=== PATIENT | female | born 1975 ===

== ENCOUNTER 2020-08-12 10:29 | Emergency (ER) | payer OTHER, SELFPAY ==
[2020-08-12 10:46] VITALS: BP 152/88; PULSE 94; RESP 16; TEMP 36.7; O2SAT 98; BMI 27.4
--- NOTE | 2020-08-12 10:55 | ED_ITS ---
HPI - Back Pain/Injury General Chief Complaint: Back Pain/Injury Stated Complaint: fell back pain,also med refill Time Seen by Provider: 08/12/20 10:55 Source: patient Mode of arrival: ambulatory History of Present Illness HPI Narrative: 44-year-old female with a past medical history of asthma, hyperlipidemia, diabetes, presenting to ED complaining of headache, neck pain, & low back pain s/p mechanical fall on the snow 2 days ago. Reports slipped and fell, denies preceding including CP/SOB/lightheadedness/dizziness. Admits having tailbone and head, denies LOC. Denies taking anticoagulation. Patient requesting multiple medication prescription refills as recently moved from [place] 1 month ago had has not establish care with a primary care doctor. Reports has been out of medications for about 1 week, was taking less doses to stretch them. Denies vision changes nausea/vomiting, abdominal pain, urinary continence retention, SI/HI MD elicited complaint: back pain Related Data Previous Rx's Medication Instructions Recorded amitriptyline 75 mg PO DAILY #30 tab 08/12/20 bupropion HCl 300 mg PO QAM #30 tab 08/12/20 gabapentin 800 mg PO TID #30 tab 08/12/20 insulin lispro protamin-lispro 20 unit SUBCUT TID #10 ml 08/12/20 [Humalog Mix 50-50 Insuln U-100] lidocaine [Lidoderm] 1 patch TOPICAL DAILY PRN #30 ea 08/12/20 MDD remove after 12 hours quetiapine 200 mg PO DAILY #30 tab 08/12/20 temazepam 30 mg PO BEDTIME PRN #10 cap 08/12/20 trazodone 150 mg PO BEDTIME #30 tab 08/12/20 Allergies Allergy/AdvReac Type Severity Reaction Status Date / Time Sulfa (Sulfonamide Allergy Unknown Verified 08/12/20 10:46 Antibiotics) Review of Systems Review of Systems: Constitutional: No Weight loss, No Fever, No Chills Cardiovascular: No Chest Pain, No SOB Respiratory: No Cough, No Sputum, No Wheezing Gastrointestinal: No Nausea, No Vomiting, No Abdominal pain Genitourinary: No Urinary Frequency, No Hematuria, No Urinary Incontinence/retention, No Urgency, No Flank Pain Musculoskeletal: +back and neck pain, No Myalgias, No Joint Swelling Skin: No Skin Lesions, No rash Neuro: No Weakness, No Numbness, No Paresthesias, +headache, No LOC Psych: No SI/HI Yes all other systems are reviewed and are negative FORMERLY [facility], [facility] Past Medical History Attestation statement: The following information was validated with the patient. Medical History (Updated 08/12/20 @ 12:33 by CYNTHIA Obando) Asthma High cholesterol IDDM (insulin dependent diabetes mellitus) Surgical History (Updated 08/12/20 @ 10:50 by Perla Hassan) H/O tubal ligation H/O: hysterectomy Social History Social History Advance Directives: No Advance Directives Information Provided: Yes Physical Exam Vital Signs: Vital Signs: Last Vital Signs Temp 97.4 F 08/12/20 13:18 Pulse 91 08/12/20 13:18 Resp 16 08/12/20 13:18 BP 114/77 08/12/20 13:18 Pulse Ox 96 08/12/20 13:18 Body Mass Index 27.4 Const: General: cooperative and healthy appearing Orientation/consciousness: patient oriented x3 Limitations: no limitations HENMT: Other: +ttp to right posterior scalp Head: Yes normal to inspection, Yes No palpable skull fracture present, No Beltran's sign, No contusion, No hematoma, No laceration and No raccoon eyes Ears: hearing grossly normal bilaterally General nose exam: Normal external nose present Face and sinus: Yes normal facial exam Mouth: Normal oral and palatal mucosa present Throat: Yes uvula midline Eyes: General: appearance normal, both eyes and all related structures Pupils: Equal, round and reactive pupils present EOM: EOMs intact bilaterally Neck: Other: No midline cervical spinous tenderness or step-offs. + bilateral paraspinal tenderness Neck: Yes normal visual inspection Resp: Effort & Inspection: normal respiratory effort Cardio: Rate: regular rate GI: Inspection: Yes normal to inspection Palpation (GI): Soft to palpation, nontender, no guarding and not rigid Back/Spine/Pelvis: Other: No midline thoracic or lumbar spinous tenderness. No deformity. + upper thoracic and lower lumbar paraspinal/MSK tenderness to palpation Skin: Rashes: no rashes Wounds: no wounds Neuro: Other: No saddle anesthesia, ambulating with steady gait General: patient oriented x3, gait normal, tone normal and moves all extremities Cranial nerves: Yes Equal, round and reactive pupils present Gait exam (Neuro): Normal gait present Motor exam (neuro): 5/5 motor strength present throughout Extrem: General: Yes normal to inspection Course Course Course Narrative: * POC 268 * Head CT w/o acute findings, C-spine CT with mild degenerative changes, no fracture or dislocation * Imaging results discussed with patient including worrisome signs and symptoms and strict return precautions. Discussed that she is to establish care with PCP, she verbalized understanding. * 1357- patient requesting back XR's > will obtain lumbar spine x-rays prior to DC * 1536--lumbar x-ray unremarkable MDM - Back Pain/Injury MDM Narrative Medical decision making narrative: 44-year-old female with a past medical history of asthma, hyperlipidemia, diabetes, presenting to ED complaining of headache, neck pain, & low back pain s/p mechanical fall on the snow 2 days ago & requesting multiple medication prescription refills as recently moved from [place] 1 month ago had has not establish care with a primary care doctor. On exam VSS, NAD/well-appearing, no midline spine tenderness throughout, no red flag symptoms. Low concern for cauda equina/cord compression. Lower concern for ICH/fracture. Likely MSK pain. Patient brought empty bottles of prescriptions to ED, last refilled on 06/30/2020 Discussed with patient importance of establishing care with a PCP due to high doses/controlled substances which she is prescribed Plan: Head/C-spine CT, POC glucose, refill Rx's Lab Data Labs: Lab Results 08/12/20 Range/Units 11:53 POC Glucose 268 H (60-115) mg/dL Discharge Plan Discharge Clinical Impression: Neck pain, Medication refill Back pain Qualifiers: Back pain location: back pain in unspecified location Chronicity: acute Back pain laterality: bilateral Qualified Code(s): M54.9 - Dorsalgia, unspecified Fall Qualifiers: Encounter type: initial encounter Qualified Code(s): W19.XXXA - Unspecified fall, initial encounter Patient Disposition: Home, Self-Care Instructions: Back Pain (ED), Medicine Refill (ED) Additional Instructions: Your imaging studies did not show any acute findings Your pain is likely musculoskeletal Lidoderm patches are numbing patches, apply to painful area In addition take Tylenol and ibuprofen at home If symptoms persist or worsen, pain becomes unbearable, you developed urinary retention or incontinence, or weakness return to the ED If he develop constant worsening headache, persistent nausea/vomiting, visual change or loss return to the ED Continue taking prescribed medications, however you need to establish care with a primary care doctor for continued refills of her prescriptions If you have thoughts of hurting herself or hurting others return to the ED im mediately Prescriptions: New trazodone 150 mg tablet 150 mg PO BEDTIME Qty: 30 RF: 0 temazepam 30 mg capsule 30 mg PO BEDTIME PRN (Reason: sleep) Qty: 10 RF: 0 bupropion HCl 300 mg tablet extended release 24 hr 300 mg PO QAM Qty: 30 RF: 0 quetiapine 200 mg tablet 200 mg PO DAILY Qty: 30 RF: 0 amitriptyline 75 mg tablet 75 mg PO DAILY Qty: 30 RF: 0 gabapentin 800 mg tablet 800 mg PO TID Qty: 30 RF: 0 Humalog Mix 50-50 Insuln U-100 100 unit/mL (50-50) suspension 20 unit subcut TID Qty: 10 RF: 1 lidocaine [Lidoderm] 5 % adhesive patch,medicated 1 patch topical DAILY MDD remove after 12 hours PRN (Reason: pain) Qty: 30 RF: 0 Referrals: Yoni Altamirano MD [Physician] - 2 days De Loyd MD [Physician] - 2 days Anika Boykin MD [Physician] - 2 days Print Language: Chinese
--- NOTE | 2020-08-12 11:13 | CT_ITS ---
EXAMINATION: HEAD CT AND CERVICAL SPINE CT CLINICAL INFORMATION: Trauma/fall. Hit head. COMPARISON: None TECHNIQUE: Axial images through the head and cervical spine without contrast. Sagittal and coronal reconstructions on the technologist workstation were performed. Patient dose 1297+6 1 5 mg/cm This CT examination was performed using dose optimization techniques as appropriate, variously including the following: *Automated exposure control *Adjustment of mA and/or kV according to patient size (this includes techniques or standardized protocols for targeted exams where dose is matched to indication/reason for exam; i.e. extremities or head) *Use of iterative reconstruction technique FINDINGS: Head CT: There is no evidence of an extra-axial collection. There is no evidence of intra-axial or extra-axial hemorrhage. The ventricles and extra-axial CSF spaces are appropriate. Bridges-white matter differentiation is normal. No mass, mass effect or infarct is seen. Review at bone windows is normal. No skull fracture is seen. There are inflammatory changes seen in the right maxillary sinus. Cervical spine: Bone alignment is normal. No fracture or dislocation is seen. There is evidence of mild degenerative spondylosis from C4-C5 to C6-C7. Disc spaces are normal. Prevertebral soft tissues are normal. There is shotty cervical lymphadenopathy. Visualized lung apices are clear. CT/CT cervical spine wo con IMPRESSION: Head CT: Unremarkable exam. Cervical spine: Mild degenerative changes. No fracture or dislocation.
[2020-08-12 11:58] LABS: Glucose, Whole Blood 268 mg/dL (60-115)
--- NOTE | 2020-08-12 13:17 | PC.NURSE ---
pt requesting pain medication prior to dc, steffany morataya aware, awaiting strategic communications specialist
[2020-08-12 13:18] VITALS: BP 114/77; PULSE 91; RESP 16; TEMP 36.3; O2SAT 96
[2020-08-12] MEDS: Cyclobenzaprine HCl 5 MG TABLET PO (13:49)
[2020-08-12] MEDS: Lidocaine 4 % Patch ADH..PATCH 1 PATCH TRANSDERMA (13:50)
[2020-08-12] MEDS: Acetaminophen 325 MG TABLET 650 MG PO (13:50)
--- NOTE | 2020-08-12 13:55 | XR_ITS ---
EXAMINATION: XR LUMBOSACRAL SPINE CLINICAL INFORMATION: Fall COMPARISON: None TECHNIQUE: Three views of the lumbosacral spine. FINDINGS: Bone alignment is normal. No fracture or dislocation is seen. Disc spaces are normal. XR/XR lumbar spine 2-3V IMPRESSION: Unremarkable examination.
--- NOTE | 2020-08-12 13:56 | PC.NURSE ---
PT NOW REQUESTING LOWER BACK XRAYS PRIOR TO DC, PA TRACY AWARE AND FILMS TO BE ORDERED
== END 2020-08-12 15:52 | disposition home or self-care (01) ==
PROVIDERS: Emergency Provider Emergency Medicine
DX: S39.92XA Unspecified injury of lower back, initial encounter (principal); M54.2 Cervicalgia; M54.9 Dorsalgia, unspecified; G44.309 Post-traumatic headache, unspecified, not intractable; W01.0XXA Fall on same level from slipping, tripping and stumbling without subsequent striking against object, initial encounter; Y93.9 Activity, unspecified; Y92.9 Unspecified place or not applicable; Y99.9 Unspecified external cause status; Z79.899 Other long term (current) drug therapy
CPT/HCPCS: 70450; 72100; 72125; 82947; 99283; 99284

== ENCOUNTER 2022-11-18 08:03 | Outpatient (REF) | payer MEDICAID, SELFPAY ==
--- NOTE | ~2022-11-18 | FL_ITS ---
EXAMINATION: FL BARIUM SWALLOW CLINICAL INFORMATION: Dysphagia/vomiting. COMPARISON: None available. TECHNIQUE: Barium swallow examination is performed using fluoroscopic evaluation in addition to multiple fluoroscopic spot views. The patient is imaged both upright and prone and using both thick and thin sulfate along with effervescent granules. Fluoroscopy time: 2.7 minutes DAP: 5.826 Gycm2 Images: 35 FINDINGS: There is normal elevation of the soft palate while saying 'candy'. There is normal apposition of the focal cords while saying 'E'. There was 1 episode of minimal aspiration which elicited a cough reflex. No nasopharyngeal reflux identified. No cricopharyngeal hypertrophy or Zenker's diverticulum. Patient swallowed thin and thick barium as well as half-inch diameter barium tablet and barium-coated turkey. There is noted to be esophageal hypomotility without dysmotility. No mucosal abnormality was appreciated. No hiatal hernia. No gastroesophageal reflux elicited including with water siphon test. FL/FL barium swallow IMPRESSION: 1 episode of aspiration with thick liquid which elicited a cough reflex. Mild esophageal hypomotility.
[2022-11-21 15:28] LABS: Anti Nuclear Antibody Screen NEGATIVE (NEGATIVE)
== END 2022-11-18 08:04 | disposition home or self-care (01) ==
LOC: HO.XRAY 08:03
PROVIDERS: PCP Internal Medicine; Visit Provider Internal Medicine
DX: R13.12 Dysphagia, oropharyngeal phase (principal)
CPT/HCPCS: 36415; 74220; 86038; 86039

== ENCOUNTER 2022-11-26 13:09 | Outpatient (REF) | payer MEDICAID, SELFPAY ==
--- NOTE | ~2022-11-26 | MR_ITS ---
EXAMINATION: MRI OF THE BRAIN WITHOUT CONTRAST CLINICAL INFORMATION: Classic migraine and white matter signal on prior MRI scan. COMPARISON: There are no prior images available for comparison at time of dictation. Report of MRI scan of the brain 09/11/2013 was reviewed. TECHNIQUE: MRI of the brain was obtained using routine sequences without contrast. FINDINGS: No diffusion abnormalities are identified to suggest an acute or subacute infarct. No mass effect or midline shift is seen. The ventricles and sulci are normal in size. There is a cavum septum interpositum. There are multiple scattered areas of hyperintense T2 and FLAIR signal in the periventricular and subcortical white matter, which are nonspecific but may be in a distribution suggestive of demyelination in the correct clinical setting. The patient is relatively young for microvascular ischemic changes. No extra-axial fluid collections are seen. The brainstem and cerebellum are normal. No pathologic magnetic susceptibility artifact is identified on the gradient refocused acquisition. The craniovertebral junction, marrow signal, and midline structures are normal. The major intracranial flow-voids at the level of the [place] are preserved. The dural venous sinus flow-voids are maintained. There is trace fluid at the right mastoid tip. There is mucoperiosteal thickening in the right maxillary and bilateral ethmoid sinuses. The nasal septum is significantly deviated to the left. MR/MR head/brain wo con IMPRESSION: 1. There are no acute bleeds or infarcts. No masses are demonstrated. 2. There are scattered areas of hyperintense T2 and FLAIR signal in the white matter, which by report were present on prior imaging. There are in a nonspecific distribution, but may be consistent with demyelination in the correct clinical setting. The patient is relatively young for chronic microvascular ischemic changes.
== END 2022-11-26 13:10 | disposition home or self-care (01) ==
LOC: HO.MRI 13:09
PROVIDERS: Visit Provider Internal Medicine
DX: G43.109 Migraine with aura, not intractable, without status migrainosus (principal)
CPT/HCPCS: 70551

== ENCOUNTER 2022-12-25 12:33 | Emergency (ER) | payer MEDICAID, SELFPAY ==
--- NOTE | ~2022-12-25 | XR_ITS ---
EXAMINATION: XR CHEST CLINICAL INFORMATION: Chest pain. COMPARISON: None available. TECHNIQUE: Frontal view of the chest was obtained. FINDINGS: No significant abnormality is noted involving the heart, lungs, mediastinum, bony thorax or soft tissues. XR/XR chest 1V IMPRESSION: Unremarkable chest examination.
--- NOTE | ~2022-12-25 | CT_ITS ---
EXAMINATION: CT ABDOMEN AND PELVIS WITH CONTRAST CLINICAL INFORMATION: Abdominal pain. COMPARISON: None available. TECHNIQUE: Multidetector volumetric images were obtained from the superior aspect of the liver through the pubic symphysis following administration 85 mL of Omnipaque 350 intravenous contrast. Sagittal and coronal reformatted images were obtained on the technologist's workstation. Oral contrast: No This CT examination was performed using dose optimization techniques as appropriate, variously including the following: *Automated exposure control *Adjustment of mA and/or kV according to patient size (this includes techniques or standardized protocols for targeted exams where dose is matched to indication/reason for exam; i.e. extremities or head) *Use of iterative reconstruction technique DLP: 564 mGy-cm FINDINGS: LUNG BASES: The lung bases appear clear, with no evidence of inflammation or nodules. LIVER, GALLBLADDER, AND BILIARY TREE: The liver appears unremarkable in size, shape, and attenuation. No focal hepatic lesion or biliary ductal dilatation is appreciated. Unremarkable appearance of the gallbladder. PANCREAS: Unremarkable SPLEEN: Unremarkable ADRENAL GLANDS: Unremarkable KIDNEYS AND URETERS: The kidneys appear unremarkable in size, shape, and attenuation. No hydronephrosis, hydroureter, or calculi seen. BLADDER: Unremarkable GASTROINTESTINAL TRACT: The small and large bowel appear unremarkable. ABDOMINAL WALL: No significant hernia is appreciated. LYMPH NODES: No evidence of adenopathy by size criteria. VASCULAR: Unremarkable PELVIC VISCERA: Status post hysterectomy. Approximately 5.4 x 4.5 x 3.8 cm, smooth, ovoid left adnexal structure containing an approximately 1 cm peripheral calcification (image 77, axial series 3; image 48, coronal series 5). OSSEOUS STRUCTURES: Unremarkable CT/CT abdomen pelvis w IV con IMPRESSION: No acute finding. Approximately 5.4 x 4.5 x 3.8 cm, smooth, ovoid left adnexal structure containing an approximately 1 cm peripheral calcification. Recommend pelvic ultrasound performed on a nonemergent basis for further characterization.
--- NOTE | 2022-12-25 12:35 | ECG_ITS ---
Test Reason : cp Blood Pressure : / mmHG Vent. Rate : 109 BPM Atrial Rate : 109 BPM P-R Int : 164 ms QRS Dur : 158 ms QT Int : 378 ms P-R-T Axes : 059 -36 096 degrees QTc Int : 509 ms Sinus tachycardia Possible Left atrial enlargement Left axis deviation Left bundle branch block Abnormal ECG No previous ECGs available Referred By: Sindhu Shen Electronically Signed By:GISEL ALONSO MD
--- NOTE | 2022-12-25 12:36 | ED.CHESTPAIN ---
HPI - Chest Pain General Chief Complaint: Abdominal Pain <CYNTHIA Sullivan - Last Filed: 12/25/22 12:59> Stated Complaint: high bp, chest pain,back pain <CYNTHIA Sullivan - Last Filed: 12/25/22 12:59> Time Seen by Provider: 12/25/22 13:14 <CYNTHIA Sullivan - Last Filed: 12/25/22 12:59> Source: patient <Javi Madera MD - Last Filed: 12/25/22 16:09> Mode of arrival: ambulatory <Javi Madera MD - Last Filed: 12/25/22 16:09> Limitations: no limitations <Javi Madera MD - Last Filed: 12/25/22 16:09> History of Present Illness HPI narrative: This is 47-year-old patient presented to the emergency department complaining of nausea vomiting upper abdominal pain. Patient has history of diabetes high blood pressure. She has chest pain vomiting. <Javi Madera MD - Last Filed: 12/25/22 16:09> MD complaint: chest pain <Javi Madera MD - Last Filed: 12/25/22 16:09> Onset (ago): day(s) (1) <Javi Madera MD - Last Filed: 12/25/22 16:09> Timing of current episode: episodic <Javi Madera MD - Last Filed: 12/25/22 16:09> Onset: during rest <Javi Madera MD - Last Filed: 12/25/22 16:09> Pain location: substernal <Javi Madera MD - Last Filed: 12/25/22 16:09> Pain radiation: none <Javi Madera MD - Last Filed: 12/25/22 16:09> Severity: mild <Javi Madera MD - Last Filed: 12/25/22 16:09> Quality: aching <Javi Madera MD - Last Filed: 12/25/22 16:09> Exacerbating factors: nothing <Javi Madera MD - Last Filed: 12/25/22 16:09> Risk Factors Coronary artery disease risk factors: diabetes <Javi Madera MD - Last Filed: 12/25/22 16:09> Thoracic aortic dissection risk factors: none <Javi Madera MD - Last Filed: 12/25/22 16:09> Related Data Home Medications: Previous Rx's Medication Instructions Recorded amitriptyline 75 mg tablet 75 mg PO DAILY #30 tabs 08/12/20 bupropion HCl 300 mg 24 hr tablet, 300 mg PO QAM #30 tabs 08/12/20 extended release gabapentin 800 mg tablet 800 mg PO TID #30 tabs 08/12/20 insulin lispro protamine-lispro 20 unit (0.2 mL) subcut TID #10 mL 08/12/20 100 unit/mL (50-50) subcutaneous susp (Humalog Mix 50-50 Insuln U-100) lidocaine 5 % topical patch 1 patch topical DAILY PRN pain #30 08/12/20 (Lidoderm) ea quetiapine 200 mg tablet 200 mg PO DAILY #30 tabs 08/12/20 temazepam 30 mg capsule 30 mg PO BEDTIME PRN sleep #10 caps 08/12/20 trazodone 150 mg tablet 150 mg PO BEDTIME #30 tabs 08/12/20 <CYNTHIA Sullivan - Last Filed: 12/25/22 12:59> Allergies/Adverse Reactions: Allergies Allergy/AdvReac Type Severity Reaction Status Date / Time Sulfa (Sulfonamide Allergy Unknown Verified 12/25/22 12:57 Antibiotics) <CYNTHIA Sullivan - Last Filed: 12/25/22 12:59> Review of Systems Constitutional: Constitutional: Reports no additional constitutional complaints <Javi Madera MD - Last Filed: 12/25/22 16:09> ENT: Reports system reviewed and no additional complaints, except as documented <Javi Madera MD - Last Filed: 12/25/22 16:09> Respiratory: Respiratory: Reports no additional respiratory complaints <Javi Madera MD - Last Filed: 12/25/22 16:09> Neurologic: Reports system reviewed and no additional complaints, except as documented <Javi Madera MD - Last Filed: 12/25/22 16:09> [facility] [place] Past Medical History [facility] [place] Narrative: Diabetes/htn <Javi Madera MD - Last Filed: 12/25/22 16:09> Medical History: Medical History Asthma High cholesterol IDDM (insulin dependent diabetes mellitus) <CYNTHIA Sullivan - Last Filed: 12/25/22 12:59> Surgical History: Surgical History H/O tubal ligation H/O: hysterectomy <CYNTHIA Sullivan - Last Filed: 12/25/22 12:59> Social History Social History: Social History Alcohol intake: never Smoked in Last 30 Days: No Use of substances other than those prescribed or required for medical reasons: No Advance Directives: No Advance Directives Information Provided: Yes Patient : No <CYNTHIA Sullivan - Last Filed: 12/25/22 12:59> Physical Exam Vital Signs: Vital Signs: Last Vital Signs Temp 98 F 12/25/22 15:13 Pulse 107 H 12/25/22 13:23 Resp 15 12/25/22 15:13 BP 140/69 H 12/25/22 15:13 Pulse Ox 98 12/25/22 15:13 O2 Del Method Room Air 12/25/22 15:13 BMI result Body Mass Index 28.6 <CYNTHIA Sullivan - Last Filed: 12/25/22 12:59> Vital Signs: Last Vital Signs Temp 98 F 12/25/22 15:13 Pulse 107 H 12/25/22 13:23 Resp 15 12/25/22 15:13 BP 140/69 H 12/25/22 15:13 Pulse Ox 98 12/25/22 15:13 O2 Del Method Room Air 12/25/22 15:13 BMI result Body Mass Index 28.6 <Javi Madera MD - Last Filed: 12/25/22 16:09> Vital Signs: Last Vital Signs Temp 98 F 12/25/22 15:13 Pulse 107 H 12/25/22 13:23 Resp 15 12/25/22 15:13 BP 140/69 H 12/25/22 15:13 Pulse Ox 98 12/25/22 15:13 O2 Del Method Room Air 12/25/22 15:13 BMI result Body Mass Index 28.6 <Claudia Abel MD - Last Filed: 12/25/22 18:03> Const: General: cooperative and comfortable <MD Carl Andrews Last Filed: 12/25/22 16:09> Nutritional Appearance: average body habitus <Javi Madera MD - Last Filed: 12/25/22 16:09> HEENT: Head: Yes normal to inspection <MD Carl Andrews Last Filed: 12/25/22 16:09> General nose exam: Normal external nose present <MD Carl Andrews Last Filed: 12/25/22 16:09> Face and sinus: Yes normal facial exam <MD Carl Andrews Last Filed: 12/25/22 16:09> Mouth: Normal oral and palatal mucosa present <MD Carl Andrews Last Filed: 12/25/22 16:09> Neck: Neck: Yes normal visual inspection and Yes full ROM <MD Carl Andrews Last Filed: 12/25/22 16:09> Chest: Chest palpation & inspection: normal inspection of the chest <MD Carl Andrews Last Filed: 12/25/22 16:09> Resp: Effort & Inspection: normal respiratory effort <MD Carl Andrews Last Filed: 12/25/22 16:09> Auscultation: clear to auscultation bilaterally <MD Carl Andrews Last Filed: 12/25/22 16:09> Cardio: Jugular venous distension: no JVD <MD Carl Andrews Last Filed: 12/25/22 16:09> Rate: regular rate <MD Carl Andrews Last Filed: 12/25/22 16:09> Rhythm: regular rhythm <MD Carl Andrews Last Filed: 12/25/22 16:09> GI: Inspection: Yes normal to inspection <MD Carl Andrews Last Filed: 12/25/22 16:09> Palpation (GI): Soft to palpation, not firm, nontender and no guarding <MD Carl Andrews Last Filed: 12/25/22 16:09> Skin: General skin exam: no rashes or lesions noted, elasticity normal and turgor normal <Javi Madera MD - Last Filed: 12/25/22 16:09> Course Course Course Narrative: RMNathaniel: 47-year-old female with a past medical history of asthma, HLD, diabetes, HTN, presenting to the ED complaining of HTN at home last night, epigasrtic abdominal pain, nausea & vomiting. states pain radiates up chest to back described as burning w/ SOB. Reports hx anxiety with similar sx. Tachycardic, anxious, BP 137/73 in triage. EKG showing LBBB (no priors to compare, pt reports no known hx block) EKG, Labs, CXR ordered Full HPI, ROS and PE to be performed by primary ED provider. <CYNTHIA Sullivan - Last Filed: 12/25/22 12:59> Reevaluation(s) Reevaluation #1: REPEAT ELECTROCARDIOGRAM A NOW SHOW THAT SHE IS STILL IN SINUS RHYTHM A RATE 97 BUT A NARROW COMPLEX HER PRIOR LEFT BUNDLE-BRANCH BLOCK RESOLVED <Javi Madera MD - Last Filed: 12/25/22 16:09> Time: 14:17 <Javi Madera MD - Last Filed: 12/25/22 16:09> Reevaluation #2: doing better will need repeat tropi pt signed out to Dr Abel pending repeat tropi and ct <Javi Madera MD - Last Filed: 12/25/22 16:09> Medications Administered Discontinued Medications Generic Name Dose Route Start Last Admin Trade Name Goran PRN Reason Stop Dose Admin Famotidine 20 mg 12/25/22 14:00 12/25/22 14:03 Famotidine/Pf 20 Mg/2 Ml Vial IVPUSH 12/25/22 14:01 20 mg ONCE ONE Administration Sodium Chloride 1,000 mls @ 999 mls/hr 12/25/22 13:30 12/25/22 16:34 Ns IVCONT 12/25/22 14:30 Infused .Q1H1M RUKHSANA Infusion Iohexol 100 ml 12/25/22 16:25 12/25/22 16:26 Iohexol 350 Mg/Ml 100 Ml Infus..Btl IV 12/25/22 16:26 85 ml ONCE ONE Administration Ondansetron HCl 4 mg 12/25/22 13:18 12/25/22 14:03 Ondansetron Hcl 4 Mg/2 Ml Vial IVPUSH 12/25/22 13:19 4 mg ONCE ONE Administration Ondansetron HCl 4 mg 12/25/22 13:19 12/25/22 14:37 Ondansetron Hcl 4 Mg/2 Ml Vial IVPUSH 12/25/22 13:20 Not Given ONCE ONE <CYNTHIA Sullivan - Last Filed: 12/25/22 12:59> Medications Administered Discontinued Medications Generic Name Dose Route Start Last Admin Trade Name Freq PRN Reason Stop Dose Admin Famotidine 20 mg 12/25/22 14:00 12/25/22 14:03 Famotidine/Pf 20 Mg/2 Ml Vial IVPUSH 12/25/22 14:01 20 mg ONCE ONE Administration Sodium Chloride 1,000 mls @ 999 mls/hr 12/25/22 13:30 12/25/22 16:34 Ns IVCONT 12/25/22 14:30 Infused .Q1H1M RUKHSANA Infusion Iohexol 100 ml 12/25/22 16:25 12/25/22 16:26 Iohexol 350 Mg/Ml 100 Ml Infus..Btl IV 12/25/22 16:26 85 ml ONCE ONE Administration Ondansetron HCl 4 mg 12/25/22 13:18 12/25/22 14:03 Ondansetron Hcl 4 Mg/2 Ml Vial IVPUSH 12/25/22 13:19 4 mg ONCE ONE Administration Ondansetron HCl 4 mg 12/25/22 13:19 12/25/22 14:37 Ondansetron Hcl 4 Mg/2 Ml Vial IVPUSH 12/25/22 13:20 Not Given ONCE ONE <Javi Madera MD - Last Filed: 12/25/22 16:09> Medications Administered Discontinued Medications Generic Name Dose Route Start Last Admin Trade Name Freq PRN Reason Stop Dose Admin Famotidine 20 mg 12/25/22 14:00 12/25/22 14:03 Famotidine/Pf 20 Mg/2 Ml Vial IVPUSH 12/25/22 14:01 20 mg ONCE ONE Administration Sodium Chloride 1,000 mls @ 999 mls/hr 12/25/22 13:30 12/25/22 16:34 Ns IVCONT 12/25/22 14:30 Infused .Q1H1M RUKHSANA Infusion Iohexol 100 ml 12/25/22 16:25 12/25/22 16:26 Iohexol 350 Mg/Ml 100 Ml Infus..Btl IV 12/25/22 16:26 85 ml ONCE ONE Administration Ondansetron HCl 4 mg 12/25/22 13:18 12/25/22 14:03 Ondansetron Hcl 4 Mg/2 Ml Vial IVPUSH 12/25/22 13:19 4 mg ONCE ONE Administration Ondansetron HCl 4 mg 12/25/22 13:19 12/25/22 14:37 Ondansetron Hcl 4 Mg/2 Ml Vial IVPUSH 12/25/22 13:20 Not Given ONCE ONE <Claudia Abel MD - Last Filed: 12/25/22 18:03> Medical Decision Making Medical Decision Making MDM Narrative: PATIENT PRESENTED WITH UPPER ABDOMINAL PAIN AND VOMITING WILL GET LABS EKG REASSESSED <Javi Madera MD - Last Filed: 12/25/22 16:09> PATIENT PRESENTED WITH UPPER ABDOMINAL PAIN AND VOMITING WILL GET LABS EKG REASSESSED 1754: This patient was signed out to me by Dr. Madera with follow-up for CT abdomen/pelvis, patient is no longer nauseous or vomiting, and follow-up on a troponin. I reviewed troponin which is undetectable, patient is without chest pain, CT abdomen pelvis is without acute findings other than noted adnexal well-circumscribed mass which they recommend workup for as an outpatient. I did discuss the case with Dr. Case who feels that this may have been a rate-related left bundle branch block appearance especially given flat troponins and patient asymptomatic at present. He does recommend outpatient workup and patient will be provided with a referral to follow-up with cardiology <Claudia Abel MD - Last Filed: 12/25/22 18:03> Differential Diagnosis Differential Diagnoses: The differential diagnosis associated with the presentation includes <Javi Madera MD - Last Filed: 12/25/22 16:09> VIRAL ILLNESS/GASTRITIS/PEPTIC ULCER DISEASE <Javi Madera MD - Last Filed: 12/25/22 16:09> Consult Healthcare Provider Management of the patient was discussed with: Venue Attendant <Claudia Abel MD - Last Filed: 12/25/22 18:03> Please see the discussion above <Claudia Abel MD - Last Filed: 12/25/22 18:03> Lab Data MDM Lab Attestation statement: I reviewed the patient's lab results. <Javi Madera MD - Last Filed: 12/25/22 16:09> Result Diagrams: 12/25/22 13:54 12/25/22 13:54 <CYNTHIA Sullivan - Last Filed: 12/25/22 12:59> Labs: Lab Results 12/25/22 12/25/22 12/25/22 Range/Units 13:54 13:54 13:54 WBC 10.9 H (4.8-10.8) X10*3/uL RBC 5.20 (4.20-5.50) X10*6/uL Hgb 15.7 (12.0-16.0) g/dl Hct 45.9 (37.0-47.0) % MCV 88.3 (80.0-98.0) fL MCH 30.2 (27.0-33.0) pg MCHC 34.2 (31.0-35.0) g/dl RDW 12.4 (11.0-16.0) % Plt Count 280 (160-400) X10*3/uL MPV 10.2 (9.4-12.3) fL Immature Gran % (Auto) 0.3 (0.0-0.4) % Neut % (Auto) 80.9 H (45-73) % Lymph % (Auto) 14.1 L (20-40) % [place] % (Auto) 3.9 (2-11) % Eos % (Auto) 0.7 (0-4) % Baso % (Auto) 0.1 (0-2) % Lymph # (Auto) 1.5 (1.2-4.9) X10*3/uL [place] # (Auto) 0.4 (0.1-1.2) X10*3/uL Eos # (Auto) 0.1 (0.0-0.4) X10*3/uL Baso # (Auto) 0.0 (0.0-0.2) X10*3/uL Abs Immat Gran (auto) 0.03 (0.00-0.03) X10*3/uL Absolute Neuts (auto) 8.9 H (2.0-8.3) x10*3/uL Absolute Nucleated RBC 0.000 (0.0-0.012) X10*3/uL Nucleated RBC % (auto) 0.0 (0.0-0.2) /100WBC PT 10.4 (10.0-13.1) SEC INR 0.9 (0.9-1.1) Sodium 134 L (135-145) mmol/L Potassium 3.9 (3.3-5.1) mmol/L Chloride 100 (96-108) mmol/L Carbon Dioxide 21 L (22-29) mmol/L Anion Gap 17 (12-20) BUN 14 (9-16) mg/dL Creatinine 0.69 (0.5-1.4) mg/dL Estim Creat Clear Calc 107.8 Estimated GFR > 60 Random Glucose 244 H (60-115) mg/dL Calcium 9.3 (8.4-10.2) mg/dL Magnesium 1.8 (1.6-2.6) mg/dL Total Bilirubin 0.4 (0.0-1.0) mg/dL Direct Bilirubin 0.1 (0.0-0.5) mg/dL AST 14 (5-31) U/L ALT 19 (0-31) U/L Alkaline Phosphatase 93 (39-117) U/L Troponin I High Sens (<3.5-17.0) ng/L Total Protein 6.9 (6.5-8.0) g/dL Albumin 4.3 (3.5-5.0) g/dL Lipase 6 L (8-78) U/L Urine Color Urine Appearance Urine pH (5.0-9.0) Ur Specific Street (1.005-1.025) Urine Protein (Neg-Trace) mg/dL Urine Glucose (UA) (Negative) mg/dL Urine Ketones (Negative) mg/dL Urine Blood (Negative) Urine Nitrite (Negative) Ur Leukocyte Esterase (Negative) Urine RBC (0-2) /HPF Urine WBC (0-5) /HPF Ur Squamous Epith Cells (0-2) /HPF Urine Bacteria (None Seen) Hyaline Casts (0-2) /LPF 12/25/22 12/25/22 12/25/22 Range/Units 13:54 14:05 16:59 WBC (4.8-10.8) X10*3/uL RBC (4.20-5.50) X10*6/uL Hgb (12.0-16.0) g/dl Hct (37.0-47.0) % MCV (80.0-98.0) fL MCH (27.0-33.0) pg MCHC (31.0-35.0) g/dl RDW (11.0-16.0) % Plt Count (160-400) X10*3/uL MPV (9.4-12.3) fL Immature Gran % (Auto) (0.0-0.4) % Neut % (Auto) (45-73) % Lymph % (Auto) (20-40) % [place] % (Auto) (2-11) % Eos % (Auto) (0-4) % Baso % (Auto) (0-2) % Lymph # (Auto) (1.2-4.9) X10*3/uL [place] # (Auto) (0.1-1.2) X10*3/uL Eos # (Auto) (0.0-0.4) X10*3/uL Baso # (Auto) (0.0-0.2) X10*3/uL Abs Immat Gran (auto) (0.00-0.03) X10*3/uL Absolute Neuts (auto) (2.0-8.3) x10*3/uL Absolute Nucleated RBC (0.0-0.012) X10*3/uL Nucleated RBC % (auto) (0.0-0.2) /100WBC PT (10.0-13.1) SEC INR (0.9-1.1) Sodium (135-145) mmol/L Potassium (3.3-5.1) mmol/L Chloride (96-108) mmol/L Carbon Dioxide (22-29) mmol/L Anion Gap (12-20) BUN (9-16) mg/dL Creatinine (0.5-1.4) mg/dL Estim Creat Clear Calc Estimated GFR Random Glucose (60-115) mg/dL Calcium (8.4-10.2) mg/dL Magnesium (1.6-2.6) mg/dL Total Bilirubin (0.0-1.0) mg/dL Direct Bilirubin (0.0-0.5) mg/dL AST (5-31) U/L ALT (0-31) U/L Alkaline Phosphatase (39-117) U/L Troponin I High Sens 3.2 < 2.7 (<3.5-17.0) ng/L Total Protein (6.5-8.0) g/dL Albumin (3.5-5.0) g/dL Lipase (8-78) U/L Urine Color Yellow Urine Appearance Clear Urine pH 5.5 (5.0-9.0) Ur Specific Street >= 1.030 H (1.005-1.025) Urine Protein Negative (Neg-Trace) mg/dL Urine Glucose (UA) >=1000 H (Negative) mg/dL Urine Ketones Trace (Negative) mg/dL Urine Blood Negative (Negative) Urine Nitrite Negative (Negative) Ur Leukocyte Esterase Negative (Negative) Urine RBC 0-2 (0-2) /HPF Urine WBC 0-5 (0-5) /HPF Ur Squamous Epith Cells 0-2 (0-2) /HPF Urine Bacteria None Seen (None Seen) Hyaline Casts 0-2 (0-2) /LPF <CYNTHIA Sullivan - Last Filed: 12/25/22 12:59> Lab Results 12/25/22 12/25/22 12/25/22 Range/Units 13:54 13:54 13:54 WBC 10.9 H (4.8-10.8) X10*3/uL RBC 5.20 (4.20-5.50) X10*6/uL Hgb 15.7 (12.0-16.0) g/dl Hct 45.9 (37.0-47.0) % MCV 88.3 (80.0-98.0) fL MCH 30.2 (27.0-33.0) pg MCHC 34.2 (31.0-35.0) g/dl RDW 12.4 (11.0-16.0) % Plt Count 280 (160-400) X10*3/uL MPV 10.2 (9.4-12.3) fL Immature Gran % (Auto) 0.3 (0.0-0.4) % Neut % (Auto) 80.9 H (45-73) % Lymph % (Auto) 14.1 L (20-40) % [place] % (Auto) 3.9 (2-11) % Eos % (Auto) 0.7 (0-4) % Baso % (Auto) 0.1 (0-2) % Lymph # (Auto) 1.5 (1.2-4.9) X10*3/uL [place] # (Auto) 0.4 (0.1-1.2) X10*3/uL Eos # (Auto) 0.1 (0.0-0.4) X10*3/uL Baso # (Auto) 0.0 (0.0-0.2) X10*3/uL Abs Immat Gran (auto) 0.03 (0.00-0.03) X10*3/uL Absolute Neuts (auto) 8.9 H (2.0-8.3) x10*3/uL Absolute Nucleated RBC 0.000 (0.0-0.012) X10*3/uL Nucleated RBC % (auto) 0.0 (0.0-0.2) /100WBC PT 10.4 (10.0-13.1) SEC INR 0.9 (0.9-1.1) Sodium 134 L (135-145) mmol/L Potassium 3.9 (3.3-5.1) mmol/L Chloride 100 (96-108) mmol/L Carbon Dioxide 21 L (22-29) mmol/L Anion Gap 17 (12-20) BUN 14 (9-16) mg/dL Creatinine 0.69 (0.5-1.4) mg/dL Estim Creat Clear Calc 107.8 Estimated GFR > 60 Random Glucose 244 H (60-115) mg/dL Calcium 9.3 (8.4-10.2) mg/dL Magnesium 1.8 (1.6-2.6) mg/dL Total Bilirubin 0.4 (0.0-1.0) mg/dL Direct Bilirubin 0.1 (0.0-0.5) mg/dL AST 14 (5-31) U/L ALT 19 (0-31) U/L Alkaline Phosphatase 93 (39-117) U/L Troponin I High Sens (<3.5-17.0) ng/L Total Protein 6.9 (6.5-8.0) g/dL Albumin 4.3 (3.5-5.0) g/dL Lipase 6 L (8-78) U/L Urine Color Urine Appearance Urine pH (5.0-9.0) Ur Specific Street (1.005-1.025) Urine Protein (Neg-Trace) mg/dL Urine Glucose (UA) (Negative) mg/dL Urine Ketones (Negative) mg/dL Urine Blood (Negative) Urine Nitrite (Negative) Ur Leukocyte Esterase (Negative) Urine RBC (0-2) /HPF Urine WBC (0-5) /HPF Ur Squamous Epith Cells (0-2) /HPF Urine Bacteria (None Seen) Hyaline Casts (0-2) /LPF 12/25/22 12/25/22 12/25/22 Range/Units 13:54 14:05 16:59 WBC (4.8-10.8) X10*3/uL RBC (4.20-5.50) X10*6/uL Hgb (12.0-16.0) g/dl Hct (37.0-47.0) % MCV (80.0-98.0) fL MCH (27.0-33.0) pg MCHC (31.0-35.0) g/dl RDW (11.0-16.0) % Plt Count (160-400) X10*3/uL MPV (9.4-12.3) fL Immature Gran % (Auto) (0.0-0.4) % Neut % (Auto) (45-73) % Lymph % (Auto) (20-40) % [place] % (Auto) (2-11) % Eos % (Auto) (0-4) % Baso % (Auto) (0-2) % Lymph # (Auto) (1.2-4.9) X10*3/uL [place] # (Auto) (0.1-1.2) X10*3/uL Eos # (Auto) (0.0-0.4) X10*3/uL Baso # (Auto) (0.0-0.2) X10*3/uL Abs Immat Gran (auto) (0.00-0.03) X10*3/uL Absolute Neuts (auto) (2.0-8.3) x10*3/uL Absolute Nucleated RBC (0.0-0.012) X10*3/uL Nucleated RBC % (auto) (0.0-0.2) /100WBC PT (10.0-13.1) SEC INR (0.9-1.1) Sodium (135-145) mmol/L Potassium (3.3-5.1) mmol/L Chloride (96-108) mmol/L Carbon Dioxide (22-29) mmol/L Anion Gap (12-20) BUN (9-16) mg/dL Creatinine (0.5-1.4) mg/dL Estim Creat Clear Calc Estimated GFR Random Glucose (60-115) mg/dL Calcium (8.4-10.2) mg/dL Magnesium (1.6-2.6) mg/dL Total Bilirubin (0.0-1.0) mg/dL Direct Bilirubin (0.0-0.5) mg/dL AST (5-31) U/L ALT (0-31) U/L Alkaline Phosphatase (39-117) U/L Troponin I High Sens 3.2 < 2.7 (<3.5-17.0) ng/L Total Protein (6.5-8.0) g/dL Albumin (3.5-5.0) g/dL Lipase (8-78) U/L Urine Color Yellow Urine Appearance Clear Urine pH 5.5 (5.0-9.0) Ur Specific Street >= 1.030 H (1.005-1.025) Urine Protein Negative (Neg-Trace) mg/dL Urine Glucose (UA) >=1000 H (Negative) mg/dL Urine Ketones Trace (Negative) mg/dL Urine Blood Negative (Negative) Urine Nitrite Negative (Negative) Ur Leukocyte Esterase Negative (Negative) Urine RBC 0-2 (0-2) /HPF Urine WBC 0-5 (0-5) /HPF Ur Squamous Epith Cells 0-2 (0-2) /HPF Urine Bacteria None Seen (None Seen) Hyaline Casts 0-2 (0-2) /LPF <Javi Madera MD - Last Filed: 12/25/22 16:09> Lab Results 12/25/22 12/25/22 12/25/22 Range/Units 13:54 13:54 13:54 WBC 10.9 H (4.8-10.8) X10*3/uL RBC 5.20 (4.20-5.50) X10*6/uL Hgb 15.7 (12.0-16.0) g/dl Hct 45.9 (37.0-47.0) % MCV 88.3 (80.0-98.0) fL MCH 30.2 (27.0-33.0) pg MCHC 34.2 (31.0-35.0) g/dl RDW 12.4 (11.0-16.0) % Plt Count 280 (160-400) X10*3/uL MPV 10.2 (9.4-12.3) fL Immature Gran % (Auto) 0.3 (0.0-0.4) % Neut % (Auto) 80.9 H (45-73) % Lymph % (Auto) 14.1 L (20-40) % [place] % (Auto) 3.9 (2-11) % Eos % (Auto) 0.7 (0-4) % Baso % (Auto) 0.1 (0-2) % Lymph # (Auto) 1.5 (1.2-4.9) X10*3/uL [place] # (Auto) 0.4 (0.1-1.2) X10*3/uL Eos # (Auto) 0.1 (0.0-0.4) X10*3/uL Baso # (Auto) 0.0 (0.0-0.2) X10*3/uL Abs Immat Gran (auto) 0.03 (0.00-0.03) X10*3/uL Absolute Neuts (auto) 8.9 H (2.0-8.3) x10*3/uL Absolute Nucleated RBC 0.000 (0.0-0.012) X10*3/uL Nucleated RBC % (auto) 0.0 (0.0-0.2) /100WBC PT 10.4 (10.0-13.1) SEC INR 0.9 (0.9-1.1) Sodium 134 L (135-145) mmol/L Potassium 3.9 (3.3-5.1) mmol/L Chloride 100 (96-108) mmol/L Carbon Dioxide 21 L (22-29) mmol/L Anion Gap 17 (12-20) BUN 14 (9-16) mg/dL Creatinine 0.69 (0.5-1.4) mg/dL Estim Creat Clear Calc 107.8 Estimated GFR > 60 Random Glucose 244 H (60-115) mg/dL Calcium 9.3 (8.4-10.2) mg/dL Magnesium 1.8 (1.6-2.6) mg/dL Total Bilirubin 0.4 (0.0-1.0) mg/dL Direct Bilirubin 0.1 (0.0-0.5) mg/dL AST 14 (5-31) U/L ALT 19 (0-31) U/L Alkaline Phosphatase 93 (39-117) U/L Troponin I High Sens (<3.5-17.0) ng/L Total Protein 6.9 (6.5-8.0) g/dL Albumin 4.3 (3.5-5.0) g/dL Lipase 6 L (8-78) U/L Urine Color Urine Appearance Urine pH (5.0-9.0) Ur Specific Street (1.005-1.025) Urine Protein (Neg-Trace) mg/dL Urine Glucose (UA) (Negative) mg/dL Urine Ketones (Negative) mg/dL Urine Blood (Negative) Urine Nitrite (Negative) Ur Leukocyte Esterase (Negative) Urine RBC (0-2) /HPF Urine WBC (0-5) /HPF Ur Squamous Epith Cells (0-2) /HPF Urine Bacteria (None Seen) Hyaline Casts (0-2) /LPF 12/25/22 12/25/22 12/25/22 Range/Units 13:54 14:05 16:59 WBC (4.8-10.8) X10*3/uL RBC (4.20-5.50) X10*6/uL Hgb (12.0-16.0) g/dl Hct (37.0-47.0) % MCV (80.0-98.0) fL MCH (27.0-33.0) pg MCHC (31.0-35.0) g/dl RDW (11.0-16.0) % Plt Count (160-400) X10*3/uL MPV (9.4-12.3) fL Immature Gran % (Auto) (0.0-0.4) % Neut % (Auto) (45-73) % Lymph % (Auto) (20-40) % [place] % (Auto) (2-11) % Eos % (Auto) (0-4) % Baso % (Auto) (0-2) % Lymph # (Auto) (1.2-4.9) X10*3/uL [place] # (Auto) (0.1-1.2) X10*3/uL Eos # (Auto) (0.0-0.4) X10*3/uL Baso # (Auto) (0.0-0.2) X10*3/uL Abs Immat Gran (auto) (0.00-0.03) X10*3/uL Absolute Neuts (auto) (2.0-8.3) x10*3/uL Absolute Nucleated RBC (0.0-0.012) X10*3/uL Nucleated RBC % (auto) (0.0-0.2) /100WBC PT (10.0-13.1) SEC INR (0.9-1.1) Sodium (135-145) mmol/L Potassium (3.3-5.1) mmol/L Chloride (96-108) mmol/L Carbon Dioxide (22-29) mmol/L Anion Gap (12-20) BUN (9-16) mg/dL Creatinine (0.5-1.4) mg/dL Estim Creat Clear Calc Estimated GFR Random Glucose (60-115) mg/dL Calcium (8.4-10.2) mg/dL Magnesium (1.6-2.6) mg/dL Total Bilirubin (0.0-1.0) mg/dL Direct Bilirubin (0.0-0.5) mg/dL AST (5-31) U/L ALT (0-31) U/L Alkaline Phosphatase (39-117) U/L Troponin I High Sens 3.2 < 2.7 (<3.5-17.0) ng/L Total Protein (6.5-8.0) g/dL Albumin (3.5-5.0) g/dL Lipase (8-78) U/L Urine Color Yellow Urine Appearance Clear Urine pH 5.5 (5.0-9.0) Ur Specific Street >= 1.030 H (1.005-1.025) Urine Protein Negative (Neg-Trace) mg/dL Urine Glucose (UA) >=1000 H (Negative) mg/dL Urine Ketones Trace (Negative) mg/dL Urine Blood Negative (Negative) Urine Nitrite Negative (Negative) Ur Leukocyte Esterase Negative (Negative) Urine RBC 0-2 (0-2) /HPF Urine WBC 0-5 (0-5) /HPF Ur Squamous Epith Cells 0-2 (0-2) /HPF Urine Bacteria None Seen (None Seen) Hyaline Casts 0-2 (0-2) /LPF <Claudia Abel MD - Last Filed: 12/25/22 18:03> Independent Interpretation I performed an independent interpretation of an: EKG <Javi Madera MD - Last Filed: 12/25/22 16:09> Interpretation: AN EKG SHOWS SINUS RHYTHM A WITH LEFT BUNDLE-BRANCH BLOCK RATE IS ABOUT 109 NO OLD EKGS AVAILABLE ekg #2 13.58 nsr 97 IVCD <Javi Madera MD - Last Filed: 12/25/22 16:09> Discharge Plan Discharge Clinical Impression: Abdominal pain, Complete left bundle branch block <CYNTHIA Sullivan - Last Filed: 12/25/22 12:59> Patient Disposition: Home, Self-Care <CYNTHIA Sullivan - Last Filed: 12/25/22 12:59> Instructions: Abdominal Pain (ED) <CYNTHIA Sullivan - Last Filed: 12/25/22 12:59> Additional Instructions: 1. Reanudar los medicamentos en el hogar seg?n lo prescrito. 2. Contin?e haciendo un seguimiento con johnson proveedor de atenci?n primaria y cualquier otro consultor. Regrese a la mayank de emergencias si los s?ntomas empeoran. 1. Resume home medications as prescribed. 2. Please continue to follow-up with your primary care provider and any other consultants. Return to the ER for any worsening symptoms. <CYNTHIA Sullivan - Last Filed: 12/25/22 12:59> Prescriptions: No Action trazodone 150 mg tablet 150 mg PO BEDTIME Qty: 30 0RF temazepam 30 mg capsule 30 mg PO BEDTIME PRN (Reason: sleep) Qty: 10 0RF bupropion HCl 300 mg tablet extended release 24 hr 300 mg PO QAM Qty: 30 0RF quetiapine 200 mg tablet 200 mg PO DAILY Qty: 30 0RF amitriptyline 75 mg tablet 75 mg PO DAILY Qty: 30 0RF gabapentin 800 mg tablet 800 mg PO TID Qty: 30 0RF Humalog Mix 50-50 Insuln U-100 100 unit/mL (50-50) suspension 20 unit subcut TID Qty: 10 1RF lidocaine [Lidoderm] 5 % adhesive patch,medicated 1 patch topical DAILY MDD remove after 12 hours PRN (Reason: pain) Qty: 30 0RF Rx Instructions: leave on most painful area for up to 12 hrs <CYNTHIA Sullivan - Last Filed: 12/25/22 12:59> Print Language: Thai <CYNTHIA Sullivan - Last Filed: 12/25/22 12:59>
[2022-12-25 12:48] VITALS: BP 137/73; PULSE 112; RESP 18; TEMP 36.8; O2SAT 96; BMI 27.8
[2022-12-25 13:23] VITALS: BP 150/79; PULSE 107; RESP 18; TEMP 36.7; BMI 28.6
[2022-12-25 13:59] LABS: MANUAL DIFF FLAG NO
[2022-12-25 14:01] LABS: Basophils Percent Auto 0.1 % (0-2); Eosinophils Absolute Auto 0.1 X10*3/uL (0.0-0.4); Eosinophils Percent Auto 0.7 % (0-4); Hematocrit 45.9 % (37.0-47.0); Hemoglobin 15.7 g/dl (12.0-16.0); Imm Gran Abs Auto 0.03 X10*3/uL (0.00-0.03); Imm Gran Pct Auto 0.3 % (0.0-0.4); Lymphocytes Absolute Auto 1.5 X10*3/uL (1.2-4.9); Lymphocytes Percent Auto 14.1 % (20-40); Mean Corpuscular HGB Conc 34.2 g/dl (31.0-35.0); Mean Corpuscular Hemoglobin 30.2 pg (27.0-33.0); Mean Corpuscular Volume 88.3 fL (80.0-98.0); Mean Platelet Volume 10.2 fL (9.4-12.3); Monocytes Absolute Auto 0.4 X10*3/uL (0.1-1.2); Monocytes Percent Auto 3.9 % (2-11); Neutrophils Absolute Auto 8.9 x10*3/uL (2.0-8.3); Neutrophils Percent Auto 80.9 % (45-73); Platelet Count 280 X10*3/uL (160-400); Red Cell Distribution Width 12.4 % (11.0-16.0); White Blood Count 10.9 X10*3/uL (4.8-10.8)
[2022-12-25] MEDS: ondansetron HCL 4 MG/2 ML VIAL IVPUSH (14:03)
[2022-12-25] MEDS: Famotidine/PF 20 MG/2 ML VIAL IVPUSH (14:03)
[2022-12-25] MEDS: 0.9 % Sodium Chloride 1,000 ML 999 ML IVCONT (14:04)
[2022-12-25 14:06] LABS: INTERNATIONAL NORM RATIO 0.9 (0.9-1.1); Prothrombin Time 10.4 SEC (10.0-13.1)
[2022-12-25 14:11] LABS: Appearance Urine Clear; Color Urine Yellow; Glucose Urine UA >=1000 mg/dL (Negative); Leukocyte Esterase Urine Negative (Negative); Nitrite Urine Negative (Negative); PH 5.5 (5.0-9.0); Specific Gravity - Urine >= 1.030 (1.005-1.025); UMIC TRIGGER UACC YES; Urine Blood Negative (Negative); Urine Ketones Trace mg/dL (Negative); Urine Protein Negative (Neg-Trace)
[2022-12-25 14:14] LABS: Bacteria Urine None Seen (None Seen); Hyaline Casts Urine 0-2 /LPF (0-2); RBC Urine 0-2 /HPF (0-2); Squamous Epithelial Cell Urine 0-2 /HPF (0-2); WBC Urine 0-5 /HPF (0-5)
[2022-12-25 14:17] LABS: Alanine Aminotransferase 19 U/L (0-31); Albumin Level 4.3 g/dL (3.5-5.0); Alkaline Phosphatase 93 U/L (39-117); Anion Gap 17 (12-20); Aspartate Amino Transferase 14 U/L (5-31); Bilirubin Direct 0.1 mg/dL (0.0-0.5); Bilirubin Total 0.4 mg/dL (0.0-1.0); Blood Urea Nitrogen 14 mg/dL (9-16); Calcium 9.3 mg/dL (8.4-10.2); Carbon Dioxide 21 mmol/L (22-29); Chloride 100 mmol/L (96-108); Creatinine Clr Calc Pharmacy 107.8; Estimated Glomerular Filt Rate > 60; Glucose Random 244 mg/dL (60-115); Lipase 6 U/L (8-78); Magnesium 1.8 mg/dL (1.6-2.6); Potassium 3.9 mmol/L (3.3-5.1); Sodium 134 mmol/L (135-145); Total Protein 6.9 g/dL (6.5-8.0)
[2022-12-25 14:26] LABS: Troponin-I High Sensitivity 3.2 ng/L (<3.5-17.0)
[2022-12-25 15:13] VITALS: BP 140/69; RESP 15; TEMP 36.6; O2SAT 98
[2022-12-25] MEDS: iohexoL 350 MG/ML 100 ML INFUS..BTL IV (16:26)
--- NOTE | 2022-12-25 17:04 | PC.NURSE ---
Alert and oriented. Reports improvement in stomach pain and nausea.
[2022-12-25 17:25] LABS: Troponin-I High Sensitivity < 2.7 ng/L (<3.5-17.0)
--- NOTE | 2022-12-27 09:43 | ECG_ITS ---
Test Reason : CHEST PAIN Blood Pressure : / mmHG Vent. Rate : 097 BPM Atrial Rate : 097 BPM P-R Int : 182 ms QRS Dur : 108 ms QT Int : 366 ms P-R-T Axes : 059 -72 046 degrees QTc Int : 464 ms Normal sinus rhythm Possible Left atrial enlargement Left axis deviation Minimal voltage criteria for LVH, may be normal variant ( Hansel product ) Abnormal ECG When compared with ECG of 25-DEC-2022 12:40, Left bundle branch block is no longer Present Referred By: Claudia Abel Electronically Signed By:JASON MEEKS
== END 2022-12-25 18:17 | disposition home or self-care (01) ==
PROVIDERS: Emergency Medicine; Physician Assistant; Emergency Provider Student in an Organized Health Care Education/Training Program
DX: R10.13 Epigastric pain (principal); I44.7 Left bundle-branch block, unspecified; R11.2 Nausea with vomiting, unspecified; E11.9 Type 2 diabetes mellitus without complications; I10 Essential (primary) hypertension; E78.5 Hyperlipidemia, unspecified; Z79.4 Long term (current) use of insulin; Z79.899 Other long term (current) drug therapy
CPT/HCPCS: 36415; 71045; 74177; 80048; 80076; 81001; 83690; 83735; 84484; 85025; 85610; 93005; 96361; 96374; 96375; 99284; 99285; J2405; Q9967

== ENCOUNTER 2022-12-31 10:48 | Emergency (ER) | payer MEDICAID, SELFPAY ==
[2022-12-31 11:00] VITALS: BP 107/55; BP 132/90; PULSE 98; PULSE 99; RESP 16; TEMP 37; O2SAT 96; BMI 27.8
--- NOTE | 2022-12-31 11:08 | ED.ABDPAIN ---
HPI - Abdominal Pain General Chief Complaint: Abdominal Pain Stated Complaint: Abd pain per EMS Time Seen by Provider: 12/31/22 10:52 Source: patient and EMS Mode of arrival: EMS Limitations: no limitations History of Present Illness HPI narrative: 47 yo [place] speaking female with history of asthma, HTN, HLD, DM who presents to the ER via EMS from walk in clinic for evaluation of upper abdominal pain for the last several days along with decreased PO intake, nausea, vomiting and diarrhea. She states her doctor just started on Trulicity a week and a half ago and she thinks it is causing these side effects. Per EMS patient reportedly had orthostatic hypotension there. BP was 130/80s for EMS. Patient was seen here in the ER 6 days ago for abdominal pain - had CT scan showing ovarian cyst and labs were unremarkable. She states after discharge she was doing better until she gave herself her second dose of Trulicty this Tuesday. She then started having recurrent pain, nausea, vomiting. She states the last time she ate was yesterday. She does not know what her last glucose was. MD elicited complaint: abdominal pain Onset (ago): day(s) (4) Pain Consistency: constant Location: epigastric Severity: severe Quality: aching Radiation: none Migration to: no migration Exacerbating factors: eating and medication Relieving factors: nothing Context: history of similar episodes Associated symptoms: nausea, vomiting and diarrhea Related Data Previous Rx's Medication Instructions Recorded amitriptyline 75 mg tablet 75 mg PO DAILY #30 tabs 08/12/20 bupropion HCl 300 mg 24 hr tablet, 300 mg PO QAM #30 tabs 08/12/20 extended release gabapentin 800 mg tablet 800 mg PO TID #30 tabs 08/12/20 insulin lispro protamine-lispro 20 unit (0.2 mL) subcut TID #10 mL 08/12/20 100 unit/mL (50-50) subcutaneous susp (Humalog Mix 50-50 Insuln U-100) lidocaine 5 % topical patch 1 patch topical DAILY PRN pain #30 08/12/20 (Lidoderm) ea quetiapine 200 mg tablet 200 mg PO DAILY #30 tabs 08/12/20 temazepam 30 mg capsule 30 mg PO BEDTIME PRN sleep #10 caps 08/12/20 trazodone 150 mg tablet 150 mg PO BEDTIME #30 tabs 08/12/20 ondansetron 4 mg disintegrating 4 mg PO Q8H PRN nausea and 12/31/22 tablet vomiting #10 tabs Allergies Allergy/AdvReac Type Severity Reaction Status Date / Time Sulfa (Sulfonamide Allergy Unknown Verified 12/25/22 12:57 Antibiotics) Review of Systems Review of Systems Yes all other systems are reviewed and are negative REPLACED BY [facility] Past Medical History Medical History (Updated 12/31/22 @ 14:02 by CYNTHIA Fallon) Asthma Diabetes High cholesterol IDDM (insulin dependent diabetes mellitus) Surgical History H/O tubal ligation H/O: hysterectomy Social History Social History Alcohol intake: never Use of substances other than those prescribed or required for medical reasons: No Advance Directives: No Advance Directives Information Provided: No Physical Exam ED Vital Signs: Vital Signs - 24 hr 12/31/22 11:00 12/31/22 14:00 Temperature 98.6 F 99 F Pulse Rate 99 91 Respiratory Rate 16 16 Blood Pressure 107/55 L 122/71 Pulse Oximetry 96 97 Oxygen Delivery Method Room Air Room Air BMI result Body Mass Index 27.8 Appearance: Alert. Oriented X3. No acute distress. Head: normocephalic, atraumatic. Eyes: Pupils equal, round and reactive to light. ENT: Pharynx normal. No tonsillar swelling or exudate. Neck: Normal inspection. Neck supple. CVS: Normal heart rate and rhythm. Pulses normal. Respiratory: No respiratory distress. Breath sounds normal. Abdomen: Soft with mild epigastric abdominal tenderness, no rebound or guarding, negative Vivar's sign, normal active +BS x4 Skin: Skin warm and dry. Normal skin color. Normal skin turgor. No rashes. Extremities: No lower extremity edema. No joint swelling. Neuro/psych: Oriented X 3. No motor deficit. No sensory deficit. CN II-XII intact. Normal speech and cognition. Course Reevaluation(s) Reevaluation #1: Pain improved. Nausea improved. No vomiting while in the ER. She was given Zofran and GI cocktail with improvement in her symptoms. Her symptoms may be a adverse side effect from her Trulicity. She was advised to follow-up with her PCP before taking it again. She has adequate glucose control on Lantus and Humalog. At this time she is tolerating p.o. and is stable for discharge home. Time: 15:41 Medical Decision Making Medical Decision Making [facility] Narrative: 47 yo female with history of asthma, HTN, HLD, DM who presents to the ER via EMS from walk in clinic for evaluation of upper abdominal pain for the last several days along with decreased PO intake, nausea, vomiting and diarrhea. Abd with only epigastric tenderness, no RUQ tenderness. Symptoms started after recently starting Trulicity. Common reactions of this medication include nausea, vomiting, diarrhea, abdominal pain, pancreatitis. Repeat labs ordered. She recently had a CT scan of the abdomen, will hold off on repeat imaging for now. Patient had unremarkable labs, lipase was normal. She is tolerating p.o.. Pain and symptoms improved after GI cocktail and Zofran. Comfortable discharge home with outpatient follow-up. Differential Diagnosis Differential Diagnoses: The differential diagnosis associated with the presentation includes Adverse medication reaction, gastroenteritis, gastroparesis, gastritis, GERD Admission/Observation Consideration of admission/observation: Escalation of care including admission/observation considered Second presentation to the ER for abdominal pain, nausea, vomiting Lab Data [facility] Lab Attestation statement: I reviewed the patient's lab results. 12/31/22 12:37 12/31/22 12:37 Labs: Lab Results 12/31/22 12/31/22 12/31/22 Range/Units 12:37 13:51 14:11 WBC 6.0 (4.8-10.8) X10*3/uL RBC 5.45 (4.20-5.50) X10*6/uL Hgb 16.5 H (12.0-16.0) g/dl Hct 48.7 H (37.0-47.0) % MCV 89.4 (80.0-98.0) fL MCH 30.3 (27.0-33.0) pg MCHC 33.9 (31.0-35.0) g/dl RDW 12.6 (11.0-16.0) % Plt Count 280 (160-400) X10*3/uL MPV 10.2 (9.4-12.3) fL Immature Gran % (Auto) 0.2 (0.0-0.4) % Neut % (Auto) 53.5 (45-73) % Lymph % (Auto) 35.9 (20-40) % Dolores % (Auto) 7.7 (2-11) % Eos % (Auto) 2.7 (0-4) % Baso % (Auto) 0.0 (0-2) % Lymph # (Auto) 2.2 (1.2-4.9) X10*3/uL Dolores # (Auto) 0.5 (0.1-1.2) X10*3/uL Eos # (Auto) 0.2 (0.0-0.4) X10*3/uL Baso # (Auto) 0.0 (0.0-0.2) X10*3/uL Abs Immat Gran (auto) 0.01 (0.00-0.03) X10*3/uL Absolute Neuts (auto) 3.2 (2.0-8.3) x10*3/uL Absolute Nucleated RBC 0.000 (0.0-0.012) X10*3/uL Nucleated RBC % (auto) 0.0 (0.0-0.2) /100WBC Sodium 137 (135-145) mmol/L Potassium 3.5 (3.3-5.1) mmol/L Chloride 106 (96-108) mmol/L Carbon Dioxide 27 (22-29) mmol/L Anion Gap 8 L (12-20) BUN 12 (9-16) mg/dL Creatinine 0.58 (0.5-1.4) mg/dL Estim Creat Clear Calc 126.4 Estimated GFR > 60 Random Glucose 182 H (60-115) mg/dL Calcium 8.3 L D (8.4-10.2) mg/dL Magnesium 1.8 (1.6-2.6) mg/dL Total Bilirubin 0.3 (0.0-1.0) mg/dL Direct Bilirubin 0.1 (0.0-0.5) mg/dL AST 8 (5-31) U/L ALT 17 (0-31) U/L Alkaline Phosphatase 97 (39-117) U/L Total Protein 5.6 L (6.5-8.0) g/dL Albumin 3.5 (3.5-5.0) g/dL Lipase 5 L (8-78) U/L Urine Color Yellow Urine Appearance Clear Urine pH 5.5 (5.0-9.0) Ur Specific [place] 1.015 (1.005-1.025) Urine Protein Negative (Neg-Trace) mg/dL Urine Glucose (UA) 100 H (Negative) mg/dL Urine Ketones Negative (Negative) mg/dL Urine Blood Negative (Negative) Urine Nitrite Negative (Negative) Ur Leukocyte Esterase Negative (Negative) Radiology Impression Discussion of test interpretation with radiology: I have reviewed the radiologist's reading. Radiologist Impression: CT/CT abdomen pelvis w IV con IMPRESSION: ? No acute finding. ? Approximately 5.4 x 4.5 x 3.8 cm, smooth, ovoid left adnexal structure containing an approximately 1 cm peripheral calcification. Recommend pelvic ultrasound performed on a nonemergent basis for further characterization. External Record Review External record reviewed: Office record, Outpatient record, Prior outpatient labs and Prior outpatient radiology Prescription Management I considered prescription management with: Other (Antiemetic) Chronic Conditions Patient?s care impacted by: Diabetes Medications Administered Discontinued Medications Generic Name Dose Route Start Last Admin Trade Name Freq PRN Reason Stop Dose Admin Al Hydroxide/Mg Hydroxide 30 ml 12/31/22 11:30 12/31/22 12:05 Magnesium Hydrox/Alum Hydrox 30 Ml Oral.Susp PO 12/31/22 11:31 30 ml ONCE ONE Administration Belladonna Alkaloids/Phenobarbital 10 ml 12/31/22 11:30 12/31/22 12:06 Phenobarb/Hyoscy/Atropine/Scop 10 Ml Elixir PO 12/31/22 11:31 10 ml ONCE ONE Administration Famotidine 20 mg 12/31/22 11:30 12/31/22 12:04 Famotidine 20 Mg Tablet PO 12/31/22 11:31 20 mg ONCE ONE Administration Sodium Chloride 1,000 mls @ 999 mls/hr 12/31/22 11:00 12/31/22 12:50 Ns IVCONT 12/31/22 12:00 Infused .Q1H1M RUKHSANA Infusion Lidocaine HCl 15 ml 12/31/22 11:30 12/31/22 12:05 Lidocaine Hcl Viscous 2 % 15 Ml Solution MUCOUS MEM 12/31/22 11:31 15 ml ONCE ONE Administration Morphine Sulfate 4 mg 12/31/22 11:30 12/31/22 12:49 Morphine Sulfate 4 Mg/Ml Cartridge IVPUSH 12/31/22 11:31 4 mg ONCE ONE Administration Protocol Ondansetron HCl 4 mg 12/31/22 11:30 12/31/22 12:48 Ondansetron Hcl 4 Mg/2 Ml Vial IVPUSH 12/31/22 11:31 4 mg ONCE ONE Administration Critical Care Time Critical Care Time Critical Care Time: No Discharge Plan Discharge Clinical Impression: Abdominal pain Patient Disposition: Home, Self-Care Instructions: Abdominal Pain (ED) Additional Instructions: Your lab workup today was unremarkable. Your symptoms are most likely due to a Stephen reaction from your Trulicity, these are common side effects of this medication. Recommend following up with her primary care doctor discuss other options for treatment of your diabetes. Take the prescribed medication as needed for nausea. Prescriptions: New ondansetron 4 mg tablet,disintegrating 4 mg PO Q8H PRN (Reason: nausea and vomiting) Qty: 10 0RF No Action trazodone 150 mg tablet 150 mg PO BEDTIME Qty: 30 0RF temazepam 30 mg capsule 30 mg PO BEDTIME PRN (Reason: sleep) Qty: 10 0RF bupropion HCl 300 mg tablet extended release 24 hr 300 mg PO QAM Qty: 30 0RF quetiapine 200 mg tablet 200 mg PO DAILY Qty: 30 0RF amitriptyline 75 mg tablet 75 mg PO DAILY Qty: 30 0RF gabapentin 800 mg tablet 800 mg PO TID Qty: 30 0RF Humalog Mix 50-50 Insuln U-100 100 unit/mL (50-50) suspension 20 unit subcut TID Qty: 10 1RF lidocaine [Lidoderm] 5 % adhesive patch,medicated 1 patch topical DAILY MDD remove after 12 hours PRN (Reason: pain) Qty: 30 0RF Rx Instructions: leave on most painful area for up to 12 hrs Referrals: [place],[facility] [Other] Print Language: [place]se
[2022-12-31] MEDS: 0.9 % Sodium Chloride 1,000 ML 999 ML IVCONT (11:26)
[2022-12-31] MEDS: Famotidine 20 MG TABLET PO (12:04)
[2022-12-31] MEDS: Lidocaine HCl Viscous 2 % 15 ML SOLUTION MUCOUS MEM (12:05)
[2022-12-31] MEDS: Magnesium Hydrox/Alum Hydrox 30 ML ORAL.SUSP PO (12:05)
[2022-12-31] MEDS: PHENobarb/Hyoscy/Atropine/Scop 10 ML ELIXIR PO (12:06)
[2022-12-31 12:44] LABS: MANUAL DIFF FLAG NO
[2022-12-31 12:48] LABS: Eosinophils Absolute Auto 0.2 X10*3/uL (0.0-0.4); Eosinophils Percent Auto 2.7 % (0-4); Hematocrit 48.7 % (37.0-47.0); Hemoglobin 16.5 g/dl (12.0-16.0); Imm Gran Abs Auto 0.01 X10*3/uL (0.00-0.03); Imm Gran Pct Auto 0.2 % (0.0-0.4); Lymphocytes Absolute Auto 2.2 X10*3/uL (1.2-4.9); Lymphocytes Percent Auto 35.9 % (20-40); Mean Corpuscular HGB Conc 33.9 g/dl (31.0-35.0); Mean Corpuscular Hemoglobin 30.3 pg (27.0-33.0); Mean Corpuscular Volume 89.4 fL (80.0-98.0); Mean Platelet Volume 10.2 fL (9.4-12.3); Monocytes Absolute Auto 0.5 X10*3/uL (0.1-1.2); Monocytes Percent Auto 7.7 % (2-11); Neutrophils Absolute Auto 3.2 x10*3/uL (2.0-8.3); Neutrophils Percent Auto 53.5 % (45-73); Platelet Count 280 X10*3/uL (160-400); Red Blood Count 5.45 X10*6/uL (4.20-5.50); Red Cell Distribution Width 12.6 % (11.0-16.0)
[2022-12-31] MEDS: ondansetron HCL 4 MG/2 ML VIAL IVPUSH (12:48)
[2022-12-31] MEDS: Morphine Sulfate 4 MG/ML CARTRIDGE IVPUSH (12:49)
[2022-12-31 14:00] VITALS: BP 122/71; PULSE 91; RESP 16; TEMP 37.2; O2SAT 97
[2022-12-31 14:20] LABS: Alanine Aminotransferase 17 U/L (0-31); Albumin Level 3.5 g/dL (3.5-5.0); Alkaline Phosphatase 97 U/L (39-117); Anion Gap 8 (12-20); Aspartate Amino Transferase 8 U/L (5-31); Bilirubin Direct 0.1 mg/dL (0.0-0.5); Bilirubin Total 0.3 mg/dL (0.0-1.0); Blood Urea Nitrogen 12 mg/dL (9-16); Calcium 8.3 mg/dL (8.4-10.2); Carbon Dioxide 27 mmol/L (22-29); Chloride 106 mmol/L (96-108); Creatinine Clr Calc Pharmacy 126.4; Estimated Glomerular Filt Rate > 60; Glucose Random 182 mg/dL (60-115); Lipase 5 U/L (8-78); Magnesium 1.8 mg/dL (1.6-2.6); Potassium 3.5 mmol/L (3.3-5.1); Sodium 137 mmol/L (135-145); Total Protein 5.6 g/dL (6.5-8.0)
[2022-12-31 14:30] LABS: Appearance Urine Clear; Color Urine Yellow; Glucose Urine UA 100 mg/dL (Negative); Leukocyte Esterase Urine Negative (Negative); Nitrite Urine Negative (Negative); PH 5.5 (5.0-9.0); Specific Gravity - Urine 1.015 (1.005-1.025); Urine Blood Negative (Negative); Urine Ketones Negative (Negative); Urine Protein Negative (Neg-Trace)
--- NOTE | 2022-12-31 15:04 | PC.NURSE ---
PO trialing per Sridevi MARIE
== END 2022-12-31 16:10 | disposition home or self-care (01) ==
PROVIDERS: Physician Assistant; Emergency Provider Emergency Medicine
DX: R10.10 Upper abdominal pain, unspecified (principal); E11.9 Type 2 diabetes mellitus without complications; E78.5 Hyperlipidemia, unspecified; Z79.899 Other long term (current) drug therapy; Z79.4 Long term (current) use of insulin
CPT/HCPCS: 36415; 80048; 80076; 81003; 83690; 83735; 85025; 96361; 96374; 96375; 99284; J2270; J2405

== ENCOUNTER 2023-01-04 14:03 | Emergency (ER) | payer MEDICAID, SELFPAY ==
--- NOTE | ~2023-01-04 | CT_ITS ---
EXAMINATION: CT ABDOMEN AND PELVIS WITH CONTRAST CLINICAL INFORMATION: Abdominal pain COMPARISON: Previous CT most recent 12/25/2022 TECHNIQUE: Multidetector volumetric images were obtained from the superior aspect of the liver through the pubic symphysis following administration 85 mL of Omnipaque 350 intravenous contrast. Sagittal and coronal reformatted images were obtained on the technologist's workstation. Oral contrast: Yes This CT examination was performed using dose optimization techniques as appropriate, variously including the following: *Automated exposure control *Adjustment of mA and/or kV according to patient size (this includes techniques or standardized protocols for targeted exams where dose is matched to indication/reason for exam; i.e. extremities or head) *Use of iterative reconstruction technique DLP: 537 mGy-cm FINDINGS: LUNG BASES: Cysts in the right lower lobe largest measuring 1.8 cm. LIVER, GALLBLADDER, AND BILIARY TREE: The liver is normal in size, shape, and attenuation. No focal hepatic lesion or biliary ductal dilatation is present. The gallbladder is unremarkable with no evidence of radiopaque gallstones, gallbladder wall thickening, or obvious pericholecystic inflammatory changes. PANCREAS: Unremarkable. SPLEEN: Unremarkable. ADRENAL GLANDS: Unremarkable. KIDNEYS AND URETERS: The kidneys are normal in size, shape, and attenuation. No hydronephrosis, hydroureter, or calculi seen. No perinephric stranding. BLADDER: Unremarkable. GASTROINTESTINAL TRACT: There is stool in the distal colon suggestive of constipation. The more proximal colon appears slightly distended and fluid-filled questionable mild obstipation. Small and large bowel is otherwise unremarkable. The appendix is unremarkable. ABDOMINAL WALL: No significant hernia is appreciated. LYMPH NODES: Normal. VASCULAR: Unremarkable. PELVIC VISCERA: There is interval decrease in size in the left adnexal cyst now measuring 1.8 cm. 1 cm peripheral calcification appears unchanged. The uterus has been removed. Right adnexa is unremarkable.. OSSEOUS STRUCTURES: Unremarkable. CT/CT abdomen pelvis w IV con IMPRESSION: Constipation and question mild secondary obstipation. Interval decrease in size in the left adnexal cyst now measuring approximately 1.8 cm. Left adnexal calcification unchanged. Fleischner guidelines were followed.
[2023-01-04 14:08] VITALS: BP 128/72; PULSE 91; RESP 16; TEMP 37.4; O2SAT 95; BMI 27.4
[2023-01-04 14:14] LABS: Glucose, Whole Blood 262 mg/dL (60-115)
[2023-01-04] MEDS: Lidocaine HCl Viscous 2 % 15 ML SOLUTION PO (14:49)
[2023-01-04] MEDS: Famotidine 20 MG TABLET PO (14:49)
[2023-01-04] MEDS: Magnesium Hydrox/Alum Hydrox 30 ML ORAL.SUSP PO (14:49)
[2023-01-04] MEDS: PHENobarb/Hyoscy/Atropine/Scop 10 ML ELIXIR PO (14:49)
[2023-01-04] MEDS: 0.9 % Sodium Chloride 1,000 ML 999 ML IV (14:51)
[2023-01-04 14:55] LABS: MANUAL DIFF FLAG NO
[2023-01-04 15:01] LABS: Basophils Percent Auto 0.3 % (0-2); Eosinophils Absolute Auto 0.6 X10*3/uL (0.0-0.4); Eosinophils Percent Auto 5.7 % (0-4); Hematocrit 44.1 % (37.0-47.0); Hemoglobin 15.1 g/dl (12.0-16.0); Imm Gran Abs Auto 0.08 X10*3/uL (0.00-0.03); Imm Gran Pct Auto 0.8 % (0.0-0.4); Lymphocytes Absolute Auto 2.7 X10*3/uL (1.2-4.9); Lymphocytes Percent Auto 27.2 % (20-40); Mean Corpuscular HGB Conc 34.2 g/dl (31.0-35.0); Mean Corpuscular Hemoglobin 30.6 pg (27.0-33.0); Mean Corpuscular Volume 89.3 fL (80.0-98.0); Mean Platelet Volume 10.1 fL (9.4-12.3); Monocytes Absolute Auto 0.5 X10*3/uL (0.1-1.2); Monocytes Percent Auto 5.1 % (2-11); Neutrophils Absolute Auto 6.1 x10*3/uL (2.0-8.3); Neutrophils Percent Auto 60.9 % (45-73); Platelet Count 293 X10*3/uL (160-400); Red Blood Count 4.94 X10*6/uL (4.20-5.50); Red Cell Distribution Width 12.3 % (11.0-16.0)
[2023-01-04] MEDS: ondansetron HCL 4 MG/2 ML VIAL IVPUSH (15:01)
[2023-01-04] MEDS: Morphine Sulfate 4 MG/ML CARTRIDGE IVPUSH (15:01)
[2023-01-04 15:09] LABS: Lactic Acid 0.9 mmol/L (0.5-2.0)
[2023-01-04 15:12] LABS: Alanine Aminotransferase 18 U/L (0-31); Albumin Level 4.1 g/dL (3.5-5.0); Alkaline Phosphatase 131 U/L (39-117); Anion Gap 13 (12-20); Aspartate Amino Transferase 11 U/L (5-31); Bilirubin Total 0.2 mg/dL (0.0-1.0); Blood Urea Nitrogen 10 mg/dL (9-16); Calcium 8.9 mg/dL (8.4-10.2); Carbon Dioxide 25 mmol/L (22-29); Chloride 99 mmol/L (96-108); Creatinine Clr Calc Pharmacy 105.7; Estimated Glomerular Filt Rate > 60; Glucose Random 260 mg/dL (60-115); Potassium 3.8 mmol/L (3.3-5.1); Sodium 133 mmol/L (135-145); Total Protein 6.5 g/dL (6.5-8.0)
--- NOTE | 2023-01-04 15:14 | ED.GENADULT ---
HPI - General Adult General Chief complaint: General Medical Stated complaint: ABD PAIN Time Seen by Provider: 01/04/23 14:12 Source: patient History of Present Illness HPI narrative: Patient is complaining of abdominal pain intermittently for the past 3 weeks. She initially attributed it to Trulicity which she just started the day prior to the onset of symptoms. She was seen in the emergency department and had a CT scan and other workup which were nondiagnostic. She was treated symptomatically and felt better. Symptoms came back after 2nd dose of Trulicity and she was again seen in the emergency department, treated symptomatically and improved. Symptoms started up again 2 days ago but she has not had a 3rd dose of Trulicity. She complains of diffuse abdominal pain with occasional bloating. Multiple episodes of watery diarrhea. Multiple episodes of vomiting with inability to adequately take p.o. fluids or eat. She has been taking insulin to control her blood sugars. She states they have been moderately elevated but typically under 300. No urinary symptoms. No fevers or chills. No other known alleviating or exacerbating factors. She does not have a spring former. Related Data Previous Rx's Medication Instructions Recorded amitriptyline 75 mg tablet 75 mg PO DAILY #30 tabs 08/12/20 bupropion HCl 300 mg 24 hr tablet, 300 mg PO QAM #30 tabs 08/12/20 extended release gabapentin 800 mg tablet 800 mg PO TID #30 tabs 08/12/20 insulin lispro protamine-lispro 20 unit (0.2 mL) subcut TID #10 mL 08/12/20 100 unit/mL (50-50) subcutaneous susp (Humalog Mix 50-50 Insuln U-100) lidocaine 5 % topical patch 1 patch topical DAILY PRN pain #30 08/12/20 (Lidoderm) ea quetiapine 200 mg tablet 200 mg PO DAILY #30 tabs 08/12/20 temazepam 30 mg capsule 30 mg PO BEDTIME PRN sleep #10 caps 08/12/20 trazodone 150 mg tablet 150 mg PO BEDTIME #30 tabs 08/12/20 ondansetron 4 mg disintegrating 4 mg PO Q8H PRN nausea and 12/31/22 tablet vomiting #10 tabs magnesium citrate 300 ml PO DAILY PRN constipation 01/04/23 #296 mL ondansetron 4 mg disintegrating 4 mg PO Q8H PRN nausea and 01/04/23 tablet vomiting 24 hours #14 tabs Allergies Allergy/AdvReac Type Severity Reaction Status Date / Time Sulfa (Sulfonamide Allergy Unknown Verified 12/25/22 12:57 Antibiotics) Review of Systems Constitutional: Comments: No fevers or chills. Positive malaise Cardiovascular: Comments: No chest pain Respiratory: Comments: No dyspnea. No cough Gastrointestinal: Gastrointestinal: Reports as per HPI Genitourinary: Comments: No urinary symptoms Musculoskeletal: Comments: No musculoskeletal complaint Integumentary/Breasts: Comments: No rash Neurologic: Comments: No focal weakness Endocrine: Comments: Diabetes [facility] Past Medical History Medical History (Updated 01/04/23 @ 17:55 by Tru Kennedy MD) Asthma Diabetes High cholesterol IDDM (insulin dependent diabetes mellitus) Surgical History H/O tubal ligation H/O: hysterectomy Social History Social History Alcohol intake: never Advance Directives: No Advance Directives Information Provided: Yes Physical Exam ED Vital Signs: Vital Signs - 24 hr 01/04/23 14:08 01/04/23 16:57 Temperature 99.3 F 98.8 F Pulse Rate 91 83 Respiratory Rate 16 16 Blood Pressure 128/72 136/65 Pulse Oximetry 95 96 Oxygen Delivery Method Room Air Room Air BMI result Body Mass Index 27.4 Const Other: Awake and alert. No acute distress. Resp Other: Clear and equal bilaterally without wheezes rales or rhonchi Cardio Other: Regular rate and rhythm without murmurs rubs or gallops GI Other: Soft. Mild lower abdominal tenderness this without guarding or rebound. No significant distention. Skin Other: Warm pink and dry without rash Extrem Other: No calf tenderness or pedal edema Medications Administered Discontinued Medications Generic Name Dose Route Start Last Admin Trade Name Freq PRN Reason Stop Dose Admin Al Hydroxide/Mg Hydroxide 30 ml 01/04/23 14:26 01/04/23 14:49 Magnesium Hydrox/Alum Hydrox 30 Ml Oral.Susp PO 01/04/23 14:27 30 ml ONCE ONE Administration Belladonna Alkaloids/Phenobarbital 10 ml 01/04/23 14:26 01/04/23 14:49 Phenobarb/Hyoscy/Atropine/Scop 10 Ml Elixir PO 01/04/23 14:27 10 ml ONCE ONE Administration Famotidine 20 mg 01/04/23 14:26 01/04/23 14:49 Famotidine 20 Mg Tablet PO 01/04/23 14:27 20 mg ONCE ONE Administration Sodium Chloride 1,000 mls @ 999 mls/hr 01/04/23 14:30 01/04/23 16:01 Ns IV 01/04/23 15:30 Infused .Q1H1M RUKHSANA Infusion Iohexol 100 ml 01/04/23 15:44 01/04/23 15:45 Iohexol 350 Mg/Ml 100 Ml Infus..Btl IV 01/04/23 15:45 85 ml ONCE ONE Administration Lidocaine HCl 15 ml 01/04/23 14:26 01/04/23 14:49 Lidocaine Hcl Viscous 2 % 15 Ml Solution PO 01/04/23 14:27 15 ml ONCE ONE Administration Morphine Sulfate 4 mg 01/04/23 14:26 01/04/23 15:01 Morphine Sulfate 4 Mg/Ml Cartridge IVPUSH 01/04/23 14:27 4 mg ONCE ONE Administration Protocol Ondansetron HCl 4 mg 01/04/23 14:26 01/04/23 15:01 Ondansetron Hcl 4 Mg/2 Ml Vial IVPUSH 01/04/23 14:27 4 mg ONCE ONE Administration Medical Decision Making Medical Decision Making MDM Narrative: Patient clinically dehydrated with recent GI syndrome. Unclear if related to medications as she is not taking the Trulicity in over weak at this point. He can certainly be a superimposed gastroenteritis or inflammatory bowel disease. Given severity of symptoms, will order CT scan to rule out potential infectious cause. In the meantime will treat with IV fluids and anti emetics. Will also order GI cocktail and antacid medication. 17:02. CBC is normal with a normal white count. Chemistries show glucose of 260 without acidosis. Normal creatinine. Electrolytes overall normal with mild pseudo hyponatremia. CT scan shows some constipation but no other significant abnormalities. 17:53. Urinalysis is normal. Patient is feeling better. Given the findings of constipation and possible obstipation, will treat with magnesium citrate. Antiemetics. Follow-up with PCP and Gastroenterology. Lab Data 01/04/23 14:49 01/04/23 14:49 Labs: Lab Results 01/04/23 01/04/23 01/04/23 Range/Units 14:10 14:49 14:49 WBC 10.0 (4.8-10.8) X10*3/uL RBC 4.94 (4.20-5.50) X10*6/uL Hgb 15.1 (12.0-16.0) g/dl Hct 44.1 (37.0-47.0) % MCV 89.3 (80.0-98.0) fL MCH 30.6 (27.0-33.0) pg MCHC 34.2 (31.0-35.0) g/dl RDW 12.3 (11.0-16.0) % Plt Count 293 (160-400) X10*3/uL MPV 10.1 (9.4-12.3) fL Immature Gran % (Auto) 0.8 H (0.0-0.4) % Neut % (Auto) 60.9 (45-73) % Lymph % (Auto) 27.2 (20-40) % [place] % (Auto) 5.1 (2-11) % Eos % (Auto) 5.7 H (0-4) % Baso % (Auto) 0.3 (0-2) % Lymph # (Auto) 2.7 (1.2-4.9) X10*3/uL [place] # (Auto) 0.5 (0.1-1.2) X10*3/uL Eos # (Auto) 0.6 H (0.0-0.4) X10*3/uL Baso # (Auto) 0.0 (0.0-0.2) X10*3/uL Abs Immat Gran (auto) 0.08 H (0.00-0.03) X10*3/uL Absolute Neuts (auto) 6.1 (2.0-8.3) x10*3/uL Absolute Nucleated RBC 0.000 (0.0-0.012) X10*3/uL Nucleated RBC % (auto) 0.0 (0.0-0.2) /100WBC Sodium 133 L (135-145) mmol/L Potassium 3.8 (3.3-5.1) mmol/L Chloride 99 (96-108) mmol/L Carbon Dioxide 25 (22-29) mmol/L Anion Gap 13 (12-20) BUN 10 (9-16) mg/dL Creatinine 0.69 (0.5-1.4) mg/dL Estim Creat Clear Calc 105.7 Estimated GFR > 60 POC Glucose 262 H (60-115) mg/dL Random Glucose 260 H (60-115) mg/dL Lactic Acid (0.5-2.0) mmol/L Calcium 8.9 D (8.4-10.2) mg/dL Total Bilirubin 0.2 (0.0-1.0) mg/dL AST 11 (5-31) U/L ALT 18 (0-31) U/L Alkaline Phosphatase 131 H (39-117) U/L Total Protein 6.5 (6.5-8.0) g/dL Albumin 4.1 (3.5-5.0) g/dL Urine Color Urine Appearance Urine pH (5.0-9.0) Ur Specific [place] (1.005-1.025) Urine Protein (Neg-Trace) mg/dL Urine Glucose (UA) (Negative) mg/dL Urine Ketones (Negative) mg/dL Urine Blood (Negative) Urine Nitrite (Negative) Ur Leukocyte Esterase (Negative) 01/04/23 01/04/23 Range/Units 14:49 17:18 WBC (4.8-10.8) X10*3/uL RBC (4.20-5.50) X10*6/uL Hgb (12.0-16.0) g/dl Hct (37.0-47.0) % MCV (80.0-98.0) fL MCH (27.0-33.0) pg MCHC (31.0-35.0) g/dl RDW (11.0-16.0) % Plt Count (160-400) X10*3/uL MPV (9.4-12.3) fL Immature Gran % (Auto) (0.0-0.4) % Neut % (Auto) (45-73) % Lymph % (Auto) (20-40) % [place] % (Auto) (2-11) % Eos % (Auto) (0-4) % Baso % (Auto) (0-2) % Lymph # (Auto) (1.2-4.9) X10*3/uL [place] # (Auto) (0.1-1.2) X10*3/uL Eos # (Auto) (0.0-0.4) X10*3/uL Baso # (Auto) (0.0-0.2) X10*3/uL Abs Immat Gran (auto) (0.00-0.03) X10*3/uL Absolute Neuts (auto) (2.0-8.3) x10*3/uL Absolute Nucleated RBC (0.0-0.012) X10*3/uL Nucleated RBC % (auto) (0.0-0.2) /100WBC Sodium (135-145) mmol/L Potassium (3.3-5.1) mmol/L Chloride (96-108) mmol/L Carbon Dioxide (22-29) mmol/L Anion Gap (12-20) BUN (9-16) mg/dL Creatinine (0.5-1.4) mg/dL Estim Creat Clear Calc Estimated GFR POC Glucose (60-115) mg/dL Random Glucose (60-115) mg/dL Lactic Acid 0.9 (0.5-2.0) mmol/L Calcium (8.4-10.2) mg/dL Total Bilirubin (0.0-1.0) mg/dL AST (5-31) U/L ALT (0-31) U/L Alkaline Phosphatase (39-117) U/L Total Protein (6.5-8.0) g/dL Albumin (3.5-5.0) g/dL Urine Color Yellow Urine Appearance Clear Urine pH 5.0 (5.0-9.0) Ur Specific [place] >= 1.030 H (1.005-1.025) Urine Protein Negative (Neg-Trace) mg/dL Urine Glucose (UA) 100 H (Negative) mg/dL Urine Ketones Negative (Negative) mg/dL Urine Blood Negative (Negative) Urine Nitrite Negative (Negative) Ur Leukocyte Esterase Negative (Negative) Discharge Plan Discharge Clinical Impression: Abdominal pain, Constipation Instructions: Constipation (ED), Abdominal Pain (ED) Additional Instructions: Take medication as directed. Follow-up with Gastroenterology Prescriptions: New magnesium citrate Solution 300 ml PO DAILY PRN (Reason: constipation) Qty: 296 0RF ondansetron 4 mg tablet,disintegrating 4 mg PO Q8H PRN (Reason: nausea and vomiting) 1 Days Qty: 14 0RF No Action trazodone 150 mg tablet 150 mg PO BEDTIME Qty: 30 0RF temazepam 30 mg capsule 30 mg PO BEDTIME PRN (Reason: sleep) Qty: 10 0RF bupropion HCl 300 mg tablet extended release 24 hr 300 mg PO QAM Qty: 30 0RF quetiapine 200 mg tablet 200 mg PO DAILY Qty: 30 0RF amitriptyline 75 mg tablet 75 mg PO DAILY Qty: 30 0RF gabapentin 800 mg tablet 800 mg PO TID Qty: 30 0RF Humalog Mix 50-50 Insuln U-100 100 unit/mL (50-50) suspension 20 unit subcut TID Qty: 10 1RF lidocaine [Lidoderm] 5 % adhesive patch,medicated 1 patch topical DAILY MDD remove after 12 hours PRN (Reason: pain) Qty: 30 0RF Rx Instructions: leave on most painful area for up to 12 hrs ondansetron 4 mg tablet,disintegrating 4 mg PO Q8H PRN (Reason: nausea and vomiting) Qty: 10 0RF Referrals: Mary Schneider MD [Physician] -
[2023-01-04] MEDS: iohexoL 350 MG/ML 100 ML INFUS..BTL IV (15:45)
[2023-01-04 16:57] VITALS: BP 136/65; PULSE 83; RESP 16; TEMP 37.1; O2SAT 96
[2023-01-04 17:32] LABS: Appearance Urine Clear; Color Urine Yellow; Glucose Urine UA 100 mg/dL (Negative); Leukocyte Esterase Urine Negative (Negative); Nitrite Urine Negative (Negative); Specific Gravity - Urine >= 1.030 (1.005-1.025); Urine Blood Negative (Negative); Urine Ketones Negative (Negative); Urine Protein Negative (Neg-Trace)
== END 2023-01-04 18:10 | disposition home or self-care (01) ==
LOC: HO.ED 14:45
PROVIDERS: Emergency Provider Emergency Medicine; PCP Internal Medicine
DX: R10.9 Unspecified abdominal pain (principal); K59.00 Constipation, unspecified; E11.9 Type 2 diabetes mellitus without complications; E78.5 Hyperlipidemia, unspecified; Z79.4 Long term (current) use of insulin; Z79.899 Other long term (current) drug therapy
CPT/HCPCS: 36415; 74177; 80053; 81003; 82947; 83605; 85025; 96361; 96374; 96375; 99284; J2270; J2405; Q9967

== ENCOUNTER → 2023-02-16 08:28 | Outpatient (BNVA) | payer MEDICAID, SELFPAY | PROVIDERS: PCP Internal Medicine; Visit Provider Physician Assistant | DX: Z12.11 Encounter for screening for malignant neoplasm of colon (principal); R13.10 Dysphagia, unspecified; R14.0 Abdominal distension (gaseous) | CPT/HCPCS: 99202 ==

== ENCOUNTER 2023-04-27 12:40 | Day surgery (SDC) | payer MEDICAID, SELFPAY ==
--- NOTE | 2023-04-26 10:24 | HO.ANESPROP2 ---
Documented by User: Livia Duron NP 04/26/23 10:27 HPI - Anesthesia Eval Consult details Narrative: 47yo F for Upper Endoscopy and Colonoscopy PMFSH Active Problems Active Problems: All Active Problems (Updated 04/26/23 @ 08:24 by Saranya Koenig RN) Dysphagia (Acute) Encounter for screening colonoscopy (Acute) Bloating (Acute) Fibromyalgia (Acute) Chronic pain (Acute) Diabetes (Acute) Past Medical History Medical History (Updated 04/26/23 @ 08:24 by Saranya Koenig RN) Asthma Chest pain Diabetes High cholesterol IDDM (insulin dependent diabetes mellitus) Surgical History Surgical History H/O tubal ligation H/O: hysterectomy Social History Social History (Updated 02/16/23 @ 09:09 by Leti Mccauley PA-C) Household Members: Family Alcohol intake: never Patient Tobacco Use Status: Former Tobacco user Tobacco use type: Smokeless Tobacco Advance Directives: No Advance Directives Information Provided: Yes Meds Allergies Allergy/AdvReac Type Severity Reaction Status Date / Time Sulfa (Sulfonamide Allergy Unknown Verified 02/16/23 08:40 Antibiotics) Home Medications Medication Instructions Recorded Confirmed Last Taken Type clonazepam 2 mg tablet 2 mg PO TID 02/16/23 Unknown History losartan 50 mg-hydrochlorothiazide 1 tab PO DAILY 02/16/23 Unknown History 12.5 mg tablet Exam Exam Date and Time: April 26, 2023 1024 Pertinent Lab Results Pertinent Lab Results: Laboratory Tests 01/04/23 01/04/23 14:49 14:49 WBC 10.0 Hgb 15.1 Hct 44.1 Plt Count 293 Sodium 133 L Potassium 3.8 Chloride 99 Carbon Dioxide 25 BUN 10 Creatinine 0.69 Narrative Narrative: EKG 12/2022 Vent. Rate : 097 BPM ? ? Atrial Rate : 097 BPM ?? P-R Int : 182 ms? QRS Dur : 108 ms ? ? QT Int : 366 ms ? ? ? P-R-T Axes : 059 -72 046 degrees ?? QTc Int : 464 ms ? Normal sinus rhythm Possible Left atrial enlargement Left axis deviation Minimal voltage criteria for LVH, may be normal variant ( Hansel product ) Abnormal ECG When compared with ECG of 25-DEC-2022 12:40, Left bundle branch block is no longer Present Assessment and Plan Assessment Anesthesia Assessment: Chart Reviewed Documented by User: Tanna Jesus MD 04/27/23 13:51 PMFSH Past Medical History Medical History (Updated 04/26/23 @ 08:24 by Saranya Koenig, BILLIE) Asthma Chest pain Diabetes High cholesterol IDDM (insulin dependent diabetes mellitus) Family History Family history of problems with anesthesia: No Surgical History Surgical History H/O tubal ligation H/O: hysterectomy History of Problems with Anesthesia: No Social History Social History (Updated 02/16/23 @ 09:09 by Leti Mccauley PA-C) Household Members: Family Alcohol intake: never Patient Tobacco Use Status: Former Tobacco user Tobacco use type: Smokeless Tobacco Advance Directives: No Advance Directives Information Provided: Yes Meds Allergies Allergy/AdvReac Type Severity Reaction Status Date / Time Sulfa (Sulfonamide Allergy Unknown Verified 02/16/23 08:40 Antibiotics) Home Medications Medication Instructions Recorded Confirmed Last Taken Type clonazepam 2 mg tablet 2 mg PO TID 02/16/23 Unknown History losartan 50 mg-hydrochlorothiazide 1 tab PO DAILY 02/16/23 Unknown History 12.5 mg tablet Exam Airway Mallampati Class: III TM Dist: >3cm Neck ROM: Full Assessment and Plan Assessment Anesthesia Assessment: Anesthesia Plan Discussed Final Anesthetic Review Family History of Problems with Anesthesia: No History of Problems with Anesthesia: No NPO: Yes ASA Class: III Final Preanesthetic Review: No Changes in Pt Med Stat, Meds/Allgs Chart Reviewed, Consent Obtained/Reviewed and Anes Risks/Benef Reviewed Patient Risk: Intermediate Procedure Risk: Low Anesthetic Plan Anesthetic Plan: MAC: Disposition: Standard PACU
[2023-04-27 13:52] VITALS: BP 137/65; PULSE 80; RESP 16; TEMP 36.4; O2SAT 96; BMI 25.8
[2023-04-27 13:54] LABS: Glucose, Whole Blood 143 mg/dL (60-115)
--- NOTE | 2023-04-27 14:39 | MHC.SHP ---
Pre-Procedural Eval Section A Date of Service: 04/27/23 Section B Chief Complaint: Abdominal distension (gaseous), Dysphagia Relevant Family History (Specify if Yes): No Relevant Social History: None Present Medications: see Short Stay Collaborative assessment Medical History: Significant History (Asthma Diabetes High cholesterol IDDM (insulin dependent diabetes mellitus)) History of Previous Operations: Relevant previous surgery/procedure and date(s) (H/O tubal ligation H/O: hysterectomy) Allergies: Allergies Allergy/AdvReac Type Severity Reaction Status Date / Time Sulfa (Sulfonamide Allergy Unknown Verified 02/16/23 08:40 Antibiotics) Review of Systems Sugical H&P ROS: Negative: Constitution, Cardiovascular, Respiratory, Neurological, Psychiatric, Hem-Onc, Allergic/Immunologic, Gastrointestinal, Genitourinary, Musculoskeletal, Integumentary, Endocrine and Eyes/Ears/Nose/Throat Exam Surgical H&P Exam: Normal: HEENT, Normal: Heart, Normal: Lungs, Normal: Extremities, Normal: Abdomen, Normal: Skin and Normal: Neurological Plan Diagnosis/Plan: Unchanged I have reviewed the history and physical and performed a pertinent physical examination on my patient. No changes have occurred unless specified. Time Spent With Patient Time: Total time managing care of this patient today ____ minutes.
--- NOTE | 2023-04-27 14:41 | P.OP_ITS ---
Operative Note Operative Note Date of Service: 04/27/23 Narrative: Operative Information Procedure Description: EGD, Colonoscopy Indication: dysphagia, screening Anesthesia: MAC FLEXIBLE TRANSORAL UPPER GASTROINTESTINAL ENDOSCOPY AND COLONOSCOPY PROCEDURE NOTE UPPER ENDOSCOPY Consent: Indications for the procedure and potential complications of bleeding, perforation, reaction to medications and missed diagnosis were discussed with the patient and informed consent was obtained. Instrument: Olympus GIF H 190 J mid size upper endoscope Monitoring: Vital signs and clinical assessment, continuous EKG monitoring, Pulse oximetry, Carbon Dioxide monitoring and blood pressure monitoring were done throughout the procedure. Procedure: The patient was placed in the left lateral decubitis position and pre-procedure medications were administered and a bite block was placed. The endoscope was inserted into the mouth and advanced under direct vision to the third part of duodenum. A careful inspection was made as the upper endoscope was withdrawn including a retroflexed examination of the proximal stomach; Findings and interventions are described below. Findings: Larynx:normal Esophagus: GE junction at 44 cm, diaphragm hiatus at 44 cm, mild esophagitis, bx taken from GEJ and distal/proximal esophagus--balloon dilation done at LES and UEs to 20 mm, no tears seen, tertiary contractions noted Stomach: Patchy erythema. Biopsies were obtained. Grade 2 flap valve on retroflexed examination of the cardia. Duodenum: Normal bulb and descending duodenum, Intervention: Biopsies as noted above COLONOSCOPY Instrument: Olympus variable stiffness pediatric scope 190L Colonoscopy Monitoring: Vital signs and clinical assessment, continuous EKG monitoring, Pulse oximetry, Carbon Dioxide monitoring and blood pressure monitoring were done throughout the procedure. Colon withdrawal time was 14 minutes. Procedure: The patient was placed in the left lateral decubitis position and pre-procedure medications were administered. After a digital rectal examination of the ano-rectum, the video colonoscope was inserted into the rectum and advanced through the colon to the cecum/TI. The colonoscope was slowly withdrawn in a retrograde panoramic fashion and the colon mucosa was carefully examined including a retroflexed view of the rectum. Findings and interventions are described below. Procedure Difficulty:moderate due to looping and tortuous colon Findings: Terminal Ileum-normal Cecum:normal Ascending Colon: 10 mm sessile polyp removed with cold snare, not retrieved Transverse Colon -normal Descending Colon:normal Sigmoid Colon: moderate diverticulosis Rectum: Retroflexion with small internal hemorrhoids, grade I Anorectum - normal Colon preparation: [place] Bowel Preparation Scale Right colon; 1-2 Transverse colon: 2 Left colon; 2 (0 = Unprepared colon segment with mucosa not seen due to solid stool that cannot be cleared. 1 = Portion of mucosa of the colon segment seen, but other areas of the colon segment not well seen due to staining, residual stool and/or opaque liquid. 2 = Minor amount of residual staining, small fragments of stool and/or opaque liquid, but mucosa of colon segment seen well. 3 = Entire mucosa of colon segment seen well with no residual staining, small fragments of stool or opaque liquid) Impression and Post Procedure Diagnosis: Endoscopy Findings: gastritis esophageal dysmotility, gastritis Colonoscopy Findings: polyp internal hemorrhoids diverticular disease Plan: Await Pathology results Repeat Colonoscopy in 5 years due to polyp and fair right sided prep or earlier if clinically indicated High fiber diet leaflet avoid straining at stool, epsom salts and sitz bath, anusol supps or cream reflux precautions Above findings were reviewed with the patient and relevant handouts were provided if indicated.
[2023-04-27 15:44] VITALS: BP 140/70; PULSE 89; RESP 16; TEMP 36.1; O2SAT 97
[2023-04-27 15:59] VITALS: BP 149/70; PULSE 74; RESP 14; O2SAT 98
[2023-04-27] MEDS: Acetaminophen 325 MG TABLET 975 MG PO (16:07)
[2023-04-27 16:14] VITALS: BP 145/67; PULSE 76; RESP 14; TEMP 36.3; O2SAT 99
== END 2023-04-27 16:33 | disposition home or self-care (01) ==
PROVIDERS: PCP Internal Medicine; Visit Provider Internal Medicine Gastroenterology
PROC: (CPT 45385; principal; 2023-04-27 14:50)
DX: Z12.11 Encounter for screening for malignant neoplasm of colon (principal); K63.5 Polyp of colon; K57.30 Diverticulosis of large intestine without perforation or abscess without bleeding; K64.0 First degree hemorrhoids; R13.10 Dysphagia, unspecified; R14.0 Abdominal distension (gaseous); K29.50 Unspecified chronic gastritis without bleeding; K20.80 Other esophagitis without bleeding; K22.4 Dyskinesia of esophagus; K44.9 Diaphragmatic hernia without obstruction or gangrene; J45.909 Unspecified asthma, uncomplicated; E78.00 Pure hypercholesterolemia, unspecified; E11.9 Type 2 diabetes mellitus without complications; Z79.4 Long term (current) use of insulin; Z79.899 Other long term (current) drug therapy; Z88.2 Allergy status to sulfonamides; Z87.891 Personal history of nicotine dependence
CPT/HCPCS: 45385; 43249; 43239; 82947; 88305; 88342; C1726

== ENCOUNTER → 2023-04-27 12:40 | Outpatient (BNV) | payer MEDICAID, SELFPAY | PROVIDERS: PCP Internal Medicine; Visit Provider Internal Medicine Gastroenterology | DX: Z12.11 Encounter for screening for malignant neoplasm of colon (principal); R13.10 Dysphagia, unspecified; K29.70 Gastritis, unspecified, without bleeding; K64.0 First degree hemorrhoids; K57.30 Diverticulosis of large intestine without perforation or abscess without bleeding; D12.2 Benign neoplasm of ascending colon | CPT/HCPCS: 43249; 45385 ==

== ENCOUNTER 2023-05-09 12:10 | Outpatient (AMB) | payer MEDICAID, SELFPAY ==
[2023-05-09 12:32] VITALS: BMI 28.4
--- NOTE | 2023-05-09 12:32 | A.OFFVIS_ITS ---
Intake VS Expanded 05/09/23 12:32 Height 5 ft 6 in Weight 176 lb 2.389 oz BMI 28.4 Comment Reported Ht Intake Visit Reasons: DM2 Allergies Sulfa (Sulfonamide Antibiotics) Allergy (Verified 05/11/23 11:15) Unknown HPI Nutrition Presentation Details Pt presents for MNT for T2DM. Pt was referred by PCP: Dr. Fitzpatrick Pt reports taking Lantus 60 units/d, lispro 10 units with meals. Pt did not bring glucometer ot this appt. Typical meal intake B: 2 slices of bread with egg, cheese, coff ee 2 cups , diet sugar and whole milk 3pm: sandwich or waffles syrup sugar natalia e 5-6 pm : chicken , empanada , water or d iet soda exercise: sedentary ETOH/SMoking: denies Most Recent Diabetes Results: Creatinine 0.69 mg/dL (0.5-1.4) 01/04/23 Blood Urea Nitrogen 10 mg/dL (9-16) 01/04/23 Sodium 133 mmol/L (135-145) L 01/04/23 Potassium 3.8 mmol/L (3.3-5.1) 01/04/23 Chloride 99 mmol/L (96-108) 01/04/23 Carbon Dioxide 25 mmol/L (22-29) 01/04/23 Calcium 8.9 mg/dL (8.4-10.2) 01/04/23 AST 11 U/L (5-31) 01/04/23 ALT 18 U/L (0-31) 01/04/23 Total Protein 6.5 g/dL (6.5-8.0) 01/04/23 Albumin 4.1 g/dL (3.5-5.0) 01/04/23 [facility] Medical History Chest pain Diabetes Asthma High cholesterol IDDM (insulin dependent diabetes mellitus) Surgical History History of esophagogastroduodenoscopy (EGD) Hx of colonoscopy H/O: hysterectomy H/O tubal ligation Social History Household Members: Family Alcohol intake: never Patient Tobacco Use Status: Former Tobacco user Tobacco use type: Smokeless Tobacco Assessment & Plan Assessment & Plan (1) Diabetes: Code(s): E11.9 - Type 2 diabetes mellitus without complications Plan: wt: 80 kg Est kcal needs as per MSJ: 1700 (40% carb, 30% protein/fat) Est fluid needs as per 30 ml/d: 2400 Est prot per day as per 1 g/kg bw: 80 Recommend fiber intake : 8-10 g per day and gradually increase to 25-28 g per day for women and 35-38 g for men or as tolerated Recommend sodium intake per day : less than 2000 mg Educated patient on: ( R = reviewed V = verbalizes understanding N/R = needs review N/A = not applicable * Food sources of carbohydrate, adequate serving sizes and its role in various health conditions: R * Differences between complex carbohydrates a simple carbohydrates, role of fiber in diet: R * Differences between types of fats and role in diet (mono on saturated fat fatty acids, saturated fatty acids, trans fats): R basic * Food sources of sodium in salt and healthy modifications for heart health in kidney health: R * Healthy plate method concept: R V * Physical activity: Benefits a precaution: R * Hypoglycemia protocol (rule of 15): R * Dietary prevention of Hyperglycemia: R V Patient Instructions: Follow healthy plate method, see 1800 mitch meal plan as reference Take all your medications as prescribed by your doctor Coding Level of Care Code Nutr Indiv Intake (07176) Diagnoses Diabetes E11.9 Time Spent (min) 30
== END 2023-05-09 13:08 | disposition home or self-care (01) ==
PROVIDERS: PCP Internal Medicine; Visit Provider Dietitian, Registered
DX: E11.9 Type 2 diabetes mellitus without complications (principal)

== ENCOUNTER → 2023-05-09 12:10 | Outpatient (BNVA) | payer MEDICAID, SELFPAY | PROVIDERS: PCP Internal Medicine; Visit Provider Dietitian, Registered | DX: E11.9 Type 2 diabetes mellitus without complications (principal) | CPT/HCPCS: 97802 ==

== ENCOUNTER 2023-05-11 11:09 | Outpatient (AMB) | payer MEDICAID, SELFPAY ==
--- NOTE | 2023-05-11 11:15 | A.OFFVIS_ITS ---
Intake Vital Signs 05/11/23 11:18 Height 5 ft 6 in Weight 170 lb BMI 27.4 BP 143/75 H Blood Pressure Location Lt brachial Position Sitting Pulse 94 Intake Visit Reasons: s/p egd/colon- Schneider Intake Note: Patient follow up for EGD/Colonoscopy screening Patient cc: abdominal bloating, constipation and acid reflex. Business Initiatives Manager Required: Yes Business Initiatives Manager Name: C interpeter Accompanied by: Self / Same As Patient Allergies Sulfa (Sulfonamide Antibiotics) Allergy (Verified 05/11/23 11:15) Unknown HPI HPI Comments History of Present Illness Details A 47-year-old female follows up after recent EGD colonoscopy for dysphagia in screening She presents today she says she has abdominal bloating her swallowing is much improved since she had her procedure. She is unable to identify any specific gives her symptoms. She then does admit that she began with smoking cigarettes again because she is some stress in her life. She is currently living with a friend. Reviewed procedure report, pathology recommendation She has normal bowel pattern No dysphagia, nausea, vomiting, hematemesis, hematochezia fever or chills PFSH Medical History Chest pain Diabetes Asthma High cholesterol IDDM (insulin dependent diabetes mellitus) Surgical History History of esophagogastroduodenoscopy (EGD) Hx of colonoscopy H/O: hysterectomy H/O tubal ligation Social History Household Members: Family Alcohol intake: never Patient Tobacco Use Status: Former Tobacco user Tobacco use type: Smokeless Tobacco Review of Systems Const All systems reviewed & are unremarkable except as noted in HPI and below Card Denies chest pain and Denies dyspnea Resp Denies dyspnea GI Denies abdominal pain, Reports heartburn, Denies nausea and Denies vomiting Physical Exam Vital Signs: Last Vital Signs Pulse 94 05/11/23 11:18 BP 143/75 H 05/11/23 11:18 BMI result Body Mass Index 27.4 Const General: cooperative, healthy appearing, comfortable and no acute distress Orientation/consciousness: patient oriented x3 Limitations: language barrier Eyes Sclerae: sclerae normal Resp Effort & Inspection: normal respiratory effort and able to speak in complete sentences Skin General skin exam: no rashes or lesions noted Neuro General: patient oriented x3 Extrem General: Yes full ROM Psych Appearance: grossly normal and well kempt Mental Status: mental status grossly normal Speech and movement: Normal speech and movement present Affect: Sad affect present Attitude: cooperative Thought process: Normal thought process present Thought content: Normal thought content present Results Reviewed Results Reviewed: Endoscopy Findings: gastritis esophageal dysmotility, gastritis Colonoscopy Findings: polyp internal hemorrhoids diverticular disease Plan: Await Pathology results Repeat Colonoscopy in 5 years due to polyp and fair right sided prep or earlier if clinically indicated High fiber diet leaflet avoid straining at stool, epsom salts and sitz bath, anusol supps or cream reflux precautions sahvon: Lizet Cash Age/Sex: 47/F Attending: Mary Schneider MD : 1975 Submitted by: Mary Schneider MD Copies to: Cheryl Fitzpatrick MD MR #: [id number] Status: [facility] Collected: 04/27/23 Location: [facility] Received: 04/28/23 Diagnosis A. Stomach, biopsy: Gastric antral and body mucosa with congestion and focal minimal chronic inactive inflammation; negative for H pylori, intestinal metaplasia and dysplasia. B. Gastroesophageal junction, biopsy: Squamous mucosa with hyperplasia and columnar mucosa with minimal chronic inactive inflammation; negative for intestinal metaplasia and dysplasia. C. Esophagus, distal, biopsy: Squamous mucosa with mild hyperplasia and spongiosis compatible with esophagitis; no columnar mucosa present. D. Esophagus, proximal, biopsy: Squamous mucosa with mild hyperplasia and spongiosis, and few focal intraepithelial eosinophils (up to 2 per high-power field), compatible with esophagitis; no evidence of eosinophilic esophagitis; no columnar mucosa present. Clinical History Pre-Op Dx: Screening, dysphagia Post-Op Dx: Mild esophagitis, gastritis, esophageal dysmotility Microscopic Description Microscopic sections reviewed. Immunohistochemical stain for H. pylori on A is negative with appropriate control. Material Received A. Bx stomach B. GE junction C. Distal esophagus bx D. Proximal esophagus bx Gross Description Received in 4 parts. Part A: Received in formalin labeled ?bx stomach? are 3 glistening, semitranslucent, soft, nuñez-peace irregular tissue fragments ranging from 0.2-0.3 cm in greatest dimension which are submitted in toto in a single cassette labeled A. Part B: Received in formalin labeled ?GE junction? are 2 glistening, semitranslucent, nuñez-white irregular tissue fragments measuring 0.2 and 0.3 cm greatest dimension which are submitted toto in a single cassette labeled B. Patient: Lizet Cash Age/Sex: 47/F MR#: [id number] Page 1 of 2 Assessment & Plan Assessment & Plan (1) Dysphagia: Code(s): R13.10 - Dysphagia, unspecified Plan: Reviewed now resolved (2) Bloating: Code(s): R14.0 - Abdominal distension (gaseous) Plan: Food diary Try to ID , low FODMAP Medications: New pantoprazole 40 mg PO DAILY 30 days 30 tabs 3RF Patient Instructions: Colonoscopy 5 years Reflux precautions, low FODMAP, Pantoprazole food diary call with concerns Coding Level of Care Code Est Pt Level 3 (29163) Diagnoses Dysphagia R13.10 Bloating R14.0 Time Spent (min) 30 Comment Business Initiatives Manager
[2023-05-11 11:18] VITALS: BP 143/75; PULSE 94; BMI 27.4
== END 2023-05-11 11:50 | disposition home or self-care (01) ==
PROVIDERS: PCP Internal Medicine; Visit Provider Physician Assistant
DX: R13.10 Dysphagia, unspecified (principal); R14.0 Abdominal distension (gaseous)
CPT/HCPCS: 99213

== ENCOUNTER → 2023-05-11 11:09 | Outpatient (BNVA) | payer MEDICAID, SELFPAY | PROVIDERS: PCP Internal Medicine; Visit Provider Physician Assistant | DX: R13.10 Dysphagia, unspecified (principal); R14.0 Abdominal distension (gaseous) | CPT/HCPCS: 99212 ==

== ENCOUNTER 2023-05-18 15:38 | Outpatient (REF) | payer MEDICAID, SELFPAY ==
--- NOTE | ~2023-05-18 | MR_ITS ---
EXAMINATION: MR BRAIN WITH AND WITHOUT CONTRAST CLINICAL INFORMATION: Demyelinating disease COMPARISON: MRI brain 11/26/2022 TECHNIQUE: MRI of the brain was obtained using routine sequences before and following administration of intravenous contrast. A total of 7 mL of Gadavist was administered intravenously. FINDINGS: Stable mild burden of scattered T2 FLAIR hyperintensities throughout the subcortical and periventricular white matter, some of which are ovoid/linear and oriented orthogonally to the lateral ventricles. There is involvement of the left temporal lobe periventricular white matter. Some demonstrate corresponding T2 shine through. No new or enhancing lesions are seen. No infratentorial lesions are identified. No acute infarct. The GRE sequence is without susceptibility artifact to suggest acute or chronic blood products. No extra-axial fluid collection. The ventricles and sulci are normal in size and configuration without significant volume loss or hydrocephalus. No significant mass effect or herniation pattern. The intracranial dural venous sinus and arterial flow voids are preserved. Apparent 7 mm differential hypoenhancement within the posterior left paramedian pituitary gland (image 20, series 11) can be correlated with pituitary function tests and further evaluated with contrast-enhanced MRI sella protocol. The orbits are grossly unremarkable. Symmetric prominence of the bilateral superior ophthalmic veins. Mild scattered paranasal sinus mucosal disease and retention cyst along the floor of the right maxillary sinus. Single opacified left mastoid air cell. Retention cysts within the right nasopharynx. Normal marrow signal. MR/MR head/brain wo/w con IMPRESSION: 1. Stable mild burden of supratentorial white matter disease with imaging features suggestive of demyelinating disease. No new or enhancing lesions are seen. 2. Apparent 7 mm differential hypoenhancement within the posterior left paramedian pituitary gland (image 20, series 11) can be correlated with pituitary function tests and further evaluated with contrast-enhanced MRI sella protocol.
[2023-05-18] MEDS: gadobutroL 7.5 ML VIAL IVPUSH (16:32)
== END 2023-05-18 15:39 | disposition home or self-care (01) ==
LOC: HO.MRI 15:38
PROVIDERS: PCP Internal Medicine; Visit Provider Psychiatry & Neurology Neurology
DX: G37.9 Demyelinating disease of central nervous system, unspecified (principal)
CPT/HCPCS: 70553; A9585

== ENCOUNTER 2023-06-21 09:15 | Outpatient (REF) | payer MEDICAID, SELFPAY ==
[2023-06-21 11:53] LABS: Cholesterol 317 mg/dL (<200); HDL Cholesterol 45 mg/dL (>40); LDL Cholesterol Calculated 219 mg/dL (<100); Thyroid Stimulating Hormone 1.11 uIU/mL (0.32-4.0); Triglycerides 266 mg/dL (<150)
[2023-06-21 12:35] LABS: Creatinine Urine 152.59 mg/dL; Microalbum/Creatinine Ratio Ur 19.6 ug/mg cr (<30)
[2023-06-23 04:59] LABS: C Peptide 0.25 ng/mL (0.80-3.85)
[2023-07-05 23:29] LABS: Islet Cell Antibody Screen NEGATIVE (NEGATIVE)
== END 2023-06-21 09:16 | disposition home or self-care (01) ==
LOC: HO.HHCL 09:15
PROVIDERS: Visit Provider Physician Assistant Medical
DX: E11.9 Type 2 diabetes mellitus without complications (principal)
CPT/HCPCS: 36415; 80061; 82043; 82570; 84443; 84681; 86341

== ENCOUNTER 2023-06-22 11:11 | Outpatient (AMB) | payer MEDICAID, SELFPAY ==
--- NOTE | 2023-06-22 11:26 | A.OFFVIS_ITS ---
Intake Vital Signs 06/22/23 11:29 Height 5 ft 6 in Weight 176 lb BMI 28.4 BP 121/72 Blood Pressure Location Lt brachial Position Sitting Respiration 17 Pulse 102 H Intake Visit Reasons: 6 week follow up Intake Note: Patient follow up for Patient cc: acid reflex on and off, and denies any other GI issues. Electronic Equipment Repairer Required: Yes Electronic Equipment Repairer Name: [facility] [place] Accompanied by: Self / Same As Patient Allergies Sulfa (Sulfonamide Antibiotics) Allergy (Verified 06/22/23 11:25) Unknown Medication List - Last Reconciled 06/22/23 by Leti Mccauley PA-C amitriptyline 75 mg PO DAILY bupropion HCl 300 mg PO QAM clonazepam 2 mg PO TID gabapentin 800 mg PO TID insulin lispro protamin-lispro 100 unit/mL (50-50) (Humalog Mix 50-50 Insuln U- 100) 20 units (0.2 mL) subcut TID losartan-hydrochlorothiazide 50-12.5 mg 1 tab PO DAILY ondansetron 4 mg PO Q8H PRN 24 hours pantoprazole 40 mg PO DAILY 30 days peg 3350-electrolytes 240-22.72-6.72 -5.84 gram 240 mL PO Q10M quetiapine 200 mg PO DAILY trazodone 150 mg PO BEDTIME HPI HPI Comments History of Present Illness Details A 47 y/o female f/u with bloating- continues to have bloating on and off- she cannot ID anything specific She takes insulin, does not like the injections- they cause her discomfort He begin pantoprazole for acid reflux with excellent response Appetite is good bowels are normal She was seen after EGD/ colonoscopy in April- Reviewed again-procedure reports- She has an appt-@ [facility] - Endocrinology-next month. She has no other complaints- [facility] Medical History Chest pain Diabetes Asthma High cholesterol IDDM (insulin dependent diabetes mellitus) Surgical History History of esophagogastroduodenoscopy (EGD) Hx of colonoscopy H/O: hysterectomy H/O tubal ligation Social History Household Members: Family Alcohol intake: never Patient Tobacco Use Status: Former Tobacco user Tobacco use type: Smokeless Tobacco Review of Systems Const All systems reviewed & are unremarkable except as noted in HPI and below Card Denies chest pain and Denies dyspnea Resp Denies dyspnea GI Denies abdominal pain, Reports bloating and Denies heartburn Psych Reports anxiety, Reports depression, Denies homicidal ideation and Denies suicidal ideation Physical Exam Vital Signs: Last Vital Signs Pulse 102 H 06/22/23 11:29 Resp 17 06/22/23 11:29 BP 121/72 06/22/23 11:29 BMI result Body Mass Index 28.4 Const General: cooperative, healthy appearing, comfortable and no acute distress Orientation/consciousness: patient oriented x3 Limitations: language barrier Resp Effort & Inspection: normal respiratory effort and able to speak in complete sentences Auscultation: clear to auscultation bilaterally Cardio Rate: regular rate ([id number]) Rhythm: regular rhythm GI Inspection: Yes obesity Palpation (GI): Soft to palpation and nontender Auscultation: normal bowel sounds Neuro General: patient oriented x3 Extrem General: Yes full ROM Psych Mental Status: mental status grossly normal Speech and movement: Normal speech and movement present and Clear speech present Affect: normal affect Attitude: cooperative Thought process: Normal thought process present Thought content: Normal thought content present Assessment & Plan Assessment & Plan (1) Bloating: Code(s): R14.0 - Abdominal distension (gaseous) Plan: FOD map (2) Chronic GERD: Code(s): K21.9 - Gastro-esophageal reflux disease without esophagitis Plan: Continue ppi avoid culprits Plan Colonoscopy 5 years Reflux precautions, low FODMAP, continue Pantoprazole food diary- call with concerns Patient Instructions: Colonoscopy 5 years- Reflux precautions, low FODMAP, continue Pantoprazole food diary-try to identify culprits call with concerns Coding Level of Care Code Est Pt Level 3 (20291) Diagnoses Bloating R14.0 Chronic GERD K21.9 Time Spent (min) 30 Comment 1st interp- not audible [id number] interp-
[2023-06-22 11:29] VITALS: BP 121/72; PULSE 102; RESP 17; BMI 28.4
== END 2023-06-22 12:23 | disposition home or self-care (01) ==
PROVIDERS: PCP Internal Medicine; Visit Provider Physician Assistant
DX: R14.0 Abdominal distension (gaseous) (principal); K21.9 Gastro-esophageal reflux disease without esophagitis
CPT/HCPCS: 99213

== ENCOUNTER → 2023-06-22 11:11 | Outpatient (BNVA) | payer MEDICAID, SELFPAY | PROVIDERS: PCP Internal Medicine; Visit Provider Physician Assistant | DX: R14.0 Abdominal distension (gaseous) (principal); K21.9 Gastro-esophageal reflux disease without esophagitis; Z79.899 Other long term (current) drug therapy | CPT/HCPCS: 99212 ==

== ENCOUNTER 2023-06-29 11:37 | Outpatient (REF) | payer MEDICAID, SELFPAY ==
--- NOTE | ~2023-06-29 | XR_ITS ---
EXAMINATION: XR CERVICAL SPINE CLINICAL INFORMATION: Chronic neck pain and bilateral shoulder pain COMPARISON: Previous cervical spine CT July 2020 TECHNIQUE: 3 views of the cervical spine were obtained. FINDINGS: Bone alignment is normal. No fracture or dislocation. Degenerative spondylosis at C4-C5 , C5-C6 and C6-C7. Disc spaces are normal. Soft tissues are normal. XR/XR cervical spine 3V IMPRESSION: Degenerative changes
--- NOTE | ~2023-06-29 | XR_ITS ---
EXAMINATION: Bilateral shoulder x-ray CLINICAL INFORMATION: Pain COMPARISON: None. TECHNIQUE: 2 views of each shoulder FINDINGS: Left: Bone alignment is normal. No fracture or dislocation. Mild joint space narrowing at the left acromioclavicular joint. The glenohumeral joint is normal. Soft tissues are normal. Right: Bone alignment is normal. No fracture or dislocation. Joint spaces are normal. Soft tissues are normal. XR/XR shoulder LT min 2V IMPRESSION: Mild joint space narrowing at the left acromioclavicular joint.
--- NOTE | ~2023-06-29 | XR_ITS ---
EXAMINATION: Bilateral shoulder x-ray CLINICAL INFORMATION: Pain COMPARISON: None. TECHNIQUE: 2 views of each shoulder FINDINGS: Left: Bone alignment is normal. No fracture or dislocation. Mild joint space narrowing at the left acromioclavicular joint. The glenohumeral joint is normal. Soft tissues are normal. Right: Bone alignment is normal. No fracture or dislocation. Joint spaces are normal. Soft tissues are normal. XR/XR shoulder RT min 2V IMPRESSION: Mild joint space narrowing at the left acromioclavicular joint.
== END 2023-06-29 11:38 | disposition home or self-care (01) ==
LOC: HO.HHCX 11:37
PROVIDERS: Visit Provider Student in an Organized Health Care Education/Training Program
DX: M54.2 Cervicalgia (principal); M25.511 Pain in right shoulder; M25.512 Pain in left shoulder; G89.29 Other chronic pain
CPT/HCPCS: 36415; 72040; 73030; 80053; 82550; 83735; 84100; 84443; 85025; 85652; 86038; 86140; 86200; 86431; 86592; 86803; 87389

== ENCOUNTER 2023-06-29 12:15 | Outpatient (REF) | payer MEDICAID, SELFPAY ==
[2023-06-29 13:24] LABS: MANUAL DIFF FLAG NO
[2023-06-29 13:45] LABS: Basophils Percent Auto 0.4 % (0-2); Eosinophils Absolute Auto 0.1 X10*3/uL (0.0-0.4); Eosinophils Percent Auto 1.7 % (0-4); Hematocrit 45.2 % (37.0-47.0); Hemoglobin 15.1 g/dl (12.0-16.0); Imm Gran Abs Auto 0.03 X10*3/uL (0.00-0.03); Imm Gran Pct Auto 0.4 % (0.0-0.4); Lymphocytes Absolute Auto 3.2 X10*3/uL (1.2-4.9); Lymphocytes Percent Auto 39.2 % (20-40); Mean Corpuscular HGB Conc 33.4 g/dl (31.0-35.0); Mean Corpuscular Hemoglobin 29.7 pg (27.0-33.0); Mean Corpuscular Volume 88.8 fL (80.0-98.0); Mean Platelet Volume 10.5 fL (9.4-12.3); Monocytes Absolute Auto 0.4 X10*3/uL (0.1-1.2); Monocytes Percent Auto 5.2 % (2-11); Neutrophils Absolute Auto 4.3 x10*3/uL (2.0-8.3); Neutrophils Percent Auto 53.1 % (45-73); Platelet Count 342 X10*3/uL (160-400); Red Blood Count 5.09 X10*6/uL (4.20-5.50); Red Cell Distribution Width 13.2 % (11.0-16.0); White Blood Count 8.1 X10*3/uL (4.8-10.8)
[2023-06-29 14:09] LABS: Alanine Aminotransferase 20 U/L (0-31); Albumin Level 4.4 g/dL (3.5-5.0); Alkaline Phosphatase 83 U/L (39-117); Anion Gap 11 (12-20); Aspartate Amino Transferase 17 U/L (5-31); Bilirubin Total 0.2 mg/dL (0.0-1.0); Blood Urea Nitrogen 16 mg/dL (9-16); C Reactive Protein 0.77 mg/dL (< or = 0.50); Calcium 9.7 mg/dL (8.4-10.2); Carbon Dioxide 27 mmol/L (22-29); Chloride 105 mmol/L (96-108); Estimated Glomerular Filt Rate > 60; Glucose Random 92 mg/dL (60-115); Potassium 3.3 mmol/L (3.3-5.1); Sodium 140 mmol/L (135-145); Total Protein 7.7 g/dL (6.5-8.0)
[2023-06-29 14:20] LABS: Erythrocyte Sedimentation Rate 9 MM/HR (0-20)
[2023-06-29 14:26] LABS: Rheumatoid Factor < 13.0 IU/mL (<15.0)
[2023-06-29 14:30] LABS: TSH reflex Free T4 1.33 uIU/mL (0.32-4.0)
[2023-06-30 05:09] LABS: HIV AB/AG Nonreactive (Nonreactive); HIV Num 1 0.05 S/CO (0.00-0.99); ~HepC Num1 0.39 S/CO (0.00-0.79); ~Hepatitis C Antibody Nonreactive (Nonreactive)
[2023-06-30 12:08] LABS: RPR Rapid Plasma Reagin NON-REACTIVE (NON-REACTIVE)
[2023-06-30 13:22] LABS: Cyclic Citrullinated Peptide <16 UNITS
[2023-06-30 15:28] LABS: Magnesium 2.2 mg/dL (1.6-2.6); Phosphorus 3.8 mg/dL (2.7-4.5)
[2023-07-03 10:38] LABS: Anti Nuclear Antibody Screen NEGATIVE (NEGATIVE)
== END 2023-06-29 12:16 | disposition home or self-care (01) ==
LOC: HO.HHCL 12:15
PROVIDERS: Visit Provider Student in an Organized Health Care Education/Training Program
DX: G72.9 Myopathy, unspecified (principal); E11.65 Type 2 diabetes mellitus with hyperglycemia; Z79.4 Long term (current) use of insulin
CPT/HCPCS: 36415; 80053; 82550; 83735; 84100; 84443; 85025; 85652; 86038; 86140; 86200; 86431; 86592; 86803; 87389

== ENCOUNTER 2023-07-22 12:40 | Outpatient (REF) | payer MEDICAID, SELFPAY ==
[2023-07-22 16:08] LABS: MANUAL DIFF FLAG NO
[2023-07-22 16:13] LABS: Basophils Percent Auto 0.5 % (0-2); Eosinophils Absolute Auto 0.2 X10*3/uL (0.0-0.4); Hematocrit 44.3 % (37.0-47.0); Hemoglobin 14.5 g/dl (12.0-16.0); Imm Gran Abs Auto 0.04 X10*3/uL (0.00-0.03); Imm Gran Pct Auto 0.5 % (0.0-0.4); Lymphocytes Absolute Auto 2.6 X10*3/uL (1.2-4.9); Lymphocytes Percent Auto 34.7 % (20-40); Mean Corpuscular HGB Conc 32.7 g/dl (31.0-35.0); Mean Corpuscular Hemoglobin 29.7 pg (27.0-33.0); Mean Corpuscular Volume 90.8 fL (80.0-98.0); Mean Platelet Volume 10.9 fL (9.4-12.3); Monocytes Absolute Auto 0.5 X10*3/uL (0.1-1.2); Monocytes Percent Auto 6.9 % (2-11); Neutrophils Absolute Auto 4.2 x10*3/uL (2.0-8.3); Neutrophils Percent Auto 55.4 % (45-73); Platelet Count 321 X10*3/uL (160-400); Red Blood Count 4.88 X10*6/uL (4.20-5.50); Red Cell Distribution Width 13.8 % (11.0-16.0); White Blood Count 7.5 X10*3/uL (4.8-10.8)
[2023-07-22 16:28] LABS: C Reactive Protein 1.69 mg/dL (< or = 0.50); Magnesium 2.3 mg/dL (1.6-2.6); Phosphorus 3.5 mg/dL (2.7-4.5)
[2023-07-22 17:17] LABS: Erythrocyte Sedimentation Rate 14 MM/HR (0-20)
[2023-07-28 14:23] LABS: Aldolase 7.7 U/L (<=8.1)
== END 2023-07-22 12:41 | disposition home or self-care (01) ==
LOC: HO.HHCL 12:40
PROVIDERS: Visit Provider Internal Medicine
DX: M60.9 Myositis, unspecified (principal); E11.65 Type 2 diabetes mellitus with hyperglycemia; Z79.4 Long term (current) use of insulin
CPT/HCPCS: 36415; 82085; 82550; 83735; 84100; 85025; 85652; 86140

== ENCOUNTER 2023-07-27 09:06 | Outpatient (AMB) | payer MEDICAID, SELFPAY ==
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
[2023-07-27 09:15] VITALS: BP 126/78; PULSE 92; RESP 16; TEMP 36.4; O2SAT 95; BMI 29.6
== END 2023-07-27 10:29 | disposition home or self-care (01) ==
PROVIDERS: PCP Internal Medicine; Visit Provider Nurse Practitioner Family
DX: M60.9 Myositis, unspecified (principal); R29.898 Other symptoms and signs involving the musculoskeletal system; M25.50 Pain in unspecified joint
CPT/HCPCS: 99204

== ENCOUNTER → 2023-07-27 09:06 | Outpatient (BNVA) | payer MEDICAID, SELFPAY | PROVIDERS: PCP Internal Medicine; Visit Provider Nurse Practitioner Family | DX: M60.9 Myositis, unspecified (principal); M25.50 Pain in unspecified joint; R29.898 Other symptoms and signs involving the musculoskeletal system | CPT/HCPCS: 99212 ==

== ENCOUNTER 2023-07-27 10:57 | Outpatient (REF) | payer MEDICAID, SELFPAY ==
[2023-07-27 14:06] LABS: Alanine Aminotransferase 19 U/L (0-31); Albumin Level 4.4 g/dL (3.5-5.0); Alkaline Phosphatase 90 U/L (39-117); Anion Gap 12 (12-20); Aspartate Amino Transferase 15 U/L (5-31); Bilirubin Total 0.2 mg/dL (0.0-1.0); Blood Urea Nitrogen 16 mg/dL (9-16); Calcium 9.7 mg/dL (8.4-10.2); Carbon Dioxide 27 mmol/L (22-29); Chloride 103 mmol/L (96-108); Estimated Glomerular Filt Rate > 60; Glucose Random 84 mg/dL (60-115); Lactate Dehydrogenase 180 U/L (122-220); Potassium 3.6 mmol/L (3.3-5.1); Sodium 138 mmol/L (135-145); Total Protein 7.7 g/dL (6.5-8.0); Vitamin D 25-OH Total 43.3 ng/mL (>30)
[2023-07-28 20:34] LABS: Antibody to SS-A Antigen <1.0 NEG AI (<1.0 NEG); Antibody to SS-B Antigen <1.0 NEG AI (<1.0 NEG); SM/Ribonucleoprotein Ab <1.0 NEG AI (<1.0 NEG); Scleroderma 70 Antibody <1.0 NEG AI (<1.0 NEG); Smith Protein <1.0 NEG AI (<1.0 NEG)
[2023-08-01 11:53] LABS: Angiotensin Converting Enzyme 33.4 U/L (9-67)
[2023-08-04 14:42] LABS: Cytosolic 5'nuc 1A Ab IgG <5 Units; Ej Ab <11 SI (<11); HMGCR Ab IgG <2 CU (<20); Jo-1 Ab <11 SI (<11); MDA5 Ab <11 SI (<11); Mi-2 alpha Ab <11 SI (<11); Mi-2 beta Ab <11 SI (<11); NXP-2 (MJ) Ab <11 SI (<11); Oj Ab <11 SI (<11); Pl-12 Ab <11 SI (<11); Pl-7 Ab <11 SI (<11); SRP Ab <11 SI (<11); TIF1 gamma Ab <11 SI (<11)
== END 2023-07-27 10:58 | disposition home or self-care (01) ==
LOC: HO.10HDL 10:57
PROVIDERS: Visit Provider Nurse Practitioner Family
DX: M60.9 Myositis, unspecified (principal)
CPT/HCPCS: 36415; 80053; 82164; 82306; 83516; 83520; 83615; 84182; 86235; 99212

== ENCOUNTER 2023-08-01 08:27 | Outpatient (AMB) | payer MEDICAID, SELFPAY ==
--- NOTE | 2023-08-01 08:32 | A.OFFVIS_ITS ---
Intake Vital Signs 08/01/23 08:38 Height 5 ft 6 in Weight 182 lb 6 oz BMI 29.4 BP 132/66 Blood Pressure Location Lt brachial Position Sitting Pulse 100 Intake Visit Reasons: left biceps bx, chronic muscle weakness lt arm Intake Note: Patient is seen in office for possible muscle biopsy, following chronic muscle weakness of the left arm. Pt c/o: onset for yrs, muscle pain, weakness, stiffness in the arms, left arm is worse, swelling, has other medical conditions such as fibromyalgia Assistant Professor Of Spanish Required: Yes Assistant Professor Of Spanish Language: Web Support Engineer Name: Cindy BENJAMIN Information Interpreted: non-clinical & clinical Photographic Equipment Inspector: Photographic Equipment Inspector offered & declined Accompanied by: Self / Same As Patient Allergies Sulfa (Sulfonamide Antibiotics) Allergy (Verified 08/01/23 08:37) Unknown Medication List - Last Reconciled 08/01/23 by Dami Wooten MD amitriptyline 75 mg PO DAILY bupropion HCl 300 mg PO QAM clonazepam 2 mg PO TID gabapentin 800 mg PO TID insulin lispro protamin-lispro 100 unit/mL (50-50) (Humalog Mix 50-50 Insuln U- 100) 20 units (0.2 mL) subcut TID losartan-hydrochlorothiazide 50-12.5 mg 1 tab PO DAILY pantoprazole 40 mg PO DAILY 30 days quetiapine 200 mg PO DAILY topiramate 50 mg PO BID trazodone 150 mg PO BEDTIME HPI left biceps bx, chronic muscle weakness lt arm HPI Details 47-year-old female referred for biopsy o f the left biceps muscle. She describes having pain and weakness of her upper extremities. She has difficulty lifting her arms even just to comb her hair. She says that these symptoms have been worsening for the past 3-4 months. She had been diagnosed with fibromyalgia in the past she has had some muscle weakness for many years. She was seen by the wood tile installation helper and referred for muscle biopsy for possible myositis. [facility] Medical History Upper extremity weakness Myositis Chest pain Diabetes Asthma High cholesterol IDDM (insulin dependent diabetes mellitus) Surgical History History of esophagogastroduodenoscopy (EGD) Hx of colonoscopy H/O: hysterectomy H/O tubal ligation Social History Household Members: Family Alcohol intake: never Patient Tobacco Use Status: Former Tobacco user Tobacco use type: Smokeless Tobacco Review of Systems Const Denies chills and Denies fever(s) Card Denies chest pain, Denies dyspnea and Denies dyspnea on exertion Resp Denies cough, Denies dyspnea and Denies dyspnea on exertion GI Denies hematochezia and Denies change in bowel habits Denies hematuria Musc Denies back pain, Reports myalgias, Denies limited range of motion and Reports muscle weakness Neuro Denies focal weakness and Denies convulsions Psych Denies depression and Denies mood swings Physical Exam Vital Signs: Last Vital Signs Pulse 100 08/01/23 08:38 BP 132/66 08/01/23 08:38 BMI result Body Mass Index 29.4 Const General: comfortable and no acute distress Orientation/consciousness: patient oriented x3 Neck Neck: Yes no lymphadenopathy Resp Auscultation: clear to auscultation bilaterally Cardio Rhythm: regular rhythm GI Palpation (GI): Soft to palpation, nontender and no guarding Neuro General: patient oriented x3 Assessment & Plan Assessment & Plan (1) Myositis: Code(s): M60.9 - Myositis, unspecified Qualifiers: Myositis location: upper extremity Myositis type: other type Plan: She has had upper extremity weakness and was referred to me for muscle biopsy of the left biceps for diagnosis. I explained the technique of this procedure with monitored anesthesia care nurse as seizure. I reviewed the risks including but not limited to bleeding, infections, poor healing, postop pain, as well as benefits and alternatives. I explained to her what to expect postoperatively. Coding Level of Care Code New Pt Level 3 (97190) Diagnoses Myositis M60.9 Myositis location: upper extremity Myositis type: other type
[2023-08-01 08:38] VITALS: BP 132/66; PULSE 100; BMI 29.4
== END 2023-08-01 08:53 | disposition home or self-care (01) ==
PROVIDERS: PCP Internal Medicine; Referring Provider Nurse Practitioner Family; Visit Provider Surgery
DX: M60.9 Myositis, unspecified (principal)
CPT/HCPCS: 99203

== ENCOUNTER → 2023-08-01 08:27 | Outpatient (BNVA) | payer MEDICAID, SELFPAY | PROVIDERS: PCP Internal Medicine; Referring Provider Nurse Practitioner Family; Visit Provider Surgery | DX: M60.9 Myositis, unspecified (principal) | CPT/HCPCS: 99202 ==

== ENCOUNTER 2023-08-08 16:06 | Outpatient (REF) | payer MEDICAID, SELFPAY ==
--- NOTE | ~2023-08-08 | MR_ITS ---
EXAMINATION: MR BRAIN WITHOUT AND WITH CONTRAST CLINICAL INFORMATION: Chronic migraines. Rule out adenoma. COMPARISON: Brain MRI dated 05/18/2023. TECHNIQUE: Multiplanar, multisequential imaging was obtained without and with intravenous administration of contrast. Intravenous contrast: Gadavist 4 mL. FINDINGS: No abnormal focus of decreased differential enhancement is seen within the pituitary gland. The infundibulum is midline. The cavernous sinuses opacify symmetrically. The internal carotid artery flow voids are maintained. No suprasellar soft tissue abnormality is seen. No diffusion abnormalities are identified to suggest an acute or subacute infarct. The ventricles are normal in size. No mass effect or midline shift is seen. Mild white matter signal changes remain stable. No extra-axial fluid collections are noted. The brainstem and cerebellum are normal. On postcontrast imaging, there is no abnormal parenchymal or leptomeningeal enhancement. The craniovertebral junction, marrow signal, and midline structures are normal. The mastoid air cells are well aerated. There is mild mucosal thickening in the paranasal sinuses. MR/MR head/brain wo/w con IMPRESSION: No pituitary abnormality identified. Stable scattered white matter signal changes. No abnormal parenchymal enhancement. No acute process.
[2023-08-08] MEDS: gadobutroL 7.5 ML VIAL IVPUSH (16:53)
== END 2023-08-08 16:07 | disposition home or self-care (01) ==
LOC: HO.MRI 16:06
PROVIDERS: PCP Internal Medicine; Visit Provider Psychiatry & Neurology Neurology
DX: G43.709 Chronic migraine without aura, not intractable, without status migrainosus (principal)
CPT/HCPCS: 70553; A9585

== ENCOUNTER 2023-08-12 08:55 | Day surgery (SDC) | payer MEDICAID, SELFPAY ==
[2023-08-09 16:55] VITALS: BMI 29.4
[2023-08-12 09:47] VITALS: BP 153/91; PULSE 85; RESP 16; TEMP 36.7; O2SAT 98
[2023-08-12 09:58] VITALS: BMI 29.0
--- NOTE | 2023-08-12 10:17 | MHC.SHP ---
Pre-Procedural Eval Section A Date of Service: 08/12/23 The patient is an INPATIENT: No The History & Physical has been completed within 30 days and I have reviewed it.: Yes Section B Chief Complaint: Myositis, unspecified Allergies: Allergies Allergy/AdvReac Type Severity Reaction Status Date / Time Sulfa (Sulfonamide Allergy Unknown Verified 08/12/23 09:53 Antibiotics) Plan I have reviewed the history and physical and performed a pertinent physical examination on my patient. No changes have occurred unless specified. Time Spent With Patient Time: Total time managing care of this patient today ____ minutes.
--- NOTE | 2023-08-12 10:30 | P.CONAN_ITS ---
Documented by User: Livia Duron NP 08/10/23 14:53 HPI - Anesthesia Eval Consult details Narrative: 47yo F for Left Bicep Muscle Biopsy (chronic weakness LUE) s/p EGD and [place] 04/2023 with [facility] Active Problems Active Problems: All Active Problems (Updated 07/29/23 @ 08:37 by Mckenzie Jimenez, [facility]) IDDM (insulin dependent diabetes mellitus) (Acute) Upper extremity weakness (Acute) Myositis (Acute) Chronic GERD (Acute) Chronic pain (Acute) Fibromyalgia (Acute) Bloating (Acute) Encounter for screening colonoscopy (Acute) Dysphagia (Acute) Diabetes (Acute) Past Medical History Medical History Upper extremity weakness Myositis Chest pain Diabetes Asthma High cholesterol IDDM (insulin dependent diabetes mellitus) Family History Family history of problems with anesthesia: No Surgical History Surgical History History of esophagogastroduodenoscopy (EGD) Hx of colonoscopy H/O: hysterectomy H/O tubal ligation History of Problems with Anesthesia: No Social History Social History Household Members: Family Alcohol intake: never Patient Tobacco Use Status: Current everyday Tobacco user Tobacco use type: Cigarette Cigarettes Per Day: 1 Smoked in Last 30 Days: Yes Use of substances other than those prescribed or required for medical reasons: No Are you DNR?: No Advance Directives: No Advance Directives Information Provided: Yes Meds Allergies Allergy/AdvReac Type Severity Reaction Status Date / Time Sulfa (Sulfonamide Allergy Unknown Verified 08/12/23 09:53 Antibiotics) Home Medications Medication Instructions Recorded Confirmed Last Taken Type clonazepam 2 mg tablet 2 mg PO TID 02/16/23 08/12/23 08/12/23 History losartan 50 mg-hydrochlorothiazide 1 tab PO DAILY 02/16/23 08/12/23 08/11/23 History 12.5 mg tablet topiramate 50 mg tablet 50 mg PO BID 07/27/23 08/12/23 Unknown History insulin lispro protamine-lispro 12 unit subcut TID 08/12/23 08/12/23 08/12/23 07:00 History 100 unit/mL (50-50) subcutaneous 6 units susp (Humalog Mix 50-50 Insuln U-100) Exam Height,Weight and Vital Signs: Height 5 ft 6 in Weight 82.724 kg Pertinent Lab Results Pertinent Lab Results: Laboratory Tests 07/22/23 07/27/23 12:47 11:05 WBC 7.5 Hgb 14.5 Hct 44.3 Plt Count 321 Sodium 138 Potassium 3.6 Chloride 103 Carbon Dioxide 27 BUN 16 Creatinine 0.69 Narrative Narrative: EKG 12/2022 Vent. Rate : 097 BPM Atrial Rate : 097 BPM P-R Int : 182 ms QRS Dur : 108 ms QT Int : 366 ms P-R-T Axes : 059 -72 046 degrees QTc Int : 464 ms Normal sinus rhythm Possible Left atrial enlargement Left axis deviation Minimal voltage criteria for LVH, may be normal variant ( Hansel product ) Abnormal ECG When compared with ECG of 25-DEC-2022 12:40, Left bundle branch block is no longer Present Assessment and Plan Assessment Anesthesia Assessment: Chart Reviewed Final Anesthetic Review Family History of Problems with Anesthesia: No History of Problems with Anesthesia: No Documented by User: Ya Hernandez DO 08/12/23 10:37 [facility] Past Medical History Medical History Upper extremity weakness Myositis Chest pain Diabetes Asthma High cholesterol IDDM (insulin dependent diabetes mellitus) Family History Family history of problems with anesthesia: No Surgical History Surgical History History of esophagogastroduodenoscopy (EGD) Hx of colonoscopy H/O: hysterectomy H/O tubal ligation History of Problems with Anesthesia: No Social History Social History Household Members: Family Alcohol intake: never Patient Tobacco Use Status: Current everyday Tobacco user Tobacco use type: Cigarette Cigarettes Per Day: 1 Smoked in Last 30 Days: Yes Use of substances other than those prescribed or required for medical reasons: No Are you DNR?: No Advance Directives: No Advance Directives Information Provided: Yes Meds Allergies Allergy/AdvReac Type Severity Reaction Status Date / Time Sulfa (Sulfonamide Allergy Unknown Verified 08/12/23 09:53 Antibiotics) Home Medications Medication Instructions Recorded Confirmed Last Taken Type clonazepam 2 mg tablet 2 mg PO TID 02/16/23 08/12/23 08/12/23 History losartan 50 mg-hydrochlorothiazide 1 tab PO DAILY 02/16/23 08/12/23 08/11/23 History 12.5 mg tablet topiramate 50 mg tablet 50 mg PO BID 07/27/23 08/12/23 Unknown History insulin lispro protamine-lispro 12 unit subcut TID 08/12/23 08/12/23 08/12/23 07:00 History 100 unit/mL (50-50) subcutaneous 6 units susp (Humalog Mix 50-50 Insuln U-100) Exam Exam Date and Time: August 12, 2023 1030 Height,Weight and Vital Signs: Height 5 ft 6 in Weight 82.724 kg Height 5 ft 6 in Weight 81.556 kg Vital Signs Temperature 98.0 F 08/12/23 09:47 Pulse Rate 85 08/12/23 09:47 Respiratory Rate 16 08/12/23 09:47 Blood Pressure 153/91 H 08/12/23 09:47 Pulse Oximetry 98 08/12/23 09:47 Oxygen Delivery Method Room Air 08/12/23 09:47 Temperature 98.0 F 08/12/23 09:47 Pulse Rate 85 08/12/23 09:47 Respiratory Rate 16 08/12/23 09:47 Blood Pressure 153/91 H 08/12/23 09:47 Pulse Oximetry 98 08/12/23 09:47 Oxygen Delivery Method Room Air 08/12/23 09:47 Airway Mallampati Class: I TM Dist: <=3cm Neck ROM: Full Loose/Missing/Broken Teeth: Yes (multiple broken teeth) Heart: S1S2 Lungs: CTAB Assessment and Plan Assessment Anesthesia Assessment: Anesthesia Plan Discussed and Chart Reviewed Final Anesthetic Review Family History of Problems with Anesthesia: No History of Problems with Anesthesia: No NPO: Yes ASA Class: III Final Preanesthetic Review: No Changes in Pt Med Stat, Meds/Allgs Chart Reviewed, Consent Obtained/Reviewed and Anes Risks/Benef Reviewed Patient Risk: Low Procedure Risk: Low Anesthetic Plan Anesthetic Plan: MAC: and Agree w/ Assess. and Plan Disposition: Standard PACU
[2023-08-12 10:42] LABS: Glucose, Whole Blood 160 mg/dL (60-115)
[2023-08-12 11:15] VITALS: BP 160/71; PULSE 90; RESP 16; TEMP 36.7; O2SAT 97
--- NOTE | 2023-08-12 11:18 | P.OP_ITS ---
Operative Note Operative Note Date of Service: 08/12/23 Narrative: Preop diagnosis: myositis Postop diagnosis: myositis Procedure: Muscle biopsy, left biceps Surgeon: Dami Raza MD The patient is a 47F referred for muscle biopsy of the biopsy due to persistent weakness, suggestive of myositis. She understood the technique of the planned procedure as well as the risks, benefits and alternatives. She was brought to the OR and placed on the table under MAC. The left arm was ab ducted for exposure. The area of the left biceps was prepped and draped. A surgical timeout was done. I infiltrated the planned line of incision with Lidocaine 1%. I made the incision on the skin using a blade 15 longitudinally. This was carried with electrocautery through the full thickness of the skin and subcutaneous fat. The biceps fascia was exposed. This was inflitrated again with Lidocaine 1%. I made an incision on the fascia longitudinally with a blade 15. I did blunt dissection to expose biceps muscle fibers. I isolated a 1.5 cm long band of biceps and this was clamped with hemostats proximal and distal. This segment of muscle was divided and positioned into the muscle clamp. I cuaterized the divided edges of muscle. I irrigated and observed for hemostasis. Once hemostasis was cconfirmed, I reapposed the fascia with Polysorb 2-0 interrputed sutures. Skin close was achieved with Nylon 3-0 full thickness simple interrputed sutures. I infiltrated the area with Marcaine .5% for postop analgesia. Dressings were applied and the procedure was completed. She tolerated the procedure well. Estimated blood loss was about 5 cm. Initial and final counts of sponges and instruments were correct. The patient was then transferred to the PACU with stable VS.
[2023-08-12 11:30] VITALS: BP 166/87; PULSE 89; RESP 18; O2SAT 98
[2023-08-12 11:45] VITALS: BP 169/85; PULSE 83; RESP 18; O2SAT 100
[2023-08-12] MEDS: ondansetron HCL 4 MG/2 ML VIAL IVPUSH (11:49)
[2023-08-12] MEDS: Ketorolac Tromethamine 30 MG/ML VIAL 15 MG IVPUSH (11:51)
[2023-08-12] MEDS: Acetaminophen 325 MG TABLET 650 MG PO (11:52)
[2023-08-12] MEDS: oxyCODONE HCl Immed Release 5 MG TABLET PO (11:52)
[2023-08-12 12:00] VITALS: BP 168/76; PULSE 84; RESP 18; TEMP 36.8; O2SAT 98
== END 2023-08-12 12:21 | disposition home or self-care (01) ==
PROVIDERS: PCP Internal Medicine; Visit Provider Surgery
PROC: (CPT 20205; principal; 2023-08-12 09:40)
DX: M60.9 Myositis, unspecified (principal); M62.81 Muscle weakness (generalized); G89.29 Other chronic pain; M79.7 Fibromyalgia; J45.909 Unspecified asthma, uncomplicated; E78.00 Pure hypercholesterolemia, unspecified; E11.9 Type 2 diabetes mellitus without complications; Z79.4 Long term (current) use of insulin; Z79.899 Other long term (current) drug therapy; Z88.2 Allergy status to sulfonamides; F17.210 Nicotine dependence, cigarettes, uncomplicated
CPT/HCPCS: 20205; 82947; 88300; 88305; 88313; 88319; 88348; J0665; J1885; J2250; J2405; J2704; J3010

== ENCOUNTER → 2023-08-12 08:55 | Outpatient (BNV) | payer MEDICAID, SELFPAY | PROVIDERS: PCP Internal Medicine; Visit Provider Surgery | DX: M60.9 Myositis, unspecified (principal) | CPT/HCPCS: 20205 ==

== ENCOUNTER 2023-08-24 13:10 | Outpatient (REF) | payer MEDICAID, SELFPAY | END 2023-08-24 13:11 | disposition home or self-care (01) | LOC: HO.NEURO 13:10 | PROVIDERS: Absent Provider Nurse Practitioner Family; PCP Internal Medicine; Visit Provider Student in an Organized Health Care Education/Training Program | DX: R29.898 Other symptoms and signs involving the musculoskeletal system (principal); M60.9 Myositis, unspecified | CPT/HCPCS: 95886; 95912 ==

== ENCOUNTER 2023-08-25 11:12 | Outpatient (AMB) | payer MEDICAID, SELFPAY ==
--- NOTE | 2023-08-25 11:48 | MHC.OFFVIS ---
Intake Vital Signs 08/25/23 11:49 Height 5 ft 6 in Weight 177 lb 6 oz BMI 28.6 BP 160/78 H Blood Pressure Location Lt brachial Position Sitting Intake Visit Reasons: S/P Lt bicep muscle bx Intake Note: Patient is seen in office for post op assessment post left bicep muscle biopsy. Pt c/o: denies any concerns at the time of visit, sutures removed at visit Carbider Required: Yes Carbider Language: Front Desk Agent Name: Cindy BENJAMIN Information Interpreted: non-clinical & clinical Child Guidance Counselor: Child Guidance Counselor Present Accompanied by: Self / Same As Patient Allergies Sulfa (Sulfonamide Antibiotics) Allergy (Verified 08/25/23 11:51) Unknown HPI S/P Lt bicep muscle bx HPI Details She underwent muscle biopsy of the left biceps last 08/12/2023. She tolerated procedure well. She currently denies complaints at this time. [facility] Medical History Upper extremity weakness Myositis Chest pain Diabetes Asthma High cholesterol IDDM (insulin dependent diabetes mellitus) Surgical History History of esophagogastroduodenoscopy (EGD) Hx of colonoscopy H/O: hysterectomy H/O tubal ligation Social History Household Members: Family Alcohol intake: never Patient Tobacco Use Status: Current everyday Tobacco user Tobacco use type: Cigarette Cigarettes Per Day: 1 Review of Systems Const Denies chills and Denies fever(s) Card Denies chest pain, Denies dyspnea and Denies dyspnea on exertion Resp Denies cough, Denies dyspnea and Denies dyspnea on exertion GI Denies hematochezia and Denies change in bowel habits Denies hematuria Musc Denies back pain, Reports myalgias, Denies limited range of motion and Reports muscle weakness Neuro Denies focal weakness and Denies convulsions Psych Denies depression and Denies mood swings Physical Exam Vital Signs: Last Vital Signs BP 160/78 H 08/25/23 11:49 BMI result Body Mass Index 28.6 Const General: comfortable and no acute distress Resp Effort & Inspection: normal respiratory effort Extrem Other: Biopsy site on the left biceps well healed, sutures intact, no infection Assessment & Plan Assessment & Plan (1) Myositis: Code(s): M60.9 - Myositis, unspecified Qualifiers: Myositis type: other type Myositis location: upper extremity Plan: Status post biceps muscle biopsy. The biopsy site is well healed. I removed all her sutures I told her that her official report is not back yet. I will forward this to her emergency veterinary technician wants this is back. Coding Level of Care Code Global (85326) Diagnoses Myositis M60.9 Myositis type: other type Myositis location: upper extremity
[2023-08-25 11:49] VITALS: BP 160/78; BMI 28.6
== END 2023-08-25 11:50 | disposition home or self-care (01) ==
PROVIDERS: PCP Internal Medicine; Visit Provider Surgery
DX: M60.9 Myositis, unspecified (principal); Z48.02 Encounter for removal of sutures
CPT/HCPCS: 99212

== ENCOUNTER → 2023-08-25 11:12 | Outpatient (BNVA) | payer MEDICAID, SELFPAY | PROVIDERS: PCP Internal Medicine; Visit Provider Surgery | DX: M60.9 Myositis, unspecified (principal) | CPT/HCPCS: 99212 ==

== ENCOUNTER 2023-10-26 09:10 | Outpatient (AMB) | payer MEDICAID, SELFPAY ==
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
[2023-10-26 09:15] VITALS: BP 102/60; PULSE 97; TEMP 36.1; O2SAT 100; BMI 28.5
== END 2023-10-26 09:50 | disposition home or self-care (01) ==
LOC: HO.RHE 09:11
PROVIDERS: PCP Internal Medicine; Visit Provider Nurse Practitioner Family
DX: M60.9 Myositis, unspecified (principal); R29.898 Other symptoms and signs involving the musculoskeletal system
CPT/HCPCS: 99214

== ENCOUNTER → 2023-10-26 09:10 | Outpatient (BNVA) | payer MEDICAID, SELFPAY | PROVIDERS: PCP Internal Medicine; Visit Provider Nurse Practitioner Family | DX: M60.9 Myositis, unspecified (principal); R29.898 Other symptoms and signs involving the musculoskeletal system; E11.9 Type 2 diabetes mellitus without complications | CPT/HCPCS: 99212 ==

== ENCOUNTER 2023-11-24 11:24 | Outpatient (REF) | payer MEDICAID, SELFPAY ==
--- NOTE | ~2023-11-24 | US_ITS ---
EXAMINATION: US PELVIS CLINICAL INFORMATION: Follow-up left ovarian cyst. Status post hysterectomy. COMPARISON: CT abdomen and pelvis of January 04, 2023. TECHNIQUE: Ultrasound of the pelvis is performed using both transabdominal and transvaginal transducers along with Doppler. Transvaginal imaging is performed due to inadequate visualization transabdominally. FINDINGS: The uterus is surgically absent. Limited visualization due to bowel gas. Left ovary not visualized. Right ovary measures 3.3 x 1.3 x 1.3 cm, volume 2.9 mL. Echogenic focus within the right ovary is characteristic of a tiny calcification. A 0.7 x 0.8 x 0.8 cm cyst adjacent to the right ovary was not appreciated on prior exam. No significant free fluid. US/US pelvic and transvaginal IMPRESSION: 1. Uterus is surgically absent. 2. Left ovary not visualized. 3. Right ovary measures 3.3 cm. A 0.8 cm cyst adjacent to the right ovary was not appreciated on prior exam. 4. No significant free fluid.
[2023-11-24 13:22] LABS: Alanine Aminotransferase 20 U/L (0-31); Albumin Level 4.4 g/dL (3.5-5.0); Alkaline Phosphatase 87 U/L (39-117); Anion Gap 12 (12-20); Aspartate Amino Transferase 12 U/L (5-31); Bilirubin Total 0.2 mg/dL (0.0-1.0); Blood Urea Nitrogen 12 mg/dL (9-16); C Reactive Protein 1.12 mg/dL (< or = 0.50); Calcium 9.7 mg/dL (8.4-10.2); Carbon Dioxide 27 mmol/L (22-29); Chloride 101 mmol/L (96-108); Estimated Glomerular Filt Rate > 60; Glucose Random 162 mg/dL (60-115); Sodium 137 mmol/L (135-145); Total Protein 7.8 g/dL (6.5-8.0)
[2023-11-24 13:30] LABS: Erythrocyte Sedimentation Rate 7 MM/HR (0-20)
== END 2023-11-24 11:25 | disposition home or self-care (01) ==
LOC: HO.US 11:24
PROVIDERS: Absent Provider Nurse Practitioner Family; PCP Internal Medicine; Visit Provider Internal Medicine
DX: N83.202 Unspecified ovarian cyst, left side (principal); M60.9 Myositis, unspecified; R29.898 Other symptoms and signs involving the musculoskeletal system
CPT/HCPCS: 36415; 76830; 76856; 80053; 82550; 85652; 86140

== ENCOUNTER 2023-11-29 13:32 | Outpatient (AMB) | payer MEDICAID, SELFPAY ==
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
[2023-11-29 13:59] VITALS: BP 130/70; PULSE 99; O2SAT 97; BMI 29.1
== END 2023-11-29 14:23 | disposition home or self-care (01) ==
PROVIDERS: PCP Internal Medicine; Visit Provider Nurse Practitioner Family
DX: M60.9 Myositis, unspecified (principal); R29.898 Other symptoms and signs involving the musculoskeletal system
CPT/HCPCS: 99213

== ENCOUNTER → 2023-11-29 13:32 | Outpatient (BNVA) | payer MEDICAID, SELFPAY | PROVIDERS: PCP Internal Medicine; Visit Provider Nurse Practitioner Family | DX: M60.9 Myositis, unspecified (principal); R29.898 Other symptoms and signs involving the musculoskeletal system; E11.9 Type 2 diabetes mellitus without complications | CPT/HCPCS: 99212 ==

== ENCOUNTER 2023-12-14 13:25 | Outpatient (REF) | payer MEDICAID, SELFPAY ==
[2023-12-15 19:49] LABS: C. trachomatis RNA TMA NOT DETECTED (NOT DETECTED); N. gonorrhoeae RNA TMA NOT DETECTED (NOT DETECTED)
== END 2023-12-14 13:26 | disposition home or self-care (01) ==
LOC: HO.LNP 13:25
PROVIDERS: Visit Provider Internal Medicine
DX: Z01.419 Encounter for gynecological examination (general) (routine) without abnormal findings (principal)
CPT/HCPCS: 81513; 87491; 87591; 88142

== ENCOUNTER 2023-12-23 13:18 | Outpatient (REF) | payer MEDICAID, SELFPAY ==
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
--- NOTE | ~2023-12-23 | XR_ITS ---
EXAMINATION: XR cervical spine 2V CLINICAL INFORMATION: Pain COMPARISON: Cervical spine radiographs 06/29/2023 TECHNIQUE: 3 views of the cervical spine were obtained. FINDINGS: The cervical spine is visualized to the level of C6-C7 on the lateral view. Vertebral body alignment is maintained. Vertebral body heights are maintained. Mild multilevel degenerative disc disease similar to prior. Lateral masses of C1 are well aligned on C2. Visualized portion of the dens is intact. No prevertebral soft tissue swelling. XR/XR cervical spine 2V IMPRESSION: Mild multilevel degenerative disc disease similar to prior.
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
== END 2023-12-23 13:19 | disposition home or self-care (01) ==
LOC: HO.HHCX 13:18
PROVIDERS: Visit Provider Family Medicine
DX: M16.12 Unilateral primary osteoarthritis, left hip (principal); M51.16 Intervertebral disc disorders with radiculopathy, lumbar region; M50.10 Cervical disc disorder with radiculopathy, unspecified cervical region
CPT/HCPCS: 72040; 72110; 73502

== ENCOUNTER 2023-12-30 13:00 | Outpatient (REF) | payer MEDICAID, SELFPAY ==
--- NOTE | ~2023-12-30 | MM_ITS ---
EXAMINATION: MM SCREENING DIGITAL BREAST TOMOSYNTHESIS, BILATERAL CLINICAL INFORMATION: Screening. Asymptomatic. COMPARISON: Mammography: There are no prior mammograms for comparison. TECHNIQUE: Digital breast tomosynthesis is performed in both the craniocaudal and mediolateral oblique views along with computer-aided detection (CAD). Synthesized 2D images are generated from the tomosynthesis. FINDINGS: There are scattered areas of fibroglandular density (ACR BI-RADS breast composition Category b). There are multiple groups of faint calcification in the upper inner quadrant of the right breast at its deep third. Additional mammographic imaging with magnification of this region is advised. In the left breast, there are no significant masses, abnormal calcifications, or other abnormalities. MM/MM tomosynthesis screening BI IMPRESSION: Calcifications in the right breast warrant additional mammographic imaging with magnification. No mammographic signs of malignancy left breast. ASSESSMENT: BI-RADS BI-RADS 0 - Incomplete: Needs additional Imaging. RECOMMENDATION: Additional views of the right breast. Radiology department staff will contact the patient for additional imaging. Additional Imaging required This examination should not preclude the clinical evaluation of a suspicious palpable abnormality. This patient's information was entered into a reminder system with a target due date for their next mammogram.
== END 2023-12-30 13:01 | disposition home or self-care (01) ==
LOC: HO.MAMMO 13:00
PROVIDERS: PCP Internal Medicine; Visit Provider Internal Medicine
DX: Z12.31 Encounter for screening mammogram for malignant neoplasm of breast (principal)
CPT/HCPCS: 77063; 77067

== ENCOUNTER → 2023-12-30 13:15 | Outpatient (BNV) | payer MEDICAID, SELFPAY | PROVIDERS: PCP Internal Medicine; Visit Provider Radiology Diagnostic Radiology | DX: Z12.31 Encounter for screening mammogram for malignant neoplasm of breast (principal) | CPT/HCPCS: 77063; 77067 ==

== ENCOUNTER 2024-01-31 13:56 | Outpatient (REF) | payer MEDICAID, SELFPAY ==
[2024-01-31 15:33] LABS: MANUAL DIFF FLAG NO
[2024-01-31 16:14] LABS: Basophils Percent Auto 0.3 % (0-2); Eosinophils Absolute Auto 0.3 X10*3/uL (0.0-0.4); Hematocrit 42.2 % (37.0-47.0); Hemoglobin 14.3 g/dl (12.0-16.0); Imm Gran Abs Auto 0.05 X10*3/uL (0.00-0.03); Imm Gran Pct Auto 0.6 % (0.0-0.4); Lymphocytes Absolute Auto 3.6 X10*3/uL (1.2-4.9); Lymphocytes Percent Auto 40.2 % (20-40); Mean Corpuscular HGB Conc 33.9 g/dl (31.0-35.0); Mean Corpuscular Volume 91.3 fL (80.0-98.0); Mean Platelet Volume 10.4 fL (9.4-12.3); Monocytes Absolute Auto 0.5 X10*3/uL (0.1-1.2); Neutrophils Absolute Auto 4.5 x10*3/uL (2.0-8.3); Neutrophils Percent Auto 49.9 % (45-73); Platelet Count 349 X10*3/uL (160-400); Red Blood Count 4.62 X10*6/uL (4.20-5.50); Red Cell Distribution Width 13.3 % (11.0-16.0)
[2024-01-31 16:50] LABS: Alanine Aminotransferase 34 U/L (0-31); Albumin Level 4.1 g/dL (3.5-5.0); Alkaline Phosphatase 84 U/L (39-117); Anion Gap 14 (12-20); Aspartate Amino Transferase 25 U/L (5-31); Bilirubin Total 0.1 mg/dL (0.0-1.0); Blood Urea Nitrogen 13 mg/dL (9-16); C Reactive Protein 1.73 mg/dL (< or = 0.50); Calcium 9.3 mg/dL (8.4-10.2); Carbon Dioxide 27 mmol/L (22-29); Chloride 104 mmol/L (96-108); Estimated Glomerular Filt Rate > 60; Glucose Random 114 mg/dL (60-115); Potassium 3.3 mmol/L (3.3-5.1); Sodium 142 mmol/L (135-145); Total Protein 7.3 g/dL (6.5-8.0)
[2024-01-31 16:53] LABS: Erythrocyte Sedimentation Rate 8 MM/HR (0-20)
== END 2024-01-31 13:57 | disposition home or self-care (01) ==
LOC: HO.LAB 13:56
PROVIDERS: PCP Internal Medicine; Visit Provider Nurse Practitioner Family
DX: M60.822 Other myositis, left upper arm (principal); M79.7 Fibromyalgia; R29.898 Other symptoms and signs involving the musculoskeletal system; Z79.52 Long term (current) use of systemic steroids
CPT/HCPCS: 36415; 80053; 82550; 85025; 85652; 86140; 99212

== ENCOUNTER 2024-01-31 13:56 | Outpatient (AMB) | payer MEDICAID, SELFPAY ==
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
[2024-01-31 14:10] VITALS: BP 116/68; PULSE 94; O2SAT 96; BMI 30.2
== END 2024-01-31 14:55 | disposition home or self-care (01) ==
PROVIDERS: PCP Internal Medicine; Visit Provider Nurse Practitioner Family
DX: M60.9 Myositis, unspecified (principal); R29.898 Other symptoms and signs involving the musculoskeletal system; M60.822 Other myositis, left upper arm
CPT/HCPCS: 99214; G2211

== ENCOUNTER 2024-02-01 10:11 | Outpatient (AMB) | payer MEDICAID, SELFPAY ==
--- NOTE | 2024-02-01 10:39 | MHC.OFFVIS ---
Intake Visit Reasons: grade 2 cystocele with prolapse, urinary inc Intake Note: New patient is present for Grade 2 Cystocele with prolaspe Patient has urinary incontinence since of her son which is now 27 Senior Oracle Soa Developer Required: Yes Senior Oracle Soa Developer Language: German Allergies Sulfa (Sulfonamide Antibiotics) Allergy (Verified 03/22/24 10:42) Unknown HPI Comments Details: Lizet One Hysterectomy 2014 Previous evaluation in [place] with diagnosis of cystocele and stress incontinence Referred Dr. Henderson for pelvic exam and decision of prolapse repair versus isolated stress incontinence procedure [facility] Medical History (Updated 03/22/24 @ 11:30 by Duane Elliott MD) Upper extremity weakness Myositis Chest pain Diabetes Asthma High cholesterol IDDM (insulin dependent diabetes mellitus) Surgical History (Updated 03/22/24 @ 11:30 by Duane Elliott MD) History of esophagogastroduodenoscopy (EGD) Hx of colonoscopy H/O: hysterectomy H/O tubal ligation Social History Household Members: Family Alcohol intake: never Patient Tobacco Use Status: Current everyday Tobacco user Tobacco use type: Smokeless Tobacco Cigarettes Per Day: 1 Review of Systems Const Denies chills and Denies fever(s) Card Reports no additional complaints and Denies syncope Resp Denies cough GI Denies abdominal pain and Denies heartburn Reports as per HPI and Denies change in libido Neuro Denies syncope Psych Denies change in libido Endo Denies change in libido Physical Exam Const General: cooperative, healthy appearing, comfortable and no acute distress Orientation/consciousness: patient oriented x3 HEENT Face and sinus: Yes normal facial exam Mouth: moist mucous membranes Neck Neck: Yes normal visual inspection, Yes full ROM and Yes trachea midline Chest Chest palpation & inspection: normal inspection of the chest Resp Effort & Inspection: normal respiratory effort, able to speak in complete sentences and no respiratory distress GI Inspection: Yes normal to inspection Back/Spine/Pelvis Cervical Spine: normal cervical lordosis Thoracic/Lumbar Spine: thoracic and lumbar spine normal to inspection Skin General skin exam: no rashes or lesions noted Neuro General: patient oriented x3, gait normal, tone normal and moves all extremities Extrem General: Yes normal to inspection and Yes capillary refill normal Assessment & Plan Assessment & Plan (1) Female cystocele: Code(s): N81.10 - Cystocele, unspecified Category: Medical Plan Asses Dr Henderson Patient Instructions: Imaging studies, laboratory and physical exam results were discussed and reviewed in detail. No major barriers to patient understanding were identified. An opportunity to ask questions regarding the treatment plan was provided. All questions were answered. The patient expressed understanding and agreement with the above treatment plan. The patient is aware they should contact our office by phone for worsening of their current condition or the appearance of new urologic symptoms. Compliance is encouraged with any medications and followup testing that is ordered. It is a privilege to participate in the urologic care of your patient. If you have any questions or concerns regarding treatment for the above conditions, or other urologic issues, please do not hesitate to contact me. The office telephone contact is [phone]. This note is constructed using voice recognition software. While every effort has been made to ensure accuracy routeman errors may have been included. Yours sincerely, Dr Mukul Roland MD, DON[facility] - Urology Providers of Expert, Compassionate Care for the Genitourinary System Coding Level of Care Code New Pt Level 3 (61231) Diagnoses Female cystocele N81.10
== END 2024-02-01 11:20 | disposition home or self-care (01) ==
PROVIDERS: PCP Internal Medicine; Visit Provider Urology
DX: N81.10 Cystocele, unspecified (principal)
CPT/HCPCS: 99203

== ENCOUNTER → 2024-02-01 10:11 | Outpatient (BNVA) | payer MEDICAID, SELFPAY | PROVIDERS: PCP Internal Medicine; Visit Provider Urology | DX: N81.4 Uterovaginal prolapse, unspecified (principal) | CPT/HCPCS: 99202 ==

== ENCOUNTER 2024-02-09 13:18 | Outpatient (REF) | payer MEDICAID, SELFPAY ==
--- NOTE | ~2024-02-09 | MM_ITS ---
EXAMINATION: MM DIAGNOSTIC DIGITAL MAMMOGRAPHY, RIGHT CLINICAL INFORMATION: Follow-up is regional calcifications upper slightly inner right breast spanning middle and posterior depth. COMPARISON: Mammography: 12/30/2023 new baseline exam. Priors in [place] are not available. TECHNIQUE: Digital mammography is performed in the following views: 2-D spot magnification views right CC x2 and right ML x2. FINDINGS: There are scattered areas of fibroglandular density (ACR BI-RADS breast composition Category b). There are regional calcifications in the right breast spanning the mid and posterior upper slightly inner right breast, which have a somewhat indistinct/smudgy appearance on the CC projection, and many appear to layer on the 90 degree lateral projection, suggestive of milk of calcium. Findings are probably benign. Six-month interval follow-up recommended. Results are provided to the patient at time of visit by the technologist. MM/MM added views RT IMPRESSION: Probably benign calcifications in the upper inner right breast segmentally, many of which layer and are suggestive of milk of calcium. Six-month interval follow-up right breast mammography recommended to include standard magnification views. ASSESSMENT: BI-RADS BI-RADS 3 - Probably benign finding(s) - 6 month follow-up suggested RECOMMENDATION: 6 Month F/U This patient's information was entered into a reminder system with a target due date for their next mammogram.
== END 2024-02-09 13:19 | disposition home or self-care (01) ==
LOC: HO.MAMMO 13:18
PROVIDERS: PCP Internal Medicine; Visit Provider Internal Medicine
DX: R92.1 Mammographic calcification found on diagnostic imaging of breast (principal)
CPT/HCPCS: 77065

== ENCOUNTER → 2024-02-09 13:30 | Outpatient (BNV) | payer MEDICAID, SELFPAY | PROVIDERS: PCP Internal Medicine; Visit Provider Radiology Diagnostic Radiology | DX: R92.1 Mammographic calcification found on diagnostic imaging of breast (principal) | CPT/HCPCS: 77065 ==

== ENCOUNTER 2024-03-22 10:35 | Outpatient (AMB) | payer MEDICAID, SELFPAY ==
--- NOTE | 2024-03-22 10:41 | MHC.OFFVIS ---
Intake Visit Reasons: Pelvic exam/cystocele w/stress incontinence(SET) Intake Note: Patient is present for PELVIC EXAM/CYSTOCELE W/STRESS INCONTINENCE Urology Medication:NONE Antibiotic Allergy:SULFA Blood Thinner:NONE Call Center Operations Manager Required: Yes Call Center Operations Manager Language: Setswana Allergies Sulfa (Sulfonamide Antibiotics) Allergy (Verified 03/22/24 10:42) Unknown HPI Comments Details: 03/22/24--48 year old female with complaints of urinary incontinence associated with coughing and urinary urgency. Discussed further evaluation with urodynamics, and renal/bladder US. 02/01/24--One Hysterectomy 2014, Previous evaluation in [place] with diagnosis of cystocele and stress incontinence Referred Dr. Hernandez for pelvic exam and decision of prolapse repair versus isolated stress incontinence procedure [facility] Medical History (Updated 03/22/24 @ 11:30 by Duane Elliott MD) Upper extremity weakness Myositis Chest pain Diabetes Asthma High cholesterol IDDM (insulin dependent diabetes mellitus) Surgical History (Updated 03/22/24 @ 11:30 by Duane Elliott MD) History of esophagogastroduodenoscopy (EGD) Hx of colonoscopy H/O: hysterectomy H/O tubal ligation Social History Household Members: Family Alcohol intake: never Patient Tobacco Use Status: Current everyday Tobacco user Tobacco use type: Smokeless Tobacco Cigarettes Per Day: 1 Review of Systems Const All systems reviewed & are unremarkable except as noted in HPI and below Reports no additional complaints Eyes Reports no additional complaints ENT Reports no additional complaints Card Reports no additional complaints Resp Reports no additional complaints GI Reports no additional complaints Reports as per HPI Musc Reports no additional complaints Skin/Breast Reports system reviewed and no additional complaints, except as documented Neuro Reports no additional complaints Psych Reports no additional complaints Endo Reports no additional complaints Alonso/Lymph Reports no additional complaints Aller/Immun Reports no additional complaints Results AMB Urinalysis, Automated UA Leukoctes 0 Jamal/uL Last Edit by CARITO Carter on 03/22/24 10:53 UA Nitrite Negative Last Edit by CARITO Carter on 03/22/24 10:53 UA Urobilinogen 0.2 mg/dL Last Edit by CARITO Carter on 03/22/24 10:53 UA Protein 0 mg/dL Last Edit by CARITO Carter on 03/22/24 10:53 UA pH 5.5 Last Edit by CARITO Carter on 03/22/24 10:53 UA Blood 0 Reji/uL Last Edit by CARITO Carter on 03/22/24 10:53 UA Specific Ray 1.015 Last Edit by CARITO Carter on 03/22/24 10:53 UA Ketone Negative Last Edit by CARITO Carter on 03/22/24 10:53 UA Bilirubin 0 mg/dL Last Edit by CARITO Carter on 03/22/24 10:53 UA Glucose 1000 mg/dL Last Edit by CARITO Carter on 03/22/24 10:53 Results Reviewed Results Reviewed: Laboratory Last Values Urine pH (Auto) 5.5 03/22/24 10:53 Specific Ray (Auto) 1.015 03/22/24 10:53 Urine Protein (Auto) 0 mg/dL 03/22/24 10:53 Glucose (UA)(Auto) 1000 mg/dL 03/22/24 10:53 Urine Ketones (Auto) Negative 03/22/24 10:53 Urine Blood (Auto) 0 Reji/uL 03/22/24 10:53 Urine Nitrite (Auto) Negative 03/22/24 10:53 Urine Bilirubin (Auto) 0 mg/dL 03/22/24 10:53 Urine Urobilinogen (Auto) 0.2 mg/dL 03/22/24 10:53 Leukocyte Esterase (Auto) 0 Jamal/uL 03/22/24 10:53 Assessment & Plan Assessment & Plan (1) Urinary frequency: Code(s): R35.0 - Frequency of micturition Category: Medical (2) Female cystocele: Code(s): N81.10 - Cystocele, unspecified Category: Medical Plan urodynamics, renal/bladder US Orders: Orders AMB Urinalysis Automated 03/22/24 Z13.9 - Encounter for screening, unspecified US retroperitoneal comp 03/22/24 N81.10 - Cystocele, unspecified, R35.0 - Frequency of micturition, Z90.710 - Acquired absence of both cervix and uterus Patient Instructions: The patient had an opportunity to ask questions regarding treatment plan. The patient expressed understanding and agreement with the above treatment plan. The patient is aware they should contact our office by phone for worsening of their current condition or the appearance of new symptoms. Compliance is encouraged with any medications and followup testing that is ordered. It is a privilege to be allowed the opportunity to participate in the urologic care of your patient. If you have any questions or concerns regarding treatment for the above conditions please do not hesitate to contact me. The office telephone contact is [phone]. This note is constructed in part using voice recognition software. While every effort has been made to ensure accuracy environmental services technician errors may have been included. Yours sincerely, Duane Elliott MD Coding Level of Care Code Est Pt Level 3 (89602) Diagnoses Urinary frequency R35.0 Female cystocele N81.10
== END 2024-03-22 11:27 | disposition home or self-care (01) ==
PROVIDERS: PCP Internal Medicine; Visit Provider Urology
DX: R35.0 Frequency of micturition (principal); N81.10 Cystocele, unspecified
CPT/HCPCS: 99213

== ENCOUNTER → 2024-03-22 10:35 | Outpatient (BNVA) | payer MEDICAID, SELFPAY | PROVIDERS: PCP Internal Medicine; Visit Provider Urology | DX: R35.0 Frequency of micturition (principal); N81.10 Cystocele, unspecified | CPT/HCPCS: 81003; 99212 ==

== ENCOUNTER 2024-04-06 12:41 | Outpatient (REF) | payer MEDICAID, SELFPAY ==
--- NOTE | ~2024-04-06 | US_ITS ---
EXAMINATION: US RETROPERITONEAL COMPLETE (RENAL) CLINICAL INFORMATION: Cystocele. COMPARISON: None available. TECHNIQUE: Real-time imaging of the kidneys and bladder. FINDINGS: RIGHT KIDNEY: 13.5 x 5.3 x 5.5 cm (SAG x AP x TRV). The kidney is normal in size, contour, and echogenicity. Renal cortical thickness is normal. No calculi or focal parenchymal lesions. There is an extrarenal pelvis, without trudy hydronephrosis. LEFT KIDNEY: 13.5 x 5.9 x 4.6 cm (SAG x AP x TRV). The kidney is normal in size, contour, and echogenicity. Renal cortical thickness is normal. No calculi or focal parenchymal lesions. No hydronephrosis. At the interpolar aspect, a 4 mm benign, simple cyst is seen, for which no imaging follow-up is recommended. US/US renal BI IMPRESSION: Unremarkable ultrasound appearance of the bilateral kidneys. Imaging of the urinary bladder is not presently performed (patient not prepped at the time of the examination). Electronically signed by: Timothy Vides MD 04/23/2024 10:37 PM EDT
== END 2024-04-06 12:42 | disposition home or self-care (01) ==
LOC: HO.US 12:41
PROVIDERS: PCP Internal Medicine; Visit Provider Urology
DX: N81.10 Cystocele, unspecified (principal); R35.0 Frequency of micturition; Z90.710 Acquired absence of both cervix and uterus
CPT/HCPCS: 76775

== ENCOUNTER 2024-04-27 14:37 | Outpatient (REF) | payer MEDICAID, SELFPAY ==
--- NOTE | ~2024-04-27 | US_ITS ---
EXAMINATION: US PELVIS LIMITED (BLADDER) CLINICAL INFORMATION: Urinary frequency. COMPARISON: Ultrasound kidneys and bladder 04/06/2024. CT abdomen and pelvis 01/04/2023. TECHNIQUE: Real-time imaging of the bladder. FINDINGS: BLADDER: Well distended and normal. Bilateral ureteral jets are demonstrated. Prevoid bladder volume is 557 mL. Bladder was completely empty after voiding. US/US bladder IMPRESSION: Normal-appearing bladder. No postvoid residual detected. Electronically signed by: Luis A Alvarez MD 05/05/2024 12:36 PM EDT
== END 2024-04-27 14:38 | disposition home or self-care (01) ==
LOC: HO.US 14:37
PROVIDERS: PCP Internal Medicine; Visit Provider Urology
DX: N81.10 Cystocele, unspecified (principal); R35.0 Frequency of micturition; Z90.710 Acquired absence of both cervix and uterus
CPT/HCPCS: 76857

== ENCOUNTER 2024-05-01 09:54 | Outpatient (REF) | payer MEDICAID, SELFPAY | END 2024-05-01 09:55 | disposition home or self-care (01) | LOC: HO.LAB 09:54 | PROVIDERS: PCP Internal Medicine; Visit Provider Urology | DX: R35.0 Frequency of micturition (principal); N81.10 Cystocele, unspecified; R82.79 Other abnormal findings on microbiological examination of urine | CPT/HCPCS: 87086; 87147 ==

== ENCOUNTER 2024-05-01 12:16 | Emergency (ER) | payer MEDICAID, SELFPAY ==
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
[2024-05-01 12:24] VITALS: BP 130/78; PULSE 90; O2SAT 95
[2024-05-01 12:46] VITALS: BP 126/68; PULSE 88; RESP 16; TEMP 36.1; O2SAT 94; BMI 30.3
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
[2024-05-01] MEDS: oxyCODONE HCl Immed Release 5 MG TABLET PO (15:39)
[2024-05-01] MEDS: Butalb/Acetamin/Caff 50/325/40 TABLET 1 TAB PO (15:39)
[2024-05-01 16:16] VITALS: BP 126/68; PULSE 88; RESP 16; TEMP 36.1; O2SAT 94
== END 2024-05-01 16:16 | disposition home or self-care (01) ==
PROVIDERS: Emergency Provider Emergency Medicine Emergency Medical Services; PCP Internal Medicine
DX: Z04.1 Encounter for examination and observation following transport accident (principal); R51.9 Headache, unspecified; E11.9 Type 2 diabetes mellitus without complications; E78.5 Hyperlipidemia, unspecified; J45.909 Unspecified asthma, uncomplicated; F17.200 Nicotine dependence, unspecified, uncomplicated
CPT/HCPCS: 70450; 72100; 72125; 99283; 99284

== ENCOUNTER 2024-05-11 08:13 | Outpatient (AMB) | payer MEDICAID, SELFPAY ==
--- NOTE | 2024-05-11 08:28 | MHC.OFFVIS ---
Intake Visit Reasons: Urodynamics/US Intake Note: Patient is present for urodynamics/US Urology Medication:MACROBID Antibiotic Allergy:SULFA Blood Thinner:NONE Evp And Chief Operating Officer Required: Yes Evp And Chief Operating Officer Services: Evp And Chief Operating Officer Present Evp And Chief Operating Officer Name: Flor [id number] Allergies Sulfa (Sulfonamide Antibiotics) Allergy (Verified 05/11/24 08:36) Unknown Medication List - Last Reconciled 05/11/24 by Duane Elliott MD amitriptyline 75 mg PO DAILY bupropion HCl XL 300 mg PO QAM clonazepam 2 mg PO TID cyclobenzaprine 10 mg PO TID PRN empagliflozin (Jardiance) 25 mg PO QAM gabapentin 800 mg PO TID insulin degludec (Tresiba FlexTouch U-100 insulin) 72 units subcut QPM insulin lispro protamin-lispro 100 unit/mL (50-50) (Humalog Mix 50-50 Insuln U-100) 12 units subcut TID lidocaine 5% 1 patch topical DAILY losartan-hydrochlorothiazide 50-12.5 mg 1 tab PO DAILY oxycodone-acetaminophen 5-325 mg 1 tab PO Q6H PRN pantoprazole 40 mg PO QAM quetiapine 200 mg PO DAILY topiramate 50 mg PO BID tramadol 50 mg PO Q6H PRN trazodone 150 mg PO BEDTIME HPI Comments Details: 05/11/24--Lizet is here for urodynamics. CMG parameters detailed below. The patient has complaints of urinary incontinence. Interpretation: During the filling phase there was normal sensation, sensory urgency was observed. The patient felt that she was at capacity at 310 mL, she was unable to void with the catheters in place and voided 605 mL once catheters were removed. (the patient states she took her diuretic med this morning. Leakage was observed during valsalva. Findings consistent with ISD. EMG- Appropriate changes in the waveforms were noted through out the study. There was a decrease in the EMG activity during the voiding c/w normal function of the pelvic floor. I have discussed the risks of bulking injection to the proximal urethra to include but not limited to urine retention requiring a melo catheter, need to repeat the procedure, hematuria, and urgency. Review of chart: 03/22/24--48 year old female with complaints of urinary incontinence associated with coughing and urinary urgency. Discussed further evaluation with urodynamics, and renal/bladder US. 02/01/24--One Hysterectomy 2014, Previous evaluation in [place] with diagnosis of cystocele and stress incontinence Referred Dr. Hernandez for pelvic exam and decision of prolapse repair versus isolated stress incontinence procedure [facility] Medical History Upper extremity weakness Myositis Chest pain Diabetes Asthma High cholesterol IDDM (insulin dependent diabetes mellitus) Surgical History History of esophagogastroduodenoscopy (EGD) Hx of colonoscopy H/O: hysterectomy H/O tubal ligation Social History Household Members: Family Alcohol intake: never Patient Tobacco Use Status: Current everyday Tobacco user Tobacco use type: Smokeless Tobacco Cigarettes Per Day: 1 Review of Systems Const All systems reviewed & are unremarkable except as noted in HPI and below Reports no additional complaints Eyes Reports no additional complaints ENT Reports no additional complaints Card Reports no additional complaints Resp Reports no additional complaints GI Reports no additional complaints Reports as per HPI Musc Reports no additional complaints Skin/Breast Reports system reviewed and no additional complaints, except as documented Neuro Reports no additional complaints Psych Reports no additional complaints Endo Reports no additional complaints Alonso/Lymph Reports no additional complaints Aller/Immun Reports no additional complaints Office Procedures Urodynamic Studies Consent Discussed risk and benefit or proposed procedure with the patient. Information consent for procedure given to the patient. Discussed technical aspects, risks, benefits and alternatives in full. Addressed all of the patient's questions and concerns regarding the procedure. The patient demonstrated knowledge and understanding. They wish to proceed with this procedure. Preparation The patient was prepped in the usual manner. A booth supervisor was present and in the room. Genitalia was prepped with betadine solution in a sterile manner. Procedure Complex Uroflow Complex uroflow performed by: Duane Elliott Maximum urinary flow rate (mL/second): 17 Voiding time (seconds): 41 Voided volume (mL): 364 Residual urine (mL): 0 Cystometrogram Vaginal/rectal catheter type: vaginal First sensation at (mL): 57 mL First desire at (mL): 204 mL Strong desire to void occured at (mL): 310 mL Strong desire detrussor pressure (cm H2O): 4.3 Maximum fill (mL): 383 mL Prep: 98284-Pzmiojgggpvoml w/ DIRECTOR SOCIAL SERVICE 03846-Dygazjw-Yvoigiiqslme First 07040-Cjpo/Urinary Muscle Study 09746-Fjwzx-Ziobwcitt Pressure Test Procedure code (CPT) selection complete Office Meds nitrofurantoin monohydrate/macrocrystals 100 mg capsule Performing Provider: Duane Elliott MD [facility] Administered by: Tanmay Dailey LPN on 05/11/24 08:42 Dose Route Admin Location Dispensed Lot Number Expiration Date NDC Drawing Kiln Supervisor 100 mg PO 1 cap Assessment & Plan Assessment & Plan (1) Intrinsic sphincter deficiency (ISD): Code(s): N36.42 - Intrinsic sphincter deficiency (ISD) Category: Medical (2) Urinary incontinence: Code(s): R32 - Unspecified urinary incontinence Category: Medical Plan Bulkamid urethral bulking procedure Orders: Orders AMB Urodynamics Studies Today N81.10 - Cystocele, unspecified, R35.0 - Frequency of micturition Patient Instructions: The patient had an opportunity to ask questions regarding treatment plan. The patient expressed understanding and agreement with the above treatment plan. The patient is aware they should contact our office by phone for worsening of their current condition or the appearance of new symptoms. Compliance is encouraged with any medications and followup testing that is ordered. It is a privilege to be allowed the opportunity to participate in the urologic care of your patient. If you have any questions or concerns regarding treatment for the above conditions please do not hesitate to contact me. The office telephone contact is [phone]. This note is constructed in part using voice recognition software. While every effort has been made to ensure accuracy disaster recovery specialist errors may have been included. Yours sincerely, Duane Elliott MD Coding Level of Care Code Est Pt Level 3 (11792) Diagnoses Intrinsic sphincter deficiency (ISD) N36.42 Urinary incontinence R32 CPT Codes Urodynamic Studies - CPT: 60946-Avfbjexwyzfgyn w/ DIRECTOR SOCIAL SERVICE ([id number]) Urodynamic Studies - CPT: 89742-Gordlzr-Mfeexddyyios First ([id number]) Urodynamic Studies - CPT: 80196-Vzja/Urinary Muscle Study ([id number]) Urodynamic Studies - CPT: 11408-Eqmut-Oynmeskap Pressure Test ([id number])
== END 2024-05-11 10:20 | disposition home or self-care (01) ==
PROVIDERS: PCP Internal Medicine; Referring Provider Internal Medicine; Visit Provider Urology
DX: R35.0 Frequency of micturition (principal); N81.10 Cystocele, unspecified; N36.42 Intrinsic sphincter deficiency (ISD); R32 Unspecified urinary incontinence
CPT/HCPCS: 51728; 51741; 51784; 51797; 99213

== ENCOUNTER → 2024-05-11 08:13 | Outpatient (BNVA) | payer MEDICAID, SELFPAY | PROVIDERS: PCP Internal Medicine; Visit Provider Urology | DX: N36.42 Intrinsic sphincter deficiency (ISD) (principal); R32 Unspecified urinary incontinence; N81.10 Cystocele, unspecified; R35.0 Frequency of micturition | CPT/HCPCS: 51728; 51741; 51784; 51797; 99212 ==

== ENCOUNTER 2024-05-22 06:59 | Day surgery (SDC) | payer MEDICAID, SELFPAY ==
[2024-05-18 13:44] VITALS: BMI 29.5
--- NOTE | 2024-05-21 10:32 | HO.ANESPROP2 ---
Documented by User: Livia Duron NP 05/21/24 10:33 HPI - Anesthesia Eval Consult details Narrative: 48yo F for Cystoscopy with Bulkamid s/p muscle bx 07/2023 with MAC (negative for significant histopathologic changes) Anesthesia Pre-Procedure Meds Is the patient on any of the following meds?: SGLT2 Inhib PMFSH Active Problems Active Problems: All Active Problems Urinary incontinence (Acute) Intrinsic sphincter deficiency (ISD) (Acute) H/O: hysterectomy (Acute) Urinary frequency (Acute) Female cystocele (Acute) IDDM (insulin dependent diabetes mellitus) (Acute) Upper extremity weakness (Acute) Myositis (Acute) Chronic GERD (Acute) Chronic pain (Acute) Fibromyalgia (Acute) Bloating (Acute) Encounter for screening colonoscopy (Acute) Dysphagia (Acute) Diabetes (Acute) Past Medical History Medical History Upper extremity weakness Myositis Chest pain Diabetes Asthma High cholesterol IDDM (insulin dependent diabetes mellitus) Family History Family history of problems with anesthesia: No Surgical History Surgical History History of esophagogastroduodenoscopy (EGD) Hx of colonoscopy H/O: hysterectomy H/O tubal ligation History of Problems with Anesthesia: No Social History Social History Household Members: Family Are you a primary physician assistant primary care to a significant other at home: No Do you presently have visiting nurse or other home services: No Alcohol intake: never Patient Tobacco Use Status: Current someday Tobacco user Tobacco use type: Smokeless Tobacco Cigarettes Per Day: 1 Second Hand Smoke Exposure: No Use of substances other than those prescribed or required for medical reasons: No Have you been hit, kicked, punched, or otherwise hurt by someone within the past year? If so, by whom?: No Are you DNR?: No Advance Directives: No Advance Directives Information Provided: Yes Advance Directives on File: No Recently lost weight without trying: No Eating poorly because of decreased appetite: No Nutrition Risks: No Nutritional Risk Patient : No : No Poor oral hygiene: No Meds Allergies Allergy/AdvReac Type Severity Reaction Status Date / Time Sulfa (Sulfonamide Allergy Unknown Verified 05/11/24 08:36 Antibiotics) Home Medications ?Medication ?Instructions ?Recorded ?Confirmed ?Last Taken ?Type clonazepam 2 mg tablet 2 mg PO TID 02/16/23 05/22/24 05/22/24 History losartan 50 mg-hydrochlorothiazide 1 tab PO DAILY 02/16/23 05/22/24 08/11/23 History 12.5 mg tablet topiramate 50 mg tablet 50 mg PO BID 07/27/23 05/22/24 05/22/24 History insulin lispro protamine-lispro 12 unit subcut TID 08/12/23 05/22/24 08/12/23 07:00 History 100 unit/mL (50-50) subcutaneous 6 units susp (Humalog Mix 50-50 Insuln U-100) empagliflozin 25 mg tablet 25 mg PO QAM 11/29/23 05/22/24 Unknown History (Jardiance) insulin degludec 100 unit/mL (3 72 unit subcut QPM 11/29/23 05/22/24 Unknown History mL) subcutaneous pen (Tresiba FlexTouch U-100 insulin) oxycodone-acetaminophen 5 mg-325 1 tab PO Q6H PRN severe pain 11/29/23 05/22/24 Unknown History mg tablet Exam Height,Weight and Vital Signs: Height 5 ft 6 in Weight 82.781 kg Assessment and Plan Assessment Anesthesia Assessment: Chart Reviewed Final Anesthetic Review Family History of Problems with Anesthesia: No History of Problems with Anesthesia: No Documented by User: Alexis Tatum MD 05/22/24 08:34 [facility] Past Medical History Medical History Upper extremity weakness Myositis Chest pain Diabetes Asthma High cholesterol IDDM (insulin dependent diabetes mellitus) Surgical History Surgical History History of esophagogastroduodenoscopy (EGD) Hx of colonoscopy H/O: hysterectomy H/O tubal ligation Social History Social History Household Members: Family Are you a primary physician assistant primary care to a significant other at home: No Do you presently have visiting nurse or other home services: No Alcohol intake: never Patient Tobacco Use Status: Current someday Tobacco user Tobacco use type: Smokeless Tobacco Cigarettes Per Day: 1 Second Hand Smoke Exposure: No Use of substances other than those prescribed or required for medical reasons: No Have you been hit, kicked, punched, or otherwise hurt by someone within the past year? If so, by whom?: No Are you DNR?: No Advance Directives: No Advance Directives Information Provided: Yes Advance Directives on File: No Recently lost weight without trying: No Eating poorly because of decreased appetite: No Nutrition Risks: No Nutritional Risk Patient : No : No Poor oral hygiene: No Meds Allergies Allergy/AdvReac Type Severity Reaction Status Date / Time Sulfa (Sulfonamide Allergy Unknown Verified 05/11/24 08:36 Antibiotics) Home Medications ?Medication ?Instructions ?Recorded ?Confirmed ?Last Taken ?Type clonazepam 2 mg tablet 2 mg PO TID 02/16/23 05/22/24 05/22/24 History losartan 50 mg-hydrochlorothiazide 1 tab PO DAILY 02/16/23 05/22/24 08/11/23 History 12.5 mg tablet topiramate 50 mg tablet 50 mg PO BID 07/27/23 05/22/24 05/22/24 History insulin lispro protamine-lispro 12 unit subcut TID 08/12/23 05/22/24 08/12/23 07:00 History 100 unit/mL (50-50) subcutaneous 6 units susp (Humalog Mix 50-50 Insuln U-100) empagliflozin 25 mg tablet 25 mg PO QAM 11/29/23 05/22/24 Unknown History (Jardiance) insulin degludec 100 unit/mL (3 72 unit subcut QPM 11/29/23 05/22/24 Unknown History mL) subcutaneous pen (Tresiba FlexTouch U-100 insulin) oxycodone-acetaminophen 5 mg-325 1 tab PO Q6H PRN severe pain 11/29/23 05/22/24 Unknown History mg tablet Exam Airway Mallampati Class: II TM Dist: <=3cm Neck ROM: Full Denture: Lower Partial: Upper Loose/Missing/Broken Teeth: Yes, Upper and Lower Heart: ok Lungs: ok Assessment and Plan Assessment Anesthesia Assessment: Anesthesia Plan Discussed Final Anesthetic Review NPO: Yes ASA Class: III Final Preanesthetic Review: No Changes in Pt Med Stat, Meds/Allgs Chart Reviewed, Consent Obtained/Reviewed and Anes Risks/Benef Reviewed Patient Risk: Intermediate Procedure Risk: Low Anesthetic Plan Anesthetic Plan: GA and Agree w/ Assess. and Plan Disposition: Standard PACU
[2024-05-22] VITALS (7 sets, daily range): BP systolic 117–151; BP diastolic 61–112; PULSE 80–99; RESP 16; TEMP 36.8–36.9; O2SAT 94–99
[2024-05-22 07:57] LABS: Glucose, Whole Blood 317 mg/dL (60-115)
[2024-05-22] MEDS: Lactated Ringers 1,000 ML 100 ML IVCONT (08:03)
--- NOTE | 2024-05-22 08:07 | PC.NURSE ---
Addendum entered by Chinedu Butler, RN 05/22/24 08:32: Dr. Tatum at bedside, orders received for 12 units Insulin Lispro Subcutaneous and administered. Report given to PACU nurse to recheck POC post procedure. Original Note: patient POC 317. Jardiance stopped 5 days ago, patient did not take insulin yesterday. Dr. Tatum and Dr. Elliott notified.
--- NOTE | 2024-05-22 08:24 | MHC.SHP ---
Pre-Procedural Eval Section A - 24 Hr Update-Section A only Date of Service: 05/22/24 The patient is an INPATIENT: No The patient has been examined within 24 hours of the surgical procedure. The History & Physical has been completed within 30 days and I have reviewed it.: Yes Section B - Complete if H&P > 30 days Chief Complaint: Intrinsic sphincter deficiency (ISD) Allergies: Allergies Allergy/AdvReac Type Severity Reaction Status Date / Time Sulfa (Sulfonamide Allergy Unknown Verified 05/11/24 08:36 Antibiotics) Plan Diagnosis/Plan: Unchanged I have reviewed the history and physical and performed a pertinent physical examination on my patient. No changes have occurred unless specified. Cystoscopy Bulkamid urethral bulking procedure. I have discussed the risks of bulking injection to the proximal urethra to include but not limited to urine retention requiring a melo catheter, need to repeat the procedure, hematuria, and urgency. Time Spent With Patient Time: Total time managing care of this patient today ____ minutes.
[2024-05-22] MEDS: Insulin Lispro 100 UNIT/ML 3 ML VIAL 12 UNIT SUBCUT (08:30)
--- NOTE | 2024-05-22 09:37 | W.PM.OPN ---
Operative Note Operative Note Date of Service: 05/22/24 Narrative: Preop diagnosis: Intrinsic sphincter deficiency Postop diagnosis: Intrinsic sphincter deficiency Procedure: Cystoscopy urethral bulking with bulkamid system at the proximal urethra Surgeon: Dr. Duane Elliott Details of procedure: The patient was brought into the operating room placed on the OR table in supine position IV sedation was administered. Antibiotics confirmed. The patient was placed in lithotomy position prepped and draped in the usual sterile fashion. Safety time-out was done. Pelvic examination under anesthesia noted a grade 1-2 cystocele. A 14 [place] straight catheter was used to send urine for culture. 2% lidocaine jelly was inserted transurethrally 10 mL. Using the 0 degree 11 cm cystoscope with the light cord in the 6 o'clock position, the bladder was visualized, the trigone was in a dependent position due to the cystocele, gauze was placed vaginally. The bladder was filled with sterile water to 150 mL. With the sheath at the 5 o'clock position the needle was inserted to the 1 cm kilo and 0.5 mL of gel was injected there was good bulking noted. This was repeated on the 7 o'clock position. The 2nd needle was inserted into the sheath and an injection was done at the 2 o'clock position and again at the 11 o'clock position. There was bulking of the mucosa noted with good coaptation. The gauzed was removed. The patient tolerated the procedure and was taken to recovery in stable condition. Complication: none Drains: none
[2024-05-22] MEDS: Phenazopyridine HCL 200 MG TABLET PO (09:45)
[2024-05-22] MEDS: Acetaminophen 325 MG TABLET 650 MG PO (09:46)
[2024-05-22 10:03] LABS: Glucose, Whole Blood 249 mg/dL (60-115)
== END 2024-05-22 11:06 | disposition home or self-care (01) ==
PROVIDERS: PCP Internal Medicine; Visit Provider Urology
PROC: (CPT 51715; principal; 2024-05-22 08:30)
DX: N36.42 Intrinsic sphincter deficiency (ISD) (principal); R32 Unspecified urinary incontinence; R39.15 Urgency of urination; R35.0 Frequency of micturition; E11.9 Type 2 diabetes mellitus without complications; J45.909 Unspecified asthma, uncomplicated; E78.00 Pure hypercholesterolemia, unspecified; Z79.4 Long term (current) use of insulin; Z79.84 Long term (current) use of oral hypoglycemic drugs; Z79.899 Other long term (current) drug therapy; Z90.710 Acquired absence of both cervix and uterus; F17.210 Nicotine dependence, cigarettes, uncomplicated
CPT/HCPCS: 51715; 82947; 87086; J0690; J2704; J3010; L8606

== ENCOUNTER → 2024-05-22 06:59 | Outpatient (BNV) | payer MEDICAID, SELFPAY | PROVIDERS: PCP Internal Medicine; Visit Provider Urology | DX: N36.42 Intrinsic sphincter deficiency (ISD) (principal) | CPT/HCPCS: 51715 ==

== ENCOUNTER 2024-05-24 12:50 | Outpatient (AMB) | payer MEDICAID, SELFPAY ==
--- NOTE | 2024-05-24 13:38 | AM.OFFVISNUR ---
Intake Visit Reasons: PVR (Bulkamid) Allergies Sulfa (Sulfonamide Antibiotics) Allergy (Verified 05/11/24 08:36) Unknown Office Procedures Post Void Residual Post Residual Void Details: patient presents to office for PVR s/p bulkamid procedure. Patient reporting not feeling she is emptying her bladder fully and it hurts to use bathroom. Patient provided urine sample, bladder scanned for 126mls. UA showed elevated glucose and dehydration. Educated patient that she is dehydrated which could be the cause of her discomfort when urinating, and the elevated glucose in her urine is also irritating. Patient stated she understood. Patient to keep follow up with Dr. Hernandez as scheduled, patient agreeable. Post Void Residual (PVR): 126 [id number]-[id number] Void Residual by ultrasound Results AMB Urinalysis, Automated UA Leukoctes 0 Jamal/uL Last Edit by Tanmay Dailey LPN on 05/24/24 13:54 UA Nitrite Negative Last Edit by Tanmay Dailey LPN on 05/24/24 13:54 UA Urobilinogen 0.2 mg/dL Last Edit by Tanmay Dailey LPN on 05/24/24 13:54 UA Protein 0 mg/dL Last Edit by Tanmay Dailey LPN on 05/24/24 13:54 UA pH 5.5 Last Edit by Tanmay Dailey LPN on 05/24/24 13:54 UA Blood 0 Reji/uL Last Edit by Tanmay Dailey LPN on 05/24/24 13:54 UA Specific [place] 1.015 Last Edit by Tanmay Dailey LPN on 05/24/24 13:54 UA Ketone Negative Last Edit by Tanmay Dailey LPN on 05/24/24 13:54 UA Bilirubin 0 mg/dL Last Edit by Tanmay Dailey LPN on 05/24/24 13:54 UA Glucose 1000 mg/dL Last Edit by Tanmay Dailey LPN on 05/24/24 13:54 Assessment & Plan Assessment & Plan Orders: Orders AMB Post Void Residual by ultrasound Today N36.42 - Intrinsic sphincter deficiency (ISD), N81.10 - Cystocele, unspecified, R32 - Unspecified urinary incontinence, R35.0 - Frequency of micturition AMB Urinalysis Automated Today N36.42 - Intrinsic sphincter deficiency (ISD), N81.10 - Cystocele, unspecified, R32 - Unspecified urinary incontinence, R35.0 - Frequency of micturition
== END 2024-05-24 14:05 | disposition home or self-care (01) ==
PROVIDERS: PCP Internal Medicine; Referring Provider Internal Medicine; Visit Provider Urology
DX: R32 Unspecified urinary incontinence (principal); N36.42 Intrinsic sphincter deficiency (ISD); R35.0 Frequency of micturition; N81.10 Cystocele, unspecified

== ENCOUNTER → 2024-05-24 12:50 | Outpatient (BNVA) | payer MEDICAID, SELFPAY | PROVIDERS: PCP Internal Medicine; Visit Provider Urology | DX: N36.42 Intrinsic sphincter deficiency (ISD) (principal); N81.10 Cystocele, unspecified; R35.0 Frequency of micturition; R32 Unspecified urinary incontinence | CPT/HCPCS: 51798; 81003 ==

== ENCOUNTER 2024-08-31 14:07 | Outpatient (REF) | payer MEDICAID, SELFPAY ==
[2024-08-31 16:31] LABS: Alanine Aminotransferase 63 U/L (0-31); Albumin Level 4.4 g/dL (3.5-5.0); Alkaline Phosphatase 94 U/L (39-117); Anion Gap 11 (12-20); Aspartate Amino Transferase 38 U/L (5-31); Bilirubin Total 0.2 mg/dL (0.0-1.0); Blood Urea Nitrogen 13 mg/dL (9-16); Calcium 9.4 mg/dL (8.4-10.2); Carbon Dioxide 24 mmol/L (22-29); Chloride 107 mmol/L (96-108); Cholesterol 228 mg/dL (<200); Estimated Glomerular Filt Rate > 60; Glucose Random 153 mg/dL (60-115); HDL Cholesterol 41 mg/dL (>40); Potassium 3.8 mmol/L (3.3-5.1); Sodium 138 mmol/L (135-145); Triglycerides 606 mg/dL (<150)
[2024-08-31 16:32] LABS: Creatinine Urine 31.14 mg/dL; Microalbumin Urine < 5.0 mg/L
[2024-08-31 17:41] LABS: Reflex LDLD? No
[2024-09-03 09:19] LABS: TS Negative Control Passed; TS Panel A 1; TS Panel B 0; TS Positive Control Passed; TSpotTB Negative (Negative)
== END 2024-08-31 14:08 | disposition home or self-care (01) ==
LOC: HO.HHCL 14:07
PROVIDERS: Visit Provider Internal Medicine
DX: Z00.00 Encounter for general adult medical examination without abnormal findings (principal); E11.65 Type 2 diabetes mellitus with hyperglycemia; Z79.4 Long term (current) use of insulin; Z11.1 Encounter for screening for respiratory tuberculosis
CPT/HCPCS: 36415; 80053; 80061; 82306; 82570; 86481

== ENCOUNTER 2024-09-04 11:01 | Outpatient (REF) | payer MEDICAID, SELFPAY ==
--- NOTE | ~2024-09-04 | MM_ITS ---
EXAMINATION: MM DIAGNOSTIC DIGITAL MAMMOGRAPHY, RIGHT CLINICAL INFORMATION: 6 month follow-up for right calcifications. COMPARISON: Mammography: Comparison is made with available prior examinations. TECHNIQUE: Digital mammography is performed in craniocaudal and mediolateral oblique views along with computer-aided detection (CAD). FINDINGS: The breasts are heterogeneously dense, which may obscure small masses (ACR BI-RADS breast composition Category c). There are faint scattered punctate calcifications in the upper inner breast posterior depth. These are not significantly changed from prior 6 months ago magnification views. No suspicious masses or other abnormal findings. Results are provided to the patient at time of visit by the technologist. MM/MM diagnostic mammo unilat RT IMPRESSION: Grouped calcifications in the right breast are not significantly changed from prior magnification view 6 months ago. Recommend six-month follow-up with magnification views on the patient is due for bilateral mammography. ASSESSMENT: BI-RADS BI-RADS 3 - Probably benign finding(s) - 6 month follow-up suggested RECOMMENDATION: 6 Month F/U This patient's information was entered into a reminder system with a target due date for their next mammogram. Electronically signed by: Winifred Perez DO 09/04/2024 11:55 AM EST
== END 2024-09-04 11:02 | disposition home or self-care (01) ==
LOC: HO.MAMMO 11:01
PROVIDERS: PCP Internal Medicine; Visit Provider Internal Medicine
DX: R92.1 Mammographic calcification found on diagnostic imaging of breast (principal); R92.331 Mammographic heterogeneous density, right breast
CPT/HCPCS: 77062; 77065

== ENCOUNTER → 2024-09-04 11:15 | Outpatient (BNV) | payer MEDICAID, SELFPAY | PROVIDERS: PCP Internal Medicine; Visit Provider Internal Medicine | DX: R92.1 Mammographic calcification found on diagnostic imaging of breast (principal) | CPT/HCPCS: 77065 ==

== ENCOUNTER 2024-09-05 14:48 | Outpatient (AMB) | payer MEDICAID, SELFPAY ==
--- NOTE | 2024-09-05 14:52 | A.OFFVIS_ITS ---
Vital Signs 09/05/24 14:59 Height 5 ft 6 in Weight 194 lb 14.218 oz BMI 31.5 BP 115/64 Blood Pressure Location Lt brachial Position Sitting Respiration 16 Pulse 93 Pulse Source Pulse Oximeter Pulse Oximetry (%) 94 Oxygen Delivery Method Room Air Intake Visit Reasons: Myositis Intake Note: Patient presents for Myositis. Manufacturing Operator Required: Yes Manufacturing Operator Language: Renal Medicine Specialist Services: Manufacturing Operator Present Manufacturing Operator Name: Bebeto [id number] Information Interpreted: non-clinical & clinical Allergies Sulfa (Sulfonamide Antibiotics) Allergy (Verified 09/05/24 14:58) Unknown Medication List - Last Reconciled 09/05/24 by Erin Regan MD amitriptyline 75 mg PO DAILY bupropion HCl XL 300 mg PO QAM clonazepam 2 mg PO TID cyclobenzaprine 10 mg PO TID PRN doxycycline hyclate 100 mg PO BID 5 days empagliflozin (Jardiance) 25 mg PO QAM gabapentin 800 mg PO TID insulin degludec (Tresiba FlexTouch U-100 insulin) 72 units subcut QPM insulin lispro protamin-lispro 100 unit/mL (50-50) (Humalog Mix 50-50 Insuln U- 100) 12 units subcut TID lidocaine 5% 1 patch topical DAILY losartan-hydrochlorothiazide 50-12.5 mg 1 tab PO DAILY oxycodone-acetaminophen 5-325 mg 1 tab PO Q6H PRN pantoprazole 40 mg PO QAM phenazopyridine (Pyridium) 200 mg PO BID 3 days quetiapine 200 mg PO DAILY topiramate 50 mg PO BID tramadol 50 mg PO Q6H PRN trazodone 150 mg PO BEDTIME HPI Comments Details: Patient is a 48-year-old female with history of cervical cancer, migraines, asthma, depression, diabetes, fibromyalgia and hypertension who presents today for follow up Interval History: Patient last seen 01/31/2024 with Mckenzie Jimenez. At that time the plan was to slowly taper the prednisolone to off. Patient reports that she did not notice any change while being on prednisone Today patient is complaining of similar upper extremity pain and weakness. Rheumatologic History: Patient initially presented 07/27/2023 for the evaluation of upper extremity pain, elevated CRP and elevated CPK. Evaluation including left biceps muscle biopsy and EMG did not show any evidence of for a myopathic process. There was evidence of lymphoplasmacytic infiltrate in the epimysium which could be consistent with polymyositis. She was started on a prednisone taper. She was lost to follow up due to changes in providers Current Rheumatology Medication(s): Gabapentin 800 mg p.o. t.i.d. (given by primary) Cyclobenzaprine 10 mg p.o. t.i.d. (given by primary) Amitriptyline 75 mg p.o. daily (given by primary) [facility] Medical History Upper extremity weakness Myositis Chest pain Diabetes Asthma High cholesterol IDDM (insulin dependent diabetes mellitus) Surgical History History of esophagogastroduodenoscopy (EGD) Hx of colonoscopy H/O: hysterectomy H/O tubal ligation Social History Household Members: Family Are you a primary home health care respiratory therapist to a significant other at home: No Do you presently have visiting nurse or other home services: No Alcohol intake: never Patient Tobacco Use Status: Current someday Tobacco user Tobacco use type: Smokeless Tobacco Cigarettes Per Day: 1 Second Hand Smoke Exposure: No Review of Systems Const Details: Review of Systems Constitutional: Denies fever, chills, weight loss ENT: Denies vision changes, eye pain or eye redness, dental caries, dry mouth GI: Denies nausea, vomiting, diarrhea, abdominal pain, change in BM Pulm: Denies SOB, HERNANDEZ, hemoptysis, wheezing Cards: Denies chest pain, palpitations Skin: Denies Raynaud's, rash, nail changes, photosensitivity, NEGATIVE RETOUCHER: Denies headaches, weakness, paresthesias, recurrent falls MSK: as per HPI All other systems reviewed and are unremarkable except noted above Physical Exam Vital signs reviewed Physical Examination CONSTITUITIONAL Patient alert and cooperative. Well appearing and in no apparent painful distress HEENT Conjunctiva and sclera clear. ?Pupils equal round and reactive to light. ?No lymphadenopathy. ? CHEST/RESPIRATORY SYSTEM Normal respiratory effort and able to speak in complete sentences. ?Clear to auscultation bilaterally. ?No crackles, rales, rhonchi, wheezes heard. CARDIAC SYSTEM Regular rate and rhythm. ?S1 and S2 heard no murmurs. ?Radial pulses intact bilaterally MSK Poor laborer pipeline strength to bilateral hands. Upper body muscle strength 4+ out of 5 Patient able to rise from a seated position without assistance but this was associated with discomfort. No evidence of synovitis Positive fibromyalgia tender points throughout. SKIN Skin intact without rashes. Results Reviewed Results Reviewed: Laboratory Tests 06/29/23 07/27/23 01/31/24 12:21 11:05 15:31 WBC 9.0 RBC 4.62 Hgb 14.3 Hct 42.2 Plt Count 349 ESR 8 Sodium Potassium Chloride Carbon Dioxide BUN Creatinine Calcium Total Bilirubin AST ALT Alkaline Phosphatase Total Creatine Kinase 590 H C-Reactive Protein 1.73 H 25-OH Vitamin D Total Rheumatoid Factor < 13.0 Cycl Citrul Peptide IgG <16 INGRID Screen NEGATIVE KALI-1 Antibody <11 EJ Antibody <11 OJ Antibody <11 Mi-2-Alpha Ab <11 Mi-2-Beta Ab <11 NXP-2 Ab <11 PL-7 Antibody <11 PL-12 Antibody <11 SRP Ab <11 MDA5 Ab <11 Myos P155/140 TIF1-g Ab <11 SS-A/Ro Antibody <1.0 NEG SS-B/La Antibody <1.0 NEG Sm (Armstrong) Antibody <1.0 NEG SM/ANESTHESIOLOGIST ASSISTANT CERTIFIED IgG Antibody <1.0 NEG Scl-70 Scleroderma Ab <1.0 NEG HMGCR IgG Antibody <2 NT5C1A IgG Antibody <5 08/31/24 14:09 WBC RBC Hgb Hct Plt Count ESR Sodium 138 Potassium 3.8 Chloride 107 Carbon Dioxide 24 BUN 13 Creatinine 0.71 Calcium 9.4 Total Bilirubin 0.2 AST 38 H ALT 63 H Alkaline Phosphatase 94 Total Creatine Kinase C-Reactive Protein 25-OH Vitamin D Total 99.0 Rheumatoid Factor Cycl Citrul Peptide IgG INGRID Screen KALI-1 Antibody EJ Antibody OJ Antibody Mi-2-Alpha Ab Mi-2-Beta Ab NXP-[address]-12 Antibody SRP Ab MDA5 Ab Myos P155/140 TIF1-g Ab SS-A/Ro Antibody SS-B/La Antibody Sm (Armstrong) Antibody SM/ANESTHESIOLOGIST ASSISTANT CERTIFIED IgG Antibody Scl-70 Scleroderma Ab HMGCR IgG Antibody NT5C1A IgG Antibody Assessment & Plan Assessment & Plan (1) Fibromyalgia: Code(s): M79.7 - Fibromyalgia Category: Medical Plan: #Fibromyalgia I reviewed the patient's chart thoroughly including her EMGs, the muscle biopsy, and the labs. At this time I really have a very low suspicion for polymyositis in this patient. She had an EMG that did not show any myopathic process. I will say I did see the pathology mention some lymphoplasmacytic infiltrate in the epimysium but overall it was not definitive. Furthermore her exam is more consistent with fibromyalgia than polymyositis. Her antibodies have been normal. I think moving forward this patient should be managed as fibromyalgia. If things continue to develop or there is a change in her overall presentation we can revisit the diagnosis. No further steroids. Ideally if this patient were to have polymyositis she would need to be on immunosuppression such as methotrexate or mycophenolate. For now we will do physical therapy. Patient currently gets her fibromyalgia medications from her primary. I think it is reasonable to see this patient again in 6 months and re-evaluate. We will get labs prior to the next visit. Plan - Physical therapy - No further prednisone - RTC 6 months Plan I spent 30 minutes reviewing the record and labs, taking a history, examining the patient, discussing the treatment plan and documenting in the medical record Orders: Orders PT Evaluation and Treatment Today M79.7 - Fibromyalgia Complete Blood Count Auto Diff 6 Months M60.822 - Other myositis, left upper arm, M79.7 - Fibromyalgia Comprehensive Met. Panel 6 Months M60.822 - Other myositis, left upper arm, M79.7 - Fibromyalgia C Reactive Protein 6 Months M60.822 - Other myositis, left upper arm, M79.7 - Fibromyalgia Creatine Kinase Total 6 Months M60.822 - Other myositis, left upper arm, M79.7 - Fibromyalgia Erythrocyte Sedimentation Rate 6 Months M60.822 - Other myositis, left upper arm, M79.7 - Fibromyalgia Aldolase 6 Months M60.822 - Other myositis, left upper arm, M79.7 - Fibromyalgia Medications: Discontinued tramadol Discontinued Reason: Doctor's Order 50 mg PO Q6H PRN 10 tabs 1RF pain Coding Level of Care Code Est Pt Level 3 (94514) Diagnoses Fibromyalgia M79.7
[2024-09-05 14:59] VITALS: BP 115/64; PULSE 93; RESP 16; O2SAT 94; BMI 31.5
== END 2024-09-05 15:36 | disposition home or self-care (01) ==
PROVIDERS: PCP Internal Medicine; Visit Provider Student in an Organized Health Care Education/Training Program
DX: M79.7 Fibromyalgia (principal)
CPT/HCPCS: 99213

== ENCOUNTER → 2024-09-05 14:48 | Outpatient (BNVA) | payer MEDICAID, SELFPAY | PROVIDERS: PCP Internal Medicine; Visit Provider Student in an Organized Health Care Education/Training Program | DX: M79.7 Fibromyalgia (principal); M60.822 Other myositis, left upper arm | CPT/HCPCS: 99212 ==

== ENCOUNTER 2024-10-04 08:05 | Outpatient (REF) | payer MEDICAID, SELFPAY ==
--- OUTSIDE RECORDS SUMMARY | 2024-10-04 08:08 | XMS_ITS | Encounter Summary ---
Author Organization [employer] Address [address] [facility] 7t [place] [address] Care Team Providers Care Nursing Faculty Name Role Phone Cheryl Fitzpatrick MD Primary Care Provider + Nick Castellanos Unavailable Unavailable Reason for Visit * Reason Onset Date Comments PT1 03/15/2024 Encounter Details Date Type Department Care Team ([facility] st Contact Info) Description 03/15/2024 Telephone [facility] [address] [place], [place] [phone] Cheryl Fitzpatrick MD [address] [place], [place] [phone] PT1 Social History Tobacco Use Types Packs/Day Years Used Date Smoking Tobacco: Former Cigarettes Q uit: 12/20/2022 Passive Smoke Exposure: Current Smokeless Tobacco: Never Comments:Pt is vaping Alcohol Use Standard Drinks/Week Comments Never 0 (1 standard drink = 0.6 oz pur e alcohol) Depression Answer Date Recorded Patient Health Questionnaire-9 Score 10 01/31/2024 Patient Health Questionnaire-9 Score 10 01/31/2024 Last PHQ-9: Questionnaire Data Not on file 0 01/31/2024 Housing Stability Answer Date Recorded What is your housing situation today? I do not have housing (Staying with others, in a hotel, in a retirement, living outside on the street, on a beach, in a car, or in a park 05/31/[address] you li ve. Do you have problems with any of the following? None of the above 05/31/2023 Food Insecurity Answer Date Recorded Within the past 12 months, y ou worried that your food would run out before you got money to buy more: Never True 06/07/2023 Within the past 12 months,th e food you bought just didn't last and you didn't have enough money to get more: Never True Transportation Answer Date Recorded In the past 12 months, has l ack of transportation kept you from medical appts, meetings, work or from getting things needed for daily living? Yes, it has kept me from medical appointments or getting medications. 11/01/2023 Utilities Answer Date Recorded In the past 12 months, has t he electric, gas, oil or water company threatened to shut off services in your home? No 06/07/2023 Depression Answer Date Recorded Patient Health Questionnaire-2 Score 2 01/31/2024 Comments No Sex and Gender Information Value Date Recorded Sex Assigned at Female 06/21/2022 10:37 AM EDT Legal Sex Female 10:37 AM EDT Gender Identity Female 06/21/2022 10:37 AM EDT Sexual Orientation Straight 06/21/2022 10 :37 AM EDT documented as of this encounter Miscellaneous Notes * Telephone Encounter - Jackelyn Berman - 03/15/2024 10:45 AM EDT Patient calling requesting PT1 Home Address verified: Y/N: Yes pt states is homeless and is currently at [address] [place] [id number] Provider name or facility name: [facility] physical therapy Facility Address: [address] [place] [id number] Escort needed: Y/N: No Do you have a wheelchair: Y/N: No If yes- Manual or electric: no Visits: 5-6 visit a month documented in this encounter Plan of Treatment Upcoming Encounters Date Type Department Care Team (Late st Contact Info) Description 10/09/2024 1:00 PM EST Office Visit [facility] [address] [place] [address] Cheryl Fitzpatrick MD [address] [place] [address] 10/17/2024 2:30 PM EST Office Visit [facility] ADULT DENTAL [address] [place] [address] Hema Hill DDS [address] [place] [address] 01/17/2025 1:00 PM EDT Office Visit [facility] OPTOMET[facility] [address] [place] [address] Salena Garcia OD [address] [place] [address] documented as of this encounter Goals Goal Patient Goal Type Associated Problems Recent Progress Patient-Stated? Author Blood Pressure < 140/90 Blood Pressure 128/80(2024 3:30 PM EST) No Piers-Gambl eFaysa, PharmD Hemoglobin A1c < 7 Result Component 8.3( 10:54 AM EST) No Yongs-Gambl Kenzie diaz, PharmD documented as of this encounter Visit Diagnoses Not on filedocumented in this encounter Additional Health Concerns Assessment Noted Time PHQ-9 Depression Total Score: 10 024 10:01 AM EDT documented as of this encounter Care Teams Nursing Faculty Relationship Specialty Start Date End Date Cheryl Fitzpatrick MD [address] [place] [address] PCP - General Internal Medicine 09/10/22 Nick Castellanos FNP [address] [place] [address] Nurse Practitioner Family Medicine 07/04/23 Apolonia Mars urgent care Traffic Court RefereeMetal Bonding Assembler 11/16/23 documented as of this encounter
--- OUTSIDE RECORDS SUMMARY | 2024-10-04 08:09 | XMS_ITS | Encounter Summary ---
Author Organization [employer] Address [address] [facility] 7t [place] [address] Care Team Providers Care Health Promoter Name Role Phone Cheryl Fitzpatrick MD Primary Care Provider + Nick Castellanos Unavailable Unavailable Reason for Visit * Reason Comments Med Refill Encounter Details Date Type Department Care Team (Late st Contact Info) Description 09/19/2024 Refill [facility] [address] [place], [place] [phone] Cheryl Fitzpatrick MD [address] [place], [place] [phone] Migraine with aura and without status migrainosus, not intractable; Anxiety Social History Tobacco Use Types Packs/Day Years [...] Answer Date Recorded What is your housing situati on today? I do not have housing (Staying with others, in a hotel, in a fdc, living outside on the street, on a beach, in a car, or in a park 07/18/[address] you li ve. Do you have problems with any of the following? Inadequate heat 07/18/2024 Food Insecurity Answer Date Recorded Within the past 12 months, y ou worried that your food would run out before you got money to buy more: Sometimes True 2023 Within the past 12 months,th e food you bought just didn't last and you didn't have enough money to get more: Sometimes True 07/18/2024 Transportation Answer Date Recorded In the past 12 months, has l ack of transportation kept you from medical appts, meetings, work or from getting things needed for daily living? No 07/18/2024 Utilities Answer Date Recorded In the past 12 months, has t he electric, gas, oil or water company threatened to shut off services in your home? No 06/07/2023 Depression Answer Date Recorded Patient Health Questionnaire-2 Score 2 01/31/2024 Internet Access Answer Date Recorded Internet Access Q1 Yes 07/18/2024 Internet Access Q2 Not on file 07/18/2024 Comments No Sex and Gender Information Value Date Recorded Sex Assigned at Female 06/21/2022 10:37 AM EDT Legal Sex Female 10:37 AM EDT Gender Identity Female 06/21/2022 10:37 AM EDT Sexual Orientation Straight 06/21/2022 10 :37 AM EDT documented as of this encounter Plan of Treatment Upcoming Encounters Date Type Department Care Team (Late st Contact Info) Description 10/09/2024 1:00 PM EST Office Visit [facility] [address] [place] [address] Cheryl Fitzpatrick MD [address] [place] [address] 10/17/2024 2:30 PM EST Office Visit [facility] ADULT DENTAL [address] [place] [address] Hema Hill DDS [address] [place] [address] 01/17/2025 1:00 PM EDT Office Visit [facility] OPTOMETRY [address] [place] [address] Salena Garcia, OD [address] [place] [address] documented as of this encounter Goals Goal Patient Goal Type Associated Problems Recent Progress Patient-Stated? Author Blood Pressure < 140/90 Blood Pressure 128/80(2024 3:30 PM EST) No Piers-GambKenzie rudolph, PharmD Hemoglobin A1c < 7 Result Component 8.3( 10:54 AM EST) No Piers-Gambl Kenzie diaz, PharmD documented as of this encounter Visit Diagnoses Diagnosis Migraine with aura and without status migrainosus, not intractable Anxiety Anxiety state, unspecified documented in this encounter Additional Health Concerns Assessment Noted Time PHQ-9 Depression Total Score: 10 024 10:01 AM EDT documented as of this encounter Care Teams Health Promoter Relationship Specialty Start Date End Date Cheryl Fitzpatrick MD [address] [place] [address] PCP - General Internal Medicine 09/10/22 Nick Castellanos FNP [address] [place] [address] Nurse Practitioner Family Medicine 07/04/23 Apolonia Mars certified social workers in health care Cottrell OperatorStave Mill Hand 11/16/23 documented as of this encounter
--- OUTSIDE RECORDS SUMMARY | 2024-10-04 08:09 | XMS_ITS | Encounter Summary ---
Author Organization [employer] Address [address] [facility] 7t [place] [address] Care Team Providers Care Head Of English Name Role Phone Cheryl Fitzpatrick MD Primary Care Provider + Edu Leung PharmD Unavailable Nick Castellanos MAILING MANAGER Unavailable Unavailable Reason for Visit * Reason Comments Med Refill Encounter Details Date Type Department Care Team (Late st Contact Info) Description 12/18/2022 Refill [facility] [place] [address] [place] [address] Marybel Webster MD [address] [place], [place] [phone] Social History Tobacco Use Types Packs/Day Years Used Date Smoking Tobacco: Every Day Cigarettes Smokeless Tobacco: Never Comments:Patient is ready t quit smoking with counciling Alcohol Use Standard Drinks/Week Comments Never 0 (1 standard drink = 0.6 oz pur e alcohol) PHQ-2 Answer Date Recorded Patient Health Questionnaire-2 Score 4 11/15/2022 Comments No Sex and Gender Information Value Date Recorded Sex Assigned at Female 06/21/2022 10:37 AM EDT Legal Sex Female 10:37 AM EDT Gender Identity Female 06/21/2022 10:37 AM EDT Sexual Orientation Straight 06/21/2022 10 :37 AM EDT COVID-19 Exposure Response Date Recorded In the last 10 days, have yo u been in contact with someone who was confirmed or suspected to have Coronavirus/COVID-19? No / Unsure 12/21/2022 8:53 AM EDT documented as of this encounter Plan of Treatment Upcoming Encounters Date Type Department Care Team (Late st Contact Info) Description 10/09/2024 1:00 PM EST Office Visit [facility] MEDICINE [address] [place] [address] Cheryl Fitzpatrick MD [address] [place] [address] 10/17/2024 2:30 PM EST Office Visit [facility] ADULT DENTAL [address] [place] [address] Hema Hill DDS [address] [place] [address] 01/17/2025 1:00 PM EDT Office Visit [facility] OPTOMETRY [address] [place] [address] Salena Garcia OD [address] [place] [address] documented as of this encounter Visit Diagnoses Not on filedocumented in this encounter Additional Health Concerns Assessment Noted Time PHQ-9 Depression Total Score: 9 11/16/19 23 10:11 AM EDT documented as of this encounter Care Teams Head Of English Relationship Specialty Start Date End Date Cheryl Fitzpatrick MD [address] [place] [phone] PCP - General Internal Medicine 09/10/22 Edu Leung, HudsonD [address] [place] [address] Pharmacist Internal Medicine 06/14/23 06/28/23 Nick Castellanos FNP [address] [facility] [place] [address] Nurse Practitioner Family Medicine 07/04/23 [address] Shay Nurse Practitioner Manager 11/11/23 02/10/24 Apolonia Mars wound care specialist Nurse Practitioner ManagerMachine Sprayer 11/16/23 documented as of this encounter
--- OUTSIDE RECORDS SUMMARY | 2024-10-04 08:09 | XMS_ITS | Encounter Summary ---
Author Organization [employer] Address [address] [facility] [address] [place] [address] Care Team Providers Care Refrigerating Machine Operator Name Role Phone Cheryl Fitzpatrick MD Primary Care Provider + Nick Castellanos Unavailable Unavailable Reason for Visit * Reason Comments Med Refill Encounter Details Date Type Department Care Team (Late st Contact Info) Description 09/08/2024 Refill [facility] [address] [place] [phone] Cheryl Fitzpatrick MD [address] [place], [place] [phone] Type 2 diabetes mellitus with hyperglycemia, with long-term current use of insulin ([facility]); Anxiety Social History Tobacco Use Types Packs/Day [...] Description 10/09/2024 1:00 PM EST Office Visit [facility] [address] [place] [address] Cheryl Fitzpatrick MD [address] [place] [address] 10/17/2024 2:30 PM EST Office Visit [facility] [address] [place] [address] Hema Hill DDS [address] [place] [address] 01/17/2025 1:00 PM EDT Office Visit [facility] [address] [place] [address] Salena Garcia, OD [address] [place] [address] documented as of this encounter Goals Goal Patient Goal Type Associated Problems Recent Progress Patient-Stated? Author Blood Pressure < 140/90 Blood Pressure 128/80(2024 3:30 PM EST) No Kenzie Tran PharmD Hemoglobin A1c < 7 Result Component 8.3( 10:54 AM EST) No Kenzie Tran PharmD documented as of this encounter Visit Diagnoses Diagnosis Type 2 diabetes mellitus with hyperglycemia, with long-term current use of insulin ([facility]) Anxiety Anxiety state, unspecified documented in this encounter Additional Health Concerns Assessment Noted Time PHQ-9 Depression Total Score: 10 024 10:01 AM EDT documented as of this encounter Care Teams Refrigerating Machine Operator Relationship Specialty Start Date End Date Cheryl Fitzpatrick MD [address] [place] [address] PCP - General Internal Medicine 09/10/22 Nick Castellanos FNP [address] [place] [address] Nurse Practitioner Family Medicine 07/04/23 Apolonia Mars child care centre manager Recruitment InternshipCredit Card Control Clerk 11/16/23 documented as of this encounter
--- OUTSIDE RECORDS SUMMARY | 2024-10-04 08:09 | XMS_ITS | Encounter Summary ---
Author Organization [employer] Address [address] [facility] [address] [place] [address] Care Team Providers Care B And B Gang Worker Name Role Phone Cheryl Fitzpatrick MD Primary Care Provider + Nick Castellanos Unavailable Unavailable Reason for Visit * Reason Comments Med Refill Encounter Details Date Type Department Care Team (Late st Contact Info) Description 09/24/2024 Refill [facility] [address] [place], [place] [phone] Cheryl Fitzpatrick MD [address] [place], [place] [phone] Anxiety; Migraine with aura and without status migrainosus, not intractable Social History Tobacco Use Types Packs/Day Years [...] with others, in a hotel, in a nursing home, living outside on the street, on a [...] Description 10/09/2024 1:00 PM EST Office Visit [facility] [address] [place] [address] Cheryl Fitzpatrick MD [address] [place] [address] 10/17/2024 2:30 PM EST Office Visit [facility] ADULT DENTAL [address] [place] [address] Hema Hill DDS [address] [place] [address] 01/17/2025 1:00 PM EDT Office Visit [facility] OPTOMETRY [address] [place] [address] Salena Garcia, OD [address] [place] [address] documented as of this encounter Goals Goal Patient Goal Type Associated Problems Recent Progress Patient-Stated? Author Blood Pressure < 140/90 Blood Pressure 128/80(2024 3:30 PM EST) No Piers-Gambl eKenzie, PharmD Hemoglobin A1c < 7 Result Component 8.3( 10:54 AM EST) No Piers-Gambl eKenzie, PharmD documented as of this encounter Visit Diagnoses Diagnosis Anxiety Anxiety state, unspecified Migraine with aura and without status migrainosus, not intractable documented in this encounter Additional Health Concerns Assessment Noted Time PHQ-9 Depression Total Score: 10 024 10:01 AM EDT documented as of this encounter Care Teams B And B Gang Worker Relationship Specialty Start Date End Date Cheryl Fitzpatrick MD [address] [place] [address] PCP - General Internal Medicine 09/10/22 Nick Castellanos FNP [address] [place] [address] Nurse Practitioner Family Medicine 07/04/23 Apolonia Mars medicare sales representative Information Systems AuditorPluck Separator 11/16/23 documented as of this encounter
--- OUTSIDE RECORDS SUMMARY | 2024-10-04 08:09 | XMS_ITS | Encounter Summary ---
Author Organization [employer] Address [address] [facility] 7t [place] [address] Care Team Providers Care Acoustic Sensor Operator Name Role Phone Cheryl Fitzpatrick MD Primary Care Provider + Nick Castellanos Unavailable Unavailable Encounter Details Date Type Department Care Team (Late st Contact Info) Description 09/11/[address] [facility] MEDICINE [address] [place], [place] [phone] Cheryl Fitzpatrick MD [address] [place], [place] [phone] Social History Tobacco Use Types Packs/Day Years [...] with others, in a hotel, in a detention, living outside on the street, on a [...] Description 10/09/2024 1:00 PM EST Office Visit [facility] MEDICINE [address] [place] [address] Cheryl Fitzpatrick MD [address] [place] [address] 10/17/2024 2:30 PM EST Office Visit [facility] ADULT DENTAL [address] [place] [address] Hema Hill DDS [address] [place] [address] 01/17/2025 1:00 PM EDT Office Visit [facility] OPTOMETRY [address] [place] [address] Salena Garcia, OD [address] [place] [address] documented as of this encounter Goals Goal Patient Goal Type Associated Problems Recent Progress Patient-Stated? Author Blood Pressure < 140/90 Blood Pressure 128/80(2024 3:30 PM EST) No Piers-Gambl e, Kenzie, PharmD Hemoglobin A1c < 7 Result Component 8.3( 10:54 AM EST) No Piers-Gambl e, Kenzie, PharmD documented as of this encounter Visit Diagnoses Not on filedocumented in this encounter Additional Health Concerns Assessment Noted Time PHQ-9 Depression Total Score: 10 024 10:01 AM EDT documented as of this encounter Care Teams Acoustic Sensor Operator Relationship Specialty Start Date End Date Cheryl Fitzpatrick MD [address] [place] [address] PCP - General Internal Medicine 09/10/22 Nick Castellanos FNP [address] [place] [address] Nurse Practitioner Family Medicine 07/04/23 Apolonia Mars healthcare or medical Redevelopment SpecialistAutomotive Diagnostic Technician 11/16/23 documented as of this encounter
--- OUTSIDE RECORDS SUMMARY | 2024-10-04 08:09 | XMS_ITS | Encounter Summary ---
Author Organization [employer] Address [address] [facility] 7t [place] [address] Care Team Providers Care Application Spec Name Role Phone Cheryl Fitzpatrick MD Primary Care Provider + Nick Castellanos Unavailable Unavailable Reason for Visit * Reason Onset Date Comments PT-1 04/16/2024 Encounter Details Date Type Department Care Team (Late st Contact Info) Description 04/16/2024 Telephone [facility] MEDICINE [address] [place], [place] [phone] Cheryl Fitzpatrick MD 230 [place], [place] [phone] PT-1 Social History Tobacco Use Types Packs/Day Years [...] with others, in a hotel, in a assisted, living outside on the street, on a [...] encounter Miscellaneous Notes * Telephone Encounter - Chas Sun - 04/16/2024 10:08 AM EDT Patient calling requesting PT1 Home Address verified: Y/N: Yes Provider name or facility name: [facility] [place] [address] Facility Address: [address] [place] [address] [facility] Y/N: No Do you have a wheelchair: Y/N: No If yes- Manual or electric: no Visits 6 documented in this encounter Plan of Treatment Upcoming Encounters Date Type Department Care Team (Late st Contact Info) Description 10/09/2024 1:00 PM EST Office Visit [facility] MEDICINE [address] [place] [address] Cheryl Fitzpatrick MD [address] [place] [address] 10/17/2024 2:30 PM EST Office Visit [facility] ADULT DENTAL [address] [place] [address] Hema Hill DDS [address] [place] [address] 01/17/2025 1:00 PM EDT Office Visit [facility] OPTOMETRY [address] [place] [address] Salena Garcia OD [address] [place] [address] documented as of this encounter Goals Goal Patient Goal Type Associated Problems Recent Progress Patient-Stated? Author Blood Pressure < 140/90 Blood Pressure 128/80(2024 3:30 PM EST) No Kenzie Tran, PharmD Hemoglobin A1c < 7 Result Component 8.3( 10:54 AM EST) No Kenzie Tran, PharmD documented as of this encounter Visit Diagnoses Not on filedocumented in this encounter Additional Health Concerns Assessment Noted Time PHQ-9 Depression Total Score: 10 024 10:01 AM EDT documented as of this encounter Care Teams Application Spec Relationship Specialty Start Date End Date Cheryl Fitzpatrick MD [address] [place] [address] PCP - General Internal Medicine 09/10/22 Nick Castellanos FNP [address] [place] [address] Nurse Practitioner Family Medicine 07/04/23 Apolonia Mars career development consultant Feltmaker And WeigherEggs Inspector 11/16/23 documented as of this encounter
--- OUTSIDE RECORDS SUMMARY | 2024-10-04 08:09 | XMS_ITS | Encounter Summary ---
Author Organization [facility] Address [address] [place] [address] Care Team Providers Care Perinatal Breastfeeding Assistant Name Role Phone Unavailable Primary Care Provider Unavailabl e Reason for Visit * Reason Comments Follow Up Encounter Details Date Type Department Care Team (Latest Contact Info) Description 09/27/2024 11:00 AM EST Behavioral Health Visit [facility] [address] [place] [phone] Alannah Shaw APRN [address] [facility] [place] [address] Major depressive disorder, recurrent episode, severe with mood-congruent psychotic features (HCC-CMS) (Primary Dx); Generalized anxiety disorder Social History Tobacco Use Types Packs/Day Years Used Date Smoking Tobacco: Former Cigarettes Alcohol Use Standard Drinks/Week Comments Not Currently 0 (1 standard drink = 0.6 oz pur e alcohol) Social Connections Answer Date Recorded Connectedness 0 05/03/2024 Financial Resource Strain Answer Date R ecorded Financial Resource Strain 0 2023 Stress Answer Date Recorded Stress 0 03/27/2024 Physical Activity Answer Date Recorded Physical Activity 0 03/27/2024 Food Insecurity Answer Date Recorded Food 0 05/17/2024 Transportation Needs Answer Date Record ed Transportation 0 03/27/2024 Housing Stability Answer Date Recorded Housing 0 03/27/2024 Safety and Environment Answer Date Andrae rded Safety 0 03/27/2024 Utilities Answer Date Recorded Utilities 0 03/27/2024 Employment Answer Date Recorded Stress 0 05/03/2024 Comments Unknown Sex and Gender Information Value Date Recorded Sex Assigned at Not on file Legal Sex Female 10:59 AM PDT Gender Identity Not on file Sexual Orientation Not on file documented as of this encounter Progress Notes * Alannah Shaw APRN - 09/27/2024 11:43 AM ESTAssociated Problem(s): Generalized anxiety disorder Anxiety - Assessment: Taking Clonazepam 2 mg TID has been helpful, history of difficulties with weaning off - Plan: - Educate on long-term risks: memory issues, falls, dementia. - Continue for now, - Refer to Psychotherapy - discussed plan to start tapering off by next visit. * Alannah Shaw APRN - 09/27/2024 11:43 AM ESTAssociated Problem(s): Major depressive disorder, recurrent episode, severe with mood-congruent psychotic features ([facility]-CMS) MDD with psychosis Vs schizoaffective d/o - Assessment: reoccurring AH, worsening mood, tearful - Plan: - Increase to Abilify 15 mg in the morning - Change Seroquel to 400 mg nightly - continue Amitriptyline to 150 mg start Buspar 5 mg TID Patient also taking Topamax 50 mg Gabapentin 800 TID - Reevaluate efficacy at follow-up. * Alannah Shaw APRN - 09/27/2024 11:[address] [facility] OFFICE VISIT Name: Lizet Sagastume : 1975 PCP: No primary care provider on file. ASSESSMENT AND PLAN Problem List Items Addressed This Visit BH/MH Problems Generalized anxiety disorder Anxiety - Assessment: Taking Clonazepam 2 mg TID has been helpful, history of difficulties with weaning off - Plan: - Educate on long-term risks: memory issues, falls, dementia. - Continue for now, - Refer to Psychotherapy - discussed plan to start tapering off by next visit. Relevant Medications clonazePAM (KLONOPIN) 2 mg tablet Major depressive disorder, recurrent episode, severe with mood-congruent psychotic features (HCC-CMS) - Primary MDD with psychosis Vs schizoaffective d/o - Assessment: reoccurring AH, worsening mood, tearful - Plan: - Increase to Abilify 15 mg in the morning - Change Seroquel to 400 mg nightly - continue Amitriptyline to 150 mg start Buspar 5 mg TID Patient also taking Topamax 50 mg Gabapentin 800 TID - Reevaluate efficacy at follow-up. Relevant Medications QUEtiapine (SEROQUEL) 400 mg tablet amitriptyline (ELAVIL) 150 mg tablet Follow-up: Return in about 4 weeks (around 10/25/2024). Alannah Bennetti, TITLE INSURANCE EXAMINER 09/27/2024 11:23 AM EST REASON FOR VISIT Chief Complaint Patient presents with Follow Up HPI/ROS Patient seen for follow-up, reports worsening mood swings since she started taking 0.5 tab ( 200 mg) of Seroquel in the morning, she described her mood as down, sad and anxious. Anxious due to pending decision on her SSI, Patient reports that she is not wanted at her current resident with her daughter, she is worried about being homeless if it's not approved. Patient is crying about her mother who 6 years ago, patient reports hearing her mother calling her name, she endorsed VH, thought she saw a snake in banana she bought from the store. We discussed her labs and reason of cutting back on the Seroquel understanding voiced, she states she is working on her diet and trying to exercise more. Sleep is good, appetite is good, denies SI/HI/plan. PHQ No data to display Review of Systems Constitutional: Negative. HENT: Negative. Eyes: Negative. Respiratory: Negative. Cardiovascular: Negative. Breasts: Negative. Gastrointestinal: Negative. Endocrine: Negative. Genitourinary: Negative. Musculoskeletal: Negative. Skin: Negative. Allergic/Immunologic: Negative. Neurological: Negative. Hematological: Negative. Psychiatric/Behavioral: Positive for dysphoric mood and hallucinations. The patient is nervous/anxious. VITALS: There were no vitals filed for this visit. Physical Exam Neurological: Mental Status: She is oriented to person, place, and time. Psychiatric: Attention and Perception: Attention normal. She perceives auditory and visual hallucinations. Mood and Affect: Mood normal. Affect is flat and tearful. Speech: Speech normal. Behavior: Behavior normal. Behavior is cooperative. Thought Content: Thought content is paranoid. Cognition and Memory: Cognition normal. Judgment: Judgment normal. Visit conducted via Telehealth with audio only.. Telehealth Provided Other than in Patient's Home. TELEMEDICINE ATTESTATION I verified the patient by the patients name, date of and insurance ID. I disclosed my identity and credentials. I reviewed, as appropriate, relevant history and medical records with the patient. I determined that I could provide the same standard of care and if I determined I could not do that during the telemedicine visit, I directed the patient to seek in person care. I discussed confidentiality rights with the patient. I disclosed my location and discussed the patient location. I discussed how the patient can see a clinician in-person in the event of an emergency or as otherwise needed. . Alannah Shaw APRN 09/27/2024 documented in this encounter Plan of Treatment Upcoming Encounters Date Type Department Care Team (Late st Contact Info) Description 10/25/2024 12:30 PM EST Behavioral Health Visit [facility] [address] [place] [phone] Alannah Shaw APRN [address] [facility] [place] [address] documented as of this encounter Visit Diagnoses Diagnosis Major depressive disorder, recurrent episode, severe with mood-congruent psychotic features (HCC-CMS)- Primary Generalized anxiety disorder documented in this encounter
--- OUTSIDE RECORDS SUMMARY | 2024-10-04 08:09 | XMS_ITS | Encounter Summary ---
Author Organization [employer] Address [address] [facility] 7t [place] [address] Care Team Providers Care Clay Artist Name Role Phone Cheryl Fitzpatrick MD Primary Care Provider + Nick Castellanos Unavailable Unavailable Reason for Visit * Reason Comments Care Coordination C3/W MAYO Aguiar#2- Follow up call-LVM Encounter Details Date Type Department Care Team (Latest Contact Info) Description 09/07/2024 Patient Outreach [facility] MEDICINE [address] [place] [phone] Cheryl Fitzpatrick MD [address] [place], [place] [phone] Care Coordination (C3CM/MAYO Brar#2- Follow up call-LVM) Social History Tobacco Use Types Packs/Day Years [...] AM EDT documented as of this encounter Progress Notes * Waqas Morales - 09/07/2024 4:18 PM EST CHW Waqas Morales placed outbound call to patient for follow up call. No answer at this time. LVMintroducing self from [facility] CM Department. Requested call back. CHW reinforced direct contact information for any additional questions or concerns and extended clinic hours on Mondays and Wednesdays, and Walk-In Urgent Care Located in [facility]. Guardian was provided with after-hours line for [facility], , which offer night time triage service and option to transfer to sheet metal contractor provider if needed. CHW will attempt another follow up call within 10 days. documented in this encounter Plan of Treatment Upcoming Encounters Date Type Department Care Team (Late st Contact Info) Description 10/09/2024 1:00 PM EST Office Visit [facility] [address] [place] [address] Cheryl Fitzpatrick MD [address] [place] [address] 10/17/2024 2:30 PM EST Office Visit [facility] ADULT DENTAL [address] [place] [address] Hema Hill DDS [address] [place] [address] 01/17/2025 1:00 PM EDT Office Visit [facility] OPT[facility]ETRY [address] [place] [address] Salena Garcia OD [address] [place] [address] documented as of this encounter Goals Goal [...] documented as of this encounter Care Teams Clay Artist Relationship Specialty Start Date End Date Cheryl Fitzpatrick MD [address] [place] [address] PCP - General Internal Medicine 09/10/22 Nick Castellanos FNP [address] [place] [address] Nurse Practitioner Family Medicine 07/04/23 Apolonia Mars pet care assistant Relief PharmacistTop Icer 11/16/23 documented as of this encounter
--- OUTSIDE RECORDS SUMMARY | 2024-10-04 08:09 | XMS_ITS | Encounter Summary ---
Author Organization [employer] Address [address] [facility] 7t [place] [address] Care Team Providers Care Marketing Business Analyst Name Role Phone Cheryl Fitzpatrick MD Primary Care Provider + Edu Leung PharmD Unavailable [phone] Nick Castellanos BRIM RAISER Unavailable Unavailable Reason for Visit * Reason Onset Date Comments cancelling appt with OS 04/19/2023 Encounter Details Date Type Department Care Team (Late st Contact Info) Description 04/19/2023 Telephone [facility] ADULT DENTAL [address] [place], [place] [phone] Hema Hill DDS [address] [place], [place] [phone] cancelling appt with OS Social History Tobacco Use Types Packs/Day Years Used Date Smoking Tobacco: Former Cigarettes Q uit: 12/20/2022 Passive Smoke Exposure: Current Smokeless Tobacco: Never Comments:Patient is ready t quit smoking with counciling Alcohol Use Standard Drinks/Week Comments Never 0 (1 standard drink = 0.6 oz pur e alcohol) PHQ-2 Answer Date Recorded Patient Health Questionnaire-2 Score 3 04/07/2023 Comments No Sex and Gender Information Value Date Recorded Sex Assigned at Female 06/21/2022 10:37 AM EDT Legal Sex Female 10:37 AM EDT Gender Identity Female 06/21/2022 10:37 AM EDT Sexual Orientation Straight 06/21/2022 10 :37 AM EDT documented as of this encounter Miscellaneous Notes * Telephone Encounter - Anupama Garcia - 04/19/2023 10:55 AM EDT Patient called in to cancel appt with Oral Surgery on 04/27 because has a colonoscopy and endoscopyon the same day. The original appt was with Dr. Hill and she would like to know if she can be scheduled with him. She is in a lot of pain and doesn't think she is going to be able to wait until a new visit with Armand. Can appt with Liz be rescheduled? Appt for Oral Surgery still on the schedule but needs to be cancelled. Reached out to oral jewel sorter but could not reach her DR documented in this encounter Plan of Treatment Upcoming Encounters Date Type Department Care Team (Late st Contact Info) Description 10/09/2024 1:00 PM EST Office Visit [facility] MED[facility] [address] [place] [address] Cheryl Fitzpatrick MD [address] [place] [address] 10/17/2024 2:30 PM EST Office Visit [facility] ADULT DENTAL [address] [place] [address] Hema Hill DDS [address] [place] [address] 01/17/2025 1:00 PM EDT Office Visit [facility] OPT[facility]ETRY [address] [place] [address] Salena Garcia OD [address] [place] [address] documented as of this encounter Goals Goal [...] Assessment Noted Time PHQ-9 Depression Total Score: 12 023 10:04 AM EDT documented as of this encounter Care Teams Marketing Business Analyst Relationship Specialty Start Date End Date Cheryl Fitzpatrick MD [address] [place] [address] PCP - General Internal Medicine 09/10/22 Edu Leung PharmD [address] [place] [address] Pharmacist Internal Medicine 06/14/23 06/28/23 Nick Castellanos FNP [address] [place] [address] Nurse Practitioner Family Medicine 07/04/23 Court Shay Fence Post Cutter 11/11/23 02/10/24 Apolonia Mars family day carer Fence Post CutterPhotolithographic Stripper 11/16/23 documented as of this encounter
--- OUTSIDE RECORDS SUMMARY | 2024-10-04 08:09 | XMS_ITS | Encounter Summary ---
Author Organization [employer] Address [address] [facility] 7t [place] [address] Care Team Providers Care Billing Specialist Name Role Phone Cheryl Fitzpatrick MD Primary Care Provider + Nick Castellanos Unavailable Unavailable Reason for Visit * Reason Comments Dentures Encounter Details Date Type Department Care Team (Late st Contact Info) Description 09/12/2024 3:30 PM EST Office Visit [facility] ADULT DENTAL [address] [place], [place] [phone] Hema Hill DDS [address] [place], [place] [phone] Complete edentulism, unspecified edentulism class (Primary Dx) Social History Tobacco Use Types Packs/Day Years [...] with others, in a hotel, in a senior living, living outside on the street, on a [...] AM EDT documented as of this encounter Last Filed Vital Signs Vital Sign Reading Time Taken Comments Blood Pressure 128/80 09/12/2024 3:30 PM EST Pulse - - Temperature - - Respiratory Rate - - Oxygen Saturation - - Inhaled Oxygen Concentration - - Weight - - Height - - Body Mass Index - - documented in this encounter Progress Notes * Hema Hill DDS - 09/12/2024 3:30 PM EST Patient ID: Lizet Sagastume is a 48 y.o. female. Time Out: Timeout Date: 09/12/24 (wax try-in on full upper and full lower denture), Timeout Time: 1529 Location: [facility] Tooth: Maxilla and Mandible Procedure: Dentures Verified the above with patient, catalog library assistant, and provider. Confirmed via patient's chart, intraorally and by radiographs. Sales Technician Home Theater: not applicable Chief Complaint Patient presents with Dentures Medical Hx: Vitals: Blood pressure 128/80. Medications, Med Hx reviewed with patient and updated in chart. Consent Obtained: The risks, benefits, indications, potential complications, and alternatives were explained to the patient and informed consent was obtained with good understanding. Treatment Provided: Dental procedures in this visit D5110.9 - WAX TRY IN Tried in denture(s) with teeth set in wax. -Evaluated for comfort, fit, phonetics, and stability (f, v, s, th sounds; swallow, yawn, etc) Pt wants anterior teeth smaller , need to correct bite / slightly cross now . New bite registation taken / sent to Lab. -Evaluated for satisfactory esthetics. -Occlusion verified; adjustments to tooth set up made as needed Patient accepts all aspects of prosthesis and consents to proceed with final processing. Sent to Lab for final processing. Lab used: [facility] Due Date: 09-19-24 Patient discharged alert, oriented, and in stable condition. NV: 2nd Try in Brake Repair Supervisor: Jes Kerr Dentist: Hema Hill DDS documented in this encounter Plan of Treatment Upcoming Encounters Date Type Department Care Team (Late st Contact Info) Description 10/09/2024 1:00 PM EST Office Visit [facility] MEDICINE [address] [place] [address] Cheryl Fitzpatrick MD [address] [place] [address] 10/17/2024 2:30 PM EST Office Visit [facility] ADULT DENTAL [address] [place] [address] Hema Hill DDS [address] [place] [address] 01/17/2025 1:00 PM EDT Office Visit [facility] OPTOMETRY [address] [place] [address] Salena Garcia, OD [address] [place] [address] documented as of this encounter Goals Goal Patient Goal Type Associated Problems Recent Progress Patient-Stated? Author Blood Pressure < 140/90 Blood Pressure 128/80(2024 3:30 PM EST) No Piers-Gambl e, Kenzie, PharmD Hemoglobin A1c < 7 Result Component 8.3( 10:54 AM EST) No Piers-Gambl e, Kenzie, PharmD documented as of this encounter Procedures Procedure Name Priority Date/Time Associated Diagnosis Comments WAX TRY IN Routine 09/12/2024 3:30 PM EST documented in this encounter Visit Diagnoses Diagnosis Complete edentulism, unspecified edentulism class- Primary documented in this encounter Additional Health Concerns Assessment Noted Time PHQ-9 Depression Total Score: 10 024 10:01 AM EDT documented as of this encounter Care Teams Billing Specialist Relationship Specialty Start Date End Date Cheryl Fitzpatrick MD [address] [place] [address] PCP - General Internal Medicine 09/10/22 Nick Castellanos FNP [address] [place] [address] Nurse Practitioner Family Medicine 07/04/23 Apolonia Mars residential caregiver Harness MenderMonument Mason 11/16/23 documented as of this encounter
--- OUTSIDE RECORDS SUMMARY | 2024-10-04 08:09 | XMS_ITS | Encounter Summary ---
Author Organization [employer] Address [address] [facility] 7t [place] [address] Care Team Providers Care Rack Production Worker Name Role Phone Cheryl Fitzpatrick MD Primary Care Provider + Edu Leung PharmD Unavailable [phone] Nick Castellanos DIETITIAN RESEARCH Unavailable Unavailable Reason for Visit * Reason Onset Date Comments call back 10/05/2022 Encounter Details Date Type Department Care Team (Late st Contact Info) Description 10/05/2022 Telephone [facility] MEDICINE [address] [place], [place] [phone] Cheryl Fitzpatrick MD [address] [place], [place] [phone] call back Social History Tobacco Use Types Packs/Day Years Used Date Smoking Tobacco: Every Day Cigarettes Smokeless Tobacco: Never Comments:Patient is ready t quit smoking with counciling Alcohol Use Standard Drinks/Week Comments Never 0 (1 standard drink = 0.6 oz pur e alcohol) PHQ-2 Answer Date Recorded Patient Health Questionnaire-2 Score 6 10/01/2022 Comments No Sex and Gender Information Value [...] suspected to have Coronavirus/COVID-19? No / Unsure 10/01/2022 9:07 AM EST documented as of this encounter Miscellaneous Notes * Telephone Encounter - Edin Gutierrez - 10/05/2022 9:56 AM EST Tc from pt returning call. Pt requesting a call back documented in this encounter Plan of Treatment Upcoming Encounters Date Type Department Care Team (Late st Contact Info) Description 10/09/2024 1:00 PM EST Office Visit [facility] MEDICINE [address] [place] [address] hCeryl Fitzpatrick MD [address] [place] [address] 10/17/2024 2:30 PM EST Office Visit [facility] ADULT DENTAL [address] [place] [address] Hema Hill DDS [address] [place] [address] 01/17/2025 1:00 PM EDT Office Visit [facility] OPTOMETRY [address] [place] [address] Salena Garcia OD [address] [place] [address] documented as of this encounter Visit Diagnoses Not on filedocumented in this encounter Additional Health Concerns Assessment Noted Time PHQ-9 Depression Total Score: 19 023 9:39 AM EST documented as of this encounter Care Teams Rack Production Worker Relationship Specialty Start Date End Date Cheryl Fitzpatrick MD [address] [place] [address] PCP - General Internal Medicine 09/10/22 Edu Leugn, Merari [address] [place] [address] Pharmacist Internal Medicine 06/14/23 06/28/23 Nick Castellanos FNP [address] [place] [address] Nurse Practitioner Family Medicine 07/04/23 Court Shay Oil Well Gun Perforator Operator 11/11/23 02/10/24 Apolonia Mars customer care coordinator Oil Well Gun Perforator OperatorNursery Worker 11/16/23 documented as of this encounter
--- OUTSIDE RECORDS SUMMARY | 2024-10-04 08:09 | XMS_ITS | Encounter Summary ---
Author Organization [employer] Address [address] [facility] [address] 7[address] [place] [address] Care Team Providers Care Superintendent Drivers Name Role Phone Cheryl Fitzpatrick MD Primary Care Provider + Nick Castellanos Unavailable Unavailable Reason for Visit * Reason Comments Med Refill Encounter Details Date Type Department Care Team (Late st Contact Info) Description 09/13/2024 Refill [facility] MEDICINE [address] [place], [place] [phone] Cheryl Fitzpatrick MD [address] [place], [place] [phone] Anxiety; Migraine with aura and without status [...] with others, in a hotel, in a fpc, living outside on the street, on a [...] Description 10/09/2024 1:00 PM EST Office Visit [facility] MEDICINE [address] [place] [address] Cheryl Fitzpatrick MD [address] [place] [address] 10/17/2024 2:30 PM EST Office Visit [facility] ADULT DENTAL [address] [place] [address] Hema Hill DDS [address] [place] [address] 01/17/2025 1:00 PM EDT Office Visit [facility] OPTOMETRY [address] [place] [address] Salena Garcia, OD [address] [place] [address] documented as of this encounter Goals Goal [...] documented as of this encounter Care Teams Superintendent Drivers Relationship Specialty Start Date End Date Cheryl Fitzpatrick MD [address] [place] [address] PCP - General Internal Medicine 09/10/22 Nick Castellanos FNP [address] [place] [address] Nurse Practitioner Family Medicine 07/04/23 Apolonia Mars clinical care leader Biological InspectorTechnical Services Manager 11/16/23 documented as of this encounter
--- OUTSIDE RECORDS SUMMARY | 2024-10-04 08:09 | XMS_ITS | Encounter Summary ---
Author Organization [employer] Address [address] [facility] 7t [place] [address] Care Team Providers Care Display Decorator Name Role Phone Cheryl Fitzpatrick MD Primary Care Provider + Edu Leung PharmD Unavailable [phone] Nick Castellanos INCREMENT MANAGER Unavailable Unavailable Encounter Details Date Type Department Care Team (Late st Contact Info) Description 11/12/2022 Abstract [facility] MEDICINE [address] [place], [place] [phone] Cheryl Fitzpatrick MD [address] [place], [place] [phone] Social History Tobacco Use Types Packs/Day Years [...] suspected to have Coronavirus/COVID-19? No / Unsure 11/15/2022 9:48 AM EDT documented as of this encounter Plan of Treatment Upcoming Encounters Date Type Department Care Team (Late st Contact Info) Description 10/09/2024 1:00 PM EST Office Visit [facility] MEDICINE [address] [place] [address] Cheryl Fitzpatrick MD [address] [place] [address] 10/17/2024 2:30 PM EST Office Visit [facility] ADULT DENTAL [address] [place] [address] Hema Hill DDS [address] [place] [address] 01/17/2025 1:00 PM EDT Office Visit [facility] OPTOMETRY [address] [place] [address] Salena Garcia, OD [address] [place] [address] documented as of this encounter Visit Diagnoses Not on filedocumented in this encounter Additional Health Concerns Assessment Noted Time PHQ-9 Depression Total Score: 19 023 9:39 AM EST documented as of this encounter Care Teams Display Decorator Relationship Specialty Start Date End Date Cheryl Fitzpatrick MD [address] [place] [address] PCP - General Internal Medicine 09/10/22 Edu Leung, HudsonD [address] [place] [address] Pharmacist Internal Medicine 06/14/23 06/28/23 Nick Castellanos FNP [address] [place] [address] [place] [address] Nurse Practitioner Family Medicine 07/04/23 Court Shay Clinical Project Manager 11/11/23 02/10/24 Apolonia Mars health care coordinator Clinical Project ManagerBelt Worker 11/16/23 documented as of this encounter
--- OUTSIDE RECORDS SUMMARY | 2024-10-04 08:09 | XMS_ITS | Encounter Summary ---
Author Organization [employer] Address [address] [facility] 7t [place] [address] Care Team Providers Care District Claims Manager Name Role Phone Cheryl Fitzpatrick MD Primary Care Provider + Nick Castellanos Unavailable Unavailable Reason for Visit * Reason Onset Date Comments Lab Orders 09/14/2024 Encounter Details Date Type Department Care Team (Late st Contact Info) Description 09/14/2024 Telephone [facility] MEDICINE [address] [place], [place] [phone] Cheryl Fitzpatrick MD [address] [place], [place] [phone] Lab Orders Social History Tobacco Use Types Packs/Day Years [...] with others, in a hotel, in a mcc, living outside on the street, on a [...] encounter Miscellaneous Notes * Telephone Encounter - Jaimee Naik RN - 09/18/2024 1:12 PM EST TC placed to pt via [employer] [facility] counselor (Chay ID#[id number]) regarding drug testing orders. Advised pt to call psychiatrist as they should be they ones to place orders for drug testing. Pt states she has called twice and has not been able to get through and she won't call a third time. Pt states she has been trying to call psychiatrist office since last Tuesday and asked them to send a fax for the orders. Pt states she speaks with psychiatrist every month. Advised pt to ask psychiatrist to send lab orders for drug testing next time she speaks to psychiatrist, or pt can continue to try and call psychiatrist office as they are the ones who should place the order for drug testing. Pt verbalized underst anding and denies any questions or concerns at this time. * Telephone Encounter - Margo Causey - 09/18/2024 1:00 PM EST Tc from pt stating contacted psychiatry offices and they confirmed labs were for drug testing. [phone] ([place]) * Telephone Encounter - Ernestina Love RN - 09/14/2024 12:25 PM EST Telephone call to the pt regarding the previous message . Pt was advised per the Psychiatrist note there are labs ordered . Pt was advised that these were blood work orders ,and not a drug test . Pt was advised to call the Psychiatrist to make sure the orders are in place at the lab she goes to and to be sure she does not have to be fasting for any of the ordered labs as pt expressed concern co ordinating her transportation and then the orders not being at the lab . Pt states she will call her Psychiatrist office to clarify . * Telephone Encounter - Argelia Mckeon - 09/14/2024 11:44 AM EST Tc from pt stating she was advise by psychiatrist to request lab orders from PCP. Piece Work Inspector advise pt she has active lab orders. Pt stated it is regarding a drug test. Contact pt for clarification at [phone] ([place]) documented in this encounter Plan of Treatment Upcoming Encounters Date Type Department Care Team (Late st Contact Info) Description 10/09/2024 1:00 PM EST Office Visit [facility] MEDICINE [address] [place] [address] Cheryl Fitzpatrick MD [address] [place] [address] 10/17/2024 2:30 PM EST Office Visit [facility] ADULT DENTAL [address] [place] [address] Hema Hill DDS [address] [place] [address] 01/17/2025 1:00 PM EDT Office Visit [facility] OPTOMETRY [address] [place] [address] Salena Garcia, OD [address] [place] [address] documented as of this encounter Goals Goal [...] documented as of this encounter Care Teams District Claims Manager Relationship Specialty Start Date End Date Cheryl Fitzpatrick MD [address] [place] [address] PCP - General Internal Medicine 09/10/22 Nick Castellanos FNP [address] [place] [address] Nurse Practitioner Family Medicine 07/04/23 Apolonia Mars ocular care aide Furniture Sales AssociateElectrochemist 11/16/23 documented as of this encounter
--- OUTSIDE RECORDS SUMMARY | 2024-10-04 08:09 | XMS_ITS | Encounter Summary ---
Author Organization [employer] Address [address] [facility] 7 [place] [address] Care Team Providers Care Drilling Manager Name Role Phone Cheryl Fitzpatrick MD Primary Care Provider + Nick Castellanos Unavailable Unavailable Reason for Visit * Reason Onset Date Comments Results 09/05/2024 Encounter Details Date Type Department Care Team ([facility] st Contact Info) Description 09/05/2024 Telephone [facility] MEDICINE [address] [place], [place] [phone] Luz Castillo, BILLIE [address] [place], [place] [phone] Results Social History Tobacco Use Types Packs/Day Years [...] with others, in a hotel, in a skilled nursing, living outside on the street, on a [...] encounter Miscellaneous Notes * Telephone Encounter - Luz Castillo RN - 09/06/2024 9:07 AM EST Noted regarding below manager of patient message. RN has called patient and cancelled appointment for 09/28/24 and scheduled with PCP for 10/09/24. Patient agreed to appointment date and time. * Telephone Encounter - Luz Castillo RN - 09/05/2024 9:26 AM EST TC placed to patient [phone] via [employer] (Jordy #[id number]) to inform of below message.Patient verbalized understanding and reports she last saw endo 07/2024 and is compliant with endo appointments. Patient aware to complete additional BW while fasting prior to appointment on 09/28/24. Patient verbalized understanding and is aware BW has been placed electronically. Patient to f/u PRN. Of note, patient is NOT transferring PCP's, the appointment on 09/28/24 was booked by call center-appears to have been scheduled with wrong provider by error Sending to PCP as FYI. ----- Message from Cheryl Fitzpatrick MD sent at 09/04/2024 8:23 PM EST ----- Labs on 08/31/24 showed significant hypertriglyceridemia , much worse than 2y ago, most likely to previously uncontrolled DM + recent increase on Seroquel dose. Her LFTs are also a bit higher, most likely due to fatty liver due to same reasons (DM + meds). Please call her and tell her to make sure she's seen by endocrinology ([facility] endo) re lipids and DM, I will send a message to her psychiatrists to see if there is a chance to change meds or otherwise we can adjust her DM meds and start meds for high TG at next visit w me. For now please ask her to get other labs (FASTING please) done prior to fu w me (NOTE: she has an appt with Dr cardenas on 09/28/24 for fu ? Unclear if she requested a TP appt? If so, please let me know so I can do a soft sign out to her). documented in this encounter Plan of Treatment Upcoming Encounters Date Type Department Care Team (Late st Contact Info) Description 10/09/2024 1:00 PM EST Office Visit [facility] MEDICINE [address] [place] [address] Cheryl Fiztpatrick MD [address] [place] [address] 10/17/2024 2:30 PM EST Office Visit [facility] ADULT DENTAL [address] [place] [address] Hema Hill DDS [address] [place] [address] 01/17/2025 1:00 PM EDT Office Visit [facility] OPTOMETRY [address] [place], [place] [phone] Salena Garcia, OD [address] [place] [address] documented as of this encounter Goals Goal [...] documented as of this encounter Care Teams Drilling Manager Relationship Specialty Start Date End Date Cheryl Fitzpatrick MD [address] [place] [address] PCP - General Internal Medicine 09/10/22 Nick Castellanos FNP [address] [place] [address] Nurse Practitioner Family Medicine 07/04/23 Apolonia Mars post acute care nurse Miter CutterHematologist 11/16/23 documented as of this encounter
--- OUTSIDE RECORDS SUMMARY | 2024-10-04 08:09 | XMS_ITS | Encounter Summary ---
Author Organization [employer] Address [address] [facility] 7t [place] [address] Care Team Providers Care Roofer Gypsum Name Role Phone Cheryl Fitzpatrick MD Primary Care Provider + Edu Leung PharmD Unavailable [phone] Nick Castellanos BED LABORER Unavailable Unavailable Encounter Details Date Type Department Care Team (Late st Contact Info) Description 10/05/2022 Orders Only [facility] MEDICINE [address] [place], [place] [phone] Cheryl Fitzpatrick MD [address] [place], [place] [phone] Fibromyalgia (Primary Dx); Migraine with aura and without status migrainosus, [...] AM EST documented as of this encounter Plan of Treatment Upcoming Encounters Date Type Department Care Team (Late st Contact Info) Description 10/09/2024 1:00 PM EST Office Visit [facility] MEDICINE [address] [place] [address] Cheryl Fitzpatrick MD [address] [place] [address] 10/17/2024 2:30 PM EST Office Visit [facility] ADULT DENTAL [address] [place] [address] Hema Hill DDS [address] [place] [address] 01/17/2025 1:00 PM EDT Office Visit [facility] OPTOMETRY [address] [place] [address] Salena Garcia OD [address] [place] [address] documented as of this encounter Visit Diagnoses Diagnosis Fibromyalgia- Primary Unspecified myalgia and myositis Migraine with aura and without status migrainosus, not intractable documented in this encounter Additional Health Concerns Assessment Noted Time PHQ-9 Depression Total Score: 19 023 9:39 AM EST documented as of this encounter Care Teams Roofer Gypsum Relationship Specialty Start Date End Date Cheryl Fitzpatrick MD [address] [place] [address] PCP - General Internal Medicine 09/10/22 Edu Leung, HudsonD [address] [place] [address] Pharmacist Internal Medicine 06/14/23 06/28/23 Nick Castellanos FNP [address] [facility] [place] [address] Nurse Practitioner Family Medicine 07/04/23 [address] Blow Mold Machine Operator 11/11/23 02/10/24 Apolonia Mars care trainer Blow Mold Machine OperatorTelesales Agent 11/16/23 documented as of this encounter
--- OUTSIDE RECORDS SUMMARY | 2024-10-04 08:09 | XMS_ITS | Encounter Summary ---
Author Organization [email or web address] Address [address] [facility] 7t [place] [address] Care Team Providers Care Observer Electrical Prospecting Name Role Phone Cheryl Fitzpatrick MD Primary Care Provider + Edu Leung PharmD Unavailable [phone] Nick Castellanos FINANCE ADMIN Unavailable Unavailable Reason for Visit * Reason Comments Med Refill Encounter Details Date Type Department Care Team (Late st Contact Info) Description 12/09/2022 Refill [facility] MEDICINE [address] [place], [place] [phone] Cheryl Fitzpatrick MD [address] [place], [place] [phone] Type 2 diabetes mellitus with hyperglycemia, with long-term current use of insulin ([facility]); Anxiety Social History Tobacco Use Types Packs/Day [...] suspected to have Coronavirus/COVID-19? No / Unsure 11/29/2022 10:21 AM EDT documented as of this encounter Plan of Treatment Upcoming Encounters Date Type Department Care Team (Late st Contact Info) Description 10/09/2024 1:00 PM EST Office Visit [facility] MEDICINE [address] [place] [address] Cheryl Fitzpatrick MD [address] [place] [address] 10/17/2024 2:30 PM EST Office Visit [facility] ADULT DENTAL [address] [place] [address] Hema Hill DDS [address] [place] [address] 01/17/2025 1:00 PM EDT Office Visit [facility] OPTOMETRY [address] [place] [address] Salena Garcia OD [address] [place] [address] documented as of this encounter Visit Diagnoses Diagnosis Type 2 diabetes mellitus with hyperglycemia, with long-term current use of insulin ([facility]) Anxiety Anxiety state, unspecified documented in this encounter Additional Health Concerns Assessment Noted Time PHQ-9 Depression Total Score: 9 11/16/19 23 10:11 AM EDT documented as of this encounter Care Teams Observer Electrical Prospecting Relationship Specialty Start Date End Date Cheryl Fitzpatrick MD [address] [place] [address] PCP - General Internal Medicine 09/10/22 Edu eLung, HudsonD [address] [place] [address] Pharmacist Internal Medicine 06/14/23 06/28/23 Nick Castellanos FNP [address] [place] [address] Nurse Practitioner Family Medicine 07/04/23 [address] Sh[address] Remarketing Rep 11/11/23 02/10/24 Apolonia Mars director day care center Remarketing RepLap Winding Machine Operator 11/16/23 documented as of this encounter
--- OUTSIDE RECORDS SUMMARY | 2024-10-04 08:09 | XMS_ITS | Encounter Summary ---
Author Organization [employer] Address [address] [facility] 7t [place] [address] Care Team Providers Care Shrub Planter Name Role Phone Cheryl Fitzpatrick MD Primary Care Provider + Nick Castellanos Unavailable Unavailable Reason for Visit * Reason Onset Date Comments Created in error 03/20/2024 Encounter Details Date Type Department Care Team ([facility] st Contact Info) Description 03/20/2024 Telephone [facility] MEDICINE [address] [place], [place] [phone] Cheryl Fitzpatrick MD [address] [place], [place] [phone] Created in error Social History Tobacco Use Types Packs/Day Years [...] Description 10/09/2024 1:00 PM EST Office Visit [facility] MEDICINE [address] [place] [address] Cheryl Fitzpatrick MD [address] [place] [address] 10/17/2024 2:30 PM EST Office Visit [facility] ADULT DENTAL [address] [place] [address] Hema Hill DDS [address] [place] [address] 01/17/2025 1:00 PM EDT Office Visit [facility] OPTOMETRY [address] [place] [address] Salena Garcia, OD [address] [place] [address] documented as of this encounter Goals Goal [...] documented as of this encounter Care Teams Shrub Planter Relationship Specialty Start Date End Date Cheryl Fitzpatrick MD [address] [place] [address] PCP - General Internal Medicine 09/10/22 Nick Castellanos FNP [address] [place] [address] Nurse Practitioner Family Medicine 07/04/23 Apolonia Mars rn progressive care unit Button ReclaimerOffice Services Assistant 11/16/23 documented as of this encounter
--- OUTSIDE RECORDS SUMMARY | 2024-10-04 08:09 | XMS_ITS | Encounter Summary ---
Author Organization [employer] Address [address] [facility] 7t [place] [address] Care Team Providers Care Internal Controls Specialist Name Role Phone Cheryl Fitzpatrick MD Primary Care Provider + Nick Castellanos Unavailable Unavailable Reason for Visit * Reason Onset Date Comments Medication Question 09/05/2024 Encounter Details Date Type Department Care Team (Late st Contact Info) Description 09/05/2024 Telephone [facility] MEDICINE [address] [place], [place] [phone] Luz Castillo, BILLIE [address] [place], [place] [phone] Medication Question Social History Tobacco Use Types Packs/Day Years [...] encounter Miscellaneous Notes * Telephone Encounter - Cheryl Fitzpatrick MD - 09/11/2024 3:47 PM EST Agree with psychopharmacology rx re Abilify and Seroquel. I will fu with patient at next appt w nj. * Telephone Encounter - Luz Castillo RN - 09/11/2024 11:58 AM EST Incoming call from psychiatrist (Alannah Shaw) in regards to below message. Alannah reports she is working on tapering patient off of seroquel medication. Alannah reports she has already started to taper patient off to Abilify. Alannha reports the patient started experiencing auditory hallucinationsand Alannah had to increase the abilify dose. Alannah confirms the plan is to slowly continue to increase dose of Abilify and discontinue seroquel. Sending to PCP as FYMk. Per Dr. Fitzpatrick: Labs on 08/31/24 showed significant increase on lipids (specially triglycerides) which are most likely related to Dm but also to higher dose of Seroquel? Please contact MH provider (Lily Redmond APRN) and see if she considers that Seroquel dose can be lowered a bit or start other meds that do notinterfere as much with her metabolic conditions (DM /TG), if she thinks this rx has allowed to optimize her MH condition, then she doesn't have to change it , I can start other meds and adjust the current ones. * Telephone Encounter - Luz Castillo RN - 09/11/2024 11:16 AM EST No CB received from psychiatrist office. RN called x4 to speak to psychiatrist in regards to below message. RN was transferred to glaze handler who took down the below information and will send a high priority message to psychiatry group for psychiatrist to review and office will return call to [facility]. RN advised this was the same thing RN was informed of on 09/07/24 abs has not received CB.RN was advised office will return call when psychiatrist responds. RN will await CB from office. Per Dr. Fitzpatrick: Labs on 08/31/24 showed significant increase on lipids (specially triglycerides) which are most likely related to Dm but also to higher dose of Seroquel? Please contact MH provider (Lily Redmond APRN) and see if she considers that Seroquel dose can be lowered a bit or start other meds that do notinterfere as much with her metabolic conditions (DM /TG), if she thinks this rx has allowed to optimize her MH condition, then she doesn't have to change it , I can start other meds and adjust the current ones. * Telephone Encounter - Luz Castillo RN - 09/07/2024 11:00 AM EST No CB received from psychiatrist office. RN called x3 to speak to psychiatrist in regards to below message. RN spoke to [place] and was transferred to glaze handler who took down the below information and will send a high priority message to psychiatry group for psychiatrist to review and office will return call to [facility]. RN will await CB from office. Per Dr. Fitzpatrick: Labs on 08/31/24 showed significant increase on lipids (specially triglycerides) which are most likely related to Dm but also to higher dose of Seroquel? Please contact MH provider (Lily Redmond APRN) and see if she considers that Seroquel dose can be lowered a bit or start other meds that do notinterfere as much with her metabolic conditions (DM /TG), if she thinks this rx has allowed to optimize her MH condition, then she doesn't have to change it , I can start other meds and adjust the current ones. * Telephone Encounter - Luz Castillo RN - 09/06/2024 11:40 AM EST No CB received from psychiatrist office. RN called x2 to speak to psychiatrist in regards to below message. RN was informed the nurse Niecy will return call to [facility] this PM. RN will await CB from Niecy. Per Dr. Fitzpatrick: Labs on 08/31/24 showed significant increase on lipids (specially triglycerides) which are most likely related to Dm but also to higher dose of Seroquel? Please contact MH provider (Lily Redmond APRN) and see if she considers that Seroquel dose can be lowered a bit or start other meds that do notinterfere as much with her metabolic conditions (DM /TG), if she thinks this rx has allowed to optimize her MH condition, then she doesn't have to change it , I can start other meds and adjust the current ones. * Telephone Encounter - Luz Castillo RN - 09/05/2024 9:39 AM EST TC placed to [facility] pharmacy who reports her Seroquel is Rx'd by Alannah Shaw (affiliated with [facility] in [facility]) per [facility] pharmacy. RN was advised phone number to psychiatrist is [phone]. RN attempted to call this number [phone] however received automated recording can't take your call right now . RN attempted to research alternative number on internet and found a phone number of [phone]. RN called number and provider was not available to speak to RN. RN left message with offset pressman in regards to below request and was informed psychiatrist will return call to [facility] within 24 hours. RN will await CB. Per Dr. Fitzpatrick: Labs on 08/31/24 showed significant increase on lipids (specially triglycerides) which are most likely related to Dm but also to higher dose of Seroquel? Please contact MH provider (Lily Redmond APRN) and see if she considers that Seroquel dose can be lowered a bit or start other meds that do notinterfere as much with her metabolic conditions (DM /TG), if she thinks this rx has allowed to optimize her MH condition, then she doesn't have to change it , I can start other meds and adjust the current ones. documented in this encounter Plan of Treatment Upcoming Encounters Date Type Department Care Team (Late st Contact Info) Description 10/09/2024 1:00 PM EST Office Visit [facility]INE [address] [place] [phone] Cheryl Fitzpatrick MD [address] [place], [place] [phone] 10/17/2024 2:30 PM EST Office Visit [facility] ADULT DENTAL [address] [place] [address] Hema Hill DDS [address] [place] [address] 01/17/2025 1:00 PM EDT Office Visit [facility] OPTOMETRY [address] [place] [address] Salena Garcia, OD [address] [place] [address] documented as of this encounter Goals Goal Patient Goal Type Associated Problems Recent Progress Patient-Stated? Author Blood Pressure < 140/90 Blood Pressure 128/80(2024 3:30 PM EST) No Yongs-Kenzie Malik, PharmD Hemoglobin A1c < 7 Result Component 8.3( 10:54 AM EST) No YongsKenzie Pineda, PharmD documented as of this encounter Visit Diagnoses Not on filedocumented in this encounter Additional Health Concerns Assessment Noted Time PHQ-9 Depression Total Score: 10 024 10:01 AM EDT documented as of this encounter Care Teams Internal Controls Specialist Relationship Specialty Start Date End Date Cheryl Fitzpatrick MD [address] [place] [address] PCP - General Internal Medicine 09/10/22 Nick Castellanos FNP [address] [place] [address] Nurse Practitioner Family Medicine 07/04/23 Apolonia Mars care consultant Cylinder Press Operator HelperReservoir Caretaker 11/16/23 documented as of this encounter
--- OUTSIDE RECORDS SUMMARY | 2024-10-04 08:09 | XMS_ITS | Encounter Summary ---
Author Organization [employer] Address [address] [facility] 7t [place] [address] Care Team Providers Care Mangle Press Catcher Name Role Phone Cheryl Fitzpatrick MD Primary Care Provider + Edu Leung PharmD Unavailable [phone] Nick Castellanos PER DIEM PHYSICAL THERAPIST Unavailable Unavailable Reason for Visit * Reason Comments Med Refill Encounter Details Date Type Department Care Team (Late st Contact Info) Description 10/05/2022 Refill [facility] WALK-IN [address] [phone] Name, MD Pradeep [address] [place] [phone] Type 2 diabetes mellitus with hyperglycemia, with long-term current use of insulin ([facility]); Anxiety Social History Tobacco Use Types [...] Description 10/09/2024 1:00 PM EST Office Visit [facility] MEDICINE [address] [place] [address] Cheryl Fitzpatrick MD 230 [place] [address] 10/17/2024 2:30 PM EST Office Visit [facility] ADULT DENTAL 230 [place] [address] Hema Hill DDS [address] [place] [address] 01/17/2025 1:00 PM EDT Office Visit [facility] OPTOMETRY [address] [place] [address] Salena Garcia OD [address] [place] [address] documented as of this encounter Visit Diagnoses Diagnosis Type 2 diabetes mellitus with hyperglycemia, with long-term current use of insulin ([facility]) Anxiety Anxiety state, unspecified documented in this encounter Additional Health Concerns Assessment Noted Time PHQ-9 Depression Total Score: 19 023 9:39 AM EST documented as of this encounter Care Teams Mangle Press Catcher Relationship Specialty Start Date End Date Cheryl Fitzpatrick MD [address] [place] [address] PCP - General Internal Medicine 09/10/22 Edu Leung, HudsonD [address] [place] [address] Pharmacist Internal Medicine 06/14/23 06/28/23 Nick Castellanos FNP [address] [place] [address] Nurse Practitioner Family Medicine 07/04/23 [address] Sh[address] Public Events Facilities Rental Manager 11/11/23 02/10/24 Apolonia Mars critical care rn Public Events Facilities Rental ManagerClothing Pattern Preparer 11/16/23 documented as of this encounter
--- OUTSIDE RECORDS SUMMARY | 2024-10-04 08:09 | XMS_ITS | Encounter Summary ---
Author Organization [employer] Address [address] [facility] 7t [place] [address] Care Team Providers Care Product Marketing Engineer Name Role Phone Cheryl Fitzpatrick MD Primary Care Provider + Nick Castellanos Unavailable Unavailable Reason for Visit * Reason Comments Care Coordination C3/W MAYO Aguiar#3- Follow up call-LVM Encounter Details Date Type Department Care Team (Latest Contact Info) Description 2024 Patient Outreach [facility] MEDICINE [address] [place] [phone] Cheryl Fitzpatrick MD [address] [place], [place] [phone] Care Coordination (C3CM/MAYO Brar#3- Follow up call-LVM) Social History Tobacco Use Types Packs/Day Years Used Date Smoking Tobacco: Former Cigarettes Q uit: 12/20/2022 Passive Smoke Exposure: Current Smokeless Tobacco: Never Comments:Pt is vaping Alcohol Use Standard Drinks/Week Comments Never 0 (1 standard drink = 0.6 oz pur e alcohol) Depression Answer Date Recorded Patient Health Questionnaire-9 Score 10 01/31/2024 Patient Health Questionnaire-9 Score 01/31/2024 Last PHQ-9: Questionnaire Data Not on [...] encounter Progress Notes * Waqas Morales - 2024 3:13 PM EST CHW Waqas Morales placed outbound call to patient for follow up call. No answer at this time. LVMintroducing self from [facility] CM Department. Requested call back. CHW reinforced direct contact information for any additional questions or concerns and extended clinic hours on Mondays and Wednesdays, and Walk-In Urgent Care Located in [facility]. Guardian was provided with after-hours line for [facility], , which offer night time triage service and option to transfer to finance and administration manager provider if needed. CHW will attempt another follow up call within 10 days. documented in this encounter Plan of Treatment Upcoming Encounters Date Type Department Care Team (Late st Contact Info) Description 10/09/2024 1:00 PM EST Office Visit [facility] MEDICINE [address] [place] [address] Cheryl Fitzpatrick MD [address] [place] [address] 10/17/2024 2:30 PM EST Office Visit [facility] ADULT DENTAL 230 [place] [address] Hema Hill DDS [address] [place] [address] 01/17/2025 1:00 PM EDT Office Visit [facility] OPTOMETRY [address] [place] [address] Salena Garcia OD [address] [place] [address] documented as of this encounter Goals Goal [...] documented as of this encounter Care Teams Product Marketing Engineer Relationship Specialty Start Date End Date Cheryl Fitzpatrick MD [address] [place] [address] PCP - General Internal Medicine 09/10/22 Nick Castellanos FNP [address] [place] [address] Nurse Practitioner Family Medicine 07/04/23 Apolonia Mars family member caretaker Fermentation ScientistKnife Glazer 11/16/23 documented as of this encounter
--- OUTSIDE RECORDS SUMMARY | 2024-10-04 08:09 | XMS_ITS | Encounter Summary ---
Author Organization [employer] Address [address] [facility] 7t [place] [address] Care Team Providers Care Pharmacovigilance Specialist Name Role Phone Cheryl Fitzpatrick MD Primary Care Provider + Edu Leung PharmD Unavailable Nick Castellanos TERMITE CONTROL SERVICER Unavailable Unavailable Encounter Details Date Type Department Care Team (Late st Contact Info) Description 05/18/2023 Abstract [facility] ADULT DENTAL 230 [place], [place] [phone] Hema Hill DDS [address] [place], [place] [phone] Social History Tobacco Use Types Packs/Day Years Used Date Smoking Tobacco: Former Cigarettes Q uit: 12/20/2022 Passive Smoke Exposure: Current Smokeless Tobacco: Never Comments:Pt is vaping Alcohol Use Standard Drinks/Week Comments Never 0 (1 standard drink = 0.6 oz pur e alcohol) Depression Answer Date Recorded Patient Health Questionnaire-9 Score 7 05/09/2023 Depression Answer Date Recorded Patient Health Questionnaire-2 Score 2 05/09/2023 Comments No Sex and Gender Information Value [...] 1:00 PM EST Office Visit [facility] MEDICINE [address] [place] [address] Cheryl Fitzpatrick MD [address] [place] [address] 10/17/2024 2:30 PM EST Office Visit [facility] ADULT DENTAL [address] [place] [address] Hema Hill DDS [address] [place] [address] 01/17/2025 1:00 PM EDT Office Visit [facility] OPTOMETRY [address] [place] [address] Salena Garcia OD [address] [place] [address] documented as of this encounter Goals Goal [...] Assessment Noted Time PHQ-9 Depression Total Score: 7 05/09/20 1:43 PM EDT documented as of this encounter Care Teams Pharmacovigilance Specialist Relationship Specialty Start Date End Date Cheryl Fitzpatrick MD [address] [place] [address] PCP - General Internal Medicine 09/10/22 Edu Leung, HudsonD [address] [place] [address] Pharmacist Internal Medicine 06/14/23 06/28/23 Nick Castellanos FNP [address] [place] [address] Nurse Practitioner Family Medicine 07/04/23 [address]ay Formstone Fitter 11/11/23 02/10/24 Apolonia Mars career transition specialist Formstone FitterInspector Balance Truing 11/16/23 documented as of this encounter
--- OUTSIDE RECORDS SUMMARY | 2024-10-04 08:10 | XMS_ITS | Encounter Summary ---
Author Organization [employer] Address [address] [facility] 7t [place] [address] Care Team Providers Care Esthetician/Skin Therapist Name Role Phone Cheryl Fitzpatrick MD Primary Care Provider + Nick Castellanos Unavailable Unavailable Reason for Visit * Reason Onset Date Comments PT1 10/27/2023 Encounter Details Date Type Department Care Team (Late st Contact Info) Description 10/27/2023 Telephone [facility] MEDICINE [address] [place], [place] [phone] Cheryl Fitzpatrick MD [address] [place], [place] [phone] PT1 Social History Tobacco Use Types Packs/Day Years Used Date Smoking Tobacco: Former Cigarettes Q uit: 12/20/2022 Passive Smoke Exposure: Current Smokeless Tobacco: Never Comments:Pt is vaping Alcohol Use Standard Drinks/Week Comments Never 0 (1 standard drink = 0.6 oz pur e alcohol) Depression Answer Date Recorded Patient Health Questionnaire-9 Score 11 10/03/2023 Patient Health Questionnaire-9 Score 11 10/03/2023 Last PHQ-9: Questionnaire Data Not on file 0 10/03/2023 Housing Stability Answer Date Recorded What is your housing situation today? I do not have housing (Staying with others, in a hotel, in a intermediate, living outside on the street, on a [...] living? Yes, it has kept me from non-medical meetings, work, or getting things that I need 05/31/2023 Utilities Answer Date Recorded In the past 12 months, has t he electric, gas, oil or water company threatened to shut off services in your home? No 06/07/2023 Depression Answer Date Recorded Patient Health Questionnaire-2 Score 4 10/03/2023 Comments No Sex and Gender Information Value Date Recorded Sex Assigned at Female 06/21/2022 10:37 AM EDT Legal Sex Female 10:37 AM EDT Gender Identity Female 06/21/2022 10:37 AM EDT Sexual Orientation Straight 06/21/2022 10 :37 AM EDT documented as of this encounter Miscellaneous Notes * Telephone Encounter - Maria De Jesus Epstein - 11/09/2023 1:24 PM EDT PT-1 Request [id number] Pending for [address] [facility] * Telephone Encounter - Maria De Jesus Epstein - 11/09/2023 1:20 PM EDT PT-1 Request [id number] Pending for [facility] * Telephone Encounter - Maria De Jesus Epstein - 11/09/2023 1:17 PM EDT PT-1 Request [id number] Pending For [facility] * Telephone Encounter - Shireen Johns - 10/27/2023 9:28 AM EST PT1 renewals Date: 11/09/2023 Time: 1:30 Visits: n/a Address: [address] [address] Facility: [facility] Wheel Chair: No Top Carrier Needed: No Date: n/a Time: n/a Visits: n/a Address: [address] [address] Facility: [facility] Multiple Specialties Wheel Chair: no Top Carrier Needed: no Date: n/a Time: n/a Visits: n/a Address: [address] [facility] Facility: [facility] [employer] [facility] Wheel Chair: no Top Carrier Needed: no documented in this encounter Plan of Treatment Upcoming Encounters Date Type Department Care Team (Late st Contact Info) Description 10/09/2024 1:00 PM EST Office Visit [facility] MEDICINE [address] [place] [address] Cheryl Fitzpatrick MD [address] [place] [address] 10/17/2024 2:30 PM EST Office Visit [facility] ADULT DENTAL [address] [place] [address] Hema Hill DDS [address] [place] [address] 01/17/2025 1:00 PM EDT Office Visit [facility] OPTOMETRY [address] [place] [address] Salena Garcia OD [address] [place] [address] documented as of this encounter Goals Goal [...] Assessment Noted Time PHQ-9 Depression Total Score: 11 024 9:34 AM EST documented as of this encounter Care Teams Esthetician/Skin Therapist Relationship Specialty Start Date End Date Cheryl Fitzpatrick MD [address] [place] [address] PCP - General Internal Medicine 09/10/22 Nick Castellanos FNP [address] [place] [address] Nurse Practitioner Family Medicine 07/04/23 Court Shay Youth Ministry Director 11/11/23 02/10/24 Apolonia Mars animal care attendant Youth Ministry DirectorCommercial Shrimping Captain 11/16/23 documented as of this encounter
--- OUTSIDE RECORDS SUMMARY | 2024-10-04 08:10 | XMS_ITS | Encounter Summary ---
Author Organization [employer] Address [address] [facility] 7t [place] [address] Care Team Providers Care Shop Teacher Name Role Phone Cheryl Fitzpatrick MD Primary Care Provider + Nick Castellanos Unavailable Unavailable Reason for Visit * Reason Comments Med Refill Encounter Details Date Type Department Care Team (Late st Contact Info) Description 09/29/2023 Refill [facility] [address] [place] [address] Nick Castellanos FNP Type 2 diabetes mellitus with hyperglycemia, with long-term current use of insulin ([facility]) Social History Tobacco Use Types Packs/Day Years [...] with others, in a hotel, in a long-term, living outside on the street, on a [...] 1:00 PM EST Office Visit [facility] MEDICINE [address] [place] [address] Cheryl Fitzpatrick MD [address] [place] [address] 10/17/2024 2:30 PM EST Office Visit [facility] ADULT DENTAL [address] [place] [address] Hema Hill DDS [address] [place] [address] 01/17/2025 1:00 PM EDT Office Visit [facility] OPTOMETRY [address] [place] [address] Salena Garcia, OD [address] [place] [address] documented as of this encounter Goals Goal Patient Goal Type Associated Problems Recent Progress Patient-Stated? Author Blood Pressure < 140/90 Blood Pressure 128/80(2024 3:30 PM EST) No YongsKenzie Pineda, PharmD Hemoglobin A1c < 7 Result Component 8.3( 10:54 AM EST) No Kenzie Tran PharmD documented as of this encounter Visit Diagnoses Diagnosis Type 2 diabetes mellitus with hyperglycemia, with long-term current use of insulin ([facility]) documented in this encounter Additional Health Concerns Assessment Noted Time PHQ-9 Depression Total Score: 8 08/23/19 24 11:27 AM EST documented as of this encounter Care Teams Shop Teacher Relationship Specialty Start Date End Date Cheryl Fitzpatrick MD [address] [place] [address] PCP - General Internal Medicine 09/10/22 Nick Castellanos FNP [address] [place] [address] Nurse Practitioner Family Medicine 07/04/23 [address] Product Engineering Manager 11/11/23 02/10/24 Apolonia Mars resident care manager rn Product Engineering ManagerAnalytical Lab Technician 11/16/23 documented as of this encounter
--- OUTSIDE RECORDS SUMMARY | 2024-10-04 08:10 | XMS_ITS | Encounter Summary ---
Author Organization [employer] Address [address] [facility] [address] 7t [place] [address] Care Team Providers Care Distribution Specialist Name Role Phone Cheryl Fitzpatrick MD Primary Care Provider + Nick Castellanos Unavailable Unavailable Reason for Visit * Reason Comments Med Refill Encounter Details Date Type Department Care Team (Late st Contact Info) Description 09/29/2023 Refill [facility] [address] [place], [place] [phone] Cheryl Fitzpatrick MD [address] [place], [place] [phone] Anxiety; Migraine with aura and without status [...] 10/09/2024 1:00 PM EST Office Visit [facility]INE [address] [place] [address] Cheryl Fitzpatrick MD [address] [place] [address] 10/17/2024 2:30 PM EST Office Visit [facility] ADULT DENTAL [address] [place] [address] Hema Hill DDS [address] [place] [address] 01/17/2025 1:00 PM EDT Office Visit [facility] OPTOMETRY [address] [place] [address] Salena Garcia, OD [address] [place] [address] documented as of this encounter Goals Goal [...] Time PHQ-9 Depression Total Score: 8 08/23/19 11:27 AM EST documented as of this encounter Care Teams Distribution Specialist Relationship Specialty Start Date End Date Cheryl Fitzpatrick MD [address] [place] [address] PCP - General Internal Medicine 09/10/22 Nick Castellanos FNP [address] [place] [address] Nurse Practitioner Family Medicine 07/04/23 [address] S3B Multi Sensor Operator 11/11/23 02/10/24 Apolonia Mars critical care rn S3B Multi Sensor OperatorFinancial Market Dealer 11/16/23 documented as of this encounter
--- OUTSIDE RECORDS SUMMARY | 2024-10-04 08:10 | XMS_ITS | Encounter Summary ---
Author Organization [employer] Address [address] [facility] [address] [place] [address] Care Team Providers Care Geological Scout Name Role Phone Cheryl Fitzpatrick MD Primary Care Provider + Nick Castellanos Unavailable Unavailable Encounter Details Date Type Department Care Team (Late st Contact Info) Description 09/04/2024 Orders Only [facility] [address], [place] [phone] Cheryl Fitzpatrick MD [address] [place], [place] [phone] Social History Tobacco Use Types Packs/Day Years [...] 10/09/2024 1:00 PM EST Office Visit [facility] [address] [place] [address] Cheryl Fitzpatrick MD [address] [place] [address] 10/17/2024 2:30 PM EST Office Visit [facility] [address] [place] [address] Hema Hill DDS [address] [place] [address] 01/17/2025 1:00 PM EDT Office Visit [facility] [address] [place] [address] Salena Garcia, OD [address] [place] [address] documented as of this encounter Goals Goal Patient Goal Type Associated Problems Recent Progress Patient-Stated? Author Blood Pressure < 140/90 Blood Pressure 128/80(2024 3:30 PM EST) No YongsKenzie Pineda, PharmD Hemoglobin A1c < 7 Result Component 8.3( 10:54 AM EST) No Kenzie Tran, PharmD documented as of this encounter Procedures Procedure Name Priority Date/Time Associated Diagnosis Comments BI MAMMOGRAM DIAGNOSTIC RIGHT Routine 09/04/2024 11:15 AM EST documented in this encounter Results * Mammogram Diagnostic Right (09/04/2024 11:15 AM EST) Anatomical Region Laterality Modality Breast Right Mammography 09/04/2024 11:1 5 AM EST Narrative 09/04/2024 11:58 AM EST ? [facility] ? [address] ?[place] [address] ? Mammography Report ? Signed ? Patient: Fay Cashsol ?MR# ?? : [id number] ? : 1975 ?Acct:[id number] ? Age/Sex: 48 / F ?ADM Date: 01/14/25 ? Loc: HO.MAMMO ? Attending Dr: Cheryl Fitzpatrick MD ? Ordering Physician: Cheryl Fitzpatrick MD ?Results: 3.6MProbably Benign Finding - Short 6 M F/U ?? Suggested ? Date of Service: 09/04/24 ?Follow Up: 6 Month F/U ? Procedure(s): MM diagnostic mammo unilat RT ?? Accession Number(s): [id number] ? cc: Cheryl Fitzpatrick MD ? EXAMINATION: ?? MM DIAGNOSTIC DIGITAL MAMMOGRAPHY, RIGHT ? CLINICAL INFORMATION: ? 6 month follow-up for right calcifications. ? COMPARISON: ?? Mammography: Comparison is made with available prior examinations. ? TECHNIQUE: ?? Digital mammography is performed in craniocaudal and mediolateral ?? oblique views along with computer-aided detection (CAD). ? FINDINGS: ?? The breasts are heterogeneously dense, which may obscure small masses ?? (ACR BI-RADS breast composition Category c). ?? There are faint scattered punctate calcifications in the upper inner ?? breast posterior depth. These are not significantly changed from prior ?? 6 months ago magnification views. ?? No suspicious masses or other abnormal findings. ? Results are provided to the patient at time of visit by the ?? technologist. ? MM/MM diagnostic mammo unilat RT ?? IMPRESSION: ?? Grouped calcifications in the right breast are not significantly ?? changed from prior magnification view 6 months ago. ?? Recommend six-month follow-up with magnification views on the patient ?? is due for bilateral mammography. ? ASSESSMENT: ? BI-RADS BI-RADS 3 - Probably benign finding(s) - 6 month follow-up ?? suggested ? RECOMMENDATION: ?? 6 Month F/U ? This patient's information was entered into a reminder system with a ?? target due date for their next mammogram. ? Electronically signed by: ??Winifred Perez DO ??09/04/2024 11:55 AM EST ? Dictated By: ?Winifred Perez DO ? Signed By: ?<Electronically signed by Winifred Perez, DO in OV> ? 09/04/24 1155 ? DD/ 1115 ? TD/TT: 09/04/24 1145 ? Time Study Engineer: ? Procedure Note Donotuseinterpreter, Image - 09/04/2024 Bettie [facility] [address] [place] [address] Mammography Report Signed Patient: Augusto Cash# : [id number] : 1975Acct:[id number] Age/Sex: 48 / FADM Date: 09/04/24 Loc: HO.MAMMO Attending Dr: Cheryl Fitzpatrick MD Ordering Physician: Cheryl Fitzpatrick MD Results: 3.6MProbably Benign Finding - Short 6 M F/U Suggested Date of Service: 09/04/24Follow Up: 6 Month F/U Procedure(s): MM diagnostic mammo unilat RT Accession Number(s): [id number] cc: Cheryl Fitzpatrick MD EXAMINATION: MM DIAGNOSTIC DIGITAL MAMMOGRAPHY, RIGHT CLINICAL INFORMATION: 6 month follow-up for right calcifications. COMPARISON: Mammography: Comparison is made with available prior examinations. TECHNIQUE: Digital mammography is performed in craniocaudal and mediolateral oblique views along with computer-aided detection (CAD). FINDINGS: The breasts are heterogeneously dense, which may obscure small masses (ACR BI-RADS breast composition Category c). There are faint scattered punctate calcifications in the upper inner breast posterior depth. These are not significantly changed from prior 6 months ago magnification views. No suspicious masses or other abnormal findings. Results are provided to the patient at time of visit by the technologist. MM/MM diagnostic mammo unilat RT IMPRESSION: Grouped calcifications in the right breast are not significantly changed from prior magnification view 6 months ago. Recommend six-month follow-up with magnification views on the patient is due for bilateral mammography. ASSESSMENT: BI-RADS BI-RADS 3 - Probably benign finding(s) - 6 month follow-up suggested RECOMMENDATION: 6 Month F/U This patient's information was entered into a reminder system with a target due date for their next mammogram. Electronically signed by: Winifred Perez DO 09/04/2024 11:55 AM EST RP Dictated By: Winifred Perez DO Signed By: <Electronically signed by Winifred Perez DO in OV> 09/04/24 1155 DD/ 1115 TD/TT: 09/04/24 1145 Time Study Engineer: us Cheryl Fitzpatrick MD IMG BI PROCEDURES Final Result documented in this encounter Visit Diagnoses Not on filedocumented in this encounter Additional Health Concerns Assessment Noted Time PHQ-9 Depression Total Score: 10 024 10:01 AM EDT documented as of this encounter Care Teams Geological Scout Relationship Specialty Start Date End Date Cheryl Fitzpatrick MD [address] [place] [address] PCP - General Internal Medicine 09/10/22 Nick Castellanos FNP [address] [place] [address] Nurse Practitioner Family Medicine 07/04/23 Apolonia Mars critical care nurse Machine FixerEnvironmental Project Manager 11/16/23 documented as of this encounter
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
--- OUTSIDE RECORDS SUMMARY | 2024-10-04 08:10 | XMS_ITS | Encounter Summary ---
Author Organization [email or web address] Address [address] [facility] [address] [place] [address] Care Team Providers Care Pallet Stone Inserter Name Role Phone Cheryl Fitzpatrick MD Primary Care Provider + Nick Castellanos Unavailable Unavailable Reason for Visit * Reason Onset Date Comments Paperwork/Forms 10/19/2023 Encounter Details Date Type Department Care Team ([facility] st Contact Info) Description 10/19/2023 Telephone [facility] MEDICINE [address] [place], [place] [phone] Cheryl Fitzpatrick MD [address] [place], [place] [phone] Paperwork/Forms Social History Tobacco Use Types Packs/Day Years [...] encounter Miscellaneous Notes * Telephone Encounter - Yancy Morales - 10/19/2023 10:16 AM EST Tc from pt requesting status on welfare paperwork. Pt brought paperwork to medical records about 3 weeks ago and has not heard any updates since. States she has until 11/12 to bring paperwork to welfare before they close her case. Wildlife Biology Technician advised pt she has an appointment this Tuesday (10/19) with provider. Please contact pt at [phone] (Faroese) documented in this encounter Plan of Treatment Upcoming Encounters Date Type Department Care Team (Late st Contact Info) Description 10/09/2024 1:00 PM EST Office Visit [facility] MEDICINE [address] [place] [address] Cheryl Fitzpatrick MD [address] [place] [address] 10/17/2024 2:30 PM EST Office Visit [facility] ADULT DENTAL [address] [place] [address] Hema Hill DDS [address] [place] [address] 01/17/2025 1:00 PM EDT Office Visit [facility] OPTOMETRY [address] [place] [address] Salena Garcia OD [address] [place] [address] documented as of this encounter Goals Goal [...] documented as of this encounter Care Teams Pallet Stone Inserter Relationship Specialty Start Date End Date Cheryl Fitzpatrick MD [address] [place] [id number] PCP - General Internal Medicine 09/10/22 Nick Castellanos FNP [address] [place] [address] Nurse Practitioner Family Medicine 07/04/23 Court Shay Site Safety Representative 11/11/23 02/10/24 Apolonia Mars healthcare management Site Safety RepresentativeReject Opener 11/16/23 documented as of this encounter
--- OUTSIDE RECORDS SUMMARY | 2024-10-04 08:10 | XMS_ITS | Encounter Summary ---
Author Organization [employer] Address [address] [facility] [address] [place] [address] Care Team Providers Care Wool Hanker Name Role Phone Cheryl Fitzpatrick MD Primary Care Provider + Nick Castellanos Unavailable Unavailable Reason for Visit * Reason Comments Med Refill Encounter Details Date Type Department Care Team (Late st Contact Info) Description 11/10/2023 Refill [facility] MEDICINE [address] [place] [address] Nick Castellanos FNP Type 2 diabetes mellitus with hyperglycemia, with long-term current use of insulin ([facility]) Social History Tobacco Use Types Packs/Day Years [...] with others, in a hotel, in a longterm, living outside on the street, on a [...] Description 10/09/2024 1:00 PM EST Office Visit [facility] MEDICINE [address] [place] [address] Cheryl Fitzpatrick MD [address] [place] [address] 10/17/2024 2:30 PM EST Office Visit [facility] ADULT DENTAL [address] [place] [address] Hema Hill DDS [address] [place] [address] 01/17/2025 1:00 PM EDT Office Visit [facility] OPTOMETRY [address] [place] [phone] Salena Garcia, OD [address] [place] [address] documented as of this encounter Goals Goal [...] hyperglycemia, with long-term current use of insulin ([facility]) documented in this encounter Additional Health Concerns Assessment Noted Time PHQ-9 Depression Total Score: 11 024 9:34 AM EST documented as of this encounter Care Teams Wool Hanker Relationship Specialty Start Date End Date Cheryl Fitzpatrick MD [address] [place] [address] PCP - General Internal Medicine 09/10/22 Nick Castellanos FNP [address] [place] [address] Nurse Practitioner Family Medicine 07/04/23 Court Shay Manager Medicare Marketing 11/11/23 02/10/24 Apolonia Mars personal care worker Manager Medicare MarketingLoading And Unloading Supervisor 11/16/23 documented as of this encounter
--- OUTSIDE RECORDS SUMMARY | 2024-10-04 08:10 | XMS_ITS | Clinical Summary ---
Author Organization [employer] Address [address] [place] [address] Care Team Providers Care Log Buyer Name Role Phone Cheryl Fitzpatrick MD Primary Care Provider + Nick Castellanos DEVELOPMENT EXPERT Unavailable Unavailable Allergies Active Allergy Reactions Criticality Noted Date Comments Sulfa Antibiotics Unknown 09/17/2022 Sulfadiazine 09/10/2022 Dulaglutide Diarrhea Medium 01/06/2023 Medications * This document contains information received from the source organization and may not represent a complete record from that organization. Blood Glucose Monitoring Suppl (FreeStyle Lite) deviceIndicatio ns:Type 2 diabetes mellitus with hyperglycemia, with long-term current use of insulin ([facility]),Anxie ty Test daily before all meals/snacks and once before bedtime. 1 each 023 Active Additional Information Patient taking differently: Testing once daily in AM, Reported on 06/14/2023 Blood Pressure Monitoring (Blood Pressure Kit) deviceIndicatio ns:Elevated blood pressure reading Check BP 2x per week 1 each 023 Active Additional Information Patient not taking.Reported on 06/14/2023 triamcinolone (Kenalog) 0.1 % creamIndication s:Flexural eczema APPLY A THIN LAYER TOPICALLY TO AFFECTED AREA(S) TWICE DAILY NEEDED 30 g 2 023 Active albuterol 108 (90 Base) MCG/ACT inhaler inhale 2 puff by inhalation route every 4 - 6 hours as needed Active amitriptyline (Elavil) 100 MG tablet TAKE 1 TABLET BY MOUTH AT BEDTIME 023 Active pantoprazole (ProtoNix) 40 MG EC tablet TAKE 1 TABLET BY MOUTH EVERY MORNING 023 Active Continuous Blood Gluc Door To Door Salesman (FreeStyle Gagandeep 2 [place]) deviceIndicatio ns:Type 2 diabetes mellitus with hyperglycemia, with long-term current use of insulin ([facility]) Use to test blood sugar as directed. 1 each 023 Active lidocaine-prilo eloy (Emla) 2.5-2.5 % cream Apply topically every 12 (twelve) hours if needed for mild pain. 30 g 023 Active Clotrimazole Anti-Fungal 1 % creamIndication s:Candidal vaginitis APPLY TO THE AFFECTED AREA(S) TOPICALLY TWICE DAILY 45 g 2 023 Active Mometasone Furoate (Asmanex HFA) 200 MCG/ACT aerosolIndicati ons:Mild intermittent asthma with exacerbation INHALE 2 PUFFS BY MOUTH TWICE DAILY IN THE MORNING AND AT BEDTIME. RINSE MOUTH AFTER USING.. DO NOT SWALLOW 13 g 3 024 Active glucose blood (FreeStyle Precision Britton Test) test stripIndication s:Type 2 diabetes mellitus with hyperglycemia, with long-term current use of insulin ([facility]) USE DIRECTED TO TEST BLOOD SUGAR NEEDED FOR HYPOGLYCEMIA 50 strip 5 024 Active buPROPion XL (Wellbutrin XL) 300 MG 24 hr tabletIndicatio ns:Type 2 diabetes mellitus with hyperglycemia, with long-term current use of insulin ([facility]),Anxie ty Take 1 tablet (300 mg) by mouth in the morning. Do not crush, chew, or split. 90 tablet 3 024 Active clonazePAM (KlonoPIN) 2 MG tabletIndicatio ns:Type 2 diabetes mellitus with hyperglycemia, with long-term current use of insulin ([facility]) Take 1 tablet (2 mg) by mouth every 8 (eight) hours. 84 tablet 5 06/11/2 024 Active QUEtiapine (SEROquel) 300 MG tabletIndicatio ns:Type 2 diabetes mellitus with hyperglycemia, with long-term current use of insulin ([facility]) Take 0.5 tablets (150 mg) by mouth in the morning AND 2 tablets (600 mg) at bedtime. 225 tablet 3 Active traZODone (Desyrel) 100 MG tabletIndicatio ns:Type 2 diabetes mellitus with hyperglycemia, with long-term current use of insulin ([facility]),Anxie ty TAKE 2 TABLET BY MOUTH QHS 180 tablet 3 Active Continuous Glucose Sensor (FreeStyle Gagandeep 2 Sensor) miscIndications :Type 2 diabetes mellitus with hyperglycemia, with long-term current use of insulin ([facility]) USE TO TEST BLOOD SUGAR FOUR TIMES DAILY. CHANGE EVERY 14 DAYS 2 each 5 Active losartan-hydroC HLOROthiazide (Hyzaar) 50-12.5 MG tabletIndicatio ns:Primary hypertension TAKE 1 TABLET BY MOUTH EVERY MORNING 90 tablet 1 Active Jardiance 25 MGIndications:T ype 2 diabetes mellitus with hyperglycemia, with long-term current use of insulin ([facility]) TAKE 1 TABLET BY MOUTH EVERY MORNING 90 tablet 1 Active acetaminophen (Tylenol) 500 MG tablet Take 1 tablet (500 mg) by mouth every 6 (six) hours if needed for mild pain for up to 20 doses. 20 tablet Active ibuprofen 600 MG tablet Take 1 tablet (600 mg) by mouth every 6 (six) hours if needed for mild pain for up to 20 doses. 20 tablet 024 Active senna-docusate sodium (Senokot-S) 8.6-50 MG tablet Take 1 tablet by mouth if needed each day for constipation. 90 tablet 024 2024 Active insulin degludec (Tresiba FlexTouch) 100 UNIT/ML injectionIndica tions:Type 2 diabetes mellitus with hyperglycemia, with long-term current use of insulin ([facility]) INJECT 72 UNITS SUBCUTANEOUSLY EVERY EVENING 30 mL 7 Active insulin lispro (HumaLOG) 100 UNIT/ML injectionIndica tions:Type 2 diabetes mellitus with hyperglycemia, with long-term current use of insulin ([facility]),Anxie ty INJECT 10 UNITS SUBCUTANEOUSLY BEFORE MEALS 15 mL 7 024 Active TRUEplus Lancets 33G miscIndications :Type 2 diabetes mellitus with hyperglycemia, with long-term current use of insulin ([facility]),Anxie ty TEST BLOOD SUGAR BEFORE MEALS AND SNACKS AND BEFORE BEDTIME 100 each 11 024 Active Pentips Generic Pen [place] 32G X 4 MM miscIndications :Type 2 diabetes mellitus with hyperglycemia, with long-term current use of insulin ([facility]),Anxie ty USE FOUR TIMES DAILY 100 each 11 025 Active topiramate 50 MG tabletIndicatio ns:Migraine with aura and without status migrainosus, not intractable TAKE 1 TABLET BY MOUTH AT BEDTIME 90 tablet 025 Active gabapentin (Neurontin) 800 MG tabletIndicatio ns:Anxiety,Migr milana with aura and without status migrainosus, not intractable TAKE 1 TABLET BY MOUTH THREE TIMES DAILY IN THE MORNING, AT NOON, AND AT BEDTIME 90 tablet 5 025 Active Pentips 32G X 4 MM miscIndications :Type 2 diabetes mellitus with hyperglycemia, with long-term current use of insulin ([facility]),Anxie ty USE FOUR TIMES DAILY 100 each 024 2024 Discontinued gabapentin (Neurontin) 800 MG tabletIndicatio ns:Anxiety,Migr milana with aura and without status migrainosus, not intractable TAKE 1 TABLET BY MOUTH THREE TIMES DAILY IN THE MORNING, AT NOON, AND AT BEDTIME 90 tablet 5 024 2024 Discontinued topiramate 50 MG tabletIndicatio ns:Migraine with aura and without status migrainosus, not intractable TAKE 1 TABLET BY MOUTH AT BEDTIME 90 tablet 024 2024 Discontinued Active Problems Problem Noted Date Diagnosed Date Elevated liver enzymes 09/04/2024 Mixed hyperlipidemia 09/04/2024 Complete edentulism 07/27/2024 Encounter for preventive health examination 06/23 Assessment & Plan (07/17/2024 1:22 PM EST): Discussed with patient re increase fresh fruit and vegetable intake. Counseled re moderate exercise as tolerated, up to 20min/d Patient feels safe at home. PAP smear: UTD, next one due in 2028. Mammogram: UTD, next one due in July 2024. Eye exam: Overdue, appointment r/s for August 2023. CRC screen: UTD, next one due in 2027. Lipids/FBS: UTD, next one due in August 2024. Vaccinations: Declined Covid and Influenza immunizations today, will FU on TDAP next appointment, other immunizations UTD. Dental visit : UTD, she is undergoing denture fitting. Class 1 obesity due to exces s calories with serious comorbidity and body mass index (BMI) of 30.0 to 30.9 in adult 07/17/2024 Assessment & Plan (07/17/2024 1:23 PM EST): Discussed re weight reduction options including exercise, life style modifications, diet and referral to audio visual specialist. Recommended to decrease soda and sugary beverage consumption, increase protein intake with meals (at least 1 portion of protein with each meal) to assist with satiety, increase dietary fiber Recommended at least 150 min/week of moderate intensity exercise. Dental root caries 06/06/2024 Breast calcification, right 02/02/2024 Assessment & Plan (04/25/2024 3:29 PM EDT): She had a right Dx mammogram on 02/09/2024, showed benign calcifications. FU mammogram on 01/2025 Assessment & Plan (03/13/2024 1:42 PM EDT): On mammogram dated 11/2023 Has appt for right breast addtl views and US next week. Mid back pain, chronic 02/02/2024 Assessment & Plan (03/13/2024 1:42 PM EDT): Refer to PT, see above Cervical spine arthritis 02/02/2024 Assessment & Plan (04/19/2024 11:39 AM EDT): Has not started PT, information about PT provider given to Pt to call and reschedule appt. Continue Tylenol + Naproxen for pain prn, apply heat to affected area. Follow up in 3 months. Assessment & Plan (03/13/2024 1:35 PM EDT): Agreed to go to PT Advised to come to acupuncture clinic. Take tylenol and flexeril prn Apply heat to affected area. Arthritis of left hip 02/02/2024 Drug-induced constipation 01/06/2024 Assessment & Plan (01/06/2024 12:55 PM EDT): Related to Seroquel use + ?IBS Start senna 1/d prn Continue colace bid Encouraged re increased water and fiber intake Mild intermittent asthma with exacerbation 01/05 Assessment & Plan (01/06/2024 12:55 PM EDT): I will restart Asmanexinh and fu next mo Continue Albuterol prn I congratulated her for quitting smoking, use nicotine gum prn Urinary incontinence 12/20/2023 Assessment & Plan (12/20/2023 3:05 PM EDT): - patient referred to urology by PCP - improve glycemic control Midline low back pain without sciatica Assessment & Plan (03/13/2024 1:40 PM EDT): Agreed to PT, Advised to come to acupuncture clinic Continue Meloxicam/tylenol daily prn Assessment & Plan (01/06/2024 1:00 PM EDT): Xrays showed OA spine and hips Start Meloxicam daily x 1w then prn only Declined PT today. I recommended to come to acupuncture clinic FU with rheumatology and with me in 4w Assessment & Plan (12/20/2023 3:06 PM EDT): - will evaluate with XR - discussed treatment options with the patient - patient is unable to commit to acupuncture, PT, or pain management at this time due to lack of transportation - recommended massage and heat - follow-up with PCP after XR Encounter for screening mamm ogram for malignant neoplasm of breast 12/14/2023 Assessment & Plan (12/14/2023 11:32 AM EDT): - order mammogram Encounter for cervical Pap smear with pelvic exa m 12/14/2023 Assessment & Plan (12/14/2023 12:05 PM EDT): Status post DONNA due to malignancy, f/u pap results Pelvic exam today wnl FU pap smear results/HPV/STI testing and will call back PRN positive results or FU in 3 months Pt feels safe at home no concern for DV/STDs Counseled regarding STI prevention If today's pap smear/co testing is normal next one will be due in 5 years. 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 10/21/2023 Assessment & Plan (10/21/2023 11:33 AM EST): Seen recently by compressed gas equipment mechanic, fu every 6 m A1c is improving but not at goal, FU with credit risk review officer (I gave pt phone number to schedule appointment, I will refer to showcase trimmer to support her to keep her appointment) No change in medication and fu with credit risk review officer Hypertension 10/17/2023 Housing situation unstable 10/17/2023 Pituitary adenoma 10/17/2023 Assessment & Plan (10/21/2023 11:33 AM EST): Resolved, MRI on 08/12/23 did not show any abnormalities Myositis 07/22/2023 Assessment & Plan (07/22/2023 12:43 PM EST): Repeat labs and FU w/ rheumatology Recommended to come for acupuncture Take Tylenol PRN Cont Tx of fibro myalgia Neck pain 06/26/2023 Assessment & Plan (12/20/2023 3:04 PM EDT): - discussed treatment options with the patient - patient is unable to commit to acupuncture, PT, or pain management at this time due to lack of transportation - recommended massage and heat - follow-up with PCP after XR Assessment & Plan (06/26/2023 8:43 AM EST): Pt reports acute on chronic neck /shoulder pain with worsening weakness sensation in both arms -10/2022 RF ,ESR neg, 2020 HIV and RPR neg Possible fibromyalgia in part but she does have decrease bl arm weakness ,given bl seems less likely from spinal neurologic compromise but still a possibility . Also to consider Polymyalgia rheumatica, myositis -start XR shoudlers bl and XR neck -labs today -tylenol prn and ibuprofen prn -has ast home -wants to hold on PT for now -warm compression -px emla cream -avoid muscle relaxants for risk with mx sedating meds that she is already taking -f PCP for images and labs . May need MRI of neck if labs and XR are not suggestive of any specific dx -noted brain abnormalities in recent MRI -w degenerative changes --per PCP records pt has apt w neurologist to follow up this Papilloma 06/24/2023 Retained dental root 05/18/2023 Major depressive disorder, r ecurrent episode, severe with mood-congruent psychotic features 04/08/2023 Assessment & Plan (01/31/2024 11:35 AM EDT): And anxious distress. Differential includes PTSD with nightmares and flashbacks, or primary psychosis (previously diagnosed with Schizophrenia). Multiple hospitalizations. Multimodal hallucinations (auditory, visual, tactile). Few social supports, difficult relationship with adult daughter. Serious complex medical conditions with weakness and chronic pain. Psychiatric medications were started by provider in [place], with high-dose Clonazepam. She previously experienced severe [...] but she will be referred to new [facility] pyschiatric prescriber. She gives verbal permission to [...] psychiatric symptoms. Any issues or concerns, contact [facility]. All her questions were answered and I have wished her well. She agrees with the plan. Assessment & Plan (12/01/2023 3:08 PM EDT): And anxious distress. Differential includes PTSD with nightmares and flashbacks, or primary psychosis (previously diagnosed with Schizophrenia). Multiple hospitalizations. Multimodal hallucinations (auditory, visual, tactile). Few social supports, difficult relationship with adult daughter. Serious complex medical conditions with weakness and chronic pain. Psychiatric medications were started by provider in [place], with high-dose Clonazepam. She previously experienced severe withdrawal symptoms when discontinued Clonazepam, is aware she should not do this. Coping reasonably well, prefers not to change medications r/t hx GUILLORY with multiple meds. Nightmares and auditory hallucinations persist. She is on significant psychiatric polypharmacy, no changes at this time. Continue Seroquel 150 mg in the morning and 600 mg at bedtime. Wellbutrin XL 300 mg in am, Trazodone 200 mg at bedtime. Continue Clonazepam 2 mg TID (would be good to very gradually taper this down if possible, as symptoms are better controlled). She also gets Amitriptyline 100 mg at bedtime per Neurologist; and Topiramate 50 mg at bedtime, Gabapentin 800 mg TID per PCP. On 08/23/2023 provider informed the patient that I would be retiring. Meanwhile, F/U with me in 2 months. F/U with PCP and with care mgt as usual. Recommend she try to reconnect with therapist. It is clear she would not be able to work based on psychiatric symptoms. She agrees with the plan. Assessment & Plan (10/03/2023 10:38 AM EST): And anxious distress. Differential includes PTSD with nightmares and flashbacks, or primary psychosis (previously diagnosed with Schizophrenia). Multiple hospitalizations. Multimodal hallucinations (auditory, visual, tactile). Few social supports, difficult relationship with adult daughter. Serious complex medical conditions with weakness and chronic pain. Psychiatric medications were started by provider in [place], with high-dose Clonazepam. She previously experienced severe withdrawal symptoms when discontinued Clonazepam, is aware she should not do this. Sleeping better, although still having nightmares. Auditory hallucinations persist, visual and tactile less frequent. She is on significant psychiatric polypharmacy, no additional medications will be started at this time. Continue Seroquel 150 mg in the morning and 600 mg at bedtime. Wellbutrin XL 300 mg in am, Trazodone 200 mg at bedtime. Continue Clonazepam 2 mg TID (would be good to very gradually taper this down if possible, as symptoms are better controlled). She also gets Amitriptyline 100 mg at bedtime per Neurologist; and Topiramate 50 mg at bedtime, Gabapentin 800 mg TID per PCP. On 08/23/2023 provider informed the patient that I would be retiring. Suggest she speak with therapist about referral to agency prescriber. Meanwhile, F/U with me in 1 months. For letters and forms, she should F/U with [facility] Medical Records. It is clear she would not be able to work based on psychiatric symptoms. She agrees with the plan. Assessment & Plan (08/23/2023 12:40 PM EST): And anxious distress. Differential includes PTSD with nightmares and flashbacks. Multiple hospitalizations. Multimodal hallucinations (auditory, visual, tactile). Few social supports, difficult relationship with adult daughter. Serious complex medical conditions with weakness and chronic pain. Psychiatric medications were started by provider in [place], with high-dose Clonazepam. She previously experienced severe withdrawal symptoms when discontinued Clonazepam, is aware she should not do this. Doing a little better. Auditory hallucinations persist, visual and tactile much less frequent. Still not sleeping well with nightmares. Will now increase to Seroquel 150 mg in the morning and 600 mg at bedtime. Urged to take when she is ready to go to sleep and not wait until she wakes up during the night. Continue Wellbutrin XL 300 mg in am, Trazodone 200 mg at bedtime. Continue Clonazepam 2 mg TID (plan to very gradually taper this down as symptoms are better controlled). She also gets Amitriptyline 100 mg at bedtime per Neurologist; and Topiramate 50 mg at bedtime, Gabapentin 800 mg TID per PCP. Today 08/23/2023 provider informed the patient that I would be retiring. Meanwhile, F/U with me in approx 1 month, and with new therapist as planned. Will provide letter supporting need to keep her cat as emotional support animal. She will pursue the SSI application. She agrees with the plan. Assessment & Plan (07/19/2023 9:56 AM EST): And anxious distress. Differential includes PTSD with nightmares and flashbacks. Multiple hospitalizations. Multimodal hallucinations (auditory, visual, tactile). Few social supports, difficult relationship with adult daughter. Serious complex medical conditions with weakness and chronic pain. Psychiatric medications were started by provider in [place], with high-dose Clonazepam. She previously experienced severe withdrawal symptoms when discontinued Clonazepam, is aware she should not do this. Poor sleep, nightmares, hallucinations persist. Will now increase to Seroquel 400 mg at bedtime. Continue Seroquel 100 mg in am, Wellbutrin XL 300 mg in am, Trazodone 200 mg at bedtime. Continue Clonazepam 2 mg TID (plan to very gradually taper this down as symptoms are better controlled). She also gets Amitriptyline 100 mg at bedtime per Neurologist; and Topiramate 50 mg at bedtime, Gabapentin 800 mg TID per PCP. Will check on status of referral for outpatient counseling. Will provide letter supporting need to keep her cat as emotional support animal. She will pursue the SSI application. F/U with me in 1 month. She agrees with the plan. Assessment & Plan (05/09/2023 2:28 PM EDT): And anxious distress. Differential includes PTSD with nightmares and flashbacks. Multiple hospitalizations. Multimodal hallucinations (auditory, visual, tactile). Living with her adult daughter with the expectation that pt would care for the 3 yr old grandchild, but this has been difficult r/t sleepiness attributed to psychiatric medications. Pt will now need to leave that home since her room will be given to the [id number], and pt anticipates becoming homeless. Has been on current med regimen for years, experienced severe withdrawal symptoms when discontinued high-dose Clonazepam, is aware she should not do this. Still not sleeping well consistently r/t pain of fibromyalgia, also nightmares. Reluctant to increase Seroquel r/t weight gain. Consider adding Prazosin, but she is already on significant psychiatric polypharmacy. Will wait until next visit when hopefully she will be more settled in terms of housing. Continue Clonazepam 2 mg TID (plan to very gradually taper this down as symptoms are better controlled). Continue Seroquel 100 mg in am and 300 mg at bedtime. Continue Wellbutrin XL 300 mg daily in am, Trazodone 200 mg at bedtime. She also gets Amitriptyline 100 mg at bedtime per Neurologist, and Gabapentin 800 mg TID per PCP. Will check on status of referral for outpatient counseling. F/U with me in 1 month. She agrees with the plan. Assessment & Plan (04/08/2023 12:29 PM EDT): And anxious distress. Differential includes PTSD with nightmares and flashbacks. Multiple hospitalizations. Multimodal hallucinations (auditory, visual, tactile). Living with her adult daughter with the expectation that pt would care for the 3 yr old grandchild, but this has been difficult r/t sleepiness attributed to psychiatric medications. Pt will now need to leave that home since her room will be given to the [id number], and pt anticipates becoming homeless. Has been on current med regimen for years, experienced severe withdrawal symptoms when discontinued high-dose Clonazepam, is aware she should not do this. At this time will continue total daily dose of Clonazepam 2 mg TID, plan to very gradually taper this down as symptoms are better controlled. Continue total daily dose of Seroquel but for decreased daytime sedation, will now take Seroquel 100 mg in am and 300 mg at bedtime. Continue Wellbutrin XL 300 mg daily in am, Trazodone 200 mg at bedtime. She also gets Amitriptyline 100 mg at bedtime per Neurologist, and Gabapentin 800 mg TID per PCP. Will be referred for outpatient counseling. F/U with me in 3-4 weeks. She agrees with the plan. Bronchitis 03/24/2023 Assessment & Plan (03/24/2023 1:41 PM EDT): will treat with augmentin x 7 days use albuterol inhaler q6 hours x 3 days then prn take tylenol prn body aches, fever, or headache Frequent falls 03/24/2023 Assessment & Plan (03/24/2023 1:40 PM EDT): most recent ones may be related to [...] it is difficult for her to access [facility] every week fu with neurology next month Housing instability, currently housed 02/17/2023 Assessment & Plan (05/06/2023 1:51 PM EDT): Has to leave her daughter's home in 30d Will refer to [facility] to help her in the process of finding a room or long term I suggested to place her cat with the [facility] shelters for cats, at least temporarily while she finds a suitable place to live in. Assessment & Plan (03/24/2023 1:40 PM EDT): living temporarily at her daughters, wants to move out list of shelters provider to patient she will fu with CM Pt has a cat and she is aware that she may have difficulty keeping her cat with her during this transition Assessment & Plan (02/17/2023 11:54 AM EDT): continues to move to different places each month caremanager to FU and assist with housing applications Anxiety 02/17/2023 Assessment & Plan (02/17/2023 11:54 AM EDT): See MDD Non-restorable tooth 02/08/2023 Severe dental caries 02/08/2023 Left ovarian cyst 12/31/2022 Assessment & Plan (12/14/2023 12:03 PM EDT): - resolved on recent pelvic ultrasound Assessment & Plan (10/21/2023 11:35 AM EST): Order fu pelvic US Pt needs to bring info regarding previous hysterectomy. Will assess it for additional pelvic exams Assessment & Plan (12/31/2022 11:49 AM EDT): Pt w hx of cervical ca -Obtained records from recent hospitalization : CT abd /pelvis w contrast 12/25/2022: no acute intraabdominal pathology seen -but found 5.4x4.5x3.8 cm left adnexal structure containing 1 cm calcification -rec pelvic US to further eval. -send message today to her PCP to be aware of finding and to f up after hospital discharge with US if not following this finding before White matter abnormality on MRI of brain 023 Assessment & Plan (06/10/2023 11:39 AM EDT): MRI shows stable WM from previous MRI, question of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 hyperglycemia, with long-term current use of insulin ([facility]) LIPID PANEL WITH REFLEX TO DIRECT LDL Routine 08/31/2024 2:09 PM EST Type 2 diabetes mellitus with hyperglycemia, with long-term current use of insulin (CMS/HCC) ALBUMIN, RANDOM URINE W/CREATININE Routine 08/31/2024 2:09 PM EST Type 2 diabetes mellitus with hyperglycemia, with long-term current use of insulin (CMS/HCC) BITE REGISTRATION Routine 08/27/2024 11: 00 AM EST CASE PRESENTATION, DETAILED AND EXTENSIVE TREATMENT PLANNING Routine 07/27/2024 9:00 AM EST PANORAMIC RADIOGRAPHIC IMAGE Routine 07/27/2024 9:00 AM EST PERIODIC ORAL EVALUATION - ESTABLISHED PATIENT Routine 07/27/2024 9:00 AM EST DENTURE IMPRESSION Routine 07/27/2024 9: 00 AM EST Complete edentulism, unspecified edentulism class POCT GLYCATED HEMOGLOBIN, TOTAL Routine 07/17/2024 10:54 AM EST Type 2 diabetes mellitus with hyperglycemia, with long-term current use of insulin (CMS/HCC) POCT GLUCOSE Routine 07/17/2024 10:53 AM EST Type 2 diabetes mellitus with hyperglycemia, with long-term current use of insulin (CMS/HCC) PAP SMEAR Routine 12/14/2023 11:23 AM EDT History of cervical cancer Encounter for cervical Pap smear with pelvic exam HEPATITIS C AB W/REFL TO HCV RNA, QN, PCR Routine 06/29/2023 12:21 PM EST Myopathy HIV 1/2 ANTIGEN/ANTIBODY, FOURTH GENERATION W/RFL Routine 06/29/2023 12:21 PM EST Myopathy HM COLONOSCOPY Routine 04/27/2023 IMAGE-GUIDED PAP W/AGE BASED SCR,W/CT/NG/TRICH Routine 11/29/2022 10:52 AM EDT Cervical cancer screening Screening examination for venereal disease INTRAORAL - COMPLETE SERIES OF RADIOGRAPHIC IMAGES Routine 09/17/2022 9:30 AM EST Dental caries from Last 3 Months or Most Recently Relevant to Health Maintenance Results * Mammogram Diagnostic Right (09/04/2024 11:15 AM EST) Anatomical Region Laterality Modality Breast Right Mammography 09/04/2024 11:1 5 AM EST Narrative 09/04/2024 11:58 AM EST ? [facility] ? [address] ?[place] [address] ? Mammography Report ? Signed ? Patient: Dhillon Manautou,Lizet ?MR# ?? : [id number] ? : 1975 ?Acct:[id number] ? Age/Sex: 48 / F ?ADM Date: 01/14/25 ? Loc: HO.MAMMO ? Attending Dr: Cheryl Fitzpatrick MD ? Ordering Physician: Cheryl Fitzpatrick MD ?Results: 3.6MProbably Benign Finding - Short 6 M F/U ?? Suggested ? Date of Service: 09/04/24 ?Follow Up: 6 Month F/U ? Procedure(s): MM diagnostic mammo unilat RT ?? Accession Number(s): [id number] ? cc: Cheryl Fitzpatrick MD ? EXAMINATION: [...] DD/ 1115 ? TD/TT: 09/04/24 1145 ? Barman: ? Procedure Note Yehuda Velasquez - 09/04/[address] [facility] [address] [place] [address] Mammography Report Signed Patient: Augusto Cash# : [id number] : 1975Acct:[id number] Age/Sex: 48 / FADM Date: 09/04/24 Loc: HO.MAMMO Attending Dr: Cheryl Fitzpatrick MD Ordering Physician: Cheryl Fitzpatrick MD Results: 3.6MProbably Benign Finding - Short 6 M F/U Suggested Date of Service: 09/04/24Follow Up: 6 Month F/U Procedure(s): MM diagnostic mammo unilat RT Accession Number(s): [id number] cc: Cheryl Fitzpatrick MD EXAMINATION: MM DIAGNOSTIC [...] Winifred Perez DO 09/04/2024 11:55 AM EST Dictated By: Winifred Perez DO Signed By: <Electronically signed by Winifred Perez DO in OV> 09/04/24 1155 DD/ 1115 TD/TT: 09/04/24 1145 Barman: Cheryl Fitzpatrick MD IM BI PROCEDURES Final Result * Vitamin D, 25-Hydroxy, Total, Immunoassay (08/31/2024 2:09 PM EST) Vitamin D 25-OH Total 99.0 >30 ng/mL [facility] Comment:Health Based Referen ce Values*< 20 ng/mL Dsetmwivz57-73 ng/mL Insufficient> 30 ng/mL Sufficient*Nohemy QUILES. N Engl J Med. 2007;357:266-280Care must be taken in interpreting Vitamin D results fromdifferent laboratories and methodologies. Published datademonstrated that results from patients undergoinghemodialysis may show a negative bias when tested withvarious automated 25-OH vitamin D assays when compared toLC-MS/MS.When testing samples from patients whose predominant form ofVitamin D is Vitamin D2, such as patients receiving VitaminD2 supplementation, results that are subtherapeutic shouldbe confirmed with another method such as LC-MS/MS. Blood 08/31/2024 2:09 PM EST 08/31/2024 4:04 PM EST Cheryl Fitzpatrick MD LAB BLOOD ORDERABLES Fin al Result [facility] [address] [place] [address] [phone] * T-SPOT??.TB (08/31/2024 2:09 PM EST) Pathologist [facility] T Spot TB Negative Negative [facility] Comment:A negative test resu lt does not exclude the possibilityof exposure to or infection with Mycobacteriumtuberculosis (M. tuberculosis). Patients with recentexposure to TB infected individuals exhibiting anegative T-SPOT.TB result should be considered forretesting within 6 weeks or if other relevant clinicalsymptoms indicate. Results from T-SPOT.TB testing mustbe used in conjunction with each individual'sepidemiological history, current medical status,and results of other diagnostic evaluations.The T-SPOT.TB test is qualitative and results arereported as positive, borderline, or negative, giventhat the test controls perform as expected. In linewith the Centers for Disease Control and Prevention's2010 recommendation to report quantitative measurementsalongside the qualitative result, the laboratoryprovides spot counts for informational purposes only.The T-SPOT.TB test should not be interpreted as aquantitative test. TS PANEL A 1 [facility] TS PANEL B 0 [facility] Negative Control Passed [facility] Positive Control Passed [facility] Comment:For additional infor chanell, please refer tohttp://education.Meetings.io/faq/WOA073(This link is being provided for informational/educational purposes only.)THIS TEST WAS PERFORMED AT:[id number] [place] [address]LATIPNNLIO GARZA MD,PHD 08/31/2024 2:09 PM EST 08/31/2024 4:04 PM EST us Cheryl Fitzpatrick MD LAB BLOOD ORDERABLES Fin al Result Performing Organization Address [facility] Co de Phone Number [facility] [address] [place] [phone] * (ABNORMAL) Lipid Panel with Reflex to Direct LDL (08/31/2024 2:09 PM EST) Triglycerides 606(H) <150 mg/dL [facility] Comment:Moderate Lipemia.Mik irable Triglyceride: less than 150 mg/dLBorderline High Triglyceride 150-199 mg/dLHigh Triglyceride: 200-499 mg/dLVery High Triglyceride: greater than or equal to 5OO mg/dL Cholesterol 228(H) <200 mg/dL [facility] Comment:Desirable Cholestero l: less than 200 mg/dLBorderline High Cholesterol: 200-239 mg/dLHigh Cholesterol: greater than 239 mg/dL LDL Cholesterol Calculated TNP <100 mg/dL [facility] Comment:Unable to calculate the LDL. The formula of Friedwald,Soto, and Rehana is only valid if the triglycerides areless than 400 mg/dl. HDL Cholesterol 41 >40 mg/dL [facility] Comment:Desirable HDL: great er than 40 mg/dL Note: This HDL assay may give artificially low results in patients with liver disease. Blood 08/31/2024 2:09 PM EST 08/31/2024 4:04 PM EST us Cheryl Fitzpatrick MD LAB BLOOD ORDERABLES Fin al Result Performing Organization Address [facility] Co de Phone Number [facility] [address] [place] [phone] * Albumin, Random Urine W/Creatinine (08/31/2024 2:09 PM EST) Creatinine, Urine 31.14 mg/dL [facility] Microalbumin Urine <5.0 mg/L [facility] Microalbum Creatinine Ratio Ur TNP <30 ug/mg cr [facility] Comment:Unable to calculate albumin/creatinine ratio due to lowmicroalbumin or creatinine result. Urine (Urine, Random) 08/31/2024 2:09 PM EST 08/31/2024 4:00 PM EST us Cheryl Fitzpatrick MD LAB URINE ORDERABLES Fin al Result [facility] [address] [place], [place] [phone] * (ABNORMAL) Comprehensive Metabolic Panel (08/31/2024 2:09 PM EST) Sodium 138 135 - 145 mmol/L [facility] Potassium 3.8 3.3 - 5.1 mmol/L [facility] Chloride 107 96 - 108 mmol/L [facility] Carbon Dioxide 24 22 - 29 mmol/L [facility] Anion Gap 11(L) 12 - 20 [facility] Urea Nitrogen (BUN) 13 9 - 16 mg/dL [facility] Creatinine, Serum 0.71 0.5 - 1.4 mg/dL [facility] Estimated Glomerular Filt Rate >60 [facility] Comment:Chronic Kidney Disea se: Estimated GFR < 60 mL/min/1.59g5Iooehn Kidney Disease: Estimated GFR < 15 mL/min/1.73m2 Glucose 153(H) 60 - 115 mg/dL [facility] Calcium 9.4 8.4 - 10.2 mg/dL [facility] Bilirubin, Total 0.2 0.0 - 1.0 mg/dL [facility] Aspartate Amino Transferase 38(H) 5 - 31 U/L [facility] Alanine Aminotransferase 63(H) 0 - 31 U/L [facility] Total Protein 8.0 6.5 - 8.0 g/dL [facility] Albumin Level 4.4 3.5 - 5.0 g/dL [facility] Alkaline Phosphatase 94 39 - 117 U/L [facility] Blood Venous blood specimen / Unknown 08/31/2024 2:09 PM EST 08/31/2024 4:04 PM EST Cheryl Fitzpatrick MD LAB BLOOD ORDERABLES Fin al Result [facility] [address] [place] [phone] * (ABNORMAL) POCT HGB A1C (07/17/2024 10:54 AM EST) Hemoglobin A1C 8.3(A) 4.0 - 6.0 % QC Media Lot # [id number] Lot# Expiration Date Blood 07/17/2024 10:5 4 AM EST Cheryl Fitzpatrick MD POINT OF CARE TEST ENTER /EDIT ORDERABLES Final Result * POCT Glucose (07/17/2024 10:53 AM EST) Glucose Blood, POC 170 60 - 200 mg/dL [employer] Media Lot # [id number] Lot# Expiration Date ,025 Blood Capillary blood specimen / Unknown 07/17/2024 10:53 AM EST Cheryl Fitzpatrick MD POINT OF CARE TEST ENTER /EDIT ORDERABLES Final Result * Pap Smear (12/14/2023 11:23 AM EDT) Swab Cervix uteri structure / Unknown 12/14/2023 11:23 AM EDT 12/14/2023 2:20 PM EDT Narrative [facility] - 01/02/2024 11:54 AM EDT ----- ------- Name: Lizet Cash ? Age/Sex: 48/F ? : 1975 Unit#: [id number] ?? Attend Dr: Cheryl Fitzpatrick MD ?Re12/14/23 ?Status: DEP REF ? Location: HO.LNP ?Disch: ? ----- ------- SPEC : [id number] ? RECD: 12/14/23 ? STATUS: ??SOUT ? REQ NUM: [id number] ? JUANCARLOS: 12/14/23 ? SUBM DR: Cheryl Fitzpatrick MD ? ENTERED: ??12/14/233443 ?SP TYPE: Pap Smr ?OTHR : ? ORDERED: ??Pap Smear ? Interpretation ?? Satisfactory for evaluation. ?? Negative for intraepithelial lesion or malignancy. ?Clinical Information LMP: Unknown date Previous PAP test: Unknown date/findings Other history: Hx cervical CA 5y ago ? Material Received ?? ThinPrep-Vaginal/Cervical ----- ------- Signed (signature on file) CLARISA Lu (ASCP) 01/02/24 1154 ? ----- ------- ? END OF REPORT ? us Cheryl Fitzpatrick MD LAB CYTOLOGY ORDERABLES Final Result [facility] [address] [place] [phone] * Hepatitis C Antibody with Reflex to HCV, RNA, Quantitative, Real-Time PCR (06/29/2023 12:21 PM EST) Hepatitis C Antibody Nonreactive Nonreactive [facility] Comment:Antibodies to HCV no t detected; does not exclude early acuteHCV infection. Blood Venous blood specimen / Unknown 06/29/2023 12:21 PM EST 06/29/2023 1:19 PM EST Yaneli Sandoval MD LAB BLOOD ORDERAB LES Final Result Performing Organization Address City/[facility]/ZIP Co de Phone Number [facility] [address] [place] [phone] * HIV-1/2 Antigen and Antibodies, Fourth Generation, with Reflexes (06/29/2023 12:21 PM EST) [facility] HIV AB/AG Nonreactive Nonreactive [facility] Comment:HIV-1 p24 Ag and/or HIV-1/HIV-2 Ab not detected.A test result that is nonreactive does not exclude thepossibility of exposure to or infection with HIV-1 and/orHIV-2. Nonreactive results in this assay for individualswith prior exposure to HIV-1 and/or HIV-2 may be due toantigen and antibody levels that are below the limit ofdetection of this assay.The [employer] Plus HIV Ag/Ab Combo assay result andsupplemental assay results should be interpreted inconjunction with the patient's clinical presentation,history and other laboratory results. If the results areinconsistent with clinical evidence, additional testing issuggested to confirm the result. Blood Venous blood specimen / Unknown 06/29/2023 12:21 PM EST 06/29/2023 1:19 PM EST us Yaneli Sandoval MD LAB BLOOD ORDERAB LES Final Result Performing Organization Address City/[facility]/ZIP Co de Phone Number [facility] [address] [place] [phone] * (ABNORMAL) Hm Colonoscopy (04/27/2023) [facility] Colonoscopy Abnormal(A ) Normal [facility] Cheryl Fitzpatrick MD HEALTH MAINTENANCE Final Result [facility] [address] [place] [phone] [phone] * Image-Guided Pap with Age-Based Screening??with CT/NG,??Trichomonas (11/29/2022 10:52 AM EDT) Comment [facility] Comment: This order for age-based cervical cancer and STI screening follows ACOG guidelines(PB 168, 140, HOP229). See individual assays for performing site location. Clinical Information: HISTORY OF HYST DUE YUSUF [facility] LMP: NONE GIVEN [facility] Prev. PAP: YES [facility] Prev. BX: NONE GIVEN [facility] SOURCE: None given [facility] Statement Of Adequacy: SATISFACTORY FOR EVALUATION [facility] Interpretation/Re sult: Negative for intraepithelial lesion or malignancy. [facility] COMMENT: This Pap test has been evaluated with computer assisted technology. [facility] Supply Chain Technician: [employer] Comment: KF, CT(ASCP) CT screening location: [address] ??[phone] Review Supply Chain Technician: [facility] Comment: BLC,CT(ASCP) CT screening location: [address] ??[phone] (Always Message) Que st [facility] Comment: EXPLANATORY NOTE: The Pap is a screening test for cervical cancer. It is not a diagnostic test and is subject to false negative and false positive results. It is most reliable when a satisfactory sample, regularly obtained, is submitted with relevant clinical findings and history, and when the Pap result is evaluated along with historic and current clinical information. HPV nRNA E6/E7 Not Detected Not Detected [facility] Comment: Methodology: Curing Press Maintainer-Mediated Amplification This assay detects E6/E7 viral messenger RNA (mRNA) from 14 high-risk HPV types (16,18,31,33,35,39,45,51,52,56,58,59,66,68). Cervical sources are required for HPV testing. If a vaginal source from a patient who has had a total hysterectomy with removal of cervix was submitted, please contact the testing laboratory for alternative testing options. For additional information, please refer to http://2C2P.Meetings.io/faq/LAA832c4 (This link if provided for information/ educational purposes only.) Chlamydia trachomatis RNA, TMA, Urogenital NOT DETECTED NOT DETECTED [facility] Neisseria gonorrhoeae RNA, TMA, Urogenital NOT DETECTED NOT DETECTED [facility] (Always Message) Que [facility] Comment: The analytical performance characteristics of this assay, when used to test SurePath(TM) specimens have been determined by [facility]. The modifications have not been cleared or approved by the FDA. This assay has been validated pursuant to the CLIA regulations and is used for clinical purposes. For additional information, please refer to https://PresenceLearning/faq/MRM059 (This link is being provided for information/ educational purposes only.) Trichomonas vaginalis, QL, TMA, PAP Vial NOT DETECTED NOT DETECTED [facility] Comment: The analytical performance characteristics of this assay have been determined by [facility]. The modifications have not been cleared or approved by the FDA. This assay has been validated pursuant to the CLIA regulations and is used for clinical purposes. For additional information, please refer to [email or web address].Meetings.io/ faq/Trichomonastma (This link is being provided for information/ educational purposes only.) Cytology specimen container (physical object) 11/29/2022 10:52 AM EDT 11/30/2022 12:36 AM EDT Leeann Wood CNM LAB CYTOLOGY ORDERABLES F inal Result [facility] [address] [facility], [place] [phone] [facility] [address] [place] [phone] from Last 3 Months or Most Recently Relevant to Health Maintenance Insurance [place] [facility] [place] [id number] [place] [id number] [place] [id number] Care Teams Log Buyer Relationship Specialty Start Date End Date Cheryl Fitzpatrick MD [address] [place] [address] PCP - General Internal Medicine 09/10/22 Nick Castellanos FNP [address] [place] [address] Nurse Practitioner Family Medicine 07/04/23 Apolonia Mars md do resident urgent care Loan Officer AssistantRail Signal Worker 11/16/23
--- OUTSIDE RECORDS SUMMARY | 2024-10-04 08:10 | XMS_ITS | Encounter Summary ---
Author Organization [employer] Address [address] [facility] 7[address] [place] [address] Care Team Providers Care Farmer And Grazier Name Role Phone Cheryl Fitzpatrick MD Primary Care Provider + Nick Castellanos Unavailable Unavailable Encounter Details Date Type Department Care Team (Late st Contact Info) Description 09/04/2024 Orders Only [facility] MEDICINE [address] [place], [place] [phone] Cheryl Fitzpatrick MD [address] [place], [place] [phone] Elevated liver enzymes (Primary Dx); Mixed hyperlipidemia Social History Tobacco Use Types Packs/Day Years [...] as of this encounter Progress Notes * Cheryl Fitzpatrick MD - 09/04/2024 8:11 PM EST Labs on 08/31/24 showed significant increase on lipids (specially triglycerides) which are most likely related to Dm but also to higher dose of Seroquel? Please contact MH provider (Lily Redmond APRN) and see if she considers that Seroquel dose can be lowered a bit or start other meds that do not interfere as much with her metabolic conditions (DM [...] 1:00 PM EST Office Visit [facility] MEDICINE [address] [place] [address] Cheryl Fitzpatrick MD [address] [place] [address] 10/17/2024 2:30 PM EST Office Visit [facility] ADULT DENTAL [address] [place] [address] Hema Hill DDS [address] [place] [address] 01/17/2025 1:00 PM EDT Office Visit [facility] OPTOMETRY [address] [place] [address] Salena Garcia OD [address] [place] [address] Scheduled Orders Name Type Priority Associated Diagnoses Orde r Schedule Gamma Glutamyl Transferase (GGT) Lab Routine Elevated liver enzymes Mixed hyperlipidemia Expected: 09/04/2024 (Approximate), Expires: 09/04/2025 Hepatic Function Panel Lab Routine Elevated liver enzymes Mixed hyperlipidemia Expected: 09/04/2024 (Approximate), Expires: 09/04/2025 Lipid Panel with Reflex to Direct LDL Lab Routine Elevated liver enzymes Mixed hyperlipidemia Expected: 09/04/2024 (Approximate), Expires: 09/04/2025 Hepatitis Panel, General Lab Routine Elevated liver enzymes Mixed hyperlipidemia Expected: 09/04/2024 (Approximate), Expires: 09/04/2025 HIV-1/2 Antigen and Antibodies, Fourth Generation, with Reflexes Lab Routine Elevated liver enzymes Mixed hyperlipidemia Expected: 09/04/2024 (Approximate), Expires: 09/04/2025 CBC auto differential Lab Routine Elevated liver enzymes Mixed hyperlipidemia Expected: 09/04/2024 (Approximate), Expires: 09/04/2025 documented as of this encounter Goals Goal Patient Goal Type Associated Problems Recent Progress Patient-Stated? Author Blood Pressure < 140/90 Blood Pressure 128/80(2024 3:30 PM EST) No Kenzie Tran, PharmD Hemoglobin A1c < 7 Result Component 8.3( 10:54 AM EST) No Kenzie Tran PharmD documented as of this encounter Visit Diagnoses Diagnosis Elevated liver enzymes- Primary Other nonspecific abnormal serum enzyme levels Mixed hyperlipidemia documented in this encounter Additional Health Concerns Assessment Noted Time PHQ-9 Depression Total Score: 10 024 10:01 AM EDT documented as of this encounter Care Teams Farmer And Grazier Relationship Specialty Start Date End Date Cheryl Fitzpatrick MD [address] [place] [address] PCP - General Internal Medicine 09/10/22 Nick Castellanos FNP [address] [place] [phone] Nurse Practitioner Family Medicine 07/04/23 Apolonia Mars urgent care technician Finishing Room SupervisorAddiction Professional 11/16/23 documented as of this encounter
--- OUTSIDE RECORDS SUMMARY | 2024-10-04 08:10 | XMS_ITS | Encounter Summary ---
Author Organization [employer] Address [address] [facility] [address] 7[address] [place] [address] Care Team Providers Care Jig Inspector Name Role Phone Cheryl Fitzpatrick MD Primary Care Provider + Nick Castellanos Unavailable Unavailable Reason for Visit * Reason Comments Med Refill Encounter Details Date Type Department Care Team (Late st Contact Info) Description 09/29/2023 Refill [facility] MEDICINE [address] [place], [place] [phone] Cheryl Fitzpatrick MD [address] [place], [place] [phone] Anxiety; Migraine with aura and without status [...] Office Visit [facility] MEDICINE [address] [place] [address] Cheryl Fitzpatrick MD [address] [place] [address] 10/17/2024 2:30 PM EST Office Visit [facility] ADULT DENTAL [address] [place] [address] Hema Hill DDS [address] [place] [address] 01/17/2025 1:00 PM EDT Office Visit [facility] OPTOMETRY [address] [place] [address] Salena Garcia, OD [address] [place] [address] documented as of this encounter Goals Goal [...] documented as of this encounter Care Teams Jig Inspector Relationship Specialty Start Date End Date Cheryl Fitzpatrick MD [address] [place] [address] PCP - General Internal Medicine 09/10/22 Nick Castellanos FNP [address] [place] [address] Nurse Practitioner Family Medicine 07/04/23 Court Shay Deck Officer 11/11/23 02/10/24 Apolonia Mars career education teacher Deck OfficerE Commerce Web Developer 11/16/23 documented as of this encounter
[2024-10-04 11:30] LABS: MANUAL DIFF FLAG NO
[2024-10-04 11:36] LABS: Basophils Percent Auto 0.5 % (0-2); Eosinophils Absolute Auto 0.2 X10*3/uL (0.0-0.4); Eosinophils Percent Auto 2.6 % (0-4); Hematocrit 41.4 % (37.0-47.0); Hemoglobin 13.8 g/dl (12.0-16.0); Imm Gran Abs Auto 0.02 X10*3/uL (0.00-0.03); Imm Gran Pct Auto 0.3 % (0.0-0.4); Lymphocytes Absolute Auto 2.1 X10*3/uL (1.2-4.9); Mean Corpuscular HGB Conc 33.3 g/dl (31.0-35.0); Mean Corpuscular Hemoglobin 28.9 pg (27.0-33.0); Mean Corpuscular Volume 86.6 fL (80.0-98.0); Mean Platelet Volume 10.5 fL (9.4-12.3); Monocytes Absolute Auto 0.3 X10*3/uL (0.1-1.2); Monocytes Percent Auto 5.9 % (2-11); Neutrophils Absolute Auto 3.1 x10*3/uL (2.0-8.3); Neutrophils Percent Auto 54.7 % (45-73); Platelet Count 318 X10*3/uL (160-400); Red Blood Count 4.78 X10*6/uL (4.20-5.50); White Blood Count 5.8 X10*3/uL (4.8-10.8)
[2024-10-04 11:52] LABS: Alanine Aminotransferase 44 U/L (0-31); Albumin Level 4.5 g/dL (3.5-5.0); Alkaline Phosphatase 79 U/L (39-117); Aspartate Amino Transferase 34 U/L (5-31); Bilirubin Direct < 0.2 mg/dL (0.0-0.5); Bilirubin Total 0.2 mg/dL (0.0-1.0); Cholesterol 236 mg/dL (<200); Gamma Glutamyl Transpeptidase 27 U/L (7-33); HDL Cholesterol 44 mg/dL (>40); LDL Cholesterol Calculated 152 mg/dL (<100); Total Protein 7.6 g/dL (6.5-8.0); Triglycerides 200 mg/dL (<150)
[2024-10-04 12:08] LABS: HBS Num1 12.18 mIU/mL (0-7.99); HBc Num1 0.09 S/CO (0.00-0.79); HBsAGNum1 0.29 S/CO (0.00-0.99); HIV AB/AG Nonreactive (Nonreactive); HIV Num 1 0.07 S/CO (0.00-0.99); Hepatitis A Antibody IgM 0.17 Index (0-0.79); Hepatitis B Core Antibody Nonreactive (Nonreactive); Hepatitis B Surface Antigen Negative (Negative); ~HepC Num1 0.43 S/CO (0.00-0.79); ~Hepatitis A Antibody IgM Nonreactive (Nonreactive); ~Hepatitis B Surface Antibody REACTIVE (Nonreactive); ~Hepatitis C Antibody Nonreactive (Nonreactive)
[2024-10-04 12:27] LABS: Reflex LDLD? No
== END 2024-10-04 08:06 | disposition home or self-care (01) ==
LOC: HO.HHCL 08:05
PROVIDERS: Visit Provider Internal Medicine
DX: R74.8 Abnormal levels of other serum enzymes (principal); E78.2 Mixed hyperlipidemia
CPT/HCPCS: 36415; 80061; 80076; 82977; 85025; 86704; 86706; 86709; 86803; 87340; 87389

== ENCOUNTER 2024-11-29 08:16 | Outpatient (REF) | payer MEDICAID, SELFPAY ==
--- OUTSIDE RECORDS SUMMARY | 2024-11-29 08:22 | XMS_ITS | Encounter Summary ---
Author Organization [employer] Address 75 [facility] 7t [place] [address] Care Team Providers Care Prop And Effects Designer Name Role Phone Cheryl Fitzpatrick MD Primary Care Provider + Nick Castellanos Unavailable Unavailable Reason for Visit * Reason Onset Date Comments PT1 11/19/2024 Encounter Details Date Type Department Care Team (Late st Contact Info) Description 11/19/2024 Telephone [facility] MEDICINE [address] [place], [place] [phone] Cheryl Fitzpatrick MD [address] [place], [place] [phone] PT1 Social History Tobacco Use Types Packs/Day [...] encounter Miscellaneous Notes * Telephone Encounter - Margo Causey - 11/19/2024 9:24 AM EDT 1 of 4 Patient calling requesting PT1 Home Address verified: Y/N: Yes Provider name or facility name: [address] [place] [address]. [facility] Escort needed: Y/N: No Do you have a wheelchair: Y/N: No Cane If yes- Manual or electric: N/A Visits: (5x monthly) 2 of 4 Patient calling requesting PT1 Home Address verified: Y/N: Yes Provider name or facility name: [address] [place] [address] - [facility] Escort needed: Y/N: No Do you have a wheelchair: Y/N: No Cane If yes- Manual or electric: N/A Visits: (2x monthly) 3 of 4 Patient calling requesting PT1 Home Address verified: Y/N: Yes Provider name or facility name: [address] [place] [address] - [facility] Escort needed: Y/N: No Do you have a wheelchair: Y/N: No Cane If yes- Manual or electric: N/A Visits: (2x monthly) 4 of 4 Patient calling requesting PT1 Home Address verified: Y/N: Yes Provider name or facility name: [address] [facility] [place] [address] [facility] Escort needed: Y/N: No Do you have a wheelchair: Y/N: No Cane If yes- Manual or electric: N/A Visits: (7x monthly) documented in this encounter Plan of Treatment Upcoming Encounters Date Type Department Care Team (Late st Contact Info) Description 12/07/2024 9:45 AM EDT Office Visit [facility] MEDICINE [address] [place] [address] Cheryl Fitzpatrick MD [address] [place] [address] 12/21/2024 10:00 AM EDT Office Visit [facility] ADULT DENTAL [address] [place] [address] Hema Hill DDS [address] [place] [address] 01/17/2025 1:00 PM EDT Office Visit [facility] OPTOMETRY [address] [place] [address] Salena Garcia, ELLIS [address] [place] [address] documented as of this encounter Goals Goal Patient Goal Type Associated Problems Recent Progress Patient-Stated? Author Blood Pressure < 140/90 Blood Pressure 126/74(2024 1:24 PM EDT) No Kenzie Tran, PharmD Hemoglobin A1c < 7 Result Component 8.3( 1:13 PM EST) No Kenzie Tran PharmD documented as of this encounter Visit Diagnoses Not on filedocumented in this encounter Additional Health Concerns Assessment Noted Time PHQ-9 Depression Total Score: 10 024 10:01 AM EDT documented as of this encounter Care Teams Prop And Effects Designer Relationship Specialty Start Date End Date Cheryl Fitzpatrick MD [address] [place] [address] PCP - General Internal Medicine 09/10/22 Nick Castellanos FNP [address] [place] [address] Nurse Practitioner Family Medicine 07/04/23 Apolonia Mars property caretaker Senior RecruiterParalegal Secretary 11/16/23 documented as of this encounter
--- OUTSIDE RECORDS SUMMARY | 2024-11-29 08:22 | XMS_ITS | Encounter Summary ---
Author Organization [employer] Address 75 [facility] [address] 7t [place] [address] Care Team Providers Care Junior Linux Systems Administrator Name Role Phone Cheryl Fitzpatrick MD Primary Care Provider + Nick Castellanos Unavailable Unavailable Reason for Visit * Reason Comments Med Refill Encounter Details Date Type Department Care Team (Late st Contact Info) Description 09/13/2024 Refill [facility] MEDICINE [address] [place], [place] [phone] Cheryl Fitzpatrick MD [address] [place], [place] [phone] Anxiety; Migraine with aura and without status [...] Description 12/07/2024 9:45 AM EDT Office Visit [facility] MEDICINE [address] [place] [address] Cheryl Fitzpatrick MD [address] [place] [address] 12/21/2024 10:00 AM EDT Office Visit [facility] ADULT DENTAL [address] [place] [address] Hema Hill DDS [address] [place] [address] 01/17/2025 1:00 PM EDT Office Visit [facility] OPTOMETRY [address] [place] [address] Salena Garcia, OD [address] [place] [address] documented as of this encounter Goals Goal Patient Goal Type Associated Problems Recent Progress Patient-Stated? Author Blood Pressure < 140/90 Blood Pressure 126/74(2024 1:24 PM EDT) No Piers-Gambl e, Kenzie, PharmD Hemoglobin A1c < 7 Result Component 8.3( 1:13 PM EST) No Piers-Gambl e, Kenzie, PharmD documented as of this encounter Visit Diagnoses Diagnosis Anxiety Anxiety state, unspecified Migraine with aura and without status migrainosus, not intractable documented in this encounter Additional Health Concerns Assessment Noted Time PHQ-9 Depression Total Score: 10 024 10:01 AM EDT documented as of this encounter Care Teams Junior Linux Systems Administrator Relationship Specialty Start Date End Date Cheryl Fitzpatrick MD [address] [place] [address] PCP - General Internal Medicine 09/10/22 Nick Castellanos FNP [address] [place] [address] Nurse Practitioner Family Medicine 07/04/23 Apolonia Mars childcare center administrator Facilities Mechanical Design EngineerHuman Resources Associate 11/16/23 documented as of this encounter
--- OUTSIDE RECORDS SUMMARY | 2024-11-29 08:22 | XMS_ITS | Encounter Summary ---
Author Organization [employer] Address 75 [facility] 7t [place] [address] Care Team Providers Care Automation Driver Name Role Phone Cheryl Fitzpatrick MD Primary Care Provider + Nick Castellanos Unavailable Unavailable Encounter Details Date Type Department Care Team (Late st Contact Info) Description 09/11/2024 Telephone [facility] MEDICINE [address] [place], [place] [phone] Cheryl Fitzpatrick MD [address] [place], [place] [phone] Social History Tobacco Use Types Packs/Day Years [...] Description 12/07/2024 9:45 AM EDT Office Visit [facility] MEDICINE [address] [place] [address] Cheryl Fitzpatrick MD [address] [place] [address] 12/21/2024 10:00 AM EDT Office Visit [facility] ADULT DENTAL [address] [place] [address] Hema Hill DDS [address] [place] [address] 01/17/2025 1:00 PM EDT Office Visit [facility] OPTOMETRY [address] [place] [address] Salena Garcia, OD [address] [place] [address] documented as of this encounter Goals Goal [...] documented as of this encounter Care Teams Automation Driver Relationship Specialty Start Date End Date Cheryl Fitzpatrick MD [address] [place] [address] PCP - General Internal Medicine 09/10/22 Nick Castellanso FNP [address] [place] [address] Nurse Practitioner Family Medicine 07/04/23 Apolonia Mars nurse healthcare manager Buyer AgentInsulation Estimator 11/16/23 documented as of this encounter
--- OUTSIDE RECORDS SUMMARY | 2024-11-29 08:22 | XMS_ITS | Encounter Summary ---
Author Organization [employer] Address 75 [facility] 7t [place] [address] Care Team Providers Care Environmental Field Professional Name Role Phone Cheryl Fitzpatrick MD Primary Care Provider + Nick Castellanos Unavailable Unavailable Reason for Visit * Reason Onset Date Comments Care Management 11/28/2024 C3CM- F/U call # 3 Encounter Details Date Type Department Care Team (Late st Contact Info) Description 11/28/2024 Telephone [facility] MEDICINE [address] [place], [place] [phone] Cheryl Fitzpatrick MD [address] [place], [place] [phone] Care Management (C3CM- F/U call # 3) Social History Tobacco Use Types Packs/Day Years [...] with others, in a hotel, in a half-way, living outside on the street, on a [...] encounter Miscellaneous Notes * Telephone Encounter - Franck Khan RN - 11/28/2024 2:02 PM EDT CM Franck Khan RN and FIOR Harp placed outbound call to patient. Patient's name, and address confirmed. Patient states is doing well with no recent illnesses or emergency room visits. Pt reports attending endocrinology appointment on 11/21/24. Pt reports that her insulin was increased and was given a new sliding scale. Visit notes in the chart: Tresiba was increased to 75 Units daily, given a new sliding scale for lispro, and no change for Jardiance 25 mg daily. Pt reports that prior to the change her BS was running above 300 but has improved with new change. Pt stated that her BS this morning was 175. Pt also reports attending tele psych appt on 11/22/24. Pt states that her Seroquel was dis continued and started on trazadone 100 mg 1-2 tabs PO PRN. Visit notes in the chart as well. Pt to continue Abilify 20 mg in the morning, and to continue taking amitriptyline 150 mg, Topamax 50 mg and Gabapentin 800 TID. Pt reports that she is expecting medication delivery today. CM informed pt that PA was completed for Ajit yesterday waiting for approval/denial. Pt reports that she received the flu shot this season and hasn't really gotten sick or had any asthma flare up. Pt reports that she was ordered fasting labs which she will complete tomorrow. Pt reports that her BP has been good, takes her BP medication daily, and denied any symptoms. Pt reports that she doesn't really monitor her BP unless symptomatic. Pt reports that she has already trained the portable bedside commode. Pt reports that she is able to schedule transportation to her appointments. Pt was reminded of her upcoming dental and PCP appointment. In regard to her depression and anxiety it continues the same. No further questions or concerns. CM reinforced direct contact information for any additional questions or concerns. Education provided on [facility] located in [facility]. Patient provided with after-hours line for [facility], , which offer night time triage service and option to transfer to casino floor person provider if needed. Patient verbalizes understanding, and able to r epeat back to press writer. A follow up call will be placed within 10 days, patient agrees with plan. documented in this encounter Plan of Treatment Upcoming Encounters Date Type Department Care Team (Late st Contact Info) Description 12/07/2024 9:45 AM EDT Office Visit [facility] MEDICINE [address] [place] [address] Cheryl Fitzpatrick MD [address] [place] [address] 12/21/2024 10:00 AM EDT Office Visit [facility] ADULT DENTAL [address] [place] [address] Hema Hill DDS [address] [place] [address] 01/17/2025 1:00 PM EDT Office Visit [facility] OPTOMETRY [address] [place] [address] Salena Garcia, OD [address] [place] [address] documented as of this encounter Goals Goal [...] documented as of this encounter Care Teams Environmental Field Professional Relationship Specialty Start Date End Date Cheryl Fitzpatrick MD [address] [place] [address] PCP - General Internal Medicine 09/10/22 Nick Castellanos FNP [address] [place] [address] Nurse Practitioner Family Medicine 07/04/23 Apolonia Mars director of primary care Land ClearerInterlocker Maintainer 11/16/23 documented as of this encounter
--- OUTSIDE RECORDS SUMMARY | 2024-11-29 08:24 | XMS_ITS | Encounter Summary ---
Author Organization [employer] Address 75 [facility] 7t [place] [address] Care Team Providers Care Ultrasonic Hand Solderer Name Role Phone Cheryl Fitzpatrick MD Primary Care Provider + Nick Castellanos Unavailable Unavailable Reason for Visit * Reason Onset Date Comments PT-1 10/22/2024 Encounter Details Date Type Department Care Team (Late st Contact Info) Description 10/22/2024 Telephone [facility] MEDICINE 230 [place], [place] [phone] Cheryl Fitzpatrick MD [address] [place], [place] [phone] PT-1 (/) Social History Tobacco Use Types Packs/Day Years [...] encounter Miscellaneous Notes * Telephone Encounter - Nikhil Lutznandez - 10/22/2024 1:41 PM EST Patient calling requesting PT1 Home Address verified: Y/N: Yes Provider name or facility name: [facility] Escort needed: Do you have a wheelchair: Y/N: No If yes- Manual or electric: Visits: (5 x Mothly) Patient calling requesting PT1 Home Address verified: Y/N: Yes Provider name or facility name: [facility], [address] [place] [address] Escort needed: Y/N: No Do you have a wheelchair: Y/N: No If yes- Manual or electric: Visits: (5 x Monthly) Patient calling requesting PT1 Home Address verified: Yes Provider name or facility name: [employer] [facility], [facility], [place] [address] Escort needed: Y/N: No Do you have a wheelchair: Y/N: No If yes- Manual or electric: Visits: (2 x Monthly) documented in this encounter Plan of Treatment Upcoming Encounters Date Type Department Care Team (Late st Contact Info) Description 12/07/2024 9:45 AM EDT Office Visit [facility] MEDICINE [address] [place] [address] Cheryl Fitzpatrick MD [address] [place] [address] 12/21/2024 10:00 AM EDT Office Visit [facility] ADULT DENTAL [address] [place] [address] Hema Hill DDS [address] [place] [address] 01/17/2025 1:00 PM EDT Office Visit [facility] OPTOMETRY [address] [place] [address] Salena Garcia OD [address] [place] [address] documented as of this encounter Goals Goal Patient Goal Type Associated Problems Recent Progress Patient-Stated? Author Blood Pressure < 140/90 Blood Pressure 126/74(2024 1:24 PM EDT) No Rip-Kenzie Malik, PharmD Hemoglobin A1c < 7 Result Component 8.3( 1:13 PM EST) No Kenzie rTan, PharmD documented as of this encounter Visit Diagnoses Not on filedocumented in this encounter Additional Health Concerns Assessment Noted Time PHQ-9 Depression Total Score: 10 06/2 024 10:01 AM EDT documented as of this encounter Care Teams Ultrasonic Hand Solderer Relationship Specialty Start Date End Date Cheryl Fitzpatrick MD [address] [place] [address] PCP - General Internal Medicine 09/10/22 Nick Castellanos FNP [address] [place] [address] Nurse Practitioner Family Medicine 07/04/23 Apolonia Mars child care center administrator Digital Computer Systems AnalystNutrition Helper 11/16/23 documented as of this encounter
--- OUTSIDE RECORDS SUMMARY | 2024-11-29 08:24 | XMS_ITS | Encounter Summary ---
Author Organization [employer] Address 75 [facility] 7t [place] [address] Care Team Providers Care Ceramic Saw Tender Name Role Phone Cheryl Fitzpatrick MD Primary Care Provider + Nick Castellanos Unavailable Unavailable Reason for Visit * Reason Onset Date Comments PT1 10/27/2023 Encounter Details Date Type Department Care Team (Late st Contact Info) Description 10/27/2023 Telephone [facility] MEDICINE [address] [place], [place] [phone] Cheryl Fitzpatrick MD [address] [place], [place] [phone] PT1 Social History Tobacco Use Types Packs/Day [...] - 11/09/2023 1:24 PM EDT PT-1 Request [id number] Pending for [address] [facility] * Telephone Encounter - Maria De Jesus Epstein - 11/09/2023 1:20 PM EDT PT-1 Request [id number] Pending for [facility] * Telephone Encounter - Maria De Jesus Epstein - 11/09/2023 1:17 PM EDT PT-1 Request [id number] Pending For [facility] * Telephone Encounter - Shireen Johns - 10/27/2023 9:28 AM EST PT1 renewals Date: 11/09/2023 Time: 1:30 Visits: n/a Address: [address] [place] [address] Facility: [facility] Wheel Chair: No Addictions Counselor Needed: No Date: n/a Time: n/a Visits: n/a Address: [address] [address] Facility: [facility] Multiple Specialties Wheel Chair: no Addictions Counselor Needed: no Date: n/a Time: n/a Visits: n/a Address: [address] [facility] Facility: [facility] Roll [facility] Wheel Chair: no Addictions Counselor Needed: no documented in this encounter Plan of Treatment Upcoming Encounters Date Type Department Care Team (Late st Contact Info) Description 12/07/2024 9:45 AM EDT Office Visit [facility] MEDICINE [address] [place] [address] Cheryl Fitzpatrick MD [address] [place] [address] 12/21/2024 10:00 AM EDT Office Visit [facility] ADULT DENTAL [address] [place] [address] Hema Hill DDS [address] [place] [address] 01/17/2025 1:00 PM EDT Office Visit [facility] OPTOMETRY [address] [place] [address] Salena Garcia OD [address] [place] [address] documented as of this encounter Goals Goal Patient Goal Type Associated Problems Recent Progress Patient-Stated? Author Blood Pressure < 140/90 Blood Pressure 126/74(2024 1:24 PM EDT) No YongsKenzie Pineda, PharmD Hemoglobin A1c < 7 Result Component 8.3( 1:13 PM EST) No YongsKenzie Pineda, PharmD documented as of this encounter Visit Diagnoses Not on filedocumented in this encounter Additional Health Concerns Assessment Noted Time PHQ-9 Depression Total Score: 11 024 9:34 AM EST documented as of this encounter Care Teams Ceramic Saw Tender Relationship Specialty Start Date End Date Cheryl Fitzpatrick MD [address] [place] [address] PCP - General Internal Medicine 09/10/22 Nick Castellanos FNP [address] [place] [address] Nurse Practitioner Family Medicine 07/04/23 Court Shay Production Estimator 11/11/23 02/10/24 Apolonia Mars career developer Production EstimatorHuman Resources Professional 11/16/23 documented as of this encounter
--- OUTSIDE RECORDS SUMMARY | 2024-11-29 08:24 | XMS_ITS | Encounter Summary ---
Author Organization [employer] Address 75 [facility] 7t [place] [address] Care Team Providers Care Peanut Roaster Name Role Phone Cheryl Fitzpatrick MD Primary Care Provider + Nick Castellanos Unavailable Unavailable Reason for Visit * Reason Comments Med Refill Encounter Details Date Type Department Care Team (Late st Contact Info) Description 11/10/2023 Refill [facility] MEDICINE [address] [place] [address] Nick Castellanos FNP Type 2 diabetes mellitus with hyperglycemia, with long-term current use of insulin ([facility]) Social History Tobacco Use Types [...] with others, in a hotel, in a custodial, living outside on the street, on a [...] Description 12/07/2024 9:45 AM EDT Office Visit [facility] MEDICINE [address] [place] [address] Cheryl Fitzpatrick MD [address] [place] [address] 12/21/2024 10:00 AM EDT Office Visit [facility] ADULT DENTAL [address] [place] [address] Hema Hill DDS [address] [place] [address] 01/17/2025 1:00 PM EDT Office Visit [facility] OPTOMETRY [address] [place] [address] Salena Garcia, OD [address] [place] [address] documented as of this encounter Goals Goal Patient Goal Type Associated Problems Recent Progress Patient-Stated? Author Blood Pressure < 140/90 Blood Pressure 126/74(2024 1:24 PM EDT) No Yongs-Michaell Kenzie diaz, PharmD Hemoglobin A1c < 7 Result Component 8.3( 1:13 PM EST) No Yongs-Kenzie Malik, PharmD documented as of this encounter Visit Diagnoses Diagnosis Type 2 diabetes mellitus with hyperglycemia, with long-term current use of insulin ([facility]) documented in this encounter Additional Health Concerns Assessment Noted Time PHQ-9 Depression Total Score: 11 024 9:34 AM EST documented as of this encounter Care Teams Peanut Roaster Relationship Specialty Start Date End Date Cheryl Fitzpatrick MD [address] [place] [address] PCP - General Internal Medicine 09/10/22 Nick Castellanos FNP [address] [place] [address] Nurse Practitioner Family Medicine 07/04/23 [address] Sh[address] Pluck Trimmer 11/11/23 02/10/24 Apolonia Mars child care cook Pluck TrimmerCentral Services Tech 11/16/23 documented as of this encounter
--- OUTSIDE RECORDS SUMMARY | 2024-11-29 08:25 | XMS_ITS | Encounter Summary ---
Author Organization [employer] Address 75 [facility] 7t [place] [address] Care Team Providers Care Home Visits Nurse Name Role Phone Cheryl Fitzpatrick MD Primary Care Provider + Edu Leung PharmD Unavailable Nick Castellanos FASHION MARKETER Unavailable Unavailable Reason for Visit * Reason Onset Date Comments call back 10/05/2022 Encounter Details Date Type Department Care Team (Late st Contact Info) Description 10/05/2022 Telephone [facility] MEDICINE [address] [place], [place] [phone] Cheryl Fitzpatrick MD [address] [place], [place] [phone] call back Social History Tobacco Use Types [...] Description 12/07/2024 9:45 AM EDT Office Visit [facility] MEDICINE [address] [place] [address] Cheryl Fitzpatrick MD [address] [place] [address] 12/21/2024 10:00 AM EDT Office Visit [facility] ADULT DENTAL [address] [place] [address] Hema Hill DDS [address] [place] [address] 01/17/2025 1:00 PM EDT Office Visit [facility] OPTOMETRY [address] [place] [address] Salena Garcia OD [address] [place] [address] documented as of this encounter Visit Diagnoses Not on filedocumented in this encounter Additional Health Concerns Assessment Noted Time PHQ-9 Depression Total Score: 19 023 9:39 AM EST documented as of this encounter Care Teams Home Visits Nurse Relationship Specialty Start Date End Date Cherly Fitzpatrick MD [address] [place] [address] PCP - General Internal Medicine 09/10/22 Edu Leung, Merari [address] [place] [address] Pharmacist Internal Medicine 06/14/23 06/28/23 Nick Castellanos FNP [address] [place] [address] Nurse Practitioner Family Medicine 07/04/23 Court Sh[address] Commercial Teller 11/11/23 02/10/24 Apolonia Mars primary care nurse practitioner Commercial TellerDirector Community Health Nursing 11/16/23 documented as of this encounter
--- OUTSIDE RECORDS SUMMARY | 2024-11-29 08:25 | XMS_ITS | Encounter Summary ---
Author Organization [employer] Address 75 [facility] 7t [place] [address] Care Team Providers Care Professor Of Environmental Engineering Name Role Phone Cheryl Fitzpatrick MD Primary Care Provider + Edu Leung PharmD Unavailable +[phone] Nick Castellanos ADVISORY INTERNSHIP Unavailable Unavailable Reason for Visit * Reason Onset Date Comments cancelling appt with OS 04/19/2023 Encounter Details Date Type Department Care Team (Late st Contact Info) Description 04/19/2023 Telephone [facility] ADULT DENTAL [address] [place], [place] [phone] Hema Hill DDS [address] [place], [place] [phone] cancelling appt with OS Social History Tobacco [...] to be cancelled. Reached out to oral surgical scheduler but could not reach her DR documented in this encounter Plan of Treatment Upcoming Encounters Date Type Department Care Team (Late st Contact Info) Description 12/07/2024 9:45 AM EDT Office Visit [facility] MEDICINE [address] [place] [address] Cheryl Fitzpatrick MD [address] [place] [address] 12/21/2024 10:00 AM EDT Office Visit [facility] ADULT DENTAL [address] [place] [address] Hema Hill DDS [address] [place] [address] 01/17/2025 1:00 PM EDT Office Visit [facility] OPTOMETRY [address] [place] [address] Salena Garcia OD [address] [place] [address] documented as of this encounter Goals Goal Patient Goal Type Associated Problems Recent Progress Patient-Stated? Author Blood Pressure < 140/90 Blood Pressure 126/74(2024 1:24 PM EDT) No Kenzie Tran PharmMiguel Hemoglobin A1c < 7 Result Component 8.3( 1:13 PM EST) No Kenzie Tran PharmD documented as of this encounter Visit Diagnoses Not on filedocumented in this encounter Additional Health Concerns Assessment Noted Time PHQ-9 Depression Total Score: 12 023 10:04 AM EDT documented as of this encounter Care Teams Professor Of Environmental Engineering Relationship Specialty Start Date End Date Cheryl Fitzpatrick MD [address] [place] [address] PCP - General Internal Medicine 09/10/22 Edu Leung PharmD [address] [place] [address] Pharmacist Internal Medicine 06/14/23 06/28/23 Nick Castellanos FNP [address] [place] [address] Nurse Practitioner Family Medicine 07/04/[address] h[address] Automatic Fabric Cutter 11/11/23 02/10/24 Apolonia Mars student career development specialist Automatic Fabric CutterLocal Company Intermodal Truck Driver 11/16/23 documented as of this encounter
--- OUTSIDE RECORDS SUMMARY | 2024-11-29 08:25 | XMS_ITS | Encounter Summary ---
Author Organization [employer] Address [address] [facility] 7t [place] [address] Care Team Providers Care Netsuite Consultant Name Role Phone Cheryl Fitzpatrick MD Primary Care Provider + Nick Castellanos Unavailable Unavailable Reason for Visit * Reason Onset Date Comments PT-1 04/16/2024 Encounter Details Date Type Department Care Team (Late st Contact Info) Description 04/16/2024 Telephone [facility] MEDICINE 230 [place], [place] [phone] Cheryl Fitzpatrick MD 230 [place], [place] [phone] PT-1 Social History Tobacco Use Types Packs/Day [...] name: [facility] - SHE[place]AR Mathews [address] Facility Address: [address] [place] [address] [facility]: Y/N: No Do you have a wheelchair: Y/N: No If yes- Manual or electric: no Visits 6 documented in this encounter Plan of Treatment Upcoming Encounters Date Type Department Care Team (Late st Contact Info) Description 12/07/2024 9:45 AM EDT Office Visit [facility] MEDICINE [address] [place] [address] Cheryl Fitzpatrick MD 230 [place] [address] 12/21/2024 10:00 AM EDT Office Visit [facility] ADULT DENTAL [address] [place] [address] Hema Hill DDS 230 [place] [address] 01/17/2025 1:00 PM EDT Office Visit [facility] OPTOMETRY [address] [place] [address] Salena Garcia OD [address] [place] [address] documented as of this encounter Goals Goal Patient Goal Type Associated Problems Recent Progress Patient-Stated? Author Blood Pressure < 140/90 Blood Pressure 126/74(2024 1:24 PM EDT) No Yongs-Kenzie Malik, PharmD Hemoglobin A1c < 7 Result Component 8.3( 1:13 PM EST) No Kenzie Tran, PharmD documented as of this encounter Visit Diagnoses Not on filedocumented in this encounter Additional Health Concerns Assessment Noted Time PHQ-9 Depression Total Score: 10 024 10:01 AM EDT documented as of this encounter Care Teams Netsuite Consultant Relationship Specialty Start Date End Date Cheryl Fitzpatrick MD [address] [place] [address] PCP - General Internal Medicine 09/10/22 Nick Castellanos FNP [address] [place] [address] Nurse Practitioner Family Medicine 07/04/23 Apolonia Mars account executive healthcare Computer Aided Design TechnicianResearch Greenhouse Supervisor 11/16/23 documented as of this encounter
--- OUTSIDE RECORDS SUMMARY | 2024-11-29 08:25 | XMS_ITS | Encounter Summary ---
Author Organization [employer] Address [address] [facility] [address] 7t [place] [address] Care Team Providers Care Property And Casualty Insurance Agent Name Role Phone Cheryl Fitzpatrick MD Primary Care Provider + Nick Castellanos Unavailable Unavailable Reason for Visit * Reason Comments Med Refill Encounter Details Date Type Department Care Team (Late st Contact Info) Description 09/29/2023 Refill [facility] MEDICINE 230 [place], [place] [phone] Cheryl Fitzpatrick MD 230 [place], [place] [phone] Anxiety; Migraine with aura and without status [...] Description 12/07/2024 9:45 AM EDT Office Visit [facility] MEDICINE [address] [place] [address] Cheryl Fitzpatrick MD [address] [place] [address] 12/21/2024 10:00 AM EDT Office Visit [facility] ADULT DENTAL [address] [place] [address] Hema Hill DDS [address] [place] [address] 01/17/2025 1:00 PM EDT Office Visit [facility] OPTOMETRY [address] [place] [address] Salena Garcia, OD [address] [place] [address] documented as of this encounter Goals Goal [...] documented as of this encounter Care Teams Property And Casualty Insurance Agent Relationship Specialty Start Date End Date Cheryl Fitzpatrick MD [address] [place] [address] PCP - General Internal Medicine 09/10/22 Nick Castellanos FNP [address] [place] [address] Nurse Practitioner Family Medicine 07/04/23 Court Shay Die Maker Bench Stamping 11/11/23 02/10/24 Apolonia Mars primary care provider Die Maker Bench StampingKnitted Garment Finisher 11/16/23 documented as of this encounter
--- OUTSIDE RECORDS SUMMARY | 2024-11-29 08:25 | XMS_ITS | Encounter Summary ---
Author Organization [employer] Address [address] [facility] 7t [place] [address] Care Team Providers Care Environmental Department Manager Name Role Phone Cheryl Fitzpatrick MD Primary Care Provider + Nick Castellanos Unavailable Unavailable Reason for Visit * Reason Onset Date Comments PT1 03/15/2024 Encounter Details Date Type Department Care Team ([facility] st Contact Info) Description 03/15/2024 Telephone [facility] MEDICINE 230 [place], [place] [phone] Cheryl Fitzpatrick MD 230 [place], [place] [phone] PT1 Social History Tobacco Use Types Packs/Day [...] states is homeless and is currently at [address] [place] [address] Provider name or facility name: [facility] Facility Address: [address] [place] [address] Escort needed: Y/N: No Do you have a wheelchair: Y/N: No If yes- Manual or electric: no Visits: 5-6 visit a month documented in this encounter Plan of Treatment Upcoming Encounters Date Type Department Care Team (Late st Contact Info) Description 12/07/2024 9:45 AM EDT Office Visit [facility] MEDICINE [address] [place] [address] Cheryl Fitzpatrick MD [address] [place] [address] 12/21/2024 10:00 AM EDT Office Visit [facility] ADULT DENTAL [address] [place] [address] Hema Hill DDS [address] [place] [address] 01/17/2025 1:00 PM EDT Office Visit [facility] OPTOMETRY [address] [place] [address] Salena Garcia OD [address] [place] [address] documented as of this encounter Goals Goal [...] as of this encounter Care Teams Environmental Department Manager Relationship Specialty Start Date End Date Cheryl Fitzpatrick MD 230 [place] [address] PCP - General Internal Medicine 09/10/22 Nick Castellanos FNP [address] [place] [address] Nurse Practitioner Family Medicine 07/04/23 Apolonia Mars residential care facility manager Concrete Vault MakerShrimp Peeling Machine Tender 11/16/23 documented as of this encounter
--- OUTSIDE RECORDS SUMMARY | 2024-11-29 08:25 | XMS_ITS | Encounter Summary ---
Author Organization [employer] Address [address] [facility] 7t [place] [address] Care Team Providers Care International Sales Manager Name Role Phone Cherly Fitzpatrick MD Primary Care Provider + Edu Leung PharmD Unavailable Nick Castellanos WOOD PATTERN MAKER Unavailable Unavailable Encounter Details Date Type Department Care Team (Late st Contact Info) Description 11/12/2022 Abstract [facility] MEDICINE 230 [place], [place] [phone] Cheryl Fitzpatrick MD 230 [place], [place] [phone] Social History Tobacco Use Types Packs/Day Years [...] Description 12/07/2024 9:45 AM EDT Office Visit [facility] MEDICINE [address] [place] [address] Cheryl Fitzpatrick MD [address] [place] [address] 12/21/2024 10:00 AM EDT Office Visit [facility] ADULT DENTAL [address] [place] [address] Hema Hill DDS [address] [place] [address] 01/17/2025 1:00 PM EDT Office Visit [facility] OPTOMETRY [address] [place] [address] Salena Garcia OD [address] [place] [address] documented as of this encounter Visit Diagnoses Not on filedocumented in this encounter Additional Health Concerns Assessment Noted Time PHQ-9 Depression Total Score: 19 023 9:39 AM EST documented as of this encounter Care Teams International Sales Manager Relationship Specialty Start Date End Date Cheryl Fitzpatrick MD [address] [place] [address] PCP - General Internal Medicine 09/10/22 Edu Leung, HudsonD [address] [place] [address] Pharmacist Internal Medicine 06/14/23 06/28/23 Nick Castellanos FNP 230 [place] [address] Nurse Practitioner Family Medicine 07/04/23 [address] Welder And Fitter 11/11/23 02/10/24 Apolonia Mars home care attendant Welder And FitterCrusher Dry Ground Mica 11/16/23 documented as of this encounter
--- OUTSIDE RECORDS SUMMARY | 2024-11-29 08:25 | XMS_ITS | Encounter Summary ---
Author Organization [employer] Address [address] [facility] 7t [place] [address] Care Team Providers Care Solar Sales Ambassador Name Role Phone Cheryl Fitzpatrick MD Primary Care Provider + Nick Castellanos Unavailable Unavailable Reason for Visit * Reason Comments Med Refill Encounter Details Date Type Department Care Team (Late st Contact Info) Description 09/29/2023 Refill [facility] [address] [place] [address] Nick Castellanos FNP Type 2 diabetes mellitus with hyperglycemia, with long-term current use of insulin ([facility]) Social History Tobacco Use Types [...] Description 12/07/2024 9:45 AM EDT Office Visit [facility] MEDICINE [address] [place] [address] Cheryl Fitzpatrick MD [address] [place] [address] 12/21/2024 10:00 AM EDT Office Visit [facility] ADULT DENTAL [address] [place] [address] Hema Hill DDS [address] [place] [address] 01/17/2025 1:00 PM EDT Office Visit [facility] OPTOMETRY [address] [place] [address] Lennyyo Salena, OD [address] [place] [address] documented as of this encounter Goals Goal [...] hyperglycemia, with long-term current use of insulin ([facility]) documented in this encounter Additional Health Concerns Assessment Noted Time PHQ-9 Depression Total Score: 8 08/23/19 24 11:27 AM EST documented as of this encounter Care Teams Solar Sales Ambassador Relationship Specialty Start Date End Date Cheryl Fitzpatrick MD [address] [place] [address] PCP - General Internal Medicine 09/10/22 Nick Castellanos FNP [address] [place] [address] Nurse Practitioner Family Medicine 07/04/23 [address] Blocker And Polisher Gold Wheel 11/11/23 02/10/24 Apolonia Mars customer care coordinator Blocker And Polisher Gold WheelBuilding Construction Contractor 11/16/23 documented as of this encounter
--- OUTSIDE RECORDS SUMMARY | 2024-11-29 08:25 | XMS_ITS | Encounter Summary ---
Author Organization [employer] Address [address] [facility] 7t [place] [address] Care Team Providers Care Marble Machine Operator Name Role Phone Cheryl Fitzpatrick MD Primary Care Provider + Edu Leung PharmD Unavailable [phone] Nick Castellanos CERTIFIED PROSTHETIST VICE PRESIDENT Unavailable Unavailable Encounter Details Date Type Department Care Team (Late st Contact Info) Description 05/18/2023 Abstract [facility] ADULT DENTAL 230 [place], [place] [phone] Hema Hill DDS [address] [place], [place] [phone] Social History Tobacco Use Types Packs/Day Years [...] Description 12/07/2024 9:45 AM EDT Office Visit [facility] MEDICINE [address] [place] [address] Cheryl Fitzpatrick MD [address] [place] [address] 12/21/2024 10:00 AM EDT Office Visit [facility] ADULT DENTAL [address] [place] [address] Hema Hill DDS [address] [place] [address] 01/17/2025 1:00 PM EDT Office Visit [facility] OPTOMETRY [address] [place] [address] Salena Garcia OD [address] [place] [address] documented as of this encounter Goals Goal Patient Goal Type Associated Problems Recent Progress Patient-Stated? Author Blood Pressure < 140/90 Blood Pressure 126/74(2024 1:24 PM EDT) No Piers-Gambl e, Kenzie, PharmD Hemoglobin A1c < 7 Result Component 8.3( 1:13 PM EST) No Piers-Gambl eKenzie, PharmD documented as of this encounter Visit Diagnoses Not on filedocumented in this encounter Additional Health Concerns Assessment Noted Time PHQ-9 Depression Total Score: 7 05/09/20 23 1:43 PM EDT documented as of this encounter Care Teams Marble Machine Operator Relationship Specialty Start Date End Date Cheryl Fitzpatrick MD [address] [place] [address] PCP - General Internal Medicine 09/10/22 Edu Leung, HudsonD [address] [place] [address] Pharmacist Internal Medicine 06/14/23 06/28/23 Nick Castellanos FNP [address] [place] [address] Nurse Practitioner Family Medicine 07/04/23 [address] Bottle Line Worker 11/11/23 02/10/24 Apolonia Mars special needs child caregiver Bottle Line WorkerProcess Operator 11/16/23 documented as of this encounter
--- OUTSIDE RECORDS SUMMARY | 2024-11-29 08:25 | XMS_ITS | Encounter Summary ---
Author Organization [employer] Address [address] [facility] 7t [place] [address] Care Team Providers Care Flame Hardener Name Role Phone Cheryl Fitzpatrick MD Primary Care Provider + Edu Leung PharmD Unavailable [phone] Nick Castellanos FACILITIES PAINTER Unavailable Unavailable Reason for Visit * Reason Comments Med Refill Encounter Details Date Type Department Care Team (Late st Contact Info) Description 12/18/2022 Refill [facility] WALK-IN [facility]AC[facility] [address] [place] [address] Marybel Webster MD [address] [place], [place] [phone] Social History Tobacco Use Types Packs/Day Years [...] 12/07/2024 9:45 AM EDT Office Visit [facility] MEDICINE [address] [place] [address] Cheryl Fitzpatrick MD 230 [place] [address] 12/21/2024 10:00 AM EDT Office Visit [facility] ADULT DENTAL [address] [place] [address] Hema Hill DDS [address] [place] [address] 01/17/2025 1:00 PM EDT Office Visit [facility] OPTOMETRY [address] [place] [address] Salena Garcia OD [address] [place] [address] documented as of this encounter Visit Diagnoses Not on filedocumented in this encounter Additional Health Concerns Assessment Noted Time PHQ-9 Depression Total Score: 9 11/16/19 10:11 AM EDT documented as of this encounter Care Teams Flame Hardener Relationship Specialty Start Date End Date Cheryl Fitzpatrick MD [address] [place] [address] PCP - General Internal Medicine 09/10/22 Edu Leung, Merari [address] [place] [address] Pharmacist Internal Medicine 06/14/23 06/28/23 Nick Castellanos FNP 230 [facility] [place] [id number] Nurse Practitioner Family Medicine 07/04/23 [address] Carpentry Supervisor 11/11/23 02/10/24 Apolonia Mars rn acute care Carpentry SupervisorFeed In Worker 11/16/23 documented as of this encounter
--- OUTSIDE RECORDS SUMMARY | 2024-11-29 08:25 | XMS_ITS | Encounter Summary ---
Author Organization [employer] Address [address] [facility] 7t [place] [address] Care Team Providers Care Jacquard Card Cutter Name Role Phone Cheryl Fitzpatrick MD Primary Care Provider + Edu Leung PharmD Unavailable Nick Castellanos DRYWALL CONTRACTOR Unavailable Unavailable Encounter Details Date Type Department Care Team (Late st Contact Info) Description 10/05/2022 Orders Only [facility] MEDICINE 230 [place], [place] [phone] Cheryl Fitzpatrick MD 230 [place], [place] [phone] Fibromyalgia (Primary Dx); Migraine with aura and [...] Description 12/07/2024 9:45 AM EDT Office Visit [facility] MEDICINE [address] [place] [address] Cheryl Fitzpatrick MD [address] [place] [address] 12/21/2024 10:00 AM EDT Office Visit [facility] ADULT DENTAL [address] [place] [address] Hema Hill DDS [address] [place] [address] 01/17/2025 1:00 PM EDT Office Visit [facility] OPTOMETRY [address] [place] [address] Salena Garcia, ELLIS [address] [place] [address] documented as of this encounter Visit Diagnoses Diagnosis Fibromyalgia- Primary Unspecified myalgia and myositis Migraine with aura and without status migrainosus, not intractable documented in this encounter Additional Health Concerns Assessment Noted Time PHQ-9 Depression Total Score: 19 023 9:39 AM EST documented as of this encounter Care Teams Jacquard Card Cutter Relationship Specialty Start Date End Date Cheryl Fitzpatrick MD [address] [place] [address] PCP - General Internal Medicine 09/10/22 Edu Leung, HudsonD [address] [place] [address] Pharmacist Internal Medicine 06/14/23 06/28/23 Nick Castellanos FNP 230 [place] [address] Nurse Practitioner Family Medicine 07/04/23 Court Shay Manager Strategic Partnerships 11/11/23 02/10/24 Apolonia Mars healthcare receptionist Manager Strategic PartnershipsBusiness Process Lead 11/16/23 documented as of this encounter
--- OUTSIDE RECORDS SUMMARY | 2024-11-29 08:25 | XMS_ITS | Clinical Summary ---
Author Organization [employer] Address [address] [facility] [address] [place] [address] Care Team Providers Care County Director Name Role Phone Cheryl Fitzpatrick MD Primary Care Provider + Nick Castellanos GAS INSPECTOR Unavailable Unavailable Allergies Active Allergy Reactions Criticality Noted Date Comments Sulfa Antibiotics Unknown 09/17/2022 Sulfadiazine 09/10/2022 Dulaglutide Diarrhea Medium 01/06/2023 Medications * This document contains information received from the source organization and may not represent a complete record from that organization. Blood Glucose Monitoring Suppl (FreeStyle Lite) deviceIndicatio ns:Type 2 diabetes mellitus with hyperglycemia, with long-term current use of insulin ([facility]),Anxie ty Test daily before all meals/snacks and [...] EVERY MORNING 023 Active Continuous Blood Gluc Binder Caser (FreeStyle Gagandeep 2 Freeborn) deviceIndicatio ns:Type 2 diabetes mellitus with hyperglycemia, with long-term current use of insulin ([facility]) Use to test blood sugar as directed. 1 each 023 Active lidocaine-prilo eloy (Emla) 2.5-2.5 % cream Apply topically every 12 (twelve) hours if needed for mild pain. 30 g 023 Active Clotrimazole Anti-Fungal 1 % creamIndication s:Candidal vaginitis APPLY TO THE AFFECTED AREA(S) TOPICALLY TWICE DAILY 45 g 2 023 Active glucose blood (FreeStyle Precision Britton Test) test stripIndication s:Type 2 diabetes mellitus with hyperglycemia, with long-term current use of insulin ([facility]) USE DIRECTED TO TEST BLOOD SUGAR NEEDED FOR HYPOGLYCEMIA 50 strip 5 024 Active buPROPion XL (Wellbutrin XL) 300 MG 24 hr tabletIndicatio ns:Type 2 diabetes mellitus with hyperglycemia, with long-term current use of insulin ([facility]),Anxie ty Take 1 tablet (300 mg) by mouth in the morning. Do not crush, chew, or split. 90 tablet 3 024 Active clonazePAM (KlonoPIN) 2 MG tabletIndicatio ns:Type 2 diabetes mellitus with hyperglycemia, with long-term current use of insulin ([facility]) Take 1 tablet (2 mg) by mouth every 8 (eight) hours. 84 tablet 5 024 Active QUEtiapine (SEROquel) 300 MG tabletIndicatio ns:Type 2 diabetes mellitus with hyperglycemia, with long-term current use of insulin ([facility]) Take 0.5 tablets (150 mg) by mouth in the morning AND 2 tablets (600 mg) at bedtime. 225 tablet 3 Active traZODone (Desyrel) 100 MG tabletIndicatio ns:Type 2 diabetes mellitus with hyperglycemia, with long-term current use of insulin ([facility]),Anxie ty TAKE 2 TABLET BY MOUTH QHS 180 tablet 3 Active acetaminophen (Tylenol) 500 MG tablet Take 1 tablet (500 mg) by mouth every 6 (six) hours if needed for mild pain for up to 20 doses. 20 tablet Active ibuprofen 600 MG tablet Take 1 tablet (600 mg) by mouth every 6 (six) hours if needed for mild pain for up to 20 doses. 20 tablet Active senna-docusate sodium (Senokot-S) 8.6-50 MG tablet Take 1 tablet by mouth if needed each day for constipation. 90 tablet 2024 Active insulin degludec (Tresiba FlexTouch) 100 UNIT/ML injectionIndica tions:Type 2 diabetes mellitus with hyperglycemia, with long-term current use of insulin ([facility]) INJECT 72 UNITS SUBCUTANEOUSLY EVERY EVENING 30 mL Active insulin lispro (HumaLOG) 100 UNIT/ML injectionIndica tions:Type 2 diabetes mellitus with hyperglycemia, with long-term current use of insulin ([facility]),Redd ty INJECT 10 UNITS SUBCUTANEOUSLY BEFORE MEALS 15 mL Active TRUEplus Lancets 33G miscIndications :Type 2 diabetes mellitus with hyperglycemia, with long-term current use of insulin ([facility]),Abrile ty TEST BLOOD SUGAR BEFORE MEALS AND SNACKS AND BEFORE BEDTIME 100 each Active Pentips Generic Pen Ventress 32G X 4 MM miscIndications :Type 2 diabetes mellitus with hyperglycemia, with long-term current use of insulin ([facility]),Anxie ty USE FOUR TIMES DAILY 100 each Active topiramate 50 MG tabletIndicatio ns:Migraine with aura and without status migrainosus, not intractable TAKE 1 TABLET BY MOUTH AT BEDTIME 90 tablet Active gabapentin (Neurontin) 800 MG tabletIndicatio ns:Anxiety,Migr milana with aura and without status migrainosus, not intractable TAKE 1 TABLET BY MOUTH THREE TIMES DAILY IN THE MORNING, AT NOON, AND AT BEDTIME 90 tablet 5 025 Active rosuvastatin (Crestor) 20 MG tablet Take 1 tablet (20 mg) by mouth at bedtime. 90 tablet 3 025 2025 Active Tirzepatide (Mounjaro) 2.5 MG/0.5ML solution auto-injector Inject 2.5 mg under the skin 1 (one) time per week. 2 mL 11 025 Active Continuous Glucose Sensor (FreeStyle Gagandeep 2 Sensor) miscIndications :Type 2 diabetes mellitus with hyperglycemia, with long-term current use of insulin ([facility]) USE TO TEST BLOOD SUGAR FOUR TIMES DAILY, CHANGE EVERY 14 DAYS 2 each 5 025 Active Asmanex HFA 200 MCG/ACT aerosolIndicati ons:Mild intermittent asthma with exacerbation INHALE 2 PUFFS BY MOUTH TWICE DAILY IN THE MORNING AND AT BEDTIME. RINSE MOUTH AFTER USING. DO NOT SWALLOW 13 g 3 025 Active Jardiance 25 MGIndications:T ype 2 diabetes mellitus with hyperglycemia, with long-term current use of insulin ([facility]) TAKE 1 TABLET BY MOUTH EVERY MORNING 30 tablet 3 025 Active losartan-hydroC HLOROthiazide (Hyzaar) 50-12.5 MG tabletIndicatio ns:Primary hypertension TAKE 1 TABLET BY MOUTH EVERY MORNING 90 tablet 1 025 Active losartan-hydroC HLOROthiazide (Hyzaar) 50-12.5 MG tabletIndicatio ns:Primary hypertension TAKE 1 TABLET BY MOUTH EVERY MORNING 90 tablet 1 024 2024 Discontinued Jardiance 25 MGIndications:T ype 2 diabetes mellitus with hyperglycemia, with long-term current use of insulin ([facility]) TAKE 1 TABLET BY MOUTH EVERY MORNING 90 tablet 1 024 2024 Discontinued Active Problems Problem Noted Date Diagnosed Date Elevated liver enzymes 09/04/2024 Mixed hyperlipidemia 09/04/2024 Assessment & Plan (10/09/2024 4:07 PM EST): TG are improved but not at goal yet, continues with hypercholesterolemia. Start Crestor 20 mg and follow LFTs/lipids in 3 months. Discussed with pt importance of control of DM. Complete edentulism 07/27/2024 Encounter for preventive health [...] life style modifications, diet and referral to manipulative therapy specialist. Recommended to decrease soda and sugary [...] asthma with exacerbation 01/05 Assessment & Plan (10/09/2024 3:51 PM EST): Seems to be controlled. Encouraged to use Asmanex daily and Albuterol prn only. Agreed to Influenza immunization, declined Covid immunization. Assessment & Plan (01/06/2024 12:55 PM EDT): [...] (10/21/2023 11:33 AM EST): Seen recently by conveyor technician, fu every 6 m A1c is improving but not at goal, FU with medical insurance collector (I gave pt phone number to schedule appointment, I will refer to case management social worker to support her to keep her appointment) No change in medication and fu with medical insurance collector Hypertension 10/17/2023 Assessment & Plan (10/09/2024 3:59 PM EST): Uncontrolled. Advised regarding control of DM and anxiety. Check BP at home and continue Losartan/HCTZ. Housing situation unstable 10/17/2023 Pituitary adenoma 10/17/2023 [...] mood-congruent psychotic features 04/08/2023 Assessment & Plan (10/09/2024 4:02 PM EST): Pt continues with depression symptoms. Advised to continue close FU with mental health team. Assessment & Plan (01/31/2024 11:35 AM EDT): And anxious distress. Differential includes PTSD with nightmares and flashbacks, or primary psychosis (previously diagnosed with Schizophrenia). Multiple hospitalizations. Multimodal hallucinations (auditory, visual, tactile). Few social supports, difficult relationship with adult daughter. Serious complex medical conditions with weakness and chronic pain. Psychiatric medications were started by provider in [place], with high-dose Clonazepam. She previously experienced severe [...] but she will be referred to new [facility] pyschiatric prescriber. She gives verbal permission to [...] psychiatric symptoms. Any issues or concerns, contact [facility]. All her questions were answered and I [...] Psychiatric medications were started by provider in [place], with high-dose Clonazepam. She previously experienced severe [...] months. F/U with PCP and with care t as usual. Recommend she try to reconnect [...] Psychiatric medications were started by provider in [place], with high-dose Clonazepam. She previously experienced severe [...] letters and forms, she should F/U with [facility] Medical Records. It is clear she would [...] Psychiatric medications were started by provider in [place], with high-dose Clonazepam. She previously experienced severe [...] Psychiatric medications were started by provider in [place], with high-dose Clonazepam. She previously experienced severe [...] her room will be given to the [id number]-ozc, and pt anticipates becoming homeless. Has been [...] her room will be given to the [id number], and pt anticipates becoming homeless. Has been [...] it is difficult for her to access [facility] every week fu with neurology next month Housing instability, currently housed 02/17/2023 Assessment & Plan (05/06/2023 1:51 PM EDT): Has to leave her daughter's home in 30d Will refer to [facility] to help her in the process of finding a room or snf I suggested to place her cat with the [facility] shelters for cats, at least temporarily while [...] and arguments with her daughters I provided snf information and she will follow up with [...] clinician will complete referral for psychopharmacology at [facility]. ?? Clinician educated patient on coping skills [...] ?? PLAN: 1. Follow up with [facility]: Not recommended for follow-up 2. Patient goal is to established psychiatry service 3. Behavioral Recommendations a. Patient will continue to comply with medication b. Patient will utilze new coping skills c. Patient will reach out to a [facility], if needed ?? Assessment & Plan (01/06/2023 [...] last pill. Pt to be seen by ENVIRONMENTAL SPECIALIST nurse. Pt agreed to be referred to pill boxes. Assessment & Plan (12/21/2022 3:44 PM EDT): Patient has not received fu appt from MH counselor within the past month, she cant travel to [place], would like it all within the same area ([place] or [facility]) I will refer to our service and continue same meds. Assessment & Plan (11/15/2022 11:55 AM EDT): continue Wellbutrin and Seroquel for now continue to fu closely with psychotherapist she will nut picker prescription for clonazepam today and discussed with her about requesting refill through [email or web address] at least 3 days prior to last [...] head 10/01/2022 Diabetes 09/10/2022 Assessment & Plan (10/09/2024 3:58 PM EST): Uncontrolled, she needs appointment with medical insurance collector. Start Mounjaro 2.5 mg and FU in 4 weeks to assess tolerance, I told her she needs to r/s appointment with medical insurance collector. Continue Tresiba 72 units + Humalog TID ac meals + Jardiance. I discuss with her the importance of having small infraction meals, avoid long periods of fasting. Assessment & Plan (07/17/2024 1:23 PM EST): Uncontrolled. Pt to FU with endocrinology in 3 days. Assessment & Plan (04/25/2024 3:30 PM EDT): A1c is improving, not at goal. Continue to follow up closely with medical insurance collector team. No change in medications. Assessment & [...] and FU closely with DM educator an medical insurance collector clinic Counseled re more frequent low calorie/carb meals. Encouraged physical activity as tolerated. FU in 3 months Coulsened to have Covid booster LULÚ Assessment & Plan (06/10/2023 11:36 AM EDT): Uncontrolled Counseled to use Humalog prior to each meal, she has sofia with endo scheduled on 06/22/23 at 1:30 at [facility] endo, information given to pt and reminded [...] finding adequate food, counseled to go to [place] to use HIP program. Needs to rs endocrinology appt, info given Assessment & Plan (03/24/2023 1:42 PM EDT): A1C is uncontrolled, getting worse unclear if related to seroquel and poor adherence to diet increase tresiba to 55 units per day and continue humalog start jardiance 25 mg and fu in 4-6 weeks new referral to medical insurance collector as local medical insurance collector is not accepting new patients Counseled re [...] before breakfast and dinner and refer to medical insurance collector Assessment & Plan (12/21/2022 10:23 AM EDT): [...] starts seeing psychiatrist Has an appointment with machine stone polisher fu in 2 months Assessment & Plan [...] go to ED immediately I gave her [facility] crisis information, otherwise she will FU [...] clinician will complete referral for psychopharmacology at [facility]. ?? Clinician educated patient on coping skills [...] ?? PLAN: 1. Follow up with [facility]: Not recommended for follow-up 2. Patient goal is to established psychiatry service 3. Behavioral Recommendations a. Patient will continue to comply with medication b. Patient will utilze new coping skills c. Patient will reach out to a [facility], if needed ?? Anxiety 09/10/2022 02/17/2023 Assessment & Plan (10/01/2022 10:41 AM EST): Pt on benzodiazepine for a long time probably benzo dependent Counseled to cut down on Klonopin use and take Wellbutrin and Seroquel daily Refer to [facility] Pt has crisis number and is able to contract for safety. Encounters * This document contains information received from the source organization and may not represent a complete record from that organization. Date Type Department Care Team Description 11/28/[address] [phone] Cheryl Fitzpatrick MD Care Management ([facility]- F/U call # 3) 11/21/[address] [phone] Cheryl Fitzpatrick MD Durable Medical Equipment 11/20/[address] [phone] Cheryl Fitzpatrick MD Care Management ([facility]- Appointment Reminder) 11/19/2024 Patient Outreach [address] [phone] Cheryl Fitzpatrick MD Care Coordination ([facility] outreach for SDOH housing search-referral completed ) 11/19/[address] [phone] Cheryl Fitzpatrick MD PT1 11/15/2024 Patient Outreach [address] [phone] Cheryl Fitzpatrick MD Care Coordination ([facility]- Follow up call) 11/14/[address] [phone] Cheryl Fitzpatrick MD Care Management ([facility]- Follow up call # 2) 11/12/[address] [phone] Cheryl Fitzpatrick MD Primary hypertension 11/11/[address] [address] Cheryl Fitzpatrick MD Type 2 diabetes mellitus with hyperglycemia, with long-term current use of insulin ([facility]) 11/08/2024 1:30 PM EDT Office Visit [facility] ADULT DENTAL [address] [place] [phone] Hema Hill, EMMA Complete edentulism, unspecified edentulism class (Primary Dx) 11/05/2024 Patient Outreach [address] [phone] Cheryl Fitzpatrick MD Care Coordination ([facility]#1- Follow up call-LMV) 11/02/2024 Population Health Risk Score [facility] ([facility]) [address] [phone] Provider, Population Health Generic 10/31/2024 Telephone [facility] MEDICINE [address] [place] [phone] Cheryl Fitzpatrick MD Care Management ([facility]- F/U call # 1) 10/30/[address] [phone] Cheryl Fitzpatrick MD Prior Authorization ( CYNTHIA for Ajit) 10/24/2024 Patient Outreach [address] [phone] Cheryl Fitzpatrick MD Care Coordination ([facility] Siddiqui- Follow up call) 10/23/[address] [phone] Cheryl Fitzpatrick MD Care Management ([facility]- f/u call # 1) 10/22/2024 Patient Outreach [address] [phone] Cheryl Fitzpatrick MD Care Coordination ([facility] outreach for SDOH PT-1 and food needs-referral completed /) 10/22/[address] [phone] Cheryl Fitzpatrick MD PT-1 (/) 10/17/2024 2:30 PM EST Office Visit [facility] [address] [place] [address] [phone] Hmea Hill DDS Complete edentulism, unspecified edentulism class (Primary Dx) 10/17/[address] [phone] Cheryl Fitzpatrick MD Durable Medical Equipment 10/17/[address] [phone] Cheryl Fitzpatrick MD 10/16/2024 Telephone [facility] [address] [place] [phone] Cheryl Fitzpatrick MD Error (VOID this visit) 10/15/2024 Telephone [facility] [address] [place] [phone] Cheryl Fitzpatrick MD Care Management ([facility]- initial assessment/enrollment ) 10/12/2024 Refill [facility] [address] [place] [phone] Cheryl Fitzpatrick MD Mild intermittent asthma with exacerbation 10/10/2024 Patient Outreach [facility] [address] [place] [phone] Cheryl Fitzpatrick MD Care Coordination ([facility] CM Program Initial Assessment Appt Scheduled) 10/10/[address] [phone] Cheryl Fitzpatrick MD Durable Medical Equipment 10/10/[address] [phone] Cheryl Fitzpatrick MD Med Refill 10/10/2024 Telephone [facility] [address] [place] [phone] Cheryl Fitzpatrick MD Care Management ([facility]- chart review) 10/10/2024 Refill [facility] [address] [place] [phone] Cheryl Fitzpatrick MD Type 2 diabetes mellitus with hyperglycemia, with long-term current use of insulin (CMS/HCC) 10/09/2024 1:00 PM EST Office Visit [facility] [address] [place] [phone] Cheryl Fitzpatrick MD Mixed hyperlipidemia (Primary Dx); Major depressive disorder, recurrent episode, severe with mood-congruent psychotic features (CMS/HCC); Mild intermittent asthma with exacerbation; Type 2 diabetes mellitus with hyperglycemia, with long-term current use of insulin (CMS/HCC); Primary hypertension; Encounter for immunization 10/09/2024 Travel 10/05/2024 Telephone [facility] [address] [place] [address] Cheryl Fitzpatrick MD Chart prep 2024 Patient Outreach [facility] [address] [place] [address] Cheryl Fitzpatrick MD Care Coordination ([facility]#3- Follow up call-LVM) 09/24/2024 Refill [facility] [address] [place] [address] Cheryl Fitzpatrick MD Anxiety; Migraine with aura and without status migrainosus, not intractable 09/19/2024 Refill [facility] [address] [place] [phone] Cheryl Fitzpatrick MD Migraine with aura and without status migrainosus, not intractable; Anxiety 09/14/2024 Telephone [facility] [address] [place] [phone] Cheryl Fitzpatrick MD Lab Orders 09/13/2024 Refill [facility] [address] [place] [phone] Cheryl Fitzpatrick MD Anxiety; Migraine with aura and without status migrainosus, not intractable 09/12/2024 3:30 PM EST Office Visit [facility] ADULT [facility] [address] [place] [phone] Hema Hill, EMMA Complete edentulism, unspecified edentulism class (Primary Dx) 09/11/2024 Telephone [facility] [address] [place] [phone] Cheryl Fitzpatrick MD 09/08/2024 Refill [facility] [address] [place] [phone] Cheryl Fitzpatrick MD Type 2 diabetes mellitus with hyperglycemia, with long-term current use of insulin ([facility]); Anxiety 09/07/2024 Patient Outreach [facility] [address] [place] [phone] Cheryl Fitzpatrick MD Care Coordination ([facility]#2- Follow up call-LVM) 09/05/2024 Telephone [facility] [address] [place] [address] Luz Castillo, dresser tender Question 09/05/2024 Telephone [facility] [address] [place] [address] Luz Castillo, RN Results 09/04/2024 Orders Only [facility] [address] [place] [address] Cheryl Fitzpatrick MD Elevated liver enzymes (Primary Dx); Mixed hyperlipidemia 09/04/2024 Orders Only [facility] [address] [place] [address] Cheryl Fitzpatrick MD from Last 3 Months Immunizations Name Administration Dates Next Due Hep B, adult 06/24/2023,02/17/2023,12/21/2022 Influenza injectable quadriv alent preservative free 05/05/2023 Influenza, seasonal, injecta ble, preservative free 10/09/2024 Pfizer Covid-19 Vaccine 12+ Bivalent 10/01/2022 Family [...] with others, in a hotel, in a snf, living outside on the street, on a [...] Sign Reading Time Taken Comments Blood Pressure 126/74 11/08/2024 1:24 PM EDT Pulse 98 10/09/2024 1:04 PM EST Temperature 36.5 ??C (97.7 ??F) 10/09/2024 1:04 PM ES T Respiratory Rate 16 07/17/2024 10:52 AM EST Oxygen Saturation 97% 10/09/2024 1:04 PM EST Inhaled Oxygen Concentration - - Weight 92.5 kg (204 lb) 10/09/2024 1:04 PM EST Height 167.6 cm (5' 6 ) 10/09/2024 1:04 PM EST Body Mass Index 32.93 10/09/2024 1:04 PM EST Plan of Treatment Upcoming Encounters Date Type Department Care Team (Late st Contact Info) Description 12/07/2024 9:45 AM EDT Office Visit [facility] [address] [place] [address] Cheryl Fitzpatrick MD [address] [place] [address] 12/21/2024 10:00 AM EDT Office Visit [facility] ADULT DENTAL [address] [place] [address] Hema Hill, [place] [address] [place] [address] 01/17/2025 1:00 PM EDT Office Visit [facility] OPTOMETRY [address] [place] [address] Salena Garcia, OD [address] [place] [address] Health Maintenance Due Date Last Done Comments [...] Bitewings 09/18/2023 09/17/2022 Eye Exam 12/14/2023 12/13/2022, 11/21, 12/13/2022, Additional history exists Diabetes: Foot Exam 12/22/2023 12/21/2022, 12/21/2022, 12/21/2022, Additional history exists COVID-19 Vaccine (2023- season) 2024 10/01/2022 Depression Monitoring 08/01/2024 01/31/2024, 024 Diabetes: Hemoglobin A1C 01/06/2025 025, 07/17/2024, 04/19/2024, Additional history exists Dental Oral Exam 01/26/2025 07/27/2024, 09/17/2022 Depression Screening 01/30/2025 01/31/2024, 01/31/20 24 Diagnostic Breast Imaging 03/04/2025 09/04/2024, Mammogram 03/04/2025 09/04/2024, 01/21, 12/30/2023, Additional history exists SDOH Screening 07/18/2025 07/18/2024 Diabetes: Urine Protein Screening 08/31/2025 08/31/2024, 11/09/2022, 10/24/2020 Zoster Vaccines (1 of 2) 2025 Lipid Panel 10/04/2025 10/04/2024, 08/22, 11/09/2022, Additional history exists Tobacco Screening 11/08/2025 11/08/2024 Dental X-Ray: Full Mouth 07/28/2027 024, 02/08/2023, 09/17/2022 Colonoscopy 04/27/2028 04/27/2023 Colorectal Cancer Screening 04/27/2028 RSV Patients and Patients Aged 60 years or older (1 - 1-dose 75+ series) 2050 HPV/Cotest Discontinued 11/29/2022 Hepatitis B Vaccines Completed 06/24/2023, 02/17/2023, 12/21/2022 Cervical Cancer Screening Discontinued Pap Smear Discontinued 12/14/2023, 11/29/2022 HIV Screening Completed 10/04/2024, 03/2023, 11/29/2022, Additional history exists Hepatitis C Screening Completed 10/04/2024 , 06/29/2023, 11/29/2022 Influenza Vaccine Completed 10/09/2024, 05/05/2023 HIB Vaccines Aged Out No longer eligi [...] 126/74(2024 1:24 PM EDT) No Kenzie Tran PharmD Hemoglobin A1c < 7 Result Component 8.3( 1:13 PM EST) No Kenzie Tran PharmD Procedures Procedure Name Priority Date/Time Associated Diagnosis Comments CASE PRESENTATION, DETAILED AND EXTENSIVE TREATMENT PLANNING Routine 11/08/2024 1:30 PM EDT Max COMPLETE DENTURE - MAXILLARY Routine 11/08/2024 1:30 PM EDT Misa COMPLETE DENTURE - MANDIBULAR Routine 11/08/2024 1:30 PM EDT WAX TRY IN Routine 10/17/2024 2:30 PM EST POCT GLYCATED HEMOGLOBIN, TOTAL Routine 10/09/2024 1:13 PM EST Type 2 diabetes mellitus with hyperglycemia, with long-term current use of insulin (CMS/HCC) POCT GLUCOSE Routine 10/09/2024 1:05 PM EST Type 2 diabetes mellitus with hyperglycemia, with long-term current use of insulin (CMS/HCC) CBC WITH AUTO DIFFERENTIAL Routine 10/04/2024 8:16 AM EST Elevated liver enzymes Mixed hyperlipidemia HIV 1/2 ANTIGEN/ANTIBODY, FOURTH GENERATION W/RFL Routine 10/04/2024 8:16 AM EST Elevated liver enzymes Mixed hyperlipidemia HEPATITIS PANEL, GENERAL Routine 10/04/2024 8:16 AM EST Elevated liver enzymes Mixed hyperlipidemia LIPID PANEL WITH REFLEX TO DIRECT LDL Routine 10/04/2024 8:16 AM EST Elevated liver enzymes Mixed hyperlipidemia HEPATIC FUNCTION PANEL Routine 10/04/2024 8:16 AM EST Elevated liver enzymes Mixed hyperlipidemia GGT Routine 10/04/2024 8:16 AM EST Elevated liver enzymes Mixed hyperlipidemia WAX TRY IN Routine 09/12/2024 3:30 PM EST BI MAMMOGRAM DIAGNOSTIC RIGHT Routine 09/04/2024 11:15 AM EST T-SPOT(R).TB Routine 08/31/2024 2:09 PM EST Encounter for preventive health examination VITAMIN D,25-OH,TOTAL,IA Routine 08/31/2024 2:09 PM EST Type 2 diabetes mellitus with hyperglycemia, with long-term current use of insulin ([facility]) COMPREHENSIVE METABOLIC PANEL Routine 08/31/2024 2:09 PM EST Type 2 diabetes mellitus with hyperglycemia, with long-term current use of insulin ([facility]) LIPID PANEL WITH REFLEX TO DIRECT LDL Routine 08/31/2024 2:09 PM EST Type 2 diabetes mellitus with hyperglycemia, with long-term current use of insulin ([facility]) ALBUMIN, RANDOM URINE W/CREATININE Routine 08/31/2024 2:09 PM EST Type 2 diabetes mellitus with hyperglycemia, with long-term current use of insulin ([facility]) PANORAMIC RADIOGRAPHIC IMAGE Routine 07/27/2024 9:00 AM EST PERIODIC ORAL EVALUATION - ESTABLISHED PATIENT Routine 07/27/2024 9:00 AM EST PAP SMEAR Routine 12/14/2023 11:23 AM EDT History of cervical cancer Encounter for cervical Pap smear with pelvic exam HM COLONOSCOPY Routine 04/27/2023 IMAGE-GUIDED PAP W/AGE BASED SCR,W/CT/NG/TRICH Routine 11/29/2022 10:52 AM EDT Cervical cancer screening Screening examination for venereal disease INTRAORAL - COMPLETE SERIES OF RADIOGRAPHIC IMAGES Routine 09/17/2022 9:30 AM EST Dental caries from Last 3 Months or Most Recently Relevant to Health Maintenance Results * (ABNORMAL) POCT HGB A1C (10/09/2024 1:13 PM EST) Pathologist [facility] Hemoglobin A1C 8.3(A) 4.0 - 6.0 % QC Media Lot # [id number] Lot# Expiration Date Blood 10/09/2024 1:13 PM EST Cheryl Fitzpatrick MD POINT OF CARE TEST ENTER /EDIT ORDERABLES Final Result * POCT Glucose (10/09/2024 1:05 PM EST) Glucose Blood, POC 179 60 - 200 mg/dL QC Media Lot # [id number] Lot# Expiration Date Blood Capillary blood specimen / Unknown 10/09/2024 1:05 PM EST Cheryl Fitzpatrick MD POINT OF CARE TEST ENTER /EDIT ORDERABLES Final Result * (ABNORMAL) Lipid Panel with Reflex to Direct LDL (10/04/2024 8:16 AM EST) Only the most recent of2 resultswithin the time period is included. Triglycerides 200(H) <150 mg/dL [facility] Comment:Desirable Triglyceri de: less than 150 mg/dLBorderline High Triglyceride 150-199 mg/dLHigh Triglyceride: 200-499 mg/dLVery High Triglyceride: greater than or equal to 5OO mg/dL Cholesterol 236(H) <200 mg/dL [facility] Comment:Desirable Cholestero l: less than 200 mg/dLBorderline High Cholesterol: 200-239 mg/dLHigh Cholesterol: greater than 239 mg/dL LDL Cholesterol Calculated 152(H) <100 mg/dL [facility] Comment:Desirable LDL: less than 100 mg/dLNear Optimal/Above Optimal LDL: 110- 129 mg/dLBorderline High LDL: 130-159 mg/dLHigh LDL: 160-189 mg/dLVery High LDL: greater than or equal to 190 mg/dL HDL Cholesterol 44 >40 mg/dL [facility] Comment:Desirable HDL: great er than 40 mg/dL Note: This HDL assay may give artificially low results in patients with liver disease. Blood 10/04/2024 8:16 AM EST 10/04/2024 11:15 AM EST Cheryl Fitzpatrick MD LAB BLOOD ORDERABLES Fin al Result Performing Organization Address [facility] Co de Phone Number [facility] [address] [place] [address] [phone] * Hepatitis Panel, General (10/04/2024 8:16 AM EST) [facility] Hepatitis A IgM Nonreactive Nonreactive [facility] Comment:IgM antibodies to GUILLORY V not detected; does not exclude earlyacute or recovered HAV infection. ~Hepatitis B Surface Antibody REACTIVE Nonreactive [facility] Comment:REACTIVE: > 11.99 mI U/mL Hepatitis B Core Antibody Nonreactive Nonreactive [facility] Hepatitis C Antibody Nonreactive Nonreactive [facility] Comment:Antibodies to HCV no t detected; does not exclude early acuteHCV infection. Hepatitis B Surface Ag Negative Negative [facility] Blood 10/04/2024 8:16 AM EST 10/04/2024 11:15 AM EST Cheryl Fitzpatrick MD LAB BLOOD ORDERABLES Fin al Result Performing Organization Address [facility] Co de Phone Number [facility] [address] [place] [address] [phone] * CBC auto differential (10/04/2024 8:16 AM EST) [facility] White Blood Count 5.8 4.8 - 10.8 X10*3/uL [facility] Red Blood Count 4.78 4.20 - 5.50 X10*6/uL [facility] Hemoglobin 13.8 12.0 - 16.0 g/dl [facility] Hematocrit 41.4 37.0 - 47.0 % [facility] Mean Corpuscular Volume 86.6 80.0 - 98.0 fL [facility] Mean Corpuscular Hemoglobin 28.9 27.0 - 33.0 pg [facility] Mean Corpuscular HGB Conc 33.3 31.0 - 35.0 g/dl [facility] Red Cell Distribution Width 14.0 11.0 - 16.0 % [facility] Platelet Count 318 160 - 400 X10*3/uL [facility] Mean Platelet Volume 10.5 9.4 - 12.3 fL [facility] Neutrophils Percent Auto 54.7 45 - 73 % [facility] Imm Gran Pct Auto 0.3 0.0 - 0.4 % [facility] Lymphocytes Percent Auto 36.0 20 - 40 % [facility] Monocytes Percent Auto 5.9 2 - 11 % [facility] Eosinophils Percent Auto 2.6 0 - 4 % [facility] Basophils Percent Auto 0.5 0 - 2 % [facility] NRBC Pct Auto 0.0 0.0 - 0.2 /100WBC [facility] Neutrophils Absolute Auto 3.1 2.0 - 8.3 x10*3/uL [facility] Imm Gran Abs Auto 0.02 0.00 - 0.03 X10*3/uL [facility] Lymphocytes Absolute Auto 2.1 1.2 - 4.9 X10*3/uL [facility] Monocytes Absolute Auto 0.3 0.1 - 1.2 X10*3/uL [facility] Eosinophils Absolute Auto 0.2 0.0 - 0.4 X10*3/uL [facility] Basophils Absolute Auto 0.0 0.0 - 0.2 X10*3/uL [facility] NRBC Abs Auto 0.000 0.0 - 0.012 X10*3/uL [facility] Blood Venous blood specimen / Unknown 10/04/2024 8:16 AM EST 10/04/2024 11:15 AM EST us Cheryl Fitzpatrick MD LAB BLOOD ORDERABLES Fin al Result [facility] [address] [place] [phone] * HIV-1/2 Antigen and Antibodies, Fourth Generation, with Reflexes (10/04/2024 8:16 AM EST) HIV AB/AG Nonreactive Nonreactive [facility] Comment:HIV-1 p24 Ag and/or HIV-1/HIV-2 Ab not detected.A test result that is nonreactive does not exclude thepossibility of exposure to or infection with HIV-1 and/orHIV-2. Nonreactive results in this assay for individualswith prior exposure to HIV-1 and/or HIV-2 may be due toantigen and antibody levels that are below the limit ofdetection of this assay.The Camalize SL HIV Ag/Ab Combo assay result andsupplemental assay results should be interpreted inconjunction with the patient's clinical presentation,history and other laboratory results. If the results areinconsistent with clinical evidence, additional testing issuggested to confirm the result. Blood Venous blood specimen / Unknown 10/04/2024 8:16 AM EST 10/04/2024 11:15 AM EST Cheryl Fitzpatrick MD LAB BLOOD ORDERABLES Fin al Result Performing Organization Address City/[facility] Co de Phone Number [facility] [address] [place] [phone] * Gamma Glutamyl Transferase (GGT) (10/04/2024 8:16 AM EST) Gamma Glutamyl Transpeptidase 27 7 - 33 U/L [facility] Blood Venous blood specimen / Unknown 10/04/2024 8:16 AM EST 10/04/2024 11:15 AM EST Cheryl Fitzpatrick MD LAB BLOOD ORDERABLES Fin al Result Performing Organization Address [facility] Co de Phone Number [facility] [address] [place] [phone] * (ABNORMAL) Hepatic Function Panel (10/04/2024 8:16 AM EST) Bilirubin, Total 0.2 0.0 - 1.0 mg/dL [facility] Bilirubin, Direct <0.2 0.0 - 0.5 mg/dL [facility] Aspartate Amino Transferase 34(H) 5 - 31 U/L [facility] Alanine Aminotransferase 44(H) 0 - 31 U/L [facility] Total Protein 7.6 6.5 - 8.0 g/dL [facility] Albumin Level 4.5 3.5 - 5.0 g/dL [facility] Alkaline Phosphatase 79 39 - 117 U/L [facility] Blood Venous blood specimen / Unknown 10/04/2024 8:16 AM EST 10/04/2024 11:15 AM EST us Cheryl Fitzpatrick MD LAB BLOOD ORDERABLES Fin al Result Performing Organization Address City/State/[facility] Co de Phone Number [facility] [address] [place] [address] [phone] * Mammogram Diagnostic Right (09/04/2024 11:15 AM EST) Anatomical Region Laterality Modality Breast Right Mammography 09/04/2024 11:1 5 AM EST Narrative 09/04/2024 11:58 AM EST ? [facility] ? [address] ?[place] [address] ? Mammography Report ? Signed ? Patient: Alejo Alonsomildred,Lizet ?MR# ?? : [id number] ? : 1975 ?Acct:[id number] ? Age/Sex: 48 / F ?ADM Date: 01/14/25 ? Loc: HO.MAMMO ? Attending Dr: Cheryl Fitzpatrick MD ? Ordering Physician: Cheryl Fitzpatrick MD ?Results: 3.6MProbably Benign Finding - Short 6 M F/U ?? Suggested ? Date of Service: 09/04/24 ?Follow Up: 6 Month F/U ? Procedure(s): MM diagnostic mammo unilat RT ?? Accession Number(s): [id number] ? cc: Cheryl Fitzpatrick MD ? EXAMINATION: [...] DD/ 1115 ? TD/TT: 09/04/24 1145 ? Ornamental Metal Worker Helper: ? Procedure Note Donotbenjieinterpreter, Image - 09/04/2024 [place] [facility] [address] [place] [address] Mammography Report Signed Patient: Augusto Cash# : [id number] : 1975Acct:[id number] Age/Sex: 48 / FADM Date: 09/04/24 Loc: HO.MAMMO Attending Dr: Cheryl Fiztpatrick MD Ordering Physician: Cheryl Fitzpatrick MD Results: 3.6MProbably Benign Finding - Short 6 M F/U Suggested Date of Service: 09/04/24Follow Up: 6 Month F/U Procedure(s): MM diagnostic mammo unilat RT Accession Number(s): [id number] cc: Cheryl Fitzpatrick MD EXAMINATION: MM DIAGNOSTIC [...] 09/04/24 1155 DD/ 1115 TD/TT: 09/04/24 1145 Ornamental Metal Worker Helper: us Cheryl Fitzpatrick MD IMG BI PROCEDURES Final Result * Vitamin D, 25-Hydroxy, Total, Immunoassay (08/31/2024 2:09 PM EST) Vitamin D 25-OH Total 99.0 >30 ng/mL [facility] Comment:Health Based Referen ce Values*< 20 ng/mL Jqyrtqwey62-60 ng/mL Insufficient> 30 ng/mL Sufficient*Nohemy QUILES. N [...] MD LAB BLOOD ORDERABLES Fin al Result [facility] [address] [place] [phone] * T-SPOT??.TB (08/31/2024 2:09 PM EST) T Spot TB Negative Negative [facility] Comment:A negative test resu lt does [...] as aquantitative test. TS PANEL A 1 [facility] TS PANEL B 0 [facility] Negative Control Passed [facility] Positive Control Passed [facility] Comment:For additional infor carlosdaniela, please refer tohttp://education.Fishbowl/faq/CYI336(This link is being provided for informational/educational purposes only.)THIS TEST WAS PERFORMED AT:[employer] [id number] [place] [address]FDJARIMLIO GARZA MD,PHD 08/31/2024 2:09 PM EST 08/31/2024 4:04 PM EST us Cheryl Fitzpatrick MD LAB BLOOD ORDERABLES Fin al Result [facility] [address] [place] [address] [phone] * Albumin, Random Urine W/Creatinine (08/31/2024 2:09 PM EST) Pathologist [facility] Creatinine, Urine 31.14 mg/dL [facility] Microalbumin Urine <5.0 mg/L [facility] Microalbum Creatinine Ratio Ur TNP <30 ug/mg cr [facility] Comment:Unable to calculate albumin/creatinine ratio due to lowmicroalbumin or creatinine result. Urine (Urine, Random) 08/31/2024 2:09 PM EST 08/31/2024 4:00 PM EST us Cheryl Fitzpatrick MD LAB URINE ORDERABLES Fin al Result [facility] [address] [place] [phone] * (ABNORMAL) Comprehensive Metabolic Panel (08/31/2024 2:09 PM EST) Sodium 138 135 - 145 mmol/L [facility] Potassium 3.8 3.3 - 5.1 mmol/L [facility] Chloride 107 96 - 108 mmol/L [facility] Carbon Dioxide 24 22 - 29 mmol/L [facility] Anion Gap 11(L) 12 - 20 [facility] Urea Nitrogen (BUN) 13 9 - 16 mg/dL [facility] Creatinine, Serum 0.71 0.5 - 1.4 mg/dL [facility] Estimated Glomerular Filt Rate >60 [facility] Comment:Chronic Kidney Disea se: Estimated GFR < 60 mL/min/1.42w4Ijjpid Kidney Disease: Estimated GFR < 15 mL/min/1.73m2 Glucose 153(H) 60 - 115 mg/dL [facility] Calcium 9.4 8.4 - 10.2 mg/dL [facility] Bilirubin, Total 0.2 0.0 - 1.0 mg/dL [facility] Aspartate Amino Transferase 38(H) 5 - 31 U/L [facility] Alanine Aminotransferase 63(H) 0 - 31 U/L [facility] Total Protein 8.0 6.5 - 8.0 g/dL [facility] Albumin Level 4.4 3.5 - 5.0 g/dL [facility] Alkaline Phosphatase 94 39 - 117 U/L [facility] Blood Venous blood specimen / Unknown 08/31/2024 2:09 PM EST 08/31/2024 4:04 PM EST Cheryl Fitzpatrick MD LAB BLOOD ORDERABLES Fin al Result [facility] [address] [place] [phone] * Pap Smear (12/14/2023 11:23 AM EDT) Swab Cervix uteri structure / Unknown 12/14/2023 11:23 AM EDT 12/14/2023 2:20 PM EDT Narrative [facility] - 01/02/2024 11:54 AM EDT ----- ------- Name: Lizet Cash ? Age/Sex: 48/F ? : 1975 Unit#: [id number] ?? Attend Dr: Cheryl Fitzpatrick MD ?Re12/14/23 ?Status: DEP REF ? Location: HO.LNP ?Disch: ? ----- ------- SPEC : [id number] ? RECD: 12/14/23-1419 ? STATUS: ??SOUT ? REQ NUM: [id number] ? JUANCARLOS: 12/14/23-1122 ? SUBM DR: Cheryl Fitzpatrick MD ? ENTERED: ??12/14/23-0117 ?SP TYPE: Pap Smr ?OTHR : ? [...] ----- ------- ? END OF REPORT ? Cheryl Fitzpatrick MD LAB CYTOLOGY ORDERABLES Final Result Performing Organization Address [facility]/ZIP Co de Phone Number [facility] [address] [place], [place] [phone] * (ABNORMAL) Hm Colonoscopy (04/27/2023) Colonoscopy Abnormal(A ) Normal [facility] Cheryl Fitzpatrick MD HEALTH MAINTENANCE Final Result Performing Organization Address [facility] Co de Phone Number [facility] [address] [place], [place] [phone] * Image-Guided Pap with Age-Based Screening??with CT/NG,??Trichomonas (11/29/2022 10:52 AM EDT) Comment [facility] Comment: This order for age-based cervical cancer and STI screening follows ACOG guidelines(PB 168, 140, CHN728). See individual assays for performing site location. Clinical Information: HISTORY OF HYST DUE YUSUF [facility] LMP: NONE GIVEN [facility] Prev. PAP: YES [facility] Prev. BX: NONE GIVEN [facility] SOURCE: None given [facility] Statement Of Adequacy: SATISFACTORY FOR EVALUATION [facility] Interpretation/Re sult: Negative for intraepithelial lesion or malignancy. [facility] COMMENT: This Pap test has been evaluated with computer assisted technology. [facility] Assistant Bookkeeper: [employer] [place] [facility] Comment: KF, CT(ASCP) CT screening location: [address] ??[phone] Review Assistant Bookkeeper: [employer] [place] [employer] Comment: BLC,CT(ASCP) CT screening location: [address] ??[phone] (Always Message) [facility] [place] [employer] Comment: EXPLANATORY NOTE: The Pap is a [...] HPV nRNA E6/E7 Not Detected Not Detected [facility] [place] [facility] Comment: Methodology: Camera Mechanic-Mediated Amplification This assay detects E6/E7 viral messenger RNA (mRNA) from 14 high-risk HPV types (16,18,31,33,35,39,45,51,52,56,58,59,66,68). Cervical sources are required for HPV testing. If a vaginal source from a patient who has had a total hysterectomy with removal of cervix was submitted, please contact the testing laboratory for alternative testing options. For additional information, please refer to http://[employer] [place].Fishbowl/faq/ADS509n5 (This link if provided for information/ educational purposes only.) Chlamydia trachomatis RNA, TMA, Urogenital NOT DETECTED NOT DETECTED [facility] [place] [facility] Neisseria gonorrhoeae RNA, TMA, Urogenital NOT DETECTED NOT DETECTED [facility] [place] [facility] (Always Message) Que [employer] [place] [facility] Comment: The analytical performance characteristics of this assay, when used to test SurePath(TM) specimens have been determined by [facility]. The modifications have not been cleared or approved by the FDA. This assay has been validated pursuant to the CLIA regulations and is used for clinical purposes. For additional information, please refer to https://[employer] [place].Fishbowl/faq/ZST939 (This link is being provided for information/ educational purposes only.) Trichomonas vaginalis, QL, TMA, PAP Vial NOT DETECTED NOT DETECTED [facility] Comment: The analytical performance characteristics of this assay have been determined by [facility]. The modifications have not been cleared or approved by the FDA. This assay has been validated pursuant to the CLIA regulations and is used for clinical purposes. For additional information, please refer to http://education.Fishbowl/ faq/Trichomonastma (This link is being provided for information/ educational purposes only.) Cytology specimen container (physical object) 11/29/2022 10:52 AM EDT 11/30/2022 12:36 AM EDT Leeann MONROE LAB CYTOLOGY ORDERABLES F inal Result [facility] [address], [place] [address] [facility] [place] [employer] [address] [place] [address] from Last 3 Months or Most Recently Relevant to Health Maintenance Insurance [facility] [place] [id number] [place] [id number] [place] [id number] [place] [id number] Care Teams County Director Relationship Specialty Start Date End Date Cheryl Fitzpatrick MD [address] [place] [phone] PCP - General Internal Medicine 09/10/22 Nick Castellanos FNP [address] [place] [address] Nurse Practitioner Family Medicine 07/04/23 Apolonia Mars medicare sales executive Social Media StrategistPrint Machine Operator 11/16/23
--- OUTSIDE RECORDS SUMMARY | 2024-11-29 08:25 | XMS_ITS | Encounter Summary ---
Author Organization [employer] Address [address] [facility] [address] [place] [address] Care Team Providers Care Supervisor Felling Bucking Name Role Phone Cheryl Fitzpatrick MD Primary Care Provider + Edu Leung PharmD Unavailable [phone] Nick Castellanos RACETRACK STEWARD Unavailable Unavailable Reason for Visit * Reason Comments Med Refill Encounter Details Date Type Department Care Team (Late st Contact Info) Description 12/09/2022 Refill [facility] [address] [place], [place] [phone] Cheryl Fitzpatrick MD [address] [place], [place] [phone] Type 2 diabetes mellitus with hyperglycemia, with long-term current use of insulin ([facility] Anxiety Social History Tobacco Use Types Packs/Day [...] 12/07/2024 9:45 AM EDT Office Visit [facility] [address] [place] [address] Cehryl Fitzpatrick MD [address] [place] [address] 12/21/2024 10:00 AM EDT Office Visit [facility] ADULT DENTAL [address] [place] [address] Hema Hill DDS [address] [place] [address] 01/17/2025 1:00 PM EDT Office Visit [facility] OPTOMETRY [address] [place] [address] Salena Garcia OD [address] [place] [address] documented as of this encounter Visit Diagnoses Diagnosis Type 2 diabetes mellitus with hyperglycemia, with long-term current use of insulin ([facility]) Anxiety Anxiety state, unspecified documented in this encounter Additional Health Concerns Assessment Noted Time PHQ-9 Depression Total Score: 9 11/16/19 23 10:11 AM EDT documented as of this encounter Care Teams Supervisor Felling Bucking Relationship Specialty Start Date End Date Cheryl Fitzpatrick MD [address] [place] [phone] PCP - General Internal Medicine 09/10/22 Edu Leung, PharmD [address] [place] [phone] Pharmacist Internal Medicine 06/14/23 06/28/23 Nick Castellanos FNP [address] [place] [address] Nurse Practitioner Family Medicine 07/04/23 Court Shay Post Doctoral Researcher 11/11/23 02/10/24 Apolonia Mars career services representative Post Doctoral ResearcherPlastic Dolls Mold Filler 11/16/23 documented as of this encounter
--- OUTSIDE RECORDS SUMMARY | 2024-11-29 08:25 | XMS_ITS | Encounter Summary ---
Author Organization [employer] Address [address] [facility] [facility] [address] 7[address] [place] [address] Care Team Providers Care Composing Room Machinist Name Role Phone Cheryl Fitzpatrick MD Primary Care Provider + Nick Castellanos Unavailable Unavailable Reason for Visit * Reason Comments Med Refill Encounter Details Date Type Department Care Team (Late st Contact Info) Description 09/29/2023 Refill [facility] [address] [place], [place] [phone] Cheryl Fitzpatrick MD [address] [place], [place] [phone] Anxiety; Migraine with aura and without status [...] Description 12/07/2024 9:45 AM EDT Office Visit [facility] [address] [place] [address] Cheryl Fitzpatrick MD [address] [place] [address] 12/21/2024 10:00 AM EDT Office Visit [facility] ADULT DENTAL [address] [place] [address] Hema Hill DDS [address] [place] [address] 01/17/2025 1:00 PM EDT Office Visit [facility] OPTOMETRY [address] [place] [address] Salena Garcia, OD [address] [place] [address] documented as of this encounter Goals Goal [...] documented as of this encounter Care Teams Composing Room Machinist Relationship Specialty Start Date End Date Cheryl Fitzpatrick MD [address] [place] [address] PCP - General Internal Medicine 09/10/22 Nick Castellanos FNP [address] [place] [address] Nurse Practitioner Family Medicine 07/04/23 Court Shay Fund Accounting Manager 11/11/23 02/10/24 Apolonia Mars healthcare manager Fund Accounting ManagerMachine Operator Replanter 11/16/23 documented as of this encounter
--- OUTSIDE RECORDS SUMMARY | 2024-11-29 08:25 | XMS_ITS | Encounter Summary ---
Author Organization [employer] Address [address] [facility] 7t [place] [address] Care Team Providers Care Stem Cutter Name Role Phone Cheryl Fitzpatrick MD Primary Care Provider + Nick Castellanos Unavailable Unavailable Reason for Visit * Reason Onset Date Comments Paperwork/Forms 10/19/2023 Encounter Details Date Type Department Care Team ([facility] st Contact Info) Description 10/19/2023 Telephone [facility] [address] [place], [place] [phone] Cheryl Fitzpatrick MD [address] [place], [place] [phone] Paperwork/Forms Social History Tobacco Use Types Packs/Day [...] with others, in a hotel, in a alf, living outside on the street, on a [...] to welfare before they close her case. [employer] Reclamation Engineer advised pt she has an appointment this Tuesday (10/19) with provider. Please contact pt at [phone] ([place]) documented in this encounter Plan of Treatment Upcoming Encounters Date Type Department Care Team (Late st Contact Info) Description 12/07/2024 9:45 AM EDT Office Visit [facility] [address] [place] [address] Cheryl Fitzpatrick MD [address] [place] [address] 12/21/2024 10:00 AM EDT Office Visit [facility] [address] [place] [address] Hema Hill DDS [address] [place] [address] 01/17/2025 1:00 PM EDT Office Visit [facility] [address] [place] [address] Salena Garcia OD [address] [place] [address] documented as of this encounter Goals Goal Patient Goal Type Associated Problems Recent Progress Patient-Stated? Author Blood Pressure < 140/90 Blood Pressure 126/74(2024 1:24 PM EDT) No Yongs-Gambl Fay diazsa, PharmD Hemoglobin A1c < 7 Result Component 8.3( 1:13 PM EST) No Yongs-Kenzie Malik, PharmD documented as of this encounter Visit Diagnoses Not on filedocumented in this encounter Additional Health Concerns Assessment Noted Time PHQ-9 Depression Total Score: 11 024 9:34 AM EST documented as of this encounter Care Teams Stem Cutter Relationship Specialty Start Date End Date Cheryl Fitzpatrick MD [address] [place] [address] PCP - General Internal Medicine 09/10/22 Nick Castellanos FNP [address] [place] [address] Nurse Practitioner Family Medicine 07/04/23 Court Shay Conductor Pullman 11/11/23 02/10/24 Apolonia Mars primary care physician Conductor PullmanMachine Clipper 11/16/23 documented as of this encounter
--- OUTSIDE RECORDS SUMMARY | 2024-11-29 08:25 | XMS_ITS | Encounter Summary ---
Author Organization [employer] Address [address] [facility] 7t [place] [address] Care Team Providers Care Grease Machine Worker Name Role Phone Cheryl Fitzpatrick MD Primary Care Provider + Nick Castellanos Unavailable Unavailable Reason for Visit * Reason Onset Date Comments Created in error 03/20/2024 Encounter Details Date Type Department Care Team ([facility] st Contact Info) Description 03/20/2024 Telephone [facility] MEDICINE [address] [place], [place] [phone] Cheryl Fitzpatrick MD [address] [place], [place] [phone] Created in error Social History Tobacco Use [...] 9:45 AM EDT Office Visit [facility] MEDICINE [address] [place] [address] Cheryl Fitzpatrick MD [address] [place] [address] 12/21/2024 10:00 AM EDT Office Visit [facility] ADULT DENTAL [address] [place] [address] Hema Hill DDS [address] [place] [address] 01/17/2025 1:00 PM EDT Office Visit [facility] OPTOMETRY [address] [place] [address] Salena Garcia, OD [address] [place] [address] documented as of this encounter Goals Goal [...] documented as of this encounter Care Teams Grease Machine Worker Relationship Specialty Start Date End Date Cheryl Fitzpatrick MD [address] [place] [address] PCP - General Internal Medicine 09/10/22 Nick Castellanos FNP [address] [place] [address] Nurse Practitioner Family Medicine 07/04/23 Apolonia Mars healthcare marketer Assessment NurseFrontload Driver 11/16/23 documented as of this encounter
--- OUTSIDE RECORDS SUMMARY | 2024-11-29 08:25 | XMS_ITS | Encounter Summary ---
Author Organization [employer] Address [address] [facility] 7t [place] [address] Care Team Providers Care Etcher Apprentice Name Role Phone Cheryl Fitzpatrick MD Primary Care Provider + Edu Leung PharmD Unavailable [phone] Nick Castellanos GENERAL MANAGER FARM Unavailable Unavailable Reason for Visit * Reason Comments Med Refill Encounter Details Date Type Department Care Team (Late st Contact Info) Description 10/05/2022 Refill [facility] WALK-IN [address] [phone] Name, MD Pradeep [address] [place] [address] [phone] Type 2 diabetes mellitus with hyperglycemia, with long-term current use of insulin ([facility]); Anxiety Social History Tobacco Use Types Packs/Day [...] Description 12/07/2024 9:45 AM EDT Office Visit [facility] MEDICINE [address] [place] [address] Cheryl Fitzpatrick MD [address] [place] [address] 12/21/2024 10:00 AM EDT Office Visit [facility] ADULT DENTAL [address] [place] [address] Hema Hill DDS [address] [place] [address] 01/17/2025 1:00 PM EDT Office Visit [facility] OPTOMETRY [address] [place] [address] Salena Garcia OD [address] [place] [address] documented as of this encounter Visit Diagnoses Diagnosis Type 2 diabetes mellitus with hyperglycemia, with long-term current use of insulin ([facility]) Anxiety Anxiety state, unspecified documented in this encounter Additional Health Concerns Assessment Noted Time PHQ-9 Depression Total Score: 19 023 9:39 AM EST documented as of this encounter Care Teams Etcher Apprentice Relationship Specialty Start Date End Date Cheryl Fitzpatrick MD [address] [place] [address] PCP - General Internal Medicine 09/10/22 Edu Leung, PharmD [address] [place] [address] Pharmacist Internal Medicine 06/14/23 06/28/23 Nick Castellanos FNP [address] [place] [address] Nurse Practitioner Family Medicine 07/04/23 Court Shay Mft 11/11/23 02/10/24 Apolonia Mars rn care manager MftChef Assistant 11/16/23 documented as of this encounter
[2024-11-29 12:03] LABS: Alanine Aminotransferase 40 U/L (0-31); Albumin Level 4.2 g/dL (3.5-5.0); Alkaline Phosphatase 75 U/L (39-117); Aspartate Amino Transferase 36 U/L (5-31); Bilirubin Direct < 0.2 mg/dL (0.0-0.5); Bilirubin Total 0.2 mg/dL (0.0-1.0); Cholesterol 144 mg/dL (<200); HDL Cholesterol 37 mg/dL (>40); LDL Cholesterol Calculated 72 mg/dL (<100); Triglycerides 178 mg/dL (<150)
[2024-11-29 13:45] LABS: Reflex LDLD? No
== END 2024-11-29 08:17 | disposition home or self-care (01) ==
LOC: HO.HHCL 08:16
PROVIDERS: Visit Provider Internal Medicine
DX: E78.2 Mixed hyperlipidemia (principal)
CPT/HCPCS: 36415; 80061; 80076

== ENCOUNTER 2025-01-17 15:42 | Outpatient (AMB) | payer MEDICAID, SELFPAY ==
--- OUTSIDE RECORDS SUMMARY | 2025-01-17 15:44 | XMS_ITS | Encounter Summary ---
Author Organization [employer] Address [address] [facility] 7t [place] [address] Care Team Providers Care Nurse Extern Name Role Phone Cheryl Fitzpatrick MD Primary Care Provider + Nick Castellanos Unavailable Unavailable Reason for Visit * Reason Comments Med Refill Encounter Details Date Type Department Care Team (Late st Contact Info) Description 09/13/2024 Refill [facility] MEDICINE [address] [place], [place] [phone] Cheryl Fitzpatrick MD [address] [place], [place] [phone] Anxiety; Migraine with aura and without status [...] others, in a hotel, in a senior care, living outside on the street, on a [...] Care Team (Late st Contact Info) Description 03/08/2025 11:45 AM EDT Office Visit [facility] MEDICINE [address] [place] [address] Cheryl Fitzpatrick MD [address] [place] [address] documented as of this encounter Goals Goal Patient Goal Type Associated Problems Recent Progress Patient-Stated? Author Blood Pressure < 140/90 Blood Pressure 124/72(2024 9:56 AM EDT) No Kenzie Tran PharmD Hemoglobin A1c < 7 Result Component 8.3( 5 1:13 PM EST) No Kenzie Tran, PharmD documented as of this encounter Visit Diagnoses Diagnosis Anxiety Anxiety state, unspecified Migraine with aura and without status migrainosus, not intractable documented in this encounter Additional Health Concerns Assessment Noted Time PHQ-9 Depression Total Score: 10 024 10:01 AM EDT documented as of this encounter Care Teams Nurse Extern Relationship Specialty Start Date End Date Cheryl Fitzpatrick MD [address] [place] [address] PCP - General Internal Medicine 09/10/22 Nick Castellanos FNP [address] [place] [address] Nurse Practitioner Family Medicine 07/04/23 Apolonia Mars reservoir caretaker Manager LaboratoryCapacity Planning Manager 11/16/23 documented as of this encounter
--- NOTE | 2025-01-17 15:50 | A.OFFVIS_ITS ---
Intake Visit Reasons: Bulkamid followup Intake Note: Patient is present for BULKAMID FOLLOW UP Urology Medication:MACROBID Antibiotic Allergy:SULFA Blood Thinner:NONE Todays PVR: 0 Patient reports that she is unable to complete UA Herbicide Sprayer Required: Yes Herbicide Sprayer Services: Herbicide Sprayer Present Herbicide Sprayer Name: Eloise Information Interpreted: non-clinical & clinical Allergies Sulfa (Sulfonamide Antibiotics) Allergy (Verified 09/05/24 14:58) Unknown HPI Comments Details: 01/17/25-- Lizet is status post urethral bulking for stress urinary incontinence May 2024. 05/11/24--Lizet is here for urodynamics. CMG parameters detailed below. The patient has complaints of urinary incontinence. Interpretation: During the filling phase there was normal sensation, sensory urgency was observed. The patient felt that she was at capacity at 310 mL, she was unable to void with the catheters in place and voided 605 mL once catheters were removed. (the patient states she took her diuretic med this morning. Leakage was observed during valsalva. Findings consistent with ISD. EMG- Appropriate changes in the waveforms were noted through out the study. There was a decrease in the EMG activity during the voiding c/w normal function of the pelvic floor. I have discussed the risks of bulking injection to the proximal urethra to include but not limited to urine retention requiring a melo catheter, need to repeat the procedure, hematuria, and urgency. 03/22/24--48 year old female with complaints of urinary incontinence associated with coughing and urinary urgency. Discussed further evaluation with urodynamics, and renal/bladder US. 02/01/24--One Hysterectomy 2014, Previous evaluation in [place] with diagnosis of cystocele and stress incontinence Referred Dr. Hernandez for pelvic exam and decision of prolapse repair versus isolated stress incontinence procedure [facility] Medical History Upper extremity weakness Myositis Chest pain Diabetes Asthma High cholesterol IDDM (insulin dependent diabetes mellitus) Surgical History History of esophagogastroduodenoscopy (EGD) Hx of colonoscopy H/O: hysterectomy H/O tubal ligation Social History Household Members: Family Are you a primary medicare insurance specialist to a significant other at home: No Do you presently have visiting nurse or other home services: No Alcohol intake: never Patient Tobacco Use Status: Current someday Tobacco user Tobacco use type: Smokeless Tobacco Cigarettes Per Day: 1 Second Hand Smoke Exposure: No Results AMB Urinalysis, Automated UA Leukoctes 0 Jamal/uL Last Edit by [employer] on 01/17/25 16:43 UA Nitrite Last Edit by [employer] on 01/17/25 16:43 UA Urobilinogen 0.2 mg/dL Last Edit by [employer] on 01/17/25 16:43 UA Protein 0 mg/dL Last Edit by [employer] on 01/17/25 16:43 UA pH 6.0 Last Edit by [employer] on 01/17/25 16:43 UA Blood 0 Reji/uL Last Edit by [employer] on 01/17/25 16:43 UA Specific [place] 1.015 Last Edit by [employer] on 01/17/25 16:43 UA Ketone Last Edit by [employer] on 01/17/25 16:43 UA Bilirubin 0 mg/dL Last Edit by [employer] on 01/17/25 16:43 UA Glucose 1000 mg/dL Last Edit by [employer] on 01/17/25 16:43 Assessment & Plan Assessment & Plan Orders: Orders Urine Culture Today R35.0 - Frequency of micturition AMB Urinalysis Automated Today Z13.9 - Encounter for screening, unspecified Coding
== END 2025-01-17 16:36 | disposition home or self-care (01) ==
LOC: HO.HUSH 15:42
PROVIDERS: PCP Internal Medicine; Visit Provider Urology
DX: Z13.9 Encounter for screening, unspecified (principal)

== ENCOUNTER 2025-01-17 15:42 | Outpatient (REF) | payer MEDICAID, SELFPAY | END 2025-01-17 15:43 | disposition home or self-care (01) | LOC: HO.LNP 15:42 | PROVIDERS: PCP Internal Medicine; Visit Provider Urology | DX: R35.0 Frequency of micturition (principal); Z13.9 Encounter for screening, unspecified | CPT/HCPCS: 81003; 87086 ==

== ENCOUNTER 2025-02-04 08:52 | Outpatient (REF) | payer MEDICAID, SELFPAY ==
--- NOTE | ~2025-02-04 | US_ITS ---
EXAMINATION: US ABDOMEN COMPLETE CLINICAL INFORMATION: Elevated liver enzymes. Diabetes. Fatty liver.. COMPARISON: Correlated to renal ultrasound dated April 06, [address] abdomen dated January 04, 2023. TECHNIQUE: Real-time ultrasound of the abdomen using grayscale technique. FINDINGS: PANCREAS: No peripancreatic fluid collections. ABDOMINAL AORTA: The proximal, mid, and distal segments are normal in caliber. INFERIOR VENA CAVA: Visualized portions are normal. LIVER: Liver measures 17 cm. Coarse echotexture. No nodular surface. There is a 1.3 cm round hyperechoic abnormality, right hepatic lobe. No intrahepatic biliary ductal dilatation. GALLBLADDER: Gallbladder is fluid-filled. No pericholecystic fluid collection or gallbladder wall thickening. COMMON BILE DUCT: 4 mm. RIGHT KIDNEY: 14 cm. Normal echotexture. Normal renal cortical thickness. No hydronephrosis. No gross solid or cystic lesion detected by the technologist. . LEFT KIDNEY: 13 cm. Normal echotexture. Normal renal cortical thickness. No hydronephrosis. No solid or cystic lesion detected by the technologist.. SPLEEN: 11 cm. No focal lesion.. FREE FLUID: None. US/US abdomen complete IMPRESSION: Hepatomegaly, mild and likely steatosis. Probable 1.3 cm hemangioma, right hepatic lobe. No cholelithiasis. No hydronephrosis. No ascites. Electronically signed by: Cruz Pierson MD 02/04/2025 10:47 AM EDT
--- OUTSIDE RECORDS SUMMARY | 2025-02-04 09:18 | XMS_ITS | Encounter Summary ---
Author Organization [employer] Address [address] [facility] 7t [place] [address] Care Team Providers Care Desktop Analyst Name Role Phone Cheryl Fitzpatrick MD Primary Care Provider + Nick Castellanos Unavailable Unavailable Reason for Visit * Reason Comments Med Refill Encounter Details Date Type Department Care Team (Late st Contact Info) Description 09/13/2024 Refill [facility] MEDICINE [address] [place], [place] [phone] Cheryl Fitzpatrick MD [address] [place], [place] [phone] Anxiety; Migraine with aura and without status [...] Description 03/08/2025 11:45 AM EDT Office Visit [facility] MEDICINE [address] [place] [address] Cheryl Fitzpatrick MD [address] [place] [address] documented as of this encounter Goals Goal Patient Goal Type Associated Problems Recent Progress Patient-Stated? Author Blood Pressure < 140/90 Blood Pressure 128/76(2024 9:59 AM EDT) No Kenzie Tran PharmD Hemoglobin [...] documented as of this encounter Care Teams Desktop Analyst Relationship Specialty Start Date End Date Cheryl Fitzpatrick MD [address] [place] [address] PCP - General Internal Medicine 09/10/22 Nick Castellanos FNP [address] [place] [address] Nurse Practitioner Family Medicine 07/04/23 Apolonia Mars manager of care Credit CoordinatorTown Clerk 11/16/23 documented as of this encounter
== END 2025-02-04 08:53 | disposition home or self-care (01) ==
LOC: HO.US 08:52
PROVIDERS: PCP Internal Medicine; Visit Provider Internal Medicine
DX: R74.8 Abnormal levels of other serum enzymes (principal)
CPT/HCPCS: 76700

== ENCOUNTER → 2025-02-04 08:55 | Outpatient (BNV) | payer MEDICAID, SELFPAY | PROVIDERS: PCP Internal Medicine; Visit Provider Radiology Diagnostic Radiology | DX: K76.0 Fatty (change of) liver, not elsewhere classified (principal); E11.9 Type 2 diabetes mellitus without complications; R74.01 Elevation of levels of liver transaminase levels | CPT/HCPCS: 76700 ==

== ENCOUNTER 2025-03-06 11:58 | Outpatient (REF) | payer MEDICAID, SELFPAY ==
--- NOTE | ~2025-03-06 | MM_ITS ---
EXAMINATION: MM DIAGNOSTIC DIGITAL BREAST TOMOSYNTHESIS, BILATERAL CLINICAL INFORMATION: 1 year follow-up for grouped calcifications in the upper central right breast posterior depth. COMPARISON: Mammography: Comparison is made with relevant prior exams. TECHNIQUE: Digital breast mammography with tomosynthesis is performed in both the craniocaudal and mediolateral oblique views along with computer-aided detection (CAD). FINDINGS: There are scattered areas of fibroglandular density (ACR BI-RADS breast composition Category b). Grouped punctate calcifications in the upper central right breast are not significantly changed from prior magnification views dating back for one year. No suspicious masses or other abnormal findings. Results are provided to the patient at time of visit by the technologist. MM/MM tomosynthesis diagnostic BI IMPRESSION: Grouped calculations in the upper central breast posterior depth are not significantly changed from prior magnification views dating back for one year. Probably benign. Recommend diagnostic mammography in 12 months to demonstrate 2 years of stability. ASSESSMENT: BI-RADS BI-RADS 3 - Probably benign finding(s) - 12 month follow-up suggested RECOMMENDATION: 12 month diagnostic follow up This patient's information was entered into a reminder system with a target due date for their next mammogram. Electronically signed by: Winifred Perez DO 03/06/2025 01:52 PM EDT
--- OUTSIDE RECORDS SUMMARY | 2025-03-06 13:03 | XMS_ITS | Encounter Summary ---
Author Organization [employer] Address [address] [facility] 7t [place] [address] Care Team Providers Care Sand Cleaning Machine Operator Name Role Phone Cheryl Fitzpatrick MD Primary Care Provider + Nick Castellanos Unavailable Unavailable Reason for Visit * Reason Comments Med Refill Encounter Details Date Type Department Care Team (Late st Contact Info) Description 09/13/2024 Refill [facility] MEDICINE [address] [place], [place] [phone] Cheryl Fitzpatrick MD [address] [place], [place] [phone] Anxiety; Migraine with aura and without status [...] with others, in a hotel, in a prison, living outside on the street, on a [...] Care Team (Late st Contact Info) Description 06/27/2025 9:00 AM EST Office Visit [facility] OPTOMETRY [address] [place] [address] Salena Garcia, ELLIS [address] [place] [address] documented as of this encounter Goals Goal Patient Goal Type Associated Problems Recent Progress Patient-Stated? Author Blood Pressure < 140/90 Blood Pressure 120/80(2024 11:30 AM EDT) No Kenzie Tran PharmD Hemoglobin A1c < 7 Result Component 8.2(07/03/202 5 10:41 AM EDT) No Kenzie Tran, Merari documented as of this encounter Visit Diagnoses Diagnosis Anxiety Anxiety state, unspecified Migraine with aura and without status migrainosus, not intractable documented in this encounter Additional Health Concerns Assessment Noted Time PHQ-9 Depression Total Score: 10 024 10:01 AM EDT documented as of this encounter Care Teams Sand Cleaning Machine Operator Relationship Specialty Start Date End Date Cheryl Fitzpatrick MD [address] [place] [address] PCP - General Internal Medicine 09/10/22 Nick Castellanos FNP [address] [place] [address] Nurse Practitioner Family Medicine 07/04/23 Apolonia Mars resident care manager Hematology NursePool Attendant 11/16/23 documented as of this encounter
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
== END 2025-03-06 11:59 | disposition home or self-care (01) ==
LOC: HO.MAMMO 11:58
PROVIDERS: PCP Internal Medicine; Visit Provider Internal Medicine
DX: R92.1 Mammographic calcification found on diagnostic imaging of breast (principal)
CPT/HCPCS: 77062; 77066

== ENCOUNTER → 2025-03-06 12:00 | Outpatient (BNV) | payer MEDICAID, SELFPAY | PROVIDERS: PCP Internal Medicine; Visit Provider Internal Medicine | DX: R92.1 Mammographic calcification found on diagnostic imaging of breast (principal) | CPT/HCPCS: 77062; 77066 ==

== ENCOUNTER 2025-04-16 10:36 | Emergency (ER) | payer MEDICAID, SELFPAY ==
--- NOTE | ~2025-04-16 | XR_ITS ---
Exam: 2 view bilateral shoulders. INDICATION: Shoulder pain Prior: June 29 2023 TECHNIQUE: AP and Y view bilateral shoulders FINDINGS: Right shoulder: Small focal calcific density projects over the right greater tuberosity. Small marginal osteophytes are present in the inferior glenohumeral joint. AC joint is intact. There is no dislocation. Left shoulder: Glenohumeral joint is intact without degeneration. AC joint is intact. There is no dislocation. XR/XR Shoulder Mirza min 2V Impression: Right shoulder Possible focal area of calcific tendinitis involving rotator cuff. Mild degenerative changes. Left shoulder: Unremarkable. Electronically signed by: Piotr Rose MD 04/16/2025 02:40 PM EDT
[2025-04-16 11:25] VITALS: BP 127/58; PULSE 88; RESP 18; TEMP 36.8; O2SAT 96; BMI 31.5
[2025-04-16 11:25] LABS: COVID-19 Test Negative (Negative); IDNOW Serial# 58CA691E; IDNOW Serial# 6674DD1D; Strep A Nucleic Acid Negative (Negative)
--- NOTE | 2025-04-16 11:26 | ECG_ITS ---
Test Reason : DIZZY Blood Pressure : */* mmHG Vent. Rate : 85 BPM Atrial Rate : 85 BPM P-R Int : 204 ms QRS Dur : 120 ms QT Int : 398 ms P-R-T Axes : 48 101 36 degrees QTcB Int : 473 ms Normal sinus rhythm Rightward axis Possible Anterior infarct , age undetermined Abnormal ECG When compared with ECG of 25-Dec-2022 13:58, QRS axis Shifted right Borderline criteria for Anterior infarct are now Present Referred By: Heber Batres Electronically Signed By: JASON MEEKS
--- NOTE | 2025-04-16 11:30 | ED.GENADULT ---
HPI - General Adult General Chief complaint: General Medical Stated complaint: Body aches Time Seen by Provider: 04/16/25 13:21 Source: patient and RN notes reviewed Mode of arrival: ambulatory Limitations: no limitations History of Present Illness ED Provider: Ernestina Mackey PA-C HPI narrative: This is a 49-year-old female who presents emergency department with complaints of bilateral shoulder pain ongoing for the last several months. Pain has been constant, worsens with movement. History of arthritis, no new injury or trauma. No chest pain or shortness of breath. No fevers or chills. She states that she has had some difficulty with washing her hair due to the pain in her BL shoulders. Denies taking any medications at home to treat her pain. No abdominal pain, nausea, vomiting or diarrhea. No other complaints or concerns at this time. MD complaint: Bilateral shoulder pain Onset (ago): month(s) Relieving factors: none Exacerbating factors: movement Associated symptoms: denies other symptoms Treatments prior to arrival: none Related Data Home Medications ?Medication ?Instructions ?Recorded ?Confirmed clonazepam 2 mg tablet 2 mg PO TID 02/16/23 04/18/25 losartan 50 mg-hydrochlorothiazide 1 tab PO DAILY 02/16/23 04/18/25 12.5 mg tablet topiramate 50 mg tablet 50 mg PO BID 07/27/23 04/18/25 insulin lispro protamine-lispro 12 unit subcut TID 08/12/23 04/18/25 100 unit/mL (50-50) subcutaneous susp (Humalog Mix 50-50 Insuln U-100) empagliflozin 25 mg tablet 25 mg PO QAM 11/29/23 04/18/25 (Jardiance) insulin degludec 100 unit/mL (3 72 unit subcut QPM 11/29/23 04/18/25 mL) subcutaneous pen (Tresiba FlexTouch U-100 insulin) oxycodone-acetaminophen 5 mg-325 1 tab PO Q6H PRN severe pain 11/29/23 04/18/25 mg tablet Previous Rx's ?Medication ?Instructions ?Recorded amitriptyline 75 mg tablet 75 mg PO DAILY #30 tabs 08/12/20 bupropion HCl 300 mg 24 hr tablet, 300 mg PO QAM #30 tabs 08/12/20 extended release gabapentin 800 mg tablet 800 mg PO TID #30 tabs 08/12/20 quetiapine 200 mg tablet 200 mg PO DAILY #30 tabs 08/12/20 trazodone 150 mg tablet 150 mg PO BEDTIME #30 tabs 08/12/20 cyclobenzaprine 10 mg tablet 10 mg PO TID PRN muscle spasm #10 05/01/24 tabs lidocaine 5 % topical patch 1 patch topical DAILY #15 ea 05/01/24 doxycycline hyclate 100 mg capsule 100 mg PO BID 5 days #10 caps 05/22/24 pantoprazole 40 mg tablet,delayed 40 mg PO QAM #30 tabs 08/20/24 release acetaminophen 500 mg tablet 1,000 mg (2 x 500 mg) PO Q8H PRN 04/16/25 (Tylenol Extra Strength) pain #30 tabs ibuprofen 600 mg tablet 600 mg PO Q6H PRN pain #30 tabs 04/16/25 cephalexin 500 mg capsule 500 mg PO QID 7 days #28 caps 04/18/25 nystatin 100,000 unit/gram topical 1 appl topical BID 14 days #30 04/18/25 powder grams Allergies Allergy/AdvReac Type Severity Reaction Status Date / Time dulaglutide (From [facility]) Allergy Unknown Verified 04/18/25 16:15 Sulfa (Sulfonamide Allergy Unknown Verified 04/18/25 16:15 Antibiotics) Review of Systems Review of Systems: Yes all other systems are reviewed and are negative Constitutional: Constitutional: Reports as per [facility] Past Medical History Medical History Upper extremity weakness Myositis Chest pain Diabetes Asthma High cholesterol IDDM (insulin dependent diabetes mellitus) Surgical History History of esophagogastroduodenoscopy (EGD) Hx of colonoscopy H/O: hysterectomy H/O tubal ligation Social History Social History Household Members: Family Are you a primary rn patient care to a significant other at home: No Do you presently have visiting nurse or other home services: No Alcohol intake: never Patient Tobacco Use Status: Current someday Tobacco user Tobacco use type: Smokeless Tobacco Cigarettes Per Day: 1 Second Hand Smoke Exposure: No Physical Exam ED Vital Signs: Vital Signs - 24 hr 04/16/25 13:35 04/16/25 16:02 04/16/25 16:11 Temperature 98.3 F 98.3 F 98.3 F Pulse Rate 88 84 84 Respiratory Rate 18 16 16 Blood Pressure 127/58 L 134/74 134/74 Pulse Oximetry 96 96 96 Oxygen Delivery Method Room Air Room Air Room Air BMI result Body Mass Index 31.5 Const General: cooperative, comfortable and no acute distress Orientation/consciousness: patient oriented x3 Limitations: no limitations HENMT Head: Yes normal to inspection, Yes normocephalic and Yes atraumatic Ears: hearing grossly normal bilaterally General nose exam: Normal external nose present Face and sinus: Yes normal facial exam Mouth: Normal oral and palatal mucosa present, oropharynx normal and moist mucous membranes Throat: Yes posterior oropharynx normal Eyes General: appearance normal, both eyes and all related structures Eyelids: Yes eyelids normal Conjunctivae: conjunctivae normal Sclerae: sclerae normal Pupils: Equal, round and reactive pupils present EOM: EOMs intact bilaterally Neck Neck: Yes normal visual inspection, Yes full ROM and Yes no lymphadenopathy Lymphatic: no lymphadenopathy noted Chest Chest palpation & inspection: normal inspection of the chest Resp Effort & Inspection: normal respiratory effort and able to speak in complete sentences Auscultation: clear to auscultation bilaterally, no crackles, no rales, no rhonchi and no wheezes Cardio Rate: regular rate Rhythm: regular rhythm Heart sounds: S1 normal heart sound present and S2 normal heart sound present GI Inspection: Yes normal to inspection Skin General skin exam: no rashes or lesions noted Trauma: no lacerations or abrasions Wounds: no wounds Neuro General: patient oriented x3 and moves all extremities Cranial nerves: Yes Equal, round and reactive pupils present Extrem Other: BL shoulders with no obvious bony deformities or swelling, no overlying erythema. Diffuse tenderness throughout the shoulder joints bilaterally. Difficulty with abduction. Strong radial pulses. good rn endoscopy strength General: Yes normal to inspection Right upper extremity: normal to inspection Left upper extremity: normal to inspection Right lower extremity: normal to inspection Left lower extremity: normal to inspection Course Course Course Narrative: RME; 49 yold female with pmh of fibromyalgia and diabetes presents to the ED for 3 months of generalized body pain in all her joints pain on bending down and moving extremities worse on right side without any trauma. Patient denies any slurred speech, facial droop, weakness or paralysis of extremities. Patient has secondary complaint is dizziness described as lightheadedness also for the past couple of months. NIH score is 0. labs, EKG ordered. Medications Administered Discontinued Medications Generic Name Dose Route Start Last Admin Trade Name Goran PRN Reason Stop Dose Admin Ketorolac Tromethamine 30 mg 04/16/25 11:30 04/16/25 13:34 Ketorolac Tromethamine 30 Mg/Ml Vial IM 04/16/25 11:31 30 mg ONCE ONE Administration Medical Decision Making Medical Decision Making [facility] Narrative: This is a [id number]-female who presents to the ER with complaints of chronic bilateral shoulder pain. On my assessment, pt is alert, in no acute distress. Vital signs wnl. She has diffuse tenderness throughout the shoulder joints bilaterally with decreased ROM. Labs, EKG were ordered prior to my evaluation which were nondiagnostic. Xrays ordered and revealed Right shoulder Possible focal area of calcific tendinitis involving rotator cuff.Mild degenerative changes. Left shoulder: Unremarkable. She has no dizziness, headache, chest pain, shortness of breath, only reporting bilateral shoulder pain which has been constant for several months, worsening with movement - consistent with MSK type pain. Discussed overall workup with pt. Discussed that patient needs to f/u with orthopedics. Given return precautions. Pt did have mild relief with toradol, with better mobility of shoulders. Pt understands and agrees with plan, eager for d.c. Stable for d.c. Differential Diagnosis Differential Diagnoses: The differential diagnosis associated with the presentation includes arthritis, tendonitis, sprain, strain, dislocation Lab Data [facility] Lab Attestation statement: I reviewed the patient's lab results. 04/16/25 11:46 04/16/25 11:46 Labs: Lab Results 04/16/25 04/16/25 04/16/25 Range/Units 10:48 11:46 11:54 WBC 6.2 (4.8-10.8) X10*3/uL RBC 4.71 (4.20-5.50) X10*6/uL Hgb 13.8 (12.0-16.0) g/dl Hct 40.9 (37.0-47.0) % MCV 86.8 (80.0-98.0) fL MCH 29.3 (27.0-33.0) pg MCHC 33.7 (31.0-35.0) g/dl RDW 14.4 (11.0-16.0) % Plt Count 288 (160-400) X10*3/uL MPV 10.2 (9.4-12.3) fL Immature Gran % (Auto) 0.2 (0.0-0.4) % Neut % (Auto) 55.0 (45-73) % Lymph % (Auto) 34.7 (20-40) % Crockett % (Auto) 6.5 (2-11) % Eos % (Auto) 2.8 (0-4) % Baso % (Auto) 0.8 (0-2) % Lymph # (Auto) 2.1 (1.2-4.9) X10*3/uL [place]ett # (Auto) 0.4 (0.1-1.2) X10*3/uL Eos # (Auto) 0.2 (0.0-0.4) X10*3/uL Baso # (Auto) 0.1 (0.0-0.2) X10*3/uL Abs Immat Gran (auto) 0.01 (0.00-0.03) X10*3/uL Absolute Neuts (auto) 3.4 (2.0-8.3) x10*3/uL Absolute Nucleated RBC 0.000 (0.0-0.012) X10*3/uL Nucleated RBC % (auto) 0.0 (0.0-0.2) /100WBC Sodium 138 (135-145) mmol/L Potassium 3.7 (3.3-5.1) mmol/L Chloride 108 (96-108) mmol/L Carbon Dioxide 22 (22-29) mmol/L Anion Gap 12 (12-20) BUN 13 (9-16) mg/dL Creatinine 0.55 (0.5-1.4) mg/dL Estim Creat Clear Calc 138.6 Estimated GFR > 60 Random Glucose 152 H (60-115) mg/dL Calcium 9.2 (8.4-10.2) mg/dL Magnesium 2.1 (1.6-2.6) mg/dL Total Bilirubin 0.2 (0.0-1.0) mg/dL AST 33 H (5-31) U/L ALT 51 H (0-31) U/L Alkaline Phosphatase 84 (39-117) U/L Total Creatine Kinase 393 H (26-140) U/L Troponin I High Sens < 2.7 (<3.5-17.0) ng/L Total Protein 7.2 (6.5-8.0) g/dL Albumin 4.6 (3.5-5.0) g/dL Beta HCG, Quant < 2 mIU/mL Urine Color Yellow Urine Appearance Clear Urine pH 5.5 (5.0-9.0) Ur Specific [place] >= 1.030 H (1.005-1.025) Urine Protein Negative (Neg-Trace) mg/dL Urine Glucose (UA) >=1000 H (Negative) mg/dL Urine Ketones Trace (Negative) mg/dL Urine Blood Negative (Negative) Urine Nitrite Negative (Negative) Ur Leukocyte Esterase Negative (Negative) Urine RBC 0-2 (0-2) /HPF Urine WBC 6-10 H (0-5) /HPF Ur Squamous Epith Cells 0-2 (0-2) /HPF Urine Bacteria None Seen (None Seen) Hyaline Casts 3-5 (0-2) /LPF COVID-19 (FAYE) Negative (Negative) COVID-19 Clin Com See Note Influenza Type A (ETIENNE) Negative (Negative) Influenza Type B (ETIENNE) Negative (Negative) Influenza A & B Note See Note S. pyogenes GrpA ETIENNE Negative (Negative) Independent Interpretation I performed an independent interpretation of an: EKG Interpretation: EKG NSR at a ventricular rate of 85bpm, PRR interval 204, QT/QTC 398/473, no STEMI Radiology Impression Discussion of test interpretation with radiology: I have reviewed the radiologist's reading. Radiologist Impression: Right shoulder Possible focal area of calcific tendinitis involving rotator cuff. Mild degenerative changes. Left shoulder: Unremarkable. Discharge Plan Discharge Clinical Impression: Chronic shoulder pain Patient Disposition: Home, Self-Care Instructions: Pain Management (ED), Shoulder Pain (ED), Warm Compress or Soak (ED) Additional Instructions: Were seen in the emergency department due to shoulder pain. Your x-rays are concerning for arthritis, you also have some evidence of calcific tendinitis of the rotator cuff. Please alternate between ibuprofen and or Tylenol as needed for pain and symptoms. Moist heat such as the hot packs that you put in the microwave can be very beneficial to your shoulder pain. Please follow up with orthopedics. Call today to make an appointment. If any new or worsening symptoms occur including but not limited to worsening pain, severe chest pain, shortness of breath, please seek emergent care. Prescriptions: New ibuprofen 600 mg tablet 600 mg PO Q6H PRN (Reason: pain) Qty: 30 0RF acetaminophen [Tylenol Extra Strength] 500 mg tablet 1,000 mg PO Q8H PRN (Reason: pain) Qty: 30 0RF No Action pantoprazole 40 mg tablet,delayed release (DR/EC) 40 mg PO QAM Qty: 30 3RF trazodone 150 mg tablet 150 mg PO BEDTIME Qty: 30 0RF bupropion HCl 300 mg tablet extended release 24 hr 300 mg PO QAM Qty: 30 0RF quetiapine 200 mg tablet 200 mg PO DAILY Qty: 30 0RF amitriptyline 75 mg tablet 75 mg PO DAILY Qty: 30 0RF gabapentin 800 mg tablet 800 mg PO TID Qty: 30 0RF Humalog Mix 50-50 Insuln U-100 100 unit/mL (50-50) suspension 12 unit subcut TID cyclobenzaprine 10 mg tablet 10 mg PO TID PRN (Reason: muscle spasm) Qty: 10 0RF lidocaine 5 % adhesive patch,medicated 1 patch topical DAILY Qty: 15 0RF Rx Instructions: leave on most painful area for up to 12 hrs doxycycline hyclate 100 mg capsule 100 mg PO BID 5 Days Qty: 10 0RF nystatin 100,000 unit/gram powder 1 appl topical BID 14 Days Qty: 30 0RF cephalexin 500 mg capsule 500 mg PO QID 7 Days Qty: 28 0RF losartan-hydrochlorothiazide 50-12.5 mg tablet 1 tab PO DAILY clonazepam 2 mg tablet 2 mg PO TID topiramate 50 mg tablet 50 mg PO BID insulin degludec [Tresiba FlexTouch U-100] 100 unit/mL (3 mL) insulin pen 72 unit subcut QPM oxycodone-acetaminophen 5-325 mg tablet 1 tab PO Q6H PRN (Reason: severe pain) Jardiance 25 mg tablet 25 mg PO QAM Referrals: [facility] Surgeons [Provider Group] Interventions: ED Discharge Assessment Last Done: 04/16/25 16:11 Discharge Date/Time: 04/16/25 16:12 Print Language: Sudanese
[2025-04-16 11:33] LABS: IDNOW Serial# 55D5AD1C; Influenza B2 Negative (Negative)
[2025-04-16 11:52] LABS: MANUAL DIFF FLAG NO
[2025-04-16 11:56] LABS: Hematocrit 40.9 % (37.0-47.0); Hemoglobin 13.8 g/dl (12.0-16.0); Imm Gran Abs Auto 0.01 X10*3/uL (0.00-0.03); Imm Gran Pct Auto 0.2 % (0.0-0.4); Lymphocytes Absolute Auto 2.1 X10*3/uL (1.2-4.9); Mean Corpuscular HGB Conc 33.7 g/dl (31.0-35.0); Mean Corpuscular Hemoglobin 29.3 pg (27.0-33.0); Mean Corpuscular Volume 86.8 fL (80.0-98.0); NRBC Abs Auto 0.000 X10*3/uL (0.0-0.012); NRBC Pct Auto 0.0 /100WBC (0.0-0.2); Platelet Count 288 X10*3/uL (160-400); Red Blood Count 4.71 X10*6/uL (4.20-5.50); White Blood Count 6.2 X10*3/uL (4.8-10.8)
[2025-04-16 12:08] LABS: Alanine Aminotransferase 51 U/L (0-31); Albumin Level 4.6 g/dL (3.5-5.0); Alkaline Phosphatase 84 U/L (39-117); Anion Gap 12 (12-20); Aspartate Amino Transferase 33 U/L (5-31); Blood Urea Nitrogen 13 mg/dL (9-16); Calcium 9.2 mg/dL (8.4-10.2); Carbon Dioxide 22 mmol/L (22-29); Chloride 108 mmol/L (96-108); Creatinine Clr Calc Pharmacy 138.6; Estimated Glomerular Filt Rate > 60; Magnesium 2.1 mg/dL (1.6-2.6); Potassium 3.7 mmol/L (3.3-5.1); Sodium 138 mmol/L (135-145); Total Protein 7.2 g/dL (6.5-8.0)
[2025-04-16 12:16] LABS: Troponin-I High Sensitivity < 2.7 ng/L (<3.5-17.0)
[2025-04-16 12:20] LABS: Appearance Urine Clear; Glucose Urine UA >=1000 mg/dL (Negative); PH 5.5 (5.0-9.0); Specific Gravity - Urine >= 1.030 (1.005-1.025); UMIC TRIGGER UACC YES
[2025-04-16 12:23] LABS: UACC Culture Trigger YES
[2025-04-16 13:35] VITALS: BP 127/58; PULSE 88; RESP 18; TEMP 36.8; O2SAT 96
--- NOTE | 2025-04-16 13:37 | PC.NURSE ---
Patient presents to ED c/o arm and upper body pain rated 10/10 radiates through the upper body into her neck. Deneis injury, SOB PMH fibromylagia DM EKG NSR Patient medicated with toradol, effectiveness pending Plan of care on going
--- OUTSIDE RECORDS SUMMARY | 2025-04-16 13:54 | XMS_ITS | Encounter Summary ---
Author Organization [email or web address] Address [address] [place] [address] [address] [place] [address] Care Team Providers Care Broadcast Program Director Name Role Phone Cheryl Fitzpatrick MD Primary Care Provider + Nick Castellanos Unavailable Unavailable Reason for Visit * Reason Comments Med Refill Encounter Details Date Type Department Care Team (Late st Contact Info) Description 09/13/2024 Refill [facility] [address] [place], [place] [phone] Cheryl Fitzpatrick MD [address] [place], [place] [phone] Anxiety; Migraine with aura and without status [...] Description 06/27/2025 9:00 AM EST Office Visit [facility] [address] [place] [address] Salena Garcia, ELLIS [address] [place] [address] documented as of this encounter Goals Goal Patient Goal Type Associated Problems Recent Progress Patient-Stated? Author Blood Pressure < 140/90 Blood Pressure 110/70(2024 9:50 AM EDT) No Kenzie Tran, Merari Hemoglobin A1c < 7 Result Component 8.2( 10:41 AM EDT) No Kenzie Tran, PharmD documented as of this encounter Visit Diagnoses Diagnosis Anxiety Anxiety state, unspecified Migraine with aura and without status migrainosus, not intractable documented in this encounter Additional Health Concerns Assessment Noted Time PHQ-9 Depression Total Score: 10 024 10:01 AM EDT documented as of this encounter Care Teams Broadcast Program Director Relationship Specialty Start Date End Date Cheryl Fitzpatrick MD [address] [place] [address] PCP - General Internal Medicine 09/10/22 Nick Castellanos FNP [address] [place] [address] Nurse Practitioner Family Medicine 07/04/23 Apolonia Mars manager care management Prosthetic Makeup DesignerProposal Rep 11/16/23 documented as of this encounter
--- OUTSIDE RECORDS SUMMARY | 2025-04-16 13:54 | XMS_ITS | Encounter Summary ---
Author Organization [employer] Address [address] [place] [address] [address] [place] [address] Care Team Providers Care Software Writer Name Role Phone Cheryl Fitzpatrick MD Primary Care Provider + Nick Castellanos Unavailable Unavailable Encounter Details Date Type Department Care Team (Late st Contact Info) Description 09/11/2024 Telephone [facility] [address] [place], [place] [phone] Cheryl Fitzpatrick MD [address] [place], [place] [phone] Social History Tobacco Use Types Packs/Day Years [...] Description 06/27/2025 9:00 AM EST Office Visit [facility] OPTOMETRY [address] [place] [address] Salena Garcia, ELLIS [address] [place] [address] documented as of this encounter Goals Goal Patient Goal Type Associated Problems Recent Progress Patient-Stated? Author Blood Pressure < 140/90 Blood Pressure 110/70(2024 9:50 AM EDT) No YongsKenzie Pineda, PharmD Hemoglobin A1c < 7 Result Component 8.2( 10:41 AM EDT) No YongsKenzie Pineda, PharmD documented as of this encounter Visit Diagnoses Not on filedocumented in this encounter Additional Health Concerns Assessment Noted Time PHQ-9 Depression Total Score: 10 024 10:01 AM EDT documented as of this encounter Care Teams Software Writer Relationship Specialty Start Date End Date Cheryl Fitzpatrick MD [address] [place] [address] PCP - General Internal Medicine 09/10/22 Nick Castellanos FNP [address] [place] [address] Nurse Practitioner Family Medicine 07/04/23 Apolonia Mars childcare provider [employer] 11/16/23 documented as of this encounter
--- OUTSIDE RECORDS SUMMARY | 2025-04-16 13:55 | XMS_ITS | Encounter Summary ---
Author Organization [employer] Address [address] [place] [address] [address] [place] [address] Care Team Providers Care Career Portals Teacher Name Role Phone Cheryl Fitzpatrick MD Primary Care Provider + Nick Castellanos Unavailable Unavailable Encounter Details Date Type Department Care Team (Late st Contact Info) Description 02/12/2025 Results Follow-Up [facility] [address] [place], [place] [phone] Cheryl Fitzpatrick MD [address] [place] [address] [facility] Complete Social History Tobacco Use Types Packs/Day Years Used Date Smoking Tobacco: Former Cigarettes Q uit: 12/20/2022 Passive Smoke Exposure: Current Smokeless Tobacco: Never Comments:Pt is vaping Alcohol Use Standard Drinks/Week Comments Never 0 (1 standard drink = 0.6 oz pur e alcohol) Depression Answer Date Recorded Patient Health Questionnaire-9 Score 12 02/21/2025 Patient Health Questionnaire-9 Score 12 02/21/2025 Last PHQ-9: Questionnaire Data Not on file 0 02/21/2025 Housing Stability Answer Date Recorded What is [...] Date Recorded Patient Health Questionnaire-2 Score 4 02/21/2025 Internet Access Answer Date Recorded Internet Access Q1 Yes 07/18/2024 Internet Access Q2 Not on file 07/18/2024 Comments No Sex and Gender Information Value Date Recorded Sex Assigned at Female 06/21/2022 10:37 AM EDT Legal Sex Female 10:37 AM EDT Gender Identity Female 06/21/2022 10:37 AM EDT Sexual Orientation Straight 06/21/2022 10 :37 AM EDT documented as of this encounter Functional Status * Over the past 2 weeks, how often have you been bothered by any of the following problems? Question Answer Date of Assessment Author Patient Health Questionnaire-2 Score 4 10/2024 10:40 AM EDT Chris Epstein MA * Little interest or pleasure in doing things Answer Date of Assessment Author Several days 02/21/2025 10:40 AM EDT Randi Epstein MA * Feeling down, depressed, or hopeless Answer Date of Assessment Author Nearly every day 02/21/2025 10:40 AM EDT Estefany Epstein MA * Trouble falling or staying asleep, or sleeping too much Answer Date of Assessment Author Several days 02/21/2025 10:40 AM EDT Randi Epstein MA * Feeling tired or having little energy Answer Date of Assessment Author Several days 02/21/2025 10:40 AM EDT Randi Epstein MA * Poor appetite or overeating Answer Date of Assessment Author Several days 02/21/2025 10:40 AM EDT Randi Epstein MA * Feeling bad about yourself - or that you are a failure or have let yourself or your family down Answer Date of Assessment Author Several days 02/21/2025 10:40 AM EDT Randi Epstein MA * Trouble concentrating on things, such as reading the newspaper or watching television Answer Date of Assessment Author Nearly every day 02/21/2025 10:40 AM EDT Estefany Epstein MA * Moving or speaking so slowly that other people could have noticed? Or the opposite - being so fidgety or restless that you have been moving around a lot more than usual. Answer Date of Assessment Author Several days 02/21/2025 10:40 AM SRINIVAST Randi Epstein MA * Thoughts that you would be better off or hurting yourself in some way Answer Date of Assessment Author Not at all 02/21/2025 10:40 AM EDT Randi Epstein MA * Patient Health Questionnaire-9 Score Answer Date of Assessment Author 12 02/21/2025 10:40 AM EDT Randi Epstein MA * How difficult have these problems made it for you to do your work, take care of things at home, or get along with other people? Answer Date of Assessment Author Very difficult 02/21/2025 10:40 AM EDT Randi Epstein MA * Over the last 2 weeks, how often have you been bothered by any of the following problems? Question Answer Date of Assessment Author Feeling nervous, anxious, or on edge 3 10/2024 10:40 AM EDT Chris Epstein MA Not being able to stop or co ntrol worrying 3 02/21/2025 10:40 AM SRINIVAST Chris Epstein M A Worrying too much about diff erent things 3 02/21/2025 10:40 AM Chris [place] M A Trouble relaxing 3 02/21/2025 10:40 AM SRINIVAST Chris Epstein MA Being so restless that it is hard to sit still 3 02/21/2025 10:40 AM EDT Chris Epstein M A Becoming easily annoyed or irritable 1 10/2024 10:40 AM EDT Chris Epstein MA Feeling afraid as if somethi ng awful might happen 1 02/21/2025 10:40 AM EDT Chris Epstein M Enio CHRISSIE-7 Total Score 17 02/21/2025 10:40 AM EDT Chris Epstein MA documented as of this encounter Miscellaneous Notes * Result Encounter Note - Cheryl Fitzpatrick MD - 02/12/2025 4:21 PM EDT Abdominal ultrasound on 02/04/2025 showed hepatomegaly likely consistent with steatosis and a? Righthepatic lobe hemangioma, otherwise within normal limits. All this changes are probably the culprit of high LFTs, she is seen by GI, no need to change POC at this time other than tight control of diabetes and weight loss, I will follow-up with her at next month's appointment with me documented in this encounter Plan of Treatment Upcoming Encounters Date Type Department Care Team (Late st Contact Info) Description 06/27/2025 9:00 AM EST Office Visit [facility] OPTOMETRY [address] [place] [address] Salena Garcia OD [address] [place] [address] documented as of this encounter Goals Goal Patient Goal Type Associated Problems Recent Progress Patient-Stated? Author Blood Pressure < 140/90 Blood Pressure 110/70(2024 9:50 AM EDT) No Piers-Gambl e, Kenzie, PharmD Hemoglobin A1c < 7 Result Component 8.2( 10:41 AM EDT) No Piers-Gambl e, Kenzie, PharmD documented as of this encounter Visit Diagnoses Not on filedocumented in this encounter Additional Health Concerns Assessment Noted Time PHQ-9 Depression Total Score: 10 024 10:01 AM EDT documented as of this encounter Care Teams Career Portals Teacher Relationship Specialty Start Date End Date Cheryl Fitzpatrick MD [address] [place] [address] PCP - General Internal Medicine 09/10/22 Nick Castellanos FNP [address] [place] [address] Nurse Practitioner Family Medicine 07/04/23 Apolonia Mars intensive care unit registered nurse Plaster And Stucc[employer] WorkerAssociate Scientist 11/16/23 documented as of this encounter
--- OUTSIDE RECORDS SUMMARY | 2025-04-16 13:55 | XMS_ITS | Encounter Summary ---
Author Organization [employer] Address [address] [place] [address] 7t [place] [address] Care Team Providers Care Plant Protection Superintendent Name Role Phone Cheryl Fitzpatrick MD Primary Care Provider + Nick Castellanos Unavailable Unavailable Reason for Visit * Reason Comments Med Refill Encounter Details Date Type Department Care Team (Late st Contact Info) Description 11/10/2023 Refill [facility] MEDICINE [address] [place], [place] [phone] Nick Castellanos FNP Type 2 diabetes mellitus with hyperglycemia, with long-term current use of insulin ([facility]) Social History Tobacco Use Types Packs/Day Years [...] Description 06/27/2025 9:00 AM EST Office Visit [facility] OPT[facility] [address] [place] [address] Salena Garcia, ELLIS [address] [place] [address] documented as of this encounter Goals Goal Patient Goal Type Associated Problems Recent Progress Patient-Stated? Author Blood Pressure < 140/90 Blood Pressure 110/70(2024 9:50 AM EDT) No Kenzie Tran, PharmD Hemoglobin A1c < 7 Result Component 8.2( 10:41 AM EDT) No Kenzie Tran PharmD documented as of this encounter Visit Diagnoses Diagnosis Type 2 diabetes mellitus with hyperglycemia, with long-term current use of insulin ([facility]) documented in this encounter Additional Health Concerns Assessment Noted Time PHQ-9 Depression Total Score: 11 024 9:34 AM EST documented as of this encounter Care Teams Plant Protection Superintendent Relationship Specialty Start Date End Date Cheryl Fitzpatrick MD [address] [place] [address] PCP - General Internal Medicine 09/10/22 Nick Castellanos FNP [address] [place] [address] Nurse Practitioner Family Medicine 07/04/23 [address] Shay Proposal Consultant 11/11/23 02/10/24 Apolonia Mars health careers instructor Proposal ConsultantBiofuels Plant Superintendent 11/16/23 documented as of this encounter
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
--- OUTSIDE RECORDS SUMMARY | 2025-04-16 13:55 | XMS_ITS | Encounter Summary ---
Author Organization [employer] Address [address] [place] [address] 7t [place] [address] Care Team Providers Care Curriculum Advisory Teacher Name Role Phone Cheryl Fitzpatrick MD Primary Care Provider + Nick Castellanos Unavailable Unavailable Reason for Visit * Reason Onset Date Comments PT1 11/19/2024 Encounter Details Date Type Department Care Team (Late st Contact Info) Description 11/19/2024 Telephone [facility] MEDICINE [address] [place], [place] [phone] Cheryl Fitzpatrick MD [address] [place], [place] [phone] PT1 Social History Tobacco Use Types Packs/Day [...] with others, in a hotel, in a usp, living outside on the street, on a [...] Miscellaneous Notes * Telephone Encounter - Margo Riosginna Causey - 11/19/2024 9:24 AM EDT 1 of 4 Patient calling requesting PT1 Home Address verified: Y/N: Yes Provider name or facility name: [address] [place] [address]. [facility] Escort needed: Y/N: No Do you have a wheelchair: Y/N: No Cane If yes- Manual or electric: N/A Visits: (5x monthly) 2 of 4 Patient calling requesting PT1 Home Address verified: Y/N: Yes Provider name or facility name: [address] [place] [address] - [facility] Escort needed: Y/N: No Do you have a wheelchair: Y/N: No Cane If yes- Manual or electric: N/A Visits: (2x monthly) 3 of 4 Patient calling requesting PT1 Home Address verified: Y/N: Yes Provider name or facility name: [address] [place] [address] - [facility] Escort needed: Y/N: No Do you have a wheelchair: Y/N: No Cane If yes- Manual or electric: N/A Visits: (2x monthly) 4 of 4 Patient calling requesting PT1 Home Address verified: Y/N: Yes Provider name or facility name: [address] [place] [address] [place] [address] [facility] Escort needed: Y/N: No Do you have a wheelchair: Y/N: No Cane If yes- Manual or electric: N/A Visits: (7x monthly) documented in this encounter Plan of Treatment Upcoming Encounters Date Type Department Care Team (Late st Contact Info) Description 06/27/2025 9:00 AM EST Office Visit [facility] OPTOMETRY [address] [place] [address] Salena Garcia OD [address] [place] [address] documented as of this encounter Goals Goal [...] documented as of this encounter Care Teams Curriculum Advisory Teacher Relationship Specialty Start Date End Date Cheryl Fitzpatrick MD [address] [place] [address] PCP - General Internal Medicine 09/10/22 Nick Castellanos FNP [address] [place] [address] Nurse Practitioner Family Medicine 07/04/23 Apolonia Mars medicare nurse Marketing Program CoordinatorEngine Wiper 11/16/23 documented as of this encounter
--- OUTSIDE RECORDS SUMMARY | 2025-04-16 13:55 | XMS_ITS | Encounter Summary ---
Author Organization [email or web address] Address [address] [place] [address] 7t [place] [address] Care Team Providers Care Speech Therapist Technician Name Role Phone Cheryl Fitzpatrick MD Primary Care Provider + Nick Castellanos Unavailable Unavailable Reason for Visit * Reason Onset Date Comments PT-1 10/22/2024 Encounter Details Date Type Department Care Team (Late st Contact Info) Description 10/22/2024 Telephone [facility] MEDICINE [address] [place], [place] [phone] Cheryl Fitzpatrick MD [address] [place], [place] [phone] PT-1 (/) Social History Tobacco Use Types Packs/Day Years Used Date Smoking Tobacco: Former Cigarettes Q uit: 12/20/2022 Passive Smoke Exposure: Current Smokeless Tobacco: Never Comments:Pt is vaping Alcohol Use Standard Drinks/Week Comments Never 0 (1 standard drink = 0.6 oz pur e alcohol) Depression Answer Date Recorded Patient Health Questionnaire-9 Score 01/31/2024 Patient Health Questionnaire-9 Score 10 01/31/2024 Last PHQ-9: Questionnaire Data Not on file 0 01/31/2024 Housing Stability Answer Date Recorded What is your housing situati on today? I do not have housing (Staying with others, in a hotel, in a penitentiary, living outside on the street, on a [...] Miscellaneous Notes * Telephone Encounter - Nikhil Mi - 10/22/2024 1:41 PM EST Patient calling requesting PT1 Home Address verified: Y/N: Yes Provider name or facility name: [facility] Escort needed: Do you have a wheelchair: Y/N: No If yes- Manual or electric: Visits: (5 x Mothly) Patient calling requesting PT1 Home Address verified: Y/N: Yes Provider name or facility name: [facility], [address] [place] [address] Escort needed: Y/N: No Do you have a wheelchair: Y/N: No If yes- Manual or electric: Visits: (5 x Monthly) Patient calling requesting PT1 Home Address verified: Yes Provider name or facility name: [facility], [address] [facility] [address], [place] [address] Escort needed: Y/N: No Do you have a wheelchair: Y/N: No If yes- Manual or electric: Visits: (2 x Monthly) documented in this encounter Plan of Treatment Upcoming Encounters Date Type Department Care Team (Late st Contact Info) Description 06/27/2025 9:00 AM EST Office Visit [facility] [address] [place] [address] Salena Garcia, OD [address] [place] [address] documented as of this encounter Goals Goal [...] documented as of this encounter Care Teams Speech Therapist Technician Relationship Specialty Start Date End Date Cheryl Fitzpatrick MD [address] [place] [address] PCP - General Internal Medicine 09/10/22 Nick Castellanos FNP [address] [place], [place] Nurse Practitioner Family Medicine 07/04/23 Apolonia Mars gericare aide Credit AdjusterArchivist Political History 11/16/23 documented as of this encounter
--- OUTSIDE RECORDS SUMMARY | 2025-04-16 13:55 | XMS_ITS | Encounter Summary ---
Author Organization [employer] Address [address] [place] [address] 7[address] [place] [address] Care Team Providers Care Interior Assemblies Developer Prover Name Role Phone Cheryl Fitzpatrick MD Primary Care Provider + Nick Castellanos Unavailable Unavailable Reason for Visit * Reason Onset Date Comments PT1 10/27/2023 Encounter Details Date Type Department Care Team (Late st Contact Info) Description 10/27/2023 Telephone [facility] MEDICINE [address] [place], [place] [phone] Cheryl Fitzpatrick MD [address] [place], [place] [phone] PT1 Social History Tobacco Use Types Packs/Day [...] - 11/09/2023 1:24 PM EDT PT-1 Request [id number] Pending for [address] [facility] * Telephone Encounter - Maria De Jesus Epstein - 11/09/2023 1:20 PM EDT PT-1 Request [id number] Pending for [facility] [place] [place] * Telephone Encounter - Maria De Jesus Epstein - 11/09/2023 1:17 PM EDT PT-1 Request [id number] Pending For [facility] * Telephone Encounter - Shireen Johns - 10/27/2023 9:28 AM EST PT1 renewals Date: 11/09/2023 Time: 1:30 Visits: n/a Address: [address] [facility] [address] Facility: [facility] Wheel Chair: No Qm Nurse Needed: No Date: n/a Time: n/a Visits: n/a Address: [address] [facility] [address] Facility: [facility] [place] [place] Multiple Specialties Wheel Chair: no Qm Nurse Needed: no Date: n/a Time: n/a Visits: n/a Address: [address] [facility] Facility: [facility] Wheel Chair: no Qm Nurse Needed: no documented in this encounter Plan of Treatment Upcoming Encounters Date Type Department Care Team (Late st Contact Info) Description 06/27/2025 9:00 AM EST Office Visit [facility] OPTOMETRY [address] [place] [address] Salena Garcia OD [address] [place] [address] documented as of this encounter Goals Goal [...] documented as of this encounter Care Teams Interior Assemblies Developer Prover Relationship Specialty Start Date End Date Cheryl Fitzpatrick MD [address] [place] [address] PCP - General Internal Medicine 1/20/23 Nick Castellanos FNP [address] [place] [address] Nurse Practitioner Family Medicine 07/04/23 [address] Sh[address] Quality Control Lab Tech 11/11/23 02/10/24 Apolonia Mars weekend caregiver Quality Control Lab TechJavascript Web Developer 11/16/23 documented as of this encounter
--- OUTSIDE RECORDS SUMMARY | 2025-04-16 13:55 | XMS_ITS | Encounter Summary ---
Author Organization [employer] Address [address] [place] [address] 7t [place] [address] Care Team Providers Care Front Worker Name Role Phone Cheryl Fitzpatrick MD Primary Care Provider + Nick Castellanos Unavailable Unavailable Reason for Visit * Reason Onset Date Comments cx scheduled appt 02/08/2025 Encounter Details Date Type Department Care Team (Late st Contact Info) Description 02/08/2025 Telephone [facility] [address] [place], [place] [phone] Hema Hill DDS [address] [place], [place] [phone] cx scheduled appt Social History Tobacco Use Types Packs/Day Years [...] * Telephone Encounter - Anupama Garcia - 02/08/2025 9:03 AM EDT Patient called in and was scheduled for 02/12 fro denture adjustment due to pain. However, front office coordinator C called that they were in the process of offering that appt slot to another patient and appt for 02/12 had to cancelled. Appt for 03/06 was offered for patient however upon calling there was no answer. Left a voice message with instructions for patient to call back to arrange new appt time or can call in on Tuesday for emergency if pin worsens and persists. Provided phone number [phone] documented in this encounter Plan of Treatment Upcoming Encounters Date Type Department Care Team (Late st Contact Info) Description 06/27/2025 9:00 AM EST Office Visit [facility] OPTOMETRY [address] [place] [address] Salena Garcia, OD [address] [place] [address] documented as of this encounter Goals Goal [...] documented as of this encounter Care Teams Front Worker Relationship Specialty Start Date End Date Cheryl Fitzpatrick MD [address] [place] [address] PCP - General Internal Medicine 09/10/22 Nick Castellanos FNP [address] [place] [address] Nurse Practitioner Family Medicine 07/04/23 Apolonia Mars acute care certified nursing assistant Piercer OperatorDress Finisher 11/16/23 documented as of this encounter
--- OUTSIDE RECORDS SUMMARY | 2025-04-16 13:55 | XMS_ITS | Clinical Summary ---
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 and take Wellbutrin and Seroquel daily Refer to [facility] Pt has crisis number and is able to contract for safety. Encounters Date Type Department Care Team Description 04/16/2025 Orders Only GENERIC EXTERNAL DATA DEPARTMENT Provider, Generic External Data 04/12/2025 Travel 04/08/2025 Travel 04/05/2025 Telephone [facility] MEDICINE [address] [place] [phone] Ingrid Wolfe MD Accommodation Letter 04/01/2025 11:00 AM EDT Office Visit [address] [phone] Cayla Tompkins MD Mid back pain, chronic (Primary Dx); Chronic midline low back pain without sciatica; Arthritis of left hip; Chronic pain syndrome 04/01/2025 Travel 03/28/2025 Telephone [facility] MEDICINE [address] [place] [phone] Ingrid Wolfe MD 03/27/[address] [address] Ingrid Wolfe MD Housing Form (I called the patient, regarding a Physician's Certification of Handicapped Status. The patient stated that she has to move from where she is currently living, and is requesting an apartment that is not on a high floor. She stated that she will accept one on a high floor, if it has elevator access. She is requesting a copy of the form, after it has been faxed to housing.) 03/25/2025 Travel 03/21/[address] [phone] Ingrid Wolfe MD Migraine with aura and without status migrainosus, not intractable 03/20/2025 10:00 AM EDT Office Visit [facility] ADULT DENTAL [address] [place] [phone] Hema Hill DDS Ill-fitting dentures (Primary Dx) 03/15/2025 Refill [facility] MEDICINE [address] [place] [phone] Ingrid Wolfe MD Anxiety; Migraine with aura and without status migrainosus, not intractable; Type 2 diabetes mellitus with hyperglycemia, with long-term current use of insulin ([facility]) 03/11/[address] [address] Ingrid Wolfe MD Medication Question 03/11/[address] [address] Ingrid Wolfe MD Nurse Triage 03/06/2025 Orders Only [facility] MEDICINE Jaspreet Martinez, [place] [address] Ingrid Wolfe MD 02/21/2025 11:30 AM EDT Office Visit [facility] ADULT DENTAL [address] [facility] [place] [address] Hema Hill DDS Ill-fitting dentures (Primary Dx); Normal oral exam 02/21/2025 10:30 AM EDT Office Visit [facility] [place] [address] Ingrid Wolfe MD Type 2 diabetes mellitus with hyperglycemia, with long-term current use of insulin (CMS/HCC) (Primary Dx); Hepatic steatosis; Liver hemangioma; Flexural eczema; Arthritis of both shoulders; Major depressive disorder, recurrent episode, severe with mood-congruent psychotic features (CMS/HCC); Encounter for immunization 02/21/2025 Travel 02/20/2025 Telephone [facility] MED[facility] [place] [address] Ingrid Wolfe MD Chart Prep 02/13/2025 Refill [facility] MEDICINE [facility] [place] [address] Ingrid Wolfe MD Mild intermittent asthma with exacerbation 02/12/2025 9:00 AM EDT Office Visit [facility] ADULT DENTAL [address] [facility] [place] [address] Hema Hill DDS Ill-fitting dentures (Primary Dx) 02/12/2025 Results Follow-Up [facility] MEDICINE [facility] [place] [address] Ingrid Wolfe MD US Abdomen Complete 02/12/2025 Travel 02/12/2025 Telephone [facility] MEDICINE [facility] [place] [address] Ingrid Wolfe MD telephone call 02/08/2025 Telephone [facility] ADULT DENTAL [address] [facility] [place] [address] Hema Hill DDS cx scheduled appt 02/04/2025 Telephone [facility] MEDICINE [address] [place] [address] Ingrid Wolfe MD Medication Question 01/25/2025 10:00 AM EDT Office Visit [facility] ADULT DENTAL [address] [place] [address] Hema Hill DDS Ill-fitting dentures (Primary Dx) 01/21/2025 Telephone [facility] MEDICINE [address] [place] [address] Ingrid Wolfe MD Care Management (C3- program graduation/LVM) 01/17/2025 Orders Only GENERIC EXTERNAL DATA DEPARTMENT Provider, Generic External Data from Last 3 Months Immunizations Immunization Administration Dates Next Due Hep B, adult 06/24/2023,02/17/2023,12/21/2022 Influenza injectable quadriv alent preservative free 05/05/2023 Influenza, seasonal, injecta ble, preservative free 10/09/2024 Pfizer Covid-19 Vaccine 12+ Bivalent 10/01/2022 Pneumococcal Conjugate PCV 20 02/21/2025 Tdap 02/21/2025 Family History Medical History Relation Name Comments [...] with others, in a hotel, in a residential, living outside on the street, on a [...] Sign Reading Time Taken Comments Blood Pressure 110/70 03/20/2025 9:50 AM EDT Pulse 88 03/20/2025 9:50 AM EDT Temperature 36.4 C (97.5 F) 02/21/2025 10:33 AM EDT Respiratory Rate 16 02/21/2025 10:33 AM EDT Oxygen Saturation 97% 10/09/2024 1:04 PM EST Inhaled Oxygen Concentration - - Weight 92.1 kg (203 lb) 02/21/2025 10:33 AM EDT Height 167.6 cm (5' 6 ) 02/21/2025 10:33 AM EDT Body Mass Index 32.77 02/21/2025 10:33 AM EDT Plan of Treatment Upcoming Encounters Date Type Department Care Team (Late st Contact Info) Description 06/27/2025 9:00 AM EST Office Visit [facility] OPTOMETRY [address] [place] [address] Salena Garcia, OD [address] [place] [address] Health Maintenance Due Date Last Done Comments CT Colonography 1975 Dental Prophylaxis 1975 FIT DNA/Cologuard 1975 FIT 1975 FOBT 1975 Sigmoidoscopy 1975 Alcohol/Substance Use Screening 1987 Family Planning (PISQ) 1990 Hepatitis A Vaccines (1 of 2 - Risk 2-dose series) 1994 Dental X-Ray: Bitewings 09/18/2023 09/17/2022 Eye Exam 12/14/2023 12/13/2022, 11/21, 12/13/2022, Additional history exists COVID-19 Vaccine ( season) 2024 10/01/2022 Influenza Vaccine (#1) 2025 10/09/2024, 2022 Diabetes: Hemoglobin A1C 05/24/2025 025, 10/09/2024, 07/17/2024, Additional history exists SDOH Screening 07/18/2025 07/18/2024 Depression Monitoring 08/24/2025 02/21/2025, 025 Dental Oral Exam 08/25/2025 02/21/2025, 01/2024, 09/17/2022 Diabetes: Urine Protein Screening 08/31/2025 08/31/2024, 11/09/2022, 10/24/2020 Diagnostic Breast Imaging 09/06/20252024, 09/04/2024, 02/09/2024 Mammogram 09/06/2025 03/06/2025, 08/22, 02/09/2024, Additional history exists Zoster Vaccines (1 of 2) 2025 Lipid Panel 11/29/2025 11/29/2024, 09/22, 08/31/2024, Additional history exists Diabetes: Foot Exam 02/21/2026 02/21/2025, 02/21/2025, 02/21/2025, Additional history exists Disability Screening 02/21/2026 02/21/2025 Tobacco Screening 04/03/2026 04/03/2025 Dental X-Ray: Full Mouth 07/28/2027 024, 02/08/2023, 09/17/2022 Colonoscopy 04/27/2028 04/27/2023 Colorectal Cancer Screening 04/27/2028 DTaP/Tdap/Td Vaccines (2 - Td or Tdap) 02/21/2035 02/21/2025 RSV Patients and Patients Aged 60 years or older (1 - 1-dose 75+ series) 2050 HPV/Cotest Discontinued 11/29/2022 Hepatitis B Vaccines Completed 06/24/2023, 02/17/2023, 12/21/2022 Cervical Cancer Screening Discontinued Pap Smear Discontinued 12/14/2023, 11/29/2022 HIV Screening Completed 10/04/2024, 03/2023, 11/29/2022, Additional history exists Hepatitis C Screening Completed 10/04/2024 , 06/29/2023, 11/29/2022 Pneumococcal Vaccine: Pediatrics (0 to 5 Years) and At-Risk Patients (6 to 49) Years Completed 02/21/2025 HIB Vaccines Aged Out No longer eligi ble based on patient's age to complete this topic HPV Vaccines Aged Out No longer eligi ble based on patient's age to complete this topic IPV Vaccines Aged Out No longer eligi ble based on patient's age to complete this topic Meningococcal B Vaccine Aged Out No l onger eligible based on patient's age to complete [...] 10:41 AM EDT) No Kenzie Tran PharmD Procedures Procedure Name Priority Date/Time Associated Diagnosis Comments URINALYSIS, COMPLETE, WITH REFLEX TO CULTURE Routine 04/16/2025 11:54 AM EDT HCG, TOTAL, QN Routine 04/16/2025 11:46 AM EDT HIGH SENSITIVITY TROPONIN I Routine 04/16/2025 11:46 AM EDT CREATINE KINASE, TOTAL Routine 04/16/2025 11:46 AM EDT MAGNESIUM Routine 04/16/2025 11:46 AM EDT COMPREHENSIVE METABOLIC PANEL Routine 04/16/2025 11:46 AM EDT CBC WITH AUTO DIFFERENTIAL Routine 04/16/2025 11:46 AM EDT COVID-19 ID NOW (AGUILAR) Routine 04/16/2025 10:48 AM EDT INFLUENZA A B2 ID NOW (AGUILAR) Routine 04/16/2025 10:48 AM EDT STREP A NUCLEIC ACID Routine 04/16/2025 10:48 AM EDT DENTURE ADJUSTMENT Routine 03/20/2025 10 :00 AM EDT BI MAMMOGRAM DIAGNOSTIC TOMOSYNTHESIS BILATERAL Routine 03/06/2025 12:00 PM EDT PERIODIC ORAL EVALUATION - ESTABLISHED PATIENT Routine 02/21/2025 11:30 AM EDT CASE PRESENTATION, DETAILED AND EXTENSIVE TREATMENT PLANNING Routine 02/21/2025 11:30 AM EDT DENTURE ADJUSTMENT Routine 02/21/2025 11 :30 AM EDT POCT GLYCATED HEMOGLOBIN, TOTAL Routine 02/21/2025 10:41 AM EDT Type 2 diabetes mellitus with hyperglycemia, with long-term current use of insulin ([facility]) POCT GLUCOSE Routine 02/21/2025 10:38 AM EDT Type 2 diabetes mellitus with hyperglycemia, with long-term current use of insulin (CMS/[facility]) NO CHARGE - REDO PROCEDURE Routine 02/12/2025 9:00 AM EDT US ABDOMEN COMPLETE Routine 02/04/2025 9 :00 AM EDT Elevated liver enzymes DENTURE REPAIR < 6 MONTHS Routine 01/25/2025 10:00 AM EDT CULTURE, URINE, ROUTINE Routine 01/17/2025 3:42 PM EDT LIPID PANEL WITH REFLEX TO DIRECT LDL Routine 11/29/2024 8:21 AM EDT Mixed hyperlipidemia HEPATITIS PANEL, GENERAL Routine 10/04/2024 8:16 AM EST Elevated liver enzymes Mixed hyperlipidemia HIV 1/2 ANTIGEN/ANTIBODY, FOURTH GENERATION W/RFL Routine 10/04/2024 8:16 AM EST Elevated liver enzymes Mixed hyperlipidemia ALBUMIN, RANDOM URINE W/CREATININE Routine 08/31/2024 2:09 PM EST Type 2 diabetes mellitus with hyperglycemia, with long-term current use of insulin ([facility]) PANORAMIC RADIOGRAPHIC IMAGE Routine 07/27/2024 9:00 AM EST PAP SMEAR [...] Relevant to Health Maintenance Results * (ABNORMAL) Urinalysis, Complete, with Reflex to Culture (04/16/2025 11:54 AM EDT) Color Urine Yellow [facility] Appearance Urine Clear [facility] PH 5.5 5.0 - 9.0 [facility] Glucose Urine UA >=1000(A) Negative mg/dL [facility] Urine Blood Negative Negative [facility] Specific [place] - Urine >=1.030(H) 1.005 - 1.025 [facility] Urine Protein Negative Neg-Trace mg/dL [facility] Urine Ketones Trace Negative mg/dL [facility] Nitrite Urine Negative Negative [facility] Leukocyte Esterase Urine Negative Negative [facility] RBC Urine 0-2 0 - 2 /HPF [facility] Urine WBC 6-10(A) 0 - 5 /HPF [facility] Urine Squamous Epithelial Cell 0-2 0 - 2 /HPF [facility] Urine Bacteria None Seen None Seen [facility] Hyaline Casts, Urine 3-5 0 - 2 /LPF [facility] 04/16/2025 11:5 4 AM EDT 04/16/2025 12:13 PM EDT Narrative [facility] - 04/16/2025 12:23 PM EDT [id number], Clean Catch Generic External Data Provider LAB URINE ORDERAB LES Final Result Performing Organization Address [facility] Co de Phone Number [facility] [address] [place] [phone] * High Sensitivity Troponin I (04/16/2025 11:46 AM EDT) TROPONIN I HIGH SENSITIVITY <2.7 <3.5 - 17.0 ng/L [facility] Comment:The Aguilar high sens itivity Troponin-I results should beused in conjunction with other diagnostic information suchas ECG, clinical observations and information, and patientsymptoms to aid in the diagnosis of NH. 04/16/2025 11:4 6 AM EDT 04/16/2025 11:50 AM EDT Generic External Data Provider LAB BLOOD ORDERAB LES Final Result Performing Organization Address [facility] Co de Phone Number [facility] [address] [place] [address] [phone] * CBC auto differential (04/16/2025 11:46 AM EDT) White Blood Count 6.2 4.8 - 10.8 X10*3/uL [facility] Red Blood Count 4.71 4.20 - 5.50 X10*6/uL [facility] Hemoglobin 13.8 12.0 - 16.0 g/dl [facility] Hematocrit 40.9 37.0 - 47.0 % [facility] Mean Corpuscular Volume 86.8 80.0 - 98.0 fL [facility] Mean Corpuscular Hemoglobin 29.3 27.0 - 33.0 pg [facility] Mean Corpuscular HGB Conc 33.7 31.0 - 35.0 g/dl [facility] Red Cell Distribution Width 14.4 11.0 - 16.0 % [facility] Platelet Count 288 160 - 400 X10*3/uL [facility] Mean Platelet Volume 10.2 9.4 - 12.3 fL [facility] Neutrophils Percent Auto 55.0 45 - 73 % [facility] Imm Gran Pct Auto 0.2 0.0 - 0.4 % [facility] Lymphocytes Percent Auto 34.7 20 - 40 % [facility] Monocytes Percent Auto 6.5 2 - 11 % [facility] Eosinophils Percent Auto 2.8 0 - 4 % [facility] Basophils Percent Auto 0.8 0 - 2 % [facility] NRBC Pct Auto 0.0 0.0 - 0.2 /100WBC [facility] Neutrophils Absolute Auto 3.4 2.0 - 8.3 x10*3/uL [facility] Imm Gran Abs Auto 0.01 0.00 - 0.03 X10*3/uL [facility] Lymphocytes Absolute Auto 2.1 1.2 - 4.9 X10*3/uL [facility] Monocytes Absolute Auto 0.4 0.1 - 1.2 X10*3/uL [facility] Eosinophils Absolute Auto 0.2 0.0 - 0.4 X10*3/uL [facility] Basophils Absolute Auto 0.1 0.0 - 0.2 X10*3/uL [facility] NRBC Abs Auto 0.000 0.0 - 0.012 X10*3/uL [facility] 04/16/2025 11:4 6 AM EDT 04/16/2025 11:50 AM EDT us Generic External Data Provider LAB BLOOD ORDERAB LES Final Result Performing Organization Address City/[facility]/ZIP Co de Phone Number [facility] [address] [place] [phone] * hCG, Total, Quantitative (04/16/2025 11:46 AM EDT) HCG Quantitative <2 mIU/mL [facility] Comment:Weeks post LMP Appro ximate hCG(Last Menstrual Period) Range (mIU/ml)3 - 4 weeks 9 - 1304 - 5 weeks 75 - 2,6005 - 6 weeks 850 - 20,8006 - 7 weeks 4000 - 100,2007 - 12 weeks 11,500 - 289,46624 - 16 weeks 18,300 - 137,54016 - 29 weeks (2nd trimester) 1,400 - 53,70895 - 41 weeks (3rd trimester) 940 - 60,000The Aguilar B- hCG assay is used for the early detection ofpregnancy; it cannot be used to diagnose any conditionunrelated to . If a B-hCG level is not supportedby the clinical evidence, results should be confirmed by analternative method (qualitative urine hCG, for example). 04/16/2025 11:4 6 AM EDT 04/16/2025 11:50 AM EDT us Generic External Data Provider LAB BLOOD ORDERAB LES Final Result Performing Organization Address City/[facility]/ZIP Co de Phone Number [facility] [address] [place] [phone] * Magnesium (04/16/2025 11:46 AM EDT) Magnesium 2.1 1.6 - 2.6 mg/dL [facility] 04/16/2025 11:4 6 AM EDT 04/16/2025 11:50 AM EDT us Generic External Data Provider LAB BLOOD ORDERAB LES Final Result Performing Organization Address [facility] Co de Phone Number [facility] [address] [place] [phone] * (ABNORMAL) Creatine Kinase, Total (04/16/2025 11:46 AM EDT) Creatine Kinase Total 393(H) 26 - 140 U/L [facility] 04/16/2025 11:4 6 AM EDT 04/16/2025 11:50 AM EDT Generic External Data Provider LAB BLOOD ORDERAB LES Final Result Performing Organization Address [facility] de Phone Number [facility] [address] [place] [phone] * (ABNORMAL) Comprehensive Metabolic Panel (04/16/2025 11:46 AM EDT) Pathologist [facility] Sodium 138 135 - 145 mmol/L [facility] Potassium 3.7 3.3 - 5.1 mmol/L [facility] Chloride 108 96 - 108 mmol/L [facility] Carbon Dioxide 22 22 - 29 mmol/L [facility] Anion Gap 12 12 - 20 [facility] Urea Nitrogen (BUN) 13 9 - 16 mg/dL [facility] Creatinine, Serum 0.55 0.5 - 1.4 mg/dL [facility] Creatinine Clr Calc Pharmacy 138.6 [facility] Comment:Provided height and weight: 167.64 cm,88.451 kg.eGFR (calculated from the MDRD study equation) and eCrCl(calculated from the Cockcroft-Gault equation) are based ondifferent parameters and may not yield comparable results.If eCrCl result is absurd, please check patient'sheight/weight. Estimated Glomerular Filt Rate >60 [facility] Comment:Chronic Kidney Disea se: Estimated GFR < 60 mL/min/1.85b8Qvhzkv Kidney Disease: Estimated GFR < 15 mL/min/1.73m2 Glucose 152(H) 60 - 115 mg/dL [facility] Calcium 9.2 8.4 - 10.2 mg/dL [facility] Bilirubin, Total 0.2 0.0 - 1.0 mg/dL [facility] Aspartate Amino Transferase 33(H) 5 - 31 U/L [facility] Alanine Aminotransferase 51(H) 0 - 31 U/L [facility] Total Protein 7.2 6.5 - 8.0 g/dL [facility] Albumin Level 4.6 3.5 - 5.0 g/dL [facility] Alkaline Phosphatase 84 39 - 117 U/L [facility] 04/16/2025 11:4 6 AM EDT 04/16/2025 11:50 AM EDT us Generic External Data Provider LAB BLOOD ORDERAB LES Final Result [facility] [address] [place] [phone] * Influenza A B2 ID NOW (Aguilar) (04/16/2025 10:48 AM EDT) IDNOW SERIAL# [id number] [facility] Influenza A Negative Negative [facility] Influenza B2 Negative Negative [facility] Influenza A B2 Note See Note [facility] Comment:The Aguilar ID NOW In fluenza A B2 test is used for thequalitative detection of influenza A and B from patientswith signs and symptoms of respiratory infection.Negative results do not preclude influenza virus infectionand should not be used as the sole basis for diagnosis,treatment or other patient management decisions.There is a risk of false negative results due to thepresence of variants in the viral targets of the assay, lowlevels of virus in the specimen and co- infection withRespiratory Syncytial Virus. 04/16/2025 10:4 8 AM EDT 04/16/2025 10:53 AM EDT Generic External Data Provider LAB MICROBIOLOGY - GENERAL ORDERABLES Final Result Performing Organization Address [facility] Co de Phone Number [facility] [address] [place] [phone] * Strep A Nucleic Acid (04/16/2025 10:48 AM EDT) IDNOW SERIAL# [id number] [facility] Strep A Nucleic Acid Negative Negative [facility] Comment:All test results mus t be correlated with clinical findings.This test has not been evaluated for monitoring treatment ofinfection.Additional follow-up testing using the culture method isrequired if the result is negative and clinical symptomspersist, or in the event of an acute rheumatic feveroutbreak. 04/16/2025 10:4 8 AM EDT 04/16/2025 10:53 AM EDT Generic External Data Provider LAB MICROBIOLOGY - GENERAL ORDERABLES Final Result Performing Organization Address [facility] de Phone Number [facility] [address] [place] [phone] * COVID-19 ID NOW (AGUILAR) (04/16/2025 10:48 AM EDT) IDNOW SERIAL# [id number] [facility] COVID-19 TEST Negative Negative [facility] COVID-19 NOTE See Note [facility] Comment: Results are for the identification of SARS-CoV2 RNA. TheSARS-CoV2 RNA is generally detectable in respiratory samplesduring the acute phase of infection. Positive results areindicative of the presence of SARS-CoV-2 RNA; clinicalcorrelation with patient history and other diagnosticinformation is necessary to determine patient infectionstatus. Positive results do not rule out bacterial infectionor co- infection with other viruses.Testing facilities within the [facility] and itsterritories are required to report all positive results tothe appropriate public health authorities.Negative results should be treated as presumptive and, ifinconsistent with clinical signs and symptoms or necessaryfor patient management, should be tested with differentauthorized or cleared molecular tests. Negative results donot preclude SARS-CoV2 RNA infection and should not be usedas the sole basis for patient management decisions. Negativeresults should be considered in the context of a patient'srecent exposures, history and the presence of clinical signsand symptoms consistent with COVID-19.This test has been authorized by the FDA under an EmergencyUse Authorization (EUA) for use by authorized laboratories.Testing performed on the [employer] NOW utilizing NAAT. 04/16/2025 10:4 8 AM EDT 04/16/2025 10:53 AM EDT us Generic External Data Provider LAB MOLECULAR ERIC GNOSTICS ORDERABLES Final Result [facility] [address] [place] [phone] * BI Mammogram Diagnostic Tomosynthesis Bilateral (03/06/2025 12:00 PM EDT) Anatomical Region Laterality Modality Breast Bilateral Mammography 03/06/2025 12:0 0 PM EDT Narrative 03/06/2025 1:55 PM EDT [address] [place] [address] Mammography Report Signed Patient: Lizet Cash MR# : [id number] : 1975 Acct:[id number] Age/Sex: 49 / F ADM Date: 03/06/25 Loc: HO.MAMMO Attending Dr: Ingrid Wolfe MD Ordering Physician: Ingrid Wolfe MD Results: 3.12MProbably Benign Finding - 12 month F/U Suggested Date of Service: 03/06/25 Follow Up: 12 month diagnos tic follow up Procedure(s): MM tomosynthesis diagnostic BI Accession Number(s): [id number] cc: Ingrid Wolfe MD EXAMINATION: MM DIAGNOSTIC DIGITAL BREAST TOMOSYNTHESIS, BILATERAL CLINICAL INFORMATION: 1 year follow-up for grouped calcifications in the upper central right breast posterior depth. COMPARISON: Mammography: Comparison is made with relevant prior exams. TECHNIQUE: Digital breast mammography with tomosynthesis is performed in both the craniocaudal and mediolateral oblique views along with computer-aided detection (CAD). FINDINGS: There are scattered areas of fibroglandular density (ACR BI-RADS breast composition Category b). Grouped punctate calcifications in the upper central right breast are not significantly changed from prior magnification views dating back for one year. No suspicious masses or other abnormal findings. Results are provided to the patient at time of visit by the technologist. MM/MM tomosynthesis diagnostic BI IMPRESSION: Grouped calculations in the upper central breast posterior depth are not significantly changed from prior magnification views dating back for one year. Probably benign. Recommend diagnostic mammography in 12 months to demonstrate 2 years of stability. ASSESSMENT: BI-RADS BI-RADS 3 - Probably benign finding(s) - 12 month follow-up suggested RECOMMENDATION: 12 month diagnostic follow up This patient's information was entered into a reminder system with a target due date for their next mammogram. Electronically signed by: Winifred Perez DO 03/06/2025 01:52 PM EDT Dictated By: Winifred Perez DO Signed By: <Electronically signed by Winifred Perez DO in OV> 03/06/25 1352 DD/ 1200 TD/TT: 03/06/25 1250 Refund Clerk: Procedure Note Donotuseinterpreter, Image - 03/06/2025 [facility] [address] [place] [address] [place] [address] Mammography Report Signed Patient: Augusto Cash# : [id number] : 1975Acct:[id number] Age/Sex: 49 / FADM Date: 03/06/25 Loc: HO.MAMMO Attending Dr: Ingrid Wolfe MD Ordering Physician: Ingrid Wolfe MD Results: 3.12MProbably Benign Finding - 12 month F/U Suggested Date of Service: 03/06/25Follow Up: 12 month diagnos tic follow up Procedure(s): MM tomosynthesis diagnostic BI Accession Number(s): [id number] cc: Ingrid Wolfe MD EXAMINATION: MM DIAGNOSTIC DIGITAL BREAST TOMOSYNTHESIS, BILATERAL CLINICAL INFORMATION: 1 year follow-up for grouped calcifications in the upper central right breast posterior depth. COMPARISON: Mammography: Comparison is made with relevant prior exams. TECHNIQUE: Digital breast mammography with tomosynthesis is performed in both the craniocaudal and mediolateral oblique views along with computer-aided detection (CAD). FINDINGS: There are scattered areas of fibroglandular density (ACR BI-RADS breast composition Category b). Grouped punctate calcifications in the upper central right breast are not significantly changed from prior magnification views dating back for one year. No suspicious masses or other abnormal findings. Results are provided to the patient at time of visit by the technologist. MM/MM tomosynthesis diagnostic BI IMPRESSION: Grouped calculations in the upper central breast posterior depth are not significantly changed from prior magnification views dating back for one year. Probably benign. Recommend diagnostic mammography in 12 months to demonstrate 2 years of stability. ASSESSMENT: BI-RADS BI-RADS 3 - Probably benign finding(s) - 12 month follow-up suggested RECOMMENDATION: 12 month diagnostic follow up This patient's information was entered into a reminder system with a target due date for their next mammogram. Electronically signed by: Winifred Perez DO 03/06/2025 01:52 PM EDT Dictated By: Winifred Perez DO Signed By: <Electronically signed by Winifred Perez DO in OV> 03/06/25 1352 DD/ 1200 TD/TT: 03/06/25 1250 Refund Clerk: us Ingrid Wolfe MD [facility] BI PROCEDURES Final Result * (ABNORMAL) POCT HGB A1C (02/21/2025 10:41 AM EDT) Hemoglobin A1C 8.2(A) 4.0 - 5.7 % QC Media Lot # [id number] Lot# Expiration Date Blood 02/21/2025 10:4 1 AM EDT us Ingrid Wolfe MD POINT OF CARE TEST ENTER /EDIT ORDERABLES Final Result * POCT Glucose (02/21/2025 10:38 AM EDT) Glucose Blood, POC 121 60 - 200 mg/dL Comment:random QC Media Lot # [id number] Lot# Expiration Date Blood Capillary blood specimen / Unknown 02/21/2025 10:38 AM EDT us Ingrid Wolfe MD POINT OF CARE TEST ENTER /EDIT ORDERABLES Final Result * US Abdomen Complete (02/04/2025 9:00 AM EDT) Anatomical Region Laterality Modality Abdomen Ultrasound 02/04/2025 9:00 AM EDT Narrative 02/04/2025 10:50 AM EDT [place] [address] Ultrasound Report Signed Patient: Lizet Cash MR# : [id number] : 1975 Acct:[id number] Age/Sex: 49 / F ADM Date: 02/04/25 Loc: .US Attending Dr: Ingrid Wolfe MD Ordering Physician: Ingrid Wolfe MD Date of Service: 02/04/25 Procedure(s): US abdomen complete Accession Number(s): [id number] cc: Ingrid Wolfe MD EXAMINATION: US ABDOMEN COMPLETE CLINICAL INFORMATION: Elevated liver enzymes. Diabetes. Fatty liver.. COMPARISON: Correlated to renal ultrasound dated April 06, [address] abdomen dated January 04, 2023. TECHNIQUE: Real-time ultrasound of the abdomen using grayscale technique. FINDINGS: PANCREAS: No peripancreatic fluid collections. ABDOMINAL AORTA: The proximal, mid, and distal segments are normal in caliber. INFERIOR VENA CAVA: Visualized portions are normal. LIVER: Liver measures 17 cm. Coarse echotexture. No nodular surface. There is a 1.3 cm round hyperechoic abnormality, right hepatic lobe. No intrahepatic biliary ductal dilatation. GALLBLADDER: Gallbladder is fluid-filled. No pericholecystic fluid collection or gallbladder wall thickening. COMMON BILE DUCT: 4 mm. RIGHT KIDNEY: 14 cm. Normal echotexture. Normal renal cortical thickness. No hydronephrosis. No gross solid or cystic lesion detected by the technologist. . LEFT KIDNEY: 13 cm. Normal echotexture. Normal renal cortical thickness. No hydronephrosis. No solid or cystic lesion detected by the technologist.. SPLEEN: 11 cm. No focal lesion.. FREE FLUID: None. US/US abdomen complete IMPRESSION: Hepatomegaly, mild and likely steatosis. Probable 1.3 cm hemangioma, right hepatic lobe. No cholelithiasis. No hydronephrosis. No ascites. Electronically signed by: Cruz Pierson MD 02/04/2025 10:47 AM EDT RP Dictated By: Cruz Pérez MD Signed By: <Electronically signed by Cruz Amor MD in OV> 02/04/25 1047 DD/ 0900 TD/TT: 02/04/25 0910 Refund Clerk: Procedure Note Donotuseinterpreter, Image - 02/04/2025 [place] [address] Ultrasound Report Signed Patient: Augusto Cash# : [id number] : 1975Acct:[id number] Age/Sex: 49 / FADM Date: 02/04/25 Loc: HO.US Attending Dr: Ingrid Wolfe MD Ordering Physician: Ingrid Wolfe MD Date of Service: 02/04/25 Procedure(s): US abdomen complete Accession Number(s): [id number] cc: Ingrid Wolfe MD EXAMINATION: US ABDOMEN COMPLETE CLINICAL INFORMATION: Elevated liver enzymes. Diabetes. Fatty liver.. COMPARISON: Correlated to renal ultrasound dated April 06, [address] abdomen dated January 04, 2023. TECHNIQUE: Real-time ultrasound of the abdomen using grayscale technique. FINDINGS: PANCREAS: No peripancreatic fluid collections. ABDOMINAL AORTA: The proximal, mid, and distal segments are normal in caliber. INFERIOR VENA CAVA: Visualized portions are normal. LIVER: Liver measures 17 cm. Coarse echotexture. No nodular surface. There is a 1.3 cm round hyperechoic abnormality, right hepatic lobe. No intrahepatic biliary ductal dilatation. GALLBLADDER: Gallbladder is fluid-filled. No pericholecystic fluid collection or gallbladder wall thickening. COMMON BILE DUCT: 4 mm. RIGHT KIDNEY: 14 cm. Normal echotexture. Normal renal cortical thickness. No hydronephrosis. No gross solid or cystic lesion detected by the technologist. . LEFT KIDNEY: 13 cm. Normal echotexture. Normal renal cortical thickness. No hydronephrosis. No solid or cystic lesion detected by the technologist.. SPLEEN: 11 cm. No focal lesion.. FREE FLUID: None. US/US abdomen complete IMPRESSION: Hepatomegaly, mild and likely steatosis. Probable 1.3 cm hemangioma, right hepatic lobe. No cholelithiasis. No hydronephrosis. No ascites. Electronically signed by: Cruz Pierson MD 02/04/2025 10:47 AM EDT RP Dictated By: Cruz Pérez MD Signed By: <Electronically signed by Cruz Amor MDin OV> 02/04/25 1047 DD/ 0900 TD/TT: 02/04/25 0910 Refund Clerk: Ingrid Wolfe MD [facility] US PROCEDURES Edited Result - Final * Culture, Urine, Routine (01/17/2025 3:42 PM EDT) Urine Urine specimen obtained by clean catch procedure / Unknown 01/17/2025 3:42 PM EDT 01/17/2025 5:05 PM EDT Comment:[facility] - 01/19/2025 11:25 AM EDT Urine Culture Report Result Urine Culture 50,000 to 100,000 cfu/ml Urine Culture Mixed bacterial kerri characteristic of Urine Culture urogenital contamination. Specimen Source: Urine clean catch us Generic External Data Provider LAB MICROBIOLOGY - GENERAL ORDERABLES Final Result Performing Organization Address [facility] Co de Phone Number [facility] [address] [place] [address] [phone] * (ABNORMAL) Lipid Panel with Reflex to Direct LDL (11/29/2024 8:21 AM EDT) Triglycerides 178(H) <150 mg/dL [facility] Comment:Desirable Triglyceri de: less than 150 mg/dLBorderline High Triglyceride 150-199 mg/dLHigh Triglyceride: 200-499 mg/dLVery High Triglyceride: greater than or equal to 5OO mg/dL Cholesterol 144 <200 mg/dL [facility] Comment:Desirable Cholestero l: less than 200 mg/dLBorderline High Cholesterol: 200-239 mg/dLHigh Cholesterol: greater than 239 mg/dL LDL Cholesterol Calculated 72 <100 mg/dL [facility] Comment:Desirable LDL: less than 100 mg/dLNear Optimal/Above Optimal LDL: 110- 129 mg/dLBorderline High LDL: 130-159 mg/dLHigh LDL: 160-189 mg/dLVery High LDL: greater than or equal to 190 mg/dL HDL Cholesterol 37(L) >40 mg/dL [facility] Comment:Desirable HDL: great er than 40 mg/dL Note: This HDL assay may give artificially low results in patients with liver disease. Blood 11/29/2024 8:21 AM EDT 11/29/2024 11:37 AM EDT Ingrid Wolfe MD LAB BLOOD ORDERABLES Fin al Result Performing Organization Address [facility]/ZIP Co de Phone Number [facility] [address] [place] [address] [phone] * Hepatitis Panel, General (10/04/2024 8:16 AM EST) Hepatitis A IgM Nonreactive Nonreactive [facility] Comment:IgM antibodies to GUILLORY V not detected; does not exclude earlyacute or recovered HAV infection. ~Hepatitis B Surface Antibody REACTIVE Nonreactive [facility] Comment:REACTIVE: > 11.99 mI U/mL Hepatitis B Core Antibody Nonreactive Nonreactive [facility] Hepatitis C Antibody Nonreactive Nonreactive [facility] Comment:Antibodies to HCV no t detected; does not exclude early acuteHCV infection. Hepatitis B Surface Ag Negative Negative [facility] Blood 10/04/2024 8:16 AM EST 10/04/2024 11:15 AM EST us Ingrid Wolfe MD LAB BLOOD ORDERABLES Fin al Result Performing Organization Address City/[facility]/ZIP Co de Phone Number [facility] [address] [place] [address] [phone] * HIV-1/2 Antigen and Antibodies, Fourth Generation, with Reflexes (10/04/2024 8:16 AM EST) [facility] HIV AB/AG Nonreactive Nonreactive [facility] Comment:HIV-1 p24 Ag and/or HIV-1/HIV-2 Ab not detected.A test result that is nonreactive does not exclude thepossibility of exposure to or infection with HIV-1 and/orHIV-2. Nonreactive results in this assay for individualswith prior exposure to HIV-1 and/or HIV-2 may be due toantigen and antibody levels that are below the limit ofdetection of this assay.[employer] HIV Ag/Ab Combo assay result andsupplemental assay results should be interpreted inconjunction with the patient's clinical presentation,history and other laboratory results. If the results areinconsistent with clinical evidence, additional testing issuggested to confirm the result. Blood Venous blood specimen / Unknown 10/04/2024 8:16 AM EST 10/04/2024 11:15 AM EST us Ingrid Wolfe MD LAB BLOOD ORDERABLES Fin al Result [facility] [address] [place] [address] [phone] * Albumin, Random Urine W/Creatinine (08/31/2024 2:09 PM EST) Creatinine, Urine 31.14 mg/dL [facility] Microalbumin Urine <5.0 mg/L H [facility] Microalbum Creatinine Ratio Ur TNP <30 ug/mg cr [facility] Comment:Unable to calculate albumin/creatinine ratio due to lowmicroalbumin or creatinine result. Urine (Urine, Random) 08/31/2024 2:09 PM EST 08/31/2024 4:00 PM EST us Ingrid Wolfe MD LAB URINE ORDERABLES Fin al Result [facility] [address] [place] [phone] * Pap Smear (12/14/2023 11:23 AM EDT) Swab Cervix uteri structure / Unknown 12/14/2023 11:23 AM EDT 12/14/2023 2:20 PM EDT Narrative [facility] - 01/02/2024 11:54 AM EDT ----- ------- Name: Lizet Cash Age/Sex: 48/F : 1975 Unit#: [id number] Attend Dr: Ingrid Wolfe MD Re12/14/23 Status: DEP REF Location: [facility] Disch: ----- ------- SPEC : [id number] RECD: 12/14/23 STATUS: LATISHA VARELA NUM: [id number] JUANCARLOS: 12/14/23-[address] [facility] [address]: Ingrid Wolfe MD ENTERED: 12/14/231863 SP TYPE: Pap Smr OTHR DR: ORDERED: Pap Smear Interpretation Satisfactory for evaluation. Negative for intraepithelial lesion or malignancy. Clinical Information LMP: Unknown date Previous PAP test: Unknown date/findings Other history: Hx cervical CA 5y ago Material Received ThinPrep-Vaginal/Cervical ----- ------- Signed (signature on file) CLARISA Lu (ASCP) 01/02/24 1154 ----- ------- END OF REPORT us Ingrid Wolfe MD LAB CYTOLOGY ORDERABLES Final Result [facility] [address] [place] [phone] * (ABNORMAL) Hm Colonoscopy (04/27/2023) Colonoscopy Abnormal(A ) Normal [facility] us Ingrid Wolfe MD HEALTH MAINTENANCE Final Result [facility] [address] [place] [address] [phone] * Image-Guided Pap with Age-Based Screening??with CT/NG,??Trichomonas (11/29/2022 10:52 AM EDT) Comment [employer] Comment: This order for age-based cervical cancer and STI screening follows ACOG guidelines(PB 168, 140, BCP774). See individual assays for performing site location. Clinical Information: HISTORY OF HYST DUE YUSUF [employer] [facility] LMP: NONE GIVEN [employer] Prev. PAP: YES [employer] Prev. BX: NONE GIVEN [employer] [facility] SOURCE: None given [employer] Statement Of Adequacy: SATISFACTORY FOR EVALUATION [employer] ([place]) Interpretation/Re sult: Negative for intraepithelial lesion or malignancy. [employer] [facility] COMMENT: This Pap test has been evaluated with computer assisted technology. [employer] Second Hand Paper Machine: [employer] Comment: KF, CT(ASCP) CT screening location: [place] [address] Review Second Hand Paper Machine: [employer] Comment: BLC,CT(ASCP) CT screening location: [place] [address] (Always Message) [employer] [facility] Comment: EXPLANATORY NOTE: The Pap is a [...] HPV nRNA E6/E7 Not Detected Not Detected [employer] Comment: Methodology: Full Roll Inspector-Mediated Amplification This assay detects E6/E7 viral messenger RNA (mRNA) from 14 high-risk HPV types (16,18,31,33,35,39,45,51,52,56,58,59,66,68). Cervical sources are required for HPV testing. If a vaginal source from a patient who has had a total hysterectomy with removal of cervix was submitted, please contact the testing laboratory for alternative testing options. For additional information, please refer to http://[employer]/faq/UUZ845w7 (This link if provided for information/ educational purposes only.) Chlamydia trachomatis RNA, TMA, Urogenital NOT DETECTED NOT DETECTED [employer] ([place]) Neisseria gonorrhoeae RNA, TMA, Urogenital NOT DETECTED NOT DETECTED [employer] ([place]) (Always Message) Que st Diagnostics [employer] Comment: The analytical performance characteristics of this assay, when used to test SurePath(TM) specimens have been determined by [employer]. The modifications have not been cleared or approved by the FDA. This assay has been validated pursuant to the CLIA regulations and is used for clinical purposes. For additional information, please refer to https://[employer]/faq/NGD774 (This link is being provided for information/ educational purposes only.) Trichomonas vaginalis, QL, TMA, PAP Vial NOT DETECTED NOT DETECTED [employer] ([place]) Comment: The analytical performance characteristics of this assay have been determined by [employer]. The modifications have not been cleared or approved by the FDA. This assay has been validated pursuant to the CLIA regulations and is used for clinical purposes. For additional information, please refer to http://[employer]/ faq/Trichomonastma (This link is being provided for information/ educational purposes only.) Cytology specimen container (physical object) 11/29/2022 10:52 AM EDT 11/30/2022 12:36 AM EDT Leeann Wood CNM LAB CYTOLOGY ORDERABLES F inal Result [facility] [address], [place] [address] [employer] ([place]) [address] [place] [address] from Last 3 Months or Most Recently Relevant to Health Maintenance [facility] HSN [facility] [place] [address] [place] [address] Care Teams Film Developing Machine Operator Relationship Specialty Start Date End Date Ingrid Wolfe MD [address] [place] [phone] PCP - General Internal Medicine 09/10/22 Nick Castellanos FNP [address] [place] [phone] Nurse Practitioner Family Medicine 07/04/23 Apolonia Mars acute care clinical nurse specialist Rouge MillerOre Grader 11/16/23
--- OUTSIDE RECORDS SUMMARY | 2025-04-16 13:56 | XMS_ITS | Encounter Summary ---
Author Organization [employer] Address [address] [place] [address] [address] [place] [address] Care Team Providers Care Molder Offbearer Name Role Phone Cheryl Fitzpatrick MD Primary Care Provider + Nick Castellanos Unavailable Unavailable Reason for Visit * Reason Comments Med Refill Encounter Details Date Type Department Care Team (Late st Contact Info) Description 09/29/2023 Refill [facility]ICINE [address] [place], [place] [phone] Cheryl Fitzpatrick MD [address] [place], [place] [phone] Anxiety; Migraine with aura and without status [...] Description 06/27/2025 9:00 AM EST Office Visit [facility] OPTOMETRY [address] [place] [address] Salena Garcia, ELLIS [address] [place] [address] documented as of this encounter Goals Goal [...] documented as of this encounter Care Teams Molder Offbearer Relationship Specialty Start Date End Date Cheryl Fitzpatrick MD [address] [place] [address] PCP - General Internal Medicine 09/10/22 Nick Castellanos FNP [address] [place] [address] Nurse Practitioner Family Medicine 07/04/23 [address] Shay Help Desk Assistant 11/11/23 02/10/24 Apolonia Mars hospice care transitions coordinator Help Desk AssistantStock Blender 11/16/23 documented as of this encounter
--- OUTSIDE RECORDS SUMMARY | 2025-04-16 13:56 | XMS_ITS | Encounter Summary ---
Author Organization [employer] Address [address] [place] [address] [address] [place] [address] Care Team Providers Care Computer Instructor Name Role Phone Cheryl Fitzpatrick MD Primary Care Provider + Nick Castellanos Unavailable Unavailable Reason for Visit * Reason Onset Date Comments Accommodation Letter 04/05/2025 Encounter Details Date Type Department Care Team ([facility] st Contact Info) Description 04/05/2025 Telephone [facility] MED[facility]INE [address] [place], [place] [phone] Cheryl Fitzpatrick MD [address] [place], [place] [phone] Accommodation Letter Social History Tobacco Use Types Packs/Day Years [...] encounter Miscellaneous Notes * Telephone Encounter - Argelia Mckeon - 04/12/2025 10:41 AM EDT T from pt requesting status on accomodation letter. Pt was transferred back from HIM. * Telephone Encounter - Richard Sagastume - 04/09/2025 1:05 PM EDT Tc from pt requesting a call back to discuss what else is needed in order to kamryn this letter , she is afraid of missing out on chance for apartment Contact pt at [phone] (estonian) * Telephone Encounter - Jaimee Harding LPN - 04/09/2025 7:01 AM EDT Patient originally requested the document to be completed indicating limited ability to use stairs and a requirement for elevator access. After learning this would result in a longer waiting period for an apartment, she requested the form be revised. Forms nurse corrected the document per her request. Patient presented to Medical Records yesterday requesting another revision, asking for the form to state she can use stairs without limitation. She was informed that the form could not be revised again, as it had already been corrected per her prior request. Patient was advised that a new form would need to be faxed. Patient verbalized understanding. Will await new fax. Encounter closed. * Telephone Encounter - Sandor Mars - 04/05/2025 9:43 AM EDT Tc from pt calling in regards to accommodation letter stating it was written that she is unable to use stairs and is advised to rely on elevators and so fourth. Pt states she can use stairs and is even preferable for her and would like accommodation to be changed. Please contact pt at [phone]. (Romanian Speaker) documented in this encounter Plan of Treatment Upcoming Encounters Date Type Department Care Team (Late st Contact Info) Description 06/27/2025 9:00 AM EST Office Visit [facility] OPTOMETRY [address] [place] [address] Salena Garcia, ELLIS [address] [place] [address] documented as of this encounter Goals Goal Patient Goal Type Associated Problems Recent Progress Patient-Stated? Author Blood Pressure < 140/90 Blood Pressure 110/70(2024 9:50 AM EDT) No Kenzie Tran PharmD Hemoglobin A1c < 7 Result Component 8.2( 5 10:41 AM EDT) No Kenzie Tran, HudsonD documented as of this encounter Visit Diagnoses Not on filedocumented in this encounter Additional Health Concerns Assessment Noted Time PHQ-9 Depression Total Score: 12 025 10:40 AM EDT documented as of this encounter Care Teams Computer Instructor Relationship Specialty Start Date End Date Cheryl Fitzpatrick MD [address] [place] [address] PCP - General Internal Medicine 09/10/22 Nick Castellanos FNP [address] [place] [address] Nurse Practitioner Family Medicine 07/04/23 Apolonia Mars healthcare management consultant Leather Piece InspectorDerrick Car Operator 11/16/23 documented as of this encounter
--- OUTSIDE RECORDS SUMMARY | 2025-04-16 13:56 | XMS_ITS | Encounter Summary ---
Author Organization [employer] Address [address] [facility] 7t [place] [address] Care Team Providers Care Core Java Engineer Name Role Phone Cheryl Fitzpatrick MD Primary Care Provider + Nick Castellanos Unavailable Unavailable Encounter Details Date Type Department Care Team (Latest Contact Info) Description 04/12/2025 Travel Social History Tobacco Use Types Packs/Day Years [...] Description 06/27/2025 9:00 AM EST Office Visit [facility] OPT[facility] [address] [place] [address] Salena Garcia, ELLIS [address] [place] [address] documented as of this encounter Goals Goal [...] documented as of this encounter Care Teams Core Java Engineer Relationship Specialty Start Date End Date Cheryl Fitzpatrick MD [address] [place] [address] PCP - General Internal Medicine 09/10/22 Nick Castellanos FNP [address] [place] [address] Nurse Practitioner Family Medicine 07/04/23 Apolonia Mars lawn care professional Customer Experience Retail ClerkClinical Applications Specialist 11/16/23 documented as of this encounter
--- OUTSIDE RECORDS SUMMARY | 2025-04-16 13:56 | XMS_ITS | Encounter Summary ---
Author Organization [employer] Address [address] [place] [address] 7t [place] [address] Care Team Providers Care Bakery Sales Clerk Name Role Phone Cheryl Fitzpatrick MD Primary Care Provider + Edu Leung PharmD Unavailable [phone] Nick Castellanos EVALUATION SPECIALIST Unavailable Unavailable Encounter Details Date Type Department Care Team (Late st Contact Info) Description 05/18/2023 Abstract [facility] DENTAL [address] [place], [place] [phone] Hema Hill DDS [address] [place], [place] [phone] Social History Tobacco Use Types Packs/Day Years [...] Description 06/27/2025 9:00 AM EST Office Visit [facility] OPTOMETRY [address] [place] [address] Salena Garcia, OD [address] [place] [address] documented as of this encounter Goals Goal Patient Goal Type Associated Problems Recent Progress Patient-Stated? Author Blood Pressure < 140/90 Blood Pressure 110/70(2024 9:50 AM EDT) No Piers-Gambl eFaysa, PharmD Hemoglobin A1c < 7 Result Component 8.2( 10:41 AM EDT) No Piers-Gambl e, Kenzie, PharmD documented as of this encounter Visit Diagnoses Not on filedocumented in this encounter Additional Health Concerns Assessment Noted Time PHQ-9 Depression Total Score: 7 05/09/20 23 1:43 PM EDT documented as of this encounter Care Teams Bakery Sales Clerk Relationship Specialty Start Date End Date Cheryl Fitzpatrick MD [address] [place] [address] PCP - General Internal Medicine 09/10/22 Edu Leung PharmD [address] [place] [address] Pharmacist Internal Medicine 06/14/23 06/28/23 Nick Castellanos FNP [address] [place] [address] Nurse Practitioner Family Medicine 07/04/23 Court Sh[address] Cement Storage Worker 11/11/23 02/10/24 Apolonia Mars client care representative Cement Storage WorkerCarton Gluing Machine Operator 11/16/23 documented as of this encounter
--- OUTSIDE RECORDS SUMMARY | 2025-04-16 13:56 | XMS_ITS | Encounter Summary ---
Author Organization [employer] Address [address] [place] [address] 7t [place] [address] Care Team Providers Care Conveyor Mechanic Name Role Phone Cheryl Fitzpatrick MD Primary Care Provider + Edu Leung PharmD Unavailable [phone] Nick Castellanos ACCOUNTING ADMINISTRATOR Unavailable Unavailable Encounter Details Date Type Department Care Team (Late st Contact Info) Description 11/12/2022 Abstract [facility] MEDICINE 230 [place], [place] [phone] Cheryl Fitzpatrick MD [address] [place], [place] [phone] Social History Tobacco Use Types Packs/Day Years [...] In the last 10 days, have yo eliza been in contact with someone who was confirmed or suspected to have Coronavirus/COVID-19? No / Unsure 11/15/2022 9:48 AM EDT documented as of this encounter Functional Status * Over the past 2 weeks, how often have you been bothered by any of the following problems? Question Answer Date of Assessment Author Little interest or pleasure in doing things More than half the days 11/15/2022 10:11 AM EDT Rosa Aly MA Feeling down, depressed, or hopeless More than half the days 11/15/2022 10:11 AM EDT Rosa Aly MA Patient Health Questionnaire-2 Score 4 11/15/2022 10:11 AM EDT Elham Aly MA * Question Answer Date of Assessment Author Trouble falling or staying asleep, or sleeping too much Several days 11/15/2022 10:11 AM EDT Rosa Aly MA Feeling tired or having little energy Not at all 11/15/2022 10:11 AM EDT Rosa Aly MA Poor appetite or overeating More than half the days 11/15/2022 10:11 AM SRINIVAST Rosa Aly MA Feeling bad about yourself - or that you are a failure or have let yourself or your family down Several days 11/15/2022 10:11 AM SRINIVAST Rosa Aly MA Trouble concentrating on things, such as reading the newspaper or watching television Several days 11/15/2022 10:11 AM SRINIVAST Rosa Aly MA Moving or speaking so slowly that other people could have noticed? Or the opposite - being so fidgety or restless that you have been moving around a lot more than usual. Not at all 11/15/2022 10:11 AM Rosa Dillard MA Thoughts that you would be better off or hurting yourself in some way Not at all 11/15/2022 10:11 AM SRINIVAST Rosa Aly MA Patient Health Questionnaire-9 Score 9 11/15/2022 10:11 AM Rosa Dillard MA * If you checked off any problems on this questionnaire so far, Question Answer Date of Assessment Author How difficult have these problems made it for you to do your work, take care of things at home, or get along with other people? Not difficult at all 11/15/2022 10:11 AM Bella Dillard MA documented as of this encounter Plan of Treatment Upcoming Encounters Date Type Department Care Team (Late st Contact Info) Description 06/27/2025 9:00 AM EST Office Visit [facility] OPTOMETRY [address] [place] [address] Salena Garcia OD [address] [place] [address] documented as of this encounter Visit Diagnoses Not on filedocumented in this encounter Additional Health Concerns Assessment Noted Time PHQ-9 Depression Total Score: 19 023 9:39 AM EST documented as of this encounter Care Teams Conveyor Mechanic Relationship Specialty Start Date End Date Cheryl Fitzpatrick MD [address] [place] [address] PCP - General Internal Medicine 09/10/22 Edu Leung, HudsonD [address] [place] [address] Pharmacist Internal Medicine 06/14/23 06/28/23 Nick Castellanos FNP [address] [place] [address] Nurse Practitioner Family Medicine 07/04/23 Court Shay Mine Technician 11/11/23 02/10/24 Apolonia Mars career development engineer Mine TechnicianMeter Calibrator 11/16/23 documented as of this encounter
--- OUTSIDE RECORDS SUMMARY | 2025-04-16 13:56 | XMS_ITS | Encounter Summary ---
Author Organization [employer] Address [address] [place] [address] 7t [place] [address] Care Team Providers Care Remote Sensing Research Scientist Name Role Phone Cheryl Fitzpatrick MD Primary Care Provider + Edu Leung PharmD Unavailable Nick Castellanos ASSEMBLER CARBON BRUSHES Unavailable Unavailable Reason for Visit * Reason Comments Med Refill Encounter Details Date Type Department Care Team (Late st Contact Info) Description 10/05/2022 Refill [facility] [address] [place] [address] [phone] Name, MD Pradeep [address] [place] [address] Type 2 diabetes mellitus with hyperglycemia, with long-term current use of insulin ([facility]); Anxiety Social History Tobacco Use Types Packs/Day [...] Office Visit [facility] OPTOMETRY [address] [place] [address] Salena Garcia, OD [address] [place] [address] documented as of this encounter Visit Diagnoses Diagnosis Type 2 diabetes mellitus with hyperglycemia, with long-term current use of insulin ([facility]) Anxiety Anxiety state, unspecified documented in this encounter Additional Health Concerns Assessment Noted Time PHQ-9 Depression Total Score: 19 023 9:39 AM EST documented as of this encounter Care Teams Remote Sensing Research Scientist Relationship Specialty Start Date End Date Cheryl Fitzpatrick MD [address] [place] [address] PCP - General Internal Medicine 09/10/22 Edu Leung PharmD [address] [place] [address] Pharmacist Internal Medicine 06/14/23 06/28/23 Nick Castellanos FNP [address] [place] [address] Nurse Practitioner Family Medicine 07/04/23 [address] Appliquer Zigzag 11/11/23 02/10/24 Apolonia Mars primary care nurse practitioner Appliquer ZigzagStreet Sweeper 11/16/23 documented as of this encounter
--- OUTSIDE RECORDS SUMMARY | 2025-04-16 13:56 | XMS_ITS | Encounter Summary ---
Author Organization [employer] Address [address] [place] [address] 7t [place] [address] Care Team Providers Care Director Correctional Agency Name Role Phone Cheryl Fitzpatrick MD Primary Care Provider + Nick Castellanos Unavailable Unavailable Reason for Visit * Reason Comments Med Refill Encounter Details Date Type Department Care Team (Late st Contact Info) Description 09/29/[address] [facility] [address] [place] [address] Nick Castellanos FNP Type 2 diabetes mellitus with hyperglycemia, with long-term current use of insulin ([facility]) Social History Tobacco Use Types [...] 9:00 AM EST Office Visit [facility] OPTOMETRY [address] [place] [address] Salena Garcia OD [address] [place] [address] documented as of this encounter Goals Goal [...] hyperglycemia, with long-term current use of insulin ([facility]) documented in this encounter Additional Health Concerns Assessment Noted Time PHQ-9 Depression Total Score: 8 08/23/19 24 11:27 AM EST documented as of this encounter Care Teams Director Correctional Agency Relationship Specialty Start Date End Date Cheryl Fitzpatrick MD [address] [place] [address] PCP - General Internal Medicine 09/10/22 Nick Castellanos FNP [address] [place] [address] Nurse Practitioner Family Medicine 07/04/23 [address] Sh[address] Net Mender 11/11/23 02/10/24 Apolonia Mars care management coordinator Net MenderFurniture Sales Consultant 11/16/23 documented as of this encounter
--- OUTSIDE RECORDS SUMMARY | 2025-04-16 13:56 | XMS_ITS | Encounter Summary ---
Author Organization [employer] Address [address] [place] [address] 7t [place] [address] Care Team Providers Care Net Fisher Name Role Phone Cheryl Fitzpatrick MD Primary Care Provider + Eud Leung PharmD Unavailable Nick Castellanos QUALITY CONTROL INDUSTRIAL ENGINEER Unavailable Unavailable Reason for Visit * Reason Comments Med Refill Encounter Details Date Type Department Care Team (Late st Contact Info) Description 12/18/2022 Refill [facility] [address] [place] [address] Marybel Webster MD [address] [place] [address] Social History Tobacco Use Types Packs/Day Years [...] Description 06/27/2025 9:00 AM EST Office Visit [facility] OPTOMETRY [address] [place] [address] Salena Garcia, ELLIS [address] [place] [address] documented as of this encounter Visit Diagnoses Not on filedocumented in this encounter Additional Health Concerns Assessment Noted Time PHQ-9 Depression Total Score: 9 11/16/19 10:11 AM EDT documented as of this encounter Care Teams Net Fisher Relationship Specialty Start Date End Date Cheryl Fitzpatrick MD [address] [place] [address] PCP - General Internal Medicine 09/10/22 Edu Leung, Merari [address] [place] [address] Pharmacist Internal Medicine 06/14/23 06/28/23 Nick Castellanos FNP [address] [place] [address] Nurse Practitioner Family Medicine 07/04/23 [address] Thermostat Maker 11/11/23 02/10/24 Apolonia Mars director of critical care Thermostat MakerData Storage Specialist 11/16/23 documented as of this encounter
--- OUTSIDE RECORDS SUMMARY | 2025-04-16 13:56 | XMS_ITS | Encounter Summary ---
Author Organization [employer] Address [address] [place] [address] 7t [place] [address] Care Team Providers Care Behavioral Health Consultant Name Role Phone Cheryl Fitzpatrick MD Primary Care Provider + Nick Castellanos Unavailable Unavailable Encounter Details Date Type Department Care Team (Late st Contact Info) Description 03/28/2025 Telephone [facility] MEDICINE [address] [place], [place] [phone] Cheryl Fitzpatrick MD [address] [place], [place] [phone] Social History Tobacco Use Types Packs/Day Years [...] Description 06/27/2025 9:00 AM EST Office Visit [facility] OPTOMETRY [address] [place] [address] Salena Garcia, ELLIS [address] [place] [address] documented as of this encounter Goals Goal Patient Goal Type Associated Problems Recent Progress Patient-Stated? Author Blood Pressure < 140/90 Blood Pressure 110/70(2024 9:50 AM EDT) No YongsKenzie Pineda, PharmD Hemoglobin A1c < 7 Result Component 8.2( 10:41 AM EDT) No YnogsKenzie Pineda, PharmD documented as of this encounter Visit Diagnoses Not on filedocumented in this encounter Additional Health Concerns Assessment Noted Time PHQ-9 Depression Total Score: 12 025 10:40 AM EDT documented as of this encounter Care Teams Behavioral Health Consultant Relationship Specialty Start Date End Date Cheryl Fitzpatrick MD [address] [place] [address] PCP - General Internal Medicine 09/10/22 Nick Castellanos FNP [address] [place] [address] Nurse Practitioner Family Medicine 07/04/23 Apolonia Mars field care coordinator Blood Or Blood Bank TechnicianProfessor Of Management 11/16/23 documented as of this encounter
--- OUTSIDE RECORDS SUMMARY | 2025-04-16 13:56 | XMS_ITS | Encounter Summary ---
Author Organization [employer] Address [address] [place] [address] 7t [place] [address] Care Team Providers Care Extension Service Agent Name Role Phone Cheryl Fitzpatrick MD Primary Care Provider + Edu Leung PharmD Unavailable [phone] Nick Castellanos COMMAND POST CRAFTSMAN Unavailable Unavailable Encounter Details Date Type Department Care Team (Late st Contact Info) Description 10/05/2022 Orders Only [facility] [address] [place], [place] [phone] Cheryl Fitzpatrick MD [address] [place], [place] [phone] Fibromyalgia (Primary Dx); Migraine with aura and [facility] [address] [place] [address] Salena Garcia, ELLIS [address] [place] [address] documented as of this encounter Visit Diagnoses Diagnosis Fibromyalgia- Primary Unspecified myalgia and myositis Migraine with aura and without status migrainosus, not intractable documented in this encounter Additional Health Concerns Assessment Noted Time PHQ-9 Depression Total Score: 19 023 9:39 AM EST documented as of this encounter Care Teams Extension Service Agent Relationship Specialty Start Date End Date Cheryl Fitzpatrick MD [address] [place] [address] PCP - General Internal Medicine 09/10/22 Edu Leung PharmD [address] [place] [address] Pharmacist Internal Medicine 06/14/23 06/28/23 Nick Castellanos FNP [address] [place] [address] Nurse Practitioner Family Medicine 07/04/23 [address] Gerontology Aide 11/11/23 02/10/24 Apolonia Mars care worker Gerontology AideBiochemical Engineer 11/16/23 documented as of this encounter
--- OUTSIDE RECORDS SUMMARY | 2025-04-16 13:56 | XMS_ITS | Encounter Summary ---
Author Organization [employer] Address [address] [place] [address] 7t [place] [address] Care Team Providers Care Corner Brace Block Machine Operator Name Role Phone Cheryl Fitzpatrick MD Primary Care Provider + Nick Castellanos Unavailable Unavailable Reason for Visit * Reason Comments Med Refill Encounter Details Date Type Department Care Team (Late st Contact Info) Description 09/29/2023 Refill [facility] MEDICINE [address] [place], [place] [phone] Cheryl Fitzpatrick MD [address] [place], [place] [phone] Anxiety; Migraine with aura and without status [...] Description 06/27/2025 9:00 AM EST Office Visit [facility] OPTOMETRY [address] [place] [address] Salena Garcia, ELLIS [address] [place] [address] documented as of this encounter Goals Goal [...] documented as of this encounter Care Teams Corner Brace Block Machine Operator Relationship Specialty Start Date End Date Cheryl Fitzpatrick MD [address] [place] [address] PCP - General Internal Medicine 09/10/22 Nick Castellanos FNP [address] [place] [address] Nurse Practitioner Family Medicine 07/04/23 [address] Hr Generalist 11/11/23 02/10/24 Apolonia Mars pediatric care coordinator Hr GeneralistFrame Tender 11/16/23 documented as of this encounter
--- OUTSIDE RECORDS SUMMARY | 2025-04-16 13:56 | XMS_ITS | Encounter Summary ---
Author Organization [employer] Address [address] [place] [address] 7t [place] [address] Care Team Providers Care Windows Server Architect Name Role Phone Cheryl Fitzpatrick MD Primary Care Provider + Edu Leung PharmD Unavailable Nick Castellanos ENGLISH COMPOSITION TEACHER Unavailable Unavailable Reason for Visit * Reason Onset Date Comments call back 10/05/2022 Encounter Details Date Type Department Care Team (Late st Contact Info) Description 10/05/2022 Telephone [facility] MEDICINE 230 [place], [place] [phone] Cheryl Fitzpatrick MD [address] [place], [place] [phone] call back Social History Tobacco Use Types [...] Miscellaneous Notes * Telephone Encounter - Edin Whitley - 10/05/2022 9:56 AM EST Tc from pt returning call. Pt requesting a call back documented in this encounter Plan of Treatment Upcoming Encounters Date Type Department Care Team (Late st Contact Info) Description 06/27/2025 9:00 AM EST Office Visit [facility] OPTOMETRY [address] [place] [address] Salena Garcia, OD [address] [place] [address] documented as of this encounter Visit Diagnoses Not on filedocumented in this encounter Additional Health Concerns Assessment Noted Time PHQ-9 Depression Total Score: 19 023 9:39 AM EST documented as of this encounter Care Teams Windows Server Architect Relationship Specialty Start Date End Date Cheryl Fitzpatrick MD [address] [place] [address] PCP - General Internal Medicine 09/10/22 Edu Leung PharmD [address] [place] [address] Pharmacist Internal Medicine 06/14/23 06/28/23 Nick Castellanos FNP [address] [place] [address] Nurse Practitioner Family Medicine 07/04/[address] Reel And Rewinder Operator 11/11/23 02/10/24 Apolonia Mars direct care provider Reel And Rewinder OperatorSub Master 11/16/23 documented as of this encounter
--- OUTSIDE RECORDS SUMMARY | 2025-04-16 13:56 | XMS_ITS | Encounter Summary ---
Author Organization [employer] Address [address] [place] [address] 7t [place] [address] Care Team Providers Care Dental Treatment Coordinator Name Role Phone Cheryl Fitzpatrick MD Primary Care Provider + Edu Leung PharmD Unavailable Nick Castellanos CAPACITOR INSPECTOR Unavailable Unavailable Reason for Visit * Reason Comments Med Refill Encounter Details Date Type Department Care Team (Late st Contact Info) Description 12/09/2022 Refill [facility] MEDICINE [address] [place], [place] [phone] Cheryl Fitzpatrick MD [address] [place], [place] [phone] Type 2 diabetes mellitus with hyperglycemia, with long-term current use of insulin ([facility]); Anxiety Social History Tobacco Use [...] 06/27/2025 9:00 AM EST Office Visit [facility] OPTOMETRY [address] [place] [address] Salena Garcia, OD [address] [place] [address] documented as of this encounter Visit Diagnoses Diagnosis Type 2 diabetes mellitus with hyperglycemia, with long-term current use of insulin ([facility]) Anxiety Anxiety state, unspecified documented in this encounter Additional Health Concerns Assessment Noted Time PHQ-9 Depression Total Score: 9 11/16/19 10:11 AM EDT documented as of this encounter Care Teams Dental Treatment Coordinator Relationship Specialty Start Date End Date Cheryl Fitzpatrick MD [address] [place] [address] PCP - General Internal Medicine 09/10/22 Edu Leung PharmD [address] [place] [address] Pharmacist Internal Medicine 06/14/23 06/28/23 Nick Castellanos FNP [address] [place] [address] Nurse Practitioner Family Medicine 07/04/23 [address] Sh[address] Rn Anesthetist 11/11/23 02/10/24 Apolonia Mars rehab care assistant Rn AnesthetistCopier Technician 11/16/23 documented as of this encounter
--- OUTSIDE RECORDS SUMMARY | 2025-04-16 13:56 | XMS_ITS | Encounter Summary ---
Author Organization [employer] Address [address] [place] [address] 7t [place] [address] Care Team Providers Care Vegetable Scullion Name Role Phone Cheryl Fitzpatrick MD Primary Care Provider + Nick Castellanos Unavailable Unavailable Encounter Details Date Type Department Care Team (Late st Contact Info) Description 04/16/2025 Orders Only GENERIC EXTERNAL DATA DEPARTMENT Provider, Generic External Data Social History Tobacco Use Types Packs/Day Years [...] Description 06/27/2025 9:00 AM EST Office Visit [facility] OPTOMETRY [address] [place] [address] Salena Garcia, ELLIS [address] [place] [address] documented as of this encounter Goals Goal [...] TO CULTURE Routine 04/16/2025 11:54 AM EDT HIGH SENSITIVITY TROPONIN I Routine 04/16/2025 11:46 AM EDT CBC WITH AUTO DIFFERENTIAL Routine 04/16/2025 11:46 AM EDT HCG, TOTAL, QN Routine 04/16/2025 11:46 AM EDT MAGNESIUM Routine 04/16/2025 11:46 AM EDT CREATINE KINASE, TOTAL Routine 11:46 AM EDT COMPREHENSIVE METABOLIC PANEL Routine 04/16/2025 11:46 AM EDT INFLUENZA A B2 ID NOW ([employer]) Routine 04/16/2025 10:48 AM EDT STREP A NUCLEIC ACID Routine 04/16/2025 10:48 AM EDT COVID-19 ID NOW ([employer] Around You) Routine 04/16/2025 10:48 AM EDT documented in this encounter Results * (ABNORMAL) Urinalysis, Complete, with Reflex to Culture (04/16/2025 11:54 AM EDT) Color Urine Yellow [facility] Appearance Urine Clear [facility] PH 5.5 5.0 - 9.0 [facility] Glucose Urine UA >=1000(A) Negative mg/dL [facility] Urine Blood Negative Negative [facility] Specific [place] - Urine >=1.030(H) 1.005 - 1.025 [facility] Urine Protein Negative Neg-Trace mg/dL [facility] Urine Ketones Trace Negative mg/dL [facility] Nitrite Urine Negative Negative [facility] Leukocyte Esterase Urine Negative Negative [facility] RBC Urine 0-2 0 - 2 /HPF [facility] Urine WBC 6-10(A) 0 - 5 /HPF [facility] Urine Squamous Epithelial Cell 0-2 0 - 2 /HPF [facility] Urine Bacteria None Seen None Seen [facility] Hyaline Casts, Urine 3-5 0 - 2 /LPF [facility] 04/16/2025 11:5 4 AM EDT 04/16/2025 12:13 PM EDT Narrative [facility] - 04/16/2025 12:23 PM EDT [id number], Clean Catch Generic External Data Provider LAB URINE ORDERAB LES Final Result Performing Organization Address City/[facility]/ZIP Co de Phone Number [facility] [address] [place] [address] [phone] * hCG, Total, Quantitative (04/16/2025 11:46 AM EDT) HCG Quantitative <2 mIU/mL [facility] Comment:Weeks post LMP Appro ximate hCG(Last Menstrual Period) Range (mIU/ml)3 - 4 weeks 9 - 1304 - 5 weeks 75 - 2,6005 - 6 weeks 850 - 20,8006 - 7 weeks 4000 - 100,2007 - 12 weeks 11,500 - 289,33885 - 16 weeks 18,300 - 137,74073 - 29 weeks (2nd trimester) 1,400 - 53,30000 - 41 weeks (3rd trimester) 940 - 60,000The Abdul B- hCG assay is used for the [...] ORDERAB LES Final Result Performing Organization Address City/[facility]/ZIP Co de Phone Number [facility] [address] [place] [address] [phone] * High Sensitivity Troponin I (04/16/2025 11:46 AM EDT) Pathologist [facility] TROPONIN I HIGH SENSITIVITY <2.7 <3.5 - 17.0 ng/L [facility] Comment:The Abudl high sens itivity Troponin-I results should beused in conjunction with other diagnostic information suchas ECG, clinical observations and information, and patientsymptoms to aid in the diagnosis of PA. 04/16/2025 11:4 6 AM EDT 04/16/2025 11:50 AM EDT Generic External Data Provider LAB BLOOD ORDERAB LES Final Result Performing Organization Address City/[facility] Co de Phone Number [facility] [address] [place] [phone] * (ABNORMAL) Creatine Kinase, Total (04/16/2025 11:46 AM EDT) Creatine Kinase Total 393(H) 26 - 140 U/L [facility] 04/16/2025 11:4 6 AM EDT 04/16/2025 11:50 AM EDT Generic External Data Provider LAB BLOOD ORDERAB LES Final Result Performing Organization Address [facility] [place] Phone Number [facility] [address] [place] [phone] * Magnesium (04/16/2025 11:46 AM EDT) Magnesium 2.1 1.6 - 2.6 mg/dL [facility] 04/16/2025 11:4 6 AM EDT 04/16/2025 11:50 AM EDT Generic External Data Provider LAB BLOOD ORDERAB LES Final Result Performing Organization Address [facility] Phone Number [facility] [address] [place] [phone] * (ABNORMAL) Comprehensive Metabolic Panel (04/16/2025 11:46 AM EDT) Sodium 138 135 - 145 mmol/L [facility] Potassium 3.7 3.3 - 5.1 mmol/L [facility] Chloride 108 96 - 108 mmol/L [facility] Carbon Dioxide 22 22 - 29 mmol/L [facility] Anion Gap 12 12 - 20 [facility] Urea Nitrogen (BUN) 13 9 - 16 mg/dL [facility] Creatinine, Serum 0.55 0.5 - 1.4 mg/dL [facility] Creatinine Clr Calc Pharmacy 138.6 [facility] Comment:Provided height and weight: 167.64 cm,88.451 kg.eGFR (calculated from the MDRD study equation) and eCrCl(calculated from the Cockcroft-Gault equation) are based ondifferent parameters and may not yield comparable results.If eCrCl result is absurd, please check patient'sheight/weight. Estimated Glomerular Filt Rate >60 [facility] Comment:Chronic Kidney Disea se: Estimated GFR < 60 mL/min/1.87a5Chgquh Kidney Disease: Estimated GFR < 15 mL/min/1.73m2 Glucose 152(H) 60 - 115 mg/dL [facility] Calcium 9.2 8.4 - 10.2 mg/dL [facility] Bilirubin, Total 0.2 0.0 - 1.0 mg/dL [facility] Aspartate Amino Transferase 33(H) 5 - 31 U/L [facility] Alanine Aminotransferase 51(H) 0 - 31 U/L [facility] Total Protein 7.2 6.5 - 8.0 g/dL [facility] Albumin Level 4.6 3.5 - 5.0 g/dL [facility] Alkaline Phosphatase 84 39 - 117 U/L [facility] 04/16/2025 11:4 6 AM EDT 04/16/2025 11:50 AM EDT us Generic External Data Provider LAB BLOOD ORDERAB LES Final Result [facility] [address] [place] [phone] * CBC auto differential (04/16/2025 11:46 AM EDT) White Blood Count 6.2 4.8 - 10.8 X10*3/uL [facility] Red Blood Count 4.71 4.20 - 5.50 X10*6/uL [facility] Hemoglobin 13.8 12.0 - 16.0 g/dl [facility] Hematocrit 40.9 37.0 - 47.0 % [facility] Mean Corpuscular Volume 86.8 80.0 - 98.0 fL [facility] Mean Corpuscular Hemoglobin 29.3 27.0 - 33.0 pg [facility] Mean Corpuscular HGB Conc 33.7 31.0 - 35.0 g/dl [facility] Red Cell Distribution Width 14.4 11.0 - 16.0 % [facility] Platelet Count 288 160 - 400 X10*3/uL [facility] Mean Platelet Volume 10.2 9.4 - 12.3 fL [facility] Neutrophils Percent Auto 55.0 45 - 73 % [facility] Imm Gran Pct Auto 0.2 0.0 - 0.4 % [facility] Lymphocytes Percent Auto 34.7 20 - 40 % [facility] Monocytes Percent Auto 6.5 2 - 11 % [facility] Eosinophils Percent Auto 2.8 0 - 4 % [facility] Basophils Percent Auto 0.8 0 - 2 % [facility] NRBC Pct Auto 0.0 0.0 - 0.2 /100WBC [facility] Neutrophils Absolute Auto 3.4 2.0 - 8.3 x10*3/uL [facility] Imm Gran Abs Auto 0.01 0.00 - 0.03 X10*3/uL [facility] Lymphocytes Absolute Auto 2.1 1.2 - 4.9 X10*3/uL [facility] Monocytes Absolute Auto 0.4 0.1 - 1.2 X10*3/uL [facility] Eosinophils Absolute Auto 0.2 0.0 - 0.4 X10*3/uL [facility] Basophils Absolute Auto 0.1 0.0 - 0.2 X10*3/uL [facility] NRBC Abs Auto 0.000 0.0 - 0.012 X10*3/uL [facility] 04/16/2025 11:4 6 AM EDT 04/16/2025 11:50 AM EDT Generic External Data Provider LAB BLOOD ORDERAB LES Final Result Performing Organization Address [facility] Co de Phone Number [facility] [address] [place] [address] [phone] * Influenza A B2 ID NOW (Abdul) (04/16/2025 10:48 AM EDT) IDNOW SERIAL# [id number] [facility] Influenza A Negative Negative [facility] Influenza B2 Negative Negative [facility] Influenza A B2 Note See Note [facility] Comment:The Abdul ID NOW In fluenza A B2 test [...] EDT us Generic External Data Provider LAB MICROBIOLOGY - GENERAL ORDERABLES Final Result Performing Organization Address [facility] Co de Phone Number [facility] [address] [place] [phone] * Strep A Nucleic Acid (04/16/2025 10:48 AM EDT) IDNOW SERIAL# [id number] [facility] Strep A Nucleic Acid Negative Negative [facility] Comment:All test results mus t be correlated with clinical findings.This test has not been evaluated for monitoring treatment ofinfection.Additional follow-up testing using the culture method isrequired if the result is negative and clinical symptomspersist, or in the event of an acute rheumatic feveroutbreak. 04/16/2025 10:4 8 AM EDT 04/16/2025 10:53 AM EDT us Generic External Data Provider LAB MICROBIOLOGY - GENERAL ORDERABLES Final Result [facility] [address] [place] [phone] * COVID-19 ID NOW ([employer]) (04/16/2025 10:48 AM EDT) IDNOW SERIAL# [id number] [facility] COVID-19 TEST Negative Negative [facility] COVID-19 NOTE See Note [facility] Comment: Results are for the identification of SARS-CoV2 RNA. TheSARS-CoV2 RNA is generally detectable in respiratory samplesduring the acute phase of infection. Positive results areindicative of the presence of SARS-CoV-2 RNA; clinicalcorrelation with patient history and other diagnosticinformation is necessary to determine patient infectionstatus. Positive results do not rule out bacterial infectionor co- infection with other viruses.Testing facilities within the [facility] and itsterritories are required to report all [...] use by authorized laboratories.Testing performed on the [employer] ID NOW utilizing NAAT. 04/16/2025 10:4 8 AM EDT 04/16/2025 10:53 AM EDT us Generic External Data Provider LAB MOLECULAR ERIC GNOSTICS ORDERABLES Final Result [facility] [address] [place] [phone] documented in this encounter Visit Diagnoses Not on filedocumented in this encounter Additional Health Concerns Assessment Noted Time PHQ-9 Depression Total Score: 12 025 10:40 AM EDT documented as of this encounter Care Teams Vegetable Scullion Relationship Specialty Start Date End Date Cheryl Fitzpatrick MD [address] [place] [phone] PCP - General Internal Medicine 09/10/22 Nick Castellanos FNP [address] [place] [address] Nurse Practitioner Family Medicine 07/04/23 Apolonia Mars personal care service provider Drilling InspectorGas Plant Worker 11/16/23 documented as of this encounter
--- OUTSIDE RECORDS SUMMARY | 2025-04-16 13:56 | XMS_ITS | Encounter Summary ---
Author Organization [employer] Address [address] [place] [address] 7t [place] [address] Care Team Providers Care Gas Line Installer Supervisor Name Role Phone Cheryl Fitzpatrick MD Primary Care Provider + Edu Leung PharmD Unavailable Nick Castellanos EXAM PROCTOR Unavailable Unavailable Reason for Visit * Reason Onset Date Comments cancelling appt with OS 04/19/2023 Encounter Details Date Type Department Care Team (Late st Contact Info) Description 04/19/2023 Telephone [facility] ADULT DENTAL [address] [place], [place] [phone] Hema Hill DDS [address] [place], [place] [phone] cancelling appt with OS Social History Tobacco [...] to be cancelled. Reached out to oral senior scheduler but could not reach her DR documented in this encounter Plan of Treatment Upcoming Encounters Date Type Department Care Team (Late st Contact Info) Description 06/27/2025 9:00 AM EST Office Visit [facility] OPTOMETRY [address] [place] [address] Salena Garcia, ELLIS [address] [place] [address] documented as of this encounter Goals Goal [...] Noted Time PHQ-9 Depression Total Score: 12 08/ 023 10:04 AM EDT documented as of this encounter Care Teams Gas Line Installer Supervisor Relationship Specialty Start Date End Date Cheryl Fitzpatrick MD [address] [place] [address] PCP - General Internal Medicine 09/10/22 Edu Leung, Merari [address] [place] [address] Pharmacist Internal Medicine 06/14/23 06/28/23 Nick Castellanos FNP [address] [place] [address] Nurse Practitioner Family Medicine 07/04/23 [address] Zipper Trimmer Hand 11/11/23 02/10/24 Apolonia Mars vocational childcare teacher Zipper Trimmer HandFirer Locomotive Crane 11/16/23 documented as of this encounter
--- OUTSIDE RECORDS SUMMARY | 2025-04-16 13:56 | XMS_ITS | Encounter Summary ---
Author Organization [employer] Address [address] [place] [address] 7t [place] [address] Care Team Providers Care Lie Detector Operator Name Role Phone Cheryl Fitzpatrick MD Primary Care Provider + Nick Castellanos Unavailable Unavailable Reason for Visit * Reason Onset Date Comments Created in error 03/20/2024 Encounter Details Date Type Department Care Team (Late st Contact Info) Description 03/20/2024 Telephone [facility] MEDICINE [address] [place], [place] [phone] Cheryl Fitzpatrick MD [address] [place], [place] [phone] Created in error Social History Tobacco Use [...] with others, in a hotel, in a fci, living outside on the street, on a [...] 9:00 AM EST Office Visit [facility] OPTOMETRY [address] [place] [address] Salena Garcia, ELLIS [address] [place] [address] documented as of this encounter Goals Goal [...] documented as of this encounter Care Teams Lie Detector Operator Relationship Specialty Start Date End Date Cheryl Fitzpatrick MD [address] [place] [address] PCP - General Internal Medicine 09/10/22 Nick Castellanos FNP [address] [place] [address] Nurse Practitioner Family Medicine 07/04/23 Apolonia Mars care transition mgr Office MoverWasher Assembler 11/16/23 documented as of this encounter
--- OUTSIDE RECORDS SUMMARY | 2025-04-16 13:56 | XMS_ITS | Encounter Summary ---
Author Organization [employer] Address [address] [place] [address] 7t [place] [address] Care Team Providers Care Corporate Analyst Name Role Phone Cheryl Fitzpatrick MD Primary Care Provider + Nick Castellanos Unavailable Unavailable Reason for Visit * Reason Onset Date Comments Paperwork/Forms 10/19/2023 Encounter Details Date Type Department Care Team (Late st Contact Info) Description 10/19/2023 Telephone [facility] MEDICINE [address] [place], [place] [phone] Cheryl Fitzpatrick MD [address] [place], [place] [phone] Paperwork/Forms Social History Tobacco Use Types Packs/Day [...] to welfare before they close her case. At Home Independent Call Center Agent advised pt she has an appointment this Tuesday (10/19) with provider. Please contact pt at [phone] (Estonian) documented in this encounter Plan of Treatment Upcoming Encounters Date Type Department Care Team ([facility] st Contact Info) Description 06/27/2025 9:00 AM EST Office Visit [facility] OPTOMETRY [address] [place] [phone] Salena Garcia, OD [address] [place] [address] documented as of this encounter Goals Goal [...] documented as of this encounter Care Teams Corporate Analyst Relationship Specialty Start Date End Date Cheryl Fitzpatrick MD [address] [place] [address] PCP - General Internal Medicine 09/10/22 Nick Castellanos FNP [address] [place] [address] Nurse Practitioner Family Medicine 07/04/23 [address] Sh[address] Behavioral Health Worker 11/11/23 02/10/24 Apolonia Mars care transition manager Behavioral Health WorkerAircraft Engine Cylinder Mechanic 11/16/23 documented as of this encounter
--- OUTSIDE RECORDS SUMMARY | 2025-04-16 13:56 | XMS_ITS | Encounter Summary ---
Author Organization [employer] Address [address] [place] [address] [address] [place] [address] Care Team Providers Care Juvenile Probation Officer Name Role Phone Cheryl Fitzpatrick MD Primary Care Provider + Nick Castellanos Unavailable Unavailable Reason for Visit * Reason Onset Date Comments PT1 03/15/2024 Encounter Details Date Type Department Care Team (Late st Contact Info) Description 03/15/[address] [facility] MEDICINE [address] [place], [place] [phone] Cheryl Fitzpatrick MD [address] [place], [place] [phone] PT1 Social History Tobacco Use Types Packs/Day [...] with others, in a hotel, in a jail, living outside on the street, on a [...] states is homeless and is currently at [address] [place] [phone] Provider name or facility name: [facility] physical therapy Facility Address: [address] [place] [address] Escort needed: Y/N: No Do you have a wheelchair: Y/N: No If yes- Manual or electric: no Visits: 5-6 visit a month documented in this encounter Plan of Treatment Upcoming Encounters Date Type Department Care Team ([facility] st Contact Info) Description 06/27/2025 9:00 AM EST Office Visit [facility] OPTOMETRY [address] [place] [address], [place] [address] Salena Garcia, OD [address] [place] [address] documented as of this encounter Goals Goal [...] documented as of this encounter Care Teams Juvenile Probation Officer Relationship Specialty Start Date End Date Cheryl Fitzpatrick MD [address] [place] [address] PCP - General Internal Medicine 09/10/22 Nick Castellanos FNP [address] [place] [address] Nurse Practitioner Family Medicine 07/04/23 Apolonia Mars day care home mother CannoneerPortable Machine Sander 11/16/23 documented as of this encounter
--- OUTSIDE RECORDS SUMMARY | 2025-04-16 13:56 | XMS_ITS | Encounter Summary ---
Author Organization [employer] Address [address] [place] [address] [address] [place] [address] Care Team Providers Care Quality Control Head Name Role Phone Cheryl Fitzpatrick MD Primary Care Provider + Nick Castellanos Unavailable Unavailable Reason for Visit * Reason Onset Date Comments PT-1 04/16/2024 Encounter Details Date Type Department Care Team (Late st Contact Info) Description 04/16/2024 Telephone [facility] MEDICINE [address] [place], [place] [phone] Cheryl Fitzpatrick MD [address] [place], [place] [phone] PT-1 Social History Tobacco Use Types Packs/Day [...] Y/N: Yes Provider name or facility name: [facility] Physical Therapy - [place] [address] Facility Address: [address] [place] [address] [facility]: Y/N: No Do you have a wheelchair: Y/N: No If yes- Manual or electric: no Visits 6 documented in this encounter Plan of Treatment Upcoming Encounters Date Type Department Care Team (Late st Contact Info) Description 06/27/2025 9:00 AM EST Office Visit [facility] OPTOMETRY [address] [place] [address] [phone] Salena Garcia, OD [address] [place] [address] documented as of this encounter Goals Goal [...] documented as of this encounter Care Teams Quality Control Head Relationship Specialty Start Date End Date Cheryl Fitzpatrick MD [address] [place] [address] PCP - General Internal Medicine 09/10/22 Nick Castellanos FNP [address] [place] [address] Nurse Practitioner Family Medicine 07/04/23 Apolonia Mars healthcare insurance sales agent Family Preservation CaseworkerCigarette Lighter Repairer 11/16/23 documented as of this encounter
[2025-04-16 16:02] VITALS: BP 134/74; PULSE 84; RESP 16; TEMP 36.8; O2SAT 96
[2025-04-16 16:11] VITALS: BP 134/74; PULSE 84; RESP 16; TEMP 36.8; O2SAT 96
== END 2025-04-16 16:12 | disposition home or self-care (01) ==
PROVIDERS: Physician Assistant; Emergency Provider Emergency Medicine; PCP Internal Medicine
DX: M79.10 Myalgia, unspecified site (principal); M25.512 Pain in left shoulder; M25.511 Pain in right shoulder; R42 Dizziness and giddiness; R94.31 Abnormal electrocardiogram [ECG] [EKG]; E11.9 Type 2 diabetes mellitus without complications; Z79.4 Long term (current) use of insulin; Z79.899 Other long term (current) drug therapy; Z11.52 Encounter for screening for COVID-19
CPT/HCPCS: 36415; 73030; 80053; 81001; 82550; 83735; 84484; 84702; 85025; 87086; 87502; 87635; 87651; 93005; 96372; 99284; 99285; J1885

== ENCOUNTER → 2025-04-16 11:26 | Outpatient (BNV) | payer MEDICAID, SELFPAY | PROVIDERS: Emergency Provider Emergency Medicine; PCP Internal Medicine; Visit Provider Internal Medicine | DX: R94.31 Abnormal electrocardiogram [ECG] [EKG] (principal); R42 Dizziness and giddiness | CPT/HCPCS: 93010 ==

== ENCOUNTER → 2025-04-16 14:17 | Outpatient (BNV) | payer MEDICAID, SELFPAY | PROVIDERS: Emergency Provider Emergency Medicine; PCP Internal Medicine; Visit Provider Radiology Diagnostic Radiology | DX: M25.512 Pain in left shoulder (principal); M25.511 Pain in right shoulder | CPT/HCPCS: 73030 ==

== ENCOUNTER 2025-04-18 11:19 | Emergency (ER) | payer MEDICAID, SELFPAY ==
[2025-04-18 11:53] VITALS: BP 106/58; PULSE 96; RESP 18; O2SAT 96; BMI 29.0
--- NOTE | 2025-04-18 12:01 | ED.EXTPRO ---
HPI - Extremity Problem General Chief complaint: Extremity Injury, Upper Stated complaint: Pain both arms Time Seen by Provider: 04/18/25 12:00 Source: patient and RN notes reviewed Mode of arrival: ambulatory Limitations: no limitations History of Present Illness ED Provider: Ernestina Mackey PA-C HPI Narrative: This is a [id number] who presents to the ER with concerns for chronic bilateral shoulder pain for several months. Pt was seen here two days ago where she had an extensive workup and was found to have arthritis in her shoulders. Pt reports that she had good relief with the toradol injection that she had and would like to have the same injection today as no other medication has helped her. She states that she also noticed increased redness, and pain under her right armpit. She denies any fevers, chills, chest pain, shortness of breath, abdominal pain, nausea, vomiting or diarrhea. She states that she has called the orthopedic office and is awaiting an appointment. Denies any other complaints or concerns at this time. MD Complaint: extremity pain Pain Consistency: constant Location: upper extremity Quality: aching Radiation: none Relieving factors: movement Exacerbating factors: range of motion and palpation Associated symptoms: denies other symptoms Related Data Home Medications ?Medication ?Instructions ?Recorded ?Confirmed clonazepam 2 mg tablet 2 mg PO TID 02/16/23 04/18/25 losartan 50 mg-hydrochlorothiazide 1 tab PO DAILY 02/16/23 04/18/25 12.5 mg tablet topiramate 50 mg tablet 50 mg PO BID 07/27/23 04/18/25 insulin lispro protamine-lispro 12 unit subcut TID 08/12/23 04/18/25 100 unit/mL (50-50) subcutaneous susp (Humalog Mix 50-50 Insuln U-100) empagliflozin 25 mg tablet 25 mg PO QAM 11/29/23 04/18/25 (Jardiance) insulin degludec 100 unit/mL (3 72 unit subcut QPM 11/29/23 04/18/25 mL) subcutaneous pen (Tresiba FlexTouch U-100 insulin) oxycodone-acetaminophen 5 mg-325 1 tab PO Q6H PRN severe pain 11/29/23 04/18/25 mg tablet Previous Rx's ?Medication ?Instructions ?Recorded amitriptyline 75 mg tablet 75 mg PO DAILY #30 tabs 08/12/20 bupropion HCl 300 mg 24 hr tablet, 300 mg PO QAM #30 tabs 08/12/20 extended release gabapentin 800 mg tablet 800 mg PO TID #30 tabs 08/12/20 quetiapine 200 mg tablet 200 mg PO DAILY #30 tabs 08/12/20 trazodone 150 mg tablet 150 mg PO BEDTIME #30 tabs 08/12/20 cyclobenzaprine 10 mg tablet 10 mg PO TID PRN muscle spasm #10 05/01/24 tabs lidocaine 5 % topical patch 1 patch topical DAILY #15 ea 05/01/24 doxycycline hyclate 100 mg capsule 100 mg PO BID 5 days #10 caps 05/22/24 pantoprazole 40 mg tablet,delayed 40 mg PO QAM #30 tabs 08/20/24 release acetaminophen 500 mg tablet 1,000 mg (2 x 500 mg) PO Q8H PRN 04/16/25 (Tylenol Extra Strength) pain #30 tabs ibuprofen 600 mg tablet 600 mg PO Q6H PRN pain #30 tabs 04/16/25 cephalexin 500 mg capsule 500 mg PO QID 7 days #28 caps 04/18/25 nystatin 100,000 unit/gram topical 1 appl topical BID 14 days #30 04/18/25 powder grams Allergies Allergy/AdvReac Type Severity Reaction Status Date / Time dulaglutide (From [facility]) Allergy Unknown Verified 04/18/25 16:15 Sulfa (Sulfonamide Allergy Unknown Verified 04/18/25 16:15 Antibiotics) Review of Systems Review of Systems: Yes all other systems are reviewed and are negative Constitutional: Constitutional: Reports as per [facility] Past Medical History Medical History Upper extremity weakness Myositis Chest pain Diabetes Asthma High cholesterol IDDM (insulin dependent diabetes mellitus) Surgical History History of esophagogastroduodenoscopy (EGD) Hx of colonoscopy H/O: hysterectomy H/O tubal ligation Social History Social History Household Members: Family Are you a primary healthcare interpreter to a significant other at home: No Do you presently have visiting nurse or other home services: No Alcohol intake: never Patient Tobacco Use Status: Current someday Tobacco user Tobacco use type: Smokeless Tobacco Cigarettes Per Day: 1 Second Hand Smoke Exposure: No Physical Exam Vital Signs: Vital Signs: Last Vital Signs Temp 98.0 F 04/18/25 12:42 Pulse 96 04/18/25 12:42 Resp 18 04/18/25 12:42 BP 106/58 L 04/18/25 12:42 Pulse Ox 96 04/18/25 12:42 O2 Del Method Room Air 04/18/25 12:42 BMI result Body Mass Index 29.0 Const: General: cooperative, comfortable and no acute distress Orientation/consciousness: patient oriented x3 Limitations: no limitations HEENT: Head: Yes normal to inspection, Yes normocephalic and Yes atraumatic Ears: hearing grossly normal bilaterally General nose exam: Normal external nose present Face and sinus: Yes normal facial exam Mouth: Normal oral and palatal mucosa present, oropharynx normal and moist mucous membranes Throat: Yes posterior oropharynx normal Eyes: General: appearance normal, both eyes and all related structures Eyelids: Yes eyelids normal Conjunctivae: conjunctivae normal Sclerae: sclerae normal Pupils: Equal, round and reactive pupils present EOM: EOMs intact bilaterally Neck: Neck: Yes normal visual inspection, Yes full ROM and Yes no lymphadenopathy Lymphatic: no lymphadenopathy noted Chest: Chest palpation & inspection: normal inspection of the chest Resp: Effort & Inspection: normal respiratory effort and able to speak in complete sentences Auscultation: clear to auscultation bilaterally, no crackles, no rales, no rhonchi and no wheezes Cardio: Rate: regular rate Rhythm: regular rhythm Heart sounds: S1 normal heart sound present and S2 normal heart sound present GI: Inspection: Yes normal to inspection Skin: Other: right axilla with beefy red, shiny rash noted. Bicep with 2x2 cm area of erythema noted. Neuro: General: patient oriented x3 and moves all extremities Cranial nerves: Yes Equal, round and reactive pupils present Extrem: Other: Bilateral shoulders with diffuse tenderness throughout. Right shoulder: abduction to 40 degrees, elbow nontender, strong radial pulse, Unable to perform lift off or empty can test.No overlying erythema, warmth. Left shoulder: diffuse tenderness throughout. No overlying erythema, warmth. Abduction to 90 degrees. Radial pulse 2+ BL. Good hotel and dining room cashier strength bilaterally. General: Yes normal to inspection Right upper extremity: normal to inspection Left upper extremity: normal to inspection Right lower extremity: normal to inspection Left lower extremity: normal to inspection Medications Administered Discontinued Medications Generic Name Dose Route Start Last Admin Trade Name Marcialq PRN Reason Stop Dose Admin Ketorolac Tromethamine 30 mg 04/18/25 12:06 04/18/25 12:23 Ketorolac Tromethamine 30 Mg/Ml Vial IM 04/18/25 12:07 30 mg ONCE ONE Administration Medical Decision Making Medical Decision Making MDM Narrative: This is a [id number] who presents to the ER with concerrns of BL shoulder pain. Pt had extensive workup two days ago and was instructed to f/u with orthopedics, currently awaiting for an appointment. She had good relief with toradol and is requesting a dose of this today. Pt also reporting increased pain/swelling below her right arm. Axilla with beefy red, shiny rash consistent with young. Will tx with antifungal powder. Also has small area of erythema and warmth overlying inner biceps measuring 3x3cm will treat as early cellulitis. Will tx with antibiotics. Given toradol, d/c with strict precautions. She understands and agrees with plan, stable for d.c. Differential Diagnosis Differential Diagnoses: The differential diagnosis associated with the presentation includes young, cellulitis, contact dermatitis, osteoarthritis, chronic pain Discharge Plan Discharge Clinical Impression: Cellulitis of arm, right, Candidiasis, Chronic pain of both shoulders Patient Disposition: Home, Self-Care Instructions: Cellulitis (ED), Chronic Pain (ED), Yeast Infection (ED), Arm Pain (ED) Additional Instructions: You were seen in the emergency department due to chronic shoulder pain. You also have early yeast skin infection which is going to be treated with topical antifungal powder. Please use as prescribed. You also have an area that is concerning for a skin infection underneath your right arm. Please take prescribed antibiotic as directed, use fungal powder as directed. Continue using ibuprofen and Tylenol as needed for pain. We had given you Toradol here in the department today, Follow-up with the customer specialist as they are going to help you with your shoulder pain. If any new or worsening symptoms occur including but not limited to severe chest pain, shortness for breath, please seek emergent care. Prescriptions: New nystatin 100,000 unit/gram powder 1 appl topical BID 14 Days Qty: 30 0RF cephalexin 500 mg capsule 500 mg PO QID 7 Days Qty: 28 0RF No Action pantoprazole 40 mg tablet,delayed release (DR/EC) 40 mg PO QAM Qty: 30 3RF trazodone 150 mg tablet 150 mg PO BEDTIME Qty: 30 0RF bupropion HCl 300 mg tablet extended release 24 hr 300 mg PO QAM Qty: 30 0RF quetiapine 200 mg tablet 200 mg PO DAILY Qty: 30 0RF amitriptyline 75 mg tablet 75 mg PO DAILY Qty: 30 0RF gabapentin 800 mg tablet 800 mg PO TID Qty: 30 0RF Humalog Mix 50-50 Insuln U-100 100 unit/mL (50-50) suspension 12 unit subcut TID cyclobenzaprine 10 mg tablet 10 mg PO TID PRN (Reason: muscle spasm) Qty: 10 0RF lidocaine 5 % adhesive patch,medicated 1 patch topical DAILY Qty: 15 0RF Rx Instructions: leave on most painful area for up to 12 hrs doxycycline hyclate 100 mg capsule 100 mg PO BID 5 Days Qty: 10 0RF ibuprofen 600 mg tablet 600 mg PO Q6H PRN (Reason: pain) Qty: 30 0RF acetaminophen [Tylenol Extra Strength] 500 mg tablet 1,000 mg PO Q8H PRN (Reason: pain) Qty: 30 0RF losartan-hydrochlorothiazide 50-12.5 mg tablet 1 tab PO DAILY clonazepam 2 mg tablet 2 mg PO TID topiramate 50 mg tablet 50 mg PO BID insulin degludec [Tresiba FlexTouch U-100] 100 unit/mL (3 mL) insulin pen 72 unit subcut QPM oxycodone-acetaminophen 5-325 mg tablet 1 tab PO Q6H PRN (Reason: severe pain) Jardiance 25 mg tablet 25 mg PO QAM Interventions: ED Discharge Assessment Last Done: 04/18/25 12:42 Discharge Date/Time: 04/18/25 12:42 Print Language: Occitan
[2025-04-18 12:42] VITALS: BP 106/58; PULSE 96; RESP 18; TEMP 36.7; O2SAT 96
--- OUTSIDE RECORDS SUMMARY | 2025-04-18 13:07 | XMS_ITS | Encounter Summary ---
Author Organization [employer] Address [address] [place] [address] [address] [place] [address] Care Team Providers Care Cotton Feeder Name Role Phone Cheryl Fitzpatrick MD Primary Care Provider + Nick Castellanos Unavailable Unavailable Reason for Visit * Reason Onset Date Comments PT-1 04/16/2024 Encounter Details Date Type Department Care Team (Late st Contact Info) Description 04/16/2024 Telephone [facility] [address] [place], [place] [phone] Cheryl Fitzpatrick MD [address] [place], [place] [phone] PT-1 Social History Tobacco Use Types Packs/Day [...] Y/N: Yes Provider name or facility name: [facility] Physical Therapy - [place]ws [address] Facility Address: [address] [place] [address] [facility]: Y/N: No Do you have a wheelchair: Y/N: No If yes- Manual or electric: no Visits 6 documented in this encounter Plan of Treatment Upcoming Encounters Date Type Department Care Team (Late st Contact Info) Description 06/27/2025 9:00 AM EST Office Visit [facility] [address] [place] [address] [phone] Salena Garcia, OD [address] [place] [address] documented as of this encounter Goals Goal [...] documented as of this encounter Care Teams Cotton Feeder Relationship Specialty Start Date End Date Cheryl Fitzpatrick MD [address] [place] [address] PCP - General Internal Medicine 09/10/22 Nick Castellanos FNP [address] [place] [address] Nurse Practitioner Family Medicine 07/04/23 Apolonia Mars health care analyst Production Honing Machine OperatorFinancial Services Representative 11/16/23 documented as of this encounter
--- OUTSIDE RECORDS SUMMARY | 2025-04-18 13:07 | XMS_ITS | Encounter Summary ---
Author Organization [employer] Address [address] [place] [address] [address] [place] [address] Care Team Providers Care Supervisor Nuclear Medicine Name Role Phone Cheryl Fitzpatrick MD Primary Care Provider + Nick Castellanos Unavailable Unavailable Encounter Details Date Type Department Care Team (Late st Contact Info) Description 02/12/2025 Results Follow-Up [facility] [address] [place], [place] [phone] Cheryl Fitzpatrick MD [address] [place] [address] [place] [facility] Complete Social History Tobacco Use Types Packs/Day [...] EST Office Visit [facility] [address] [place] [address] Salena Garcia OD [address] [place] [address] documented as of this encounter Goals Goal [...] as of this encounter Care Teams Supervisor Nuclear Medicine Relationship Specialty Start Date End Date Cheryl Fitzpatrick MD [address] [place] [address] PCP - General Internal Medicine 09/10/22 Nick Castellanos FNP [address] [place] [address] Nurse Practitioner Family Medicine 07/04/23 Apolonia Mars daycare director Certified Hand TherapistDip Brazier 11/16/23 documented as of this encounter
--- OUTSIDE RECORDS SUMMARY | 2025-04-18 13:07 | XMS_ITS | Clinical Summary ---
Author Organization [id number] Address [address] [facility] [address] [place] [address] Care Team Providers Care Furnace Utility Operator Name Role Phone Ingrid Wolfe MD [...] hyperglycemia, with long-term current use of insulin ([facility]),Anxie ty Test daily before all meals/snacks [...] TWICE DAILY 45 g 2 023 Active buPROPion XL (Wellbutrin XL) 300 MG 24 hr tabletIndicatio ns:Type 2 diabetes mellitus with hyperglycemia, with long-term current use of insulin ([facility]),Anxie ty Take 1 tablet (300 mg) by mouth in the morning. Do not crush, chew, or split. 90 tablet 3 024 Active clonazePAM (KlonoPIN) 2 MG tabletIndicatio ns:Type 2 diabetes mellitus with hyperglycemia, with long-term current use of insulin ([facility]) Take 1 tablet (2 mg) by mouth every 8 (eight) hours. 84 tablet 5 024 Active QUEtiapine (SEROquel) 300 MG tabletIndicatio ns:Type 2 diabetes mellitus with hyperglycemia, with long-term current use of insulin ([facility]) Take 0.5 tablets (150 mg) by mouth in the morning AND 2 tablets (600 mg) at bedtime. 225 tablet 3 024 Active traZODone (Desyrel) 100 MG tabletIndicatio ns:Type 2 diabetes mellitus with hyperglycemia, with long-term current use of insulin ([facility]),Anxie ty TAKE 2 TABLET BY MOUTH [...] hyperglycemia, with long-term current use of insulin ([facility]) INJECT 72 UNITS SUBCUTANEOUSLY EVERY EVENING 30 mL 7 024 Active insulin lispro (HumaLOG) 100 UNIT/ML injectionIndica tions:Type 2 diabetes mellitus with hyperglycemia, with long-term current use of insulin ([facility])Redd ty INJECT 10 UNITS SUBCUTANEOUSLY BEFORE MEALS 15 mL 7 024 Active TRUEplus Lancets 33G miscIndications :Type 2 diabetes mellitus with hyperglycemia, with long-term current use of insulin ([facility]),Anxie ty TEST BLOOD SUGAR BEFORE MEALS AND SNACKS AND BEFORE BEDTIME 100 each 11 024 Active Pentips Generic Pen [place] 32G X 4 MM miscIndications :Type 2 diabetes mellitus with hyperglycemia, with long-term current use of insulin ([facility]),Anxie ty USE FOUR TIMES DAILY 100 each [...] hyperglycemia, with long-term current use of insulin ([facility]) TAKE 1 TABLET BY MOUTH EVERY MORNING 30 tablet 3 025 Active topiramate 50 MG tabletIndicatio ns:Migraine with aura and without status migrainosus, not intractable TAKE 1 TABLET BY MOUTH AT BEDTIME 90 tablet Active ARIPiprazole (Abilify) 30 MG tablet Take 30 mg by mouth in the morning. Active busPIRone (Buspar) 5 MG tablet Take 1 tablet by mouth every 6 (six) hours during the day. Active Continuous Glucose Sensor (Dexcom G7 Sensor) [facility] Active cyclobenzaprine (Flexeril) 10 MG tablet Take [...] mg by mouth in the morning. Active FreeStyle Precision Britton Test test stripIndication s:Type 2 diabetes mellitus with hyperglycemia, with long-term current use of insulin ([facility]) USE DIRECTED TO TEST BLOOD SUGAR NEEDED FOR HYPOGLYCEMIA 50 strip 5 Active glucose blood (FreeStyle Precision Britton Test) test stripIndication s:Type 2 diabetes mellitus with hyperglycemia, with long-term current use of insulin ([facility]) USE DIRECTED TO TEST BLOOD SUGAR NEEDED FOR HYPOGLYCEMIA 50 strip 5 024 2024 Discontinued senna-docusate sodium (Senokot-S) 8.6-50 MG tablet Take 1 tablet by mouth if needed each day for constipation. 90 tablet 024 2024 Discontinued(T herapy completed) topiramate 50 MG tabletIndicatio ns:Migraine with aura and without status migrainosus, not intractable TAKE 1 TABLET BY MOUTH AT BEDTIME 90 tablet 2024 Discontinued Active Problems Problem Noted Date [...] life style modifications, diet and referral to workforce development specialist. Recommended to decrease soda and sugary [...] life style modifications, diet and referral to workforce development specialist. Recommended to decrease soda and sugary [...] (10/21/2023 11:33 AM EST): Seen recently by checking department supervisor, fu every 6 m A1c is improving but not at goal, FU with iron installer (I gave pt phone number to schedule appointment, I will refer to correctional case manager to support her to keep her appointment) No change in medication and fu with iron installer Papilloma 06/24/2023 Retained dental root 05/18/2023 Major [...] Psychiatric medications were [place], with high-dose Clonazepam. She previously experienced severe [...] but she will be referred to new [facility] pyschiatric prescriber. She gives verbal permission to [...] psychiatric symptoms. Any issues or concerns, contact [facility]. All her questions were answered and I [...] Psychiatric medications were [place] in [place], with high-dose Clonazepam. She previously experienced severe [...] Psychiatric medications were started by [place] in [place], with high-dose Clonazepam. She previously experienced severe [...] letters and forms, she should F/U with [facility] Medical Records. It is clear she would [...] Psychiatric medications were started by [place] in [place], with high-dose Clonazepam. She previously experienced severe [...] Psychiatric medications were started [place] in [place], with high-dose Clonazepam. She previously experienced severe [...] her room will be given to the [id number]-ppr, and pt anticipates becoming homeless. Has been [...] her room will be given to the necypo-bx-loh, and pt anticipates becoming homeless. Has been [...] it is difficult for her to access [facility] every week fu with neurology next month Housing instability, currently housed 02/17/2023 Assessment & Plan (05/06/2023 1:51 PM EDT): Has to leave her daughter's home in 30d Will refer to [facility] to help her in the process of finding a room or mcfp I suggested to place her cat with the [facility] shelters for cats, at least temporarily [...] daughter's home in 30d Will refer to [facility] to help her in the process of finding a room or mcfp I suggested to place her cat with the [facility] shelters for cats, at least temporarily [...] and arguments with her daughters I provided mcfp information and she will follow up with [...] clinician will complete referral for psychopharmacology at [facility]. Clinician educated patient on coping skills including [...] and supports PLAN: 1. Follow up with [facility]: Not recommended for follow-up 2. Patient goal is to established psychiatry service 3. Behavioral Recommendations a. Patient will continue to comply with medication b. Patient will utilze new coping skills c. Patient will reach out to a [facility], if needed Assessment & Plan (01/06/2023 12:01 [...] last pill. Pt to be seen by HIGHWAY MAINTENANCE SUPERVISOR nurse. Pt agreed to be referred to pill boxes. Assessment & Plan (12/21/2022 3:44 PM EDT): Patient has not received fu appt from counselor within the past month, she cant travel to [place], would like it all within the same area ([place] or [facility]) I will refer to our service and continue same meds. Assessment & Plan (11/15/2022 11:55 AM EDT): continue Wellbutrin and Seroquel for now continue to fu closely with psychotherapist she will diamond picker prescription for clonazepam today and discussed with her about [facility] least 3 [facility] prior to last [...] yet. Advised to continue to follow-up with iron installer in 2 weeks, she definitely would benefit [...] meals, avoid long periods of fasting. FU [facility] endocrinology next mo Assessment & Plan (10/09/2024 3:58 PM EST): Uncontrolled, she needs appointment with iron installer. Start Mounjaro 2.5 mg and FU in 4 weeks to assess tolerance, I told her she needs to r/s appointment with iron installer. Continue Tresiba 72 units + Humalog TID ac meals + Jardiance. I discuss with her the importance of having small infraction meals, avoid long periods of fasting. Assessment & Plan (07/17/2024 1:23 PM EST): Uncontrolled. Pt to FU with endocrinology in 3 days. Assessment & Plan (04/25/2024 3:30 PM EDT): A1c is improving, not at goal. Continue to follow up closely with iron installer team. No change in medications. Assessment & Plan (03/13/2024 1:40 PM EDT): Improving, A1c not at goal yet. FU endocrinology on 03/08 ([facility] endo). Continue on Tresiba, Humalog, Jardiance Counseled [...] and FU closely with DM educator an iron installer clinic Counseled re more frequent low calorie/carb [...] finding adequate food, counseled to go to [employer] to use HIP program. Needs to rs endocrinology appt, info given Assessment & Plan (03/24/2023 1:42 PM EDT): A1C is uncontrolled, getting worse unclear if related to seroquel and poor adherence to diet increase tresiba to 55 units per day and continue humalog start jardiance 25 mg and fu in 4-6 weeks new referral to iron installer as local iron installer is not accepting new patients Counseled re [...] before breakfast and dinner and refer to iron installer Assessment & Plan (12/21/2022 10:23 AM EDT): [...] starts seeing psychiatrist Has an appointment with pipeline dispatch operator fu in 2 months Assessment & Plan [...] go to ED immediately I gave her [facility] crisis information, otherwise she will FU with [...] clinician will complete referral for psychopharmacology at [facility]. Clinician educated patient on coping skills including [...] and supports PLAN: 1. Follow up with [facility]: Not recommended for follow-up 2. Patient goal is to established psychiatry service 3. Behavioral Recommendations a. Patient will continue to comply with medication b. Patient will utilze new coping skills c. Patient will reach out to a [facility], if needed Left foot pain 10/01/2022 02/21/2025 [...] take Wellbutrin and Seroquel daily Refer to [facility] Pt has crisis number and is able to contract for safety. Encounters * This document contains information received from the source organization and may not represent a complete record from that organization. Date Type Department Care Team Description 04/18/2025 Refill [facility]reet [facility] [place] [address] Alejandra Dyer MD Type 2 diabetes mellitus with hyperglycemia, with long-term current use of insulin ([facility]) 04/16/2025 Orders Only GENERIC EXTERNAL DATA DEPARTMENT Provider, Generic External Data 04/12/2025 Travel 04/08/2025 Travel 04/05/2025 Telephone [facility] [place] [address] Ingrid Wolfe MD Accommodation Letter 04/01/2025 11:00 AM EDT Office Visit [address] [address] Cayla Tompkins MD Mid back pain, chronic (Primary Dx); Chronic midline low back pain without sciatica; Arthritis of left hip; Chronic pain syndrome 04/01/2025 Travel 03/28/2025 Telephone [facility] Jaspreet [facility] [place] [address] Ingrid Wolfe MD 03/27/[address] [address] Ingrid Wolfe MD Housing Form (I called [...] form, after it has been faxed to [facility].) 03/25/2025 Travel 03/21/2025 Refill [facility] [place] [address] Ingrid Wolfe MD Migraine with aura and without status migrainosus, not intractable 03/20/2025 10:00 AM EDT Office Visit [facility] ADULT DENTAL [address] [place] [address] Hema Hill DDS Ill-fitting dentures (Primary Dx) 03/15/2025 Refill [facility] MEDICINE [address] [place] [address] Ingrid Wolfe MD Anxiety; Migraine with aura and without status migrainosus, not intractable; Type 2 diabetes mellitus with hyperglycemia, with long-term current use of insulin (CMS/HCC) 03/11/2025 Telephone [facility] [address] [facility] [place] [address] Ingrdi Wolfe MD Medication Question 03/11/2025 Telephone [facility] [address] [facility] [place] [address] Ingrid Wolfe MD Nurse Triage 03/06/2025 Orders Only [facility]INE [address], [place] [address] Ingrid Wolfe MD 02/21/2025 11:30 AM EDT Office Visit [facility] ADULT DENTAL [address] [place] [address] Hema Hill DDS Ill-fitting dentures (Primary Dx); Normal oral exam 02/21/2025 10:30 AM EDT Office Visit [facility] [address] [place] [address] Ingrid Wolfe MD Type 2 diabetes mellitus with hyperglycemia, with long-term current use of insulin (CMS/HCC) (Primary Dx); Hepatic steatosis; Liver hemangioma; Flexural eczema; Arthritis of both shoulders; Major depressive disorder, recurrent episode, severe with mood-congruent psychotic features (CMS/HCC); Encounter for immunization 02/21/2025 Travel 02/20/2025 Telephone [facility] [address] [place] [address] Ingrid Wolfe MD Chart Prep 02/13/2025 Refill [facility] [address] [place] [address] Ingrid Wolfe MD Mild intermittent asthma with exacerbation 02/12/2025 9:00 AM EDT Office Visit [facility] ADULT DENTAL [address] [place] [address] Hema Hill DDS Ill-fitting dentures (Primary Dx) 02/12/2025 Results Follow-Up [facility]INE [address] [place] [address], [place] [address] Ingrid Wolfe MD US Abdomen Complete 02/12/2025 Travel 02/12/[address] [address] Ingrid Wolfe MD telephone call 02/08/2025 Telephone [facility] ADULT DENTAL [address] [place] [phone] Hema Hill DDS cx scheduled appt 02/04/[address] [address] Ingrid Wolfe MD Medication Question 01/25/2025 10:00 AM EDT Office Visit [facility] ADULT DENTAL [address] [place] [address] Hema Hill DDS Ill-fitting dentures (Primary Dx) 01/21/[address] [address] Ingrid Wolfe MD Care Management (C3- program [...] with others, in a hotel, in a mcfp, living outside on the street, on a [...] Description 06/27/2025 9:00 AM EST Office Visit [facility] OPTOMETRY [address] [place] [address] Salena Garcia, OD [address] [place] [address] Health Maintenance Due Date Last Done Comments [...] Procedure Name Priority Date/Time Associated Diagnosis Comments XR SHOULDER 2+ VIEWS BILATERAL Routine 04/16/2025 1:34 PM EDT URINALYSIS, COMPLETE, WITH REFLEX TO CULTURE Routine [...] NUCLEIC ACID Routine 04/16/2025 10:48 AM EDT CULTURE, URINE, ROUTINE Routine 04/16/2025 12:00 AM EDT DENTURE ADJUSTMENT Routine 03/20/2025 10 [...] use of insulin (CMS/HCC) POCT GLUCOSE Routine 02/21/2025 10:38 AM EDT Type 2 diabetes mellitus with hyperglycemia, with long-term current use of insulin (CMS/HCC) NO CHARGE - REDO PROCEDURE Routine 02/12/2025 [...] with long-term current use of insulin (CMS/HCC) PANORAMIC RADIOGRAPHIC IMAGE Routine 07/27/2024 9:00 AM [...] Recently Relevant to Health Maintenance Results * XR Shoulder 2+ Views Bilateral (04/16/2025 1:34 PM EDT) Anatomical Region Laterality Modality Upper Extremities, Shoulder Bilateral Radi ographic Imaging 04/16/2025 1:34 PM EDT Narrative 04/16/2025 2:43 PM EDT [address] [address] XRay Report Signed Patient: Lizet Cash MR# : [id number] : 1975 Acct:[id number] Age/Sex: 49 / F ADM Date: 04/16/25 Loc: HO.ED Attending Dr: Ordering Physician: Ernestina Mackey Date of Service: 04/16/25 Procedure(s): XR Shoulder Mirza min 2V Accession Number(s): [id number] cc: Ingrid Wolfe MD; Ernestina Mackey Exam: 2 view bilateral shoulders. INDICATION: Shoulder pain Prior: June 29 2023 TECHNIQUE: AP and Y view bilateral shoulders FINDINGS: Right shoulder: Small focal calcific density projects over the right greater tuberosity. Small marginal osteophytes are present in the inferior glenohumeral joint. AC joint is intact. There is no dislocation. Left shoulder: Glenohumeral joint is intact without degeneration. AC joint is intact. There is no dislocation. XR/XR Shoulder Mirza min 2V Impression: Right shoulder Possible focal area of calcific tendinitis involving rotator cuff. Mild degenerative changes. Left shoulder: Unremarkable. Electronically signed by: Piotr Rose MD 04/16/2025 02:40 PM EDT Dictated By: Piotr Rose MD Signed By: <Electronically signed by Piotr Rose MD in OV> 04/16/25 1440 DD/ 1334 TD/TT: 04/16/25 1433 Customer Services Manager: Procedure Note Ron, Image - 04/16/[address] [address] XRay Report Signed Patient: Augusto Cash# : [id number] : 1975Acct:[id number] Age/Sex: 49 / FADM Date: 04/16/25 Loc: .ED Attending Dr: Ordering Physician: Ernestina Mackey Date of Service: 04/16/25 Procedure(s): XR Shoulder Mirza min 2V Accession Number(s): [id number] cc: Ingrid Wlofe MD; Ernestina Mackey Exam: 2 view bilateral shoulders. INDICATION: Shoulder pain Prior: June 29 2023 TECHNIQUE: AP and Y view bilateral shoulders FINDINGS: Right shoulder: Small focal calcific density projects over the right greater tuberosity. Small marginal osteophytes are present in the inferior glenohumeral joint. AC joint is intact. There is no dislocation. Left shoulder: Glenohumeral joint is intact without degeneration. AC joint is intact. There is no dislocation. XR/XR Shoulder Mirza min 2V Impression: Right shoulder Possible focal area of calcific tendinitis involving rotator cuff. Mild degenerative changes. Left shoulder: Unremarkable. Electronically signed by: Piotr Rose MD 04/16/2025 02:40 PM EDT Dictated By: Piotr Rose MD Signed By: <Electronically signed by Piotr Rose MD in OV> 04/16/25 1440 DD/ 1334 TD/TT: 04/16/25 1433 Customer Services Manager: [facility] External Provider IMG XR PROCEDURES Final Result * (ABNORMAL) Urinalysis, Complete, with Reflex to Culture (04/16/2025 11:54 AM EDT) Color Urine Yellow [facility] Appearance Urine Clear [facility] PH 5.5 5.0 - 9.0 [facility] Glucose Urine UA >=1000(A) Negative mg/dL [facility] Urine Blood Negative Negative [facility] Specific [place] - Urine >=1.030(H) 1.005 - 1.025 [facility] Urine Protein Negative Neg-Trace mg/dL [facility] Urine Ketones Trace Negative mg/dL [facility] Nitrite Urine Negative Negative [facility] Leukocyte Esterase Urine Negative Negative [facility] RBC Urine 0-2 0 - 2 /HPF [facility] Urine WBC 6-10(A) 0 - 5 /HPF [facility] Urine Squamous Epithelial Cell 0-2 0 - 2 /HPF [facility] Urine Bacteria None Seen None Seen [facility] Hyaline Casts, Urine 3-5 0 - 2 /LPF [facility] 04/16/2025 11:5 4 AM EDT 04/16/2025 12:13 PM EDT Narrative [facility] - 04/16/2025 12:23 PM EDT [id number], Clean Catch us Generic External Data Provider LAB URINE ORDERAB LES Final Result [facility] [address] [place] [phone] * High Sensitivity Troponin I (04/16/2025 11:46 AM EDT) TROPONIN I HIGH SENSITIVITY <2.7 <3.5 - 17.0 ng/L [facility] Comment:The Agu[place] high sens itivity Troponin-I results should beused in conjunction with other diagnostic information suchas ECG, clinical observations and information, and patientsymptoms to aid in the diagnosis of [place]. 04/16/2025 11:4 6 AM EDT 04/16/2025 11:50 AM EDT us Generic External Data Provider LAB BLOOD ORDERAB LES Final Result [facility] [address] [place] [address] [phone] * CBC auto differential (04/16/2025 11:46 AM EDT) White Blood Count 6.2 4.8 - 10.8 X10*3/uL [facility] Red Blood Count 4.71 4.20 - 5.50 X10*6/uL [facility] Hemoglobin 13.8 12.0 - 16.0 g/dl [facility] Hematocrit 40.9 37.0 - 47.0 % [facility] Mean Corpuscular Volume 86.8 80.0 - 98.0 fL [facility] Mean Corpuscular Hemoglobin 29.3 27.0 - 33.0 pg [facility] Mean Corpuscular HGB Conc 33.7 31.0 - 35.0 g/dl [facility] Red Cell Distribution Width 14.4 11.0 - 16.0 % [facility] Platelet Count 288 160 - 400 X10*3/uL [facility] Mean Platelet Volume 10.2 9.4 - 12.3 fL [facility] Neutrophils Percent Auto 55.0 45 - 73 % [facility] Imm Gran Pct Auto 0.2 0.0 - 0.4 % [facility] Lymphocytes Percent Auto 34.7 20 - 40 % [facility] Monocytes Percent Auto 6.5 2 - 11 % [facility] Eosinophils Percent Auto 2.8 0 - 4 % [facility] Basophils Percent Auto 0.8 0 - 2 % [facility] NRBC Pct Auto 0.0 0.0 - 0.2 /100WBC [facility] Neutrophils Absolute Auto 3.4 2.0 - 8.3 x10*3/uL [facility] Imm Gran Abs Auto 0.01 0.00 - 0.03 X10*3/uL [facility] Lymphocytes Absolute Auto 2.1 1.2 - 4.9 X10*3/uL [facility] Monocytes Absolute Auto 0.4 0.1 - 1.2 X10*3/uL [facility] Eosinophils Absolute Auto 0.2 0.0 - 0.4 X10*3/uL [facility] Basophils Absolute Auto 0.1 0.0 - 0.2 X10*3/uL [facility] NRBC Abs Auto 0.000 0.0 - 0.012 X10*3/uL [facility] 04/16/2025 11:4 6 AM EDT 04/16/2025 11:50 AM EDT us Generic External Data Provider LAB BLOOD ORDERAB LES Final Result Performing Organization Address [facility] Co de Phone Number [facility] [address] [place] [phone] * hCG, Total, Quantitative (04/16/2025 11:46 AM EDT) HCG Quantitative <2 mIU/mL [facility] Comment:Weeks post LMP Appro ximate hCG(Last Menstrual Period) Range (mIU/ml)3 - 4 weeks 9 - 1304 - 5 weeks 75 - 2,6005 - 6 weeks 850 - 20,8006 - 7 weeks 4000 - 100,2007 - 12 weeks 11,500 - 289,12769 - 16 weeks 18,300 - 137,21334 - 29 weeks (2nd trimester) 1,400 - 53,09484 - 41 weeks (3rd trimester) 940 - [...] ORDERAB LES Final Result Performing Organization Address [facility]/ZIP Co de Phone Number [facility] [address] [place] [address] [phone] * Magnesium (04/16/2025 11:46 AM EDT) Pathologist [facility] Magnesium 2.1 1.6 - 2.6 mg/dL [facility] 04/16/2025 11:4 6 AM EDT 04/16/2025 11:50 AM EDT Generic External Data Provider LAB BLOOD ORDERAB LES Final Result Performing Organization Address [facility] Co de Phone Number [facility] [address] [place] [phone] * (ABNORMAL) Creatine Kinase, Total (04/16/2025 11:46 AM EDT) [facility] Creatine Kinase Total 393(H) 26 - 140 U/L [facility] 04/16/2025 11:4 6 AM EDT 04/16/2025 11:50 AM EDT Generic External Data Provider LAB BLOOD ORDERAB LES Final Result Performing Organization Address [facility] Co de Phone Number [facility] [address] [place] [address] [phone] * (ABNORMAL) Comprehensive Metabolic Panel (04/16/2025 11:46 AM EDT) [facility] Sodium 138 135 - 145 mmol/L [facility] Potassium 3.7 3.3 - 5.1 mmol/L [facility] Chloride 108 96 - 108 mmol/L [facility] Carbon Dioxide 22 22 - 29 mmol/L [facility] Anion Gap 12 12 - 20 [facility] Urea Nitrogen (BUN) 13 9 - 16 mg/dL [facility] Creatinine, Serum 0.55 0.5 - 1.4 mg/dL [facility] Creatinine Clr Calc Pharmacy 138.6 [facility] Comment:Provided height and weight: 167.64 cm,88.451 kg.eGFR (calculated from the MDRD study equation) and eCrCl(calculated from the Cockcroft-Gault equation) are based ondifferent parameters and may not yield comparable results.If eCrCl result is absurd, please check patient'sheight/weight. Estimated Glomerular Filt Rate >60 [facility] Comment:Chronic Kidney Disea se: Estimated GFR < 60 mL/min/1.48q4Tcvmrs Kidney Disease: Estimated GFR < 15 mL/min/1.73m2 Glucose 152(H) 60 - 115 mg/dL [facility] Calcium 9.2 8.4 - 10.2 mg/dL [facility] Bilirubin, Total 0.2 0.0 - 1.0 mg/dL [facility] Aspartate Amino Transferase 33(H) 5 - 31 U/L [facility] Alanine Aminotransferase 51(H) 0 - 31 U/L [facility] Total Protein 7.2 6.5 - 8.0 g/dL [facility] Albumin Level 4.6 3.5 - 5.0 g/dL [facility] Alkaline Phosphatase 84 39 - 117 U/L [facility] 04/16/2025 11:4 6 AM EDT 04/16/2025 11:50 AM EDT us Generic External Data Provider LAB BLOOD ORDERAB LES Final Result [facility] [address] [place] [address] [phone] * Influenza A B2 ID NOW ([employer]) (04/16/2025 10:48 AM EDT) IDNOW SERIAL# [id number] [facility] Influenza A Negative Negative [facility] Influenza B2 Negative Negative [facility] Influenza A B2 Note See Note [facility] Comment:The [employer] ID NOW In fluenza [...] GENERAL ORDERABLES Final Result Performing Organization Address [facility] Co de Phone Number [facility] [address] [place] [address] [phone] * Strep A Nucleic Acid (04/16/2025 10:48 AM EDT) [employer] SERIAL# [id number] [facility] Strep A Nucleic Acid Negative Negative [facility] Comment:All test results mus t be [...] GENERAL ORDERABLES Final Result Performing Organization Address [facility] Co de Phone Number [facility] [address] [place] [phone] * COVID-19 ID NOW ([employer]) (04/16/2025 10:48 AM EDT) [employer]NOW SERIAL# [id number] [facility] COVID-19 TEST Negative Negative [facility] COVID-19 NOTE See Note [facility] Comment: Results are for the identification of SARS-CoV2 RNA. TheSARS-CoV2 RNA is generally detectable in respiratory samplesduring the acute phase of infection. Positive results areindicative of the presence of SARS-CoV-2 RNA; clinicalcorrelation with patient history and other diagnosticinformation is necessary to determine patient infectionstatus. Positive results do not rule out bacterial infectionor co- infection with other viruses.Testing facilities within the [facility] and [facility] are required to report all positive results [...] use by authorized laboratories.Testing performed on the [employer] ID NOW utilizing NAAT. 04/16/2025 10:4 8 AM EDT 04/16/2025 10:53 AM EDT Generic External Data Provider LAB MOLECULAR ERIC GNOSTICS ORDERABLES Final Result Performing Organization Address City/[facility]/ZIP Co de Phone Number [facility] [address] [place] [phone] * Culture, Urine, Routine (04/16/2025 12:00 AM EDT) Only the most recent of2 resultswithin the time period is included. Urine Urine specimen obtained by clean catch procedure / Unknown 04/16/2025 04/16/2025 Comment:[facility] Narrative [facility] - 04/17/2025 11:59 AM EDT Urine Culture Report Result Urine Culture 10,000 to 50,000 cfu/ml Urine Culture Mixed bacterial kerri characteristic of Urine Culture urogenital contamination. Specimen Source: Urine clean catch Generic External Data Provider LAB MICROBIOLOGY - GENERAL ORDERABLES Final Result Performing Organization Address City/[facility]/ZIP Co de Phone Number [facility] [address] [place] [phone] * BI Mammogram Diagnostic Tomosynthesis Bilateral (03/06/2025 12:00 PM EDT) Anatomical Region Laterality Modality Breast Bilateral Mammography 03/06/2025 12:0 0 PM EDT Narrative 03/06/2025 1:55 PM EDT Bettie [address] [place] [address] Mammography Report Signed Patient: Lizet Cash MR# : [id number] : 1975 Acct:[id number] Age/Sex: 49 / F ADM Date: 03/06/25 Loc: HO.MAMMO Attending Dr: Ingrid Wolfe MD Ordering Physician: Ingrid Wolfe MD Results: 3.12MProbably Benign Finding - 12 month F/U Suggested Date of Service: 03/06/25 Follow Up: 12 month diagnos tic follow up Procedure(s): MM tomosynthesis diagnostic BI Accession Number(s): [id number] cc: Ingrid Wolfe MD EXAMINATION: MM DIAGNOSTIC [...] 03/06/25 1352 DD/ 1200 TD/TT: 03/06/25 1250 Customer Services Manager: Procedure Note Donotuseinterpreter, Image - 03/06/2025 [facility] [address] [place] [address] Mammography Report Signed Patient: Augusto Cash# : [id number] : 1975Acct:[id number] Age/Sex: 49 / FADM Date: 03/06/25 Loc: HO.MAMMO Attending Dr: Ingrid Wolfe MD Ordering Physician: Ingrid Wolfe MD Results: 3.12MProbably Benign Finding - 12 month F/U Suggested Date of Service: 03/06/25Follow Up: 12 month diagnos tic follow up Procedure(s): MM tomosynthesis diagnostic BI Accession Number(s): [id number] cc: Ingrid Wolfe MD EXAMINATION: MM DIAGNOSTIC [...] 03/06/25 1352 DD/ 1200 TD/TT: 03/06/25 1250 Customer Services Manager: Ingrid Wolfe MD IMG BI PROCEDURES Final Result * (ABNORMAL) POCT HGB A1C (02/21/2025 10:41 AM EDT) Hemoglobin A1C 8.2(A) 4.0 - 5.7 % QC Media Lot # [id number] Lot# Expiration Date Blood 02/21/2025 10:4 1 AM EDT Ingrid Wolfe MD POINT OF CARE TEST ENTER /EDIT ORDERABLES Final Result * POCT Glucose (02/21/2025 10:38 AM EDT) Glucose Blood, POC 121 60 - 200 mg/dL Comment:random QC Media Lot # [id number] Lot# Expiration Date 000 Blood Capillary blood specimen / Unknown 02/21/2025 10:38 AM EDT Ingrid Wolfe MD POINT OF CARE TEST ENTER /EDIT ORDERABLES Final Result * US Abdomen Complete (02/04/2025 9:00 AM EDT) Anatomical Region Laterality Modality Abdomen Ultrasound 02/04/2025 9:00 AM EDT Narrative 02/04/2025 10:50 AM EDT [place] [address] Ultrasound Report Signed Patient: Lizet Cash MR# : [id number] : 1975 Acct:[id number] Age/Sex: 49 / F ADM Date: 02/04/25 Loc: HO.US Attending Dr: Ingrid Wolfe MD Ordering Physician: Ingrid Wolfe MD Date of Service: 02/04/25 Procedure(s): US abdomen complete Accession Number(s): [id number] cc: Ingrid Wolfe MD EXAMINATION: US ABDOMEN [...] Cruz Pierson MD 02/04/2025 10:47 AM EDT Dictated By: Cruz Pérez MD Signed By: <Electronically signed by Cruz Amor MD in OV> 02/04/25 1047 DD/ 0900 TD/TT: 02/04/25 0910 Customer Services Manager: Procedure Note Donotuseinterpreter, Image - 02/04/2025 [place] [address] Ultrasound Report Signed Patient: Augusto Cash# : [id number] : 1975Acct:[id number] Age/Sex: 49 / FADM Date: 02/04/25 Loc: HO.US Attending Dr: Ingrid Wolfe MD Ordering Physician: Ingrid Wolfe MD Date of Service: 02/04/25 Procedure(s): US abdomen complete Accession Number(s): [id number] cc: Ingrid Wolfe MD EXAMINATION: US ABDOMEN [...] 02/04/25 1047 DD/ 0900 TD/TT: 02/04/25 0910 Customer Services Manager: us Ingrid Wolfe MD IM US PROCEDURES Edited Result - Final * (ABNORMAL) Lipid Panel with Reflex to Direct LDL (11/29/2024 8:21 AM EDT) Triglycerides 178(H) <150 mg/dL [facility] Comment:Desirable Triglyceri de: less than 150 mg/dLBorderline High Triglyceride 150-199 mg/dLHigh Triglyceride: 200-499 mg/dLVery High Triglyceride: greater than or equal to 5OO mg/dL Cholesterol 144 <200 mg/dL [facility] Comment:Desirable Cholestero l: less than 200 mg/dLBorderline High Cholesterol: 200-239 mg/dLHigh Cholesterol: greater than 239 mg/dL LDL Cholesterol Calculated 72 <100 mg/dL [facility] Comment:Desirable LDL: less than 100 mg/dLNear Optimal/Above Optimal LDL: 110- 129 mg/dLBorderline High LDL: 130-159 mg/dLHigh LDL: 160-189 mg/dLVery High LDL: greater than or equal to 190 mg/dL HDL Cholesterol 37(L) >40 mg/dL [facility] Comment:Desirable HDL: great er than 40 mg/dL Note: This HDL assay may give artificially low results in patients with liver disease. Blood 11/29/2024 8:21 AM EDT 11/29/2024 11:37 AM EDT us Ingrid Wolfe MD LAB BLOOD ORDERABLES Fin al Result [facility] [address] [place] [address] [phone] * Hepatitis Panel, General (10/04/2024 8:16 AM EST) Hepatitis A IgM Nonreactive Nonreactive [facility] Comment:IgM antibodies to GUILLORY V not detected; does not exclude earlyacute or recovered HAV infection. ~Hepatitis B Surface Antibody REACTIVE Nonreactive [facility] Comment:REACTIVE: > 11.99 mI U/mL Hepatitis B Core Antibody Nonreactive Nonreactive [facility] Hepatitis C Antibody Nonreactive Nonreactive [facility] Comment:Antibodies to HCV no t detected; does not exclude early acuteHCV infection. Hepatitis B Surface Ag Negative Negative [facility] Blood 10/04/2024 8:16 AM EST 10/04/2024 11:15 AM EST Ingrid Wolfe MD LAB BLOOD ORDERABLES Fin al Result [facility] [address] [place] [address] [phone] * HIV-1/2 Antigen and Antibodies, Fourth Generation, with Reflexes (10/04/2024 8:16 AM EST) HIV AB/AG Nonreactive Nonreactive [facility] Comment:HIV-1 p24 Ag and/or HIV-1/HIV-2 Ab not detected.A test result that is nonreactive does not exclude thepossibility of exposure to or infection with HIV-1 and/orHIV-2. Nonreactive results in this assay for individualswith prior exposure to HIV-1 and/or HIV-2 may be due toantigen and antibody levels that are below the limit ofdetection of this assay.The [facility] HIV Ag/Ab Combo assay result andsupplemental assay results should be interpreted inconjunction with the patient's clinical presentation,history and other laboratory results. If the results areinconsistent with clinical evidence, additional testing issuggested to confirm the result. Blood Venous blood specimen / Unknown 10/04/2024 8:16 AM EST 10/04/2024 11:15 AM EST us Ingrid Wolfe MD LAB BLOOD ORDERABLES Fin al Result Performing Organization Address [facility] de Phone Number [facility] [address] [place] [address] [phone] * Albumin, Random Urine W/Creatinine (08/31/2024 2:09 PM EST) Creatinine, Urine 31.14 mg/dL [facility] Microalbumin Urine <5.0 mg/L [facility] Microalbum Creatinine Ratio Ur TNP <30 ug/mg cr [facility] Comment:Unable to calculate albumin/creatinine ratio due to lowmicroalbumin or creatinine result. Urine (Urine, Random) 08/31/2024 2:09 PM EST 08/31/2024 4:00 PM EST Ingrid Wolfe MD LAB URINE ORDERABLES Fin al Result Performing Organization Address [facility] de Phone Number [facility] [address] [place] [address] [phone] * Pap Smear (12/14/2023 11:23 AM EDT) Swab Cervix uteri structure / Unknown 12/14/2023 11:23 AM EDT 12/14/2023 2:20 PM EDT Narrative [facility] - 01/02/2024 11:54 AM EDT ----- ------- Name: Lizet Cash Age/Sex: 48/F : 1975 Unit#: [id number] Attend Dr: Ingrid Wolfe MD Re12/14/23 Status: DEP REF Location: RickLNP Disch: ----- ------- SPEC : [id number] RECD: 12/14/23-1419 STATUS: LATISHA VARELA NUM: [id number] JUANCARLOS: 12/14/23-[address] [facility] [address]: Ingrid Wolfe MD ENTERED: 12/14/23-5510 SP TYPE: Pap Smr OTHR DR: ORDERED: Pap Smear Interpretation Satisfactory for evaluation. Negative for intraepithelial lesion or malignancy. Clinical Information LMP: Unknown date Previous PAP test: Unknown date/findings Other history: Hx cervical CA 5y ago Material Received ThinPrep-Vaginal/Cervical ----- ------- Signed (signature on file) CLARISA Lu (ASCP) 01/02/24 1154 ----- ------- END OF REPORT Ingrid Wolfe MD LAB CYTOLOGY ORDERABLES Final Result [facility] [address] [place] [phone] * (ABNORMAL) Hm Colonoscopy (04/27/2023) Colonoscopy Abnormal(A ) Normal [facility] Ingrid Wolfe MD HEALTH MAINTENANCE Final Result Performing Organization Address [facility]/ZIP Co de Phone Number [facility] [address] [place] [phone] * Image-Guided Pap with Age-Based Screening??with CT/NG,??Trichomonas (11/29/2022 10:52 AM EDT) Comment [employer] Comment: This order for age-based cervical cancer and STI screening follows ACOG guidelines(PB 168, 140, QJP345). See individual assays for performing site location. Clinical Information: HISTORY OF HYST DUE YUSUF [facility] LMP: NONE GIVEN [facility] Prev. PAP: YES [employer] Prev. BX: NONE GIVEN [facility] [facility] SOURCE: None given [employer] Statement Of Adequacy: SATISFACTORY FOR EVALUATION [employer] Interpretation/Re sult: Negative for intraepithelial lesion or malignancy. [employer] COMMENT: This Pap test has been evaluated with computer assisted technology. [employer] Student Life Advisor: Qu [employer] Comment: KF, CT(ASCP) CT screening location: [address] [address] Review Student Life Advisor: [employer] Comment: BLC,CT(ASCP) CT screening location: [address] [address] (Always Message) Que C2cubet Comment: EXPLANATORY NOTE: The Pap is a [...] HPV nRNA E6/E7 Not Detected Not Detected [employer] Comment: Methodology: Elevating Grader Operator-Mediated Amplification This assay detects E6/E7 viral messenger RNA (mRNA) from 14 high-risk HPV types (16,18,31,33,35,39,45,51,52,56,58,59,66,68). Cervical sources are required for HPV testing. If a vaginal source from a patient who has had a total hysterectomy with removal of cervix was submitted, please contact the testing laboratory for alternative testing options. For additional information, please refer to http://[employer]io [email or web address]/faq/ZZV078h8 (This link if provided for information/ educational purposes only.) Chlamydia trachomatis RNA, TMA, Urogenital NOT DETECTED NOT DETECTED [employer] Neisseria gonorrhoeae RNA, TMA, Urogenital NOT DETECTED NOT DETECTED [employer] (Always Message) Que [employer] Comment: The analytical performance characteristics of this assay, when used to test SurePath(TM) specimens have been determined by [employer]. The modifications have not been cleared or approved by the FDA. This assay has been validated pursuant to the CLIA regulations and is used for clinical purposes. For additional information, please refer to https://[employer]/faq/TVT878 (This link is being provided for information/ educational purposes only.) Trichomonas vaginalis, QL, TMA, PAP Vial NOT DETECTED NOT DETECTED [employer] Comment: The analytical performance characteristics of this assay have been determined by [employer]. The modifications have not been cleared or approved by the FDA. This assay has been validated pursuant to the CLIA regulations and is used for clinical purposes. For additional information, please refer to [email or web address]/ faq/Trichomonastma (This link is being provided for information/ educational purposes only.) Cytology specimen container (physical object) 11/29/2022 10:52 AM EDT 11/30/2022 12:36 AM EDT us Leeann [place]RO[place] LAB CYTOLOGY ORDERABLES F inal Result [facility] [address], [place] [address] [employer] [address] [place] [address] from Last 3 Months or Most Recently Relevant to Health Maintenance Insurance [facility] C[facility] AD[facility] Care Teams Furnace Utility Operator Relationship Specialty Start Date End Date Ingrid Wolfe MD [address] [place] [phone] PCP - General Internal Medicine 09/10/22 Nick Castellanos FNP [address] [place] [phone] Nurse Practitioner Family Medicine 07/04/23 Apolonia Mars care rep Director [employer] Frog Or Oyster Farmer 11/16/23
--- OUTSIDE RECORDS SUMMARY | 2025-04-18 13:07 | XMS_ITS | Encounter Summary ---
Author Organization [employer] Address [address] [place] [address] 7t [place] [address] Care Team Providers Care Cisco Unified Communications Engineer Name Role Phone Cheryl Fitzpatrick MD [...] with others, in a hotel, in a correction, living outside on the street, on a [...] Description 06/27/2025 9:00 AM EST Office Visit [facility] [address] [place] [address] Salena Garcia, ELLIS [address] [place] [address] documented as of this encounter Goals Goal [...] 04/16/2025 10:48 AM EDT COVID-19 ID NOW (AGUILAR) Routine 04/16/2025 10:48 AM EDT CULTURE, URINE, ROUTINE Routine 04/16/2025 12:00 AM EDT documented in this encounter Results * XR Shoulder 2+ Views Bilateral (04/16/2025 1:34 PM EDT) Anatomical Region Laterality Modality Upper Extremities, Shoulder Bilateral Radi ographic Imaging 04/16/2025 1:34 PM EDT Narrative 04/16/2025 2:43 PM EDT [address] [address] XRay Report Signed Patient: Lizet Cash MR# : [id number] : 1975 Acct:[id number] Age/Sex: 49 / F ADM Date: 04/16/25 Loc: HO.ED Attending Dr: Ordering Physician: Ernestina Mackey Date of Service: 04/16/25 Procedure(s): XR Shoulder Mirza min 2V Accession Number(s): [id number] cc: Cheryl Fitzpatrick MD; Ernestina Mackey Exam: 2 view bilateral [...] Piotr Rose MD 04/16/2025 02:40 PM EDT RP Dictated By: Piotr Rose MD Signed By: <Electronically signed by Piotr Rose MD in OV> 04/16/25 1440 DD/ 1334 TD/TT: 04/16/25 1433 Nursing Care Attendant: Procedure Note Donotuseinterpreter, Image - 04/16/[address] [address] XRay Report Signed Patient: Augusto Cash# : [id number] : 1975Acct:[id number] Age/Sex: 49 / FADM Date: 04/16/25 Loc: .ED Attending Dr: Ordering Physician: Ernestina Mackey Date of Service: 04/16/25 Procedure(s): XR Shoulder Mirza min 2V Accession Number(s): [id number] cc: Cheryl Fitzpatrick MD; Ernestina Mackey Exam: 2 view bilateral [...] 04/16/25 1440 DD/ 1334 TD/TT: 04/16/25 1433 Nursing Care Attendant: [facility] External Provider IMG XR PROCEDURES Final Result * (ABNORMAL) Urinalysis, Complete, with Reflex to Culture (04/16/2025 11:54 AM EDT) Color Urine Yellow [facility] Appearance Urine Clear [facility] PH 5.5 5.0 - 9.0 [facility] Glucose Urine UA >=1000(A) Negative mg/dL [facility] Urine Blood Negative Negative [facility] Specific [place] - Urine >=1.030(H) 1.005 - 1.025 [facility] Urine Protein Negative Neg-Trace mg/dL [facility] Urine Ketones Trace Negative mg/dL [facility] Nitrite Urine Negative Negative [facility] Leukocyte Esterase Urine Negative Negative [facility] RBC Urine 0-2 0 - 2 /HPF [facility] Urine WBC 6-10(A) 0 - 5 /HPF [facility] Urine Squamous Epithelial Cell 0-2 0 - 2 /HPF [facility] Urine Bacteria None Seen None Seen [facility] Hyaline Casts, Urine 3-5 0 - 2 /LPF [facility] 04/16/2025 11:5 4 AM EDT 04/16/2025 12:13 PM EDT Narrative [facility] - 04/16/2025 12:23 PM EDT [id number], Clean Catch Generic External Data Provider LAB URINE ORDERAB LES Final Result Performing Organization Address [facility] Co de Phone Number [facility] [address] [place] [address] [phone] * hCG, Total, Quantitative (04/16/2025 11:46 AM EDT) HCG Quantitative <2 mIU/mL [facility] Comment:Weeks post LMP Appro ximate hCG(Last Menstrual Period) Range (mIU/ml)3 - 4 weeks 9 - 1304 - 5 weeks 75 - 2,6005 - 6 weeks 850 - 20,8006 - 7 weeks 4000 - 100,2007 - 12 weeks 11,500 - 289,37306 - 16 weeks 18,300 - 137,80267 - 29 weeks (2nd trimester) 1,400 - 53,68130 - 41 weeks (3rd trimester) 940 - [...] ORDERAB LES Final Result Performing Organization Address [facility] Co de Phone Number [facility] [address] [place] [address] [phone] * High Sensitivity Troponin I (04/16/2025 11:46 AM EDT) Pathologist [facility] TROPONIN I HIGH SENSITIVITY <2.7 <3.5 - 17.0 ng/L [facility] Comment:The Aguilar high sens itivity Troponin-I results should beused in conjunction with other diagnostic information suchas ECG, clinical observations and information, and patientsymptoms to aid in the diagnosis of CT. 04/16/2025 11:4 6 AM EDT 04/16/2025 11:50 AM EDT Generic External Data Provider LAB BLOOD ORDERAB LES Final Result Performing Organization Address [facility] Co de Phone Number [facility] [address] [place] [phone] * (ABNORMAL) Creatine Kinase, Total (04/16/2025 11:46 AM EDT) Pathologist [facility] Creatine Kinase Total 393(H) 26 - 140 U/L [facility] 04/16/2025 11:4 6 AM EDT 04/16/2025 11:50 AM EDT Generic External Data Provider LAB BLOOD ORDERAB LES Final Result Performing Organization Address [facility] de Phone Number [facility] [address] [place] [phone] * Magnesium (04/16/2025 11:46 AM EDT) [facility] Magnesium 2.1 1.6 - 2.6 mg/dL [facility] 04/16/2025 11:4 6 AM EDT 04/16/2025 11:50 AM EDT Generic External Data Provider LAB BLOOD ORDERAB LES Final Result Performing Organization Address [facility] de Phone Number [facility] [address] [place] [phone] * (ABNORMAL) Comprehensive Metabolic Panel (04/16/2025 11:46 AM EDT) [facility] Sodium 138 135 - 145 mmol/L [facility] Potassium 3.7 3.3 - 5.1 mmol/L [facility] Chloride 108 96 - 108 mmol/L [facility] Carbon Dioxide 22 22 - 29 mmol/L [facility] Anion Gap 12 12 - 20 [facility] Urea Nitrogen (BUN) 13 9 - 16 mg/dL [facility] Creatinine, Serum 0.55 0.5 - 1.4 mg/dL [facility] Creatinine Clr Calc Pharmacy 138.6 [facility] Comment:Provided height and weight: 167.64 cm,88.451 kg.eGFR (calculated from the MDRD study equation) and eCrCl(calculated from the Cockcroft-Gault equation) are based ondifferent parameters and may not yield comparable results.If eCrCl result is absurd, please check patient'sheight/weight. Estimated Glomerular Filt Rate >60 [facility] Comment:Chronic Kidney Disea se: Estimated GFR < 60 mL/min/1.11i5Omxvyd Kidney Disease: Estimated GFR < 15 mL/min/1.73m2 Glucose 152(H) 60 - 115 mg/dL [facility] Calcium 9.2 8.4 - 10.2 mg/dL [facility] Bilirubin, Total 0.2 0.0 - 1.0 mg/dL [facility] Aspartate Amino Transferase 33(H) 5 - 31 U/L [facility] Alanine Aminotransferase 51(H) 0 - 31 U/L [facility] Total Protein 7.2 6.5 - 8.0 g/dL [facility] Albumin Level 4.6 3.5 - 5.0 g/dL [facility] Alkaline Phosphatase 84 39 - 117 U/L [facility] 04/16/2025 11:4 6 AM EDT 04/16/2025 11:50 AM EDT us Generic External Data Provider LAB BLOOD ORDERAB LES Final Result [facility] [address] [place] [phone] * CBC auto differential (04/16/2025 11:46 AM EDT) White Blood Count 6.2 4.8 - 10.8 X10*3/uL [facility] Red Blood Count 4.71 4.20 - 5.50 X10*6/uL [facility] Hemoglobin 13.8 12.0 - 16.0 g/dl [facility] Hematocrit 40.9 37.0 - 47.0 % [facility] Mean Corpuscular Volume 86.8 80.0 - 98.0 fL [facility] Mean Corpuscular Hemoglobin 29.3 27.0 - 33.0 pg [facility] Mean Corpuscular HGB Conc 33.7 31.0 - 35.0 g/dl [facility] Red Cell Distribution Width 14.4 11.0 - 16.0 % [facility] Platelet Count 288 160 - 400 X10*3/uL [facility] Mean Platelet Volume 10.2 9.4 - 12.3 fL [facility] Neutrophils Percent Auto 55.0 45 - 73 % [facility] Imm Gran Pct Auto 0.2 0.0 - 0.4 % [facility] Lymphocytes Percent Auto 34.7 20 - 40 % [facility] Monocytes Percent Auto 6.5 2 - 11 % [facility] Eosinophils Percent Auto 2.8 0 - 4 % [facility] Basophils Percent Auto 0.8 0 - 2 % [facility] NRBC Pct Auto 0.0 0.0 - 0.2 /100WBC [facility] Neutrophils Absolute Auto 3.4 2.0 - 8.3 x10*3/uL [facility] Imm Gran Abs Auto 0.01 0.00 - 0.03 X10*3/uL [facility] Lymphocytes Absolute Auto 2.1 1.2 - 4.9 X10*3/uL [facility] Monocytes Absolute Auto 0.4 0.1 - 1.2 X10*3/uL [facility] Eosinophils Absolute Auto 0.2 0.0 - 0.4 X10*3/uL [facility] Basophils Absolute Auto 0.1 0.0 - 0.2 X10*3/uL [facility] NRBC Abs Auto 0.000 0.0 - 0.012 X10*3/uL [facility] 04/16/2025 11:4 6 AM EDT 04/16/2025 11:50 AM EDT Generic External Data Provider LAB BLOOD ORDERAB LES Final Result Performing Organization Address [facility] Co de Phone Number [facility] [address] [place] [phone] * Influenza A B2 ID NOW (Aguilar) (04/16/2025 10:48 AM EDT) IDNOW SERIAL# [id number] [facility] Influenza A Negative Negative [facility] Influenza B2 Negative Negative [facility] Influenza A B2 Note See Note [facility] Comment:The Aguilar ID NOW In fluenza [...] GENERAL ORDERABLES Final Result Performing Organization Address [facility] Co de Phone Number [facility] [address] [place] [phone] * Strep A Nucleic Acid (04/16/2025 10:48 AM EDT) IDNOW SERIAL# [id number] [facility] Strep A Nucleic Acid Negative Negative [facility] Comment:All test results mus t be [...] GENERAL ORDERABLES Final Result Performing Organization Address City/State/[facility] Co de Phone Number [facility] [address] [place] [phone] * COVID-19 ID NOW (AGUILAR) (04/16/2025 10:48 AM EDT) IDNOW SERIAL# [id number] [facility] COVID-19 TEST Negative Negative [facility] COVID-19 NOTE See Note [facility] Comment: Results are for the identification of SARS-CoV2 RNA. TheSARS-CoV2 RNA is generally detectable in respiratory samplesduring the acute phase of infection. Positive results areindicative of the presence of SARS-CoV-2 RNA; clinicalcorrelation with patient history and other diagnosticinformation is necessary to determine patient infectionstatus. Positive results do not rule out bacterial infectionor co- infection with other viruses.Testing facilities within the [facility] and [facility] are required to report all positive results [...] use by authorized laboratories.Testing performed on the Aguilar ID NOW utilizing NAAT. 04/16/2025 10:4 8 AM EDT 04/16/2025 10:53 AM EDT us Generic External Data Provider LAB MOLECULAR ERIC GNOSTICS ORDERABLES Final Result Performing Organization Address City/State/[facility] Co de Phone Number [facility] [address] [place] [phone] * Culture, Urine, Routine (04/16/2025 12:00 AM EDT) Urine Urine specimen obtained by clean catch procedure / Unknown 04/16/2025 04/16/2025 Comment:UACC Narrative [facility] - 04/17/2025 11:59 AM EDT Urine Culture Report Result Urine Culture 10,000 to 50,000 cfu/ml Urine Culture Mixed bacterial kerri characteristic of Urine Culture urogenital contamination. Specimen Source: Urine clean catch us Generic External Data Provider LAB MICROBIOLOGY - GENERAL ORDERABLES Final Result Performing Organization Address [facility] Co de Phone Number [facility] [address] [place] [address] [phone] documented in this encounter Visit Diagnoses Not on filedocumented in this encounter Additional Health Concerns Assessment Noted Time PHQ-9 Depression Total Score: 12 025 10:40 AM EDT documented as of this encounter Care Teams Cisco Unified Communications Engineer Relationship Specialty Start Date End Date Cheryl Fitzpatrick MD [address] [place] [phone] PCP - General Internal Medicine 09/10/22 Nick Castellanos FNP [address] [place] [address] Nurse Practitioner Family Medicine 07/04/23 Apolonia Mars women's health care nurse practitioner Delinquent Notice Machine OperatorMission Manager 11/16/23 documented as of this encounter
--- OUTSIDE RECORDS SUMMARY | 2025-04-18 13:07 | XMS_ITS | Encounter Summary ---
Author Organization [employer] Address [address] [place] [address] 7t [place] [address] Care Team Providers Care Banana Handler Name Role Phone Cheryl Fitzpatrick MD Primary Care Provider + Nick Castellanos Unavailable Unavailable Reason for Visit * Reason Onset Date Comments PT1 11/19/2024 Encounter Details Date Type Department Care Team (Late st Contact Info) Description 11/19/2024 Telephone [facility] [address] [place], [place] [phone] Cheryl Fitzpatrick MD [address] [place], [place] [phone] PT1 Social History Tobacco Use Types Packs/Day [...] Yes Provider name or facility name: [address] [place] [address]. [facility] Escort needed: Y/N: No Do you have a wheelchair: Y/N: No Cane If yes- Manual or electric: N/A Visits: (5x monthly) 2 of 4 Patient calling requesting PT1 Home Address verified: Y/N: Yes Provider name or facility name: [address] [place] [address] - [facility] Escort needed: Y/N: No Do you have a wheelchair: Y/N: No Cane If yes- Manual or electric: N/A Visits: (2x monthly) 3 of 4 Patient calling requesting PT1 Home Address verified: Y/N: Yes Provider name or facility name: [address] [place] [address] - [facility] Escort needed: Y/N: No Do you have a wheelchair: Y/N: No Cane If yes- Manual or electric: N/A Visits: (2x monthly) 4 of 4 Patient calling requesting PT1 Home Address verified: Y/N: Yes Provider name or facility name: [address] [place] [address] [place] [address] [facility] Escort needed: Y/N: No Do you have a wheelchair: Y/N: No Cane If yes- Manual or electric: N/A Visits: (7x monthly) documented in this encounter Plan of Treatment Upcoming Encounters Date Type Department Care Team (Late st Contact Info) Description 06/27/2025 9:00 AM EST Office Visit [facility] [address] [place] [address] Salena Garcia OD [address] [place] [address] documented as of this encounter Goals Goal [...] documented as of this encounter Care Teams Banana Handler Relationship Specialty Start Date End Date Cheryl Fitzpatrick MD [address] [place] [address] PCP - General Internal Medicine 09/10/22 Nick Castellanos FNP [address] [facility] [place] [address] Nurse Practitioner Family Medicine 07/04/23 Apolonia Mars infant caregiver Fisherman HelperChief Meteorologist 11/16/23 documented as of this encounter
--- OUTSIDE RECORDS SUMMARY | 2025-04-18 13:07 | XMS_ITS | Encounter Summary ---
Author Organization [employer] Address [address] [facility] 7t [place] [address] Care Team Providers Care Library Media Specialist Name Role Phone Cheryl Fitzpatrick MD Primary Care Provider + Nick Castellanos Unavailable Unavailable Reason for Visit * Reason Comments Med Refill Encounter Details Date Type Department Care Team (Late st Contact Info) Description 04/18/2025 Refill [facility] [address] [place] [address] Alejandra Dyer MD [address] [place], [place] [phone] Type 2 diabetes mellitus with hyperglycemia, with long-term current use of insulin ([facility] [place] [facility]) Social History Tobacco Use Types Packs/Day Years [...] 9:00 AM EST Office Visit [facility] [address] [place] [address] Salena Garcia, ELLIS [address] [place] [address] documented as of this encounter Goals Goal Patient Goal Type Associated Problems Recent Progress Patient-Stated? Author Blood Pressure < 140/90 Blood Pressure 110/70(2024 9:50 AM EDT) No Kenzie Tran PharmD Hemoglobin A1c < 7 Result Component 8.2( 10:41 AM EDT) Kenzie Miller PharmD documented as of this encounter Visit Diagnoses Diagnosis Type 2 diabetes mellitus with hyperglycemia, with long-term current use of insulin ([facility] [place] [facility]) documented in this encounter Additional Health Concerns Assessment Noted Time PHQ-9 Depression Total Score: 12 025 10:40 AM EDT documented as of this encounter Care Teams Library Media Specialist Relationship Specialty Start Date End Date Cheryl Fitzpatrick MD [address] [place] [phone] PCP - General Internal Medicine 09/10/22 Nick Castellanos FNP [address] [place] [address] Nurse Practitioner Family Medicine 07/04/23 Apolonia Mars medical care evaluation specialist Rn Long Term CareHam Stripper 11/16/23 documented as of this encounter
--- OUTSIDE RECORDS SUMMARY | 2025-04-18 13:07 | XMS_ITS | Encounter Summary ---
Author Organization [employer] Address [address] [place] [address] 7t [place] [address] Care Team Providers Care Motor Hotel Manager Name Role Phone Cheryl Fitzpatrick MD Primary Care Provider + Nick Castellanos Unavailable Unavailable Reason for Visit * Reason Onset Date Comments Paperwork/Forms 10/19/2023 Encounter Details Date Type Department Care Team (Late st Contact Info) Description 10/19/2023 Telephone [facility] [address] [place], [place] [phone] Cheryl Fitzpatrick MD [address] [place], [place] [phone] Paperwork/Forms Social History Tobacco Use Types Packs/Day [...] to welfare before they close her case. Timber Treating Tank Operator advised pt she has an appointment this Tuesday (10/19) with provider. Please contact pt at [phone] (Latvian) documented in this encounter Plan of Treatment Upcoming Encounters Date Type Department Care Team ([facility] st Contact Info) Description 06/27/2025 9:00 AM EST Office Visit [facility] [address] [place] [phone] Salena Garcia, OD [address] [place] [address] documented as of this encounter Goals Goal [...] documented as of this encounter Care Teams Motor Hotel Manager Relationship Specialty Start Date End Date Cheryl Fitzpatrick MD [address] [place] [address] PCP - General Internal Medicine 09/10/22 Nick Castellanos FNP [address] [place] [address] Nurse Practitioner Family Medicine 07/04/23 [address] Shay Movie Projectionist 11/11/23 02/10/24 Apolonia Mars hospice care sales consultant Movie ProjectionistTrack Supervisor 11/16/23 documented as of this encounter
--- OUTSIDE RECORDS SUMMARY | 2025-04-18 13:07 | XMS_ITS | Encounter Summary ---
Author Organization [employer] Address [address] [place] [address] 7t [place] [address] Care Team Providers Care Grass Farmer Name Role Phone Cheryl Fitzpatrick MD Primary Care Provider + Nick Castellanos Unavailable Unavailable Reason for Visit * Reason Onset Date Comments PT1 03/15/2024 Encounter Details Date Type Department Care Team (Late st Contact Info) Description 03/15/2024 Telephone [facility] [address] [place], [place] [phone] Cheryl Fitzpatrick MD [address] [place], [place] [phone] PT1 Social History Tobacco Use Types Packs/Day [...] states is homeless and is currently at [address] [place] [address] Provider name or facility name: [facility] Facility Address: [address] [place] [address] Escort needed: Y/N: No Do you have a wheelchair: Y/N: No If yes- Manual or electric: no Visits: 5-6 visit a month documented in this encounter Plan of Treatment Upcoming Encounters Date Type Department Care Team ([facility] st Contact Info) Description 06/27/2025 9:00 AM EST Office Visit [facility] [address] [place] [address], [place] [address] Salena Garcia, OD [address] [place] [address] documented as of this encounter Goals Goal [...] documented as of this encounter Care Teams Grass Farmer Relationship Specialty Start Date End Date Cheryl Fitzpatrick MD [address] [place] [address] PCP - General Internal Medicine 09/10/22 Nick Castellanos FNP [address] [place] [address] Nurse Practitioner Family Medicine 07/04/23 Apolonia Mars healthcare manager Student Affairs DeanLawn Mower Mechanic 11/16/23 documented as of this encounter
--- OUTSIDE RECORDS SUMMARY | 2025-04-18 13:07 | XMS_ITS | Encounter Summary ---
Author Organization [employer] Address [address] [place] [address] [address] [place] [address] Care Team Providers Care Asphalt Paver Operator Name Role Phone Cheryl Fitzpatrick MD Primary Care Provider + Nick Castellanos Unavailable Unavailable Reason for Visit * Reason Comments Med Refill Encounter Details Date Type Department Care Team (Late st Contact Info) Description 09/29/2023 Refill [facility] [address] [place] [address] Nick Castellanos FNP Type 2 diabetes mellitus with hyperglycemia, with long-term current use of insulin ([facility]) Social History Tobacco Use Types Packs/Day [...] Description 06/27/2025 9:00 AM EST Office Visit [facility] [address] [place] [address] Salena Garcia OD [address] [place] [address] documented as of this encounter Goals Goal [...] hyperglycemia, with long-term current use of insulin ([facility]) documented in this encounter Additional Health Concerns Assessment Noted Time PHQ-9 Depression Total Score: 8 08/23/19 24 11:27 AM EST documented as of this encounter Care Teams Asphalt Paver Operator Relationship Specialty Start Date End Date Cheryl Fitzpatrick MD [address] [place] [address] PCP - General Internal Medicine 09/10/22 Nick Castellanos FNP [address] [place] [address] Nurse Practitioner Family Medicine 07/04/23 [address] Shay Analytics Analyst 11/11/23 02/10/24 Apolonia Mars child care counselor Analytics AnalystCasualty Insurance Claim Adjuster 11/16/23 documented as of this encounter
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
--- OUTSIDE RECORDS SUMMARY | 2025-04-18 13:07 | XMS_ITS | Encounter Summary ---
Author Organization [employer] Address [address] [place] [address] 7t [place] [address] Care Team Providers Care Vp Business Development Name Role Phone Cheryl Fitzpatrick MD Primary Care Provider + Nick Castellanos Unavailable Unavailable Reason for Visit * Reason Comments Med Refill Encounter Details Date Type Department Care Team (Late st Contact Info) Description 09/29/2023 Refill [facility] MEDICINE 230 [place], [place] [phone] Cheryl Fitzpatrick MD 230 [place], [place] [phone] Anxiety; Migraine with aura and without status [...] 9:00 AM EST Office Visit [facility] OPTOMETRY 267 [place] [address] Salena Garcia, ELLIS [address] [place] [address] documented as of this encounter Goals Goal [...] documented as of this encounter Care Teams Vp Business Development Relationship Specialty Start Date End Date Cheryl Fitzpatrick MD 230 [place] [address] PCP - General Internal Medicine 09/10/22 Nick Castellanos FNP 230 [place] [address] Nurse Practitioner Family Medicine 07/04/23 Court Shay Tax Professional 11/11/23 02/10/24 Apolonia Mars technical healthcare consultant Tax ProfessionalCrate Icer 11/16/23 documented as of this encounter
--- OUTSIDE RECORDS SUMMARY | 2025-04-18 13:07 | XMS_ITS | Encounter Summary ---
Author Organization [employer] Address [address] [place] [address] 7t [place] [address] Care Team Providers Care Car Retarder Operator Name Role Phone Cheryl Fitzpatrick MD Primary Care Provider + Nick Castellanos Unavailable Unavailable Reason for Visit * Reason Comments Med Refill Encounter Details Date Type Department Care Team (Late st Contact Info) Description 09/29/2023 Refill [facility] MEDICINE 230 [place], [place] [phone] Cheryl Fitzpatrick MD 230 [place], [place] [phone] Anxiety; Migraine with aura and without status [...] Description 06/27/2025 9:00 AM EST Office Visit [facility] OPTOMETRY 267 [place] [address] Salena Garcia, ELLIS [address] [place] [address] documented as of this encounter Goals Goal [...] documented as of this encounter Care Teams Car Retarder Operator Relationship Specialty Start Date End Date Cheryl Fitzpatrick MD 230 [place] [address] PCP - General Internal Medicine 09/10/22 Nick Castellanos FNP 230 [place] [address] Nurse Practitioner Family Medicine 07/04/23 Court Shay Milliner Helper 11/11/23 02/10/24 Apolonia Mars memory care program resident Milliner HelperKickboxing Instructor 11/16/23 documented as of this encounter
--- OUTSIDE RECORDS SUMMARY | 2025-04-18 13:07 | XMS_ITS | Encounter Summary ---
Author Organization [email or web address] Address [address] [place] [address] 7t [place] [address] Care Team Providers Care Final Rail Cutter Name Role Phone Cheryl Fitzpatrick MD Primary Care Provider + Nick Castellanos Unavailable Unavailable Reason for Visit * Reason Comments Med Refill Encounter Details Date Type Department Care Team (Late st Contact Info) Description 09/13/2024 Refill [facility] MEDICINE 230 [place], [place] [phone] Cheryl Fitzpatrick MD 230 [place], [place] [phone] Anxiety; Migraine with aura and without status [...] Description 06/27/2025 9:00 AM EST Office Visit [facility] OPTOMETRY 267 [place] [address] Salena Garcia, ELLIS [address] [place] [address] documented as of this encounter Goals Goal [...] documented as of this encounter Care Teams Final Rail Cutter Relationship Specialty Start Date End Date Cheryl Fitzpatrick MD 230 [place] [address] PCP - General Internal Medicine 09/10/22 Nick Castellanos FNP 230 [place] [address] Nurse Practitioner Family Medicine 07/04/23 Apolonia Mars healthcare corporate account director Physical Security EngineerBreakfast Host 11/16/23 documented as of this encounter
--- OUTSIDE RECORDS SUMMARY | 2025-04-18 13:07 | XMS_ITS | Encounter Summary ---
Author Organization [employer] Address [address] [place] [address] 7t [place] [address] Care Team Providers Care Support Staff Name Role Phone Cheryl Fitzpatrick MD Primary Care Provider + Nick Castellanos Unavailable Unavailable Reason for Visit * Reason Onset Date Comments PT-1 10/22/2024 Encounter Details Date Type Department Care Team (Late st Contact Info) Description 10/22/2024 Telephone [facility] MEDICINE 230 [place], [place] [phone] Cheyrl Fitzpatrick MD 230 [place], [place] [phone] PT-1 (/) Social History Tobacco Use Types [...] Y/N: Yes Provider name or facility name: [facility] Escort needed: Do you have a wheelchair: Y/N: No If yes- Manual or electric: Visits: (5 x Mothly) Patient calling requesting PT1 Home Address verified: Y/N: Yes Provider name or facility name: [facility], [address] [place] [address] Escort needed: Y/N: No Do you have a wheelchair: Y/N: No If yes- Manual or electric: Visits: (5 x Monthly) Patient calling requesting PT1 Home Address verified: Yes Provider name or facility name: Direct Marketing Coordinator, [address] [facility] [address], [place] [address] Escort needed: Y/N: No Do you have a wheelchair: Y/N: No If yes- Manual or electric: Visits: (2 x Monthly) documented in this encounter Plan of Treatment Upcoming Encounters Date Type Department Care Team (Late st Contact Info) Description 06/27/2025 9:00 AM EST Office Visit [facility] OPTOMETRY 267 [place] [address] Salena Garcia, OD 267 [place] [address] documented as of this encounter Goals Goal [...] documented as of this encounter Care Teams Support Staff Relationship Specialty Start Date End Date Cheryl Fitzpatrick MD 230 [place] [address] PCP - General Internal Medicine 09/10/22 Nick Castellanos FNP [address] [place], [place] Nurse Practitioner Family Medicine 07/04/23 Apolonia Mars care assistant Enterprise Systems ManagerResults Technician 11/16/23 documented as of this encounter
--- OUTSIDE RECORDS SUMMARY | 2025-04-18 13:07 | XMS_ITS | Encounter Summary ---
Author Organization [employer] Address [address] [place] [address] 7t [place] [address] Care Team Providers Care Card Hand Name Role Phone Cheryl Fitzpatrick MD Primary Care Provider + Nick Castellanos Unavailable Unavailable Reason for Visit * Reason Comments Med Refill Encounter Details Date Type Department Care Team (Late st Contact Info) Description 11/10/2023 Refill [facility] MEDICINE 230 [place], [place] [phone] Nick Castellanos FNP Type 2 diabetes mellitus with hyperglycemia, with long-term current use of insulin ([facility]) Social History Tobacco Use Types Packs/Day [...] Description 06/27/2025 9:00 AM EST Office Visit [facility] OPTOMETRY 267 [place] [address] Salena Garcia, ELLIS [address] [place] [address] documented as of this encounter Goals Goal [...] of insulin ([facility]) documented in this encounter Additional Health Concerns Assessment Noted Time PHQ-9 Depression Total Score: 11 024 9:34 AM EST documented as of this encounter Care Teams Card Hand Relationship Specialty Start Date End Date Cheryl Fitzpatrick MD 230 [place] [address] PCP - General Internal Medicine 09/10/22 Nick Castellanos FNP 230 [place] [address] Nurse Practitioner Family Medicine 07/04/23 Court Shay Technical Maintenance Technician 11/11/23 02/10/24 Apolonia Mars child care Technical Maintenance TechnicianAppetizer Packer 11/16/23 documented as of this encounter
--- OUTSIDE RECORDS SUMMARY | 2025-04-18 13:07 | XMS_ITS | Encounter Summary ---
Author Organization [employer] Address [address] [place] [address] 7t [place] [address] Care Team Providers Care Supervisor Diagnostic Name Role Phone Cheryl Fitzpatrick MD Primary Care Provider + Nick Castellanos Unavailable Unavailable Encounter Details Date Type Department Care Team (Late st Contact Info) Description 09/11/2024 Telephone [facility] MEDICINE 230 [place], [place] [phone] Cheryl Fitzpatrick MD 230 [place], [place] [phone] Social History Tobacco Use Types Packs/Day Years [...] [facility] OPTOMETRY 267 [place] [address] Salena Garcia, ELLIS [address] [place] [address] documented as of this encounter Goals Goal [...] as of this encounter Care Teams Supervisor Diagnostic Relationship Specialty Start Date End Date Cheryl Fitzpatrick MD [address] [place] [address] PCP - General Internal Medicine 09/10/22 Nick Castellanos FNP [address] [place] [address] Nurse Practitioner Family Medicine 07/04/23 Apolonia Mars resident care technician Tailing Machine OperatorDirector Product Safety 11/16/23 documented as of this encounter
--- OUTSIDE RECORDS SUMMARY | 2025-04-18 13:07 | XMS_ITS | Encounter Summary ---
Author Organization [employer] Address [address] [place] [address] 7t [place] [address] Care Team Providers Care Shellacker Name Role Phone Cheryl Fitzpatrick MD Primary Care Provider + Nick Castellanos Unavailable Unavailable Reason for Visit * Reason Onset Date Comments cx scheduled appt 02/08/2025 Encounter Details Date Type Department Care Team (Late st Contact Info) Description 02/08/2025 Telephone [facility] ADULT DENTAL 230 [place], [place] [phone] Hema Hill DDS 230 [place], [place] [phone] cx scheduled appt Social History Tobacco Use [...] denture adjustment due to pain. However, front desk person C called that they were in the [...] pin worsens and persists. Provided phone number [phone] documented in this encounter Plan of Treatment Upcoming Encounters Date Type Department Care Team (Late st Contact Info) Description 06/27/2025 9:00 AM EST Office Visit [facility] OPTOMETRY [address] [place] [address] Salena Garcia, OD [address] [place] [address] documented as of this encounter Goals Goal [...] documented as of this encounter Care Teams Shellacker Relationship Specialty Start Date End Date Cheryl Fitzpatrick MD 230 [place] [address] PCP - General Internal Medicine 09/10/22 Nick Castellanos FNP [address] [place] [address] Nurse Practitioner Family Medicine 07/04/23 Apolonia Mars health care administrator Educational Fundraising DirectorDirector Drug 11/16/23 documented as of this encounter
--- OUTSIDE RECORDS SUMMARY | 2025-04-18 13:07 | XMS_ITS | Encounter Summary ---
Author Organization [employer] Address [address] [place] [address] 7t [place] [address] Care Team Providers Care Ip Litigation Paralegal Name Role Phone Cheryl Fitzpatrick MD Primary Care Provider + Nick Castellanos Unavailable Unavailable Reason for Visit * Reason Onset Date Comments PT1 10/27/2023 Encounter Details Date Type Department Care Team (Late st Contact Info) Description 10/27/2023 Telephone [facility] MEDICINE 230 [place], [place] [phone] Cheryl Fitzpatrick MD 230 [place], [place] [phone] PT1 Social History Tobacco Use Types Packs/Day [...] - 11/09/2023 1:24 PM EDT PT-1 Request [id number] Pending for [address] * Telephone Encounter - Maria De Jesus Epstein - 11/09/2023 1:20 PM EDT PT-1 Request [id number] Pending for [facility] * Telephone Encounter - Maria De Jesus Epstein - 11/09/2023 1:17 PM EDT PT-1 Request [id number] Pending For [facility] * Telephone Encounter - Shireen Johns - 10/27/2023 9:28 AM EST PT1 renewals Date: 11/09/2023 Time: 1:30 Visits: n/a Address: [address] [facility] [address] Facility: [facility] Wheel Chair: No Delivery Truck Driver Heavy Needed: No Date: n/a Time: n/a Visits: n/a Address: [address] [facility] [address] Facility: [facility] Specialties Wheel Chair: no Delivery Truck Driver Heavy Needed: no Date: n/a Time: n/a Visits: n/a Address: [address] [facility] Facility: Plate And Weld Inspector Wheel Chair: no Delivery Truck Driver Heavy Needed: no documented in this encounter Plan of Treatment Upcoming Encounters Date Type Department Care Team (Late st Contact Info) Description 06/27/2025 9:00 AM EST Office Visit [facility] OPTOMETRY 267 [place] [address] Salena Garcia OD 267 [place] [address] documented as of this encounter Goals Goal [...] documented as of this encounter Care Teams Ip Litigation Paralegal Relationship Specialty Start Date End Date Cheryl Fitzpatrick MD 230 [place] [address] PCP - General Internal Medicine 1/20/23 Nick Castellanos FNP [address] [place] [address] Nurse Practitioner Family Medicine 07/04/23 [address] Tv News Director 11/11/23 02/10/24 Apolonia Mars rn long term care Tv News DirectorTechnologies Division Chair 11/16/23 documented as of this encounter
--- OUTSIDE RECORDS SUMMARY | 2025-04-18 13:08 | XMS_ITS | Encounter Summary ---
Author Organization [employer] Address [address] [place] [address] 7t [place] [address] Care Team Providers Care Water Project Manager Name Role Phone Cheryl Fitzpatrick MD Primary Care Provider + Edu Leung PharmD Unavailable Nick Castellanos AUTOMATIC PRESSER Unavailable Unavailable Encounter Details Date Type Department Care Team (Late st Contact Info) Description 10/05/2022 Orders Only [facility] MEDICINE 230 [place], [place] [phone] Cheryl Fitzpatrick MD 230 [place], [place] [phone] Fibromyalgia (Primary Dx); Migraine with aura and [...] 9:00 AM EST Office Visit [facility] OPTOMETRY 267 [place] [address] Salena Garcia, ELLIS [address] [place] [address] documented as of this encounter Visit Diagnoses Diagnosis Fibromyalgia- Primary Unspecified myalgia and myositis Migraine with aura and without status migrainosus, not intractable documented in this encounter Additional Health Concerns Assessment Noted Time PHQ-9 Depression Total Score: 19 023 9:39 AM EST documented as of this encounter Care Teams Water Project Manager Relationship Specialty Start Date End Date Cheryl Fitzpatrick MD [address] [place] [address] PCP - General Internal Medicine 09/10/22 Edu Leung PharmD [address] [place] [address] Pharmacist Internal Medicine 06/14/23 06/28/23 Nick Castellanos FNP [address] [place] [address] Nurse Practitioner Family Medicine 07/04/23 [address] Sign Painter Apprentice 11/11/23 02/10/24 Apolonia Mars spiritual care coordinator Sign Painter ApprenticeLightout Examiner 11/16/23 documented as of this encounter
--- OUTSIDE RECORDS SUMMARY | 2025-04-18 13:08 | XMS_ITS | Encounter Summary ---
Author Organization [employer] Address [address] [place] [address] 7t [place] [address] Care Team Providers Care Administrative Support Technician Name Role Phone Cheryl Fitzpatrick MD Primary Care Provider + Nick Castellanos Unavailable Unavailable Reason for Visit * Reason Onset Date Comments Created in error 03/20/2024 Encounter Details Date Type Department Care Team (Late st Contact Info) Description 03/20/2024 Telephone [facility] MEDICINE 230 [place], [place] [phone] Cheryl Fitzpatrick MD 230 [place], [place] [phone] Created in error Social History Tobacco Use [...] Description 06/27/2025 9:00 AM EST Office Visit [facility] OPTOMETRY [address] [place] [address] Salena Garcia, ELLIS [address] [place] [address] documented as of this encounter Goals Goal [...] documented as of this encounter Care Teams Administrative Support Technician Relationship Specialty Start Date End Date Cheryl Fitzpatrick MD 230 [place] [address] PCP - General Internal Medicine 09/10/22 Nick Castellanos FNP 230 [place] [address] Nurse Practitioner Family Medicine 07/04/23 Apolonia Mars transitional care nurse Steel Plate PrinterPhp Mysql Web Developer 11/16/23 documented as of this encounter
--- OUTSIDE RECORDS SUMMARY | 2025-04-18 13:08 | XMS_ITS | Encounter Summary ---
Author Organization [employer] Address [address] [place] [address] [address]t [place] [address] Care Team Providers Care Brass Plater Name Role Phone Cheryl Fitzpatrick MD Primary Care Provider + Edu Leung PharmD Unavailable [phone] Nick Castellanos MONEY MARKET DEALER Unavailable Unavailable Reason for Visit * Reason Comments Med Refill Encounter Details Date Type Department Care Team (Late st Contact Info) Description 12/09/2022 Refill [facility] MEDICINE 230 [place], [place] [phone] Cheryl Fitzpatrick MD 230 [place], [place] [phone] Type 2 diabetes mellitus with hyperglycemia, with long-term current use of insulin ([facility]); Anxiety Social History Tobacco Use Types Packs/Day [...] 06/27/2025 9:00 AM EST Office Visit [facility] OPTOMETRY [address] [place] [address] Salena Garcia, OD [address] [place] [address] documented as of this encounter Visit Diagnoses Diagnosis Type 2 diabetes mellitus with hyperglycemia, with long-term current use of insulin ([facility]) Anxiety Anxiety state, unspecified documented in this encounter Additional Health Concerns Assessment Noted Time PHQ-9 Depression Total Score: 9 11/16/19 10:11 AM EDT documented as of this encounter Care Teams Brass Plater Relationship Specialty Start Date End Date Cheryl Fitzpatrick MD 230 [place] [address] PCP - General Internal Medicine 09/10/22 Edu Leung PharmD [address] [place] [address] Pharmacist Internal Medicine 06/14/23 06/28/23 Nick Castellanos FNP [address] [place] [address] Nurse Practitioner Family Medicine 07/04/23 [address] Laminating Machine Tender 11/11/23 02/10/24 Apolonia Mars lawn care specialist Laminating Machine TenderDocumentation Billing Clerk 11/16/23 documented as of this encounter
--- OUTSIDE RECORDS SUMMARY | 2025-04-18 13:08 | XMS_ITS | Encounter Summary ---
Author Organization [employer] Address [address] [place] [address] 7t [place] [address] Care Team Providers Care Media Planner Name Role Phone Cheryl Fitzpatrick MD Primary Care Provider + Edu Leung PharmD Unavailable [phone] Nick Castellanos FOOD SERVICE STEWARD Unavailable Unavailable Reason for Visit * Reason Comments Med Refill Encounter Details Date Type Department Care Team (Late st Contact Info) Description 12/18/2022 Refill [facility] [address] [place] [address] Marybel Webster MD [address] [place] [address] Social History Tobacco Use Types Packs/Day Years [...] Description 06/27/2025 9:00 AM EST Office Visit [facility] [address] [place] [address] Salena Garcia, ELLIS [address] [place] [address] documented as of this encounter Visit Diagnoses Not on filedocumented in this encounter Additional Health Concerns Assessment Noted Time PHQ-9 Depression Total Score: 9 11/16/19 10:11 AM EDT documented as of this encounter Care Teams Media Planner Relationship Specialty Start Date End Date Cheryl Fitzpatrick MD [address] [place] [phone] PCP - General Internal Medicine 09/10/22 Edu Leung, Merari [address] [place] [phone] Pharmacist Internal Medicine 06/14/23 06/28/23 Nick Castellanos FNP [address] [place] [address] Nurse Practitioner Family Medicine 07/04/23 Court Shay Architectural Draftsperson 11/11/23 02/10/24 Apolonia Mars pet care worker Architectural DraftspersonBioprocess Engineer 11/16/23 documented as of this encounter
--- OUTSIDE RECORDS SUMMARY | 2025-04-18 13:08 | XMS_ITS | Encounter Summary ---
Author Organization [employer] Address [address] [place] [address] 7t [place] [address] Care Team Providers Care Chief Psychologist Name Role Phone Cheryl Fitzpatrick MD Primary Care Provider + Edu Leung PharmD Unavailable Nick Castellanos APPEALS AND GENERALIST CLERK Unavailable Unavailable Reason for Visit * Reason Comments Med Refill Encounter Details Date Type Department Care Team (Late st Contact Info) Description 10/05/2022 Refill [facility] [address] [place] [address] [phone] Name, MD Pradeep [address] [place] [phone] Type 2 diabetes mellitus with hyperglycemia, with long-term current use of insulin ([facility]); Anxiety Social History Tobacco Use Types [...] Description 06/27/2025 9:00 AM EST Office Visit [facility] [address] [place] [address] Salena Garcia, OD [address] [place] [address] documented as of this encounter Visit Diagnoses Diagnosis Type 2 diabetes mellitus with hyperglycemia, with long-term current use of insulin ([facility]) Anxiety Anxiety state, unspecified documented in this encounter Additional Health Concerns Assessment Noted Time PHQ-9 Depression Total Score: 19 023 9:39 AM EST documented as of this encounter Care Teams Chief Psychologist Relationship Specialty Start Date End Date Cheryl Fitzpatrick MD [address] [place] [address] PCP - General Internal Medicine 09/10/22 Edu Leung PharmD [address] [place] [phone] Pharmacist Internal Medicine 06/14/23 06/28/23 Nick Castellanos FNP [address] [place] [address] Nurse Practitioner Family Medicine 07/04/23 Court Shay Mirror Framer 11/11/23 02/10/24 Apolonia Mars field care manager Mirror FramerCan Handler 11/16/23 documented as of this encounter
--- OUTSIDE RECORDS SUMMARY | 2025-04-18 13:08 | XMS_ITS | Encounter Summary ---
Author Organization [employer] Address [address] [place] [address] 7t [place] [address] Care Team Providers Care Solution Designer Name Role Phone Cheryl Fitzpatrick MD Primary Care Provider + Edu Leung PharmD Unavailable Nick Castellanos FOUNTAIN WORKER Unavailable Unavailable Reason for Visit * Reason Onset Date Comments call back 10/05/2022 Encounter Details Date Type Department Care Team (Late st Contact Info) Description 10/05/2022 Telephone [facility] [address] [place], [place] [phone] Cheryl Fitzpatrick MD [address] [place], [place] [phone] call back Social History Tobacco Use Types [...] 9:00 AM EST Office Visit [facility] [address] [place] [address] Salena Garcia, OD [address] [place] [address] documented as of this encounter Visit Diagnoses Not on filedocumented in this encounter Additional Health Concerns Assessment Noted Time PHQ-9 Depression Total Score: 19 023 9:39 AM EST documented as of this encounter Care Teams Solution Designer Relationship Specialty Start Date End Date Cheryl Fitzpatrick MD [address] [place] [address] PCP - General Internal Medicine 09/10/22 Edu Leung PharmD [address] [place] [address] Pharmacist Internal Medicine 06/14/23 06/28/23 Nick Castellanos FNP [address] [place] [address] Nurse Practitioner Family Medicine 07/04/23 Court Shay Public Health Physician 11/11/23 02/10/24 Apolonia Mars specialist wound care Public Health PhysicianFurniture Cleaner 11/16/23 documented as of this encounter
--- OUTSIDE RECORDS SUMMARY | 2025-04-18 13:08 | XMS_ITS | Encounter Summary ---
Author Organization [employer] Address [address] [place] [address] 7t [place] [address] Care Team Providers Care Wax Specialist Name Role Phone Cheryl Fitzpatrick MD Primary Care Provider + Edu Leung PharmD Unavailable [phone] Nick Castellanos SENIOR SOURCING MANAGER Unavailable Unavailable Encounter Details Date Type Department Care Team (Late st Contact Info) Description 05/18/2023 Abstract [facility] [address] [place], [place] [phone] Hema Hill DDS [address] [place], [place] [phone] Social History Tobacco Use Types Packs/Day Years [...] Description 06/27/2025 9:00 AM EST Office Visit [facility] [address] [place] [address] Salena Garcia, OD [address] [place] [address] documented as of this encounter Goals Goal [...] documented as of this encounter Care Teams Wax Specialist Relationship Specialty Start Date End Date Cheryl Fitzpatrick MD [address] [place] [address] PCP - General Internal Medicine 09/10/22 Edu Leung PharmD [address] [place] [address] Pharmacist Internal Medicine 06/14/23 06/28/23 Nick Castellanos FNP [address] [place] [address] Nurse Practitioner Family Medicine 07/04/23 Court Shay Cardiology Nurse 11/11/23 02/10/24 Apolonia Mars emergency care tech Cardiology NurseField Sales Executive 11/16/23 documented as of this encounter
--- OUTSIDE RECORDS SUMMARY | 2025-04-18 13:08 | XMS_ITS | Encounter Summary ---
Author Organization [employer] Address [address] [place] [address] 7t [place] [address] Care Team Providers Care Party Director Name Role Phone Cheryl Fitzpatrick MD Primary Care Provider + Edu Leung PharmD Unavailable [phone] Nick Castellanos GAS LEAK INSPECTOR HELPER Unavailable Unavailable Encounter Details Date Type Department Care Team (Late st Contact Info) Description 11/12/2022 Abstract [facility] [address] [place], [place] [phone] Cheryl Fitzpatrick MD [address] [place], [place] [phone] Social History Tobacco Use Types Packs/Day Years [...] usual. Not at all 11/15/2022 10:11 AM Rsoa Dillard [place] Thoughts that you would be [...] [facility] [address] [place] [address] Salena Garcia OD [address] [place] [address] documented as of this encounter Visit Diagnoses Not on filedocumented in this encounter Additional Health Concerns Assessment Noted Time PHQ-9 Depression Total Score: 19 023 9:39 AM EST documented as of this encounter Care Teams Party Director Relationship Specialty Start Date End Date Cheryl Fitzpatrick MD [address] [place] [address] PCP - General Internal Medicine 09/10/22 Edu Leung, [place] [address] [place] [address] Pharmacist Internal Medicine 06/14/23 06/28/23 Nick Castellanos FNP [address] [place] [address] Nurse Practitioner Family Medicine 07/04/23 [address] Shay Needle Loom Tender 11/11/23 02/10/24 Apolonia Mars restorative care technician Needle Loom TenderVice President Of Manufacturing 11/16/23 documented as of this encounter
--- OUTSIDE RECORDS SUMMARY | 2025-04-18 13:08 | XMS_ITS | Encounter Summary ---
Author Organization [employer] Address [address] [place] [address] 7t [place] [address] Care Team Providers Care Rippler Name Role Phone Cheryl Fitzpatrick MD Primary Care Provider + Nick Castellanos Unavailable Unavailable Encounter Details Date Type Department Care Team (Late st Contact Info) Description 03/28/[address] [facility] [address] [place], [place] [phone] Cheryl Fitzpatrick MD [address] [place], [place] [phone] Social History Tobacco Use Types Packs/Day Years [...] with others, in a hotel, in a halfway, living outside on the street, on a [...] 06/27/2025 9:00 AM EST Office [address] [facility] [address] [place] [address] Salena Garcia, ELLIS [address] [place] [address] documented as of this encounter Goals Goal [...] documented as of this encounter Care Teams Rippler Relationship Specialty Start Date End Date Cheryl Fitzpatrick MD [address] [place] [address] PCP - General Internal Medicine 09/10/22 Nick Castellanos FNP [address] [place] [address] Nurse Practitioner Family Medicine 07/04/23 Apolonia Mars home care aide Communication CoordinatorWarning Coordination Meteorologist 11/16/23 documented as of this encounter
--- OUTSIDE RECORDS SUMMARY | 2025-04-18 13:08 | XMS_ITS | Encounter Summary ---
Author Organization [employer] Address [address] [place] [address] 7t [place] [address] Care Team Providers Care Perforator Typist Name Role Phone Cheryl Fitzpatrick MD Primary Care Provider + Edu Leung PharmD Unavailable Nick Castellanos SEO ASSISTANT Unavailable Unavailable Reason for Visit * Reason Onset Date Comments cancelling appt with OS 04/19/2023 Encounter Details Date Type Department Care Team (Late st Contact Info) Description 04/19/2023 Telephone [facility] [address] [place], [place] [phone] Hema Hill DDS [address] [place], [place] [phone] cancelling appt with OS Social History Tobacco [...] to be cancelled. Reached out to oral make up operator but could not reach her DR documented in this encounter Plan of Treatment Upcoming Encounters Date Type Department Care Team (Late st Contact Info) Description 06/27/2025 9:00 AM EST Office Visit [facility] [address] [place] [address] Salena Garcia, ELLIS [address] [place] [address] documented as of this encounter Goals Goal [...] documented as of this encounter Care Teams Perforator Typist Relationship Specialty Start Date End Date Cheryl Fitzpatrick MD [address] [place] [address] PCP - General Internal Medicine 09/10/22 Edu Leung, Merari [address] [place] [address] Pharmacist Internal Medicine 06/14/23 06/28/23 Nick Castellanos FNP [address] [place] [address] Nurse Practitioner Family Medicine 07/04/23 [address] Shay Apple Peeler Operator 11/11/23 02/10/24 Apolonia Mars healthcare economics manager Apple Peeler OperatorConsumer Affairs Manager 11/16/23 documented as of this encounter
== END 2025-04-18 12:42 | disposition home or self-care (01) ==
PROVIDERS: Emergency Provider Emergency Medicine; PCP Internal Medicine
DX: M25.512 Pain in left shoulder (principal); M25.511 Pain in right shoulder; L03.113 Cellulitis of right upper limb; B37.2 Candidiasis of skin and nail; E11.9 Type 2 diabetes mellitus without complications; Z79.4 Long term (current) use of insulin
CPT/HCPCS: 96372; 99283; 99284; J1885

== ENCOUNTER 2025-04-18 16:11 | Outpatient (AMB) | payer MEDICAID, SELFPAY ==
--- NOTE | 2025-04-18 16:13 | A.OFFVIS_ITS ---
Intake Visit Reasons: 3m/med review Intake Note: Patient is present for: telehealth 3mo med check Urology Medication:solifenacin, amitriptyline, pyridium Blood Thinner:NONE Regular Senior Care Provider Required: Yes Regular Senior Care Provider Name: Kasie Hein399 Information Interpreted: non-clinical & clinical Accompanied by: Significant Other Allergies [facility] Allergy (Verified 04/18/25 16:15) Unknown Sulfa (Sulfonamide Antibiotics) Allergy (Verified 04/18/25 16:15) Unknown Medication List - Last Reconciled 04/18/25 by Duane Elliott MD acetaminophen (Tylenol Extra Strength) 1,000 mg (2 x 500 mg) PO Q8H PRN amitriptyline 75 mg PO DAILY bupropion HCl XL 300 mg PO QAM cephalexin 500 mg PO QID 7 days clonazepam 2 mg PO TID cyclobenzaprine 10 mg PO TID PRN doxycycline hyclate 100 mg PO BID 5 days empagliflozin (Jardiance) 25 mg PO QAM gabapentin 800 mg PO TID ibuprofen 600 mg PO Q6H PRN insulin degludec (Tresiba FlexTouch U-100 insulin) 72 units subcut QPM insulin lispro protamin-lispro 100 unit/mL (50-50) (Humalog Mix 50-50 Insuln U- 100) 12 units subcut TID lidocaine 5% 1 patch topical DAILY losartan-hydrochlorothiazide 50-12.5 mg 1 tab PO DAILY nystatin 1 appl topical BID 14 days oxycodone-acetaminophen 5-325 mg 1 tab PO Q6H PRN pantoprazole 40 mg PO QAM quetiapine 200 mg PO DAILY topiramate 50 mg PO BID trazodone 150 mg PO BEDTIME HPI Comments Details: 04/18/25--The patient is a 49-year-old female presenting with urinary symptoms following a urethral bulking procedure conducted in May 2024 for stress urinary incontinence. started on vesicare 10 mg daily . The patient states that she took the VESIcare for about 2 weeks but felt that she was getting swelling in her legs so stopped the medication. She is on a diuretic that she takes during the day which causes her to go more frequently at that time later in the day the urinary symptoms of urgency are less and she is only getting up 1 time at night. I will discontinue the VESIcare we will mo nitor for bladder symptoms follow-up in 9 months 01/17/25-- Lizet is status post urethral bulking for stress urinary incontinence May 2024. History of Present Illness The patient is a 49-year-old female presenting with urinary symptoms following a urethral bulking procedure conducted in May 2024 for stress urinary incontinence. She reports improvement in leakage when coughing but increased urinary frequency and urgency. She occasionally experiences minor leakage when climbing stairs or when the urge is sudden. The patient notes intermittent hematuria, though the timing and frequency are inconsistent. No nocturnal enuresis is reported, and she perceives an overall improvement since the procedure. Plan - Vesicare 10 mg once daily. - Follow up in three months or sooner if symptoms worsen. 05/11/24--Lizet is here for urodynamics. CMG parameters detailed below. The patient has complaints of urinary incontinence. Interpretation: During the filling phase there was normal sensation, sensory urgency was observed. The patient felt that she was at capacity at 310 mL, she was unable to void with the catheters in place and voided 605 mL once catheters were removed. (the patient states she took her diuretic med this morning. Leakage was observed during valsalva. Findings consistent with ISD. EMG- Appropriate changes in the waveforms were noted through out the study. There was a decrease in the EMG activity during the voiding c/w normal function of the pelvic floor. I have discussed the risks of bulking injection to the proximal urethra to include but not limited to urine retention requiring a melo catheter, need to repeat the procedure, hematuria, and urgency. 03/22/24--48 year old female with complaints of urinary incontinence associated with coughing and urinary urgency. Discussed further evaluation with urodynamics, and renal/bladder US. 02/01/24--One Hysterectomy 2014, Previous evaluation in [place] with diagnosis of cystocele and stress incontinence Referred Dr. Hernandez for pelvic exam and decision of prolapse repair versus isolated stress incontinence procedure [facility] Medical History Upper extremity weakness Myositis Chest pain Diabetes Asthma High cholesterol IDDM (insulin dependent diabetes mellitus) Surgical History History of esophagogastroduodenoscopy (EGD) Hx of colonoscopy H/O: hysterectomy H/O tubal ligation Social History Household Members: Family Are you a primary hospice care consultant to a significant other at home: No Do you presently have visiting nurse or other home services: No Alcohol intake: never Patient Tobacco Use Status: Current someday Tobacco user Tobacco use type: Smokeless Tobacco Cigarettes Per Day: 1 Second Hand Smoke Exposure: No Review of Systems Const All systems reviewed & are unremarkable except as noted in HPI and below Reports no additional complaints Eyes Reports no additional complaints ENT Reports no additional complaints Card Reports no additional complaints Resp Reports no additional complaints GI Reports no additional complaints Reports as per HPI Musc Reports no additional complaints Skin/Breast Reports system reviewed and no additional complaints, except as documented Neuro Reports no additional complaints Psych Reports no additional complaints Endo Reports no additional complaints Alonso/Lymph Reports no additional complaints Aller/Immun Reports no additional complaints Telehealth Telehealth Telehealth Platform: Telephone Location of provider rendering services: practice address Location of patient: address on file Patient Identification confirmed using: Name, : Yes Telehealth method: voice only Patient verbally consented to treatment: Yes Patient verbally consented to billing insurance company: Yes Patient informed of any privacy concerns related to visit: Yes Minutes spent on Phone/Video with Pt.: 16 Assessment & Plan Assessment & Plan (1) Mixed stress and urge urinary incontinence: Code(s): N39.46 - Mixed incontinence Category: Medical Plan She is on a diuretic that she takes during the day which causes her to go more frequently. Later in the day the urinary symptoms of urgency are less and she is only getting up only 1 time at night. I will discontinue the VESIcare; we will monitor for bladder symptoms follow-up in 9 months Medications: Discontinued phenazopyridine (Pyridium) take with food Discontinued Reason: Patient Completed Course 200 mg PO BID 3 days 6 tabs 0RF urinary burning solifenacin (Vesicare) Discontinued Reason: Patient no longer taking 10 mg PO DAILY 30 tabs 4RF Patient Instructions: The patient had an opportunity to ask questions regarding treatment plan. The patient expressed understanding and agreement with the above treatment plan. The patient is aware they should contact our office by phone for worsening of their current condition or the appearance of new symptoms. Compliance is encouraged with any medications and followup testing that is ordered. It is a privilege to be allowed the opportunity to participate in the urologic care of your patient. If you have any questions or concerns regarding treatment for the above conditions please do not hesitate to contact me. The office telephone contact is [phone]. This note is constructed in part using voice recognition software. While every effort has been made to ensure accuracy washing and screening plant supervisor errors may have been included. Yours sincerely, Duane Elliott MD Coding Level of Care Code Tele Est Pt Level 3 (80742) Diagnoses Mixed stress and urge urinary incontinence N39.46
== END 2025-04-18 16:30 | disposition home or self-care (01) ==
LOC: HO.HUSH 16:11
PROVIDERS: PCP Internal Medicine; Visit Provider Urology
DX: N39.46 Mixed incontinence (principal)
CPT/HCPCS: 99213

== ENCOUNTER 2025-05-20 08:34 | Outpatient (REF) | payer MEDICAID, SELFPAY ==
[2025-05-20 11:57] LABS: Folate 11.3 ng/mL (> or = 4.0); Vitamin B12 361 pg/mL (200-900)
[2025-05-21 22:38] LABS: Transglutaminase Ab IgG <1.0 U/mL
[2025-05-25 12:24] LABS: Vitamin D 25-OH, D2 <4 ng/mL; Vitamin D 25-OH, D3 33 ng/mL; Vitamin D 25-OH, Total 33 ng/mL (30-100)
== END 2025-05-20 08:35 | disposition home or self-care (01) ==
LOC: HO.LAB 08:34
PROVIDERS: Absent Provider Student in an Organized Health Care Education/Training Program; PCP Internal Medicine; Visit Provider Nurse Practitioner Family
DX: K21.9 Gastro-esophageal reflux disease without esophagitis (principal); K59.01 Slow transit constipation; K76.0 Fatty (change of) liver, not elsewhere classified; E55.9 Vitamin D deficiency, unspecified; R19.7 Diarrhea, unspecified; R13.10 Dysphagia, unspecified; R14.0 Abdominal distension (gaseous); R10.13 Epigastric pain; Z79.899 Other long term (current) drug therapy; Z01.84 Encounter for antibody response examination
CPT/HCPCS: 36415; 82306; 82607; 82746; 84443; 86364; 99212

== ENCOUNTER 2025-05-20 08:34 | Outpatient (AMB) | payer MEDICAID, SELFPAY ==
--- NOTE | 2025-05-20 08:38 | MHC.OFFVIS ---
Vital Signs 05/20/25 08:43 Height 5 ft 6 in Weight 196 lb BMI 31.6 BP 120/68 Blood Pressure Location Rt brachial Position Sitting Pulse 102 H Pulse Source Pulse Oximeter Pulse Oximetry (%) 95 Oxygen Delivery Method Room Air Intake Visit Reasons: hepatic steatosis, liver hemangioma was SUZETTE PT Intake Note: Returning pt for mgmt of fatty liver + hepatic hemangioma. CC; C.O. constipation w/o evidence of rectal bleeding, bloating + distention. Pt has hx of fatty liver and GERD; reports that they recently had an US done per PCP. US was done through [facility]. Billboard Poster Helper Required: Yes Billboard Poster Helper Services: Billboard Poster Helper Present Billboard Poster Helper Name: HM (Provider only) Information Interpreted: clinical only Accompanied by: Self / Same As Patient Allergies dulaglutide (From Trulicity) Allergy (Verified 04/18/25 16:15) Unknown Sulfa (Sulfonamide Antibiotics) Allergy (Verified 04/18/25 16:15) Unknown HPI HPI hepatic steatosis, liver hemangioma was SUZETTE PT: Details: UPPER ENDOSCOPY AND COLONOSCOPY 04/27/2023 Findings: Larynx:normal Esophagus: GE junction at 44 cm, diaphragm hiatus at 44 cm, mild esophagitis, bx taken from GEJ and distal/proximal esophagus--balloon dilation done at LES and UEs to 20 mm, no tears seen, tertiary contractions noted Stomach: Patchy erythema. Biopsies were obtained. Grade 2 flap valve on retroflexed examination of the cardia. Duodenum: Normal bulb and descending duodenum, Intervention: Biopsies as noted above COLONOSCOPY Instrument: Olympus variable stiffness pediatric scope 190L Colonoscopy Monitoring: Vital signs and clinical assessment, continuous EKG monitoring, Pulse oximetry, Carbon Dioxide monitoring and blood pressure monitoring were done throughout the procedure. Colon withdrawal time was 14 minutes. Procedure: The patient was placed in the left lateral decubitis position and pre-procedure medications were administered. After a digital rectal examination of the ano-rectum, the video colonoscope was inserted into the rectum and advanced through the colon to the cecum/TI. The colonoscope was slowly withdrawn in a retrograde panoramic fashion and the colon mucosa was carefully examined including a retroflexed view of the rectum. Findings and interventions are described below. Procedure Difficulty:moderate due to looping and tortuous colon Findings: Terminal Ileum-normal Cecum:normal Ascending Colon: 10 mm sessile polyp removed with cold snare, not retrieved Transverse Colon -normal Descending Colon:normal Sigmoid Colon: moderate diverticulosis Rectum: Retroflexion with small internal hemorrhoids, grade I Anorectum - normal Colon preparation: Pacolet Bowel Preparation Scale Right colon; 1-2 Transverse colon: 2 Left colon; 2 (0 = Unprepared colon segment with mucosa not seen due to solid stool that cannot be cleared. 1 = Portion of mucosa of the colon segment seen, but other areas of the colon segment not well seen due to staining, residual stool and/or opaque liquid. 2 = Minor amount of residual staining, small fragments of stool and/or opaque liquid, but mucosa of colon segment seen well. 3 = Entire mucosa of colon segment seen well with no residual staining, small fragments of stool or opaque liquid) Impression and Post Procedure Diagnosis: Endoscopy Findings: gastritis esophageal dysmotility, gastritis Colonoscopy Findings: polyp internal hemorrhoids diverticular disease Plan: Await Pathology results Repeat Colonoscopy in 5 years due to polyp and fair right sided prep or earlier if clinically indicated High fiber diet leaflet avoid straining at stool, epsom salts and sitz bath, anusol supps or cream reflux precautions PATHOLOGY RESULTS Diagnosis A. Stomach, biopsy: Gastric antral and body mucosa with congestion and focal minimal chronic inactive inflammation; negative for H pylori, intestinal metaplasia and dysplasia. B. Gastroesophageal junction, biopsy: Squamous mucosa with hyperplasia and columnar mucosa with minimal chronic inactive inflammation; negative for intestinal metaplasia and dysplasia. C. Esophagus, distal, biopsy: Squamous mucosa with mild hyperplasia and spongiosis compatible with esophagitis; no columnar mucosa present. D. Esophagus, proximal, biopsy: Squamous mucosa with mild hyperplasia and spongiosis, and few focal intraepithelial eosinophils (up to 2 per high-power field), compatible with esophagitis; no evidence of eosinophilic esophagitis; no columnar mucosa present LAST OFFICE VISIT WITH Liliane MARIE 06/22/2023 A 47 y/o female f/u with bloating- continues to have bloating on and off- she cannot ID anything specific She takes insulin, does not like the injections- they cause her discomfort He begin pantoprazole for acid reflux with excellent response Appetite is good bowels are normal She was seen after EGD/ colonoscopy in April- Reviewed again-procedure reports- She has an appt-@ [facility] - Endocrinology-next month. She has no other complaints- TODAY'S VISIT: Has not been on pantoprazole for a few months, feels worse when laying down. Heartburn is very bothersome. Reports constipation - is on ozempic. BM once every few days. Denies melena, hematochezia, unintentional weight loss or ribbon like stools. Feels very bloated due to this. Bloating is also exacerbated by eating. Diet is not the best currently as she is inbetween housing and most of her foods are ?easy? as she only has a small mini fridge.? Today denies dysphagia, dyspepsia, odynophagia, early satiety, lower abdominal pain, belching, change in bowel habits, diarrhea, loose stools, excessive flatus, ribbon like stools, vomiting, unintentional weight loss. No known family history of colon cancer. Has no known adverse reactions to anesthesia. No history of JONATHAN.? [facility] Medical History Upper extremity weakness Myositis Chest pain Diabetes Asthma High cholesterol IDDM (insulin dependent diabetes mellitus) Surgical History History of esophagogastroduodenoscopy (EGD) Hx of colonoscopy H/O: hysterectomy H/O tubal ligation Social History Household Members: Family Are you a primary career discovery teacher to a significant other at home: No Do you presently have visiting nurse or other home services: No Alcohol intake: never Patient Tobacco Use Status: Current someday Tobacco user Tobacco use type: Smokeless Tobacco Cigarettes Per Day: 1 Second Hand Smoke Exposure: No Review of Systems Const Denies weight gain and Denies weight loss ENT Reports no additional complaints, Denies dysphagia and Denies odynophagia Card Reports no additional complaints Resp Reports no additional complaints GI Reports abdominal pain, Denies belching, Denies melena, Reports bloating, Denies change in bowel habits, Reports constipation, Denies dysphagia, Denies excessive flatus, Denies dyspepsia, Reports heartburn, Denies diarrhea, Denies loose stools, Denies nausea, Denies odynophagia and Denies vomiting Reports no additional complaints Musc Reports no additional complaints Neuro Reports no additional complaints Psych Reports no additional complaints Endo Reports no additional complaints Physical Exam Vital Signs: Last Vital Signs Pulse 102 H 05/20/25 08:43 BP 120/68 05/20/25 08:43 Pulse Ox 95 05/20/25 08:43 Oxygen Delivery Method Room Air 05/20/25 08:43 BMI result Body Mass Index 31.6 Const General: healthy appearing, no acute distress and well developed Nutritional Appearance: well nourished Orientation/consciousness: patient oriented x3 Resp Effort & Inspection: normal respiratory effort, able to speak in complete sentences, no tracheal deviation and symmetric chest movement Auscultation: clear to auscultation bilaterally Cardio Rate: regular rate GI Inspection: Yes normal to inspection and No distended Palpation (GI): Soft to palpation, not firm, nontender and No hepatosplenomegaly present Auscultation: normal bowel sounds General: Yes no CVA tenderness Back/Spine/Pelvis Back: no CVA tenderness Skin General skin exam: elasticity normal, turgor normal and dry skin Neuro General: patient oriented x3 Psych Appearance: grossly normal Mental Status: mental status grossly normal Assessment & Plan Assessment & Plan (1) Dysphagia: Code(s): R13.10 - Dysphagia, unspecified Category: Medical Qualifiers: Dysphagia type: unspecified Qualified Code(s): R13.10 - Dysphagia, unspecified (2) Chronic GERD: Code(s): K21.9 - Gastro-esophageal reflux disease without esophagitis Category: Medical (3) Bloating: Code(s): R14.0 - Abdominal distension (gaseous) Category: Medical (4) Constipation: Code(s): K59.00 - Constipation, unspecified Qualifiers: Constipation type: slow transit constipation Qualified Code(s): K59.01 - Slow transit constipation (5) Postprandial epigastric pain: Code(s): R10.13 - Epigastric pain Plan Will order liver elastography to assess fibrosis, upper GI barium swallow for GERD, as well as blood work today. Will order pantoprazole 40mg daily and dulcolax daily. Patient will try to follow a FODMAP diet to help with symptoms. Encourage patient to avoid dietary triggers and late night snacking. Staying upright for minimum 3 hours after meals discussed with patient. Follow up 3 months or sooner if needed.? Patient is agreeable to this plan and verbalizes understanding of instructions. She was given the opportunity to ask questions and all questions answered. Thank you for allowing me to participate in her care Orders: Orders FL upper GI w air w Ba Swallow Today K21.9 - Gastro-esophageal reflux disease without esophagitis TSH reflex Free T4 Today K59.00 - Constipation, unspecified Vitamin B12 and Folate Today R19.7 - Diarrhea, unspecified Transglutaminase Ab IgG Today R10.9 - Unspecified abdominal pain Vitamin D 25-OH (D2 and D3) Today E55.9 - Vitamin D deficiency, unspecified US abdomen burnett w elastography Today K76.0 - Fatty (change of) liver, not elsewhere classified Medications: New bisacodyl (Dulcolax (bisacodyl)) 10 mg (2 x 5 mg) PO BEDTIME 180 tabs 4RF Refilled pantoprazole 40 mg PO QAM 30 tabs 3RF Coding Level of Care Code Est Pt Level 4 (37956) Complex EM visit Add On G2211 Diagnoses Dysphagia, unspecified type R13.10 Dysphagia type: unspecified Chronic GERD K21.9 Bloating R14.0 Slow transit constipation K59.01 Constipation type: slow transit constipation Postprandial epigastric pain R10.13 Time Spent (min) 40 Comment 25 minutes spent with patient and additional 15 minutes spent reviewing her records
[2025-05-20 08:43] VITALS: BP 120/68; PULSE 102; O2SAT 95; BMI 31.6
--- OUTSIDE RECORDS SUMMARY | 2025-05-20 09:00 | XMS_ITS | Encounter Summary ---
Author Organization [employer] Address [address] [place] [address] [address] [place] [address] Care Team Providers Care Field Agronomist Name Role Phone Cheryl Fitzpatrick MD Primary Care Provider + Nick Castellanos Unavailable Unavailable Reason for Visit * Reason Onset Date Comments cx scheduled appt 02/08/2025 Encounter Details Date Type Department Care Team (Late st Contact Info) Description 02/08/2025 Telephone [facility]ULT [facility] [address] [place], [place] [phone] Hema Hill DDS [address] [place], [place] [phone] cx scheduled appt Social History Tobacco Use [...] fro denture adjustment due to pain. However, assistant front end manager C called that they were in the [...] pin worsens and persists. Provided phone number [phone] documented in this encounter Plan of Treatment Upcoming Encounters Date Type Department Care Team (Late st Contact Info) Description 06/27/2025 9:00 AM EST Office Visit [facility] OPTOM[facility]RY [address] [place] [address] Salena Garcia, OD [address] [place] [address] documented as of this encounter Goals Goal [...] documented as of this encounter Care Teams Field Agronomist Relationship Specialty Start Date End Date Cheryl Fitzpatrick MD [address] [place] [address] PCP - General Internal Medicine 09/10/22 Nick Castellanos FNP [address] [place] [address] Nurse Practitioner Family Medicine 07/04/23 Apolonia Mars point of care technician Tea Leaf ReaderBlueprinting Machine Operator 11/16/23 documented as of this encounter
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
--- OUTSIDE RECORDS SUMMARY | 2025-05-20 09:00 | XMS_ITS | Encounter Summary ---
Author Organization [employer] Address [address] [place] [address] [address] [place] [address] Care Team Providers Care Cycle Director Name Role Phone Cheryl Fitzpatrick MD Primary Care Provider + Nick Castellanos Unavailable Unavailable Reason for Visit * Reason Comments Med Refill Encounter Details Date Type Department Care Team (Late st Contact Info) Description 09/13/2024 Refill [facility] MED[facility] [address] [place], [place] [phone] Cheryl Fitzpatrick MD [address] [place], [place] [phone] Anxiety; Migraine with aura and without status [...] 06/27/2025 9:00 AM EST Office Visit [facility] OPTOM[facility]RY [address] [place] [address] Salena Garcia, ELLIS [address] [place] [address] documented as of this encounter Goals Goal [...] documented as of this encounter Care Teams Cycle Director Relationship Specialty Start Date End Date Cheryl Fitzpatrick MD [address] [place] [address] PCP - General Internal Medicine 09/10/22 Nick Castellanos FNP [address] [place] [address] Nurse Practitioner Family Medicine 07/04/23 Apolonia Mars personal care worker Electronic Security TechnicianSetter Automatic Spinning Lathe 11/16/23 documented as of this encounter
--- OUTSIDE RECORDS SUMMARY | 2025-05-20 09:00 | XMS_ITS | Encounter Summary ---
Author Organization [employer] Address [address] [place] [address] [address]t [place] [address] Care Team Providers Care Resourcing Advisor Name Role Phone Cheryl Fitzpatrick MD Primary Care Provider + Nick Castellanos Unavailable Unavailable Reason for Visit * Reason Onset Date Comments PT1 10/27/2023 Encounter Details Date Type Department Care Team (Late st Contact Info) Description 10/27/2023 Telephone [facility] MED[facility] [address] [place], [place] [phone] Cheryl Fitzpatrick MD [address] [place], [place] [phone] PT1 Social History Tobacco Use Types Packs/Day [...] with others, in a hotel, in a group home, living outside on the street, on [...] - 11/09/2023 1:24 PM EDT PT-1 Request [id number] Pending for [address] * Telephone Encounter - Maria De Jesus Epstein - 11/09/2023 1:20 PM EDT PT-1 Request [id number] Pending for [facility] * Telephone Encounter - Maria De Jesus Epstein - 11/09/2023 1:17 PM EDT PT-1 Request [id number] Pending For [facility] * Telephone Encounter - Shireen Johns - 10/27/2023 9:28 AM EST PT1 renewals Date: 11/09/2023 Time: 1:30 Visits: n/a Address: [address] [facility] [address] Facility: [facility] Wheel Chair: No Patcher Bowling Ball Needed: No Date: n/a Time: n/a Visits: n/a Address: [address] [facility] [address] Facility: [facility] Multiple Specialties Wheel Chair: no Patcher Bowling Ball Needed: no Date: n/a Time: n/a Visits: n/a Address: [address] [facility] Facility: Assistant Production Manager Wheel Chair: no Patcher Bowling Ball Needed: no documented in this encounter Plan of Treatment Upcoming Encounters Date Type Department Care Team (Late st Contact Info) Description 06/27/2025 9:00 AM EST Office Visit [facility] OPT[facility] [address] [place] [address] Salena Garcia OD [address] [place] [address] documented as of this encounter Goals Goal [...] documented as of this encounter Care Teams Resourcing Advisor Relationship Specialty Start Date End Date Cheryl Fitzpatrick MD [address] [place] [address] PCP - General Internal Medicine 1/20/23 Nick Castellanos FNP [address] [place] [address] Nurse Practitioner Family Medicine 07/04/23 [address] Shay Sample Coordinator 11/11/23 02/10/24 Apolonia Mars care management coordinator Sample CoordinatorFaculty Head 11/16/23 documented as of this encounter
--- OUTSIDE RECORDS SUMMARY | 2025-05-20 09:00 | XMS_ITS | Encounter Summary ---
Author Organization [employer] Address [address] [place] [address] [address]t [place] [address] Care Team Providers Care China And Silverware Salesperson Name Role Phone Cheryl Fitzpatrick MD Primary Care Provider + Nick Castellanos Unavailable Unavailable Encounter Details Date Type Department Care Team (Late st Contact Info) Description 09/11/2024 Telephone [facility] [address] [place], [place] [phone] Cheryl Fitzpatrick MD [address] [place], [place] [phone] Social History Tobacco Use Types Packs/Day Years [...] Description 06/27/2025 9:00 AM EST Office Visit [facility] [address] [place] [address] Salena Garcia, ELLIS [address] [place] [address] documented as of this encounter Goals Goal [...] documented as of this encounter Care Teams China And Silverware Salesperson Relationship Specialty Start Date End Date Cheryl Fitzpatrick MD [address] [place] [address] PCP - General Internal Medicine 09/10/22 Nick Castellanos FNP [address] [place] [address] Nurse Practitioner Family Medicine 07/04/23 Apolonia Mars resident care supervisor Biology Faculty MemberBroacher 11/16/23 documented as of this encounter
--- OUTSIDE RECORDS SUMMARY | 2025-05-20 09:00 | XMS_ITS | Encounter Summary ---
Author Organization [employer] Address [address] [place] [address] 7t [place] [address] Care Team Providers Care Global Account Executive Name Role Phone Cheryl Fitzpatrick MD Primary Care Provider + Nick Castellanos Unavailable Unavailable Reason for Visit * Reason Onset Date Comments PT-1 10/22/2024 Encounter Details Date Type Department Care Team (Late st Contact Info) Description 10/22/2024 Telephone [facility] MEDICINE [address] [place], [place] [phone] Cheryl Fitzpatrick MD [address] [place], [place] [phone] PT-1 (/) Social History Tobacco Use Types [...] Y/N: Yes Provider name or facility name: [facility] Escort needed: Do you have a wheelchair: Y/N: No If yes- Manual or electric: Visits: (5 x Mothly) Patient calling requesting PT1 Home Address verified: Y/N: Yes Provider name or facility name: [facility] [place], [address] [place] [address] Escort needed: Y/N: No Do you have a wheelchair: Y/N: No If yes- Manual or electric: Visits: (5 x Monthly) Patient calling requesting PT1 Home Address verified: Yes Provider name or facility name: [facility], [address] [facility] [address], [place] [address] Escort needed: Y/N: No Do you have a wheelchair: Y/N: No If yes- Manual or electric: Visits: (2 x Monthly) documented in this encounter Plan of Treatment Upcoming Encounters Date Type Department Care Team (Late st Contact Info) Description 06/27/2025 9:00 AM EST Office Visit [facility] OPTOMETRY [address] [place] [address] Salena Garcia, OD [address] [place] [address] documented as of this encounter Goals Goal [...] documented as of this encounter Care Teams Global Account Executive Relationship Specialty Start Date End Date Cheryl Fitzpatrick MD [address] [place] [address] PCP - General Internal Medicine 09/10/22 Nick Castellanos FNP [address] [place], [place] Nurse Practitioner Family Medicine 07/04/23 Apolonia Mars plant care worker Superintendent Electric PowerAmpoule Filler And Sealer 11/16/23 documented as of this encounter
--- OUTSIDE RECORDS SUMMARY | 2025-05-20 09:00 | XMS_ITS | Encounter Summary ---
Author Organization [employer] Address [address] [place] [address] 7t [place] [address] Care Team Providers Care Airplane Pilot Name Role Phone Cheryl Fitzpatrick MD Primary Care Provider + Nick Castellanos Unavailable Unavailable Reason for Visit * Reason Comments Med Refill Encounter Details Date Type Department Care Team (Late st Contact Info) Description 11/10/2023 Refill [facility] MEDICINE 230 [place], [place] [phone] Nick Castellanos FNP Type 2 diabetes mellitus with hyperglycemia, with long-term current use of insulin ([facility]) Social History Tobacco Use Types Packs/Day Years [...] [facility] OPTOMETRY [address] [place] [address] Salena Garcia, ELLIS [address] [place] [address] documented as of this encounter Goals Goal [...] hyperglycemia, with long-term current use of insulin (HCC) documented in this encounter Additional Health Concerns Assessment Noted Time PHQ-9 Depression Total Score: 11 024 9:34 AM EST documented as of this encounter Care Teams Airplane Pilot Relationship Specialty Start Date End Date Cheryl Fitzpatrick MD [address] [place] [address] PCP - General Internal Medicine 09/10/22 Nick Castellanos FNP [address] [place] [address] Nurse Practitioner Family Medicine 07/04/23 [address] Marine Structural Welder 11/11/23 02/10/24 Apolonia Mars manager care Marine Structural WelderPediatric Radiologist 11/16/23 documented as of this encounter
--- OUTSIDE RECORDS SUMMARY | 2025-05-20 09:00 | XMS_ITS | Encounter Summary ---
Author Organization [employer] Address [address] [place] [address] 7t [place] [address] Care Team Providers Care Remedial Masseur Name Role Phone Cheryl Fitzpatrick MD Primary Care Provider + Nick Castellanos Unavailable Unavailable Reason for Visit * Reason Comments Med Refill Encounter Details Date Type Department Care Team (Late st Contact Info) Description 05/14/2025 Refill [facility] MEDICINE 230 [place], [place] [phone] Cheryl Fitzpatrick MD 230 [place], [place] [phone] Primary hypertension Social History Tobacco Use Types Packs/Day Years [...] EST Office Visit [facility] OPTOMETRY [address] [place] [address] Salena Garcia, ELLIS [address] [place] [address] documented as of this encounter Goals Goal Patient Goal Type Associated Problems Recent Progress Patient-Stated? Author Blood Pressure < 140/90 Blood Pressure 110/70(2024 9:50 AM EDT) No Kenzie Tran, PharmD Hemoglobin A1c < 7 Result Component 8.2( 10:41 AM EDT) No Kenzie Tran, PharmD documented as of this encounter Visit Diagnoses Diagnosis Primary hypertension Unspecified essential hypertension documented in this encounter Additional Health Concerns Assessment Noted Time PHQ-9 Depression Total Score: 12 02/21/ 025 10:40 AM EDT documented as of this encounter Care Teams Remedial Masseur Relationship Specialty Start Date End Date Cheryl Fitzpatrick MD [address] [place] [address] PCP - General Internal Medicine 09/10/22 Nick Castellanos FNP [address] [place] [address] Nurse Practitioner Family Medicine 07/04/23 Apolonia Mars respite care provider Wall TaperAircraft Engine Technician 11/16/23 documented as of this encounter
--- OUTSIDE RECORDS SUMMARY | 2025-05-20 09:00 | XMS_ITS | Encounter Summary ---
Author Organization [employer] Address [address] [place] [address] 7t [place] [address] Care Team Providers Care Asphalt Coater Name Role Phone Cheryl Fitzpatrick MD Primary Care Provider + Nick Castellanos Unavailable Unavailable Reason for Visit * Reason Onset Date Comments PT1 11/19/2024 Encounter Details Date Type Department Care Team (Late st Contact Info) Description 11/19/2024 Telephone [facility] MEDICINE 230 [place], [place] [phone] Cheryl Fitzpatrick MD 230 [place], [place] [phone] PT1 Social History Tobacco Use Types Packs/Day [...] Yes Provider name or facility name: 230 [place] [address]. [facility] Escort needed: Y/N: No Do you have a wheelchair: Y/N: No Cane If yes- Manual or electric: N/A Visits: (5x monthly) 2 of 4 Patient calling requesting PT1 Home Address verified: Y/N: Yes Provider name or facility name: [address] [place] [address] - [facility] Escort needed: Y/N: No Do you have a wheelchair: Y/N: No Cane If yes- Manual or electric: N/A Visits: (2x monthly) 3 of 4 Patient calling requesting PT1 Home Address verified: Y/N: Yes Provider name or facility name: [address] [place] [address] - [facility] Escort needed: Y/N: No Do you have a wheelchair: Y/N: No Cane If yes- Manual or electric: N/A Visits: (2x monthly) 4 of 4 Patient calling requesting PT1 Home Address verified: Y/N: Yes Provider name or facility name: [address] [place] [address] [place] [address] [facility] Escort needed: Y/N: No Do you have a wheelchair: Y/N: No Cane If yes- Manual or electric: N/A Visits: (7x monthly) documented in this encounter Plan of Treatment Upcoming Encounters Date Type Department Care Team (Late st Contact Info) Description 06/27/2025 9:00 AM EST Office Visit [facility] OPTOMETRY [address] [place] [address] Salena Garcia OD [address] [place] [address] documented as of this encounter Goals Goal [...] as of this encounter Care Teams Asphalt Coater Relationship Specialty Start Date End Date Cheryl Fitzpatrick MD 230 [place] [address] PCP - General Internal Medicine 09/10/22 Nick Castellanos FNP [address] [facility] [place] [address] Nurse Practitioner Family Medicine 07/04/23 Apolonia Mars child care Mail DistributorItalian Tutor 11/16/23 documented as of this encounter
--- OUTSIDE RECORDS SUMMARY | 2025-05-20 09:01 | XMS_ITS | Encounter Summary ---
Author Organization [employer] Address [address] [place] [address] 7t [place] [address] Care Team Providers Care Media Clerk Name Role Phone Cheryl Fitzpatrick MD Primary Care Provider + Nick Castellanos Unavailable Unavailable Reason for Visit * Reason Onset Date Comments Created in error 03/20/2024 Encounter Details Date Type Department Care Team (Late st Contact Info) Description 03/20/2024 Telephone [facility] MEDICINE 230 [place], [place] [phone] Cheryl Fitzpatrick MD [address] [place], [place] [phone] Created in error Social History Tobacco Use [...] with others, in a hotel, in a care home, living outside on the street, on [...] Description 06/27/2025 9:00 AM EST Office Visit [facility] OPTOMETRY [address] [place] [address] Salena Garcia, ELLIS [address] [place] [address] documented as of this encounter Goals Goal [...] as of this encounter Care Teams Media Clerk Relationship Specialty Start Date End Date Cheryl Fitzpatrick MD 230 [place] [address] PCP - General Internal Medicine 09/10/22 Nick Castellanos FNP [address] [place] [address] Nurse Practitioner Family Medicine 07/04/23 Apolonia Mars healthcare market consultant Creosoting EngineerProject Engineering Manager 11/16/23 documented as of this encounter
--- OUTSIDE RECORDS SUMMARY | 2025-05-20 09:01 | XMS_ITS | Encounter Summary ---
Author Organization [employer] Address [address] [place] [address] 7t [place] [address] Care Team Providers Care Healthcare Technician Name Role Phone Cheryl Fitzpatrick MD Primary Care Provider + Nick Castellanos Unavailable Unavailable Reason for Visit * Reason Onset Date Comments PT-1 04/16/2024 Encounter Details Date Type Department Care Team (Late st Contact Info) Description 04/16/2024 Telephone [facility] MEDICINE 230 [place], [place] [phone] Cheryl Fitzpatrick MD [address] [place], [place] [phone] PT-1 Social History Tobacco Use Types Packs/Day [...] Y/N: Yes Provider name or facility name: [facility] Therapy - [place] [address] Facility Address: [address] [place] [address] [facility]: Y/N: No Do you have a wheelchair: Y/N: No If yes- Manual or electric: no Visits 6 documented in this encounter Plan of Treatment Upcoming Encounters Date Type Department Care Team (Late st Contact Info) Description 06/27/2025 9:00 AM EST Office Visit [facility] OPTOMETRY [address] [place] [address] [phone] Salena Garcia, OD [address] [place] [address] documented as of this encounter Goals Goal [...] documented as of this encounter Care Teams Healthcare Technician Relationship Specialty Start Date End Date Cheryl Fitzpatrick MD [address] [place] [address] PCP - General Internal Medicine 09/10/22 Nick Castellanos FNP [address] [place] [address] Nurse Practitioner Family Medicine 07/04/23 Apolonia Mars animal care attendant Cook TacoSensor Technician 11/16/23 documented as of this encounter
--- OUTSIDE RECORDS SUMMARY | 2025-05-20 09:01 | XMS_ITS | Encounter Summary ---
Author Organization [employer] Address [address] [place] [address] 7t [place] [address] Care Team Providers Care Welfare Eligibility Interviewer Name Role Phone Cheryl Fitzpatrick MD Primary Care Provider + Nick Castellanos Unavailable Unavailable Reason for Visit * Reason Onset Date Comments Paperwork/Forms 10/19/2023 Encounter Details Date Type Department Care Team (Late st Contact Info) Description 10/19/2023 Telephone [facility] MEDICINE 230 [place], [place] [phone] Cheryl Fitzpatrick MD 230 [place], [place] [phone] Paperwork/Forms Social History Tobacco Use Types Packs/Day [...] to welfare before they close her case. Stand Up Forklift Operator advised pt she has an appointment this Tuesday (10/19) with provider. Please contact pt at [phone] (Guyanese) documented in this encounter Plan of Treatment Upcoming Encounters Date Type Department Care Team ([facility] st Contact Info) Description 06/27/2025 9:00 AM EST Office Visit [facility] OPTOMETRY [address] [place] [address] Salena Garcia, OD [address] [place] [address] documented as of this encounter Goals Goal [...] documented as of this encounter Care Teams Welfare Eligibility Interviewer Relationship Specialty Start Date End Date Cheryl Fitzpatrick MD [address] [place] [address] PCP - General Internal Medicine 09/10/22 Nick Castellanos FNP [address] [place] [address] Nurse Practitioner Family Medicine 07/04/23 [address] Temporary Help Agency Referral Clerk 11/11/23 02/10/24 Apolonia Mars nurse behavioral health care Temporary Help Agency Referral ClerkDrapery Counselor 11/16/23 documented as of this encounter
--- OUTSIDE RECORDS SUMMARY | 2025-05-20 09:01 | XMS_ITS | Encounter Summary ---
Author Organization [employer] Address [address] [place] [address] 7t [place] [address] Care Team Providers Care Telehealth Coordinator Name Role Phone Cheryl Fitzpatrick MD Primary Care Provider + Edu Leung PharmD Unavailable Nick Castellanos PHOTO TECHNOLOGIST Unavailable Unavailable Reason for Visit * Reason Comments Med Refill Encounter Details Date Type Department Care Team (Late st Contact Info) Description 12/18/2022 Refill [facility] 230 [place] [address] Marybel Webster MD [address] [place] [address] Social History Tobacco Use Types Packs/Day Years [...] Description 06/27/2025 9:00 AM EST Office Visit [facility] OPTOMETRY [address] [place] [address] Salena Garcia, ELLIS [address] [place] [address] documented as of this encounter Visit Diagnoses Not on filedocumented in this encounter Additional Health Concerns Assessment Noted Time PHQ-9 Depression Total Score: 9 11/16/19 10:11 AM EDT documented as of this encounter Care Teams Telehealth Coordinator Relationship Specialty Start Date End Date Cheryl Fitzpatrick MD [address] [place] [address] PCP - General Internal Medicine 09/10/22 Edu Leung, Merari [address] [place] [address] Pharmacist Internal Medicine 06/14/23 06/28/23 Nick Castellanos FNP [address] [place] [address] Nurse Practitioner Family Medicine 07/04/23 [address] Animal Husbandry Manager 11/11/23 02/10/24 Apolonia Mars eye care professional Animal Husbandry ManagerCatering Service Manager 11/16/23 documented as of this encounter
--- OUTSIDE RECORDS SUMMARY | 2025-05-20 09:01 | XMS_ITS | Encounter Summary ---
Author Organization [employer] Address [address] [place] [address] 7t [place] [address] Care Team Providers Care Employment Coordinator Name Role Phone Cheryl Fitzpatrick MD Primary Care Provider + Edu Leung PharmD Unavailable [phone] Nick Castellanos RECREATION SUPERVISOR Unavailable Unavailable Reason for Visit * Reason Comments Med Refill Encounter Details Date Type Department Care Team (Late st Contact Info) Description 10/05/2022 Refill [facility] [address] [place] [phone] Name, MD Pradeep [address] [place] [address] Type 2 diabetes mellitus with hyperglycemia, with long-term current use of insulin ([facility]); Anxiety Social History Tobacco Use [...] 9:00 AM EST Office Visit [facility] OPTOMETRY [address] [place] [address] Salena Garcia, OD [address] [place] [address] documented as of this encounter Visit Diagnoses Diagnosis Type 2 diabetes mellitus with hyperglycemia, with long-term current use of insulin (HCC) Anxiety Anxiety state, unspecified documented in this encounter Additional Health Concerns Assessment Noted Time PHQ-9 Depression Total Score: 19 023 9:39 AM EST documented as of this encounter Care Teams Employment Coordinator Relationship Specialty Start Date End Date Cheryl Fitzpatrick MD 230 [place] [address] PCP - General Internal Medicine 09/10/22 Edu Leung PharmD [address] [place] [address] Pharmacist Internal Medicine 06/14/23 06/28/23 Nick Castellanos FNP [address] [place] [address] Nurse Practitioner Family Medicine 07/04/23 [address] Net Solutions Architect 11/11/23 02/10/24 Apolonia Mars hemodialysis patient care specialist Net Solutions ArchitectAppliance Parts Counter Clerk 11/16/23 documented as of this encounter
--- OUTSIDE RECORDS SUMMARY | 2025-05-20 09:01 | XMS_ITS | Encounter Summary ---
Author Organization [employer] Address [address] [place] [address] 7t [place] [address] Care Team Providers Care Immigration Lawyer Name Role Phone Cheryl Fitzpatrick MD Primary Care Provider + Nick Castellanos Unavailable Unavailable Reason for Visit * Reason Comments Med Refill Encounter Details Date Type Department Care Team (Late st Contact Info) Description 09/29/[address] [facility] MEDICINE 230 [place], [place] [phone] Cheryl Fitzpatrick MD 230 [place], [place] [phone] Anxiety; Migraine with aura and without status [...] AM EST Office Visit [facility] OPTOMETRY [address] [place] [address] Salena Garcia, ELLIS [address] [place] [address] documented as of this encounter Goals Goal [...] documented as of this encounter Care Teams Immigration Lawyer Relationship Specialty Start Date End Date Cheryl Fitzpatrick MD 230 [place] [address] PCP - General Internal Medicine 09/10/22 Nick Castellanos FNP [address] [place] [address] Nurse Practitioner Family Medicine 07/04/23 Court Sh[address] Academic Affairs Coordinator 11/11/23 02/10/24 Apolonia Mars companion caregiver Academic Affairs CoordinatorIntegrated Pest Management Technician 11/16/23 documented as of this encounter
--- OUTSIDE RECORDS SUMMARY | 2025-05-20 09:01 | XMS_ITS | Encounter Summary ---
Author Organization [employer] Address [address] [place] [address] 7t [place] [address] Care Team Providers Care House Admin Name Role Phone Cheryl Fitzpatrick MD Primary Care Provider + Edu Leung PharmD Unavailable [phone] Nick Castellanos DIRECTOR OF COMMUNITY SERVICES Unavailable Unavailable Encounter Details Date Type Department Care Team (Late st Contact Info) Description 11/12/2022 Abstract [facility] MEDICINE 230 [place], [place] [phone] Cheryl Fitzpatrick MD 230 [place], [place] [phone] Social History Tobacco Use Types Packs/Day Years [...] 06/27/2025 9:00 AM EST Office Visit [facility] OPTOMETRY [address] [place] [address] Salena Garcia OD [address] [place] [address] documented as of this encounter Visit Diagnoses Not on filedocumented in this encounter Additional Health Concerns Assessment Noted Time PHQ-9 Depression Total Score: 19 023 9:39 AM EST documented as of this encounter Care Teams House Admin Relationship Specialty Start Date End Date Cheryl Fitzpatrick MD [address] [place] [address] PCP - General Internal Medicine 09/10/22 Edu Leung, HudsonD [address] [place] [address] Pharmacist Internal Medicine 06/14/23 06/28/23 Nick Castellanos FNP [address] [place] [address] Nurse Practitioner Family Medicine 07/04/23 [address] Milk House Worker 11/11/23 02/10/24 Apolonia Mars resident caregiver Milk House WorkerHasher Operator 11/16/23 documented as of this encounter
--- OUTSIDE RECORDS SUMMARY | 2025-05-20 09:01 | XMS_ITS | Encounter Summary ---
Author Organization [employer] Address [address] [place] [address] 7t [place] [address] Care Team Providers Care Gynecology Teacher Name Role Phone Cheryl Fitzpatrick MD Primary Care Provider + Edu Leung PharmD Unavailable Nick Castellanos VINEYARD SUPERVISOR Unavailable Unavailable Encounter Details Date Type Department Care Team (Late st Contact Info) Description 10/05/2022 Orders Only [facility] MEDICINE 230 [place], [place] [phone] Cheryl Fitzpatrick MD 230 [place], [place] [phone] Fibromyalgia (Primary Dx); Migraine with aura and [...] Description 06/27/2025 9:00 AM EST Office Visit [facility] OPTOMETRY [address] [place] [address] Salena Garcia, ELLIS [address] [place] [address] documented as of this encounter Visit Diagnoses Diagnosis Fibromyalgia- Primary Unspecified myalgia and myositis Migraine with aura and without status migrainosus, not intractable documented in this encounter Additional Health Concerns Assessment Noted Time PHQ-9 Depression Total Score: 19 023 9:39 AM EST documented as of this encounter Care Teams Gynecology Teacher Relationship Specialty Start Date End Date Cheryl Fitzpatrick MD [address] [place] [address] PCP - General Internal Medicine 09/10/22 Edu Leung PharmD [address] [place] [address] Pharmacist Internal Medicine 06/14/23 06/28/23 Nick Castellanos FNP [address] [place] [address] Nurse Practitioner Family Medicine 07/04/23 [address] Test Facility Engineer 11/11/23 02/10/24 Apolonia Mars transitional care liaison Test Facility EngineerHelp Desk Intern 11/16/23 documented as of this encounter
--- OUTSIDE RECORDS SUMMARY | 2025-05-20 09:01 | XMS_ITS | Encounter Summary ---
Author Organization [employer] Address [address] [place] [address] 7t [place] [address] Care Team Providers Care Tape Stringer Name Role Phone Cheryl Fitzpatrick MD Primary Care Provider + Edu Leung PharmD Unavailable Nick Castellanos FENDER FINISHER Unavailable Unavailable Reason for Visit * Reason Comments Med Refill Encounter Details Date Type Department Care Team (Late st Contact Info) Description 12/09/2022 Refill [facility] MEDICINE 230 [place], [place] [phone] Cheryl Fitzpatrick MD 230 [place], [place] [phone] Type 2 diabetes mellitus with hyperglycemia, with long-term current use of insulin ([facility]); Anxiety Social History [...] 9:00 AM EST Office Visit [facility] OPTOMETRY [address] [place] [address] Salena Garcia, OD [address] [place] [address] documented as of this encounter Visit Diagnoses Diagnosis Type 2 diabetes mellitus with hyperglycemia, with long-term current use of insulin (HCC) Anxiety Anxiety state, unspecified documented in this encounter Additional Health Concerns Assessment Noted Time PHQ-9 Depression Total Score: 9 11/16/19 10:11 AM EDT documented as of this encounter Care Teams Tape Stringer Relationship Specialty Start Date End Date Cheryl Fitzpatrick MD [address] [place] [address] PCP - General Internal Medicine 09/10/22 Edu Leung PharmD [address] [place] [address] Pharmacist Internal Medicine 06/14/23 06/28/23 Nick Castellanos FNP [address] [place] [address] Nurse Practitioner Family Medicine 07/04/23 [address] Geoscience Specialist 11/11/23 02/10/24 Apolonia Mars vehicle care specialist Geoscience SpecialistGlobe Cleaner 11/16/23 documented as of this encounter
--- OUTSIDE RECORDS SUMMARY | 2025-05-20 09:01 | XMS_ITS | Encounter Summary ---
Author Organization [employer] Address [address] [place] [address] 7t [place] [address] Care Team Providers Care Firebreak Cutter Name Role Phone Cheryl Fitzpatrick MD Primary Care Provider + Edu Leung PharmD Unavailable Nick Castellanos SCHOOL BUS ATTENDANT Unavailable Unavailable Reason for Visit * Reason Onset Date Comments call back 10/05/2022 Encounter Details Date Type Department Care Team (Late st Contact Info) Description 10/05/2022 Telephone [facility] [address] [place], [place] [phone] Cheryl Fitzpatrick MD [address] [place], [place] [phone] call back Social History Tobacco Use Types [...] Description 06/27/2025 9:00 AM EST Office Visit [facility] [address] [place] [address] Salena Garcia, OD [address] [place] [address] documented as of this encounter Visit Diagnoses Not on filedocumented in this encounter Additional Health Concerns Assessment Noted Time PHQ-9 Depression Total Score: 19 023 9:39 AM EST documented as of this encounter Care Teams Firebreak Cutter Relationship Specialty Start Date End Date Cheryl Fitzpatrick MD [address] [place] [address] PCP - General Internal Medicine 09/10/22 Edu Leung PharmD [address] [place] [address] Pharmacist Internal Medicine 06/14/23 06/28/23 Nick Castellanos FNP [address] [place] [address] Nurse Practitioner Family Medicine 07/04/23 Court Shay Dog Trainer 11/11/23 02/10/24 Apolonia Mars medicare sales representative Dog TrainerControl Clerk Auditing 11/16/23 documented as of this encounter
--- OUTSIDE RECORDS SUMMARY | 2025-05-20 09:01 | XMS_ITS | Encounter Summary ---
Author Organization [employer] Address [address] [place] [address] 7t [place] [address] Care Team Providers Care Metal Sprayer Name Role Phone Cheryl Fitzpatrick MD Primary Care Provider + Nick Castellanos Unavailable Unavailable Reason for Visit * Reason Onset Date Comments PT1 03/15/2024 Encounter Details Date Type Department Care Team (Late st Contact Info) Description 03/15/2024 Telephone [facility] [address] [place], [place] [phone] Cheryl Fitzpatrick MD [address] [place], [place] [phone] PT1 Social History Tobacco Use Types Packs/Day [...] states is homeless and is currently at [address] [place] [id number] Provider name or facility name: [facility] physical [facility] Facility Address: [address] [place] [id number] Escort needed: Y/N: No Do you have a wheelchair: Y/N: No If yes- Manual or electric: no Visits: 5-6 visit a month documented in this encounter Plan of Treatment Upcoming Encounters Date Type Department Care Team ([facility] st Contact Info) Description 06/27/2025 9:00 AM EST Office Visit [facility] OPT[facility] [address] [place] [address], [place] [address] Salena Garcia, OD [address] [place] [address] documented as of this encounter Goals Goal [...] documented as of this encounter Care Teams Metal Sprayer Relationship Specialty Start Date End Date Cheryl Fitzpatrick MD [address] [place] [address] PCP - General Internal Medicine 09/10/22 Nick Castellanos FNP [address] [place] [address] Nurse Practitioner Family Medicine 07/04/23 Apolonia Mars career services manager Cartography TeacherBusiness And Marketing Teacher 11/16/23 documented as of this encounter
--- OUTSIDE RECORDS SUMMARY | 2025-05-20 09:01 | XMS_ITS | Encounter Summary ---
Author Organization [employer] Address [address] [place] [address] 7t [place] [address] Care Team Providers Care Special Certificate Dictator Name Role Phone Cheryl Fitzpatrick MD Primary Care Provider + Nick Castellanos Unavailable Unavailable Reason for Visit * Reason Comments Med Refill Encounter Details Date Type Department Care Team (Late st Contact Info) Description 09/29/2023 Refill [facility] [address] [place] [address] Nick Castellanos FNP Type 2 diabetes mellitus with hyperglycemia, with long-term current use of insulin ([facility]) Social History Tobacco Use Types Packs/Day [...] Description 06/27/2025 9:00 AM EST Office Visit [facility] OPT[facility] [address] [place] [address] Salena Garcia OD [address] [place] [address] documented as of this encounter Goals Goal [...] documented as of this encounter Care Teams Special Certificate Dictator Relationship Specialty Start Date End Date Cheryl Fitzpatrick MD 230 [place] [address] PCP - General Internal Medicine 09/10/22 Nick Castellanos FNP 230 [place] [address] Nurse Practitioner Family Medicine 07/04/23 Court Shay Accounts Payable Technician 11/11/23 02/10/24 Apolonia Mars point of care technician Accounts Payable TechnicianCornice Maker 11/16/23 documented as of this encounter
--- OUTSIDE RECORDS SUMMARY | 2025-05-20 09:01 | XMS_ITS | Encounter Summary ---
Author Organization [employer] Address [address] [place] [address] 7t [place] [address] Care Team Providers Care Surgical Scheduler Name Role Phone Cheryl Fitzpatrick MD Primary Care Provider + Nick Castellanos Unavailable Unavailable Reason for Visit * Reason Comments Med Refill Encounter Details Date Type Department Care Team (Late st Contact Info) Description 09/29/2023 Refill [facility] [address] [place], [place] [phone] Cheryl Fitzpatrick MD [address] [place], [place] [phone] Anxiety; Migraine with aura and without status [...] Description 06/27/2025 9:00 AM EST Office Visit [facility] [address] [place] [address] Salena Garcia, ELLIS [address] [place] [address] documented as of this encounter Goals Goal [...] documented as of this encounter Care Teams Surgical Scheduler Relationship Specialty Start Date End Date Cheryl Fitzpatrick MD [address] [place] [address] PCP - General Internal Medicine 09/10/22 Nick Castellanos FNP [address] [place] [address] Nurse Practitioner Family Medicine 07/04/23 [address] Shay Supervisor Stripping 11/11/23 02/10/24 Apolonia Mars career development engineer Supervisor StrippingFamily Worker 11/16/23 documented as of this encounter
--- OUTSIDE RECORDS SUMMARY | 2025-05-20 09:01 | XMS_ITS | Encounter Summary ---
Author Organization [employer] Address [address] [place] [address] 7t [place] [address] Care Team Providers Care Correction Officer Supervisor Name Role Phone Cheryl Fitzpatrick MD Primary Care Provider + Edu Leung PharmD Unavailable [phone] Nick Castellanos CATERING ASSISTANT Unavailable Unavailable Reason for Visit * Reason Onset Date Comments cancelling appt with OS 04/19/2023 Encounter Details Date Type Department Care Team (Late st Contact Info) Description 04/19/2023 Telephone [facility] ADULT DENTAL [address] [place], [place] [phone] Hema Hill DDS [address] [place], [place] [phone] cancelling appt with OS Social History Tobacco [...] to be cancelled. Reached out to oral chenille machine operator but could not reach her DR documented in this encounter Plan of Treatment Upcoming Encounters Date Type Department Care Team (Late st Contact Info) Description 06/27/2025 9:00 AM EST Office Visit [facility] OPT[facility] [address] [place] [address] Salena Garcia, ELLIS [address] [place] [address] documented as of this encounter Goals Goal [...] documented as of this encounter Care Teams Correction Officer Supervisor Relationship Specialty Start Date End Date Cheryl Fitzpatrick MD [address] [place] [address] PCP - General Internal Medicine 09/10/22 Edu Leung, Merari [address] [place] [address] Pharmacist Internal Medicine 06/14/23 06/28/23 Nick Castellanos FNP [address] [place] [address] Nurse Practitioner Family Medicine 07/04/23 [address] Drafting Detailer 11/11/23 02/10/24 Apolonia Mars tire care manager Drafting DetailerServicer Travel Trailers 11/16/23 documented as of this encounter
--- OUTSIDE RECORDS SUMMARY | 2025-05-20 09:01 | XMS_ITS | Encounter Summary ---
Author Organization [employer] Address [address] [place] [address] 7[address] [place] [address] Care Team Providers Care Clerk Typist Name Role Phone Cheryl Fitzpatrick MD Primary Care Provider + Edu Leung PharmD Unavailable Nick Castellanos CUFF FOLDER Unavailable Unavailable Encounter Details Date Type Department Care Team (Late st Contact Info) Description 05/18/2023 Abstract [facility] AD[facility] [address] [place], [place] [phone] Hema Hill DDS [address] [place], [place] [phone] Social History Tobacco Use Types Packs/Day Years [...] Description 06/27/2025 9:00 AM EST Office Visit [facility] [address] [place] [address] Salena Garcia, OD [address] [place] [address] documented as of this encounter Goals Goal [...] documented as of this encounter Care Teams Clerk Typist Relationship Specialty Start Date End Date Cheryl Fitzpatrick MD 230 [place] [address] PCP - General Internal Medicine 09/10/22 Edu Leung PharmD [address] [place] [address] Pharmacist Internal Medicine 06/14/23 06/28/23 Nick Castellanos FNP [address] [place] [address] Nurse Practitioner Family Medicine 07/04/23 [address] Casting Machine Operator Automatic 11/11/23 02/10/24 Apolonia Mars urgent care physician assistant Casting Machine Operator AutomaticFoil Wrapper 11/16/23 documented as of this encounter
--- OUTSIDE RECORDS SUMMARY | 2025-05-20 09:01 | XMS_ITS | Clinical Summary ---
Author Organization [employer] Address [address] [facility] [address] [place] [address] Care Team Providers Care Export Packer Name Role Phone Ingrid Wolfe MD Primary [...] hyperglycemia, with long-term current use of insulin (HCC),Anxiety Test daily before all meals/snacks and once [...] hyperglycemia, with long-term current use of insulin ([facility]),Anxiety Take 1 tablet (300 mg) by mouth in the morning. Do not crush, chew, or split. 90 tablet 024 Active clonazePAM (KlonoPIN) 2 MG tabletIndicatio ns:Type 2 diabetes mellitus with hyperglycemia, with long-term current use of insulin ([facility]) Take 1 tablet (2 mg) by mouth every 8 (eight) hours. 84 tablet 5 024 Active QUEtiapine (SEROquel) 300 MG tabletIndicatio ns:Type 2 diabetes mellitus with hyperglycemia, with long-term current use of insulin ([facility]) Take 0.5 tablets (150 mg) by mouth in the morning AND 2 tablets (600 mg) at bedtime. 225 tablet 024 Active traZODone (Desyrel) 100 MG tabletIndicatio ns:Type 2 diabetes mellitus with hyperglycemia, with long-term current use of insulin ([facility]),Anxiety TAKE 2 TABLET BY MOUTH QHS 180 tablet 024 Active acetaminophen (Tylenol) 500 MG tablet [...] hyperglycemia, with long-term current use of insulin ([facility]) INJECT 72 UNITS SUBCUTANEOUSLY EVERY EVENING 30 mL 7 024 Active insulin lispro (HumaLOG) 100 UNIT/ML injectionIndica tions:Type 2 diabetes mellitus with hyperglycemia, with long-term current use of insulin ([facility]),Anxiety INJECT 10 UNITS SUBCUTANEOUSLY BEFORE MEALS 15 mL 024 Active TRUEplus Lancets 33G miscIndications :Type 2 diabetes mellitus with hyperglycemia, with long-term current use of insulin ([facility]),Anxiety TEST BLOOD SUGAR BEFORE MEALS AND SNACKS AND BEFORE BEDTIME 100 each 11 024 Active Pentips Generic Pen [place] 32G X 4 MM miscIndications :Type 2 diabetes mellitus with hyperglycemia, with long-term current use of insulin ([facility]),Anxiety USE FOUR TIMES DAILY 100 each 025 Active rosuvastatin (Crestor) 20 MG tablet Take 1 tablet (20 mg) by mouth at bedtime. 90 tablet 3 025 2025 Active Mometasone Furoate (Asmanex HFA) 200 MCG/ACT [...] hyperglycemia, with long-term current use of insulin ([facility]) TAKE 1 TABLET BY MOUTH EVERY MORNING 30 tablet 3 025 Active topiramate 50 MG tabletIndicatio ns:Migraine with aura and without status migrainosus, not intractable TAKE 1 TABLET BY MOUTH AT BEDTIME 90 tablet 025 Active ARIPiprazole (Abilify) 30 MG tablet Take 30 mg by mouth in the morning. Active busPIRone (Buspar) 5 MG tablet Take 1 tablet by mouth every 6 (six) hours during the day. 025 Active Continuous Glucose Sensor (Dexcom G7 Sensor) [facility] Active cyclobenzaprine (Flexeril) 10 MG tablet Take [...] with long-term current use of insulin (HCC) USE DIRECTED TO TEST BLOOD SUGAR NEEDED FOR HYPOGLYCEMIA 50 strip 5 025 Active losartan-hydroC HLOROthiazide (Hyzaar) 50-12.5 MG tabletIndicatio ns:Primary hypertension TAKE 1 TABLET BY MOUTH EVERY MORNING 90 tablet 1 025 Active losartan-hydroC HLOROthiazide (Hyzaar) 50-12.5 MG tabletIndicatio ns:Primary hypertension TAKE 1 TABLET BY MOUTH EVERY MORNING 90 tablet 1 025 2024 Discontinued Active Problems Problem Noted [...] life style modifications, diet and referral to coding support specialist. Recommended to decrease soda and sugary [...] life style modifications, diet and referral to coding support specialist. Recommended to decrease soda and sugary [...] (10/21/2023 11:33 AM EST): Seen recently by production supervisor off shift, fu every 6 m A1c is improving but not at goal, FU with rattlesnake farmer (I gave pt phone number to schedule appointment, I will refer to machine adjuster leader case trim to support her to keep her appointment) No change in medication and fu with rattlesnake farmer Papilloma 06/24/2023 Retained dental root 05/18/2023 Major depressive disorder, r ecurrent episode, severe with mood-congruent psychotic features (CMS/HCC) 04/08/2023 Assessment & Plan (02/21/2025 11:17 AM [...] but she will be referred to new [facility] pyschiatric prescriber. She gives verbal [...] psychiatric symptoms. Any issues or concerns, contact [facility]. All her questions were answered [...] letters and forms, she should F/U with [facility] Medical Records. It is clear she [...] her room will be given to the [id number], and pt anticipates becoming homeless. Has been [...] her room will be given to the [id number], and pt anticipates becoming homeless. Has been [...] it is difficult for her to access [facility] every week fu with neurology next month Housing instability, currently housed 02/17/2023 Assessment & Plan (05/06/2023 1:51 PM EDT): Has to leave her daughter's home in 30d Will refer to [facility] to help her in the process of finding a room or group home I [facility], at least temporarily while [...] daughter's home in 30d Will refer to [facility] to help her in the process of finding a room or group home I suggested to place her cat with the [employer] shelters for cats, at least temporarily while [...] and arguments with her daughters I provided group home information and she will follow up with [...] clinician will complete referral for psychopharmacology at [facility]. Clinician educated patient on coping skills including [...] and supports PLAN: 1. Follow up with [facility]: Not recommended for follow-up 2. Patient goal is to established psychiatry service 3. Behavioral Recommendations a. Patient will continue to comply with medication b. Patient will utilze new coping skills c. Patient will reach out to a [facility], if needed Assessment & Plan (01/06/2023 12:01 [...] last pill. Pt to be seen by CLINICAL NURSE REVIEWER nurse. Pt agreed to be referred to pill boxes. Assessment & Plan (12/21/2022 3:44 PM EDT): Patient has not received fu appt from counselor within the past month, she cant travel to [place], would like it all within the same area ([place] or [facility]) I will refer to our service and continue same meds. Assessment & Plan (11/15/2022 11:55 AM EDT): continue Wellbutrin and Seroquel for now continue to fu closely with psychotherapist she will scrap picker prescription for clonazepam today and discussed with her about requesting refill through [facility] at least 3 days prior to last [...] yet. Advised to continue to follow-up with rattlesnake farmer in 2 weeks, she definitely would benefit [...] meals, avoid long periods of fasting. FU [facility] endocrinology next mo Assessment & Plan (10/09/2024 3:58 PM EST): Uncontrolled, she needs appointment with rattlesnake farmer. Start Mounjaro 2.5 mg and FU in 4 weeks to assess tolerance, I told her she needs to r/s appointment with rattlesnake farmer. Continue Tresiba 72 units + Humalog TID ac meals + Jardiance. I discuss with her the importance of having small infraction meals, avoid long periods of fasting. Assessment & Plan (07/17/2024 1:23 PM EST): Uncontrolled. Pt to FU with endocrinology in 3 days. Assessment & Plan (04/25/2024 3:30 PM EDT): A1c is improving, not at goal. Continue to follow up closely with rattlesnake farmer team. No change in medications. Assessment & [...] and FU closely with DM educator an rattlesnake farmer clinic Counseled re more frequent low calorie/carb meals. Encouraged physical activity as tolerated. FU in 3 months Coulsened to have Covid booster LULÚ Assessment & Plan (06/10/2023 11:36 AM EDT): Uncontrolled Counseled to use Humalog prior to each meal, she has sofia with endo scheduled on 06/22/23 at 1:30 at [facility] endo, information given to pt and [...] finding adequate food, counseled to go to [employer] to use HIP program. Needs to rs endocrinology appt, info given Assessment & Plan (03/24/2023 1:42 PM EDT): A1C is uncontrolled, getting worse unclear if related to seroquel and poor adherence to diet increase tresiba to 55 units per day and continue humalog start jardiance 25 mg and fu in 4-6 weeks new referral to rattlesnake farmer as local rattlesnake farmer is not accepting new patients Counseled re [...] before breakfast and dinner and refer to rattlesnake farmer Assessment & Plan (12/21/2022 10:23 AM EDT): [...] starts seeing psychiatrist Has an appointment with tube room cashier fu in 2 months Assessment & Plan [...] smoking, use nicotine gum prn Pituitary adenoma ([facility]/HCC) 10/17/2023 12/07/2024 Assessment & Plan (12/07/2024 2:45 [...] episode of recurren t major depressive disorder (CMS/HCC) 01/20/2023 04/08/2023 Assessment & Plan (02/17/2023 11:56 [...] clinician will complete referral for psychopharmacology at [facility]. Clinician educated patient on coping skills including grounding, deep breathing, mindfulness and behavorial activation. A copy of skills was provided to patient. At this time Lizet Sagastume meets criteria for Visit Diagnoses: Problem List Items Addressed This Visit Other Generalized anxiety disorder Moderate episode of recurrent major depressive disorder ([facility]) Patient ready to address current needs Yes Strengths include utilizing coping skills and supports PLAN: 1. Follow up with [facility]: Not recommended for follow-up 2. Patient goal is to established psychiatry service 3. Behavioral Recommendations a. Patient will continue to comply with medication b. Patient will utilze new coping skills c. Patient will reach out to a [facility], if needed Left foot pain 10/01/2022 02/21/2025 [...] take Wellbutrin and Seroquel daily Refer to [facility] Pt has crisis number and is able to contract for safety. Encounters * This document contains information received from the source organization and may not represent a complete record from that organization. Date Type Department Care Team Description 05/14/2025 Refill [facility] [address] [place] [address] Ingrid Wolfe MD Primary hypertension 04/18/2025 Refill [facility] [address] [place] [address] Alejandra Dyer MD Type 2 diabetes mellitus with hyperglycemia, with long-term current use of insulin ([facility]) 04/16/2025 Orders Only GENERIC EXTERNAL DATA DEPARTMENT Provider, Generic External Data 04/12/2025 Travel 04/08/2025 Travel 04/05/2025 Telephone [facility] [address] [facility] [place] [address] Ingrid Wolfe MD Accommodation Letter 04/01/2025 11:00 AM EDT Office Visit [facility] [address] [place] [address] Cayla Tompkins MD Mid back pain, chronic (Primary Dx); Chronic midline low back pain without sciatica; Arthritis of left hip; Chronic pain syndrome 04/01/2025 Travel 03/28/2025 Telephone [facility] [address] [place] [address] Ingrid Wolfe MD 03/27/2025 Telephone [facility] [address] [facility], [place] [phone] Ingrid Wolfe MD Housing Form (I called [...] faxed to housing.) 03/25/2025 Travel 03/21/2025 Refill [facility] [facility] [place] [address] Ingrid Wolfe MD Migraine with aura and without status migrainosus, not intractable 03/20/2025 10:00 AM EDT Office Visit [facility] ADULT DENTAL [address] [place], [place] [phone] Hema Hill DDS Ill-fitting dentures (Primary Dx) 03/15/2025 Refill [facility] [address] [place] [address] Ingrid Wolfe MD Anxiety; Migraine with aura and without status migrainosus, not intractable; Type 2 diabetes mellitus with hyperglycemia, with long-term current use of insulin ([facility]) 03/11/2025 Telephone [facility] [address] [place] [phone] Ingrid Wolfe MD Medication Question 03/11/2025 Telephone [facility] [address] [place] [phone] Ingrid Wolfe MD Nurse Triage 03/06/2025 Orders Only [address] [address] Ingrid Wolfe MD 02/21/2025 11:30 AM EDT Office Visit [facility] [address] [place] [phone] Hema Hill DDS Ill-fitting dentures (Primary Dx); Normal oral exam 02/21/2025 10:30 AM EDT Office Visit [address] [address] Ingrid Wolfe MD Type 2 diabetes mellitus with hyperglycemia, with long-term current use of insulin (CMS/HCC) (Primary Dx); Hepatic steatosis; Liver hemangioma; Flexural eczema; Arthritis of both shoulders; Major depressive disorder, recurrent episode, severe with mood-congruent psychotic features (CMS/HCC); Encounter for immunization 02/21/2025 Travel 02/20/[address] [address] Ingrid Wolfe MD Chart Prep from Last 3 Months Immunizations Immunization Administration [...] Description 06/27/2025 9:00 AM EST Office Visit [facility] OPTOMETRY [address] [place], [place] [phone] Salena Garcia, OD [address] [place] [address] Health Maintenance Due Date Last Done Comments CT Colonography 1975 Dental Prophylaxis 1975 FIT DNA/Cologuard 1975 FIT 1975 FOBT 1975 Sigmoidoscopy 1975 Alcohol/Substance Use Screening 1987 Family Planning (PISQ) 1990 Hepatitis A Vaccines (1 of 2 - Risk 2-dose series) 1994 Dental X-Ray: [facility]ings 09/18/2023 09/17/2022 Eye Exam 12/14/2023 12/13/2022, 11/21, 12/13/2022, Additional history exists COVID-19 Vaccine ( - season) 2025 10/01/2022 Influenza Vaccine (#1) 2025 10/09/2024, 2022 [...] AM EDT) No Piers-Gambl e, Kenzie, PharmD Procedures Procedure Name Priority Date/Time Associated [...] with long-term current use of insulin (CMS/HCC) LIPID PANEL WITH REFLEX TO DIRECT LDL [...] PM EDT Narrative 04/16/2025 2:43 PM EDT [address] [address] XRay Report Signed Patient: Lizet Cash MR# : [id number] : 1975 Acct:[id number] Age/Sex: 49 / F ADM Date: 04/16/25 Loc: HO.ED Attending Dr: Ordering Physician: Ernestina Mackey Date of Service: 04/16/25 Procedure(s): XR Shoulder Mirza min 2V Accession Number(s): [id number] cc: Ingrid Wolfe MD; Ernestina Mackey Exam: [...] 04/16/25 1440 DD/ 1334 TD/TT: 04/16/25 1433 Division Engineer: Procedure Note Donotuseinterpreter, Image - 04/16/2025 [address] [place] [address] XRay Report Signed Patient: Augusto Cash# : [id number] : 1975Acct:[id number] Age/Sex: 49 / FADM Date: 04/16/25 Loc: HO.ED Attending Dr: Ordering Physician: Ernestina Mackey Date of Service: 04/16/25 Procedure(s): XR Shoulder Mirza min 2V Accession Number(s): [id number] cc: Ingrid Wolfe MD; Ernestina Mackey Exam: [...] 04/16/25 1440 DD/ 1334 TD/TT: 04/16/25 1433 Division Engineer: [facility] External Provider IMG XR PROCEDURES Final Result * (ABNORMAL) Urinalysis, Complete, with Reflex to Culture (04/16/2025 11:54 AM EDT) Color Urine Yellow [facility] Appearance Urine Clear [facility] PH 5.5 5.0 - 9.0 [facility] Glucose Urine UA >=1000(A) Negative mg/dL [facility] Urine Blood Negative Negative [facility] Specific [place] - Urine >=1.030(H) 1.005 - 1.025 [facility] Urine Protein Negative Neg-Trace mg/dL [facility] Urine Ketones Trace Negative mg/dL [facility] Nitrite Urine Negative Negative [facility] Leukocyte Esterase Urine Negative Negative [facility] RBC Urine 0-2 0 - 2 /HPF [facility] Urine WBC 6-10(A) 0 - 5 /HPF [facility] Urine Squamous Epithelial Cell 0-2 0 - 2 /HPF [facility] Urine Bacteria None Seen None Seen [facility] Hyaline Casts, Urine 3-5 0 - 2 /LPF [facility] 04/16/2025 11:5 4 AM EDT 04/16/2025 12:13 PM EDT Narrative [facility] - 04/16/2025 12:23 PM EDT [id number], Clean Catch us Generic External Data Provider LAB URINE ORDERAB LES Final Result Performing Organization Address [facility]/ZIP Co de Phone Number [facility] [address] [place] [phone] * High Sensitivity Troponin I (04/16/2025 11:46 AM EDT) TROPONIN I HIGH SENSITIVITY <2.7 <3.5 - 17.0 ng/L [facility] Comment:The Aguilar high sens itivity Troponin-I results should beused in conjunction with other diagnostic information suchas ECG, clinical observations and information, and patientsymptoms to aid in the diagnosis of [place]. 04/16/2025 11:4 6 AM EDT 04/16/2025 11:50 AM EDT us Generic External Data Provider LAB BLOOD ORDERAB LES Final Result Performing Organization Address [facility]/ZIP Co de Phone Number [facility] [address] [place] [phone] * CBC auto differential (04/16/2025 11:46 AM EDT) White Blood Count 6.2 4.8 - 10.8 X10*3/uL [facility] Red Blood Count 4.71 4.20 - 5.50 X10*6/uL [facility] Hemoglobin 13.8 12.0 - 16.0 g/dl [facility] Hematocrit 40.9 37.0 - 47.0 % [facility] Mean Corpuscular Volume 86.8 80.0 - 98.0 fL [facility] Mean Corpuscular Hemoglobin 29.3 27.0 - 33.0 pg [facility] Mean Corpuscular HGB Conc 33.7 31.0 - 35.0 g/dl [facility] Red Cell Distribution Width 14.4 11.0 - 16.0 % [facility] Platelet Count 288 160 - 400 X10*3/uL [facility] Mean Platelet Volume 10.2 9.4 - 12.3 fL [facility] Neutrophils Percent Auto 55.0 45 - 73 % [facility] Imm Gran Pct Auto 0.2 0.0 - 0.4 % [facility] Lymphocytes Percent Auto 34.7 20 - 40 % [facility] Monocytes Percent Auto 6.5 2 - 11 % [facility] Eosinophils Percent Auto 2.8 0 - 4 % [facility] Basophils Percent Auto 0.8 0 - 2 % [facility] NRBC Pct Auto 0.0 0.0 - 0.2 /100WBC [facility] Neutrophils Absolute Auto 3.4 2.0 - 8.3 x10*3/uL [facility] Imm Gran Abs Auto 0.01 0.00 - 0.03 X10*3/uL [facility] Lymphocytes Absolute Auto 2.1 1.2 - 4.9 X10*3/uL [facility] Monocytes Absolute Auto 0.4 0.1 - 1.2 X10*3/uL [facility] Eosinophils Absolute Auto 0.2 0.0 - 0.4 X10*3/uL [facility] Basophils Absolute Auto 0.1 0.0 - 0.2 X10*3/uL [facility] NRBC Abs Auto 0.000 0.0 - 0.012 X10*3/uL [facility] 04/16/2025 11:4 6 AM EDT 04/16/2025 11:50 AM EDT Generic External Data Provider LAB BLOOD ORDERAB LES Final Result Performing Organization Address City/[facility]/ZIP Co de Phone Number [facility] [address] [place] [phone] * hCG, Total, Quantitative (04/16/2025 11:46 AM EDT) HCG Quantitative <2 mIU/mL [facility] Comment:Weeks post LMP Appro ximate hCG(Last Menstrual Period) Range (mIU/ml)3 - 4 weeks 9 - 1304 - 5 weeks 75 - 2,6005 - 6 weeks 850 - 20,8006 - 7 weeks 4000 - 100,2007 - 12 weeks 11,500 - 289,93469 - 16 weeks 18,300 - 137,70111 - 29 weeks (2nd trimester) 1,400 - 53,76864 - 41 weeks (3rd trimester) 940 - [...] ORDERAB LES Final Result Performing Organization Address City/[facility]/ZIP Co de Phone Number [facility] [address] [place] [phone] * Magnesium (04/16/2025 11:46 AM EDT) Magnesium 2.1 1.6 - 2.6 mg/dL [facility] 04/16/2025 11:4 6 AM EDT 04/16/2025 11:50 AM EDT Generic External Data Provider LAB BLOOD ORDERAB LES Final Result Performing Organization Address [facility] Co de Phone Number [facility] [address] [place] [phone] * (ABNORMAL) Creatine Kinase, Total (04/16/2025 11:46 AM EDT) Creatine Kinase Total 393(H) 26 - 140 U/L [facility] 04/16/2025 11:4 6 AM EDT 04/16/2025 11:50 AM EDT [facility] External Data Provider LAB BLOOD ORDERAB LES Final Result Performing Organization Address [facility] de Phone Number [facility] [address] [place] [phone] * (ABNORMAL) Comprehensive Metabolic Panel (04/16/2025 11:46 AM EDT) Pathologist [facility] Sodium 138 135 - 145 mmol/L [facility] Potassium 3.7 3.3 - 5.1 mmol/L [facility] Chloride 108 96 - 108 mmol/L [facility] Carbon Dioxide 22 22 - 29 mmol/L [facility] Anion Gap 12 12 - 20 [facility] Urea Nitrogen (BUN) 13 9 - 16 mg/dL [facility] Creatinine, Serum 0.55 0.5 - 1.4 mg/dL [facility] Creatinine Clr Calc Pharmacy 138.6 [facility] Comment:Provided height and weight: 167.64 cm,88.451 kg.eGFR (calculated from the MDRD study equation) and eCrCl(calculated from the Cockcroft-Gault equation) are based ondifferent parameters and may not yield comparable results.If eCrCl result is absurd, please check patient'sheight/weight. Estimated Glomerular Filt Rate >60 [facility] Comment:Chronic Kidney Disea se: Estimated GFR < 60 mL/min/[id number] Kidney Disease: Estimated GFR < 15 mL/min/1.73m2 Glucose 152(H) 60 - 115 mg/dL [facility] Calcium 9.2 8.4 - 10.2 mg/dL [facility] Bilirubin, Total 0.2 0.0 - 1.0 mg/dL [facility] Aspartate Amino Transferase 33(H) 5 - 31 U/L [facility] Alanine Aminotransferase 51(H) 0 - 31 U/L [facility] Total Protein 7.2 6.5 - 8.0 g/dL [facility] Albumin Level 4.6 3.5 - 5.0 g/dL [facility] Alkaline Phosphatase 84 39 - 117 U/L [facility] 04/16/2025 11:4 6 AM EDT 04/16/2025 11:50 AM EDT us Generic External Data Provider LAB BLOOD ORDERAB LES Final Result [facility] [address] [place] [phone] * Influenza A B2 ID NOW (Last Guide) (04/16/2025 10:48 AM EDT) IDNOW SERIAL# [id number] [facility] Influenza A Negative Negative [facility] Influenza B2 Negative Negative [facility] Influenza A B2 Note See Note [facility] Comment:The Aguilar ID NOW In [...] GENERAL ORDERABLES Final Result Performing Organization Address [facility] Co de Phone Number [facility] [address] [place] [phone] * Strep A Nucleic Acid (04/16/2025 10:48 AM EDT) IDNOW SERIAL# [id number] [facility] Strep A Nucleic Acid Negative Negative [facility] Comment:All test results mus t [...] GENERAL ORDERABLES Final Result Performing Organization Address [facility]UST de Phone Number [facility] [address] [place] [phone] * COVID-19 ID NOW (AGUILAR) (04/16/2025 10:48 AM EDT) IDNOW SERIAL# [id number] [facility] COVID-19 TEST Negative Negative [facility] COVID-19 NOTE See Note [facility] Comment: Results are [...] infection with other viruses.Testing facilities within the [facility] and itsterritories are required to report all [...] use by authorized laboratories.Testing performed on the Last Guide ID NOW utilizing [facility]. 04/16/2025 10:4 8 AM EDT 04/16/2025 10:53 AM EDT Generic External Data Provider LAB MOLECULAR ERIC GNOSTICS ORDERABLES Final Result Performing Organization Address [facility]/ZIP Co de Phone Number [facility] [address] [place] [phone] * Culture, Urine, Routine (04/16/2025 12:00 AM EDT) Urine Urine specimen obtained by clean catch procedure / Unknown 04/16/2025 04/16/2025 Comment:UACC Narrative [facility] - 04/17/2025 11:59 AM EDT Urine Culture Report Result Urine Culture 10,000 to 50,000 cfu/ml Urine Culture Mixed bacterial kerri characteristic of Urine Culture urogenital contamination. Specimen Source: Urine clean catch Generic External Data Provider LAB MICROBIOLOGY - GENERAL ORDERABLES Final Result Performing Organization Address City/[facility]/ZIP Co de Phone Number [facility] [address] [place] [address] [phone] * BI Mammogram Diagnostic Tomosynthesis Bilateral (03/06/2025 12:00 PM EDT) Anatomical Region Laterality Modality Breast Bilateral Mammography 03/06/2025 12:0 0 PM EDT Narrative 03/06/2025 1:55 PM EDT [facility] [address] [place], [place] [address] Mammography Report Signed Patient: Lizet Cash MR# : [id number] : 1975 Acct:[id number] Age/Sex: 49 / F ADM Date: 03/06/25 Loc: HO.MAMMO Attending Dr: Ingrid Wolfe MD Ordering Physician: Ingrid Wolfe MD Results: 3.12MProbably Benign Finding - 12 month F/U Suggested Date of Service: 03/06/25 Follow Up: 12 month diagnos tic follow up Procedure(s): MM tomosynthesis diagnostic BI Accession Number(s): [id number] cc: Ingrid Wolfe MD EXAMINATION: MM DIAGNOSTIC [...] 03/06/25 1352 DD/ 1200 TD/TT: 03/06/25 1250 Division Engineer: Procedure Note Donotuseinterpreter, Image - 03/06/2025 [facility] [address] [place], [place] [address] Mammography Report Signed Patient: Augusto Cash# : [id number] : 1975Acct:[id number] Age/Sex: 49 / FADM Date: 03/06/25 Loc: HO.MAMMO Attending Dr: Ingrid Wolfe MD Ordering Physician: Ingrid Wolfe MD Results: 3.12MProbably Benign Finding - 12 month F/U Suggested Date of Service: 03/06/25Follow Up: 12 month diagnos tic follow up Procedure(s): MM tomosynthesis diagnostic BI Accession Number(s): [id number] cc: Ingrid Wolfe MD EXAMINATION: MM DIAGNOSTIC [...] Winifred Perez DO 03/06/2025 01:52 PM EDT RP Dictated By: Winifred Perez DO Signed By: <Electronically signed by Winifred Perez DO in OV> 03/06/25 1352 DD/ 1200 TD/TT: 03/06/25 1250 Division Engineer: Ingrid Wolfe MD IMG BI PROCEDURES Final [...] Media Lot # [id number] Lot# Expiration Date , Blood Capillary blood specimen / Unknown 02/21/2025 10:38 AM EDT Ingrid Wolfe MD POINT OF CARE TEST ENTER /EDIT ORDERABLES Final Result * (ABNORMAL) Lipid Panel with Reflex to Direct LDL (11/29/2024 8:21 AM EDT) Triglycerides 178(H) <150 mg/dL [facility] Comment:Desirable Triglyceri de: less than 150 mg/dLBorderline High Triglyceride 150-199 mg/dLHigh Triglyceride: 200-499 mg/dLVery High Triglyceride: greater than or equal to 5OO mg/dL Cholesterol 144 <200 mg/dL [facility] Comment:Desirable Cholestero l: less than 200 mg/dLBorderline High Cholesterol: 200-239 mg/dLHigh Cholesterol: greater than 239 mg/dL LDL Cholesterol Calculated 72 <100 mg/dL [facility] Comment:Desirable LDL: less than 100 mg/dLNear Optimal/Above Optimal LDL: 110- 129 mg/dLBorderline High LDL: 130-159 mg/dLHigh LDL: 160-189 mg/dLVery High LDL: greater than or equal to 190 mg/dL HDL Cholesterol 37(L) >40 mg/dL [facility] Comment:Desirable HDL: great er than 40 mg/dL Note: This HDL assay may give artificially low results in patients with liver disease. Blood 11/29/2024 8:21 AM EDT 11/29/2024 11:37 AM EDT us Ingrid Wolfe MD LAB BLOOD ORDERABLES Fin al Result Performing Organization Address [facility]/RUST de Phone Number [facility] [address] [place] [phone] * Hepatitis Panel, General (10/04/2024 8:16 AM EST) Hepatitis A IgM Nonreactive Nonreactive [facility] Comment:IgM antibodies to GUILLORY V not detected; does not exclude earlyacute or recovered HAV infection. ~Hepatitis B Surface Antibody REACTIVE Nonreactive [facility] Comment:REACTIVE: > 11.99 mI U/mL Hepatitis B Core Antibody Nonreactive Nonreactive [facility] Hepatitis C Antibody Nonreactive Nonreactive [facility] Comment:Antibodies to HCV no t detected; does not exclude early acuteHCV infection. Hepatitis B Surface Ag Negative Negative [facility] Blood 10/04/2024 8:16 AM EST 10/04/2024 11:15 AM EST Ingrid Wolfe MD LAB BLOOD ORDERABLES Fin al Result Performing Organization Address [facility] [place]/[facility] Co de Phone Number [facility] [address] [place] [phone] * HIV-1/2 Antigen and Antibodies, Fourth Generation, with Reflexes (10/04/2024 8:16 AM EST) HIV AB/AG Nonreactive Nonreactive [facility] Comment:HIV-1 p24 Ag and/or HIV-1/HIV-2 Ab not detected.A test result that is nonreactive does not exclude thepossibility of exposure to or infection with HIV-1 and/orHIV-2. Nonreactive results in this assay for individualswith prior exposure to HIV-1 and/or HIV-2 may be due toantigen and antibody levels that are below the limit ofdetection of this assay.The Armor[employer] HIV Ag/Ab Combo assay result andsupplemental assay results should be interpreted inconjunction with the patient's clinical presentation,history and other laboratory results. If the results areinconsistent with clinical evidence, additional testing issuggested to confirm the result. Blood Venous blood specimen / Unknown 10/04/2024 8:16 AM EST 10/04/2024 11:15 AM EST us Ingrid Wolfe MD LAB BLOOD ORDERABLES Fin al Result Performing Organization Address City/[facility] [place]/ZIP Co de Phone Number [facility] [address] [place] [address] [phone] * Albumin, Random Urine W/Creatinine (08/31/2024 2:09 PM EST) Creatinine, Urine 31.14 mg/dL [facility] Microalbumin Urine <5.0 mg/L [facility] Microalbum Creatinine Ratio Ur TNP <30 ug/mg cr [facility] Comment:Unable to calculate albumin/creatinine ratio due to lowmicroalbumin or creatinine result. Urine (Urine, Random) 08/31/2024 2:09 PM EST 08/31/2024 4:00 PM EST Ingrid Wolfe MD LAB URINE ORDERABLES Fin al Result Performing Organization Address City/[facility]/ZIP Co de Phone Number [facility] [address] [place] [phone] * Pap Smear (12/14/2023 11:23 AM EDT) Swab Cervix uteri structure / Unknown 12/14/2023 11:23 AM EDT 12/14/2023 2:20 PM EDT [facility] - 01/02/2024 11:54 AM EDT ----- ------- Name: Alejo TovarLizet abraham Age/Sex: 48/F : 1975 Unit#: [id number] Attend Dr: Ingrid Wolfe MD Re12/14/23 Status: DEP REF Location: HO.LNP Disch: ----- ------- SPEC : [id number] RECD: 12/14/231420 STATUS: LATISHA VARELA NUM: [id number] JUANCARLOS: 12/14/23-[address] [facility] DR: Ingrid Wolfe MD ENTERED: 12/14/23-3832 SP TYPE: Pap Smr ANGEL GUY: ORDERED: Pap Smear Interpretation Satisfactory for evaluation. Negative for intraepithelial lesion or malignancy. Clinical Information LMP: Unknown date Previous PAP test: Unknown date/findings Other history: Hx cervical CA 5y ago Material Received ThinPrep-Vaginal/Cervical ----- ------- Signed (signature on file) CLARISA Lu (ASCP) 01/02/24 1154 ----- ------- END OF REPORT Ingrid Wolfe MD LAB CYTOLOGY ORDERABLES Final Result Performing Organization Address [facility] [place]/ZIP Co de Phone Number [facility] [address] [place], [place] [phone] * (ABNORMAL) Hm Colonoscopy (04/27/2023) Colonoscopy Abnormal(A ) Normal [facility] Ingrid Wolfe MD HEALTH MAINTENANCE Final Result Performing Organization Address [facility] Co de Phone Number [facility] [address] [place], [place] [phone] * Image-Guided Pap with Age-Based Screening??with CT/NG,??Trichomonas (11/29/2022 10:52 AM EDT) Comment [facility] Comment: This order for age-based cervical cancer and STI screening follows ACOG guidelines(PB 168, 140, AAK766). See individual assays for performing site location. Clinical Information: HISTORY OF HYST DUE YUSUF [facility] [employer] LMP: NONE GIVEN [facility] Prev. PAP: YES [facility] Prev. BX: NONE GIVEN [facility] SOURCE: None given [facility] [place] [facility] Statement Of Adequacy: SATISFACTORY FOR EVALUATION [facility] [place] [facility] Interpretation/Re sult: Negative for intraepithelial lesion or malignancy. [facility] [place] [facility] COMMENT: This Pap test has been evaluated with computer assisted technology. [facility] [place] [facility] Topper Press Operator Automatic: [employer] [place] [facility] Comment: KF, CT(ASCP) CT screening location: [place] [address] Review Topper Press Operator Automatic: [facility] [place] [facility] Comment: BLC,CT(ASCP) CT screening location: [place] [address] (Always Message) [facility] [employer] [place] [employer] Comment: EXPLANATORY NOTE: The Pap is a [...] HPV nRNA E6/E7 Not Detected Not Detected [facility] Comment: Methodology: Online Community Manager-Mediated Amplification This assay detects E6/E7 viral messenger RNA (mRNA) from 14 high-risk HPV types (16,18,31,33,35,39,45,51,52,56,58,59,66,68). Cervical sources are required for HPV testing. If a vaginal source from a patient who has had a total hysterectomy with removal of cervix was submitted, please contact the testing laboratory for alternative testing options. For additional information, please refer to http://education.Spredfashion/faq/NJO813f6 (This link if provided for information/ educational purposes only.) Chlamydia trachomatis RNA, TMA, Urogenital NOT DETECTED NOT DETECTED [facility] Neisseria gonorrhoeae RNA, TMA, Urogenital NOT DETECTED NOT DETECTED [facility] (Always Message) [facility] Comment: The analytical performance characteristics of this assay, when used to test SurePath(TM) specimens have been determined by [facility]. The modifications have not been cleared or approved by the FDA. This assay has been validated pursuant to the CLIA regulations and is used for clinical purposes. For additional information, please refer to https://Quad/Graphics.Ingeniatrics.[employer]/faq/FRE908 (This link is being provided for information/ educational purposes only.) Trichomonas vaginalis, QL, TMA, PAP Vial NOT DETECTED NOT DETECTED [facility] Comment: The analytical performance characteristics of this assay have been determined by [facility]. The modifications have not been cleared or approved by the FDA. This assay has been validated pursuant to the CLIA regulations and is used for clinical purposes. For additional information, please refer to http://Quad/Graphics.Spredfashion/ faq/Trichomonastma (This link is being provided for information/ educational purposes only.) Cytology specimen container (physical object) 11/29/2022 10:52 AM EDT 11/30/2022 12:36 AM EDT [facility]ann [facility] LAB CYTOLOGY ORDERABLES F inal Result [facility] [address], [place] [phone] [facility] [place] [facility] [address] [place] [phone] from Last 3 Months or Most Recently Relevant to Health Maintenance Insurance [facility] C3 HSN FULL [place] [id number] DENTAL-[facility] MEDICAID STAND ADULT [place] [id number] [place] [id number] [place] [id number] Care Teams Export Packer Relationship Specialty Start Date End Date Ingrid Wolfe MD [address] [place], [place] [phone] PCP - General Internal Medicine 09/10/22 Nick Castellanos FNP [address] [place] [address] Nurse Practitioner Family Medicine 07/04/23 Apolonia Mars career guidance technician Travel Accommodations [employer] 11/16/23
--- OUTSIDE RECORDS SUMMARY | 2025-05-20 09:01 | XMS_ITS | Encounter Summary ---
Author Organization [email or web address] Address [address] [place] [address] [address] [place] [address] Care Team Providers Care French Lecturer Name Role Phone Cheryl Fitzpatrick MD Primary Care Provider + Nick Castellanos Unavailable Unavailable Encounter Details Date Type Department Care Team (Late st Contact Info) Description 03/28/2025 Telephone [facility] [address] [place], [place] [phone] Cheryl Fitzpatrick MD [address] [place], [place] [phone] Social History Tobacco Use Types Packs/Day Years [...] Office Visit [facility] OPTOMETRY [address] [place] [address] Salena Garcia, ELLIS [address] [place] [address] documented as of this encounter Goals Goal [...] documented as of this encounter Care Teams French Lecturer Relationship Specialty Start Date End Date Cheryl Fitzpatrick MD [address] [place] [address] PCP - General Internal Medicine 09/10/22 Nick Castellanos FNP [address] [place] [address] Nurse Practitioner Family Medicine 07/04/23 Apolonia Mars rn wound care Collection SpecialistAnnealer 11/16/23 documented as of this encounter
== END 2025-05-20 09:21 | disposition home or self-care (01) ==
LOC: HO.HGI 08:35
PROVIDERS: PCP Internal Medicine; Visit Provider Nurse Practitioner Family
DX: R13.10 Dysphagia, unspecified (principal); K21.9 Gastro-esophageal reflux disease without esophagitis; R14.0 Abdominal distension (gaseous); K59.01 Slow transit constipation; R10.13 Epigastric pain
CPT/HCPCS: 99214

== ENCOUNTER 2025-07-12 09:33 | Outpatient (REF) | payer MEDICAID, SELFPAY ==
--- NOTE | ~2025-07-12 | US_ITS ---
EXAMINATION: US ABDOMEN LIMITED WITH LIVER ELASTOGRAPHY HISTORY: K76.0 - Fatty (change of) liver, not elsewhere classified TECHNIQUE: Real-time grayscale ultrasound imaging of the right upper quadrant was performed and images were reviewed. COMPARISON: Comparison is made with the prior examination dated 02/04/2025. FINDINGS: Liver: The right lobe of the liver measures 15.8 cm in size. The left lobe of the liver measures 11.2 cm in size. The liver demonstrates increased echotexture, consistent with steatosis. Again seen is a 1.3 x 1.8 x 1.6 cm echogenic mass in the right lobe which likely represents a hemangioma. No intrahepatic biliary ductal dilatation is identified. There is normal hepatopedal flow in the portal vein. Ultrasound elastography of the liver was performed with 10 separate measurements of the liver parenchyma with the patient in the supine position. Measurements were obtained approximately 2 cm below Sherry's capsule and perpendicular to the capsule. The median shear wave velocity is 0.88 m/s. The interquartile range/median (IQR/median) is 0.15. Gallbladder and biliary tree: The gallbladder is unremarkable, without evidence of calculi, wall thickening, or pericholecystic fluid. There is no sonographic Vivar sign. The common bile duct is normal in caliber measuring 3 mm. Right Kidney: The right kidney measures 13.6 cm in length. There is mild fullness of the renal pelvis. No masses or calculi are identified. Pancreas: The pancreatic head, neck, and body are unremarkable. The pancreatic tail is obscured by bowel gas. Abdominal aorta and inferior vena cava: The visualized portions of the abdominal aorta and inferior vena cava are normal in caliber. There is no free fluid in the right upper quadrant. US/US abdomen burnett w elastography IMPRESSION: Hepatic steatosis. The median shear wave velocity in the liver is 0.88 m/s, corresponding to a median liver stiffness of 2.3 kPa. The IQR/median value is 0.15. This is indicative of a quality data set. Findings are indicative of a normal elastography value with a low likelihood of severe fibrosis or cirrhosis. REFERENCE: Society of Radiologists in Ultrasound Liver Stiffness Thresholds (2020): LIVER STIFFNESS THRESHOLDS: *Shear wave velocity less than 1.3 m/s (Liver Stiffness equal or less than 5 kPa): High probability of being normal. *Shear wave velocity less than 1.7 m/s (Liver Stiffness less than 9 kPa): In the absence of other known clinical signs, rules out compensated advanced chronic liver disease. *Shear wave velocity between 1.7-2.1 m/s (Liver Stiffness 9-13 kPa): Suggestive of compensated advanced chronic liver disease but need further test for confirmation. *Shear wave velocity between 2.1-2.4 m/s (Liver Stiffness 13-17 kPa): Rules in compensated advanced chronic liver disease. *Shear wave velocity greater than 2.4 m/s (Liver Stiffness over 17 kPa): Suggestive of clinically significant portal hypertension. QUALITY OF DATA SET: *IQR/Median value equal or less than 0.30 implies a quality data set. *IQR/Median value over 0.30 implies a poor quality data set. SIGNIFICANT CHANGE FROM PRIOR EXAM: Significant change if liver stiffness measurement is 10% or greater from prior exam. OTHER CONSIDERATIONS: The stage of liver fibrosis may be overestimated in the setting of acute hepatitis, liver inflammation, elevated liver function tests, hepatic vascular congestion, obstructive cholestasis, non-fasting state, and infiltrative diseases such as amyloidosis and lymphoma. In some patients with NAFLD, the liver stiffness thresholds for compensated advanced chronic liver disease may be lower. In causes other than viral hepatitis and NAFLD, liver stiffness thresholds are not well established. Electronically signed by: Marcus Guerra MD 07/12/2025 10:14 AM VADIM
--- OUTSIDE RECORDS SUMMARY | 2025-07-12 10:13 | XMS_ITS | Encounter Summary ---
Author Organization [employer] Address [address] [place] [address] Care Team Providers Care Route Service Representative Name Role Phone Cheryl Fitzpatrick MD Primary Care Provider + Nick Castellanos MULTIMEDIA JOURNALIST Unavailable Unavailable Reason for Referral * Consultation (STAT) - Authorized Specialty Diagnoses / Procedures Referred By Contjana t Referred To Contact Psychiatry Diagnoses Generalized anxiety disorder Major depressive disorder, recurrent episode, severe with mood-congruent psychotic features (CMS/HCC) (HCC) Procedures Referral to Behavioral Health Lamar Conteh [address] [place] [address] Phone: tel: fax: Referral ID Status Reason Start Date Expiration Date Visits Requested Visits Authorized [id number] Authorized Specialty Services Required 5 01/07/2027 1 1 Reason for Visit * Reason Onset Date Comments Clonazepam request 07/09/2025 Encounter Details Date Type Department Care Team ([facility] st Contact Info) Description 07/09/2025 Telephone [facility] [address] [place], [place] [id number] Court Cordova RN Clonazepam request Social History Tobacco Use Types Packs/Day Years [...] encounter Miscellaneous Notes * Telephone Encounter - Pradeep Simpson - 07/10/2025 11:22 AM EST Tc from pt reporting that she has an apt set up for a psychiatrist on 07/16/2025 at 1:00pm. Any questions contact the pt at [phone] * Addendum Note - Lamar Conteh - 07/09/2025 3:37 PM ESTAddended by: LAMAR CONTEH on: 07/09/2025 03:37 PM Modules accepted: Orders * Telephone Encounter - Court Cordova RN - 07/09/2025 12:32 PM EST TC to patient via P/I#[id number], reviewed with patient PCP would like pt to continue to receive her Clonazepam / psychiatric medications from a psychiatrist. Patient stated her therapist had told her she could help her get a new psychiatrist if she needs it. Encouraged patient to call her therapist and to f/u with this sql report writer after she speaks with her. Patient is also agreeable for referral to [facility], pt stated she would like to know all her options. notified of patient agreement. documented in this encounter Plan of Treatment Upcoming Encounters Date Type Department Care Team (Late st Contact Info) Description 08/27/2025 10:30 AM EST Office Visit [facility] [address] [place] [address] Cheryl Fitzpatrick MD [address] [place] [address] documented as of this encounter Goals Goal Patient Goal Type Associated Problems Recent Progress Patient-Stated? Author Blood Pressure < 140/90 Blood Pressure 110/70(2024 9:50 AM EDT) No Kenzie Antunez, PharmMiguel Hemoglobin A1c < 7 Result Component 8.2( 10:41 AM EDT) No Kenzie Antunez, PharmD Help patients manage their type 2 diabetes Care Plan Help patients manage their type 2 diabetes No Richard Osorio Weekly blood pressure task Care Plan Weekly blood pressure task No Richard Osorio Help patients manage their type 2 diabetes Care Plan Help patients manage their type 2 diabetes No Richard Osorio Patient has diabetic eye disease Care Plan Patient has diabetic eye disease No Richard Osorio Help patients manage their type 2 diabetes Care Plan Help patients manage their type 2 diabetes No Richard Osorio Patient has chronic kidney disease Care Plan Patient has chronic kidney disease No Richard Osorio Weekly blood pressure task Care Plan Weekly blood pressure task No Richard Osorio Weekly blood pressure task Care Plan Weekly blood pressure task No Richard Osorio Patient has diabetic eye disease Care Plan Patient has diabetic eye disease No Rihcard Osorio Patient has diabetic eye disease Care Plan Patient has diabetic eye disease No Richard Osorio Patient has chronic kidney disease Care Plan Patient has chronic kidney disease No Richard Osorio Patient has chronic kidney disease Care Plan Patient has chronic kidney disease No Richard Osorio Weekly blood pressure task Care Plan Weekly blood pressure task No Agis, Lamar Weekly blood pressure task Care Plan Weekly blood pressure task No Agis, Lamar Weekly blood pressure task Care Plan Weekly blood pressure task No Agis, Lamar Patient has diabetic eye disease Care Plan Patient has diabetic eye disease No Agis, Lamar Patient has diabetic eye disease Care Plan Patient has diabetic eye disease No Agis, Lamar Patient has diabetic eye disease Care Plan Patient has diabetic eye disease No Agis, Lamar Patient has chronic kidney disease Care Plan Patient has chronic kidney disease No Agis, Lamar Patient has chronic kidney disease Care Plan Patient has chronic kidney disease No Agis, Lamar Patient has chronic kidney disease Care Plan Patient has chronic kidney disease No Agis, Lamar Weekly blood pressure task Care Plan Weekly blood pressure task No Court Cordova RN Weekly blood pressure task Care Plan Weekly blood pressure task No Court Cordova RN Weekly blood pressure task Care Plan Weekly blood pressure task No Court Cordova, RN Patient has diabetic eye disease Care Plan Patient has diabetic eye disease No Court Cordova RN Patient has diabetic eye disease Care Plan Patient has diabetic eye disease No Court Cordova RN Patient has diabetic eye disease Care Plan Patient has diabetic eye disease No Court Cordova, RN Patient has chronic kidney disease Care Plan Patient has chronic kidney disease No Court Cordova, BILLIE Patient has chronic kidney disease Care Plan Patient has chronic kidney disease No Court Cordova RN Patient has chronic kidney disease Care Plan Patient has chronic kidney disease No Court Cordova, RN Weekly blood pressure task Care Plan Weekly blood pressure task No Selam Mars Weekly blood pressure task Care Plan Weekly blood pressure task No Selam Mars Weekly blood pressure task Care Plan Weekly blood pressure task No Selam Mars Patient has diabetic eye disease Care Plan Patient has diabetic eye disease No Selam Mars Patient has diabetic eye disease Care Plan Patient has diabetic eye disease No Selam Mars Patient has diabetic eye disease Care Plan Patient has diabetic eye disease No Selam Mars Patient has chronic kidney disease Care Plan Patient has chronic kidney disease No Selam Mars Patient has chronic kidney disease Care Plan Patient has chronic kidney disease No Selam Mars Patient has chronic kidney disease Care Plan Patient has chronic kidney disease No Selam Mars Weekly blood pressure task Care Plan Weekly blood pressure task No Kimberly Dm Weekly blood pressure task Care Plan Weekly blood pressure task No Kimberly Dm Weekly blood pressure task Care Plan Weekly blood pressure task No Kimberly Dm Patient has diabetic eye disease Care Plan Patient has diabetic eye disease No Kimberly, Dm Patient has diabetic eye disease Care Plan Patient has diabetic eye disease No Kimberly Dm Patient has diabetic eye disease Care Plan Patient has diabetic eye disease No Kimberly Dm Patient has chronic kidney disease Care Plan Patient has chronic kidney disease No Kimberly, Dm Patient has chronic kidney disease Care Plan Patient has chronic kidney disease No Kimberly, Dm Patient has chronic kidney disease Care Plan Patient has chronic kidney disease No Kimberly, Dm Weekly blood pressure task Care Plan Weekly blood pressure task No Leslee Olivia Weekly blood pressure task Care Plan Weekly blood pressure task No Leslee Olivia Weekly blood pressure task Care Plan Weekly blood pressure task No Leslee Olivia Patient has diabetic eye disease Care Plan Patient has diabetic eye disease No Leslee Olivia Patient has diabetic eye disease Care Plan Patient has diabetic eye disease No Leslee Olivia Patient has diabetic eye disease Care Plan Patient has diabetic eye disease No Leslee Olivia Patient has chronic kidney disease Care Plan Patient has chronic kidney disease No Leslee Olivia Patient has chronic kidney disease Care Plan Patient has chronic kidney disease No Leslee Olivia Patient has chronic kidney disease Care Plan Patient has chronic kidney disease Leslee Umanzor documented as of this encounter Visit Diagnoses Diagnosis Generalized anxiety disorder- Primary Major depressive disorder, recurrent episode, severe with mood-congruent psychotic features (CMS/HCC) (HCC) documented in this encounter Additional Health Concerns Active Problems Noted Date Diagnosed Date Help patients manage their type 2 diabetes 07/09 Weekly blood pressure task 07/09/2025 Help patients manage their type 2 diabetes 07/09 Patient has diabetic eye disease 07/09/2025 Help patients manage their type 2 diabetes 07/09 Patient has chronic kidney disease 07/09/2025 Weekly blood pressure task 07/09/2025 Weekly blood pressure task 07/09/2025 Patient has diabetic eye disease 07/09/2025 Patient has diabetic eye disease 07/09/2025 Patient has chronic kidney disease 07/09/2025 Patient has chronic kidney disease 07/09/2025 Weekly blood pressure task 07/09/2025 Weekly blood pressure task 07/09/2025 Weekly blood pressure task 07/09/2025 Patient has diabetic eye disease 07/09/2025 Patient has diabetic eye disease 07/09/2025 Patient has diabetic eye disease 07/09/2025 Patient has chronic kidney disease 07/09/2025 Patient has chronic kidney disease 07/09/2025 Patient has chronic kidney disease 07/09/2025 Weekly blood pressure task 07/09/2025 Weekly blood pressure task 07/09/2025 Weekly blood pressure task 07/09/2025 Patient has diabetic eye disease 07/09/2025 Patient has diabetic eye disease 07/09/2025 Patient has diabetic eye disease 07/09/2025 Patient has chronic kidney disease 07/09/2025 Patient has chronic kidney disease 07/09/2025 Patient has chronic kidney disease 07/09/2025 Weekly blood pressure task 07/11/2025 Weekly blood pressure task 07/11/2025 Weekly blood pressure task 07/11/2025 Patient has diabetic eye disease 07/11/2025 Patient has diabetic eye disease 07/11/2025 Patient has diabetic eye disease 07/11/2025 Patient has chronic kidney disease 07/11/2025 Patient has chronic kidney disease 07/11/2025 Patient has chronic kidney disease 07/11/2025 Weekly blood pressure task 07/11/2025 Weekly blood pressure task 07/11/2025 Weekly blood pressure task 07/11/2025 Patient has diabetic eye disease 07/11/2025 Patient has diabetic eye disease 07/11/2025 Patient has diabetic eye disease 07/11/2025 Patient has chronic kidney disease 07/11/2025 Patient has chronic kidney disease 07/11/2025 Patient has chronic kidney disease 07/11/2025 Weekly blood pressure task 07/11/2025 Weekly blood pressure task 07/11/2025 Weekly blood pressure task 07/11/2025 Patient has diabetic eye disease 07/11/2025 Patient has diabetic eye disease 07/11/2025 Patient has diabetic eye disease 07/11/2025 Patient has chronic kidney disease 07/11/2025 Patient has chronic kidney disease 07/11/2025 Patient has chronic kidney disease 07/11/2025 Assessment Noted Time PHQ-9 Depression Total Score: 12 025 10:40 AM EDT documented as of this encounter Care Teams Route Service Representative Relationship Specialty Start Date End Date Cheryl Fitzpatrick MD [address] [place] [address] PCP - General Internal Medicine 09/10/22 Nick Castellanos FNP [address] [place] [address] Nurse Practitioner Family Medicine 07/04/23 Apolonia Mars director day care center [employer] Games DealerHead Of Ethics And Compliance 11/16/23 documented as of this encounter
--- OUTSIDE RECORDS SUMMARY | 2025-07-12 10:13 | XMS_ITS | Clinical Summary ---
Author Organization [employer] Co[employer] Address [address] [facility] [address] [place] [address] Care Team Providers Care Tmr Teacher Name Role Phone Ingrid Wolfe MD Primary Care Provider + Nick Castellanos TRASHMAN Unavailable Unavailable Allergies Active Allergy Reactions Criticality [...] hyperglycemia, with long-term current use of insulin ([facility]),Anxiety Take 1 tablet (300 mg) by mouth in the morning. Do not crush, chew, or split. 90 tablet 3 024 Active clonazePAM (KlonoPIN) 2 MG tabletIndicatio ns:Type 2 diabetes mellitus with hyperglycemia, with long-term current use of insulin ([facility]) Take 1 tablet (2 mg) by mouth every 8 (eight) hours. 84 tablet 5 024 Active QUEtiapine (SEROquel) 300 MG tabletIndicatio ns:Type 2 diabetes mellitus with hyperglycemia, with long-term current use of insulin ([facility]) Take 0.5 tablets (150 mg) by mouth in the morning AND 2 tablets (600 mg) at bedtime. 225 tablet 3 024 Active traZODone (Desyrel) 100 MG tabletIndicatio ns:Type 2 diabetes mellitus with hyperglycemia, with long-term current use of insulin ([facility]),Anxiety TAKE 2 TABLET BY MOUTH QHS 180 [...] hyperglycemia, with long-term current use of insulin ([facility]) INJECT 72 UNITS SUBCUTANEOUSLY EVERY EVENING 30 mL 7 024 Active insulin lispro (HumaLOG) 100 UNIT/ML injectionIndica tions:Type 2 diabetes mellitus with hyperglycemia, with long-term current use of insulin ([facility]),Anxiety INJECT 10 UNITS SUBCUTANEOUSLY BEFORE MEALS 15 mL 7 Active TRUEplus Lancets 33G miscIndications :Type 2 diabetes mellitus with hyperglycemia, with long-term current use of insulin (HCC),Anxiety TEST BLOOD SUGAR BEFORE MEALS AND SNACKS AND BEFORE BEDTIME 100 each 11 Active Pentips Generic Pen [place] 32G X 4 MM miscIndications :Type 2 diabetes mellitus with hyperglycemia, with long-term current use of insulin ([facility]),Anxiety USE FOUR TIMES DAILY 100 each 025 Active rosuvastatin (Crestor) 20 MG tablet Take 1 tablet (20 mg) by mouth at bedtime. 90 tablet 3 025 2025 Active triamcinolone (Kenalog) 0.1 % creamIndication s:Flexural eczema Apply topically 2 times daily. 30 g 2 Active gabapentin (Neurontin) 800 MG tabletIndicatio ns:Anxiety,Migr milana with aura and without status migrainosus, not intractable TAKE 1 TABLET BY MOUTH THREE TIMES DAILY IN THE MORNING, AT NOON, AND AT BEDTIME 90 tablet 5 Active ARIPiprazole (Abilify) 30 MG tablet Take 30 mg by mouth in the morning. Active busPIRone (Buspar) 5 MG tablet Take 1 tablet by mouth every 6 (six) hours during the day. Active Continuous Glucose Sensor (Dexcom G7 Sensor) [facility] Active cyclobenzaprine (Flexeril) 10 MG tablet Take [...] hyperglycemia, with long-term current use of insulin ([facility]) USE DIRECTED TO TEST BLOOD SUGAR NEEDED FOR HYPOGLYCEMIA 50 strip 5 025 Active losartan-hydroC HLOROthiazide (Hyzaar) 50-12.5 MG tabletIndicatio ns:Primary hypertension TAKE 1 TABLET BY MOUTH EVERY MORNING 90 tablet 1 025 Active Asmanex HFA 200 MCG/ACT aerosolIndicati ons:Mild intermittent asthma with exacerbation INHALE 2 PUFFS BY MOUTH TWICE DAILY IN THE MORNING AND IN THE EVENING RINSE MOUTH AFTER USING. 13 g 3 025 Active topiramate 50 MG tabletIndicatio ns:Migraine with aura and without status migrainosus, not intractable Take 1 tablet (50 mg) by mouth at bedtime. 90 tablet 025 Active lidocaine-prilo eloy (Emla) 2.5-2.5 % cream APPLY TOPICALLY TO THE AFFECTED AREA(S) EVERY TWELVE HOURS NEEDED FOR MILD PAIN 30 g 1 025 Active Jardiance 25 MGIndications:T ype 2 diabetes mellitus with hyperglycemia, with long-term current use of insulin ([facility]) TAKE 1 TABLET BY MOUTH EVERY MORNING 30 tablet 3 025 Active lidocaine-prilo eloy (Emla) 2.5-2.5 % cream Apply topically every 12 (twelve) hours if needed for mild pain. 30 g 1 025 2024 Discontinued Jardiance 25 MGIndications:T ype 2 diabetes mellitus with hyperglycemia, with long-term current use of insulin ([facility]) TAKE 1 TABLET BY MOUTH EVERY MORNING 30 tablet 3 025 2024 Discontinued topiramate 50 MG tabletIndicatio ns:Migraine with aura and without status migrainosus, not intractable TAKE 1 TABLET BY MOUTH AT BEDTIME 90 tablet 025 2024 Discontinued(R eorder (will not trigger notification to Pharmacy)) Active Problems Problem Noted Date Diagnosed Date [...] life style modifications, diet and referral to facility specialist. Recommended to decrease soda and sugary beverage consumption, increase protein intake with meals (at least 1 portion of protein with each meal) to assist with satiety, increase dietary fiber Recommended at least 150 min/week of moderate intensity exercise. Continue to follow-up with dietitian Rx [place], phentermine is contraindicated due to patient's uncontrolled anxiety, she is on multiple medications for depression and anxiety. Assessment & Plan (07/17/2024 1:23 PM EST): Discussed re weight reduction options including exercise, life style modifications, diet and referral to facility specialist. Recommended to decrease soda and sugary [...] (10/21/2023 11:33 AM EST): Seen recently by fine grade bulldozer operator, fu every 6 m A1c is improving but not at goal, FU with executive assistant (I gave pt phone number to schedule appointment, I will refer to casework supervisor to support her to keep her appointment) No change in medication and fu with executive assistant Papilloma 06/24/2023 Retained dental root 05/18/2023 Major [...] Psychiatric medications were started by provider in [place], with high-dose Clonazepam. She previously experienced severe [...] but she will be referred to new [facility] pyschiatric prescriber. She gives verbal permission [...] psychiatric symptoms. Any issues or concerns, contact [facility]. All her questions were answered and [...] Psychiatric medications were started by provider in [place], with high-dose Clonazepam. She previously experienced severe [...] Psychiatric medications were started by provider in [place], with high-dose Clonazepam. She previously experienced severe [...] letters and forms, she should F/U with [facility] Medical Records. It is clear she [...] Psychiatric medications were started by provider in [place], with high-dose Clonazepam. She previously experienced severe [...] Psychiatric medications were started by provider in [place], with high-dose Clonazepam. She previously experienced severe [...] her room will be given to the [id number], and pt anticipates becoming homeless. Has been [...] her room will be given to the [id number], and pt anticipates becoming homeless. Has been [...] it is difficult for her to access [facility] every week fu with neurology next month Housing instability, currently housed 02/17/2023 Assessment & Plan (05/06/2023 1:51 PM EDT): Has to leave her daughter's home in 30d Will refer to [facility] to help her in the process of finding a room or half-way I suggested to place her cat with the [facility] shelters for cats, at least [...] daughter's home in 30d Will refer to [facility] to help her in the process of finding a room or half-way I suggested to place her cat with the [facility] shelters for cats, at least temporarily while [...] and arguments with her daughters I provided half-way information and she will follow up with [...] clinician will complete referral for psychopharmacology at [facility]. Clinician educated patient on coping skills [...] supports PLAN: 1. Follow up with [facility]: Not recommended for follow-up 2. Patient goal is to established psychiatry service 3. Behavioral Recommendations a. Patient will continue to comply with medication b. Patient will utilze new coping skills c. Patient will reach out to a [facility], if needed Assessment & Plan (01/06/2023 12:01 [...] last pill. Pt to be seen by DAM TENDER nurse. Pt agreed to be referred to pill boxes. Assessment & Plan (12/21/2022 3:44 PM EDT): Patient has not received fu appt from counselor within the past month, she cant travel to [place], would like it all within the same area ([place] or [facility]) I will refer to our service and continue same meds. Assessment & Plan (11/15/2022 11:55 AM EDT): continue Wellbutrin and Seroquel for now continue to fu closely with psychotherapist she will orange picking supervisor prescription for clonazepam today and discussed with her about requesting refill through [facility] at least 3 days prior to last [...] yet. Advised to continue to follow-up with executive assistant in 2 weeks, she definitely would benefit [...] meals, avoid long periods of fasting. FU [facility] endocrinology next mo Assessment & Plan (10/09/2024 3:58 PM EST): Uncontrolled, she needs appointment with executive assistant. Start Mounjaro 2.5 mg and FU in 4 weeks to assess tolerance, I told her she needs to r/s appointment with executive assistant. Continue Tresiba 72 units + Humalog TID ac meals + Jardiance. I discuss with her the importance of having small infraction meals, avoid long periods of fasting. Assessment & Plan (07/17/2024 1:23 PM EST): Uncontrolled. Pt to FU with endocrinology in 3 days. Assessment & Plan (04/25/2024 3:30 PM EDT): A1c is improving, not at goal. Continue to follow up closely with executive assistant team. No change in medications. Assessment & Plan (03/13/2024 1:40 PM EDT): Improving, A1c not at goal yet. FU endocrinology on 03/08 ([facility] Continue on Tresiba, Humalog, Jardiance Counseled [...] and FU closely with DM educator an executive assistant clinic Counseled re more frequent low calorie/carb meals. Encouraged physical activity as tolerated. FU in 3 months Coulsened to have Covid booster LULÚ Assessment & Plan (06/10/2023 11:36 AM EDT): Uncontrolled Counseled to use Humalog prior to each meal, she has sofia with endo scheduled on 06/22/23 at 1:30 at [facility] endo, information given [...] finding adequate food, counseled to go to [employer] to use HIP program. Needs to endocrinology appt, info given Assessment & Plan (03/24/2023 1:42 PM EDT): A1C is uncontrolled, getting worse unclear if related to seroquel and poor adherence to diet increase tresiba to 55 units per day and continue humalog start jardiance 25 mg and fu in 4-6 weeks new referral to executive assistant as local executive assistant is not accepting new patients Counseled re [...] before breakfast and dinner and refer to executive assistant Assessment & Plan (12/21/2022 10:23 AM EDT): [...] starts seeing psychiatrist Has an appointment with chief strategy officer fu in 2 months Assessment & Plan [...] smoking, use nicotine gum prn Pituitary adenoma ([facility]) 10/17/2023 12/07/2024 Assessment & Plan (12/07/2024 2:45 [...] episode of recurren t major depressive disorder ([facility]) 01/20/2023 04/08/2023 Assessment & Plan (02/17/2023 11:56 [...] clinician will complete referral for psychopharmacology at [facility]. Clinician educated patient on coping skills [...] supports PLAN: 1. Follow up with [facility]: Not recommended for follow-up 2. Patient goal is to established psychiatry service 3. Behavioral Recommendations a. Patient will continue to comply with medication b. Patient will utilze new coping skills c. Patient will reach out to a [facility], if needed Left foot pain 10/01/2022 02/21/2025 [...] take Wellbutrin and Seroquel daily Refer to [facility] Pt has crisis number and is able to contract for safety. Encounters * This document contains information received from the source organization and may not represent a complete record from that organization. Date Type Department Care Team Description 07/11/2025 Patient Outreach [address] [address] Ingrid Wolfe MD Care Coordination (CHW outreach for SDOH PT-1 and food needs-referral completed /) 07/11/[address] [address] Ingrid Wolfe MD PT1 07/09/[address] [address] [address] [place], [place] Clonazepam request 07/09/[address] [address] Ingrid Wolfe MD Med Refill 07/07/[address] [address] Ingrid Wolfe MD Type 2 diabetes mellitus with hyperglycemia, with long-term current use of insulin (HCC) 07/05/[address] [address] Ingrid Wolfe MD 06/27/2025 9:00 AM EST Office Visit [facility] [address] [place] [address] Salena Garcia, OD Type 2 diabetes mellitus without ophthalmic manifestations (HCC) (Primary Dx); Cyst of left lower eyelid; Combined forms of age-related cataract of both eyes; Strabismic amblyopia, left eye; Dry eyes; Regular astigmatism of both eyes with presbyopia 06/27/[address] [address] Ingrid Wolfe MD August06/27/2025 Travel 06/19/2025 Patient Outreach [address] [address] Ingrid Wolfe MD Care Coordination (CHW outreach for SDOH PT-1 and food needs-referral completed /) 06/19/[address] [place] [address] Ingrid Wolfe MD pt1 06/14/2025 Refill [facility] [address] [place] [address] Ingrid Wolfe MD Migraine with aura and without status migrainosus, not intractable 06/08/2025 Refill [facility] [address] [place] [address] Ingrid Wolfe MD Mild intermittent asthma with exacerbation 05/20/2025 Orders Only GENERIC EXTERNAL DATA DEPARTMENT Provider, Generic External Data 05/14/2025 Refill [facility] [address] [place] [address] Ingrid Wolfe MD Primary hypertension 04/18/2025 Refill [facility] [address] [place] [address] Alejandra Dyer MD Type 2 diabetes mellitus with hyperglycemia, with long-term current use of insulin ([facility]) 04/16/2025 Orders Only GENERIC EXTERNAL DATA DEPARTMENT Provider, Generic External Data 04/12/2025 Travel from Last 3 Months Immunizations Immunization Administration [...] Description 08/27/2025 10:30 AM EST Office Visit [facility] [address] [place] [address] Ingrid Wolfe MD [address] [place] [address] Health Maintenance Due Date Last Done Comments CT Colonography 1975 Dental Prophylaxis 1975 FIT DNA/Cologuard 1975 FIT 1975 FOBT 1975 Sigmoidoscopy 1975 Alcohol/Substance Use Screening 1987 Family Planning (PISQ) 1990 Hepatitis A Vaccines (1 of 2 - Risk 2-dose series) 1994 Dental X-Ray: [facility] 09/18/2023 09/17/2022 COVID-19 Vaccine ( season) 2025 10/01/2022 Influenza Vaccine (#1) 2025 10/09/2024, 2022 Diabetes: Hemoglobin A1C 05/24/2025 025, 10/09/2024, 07/17/2024, Additional history exists SDOH Screening 07/18/2025 07/18/2024 Depression Monitoring 08/24/2025 02/21/2025, 025 Dental Oral Exam 08/25/2025 02/21/2025, 01/2024, 09/17/2022 Diagnostic Breast Imaging 09/06/20252024, 09/04/2024, 02/09/2024 Mammogram 09/06/2025 03/06/2025, 02/19, 09/04/2024, Additional history exists Zoster Vaccines (1 of 2) 2025 Lipid Panel 11/29/2025 11/29/2024, 09/22, 08/31/2024, Additional history exists Diabetes: Urine Protein Screening 02/11/2026 02/11/2025, 08/31/2024, 06/21/2023, Additional history exists Diabetes: Foot Exam 02/21/2026 02/21/2025, 02/21/2025, 02/21/2025, Additional history exists Disability Screening 02/21/2026 02/21/2025 Eye Exam 06/27/2026 06/27/2025, 1101/2025, 06/27/2025, Additional history exists Tobacco Screening 06/27/2026 06/27/2025 Dental X-Ray: Full Mouth 07/28/2027 024, 02/08/2023, [...] Pressure 110/70(2024 9:50 AM EDT) No Kenzie Antunez PharmD Hemoglobin A1c < 7 Result Component 8.2( 10:41 AM EDT) No Kenzie Antunez PharmD Help patients manage their type 2 diabetes Care Plan Help patients manage their type 2 diabetes No Richard Oosrio Weekly blood pressure task Care Plan Weekly [...] eye disease No Richard Osorio Patient has diabetic eye disease Care Plan Patient has diabetic eye disease No Richard Osorio Patient has chronic kidney disease Care Plan Patient has chronic kidney disease No Richard Osorio Patient has chronic kidney disease Care Plan Patient has chronic kidney disease No Richard Osorio Weekly blood pressure task Care Plan Weekly blood pressure task No AgisLamar Weekly blood pressure task Care Plan Weekly [...] blood pressure task No Court [place]ova RN Patient has diabetic [...] chronic kidney disease No Court Cordova RN Weekly blood pressure [...] Care Plan Weekly blood pressure task No Dm Harris Weekly blood pressure task Care Plan Weekly [...] Plan Patient has chronic kidney disease No Dm Harris Patient has chronic kidney disease Care Plan Patient has chronic kidney disease No Dm Harris Weekly blood pressure task Care Plan Weekly [...] has chronic kidney disease No Leslee Olivia Procedures Procedure Name Priority Date/Time Associated Diagnosis Comments VITAMIN D 25-OH (D2 AND D3) Routine 05/20/2025 9:50 AM EDT TISSUE TRANSGLUTAMINASE AB, IGG Routine 05/20/2025 9:50 AM EDT VITAMIN B12/FOLATE, SERUM PANEL Routine 05/20/2025 9:50 AM EDT TSH W/REFLEX TO FT4 Routine 05/20/2025 9 :50 AM EDT XR SHOULDER 2+ VIEWS BILATERAL Routine 04/16/2025 1:34 PM EDT URINALYSIS, COMPLETE, WITH REFLEX TO CULTURE Routine 04/16/2025 11:54 AM EDT HCG, TOTAL, QN Routine 04/16/2025 11:46 AM EDT HIGH SENSITIVITY TROPONIN I Routine 04/16/2025 11:46 AM EDT CREATINE KINASE, TOTAL Routine 11:46 AM EDT MAGNESIUM Routine 04/16/2025 11:46 AM EDT COMPREHENSIVE METABOLIC PANEL Routine 04/16/2025 11:46 AM EDT CBC WITH AUTO DIFFERENTIAL Routine 04/16/2025 11:46 AM EDT COVID-19 ID NOW (AGUILAR) Routine 04/16/2025 10:48 AM EDT INFLUENZA A B2 ID NOW (AGUILAR) Routine 04/16/2025 10:48 AM EDT STREP A NUCLEIC ACID Routine 04/16/2025 10:48 AM EDT CULTURE, URINE, ROUTINE Routine 04/16/20 12:00 AM EDT BI MAMMOGRAM DIAGNOSTIC TOMOSYNTHESIS BILATERAL Routine 03/06/2025 12:00 PM EDT PERIODIC ORAL EVALUATION - ESTABLISHED PATIENT Routine 02/21/2025 11:30 AM EDT POCT GLYCATED HEMOGLOBIN, TOTAL Routine [...] Recently Relevant to Health Maintenance Results * VITAMIN D 25-OH (D2 AND D3) (05/20/2025 9:50 AM EDT) Vitamin D, 25-OH, D2 <4 ng/mL [facility] Comment:This test was develo ped and its analytical performancecharacteristics have been determined by [employer] [place], [place]. It hasnot been cleared or approved by the U.S. Food and DrugAdministration. This assay has been validated pursuantto the CLIA regulations and is used for clinicalpurposes.THIS TEST WAS PERFORMED AT:[facility] [id number] [place] [id number] GARZA MD,PHD Vitamin D, 25-OH, D3 33 ng/mL [facility] Comment:This test was develo ped and its analytical performancecharacteristics have been determined by [employer] [place], [place]. It hasnot been cleared or approved by the U.S. Food and DrugAdministration. This assay has been validated pursuantto the CLIA regulations and is used for clinicalpurposes. Vitamin D, 25-OH, Total 33 30 - 100 ng/mL [facility] Comment:Vitamin D, 25-Hydrox y reports concentrations of twocommon forms, 25-OHD2 and 25-OHD3. 25-OHD3 indicatesboth endogenous production and supplementation.25-OHD2 is an indicator of exogenous sources such asdiet or supplementation. Therapy is based onmeasurement of Total 25-OHD, with levels <20 ng/mLindicative of Vitamin D deficiency, while levelsbetween 20 ng/mL and 30 ng/mL suggest insufficiency.Optimal levels are > or = 30 ng/mL.For additional information, please refer [email or web address](This link is being provided for informational/educational purposes only.) 05/20/2025 9:50 AM EDT 05/20/2025 9:50 AM EDT Generic External Data Provider LAB BLOOD ORDERAB LES Final Result Performing Organization Address City/[facility]/ZIP Co de Phone Number [facility] [address] [place] [phone] * Vitamin B12 (Cobalamin) and Folate Panel, Serum (05/20/2025 9:50 AM EDT) Vitamin B12 361 200 - 900 pg/mL [facility] Comment:NORMAL 200-900 PG/M L INDETERMINATE 160-199 PG/ML DEFICIENT < 160 PG/ML Folate 11.3 > or = 4.0 ng/mL [facility] Comment:Reference Values:> o r = 4.0 ng/mL< 4.0 ng/mL suggests folate deficiency Methotrexate, aminopterin and folinic acid(leucovorin) are chemotherapeutic agents whose molecularstructures are similar to folate; therefore, the Architectfolate assay cannot be used for patients using these drugs. 05/20/2025 9:50 AM EDT 05/20/2025 9:50 AM EDT [employer] External Data Provider LAB BLOOD ORDERAB LES Final Result Performing Organization Address [facility]/ZIP Co de Phone Number [facility] [address] [place] [address] [phone] * TSH with Reflex to Free T4 (05/20/2025 9:50 AM EDT) TSH reflex Free T4 1.30 0.32 - 4.0 uIU/mL [facility] 05/20/2025 9:50 AM EDT 05/20/2025 9:50 AM EDT Generic External Data Provider LAB BLOOD ORDERAB LES Final Result Performing Organization Address [facility] de Phone Number [facility] [address] [place] [phone] * Tissue Transglutaminase (tTG) Antibody (IgG) (05/20/2025 9:50 AM EDT) Tissue Transglutaminase Antibody IgG <1.0 U/mL [facility] Comment:Value Interpretation ----- <15.0 Antibody not detected> or = 15.0 Antibody detectedTHIS TEST WAS PERFORMED AT:[facility] [place] [phone] KO MD 05/20/2025 9:50 AM EDT 05/20/2025 9:50 AM EDT Generic External Data Provider LAB BLOOD ORDERAB LES Final Result Performing Organization Address [facility] de Phone Number [facility] [address] [place] [phone] * XR Shoulder 2+ Views Bilateral (04/16/2025 1:34 PM EDT) Anatomical Region Laterality Modality Upper Extremities, Shoulder Bilateral Radi ographic Imaging 04/16/2025 1:34 PM EDT Narrative 04/16/2025 2:43 PM EDT [address] [address] XRay Report Signed Patient: Lizet Cash MR# : [id number] : 1975 Acct:[id number] Age/Sex: 49 / F ADM Date: 04/16/25 Loc: HO.ED Attending Dr: Ordering Physician: Ernestina Mackey Date of Service: 04/16/25 Procedure(s): XR Shoulder Mirza min 2V Accession Number(s): [id number] cc: Ingrid Wolfe MD; Ernestina Mackey Exam: [...] 04/16/25 1440 DD/ 1334 TD/TT: 04/16/25 1433 [place] Carpenter: Procedure Note Donotuseinterpreter, Image - 04/16/[address] [address] XRay Report Signed Patient: Augusto Cash# : [id number] : 1975Acct:[id number] Age/Sex: 49 / FADM Date: 04/16/25 Loc: HO.ED Attending Dr: Ordering Physician: Ernestina Mackey Date of Service: 04/16/25 Procedure(s): XR Shoulder Mirza min 2V Accession Number(s): [id number] cc: Ingrid Wolfe MD; Ernestina Mackey Exam: [...] 04/16/25 1440 DD/ 1334 TD/TT: 04/16/25 1433 Bul[place]ark Carpenter: [facility] External Provider IMG XR PROCEDURES Final Result * (ABNORMAL) Urinalysis, Complete, with Reflex to Culture (04/16/2025 11:54 AM EDT) Color Urine Yellow [facility] Appearance Urine Clear [facility] PH 5.5 5.0 - 9.0 [facility] Glucose Urine UA >=1000(A) Negative mg/dL [facility] Urine Blood Negative Negative [facility] Specific [place] - Urine >=1.030(H) 1.005 - 1.025 [facility] Urine Protein Negative Neg-Trace mg/dL [facility] Urine Ketones Trace Negative mg/dL [facility] [facility] Nitrite Urine Negative Negative [facility] Leukocyte Esterase Urine Negative Negative [facility] RBC Urine 0-2 0 - 2 /HPF [facility] Urine WBC 6-10(A) 0 - 5 /HPF [facility] Urine Squamous Epithelial Cell 0-2 0 - 2 /HPF [facility] Urine Bacteria None Seen None Seen [facility] Hyaline Casts, Urine 3-5 0 - 2 /LPF [facility] 04/16/2025 11:5 4 AM EDT 04/16/2025 12:13 PM EDT Narrative [facility] - 04/16/2025 12:23 PM EDT [id number], Clean Catch Generic External Data Provider LAB URINE ORDERAB LES Final Result Performing Organization Address [facility] de Phone Number [facility] [address] [place] [phone] * High Sensitivity Troponin I (04/16/2025 11:46 AM EDT) [facility] TROPONIN I HIGH SENSITIVITY <2.7 <3.5 - 17.0 ng/L [facility] Comment:The Aguilar high sens itivity Troponin-I results should beused in conjunction with other diagnostic information suchas ECG, clinical observations and information, and patientsymptoms to aid in the diagnosis of MS. 04/16/2025 11:4 6 AM EDT 04/16/2025 11:50 AM EDT Generic External Data Provider LAB BLOOD ORDERAB LES Final Result Performing Organization Address [facility] de Phone Number [facility] [address] [place] [address] [phone] * CBC auto differential (04/16/2025 11:46 AM EDT) [facility] White Blood Count 6.2 4.8 - 10.8 X10*3/uL [facility] Red Blood Count 4.71 4.20 - 5.50 X10*6/uL [facility] Hemoglobin 13.8 12.0 - 16.0 g/dl [facility] Hematocrit 40.9 37.0 - 47.0 % [facility] Mean Corpuscular Volume 86.8 80.0 - 98.0 fL [facility] Mean Corpuscular Hemoglobin 29.3 27.0 - 33.0 pg [facility] Mean Corpuscular HGB Conc 33.7 31.0 - 35.0 g/dl [facility] Red Cell Distribution Width 14.4 11.0 - 16.0 % [facility] Platelet Count 288 160 - 400 X10*3/uL [facility] Mean Platelet Volume 10.2 9.4 - 12.3 fL [facility] Neutrophils Percent Auto 55.0 45 - 73 % [facility] Imm Gran Pct Auto 0.2 0.0 - 0.4 % [facility] Lymphocytes Percent Auto 34.7 20 - 40 % [facility] Monocytes Percent Auto 6.5 2 - 11 % [facility] Eosinophils Percent Auto 2.8 0 - 4 % [facility] Basophils Percent Auto 0.8 0 - 2 % [facility] NRBC Pct Auto 0.0 0.0 - 0.2 /100WBC [facility] Neutrophils Absolute Auto 3.4 2.0 - 8.3 x10*3/uL [facility] Imm Gran Abs Auto 0.01 0.00 - 0.03 X10*3/uL [facility] Lymphocytes Absolute Auto 2.1 1.2 - 4.9 X10*3/uL [facility] Monocytes Absolute Auto 0.4 0.1 - 1.2 X10*3/uL [facility] Eosinophils Absolute Auto 0.2 0.0 - 0.4 X10*3/uL [facility] Basophils Absolute Auto 0.1 0.0 - 0.2 X10*3/uL [facility] NRBC Abs Auto 0.000 0.0 - 0.012 X10*3/uL [facility] 04/16/2025 11:4 6 AM EDT 04/16/2025 11:50 AM EDT us Generic External Data Provider LAB BLOOD ORDERAB LES Final Result [facility] [address], [place] [phone] * hCG, Total, Quantitative (04/16/2025 11:46 AM EDT) HCG Quantitative <2 mIU/mL [facility] Comment:Weeks post LMP Appro ximate hCG(Last Menstrual Period) Range (mIU/ml)3 - 4 weeks 9 - 1304 - 5 weeks 75 - 2,6005 - 6 weeks 850 - 20,8006 - 7 weeks 4000 - 100,2007 - 12 weeks 11,500 - 289,87919 - 16 weeks 18,300 - 137,36068 - 29 weeks (2nd trimester) 1,400 - 53,41444 - 41 weeks (3rd trimester) 940 - [...] ORDERAB LES Final Result Performing Organization Address [facility] Co de Phone Number [facility] [address] [place] [address] [phone] * Magnesium (04/16/2025 11:46 AM EDT) Magnesium 2.1 1.6 - 2.6 mg/dL [facility] 04/16/2025 11:4 6 AM EDT 04/16/2025 11:50 AM EDT Generic External Data Provider LAB BLOOD ORDERAB LES Final Result Performing Organization Address City/[facility] Co de Phone Number [facility] [address] [place] [address] [phone] * (ABNORMAL) Creatine Kinase, Total (04/16/2025 11:46 AM EDT) Creatine Kinase Total 393(H) 26 - 140 U/L [facility] 04/16/2025 11:4 6 AM EDT 04/16/2025 11:50 AM EDT us Generic External Data Provider LAB BLOOD ORDERAB LES Final Result [facility] [address] [place] [address] [phone] * (ABNORMAL) Comprehensive Metabolic Panel (04/16/2025 11:46 AM EDT) Sodium 138 135 - 145 mmol/L [facility] Potassium 3.7 3.3 - 5.1 mmol/L [facility] Chloride 108 96 - 108 mmol/L [facility] Carbon Dioxide 22 22 - 29 mmol/L [facility] Anion Gap 12 12 - 20 [facility] Urea Nitrogen (BUN) 13 9 - 16 mg/dL [facility] Creatinine, Serum 0.55 0.5 - 1.4 mg/dL [facility] Creatinine Clr Calc Pharmacy 138.6 [facility] Comment:Provided height and weight: 167.64 cm,88.451 kg.eGFR (calculated from the MDRD study equation) and eCrCl(calculated from the Cockcroft-Gault equation) are based ondifferent parameters and may not yield comparable results.If eCrCl result is absurd, please check patient'sheight/weight. Estimated Glomerular Filt Rate >60 [facility] Comment:Chronic Kidney Disea se: Estimated GFR < 60 mL/min/1.64r9Icqwth Kidney Disease: Estimated GFR < 15 mL/min/1.73m2 Glucose 152(H) 60 - 115 mg/dL [facility] Calcium 9.2 8.4 - 10.2 mg/dL [facility] Bilirubin, Total 0.2 0.0 - 1.0 mg/dL [facility] Aspartate Amino Transferase 33(H) 5 - 31 U/L [facility] Alanine Aminotransferase 51(H) 0 - 31 U/L [facility] Total Protein 7.2 6.5 - 8.0 g/dL [facility] Albumin Level 4.6 3.5 - 5.0 g/dL [facility] Alkaline Phosphatase 84 39 - 117 U/L [facility] 04/16/2025 11:4 6 AM EDT 04/16/2025 11:50 AM EDT Generic External Data Provider LAB BLOOD ORDERAB LES Final Result Performing Organization Address [facility] Co de Phone Number [facility] [address] [place] [address] [phone] * Influenza A B2 ID NOW (Aguilar) (04/16/2025 10:48 AM EDT) IDNOW SERIAL# [id number] [facility] Influenza A Negative Negative [facility] Influenza B2 Negative Negative [facility] Influenza A B2 Note See Note [facility] Comment:The Aguilar ID NOW In [...] GENERAL ORDERABLES Final Result Performing Organization Address [facility] de Phone Number [facility] [address] [place] [address] [phone] * Strep A Nucleic Acid (04/16/2025 10:48 AM EDT) IDNOW SERIAL# [id number] [facility] Strep A Nucleic Acid Negative Negative [facility] Comment:All test results mus t [...] GENERAL ORDERABLES Final Result Performing Organization Address City/[facility]/ZIP Co de Phone Number [facility] [address] [place] [phone] * COVID-19 ID NOW (AGUILAR) (04/16/2025 10:48 AM EDT) IDNOW SERIAL# [id number] [facility] COVID-19 TEST Negative Negative [facility] COVID-19 NOTE See Note [facility] Comment: Results are for the identification of SARS-CoV2 RNA. TheSARS-CoV2 RNA is generally detectable in respiratory samplesduring the acute phase of infection. Positive results areindicative of the presence of SARS-CoV-2 RNA; clinicalcorrelation with patient history and other diagnosticinformation is necessary to determine patient infectionstatus. Positive results do not rule out bacterial infectionor co- infection with other viruses.Testing facilities within the [facility] and [facility] are required to report all [...] GNOSTICS ORDERABLES Final Result Performing Organization Address City/[facility]/ZIP Co de Phone Number [facility] [address] [place] [phone] * Culture, Urine, Routine (04/16/2025 12:00 AM EDT) Urine Urine specimen obtained by clean catch procedure / Unknown 04/16/2025 04/16/2025 Comment:UACC Narrative [facility] - 04/17/2025 11:59 AM EDT Urine Culture Report Result Urine Culture 10,000 to 50,000 cfu/ml Urine Culture Mixed bacterial kerri characteristic of Urine Culture urogenital contamination. Specimen Source: Urine clean catch us Generic External Data Provider LAB MICROBIOLOGY - GENERAL ORDERABLES Final Result [facility] [address] [place] [address] [phone] * BI Mammogram Diagnostic Tomosynthesis Bilateral (03/06/2025 12:00 PM EDT) Anatomical Region Laterality Modality Breast Bilateral Mammography 03/06/2025 12:0 0 PM EDT Narrative 03/06/2025 1:55 PM EDT [address] [place] [address] Mammography Report Signed Patient: Lizet Cash MR# : [id number] : 1975 Acct:[id number] Age/Sex: 49 / F ADM Date: 03/06/25 Loc: MAMMO Attending Dr: Ingrid Wolfe MD Ordering Physician: Ingrid Wolfe MD Results: 3.12MProbably Benign Finding - 12 month F/U Suggested Date of Service: 03/06/25 Follow Up: 12 month diagnos tic follow up Procedure(s): MM tomosynthesis diagnostic BI Accession Number(s): [id number] cc: Ingrid Wolfe MD EXAMINATION: MM DIAGNOSTIC [...] 03/06/25 1352 DD/ 1200 TD/TT: 03/06/25 1250 [place] Carpenter: Procedure Note Donotuseinterpreter, Image - 03/06/2025 [facility] [address] [place] [address] Mammography Report Signed Patient: Augusto Cash# : [id number] : 1975Acct:[id number] Age/Sex: 49 / FADM Date: 03/06/25 Loc: HO.MAMMO Attending Dr: Ingrid Wolfe MD Ordering Physician: Ingrid Wolfe MD Results: 3.12MProbably Benign Finding - 12 month F/U Suggested Date of Service: 03/06/25Follow Up: 12 month diagnos tic follow up Procedure(s): MM tomosynthesis diagnostic BI Accession Number(s): [id number] cc: Ingrid Wolfe MD EXAMINATION: MM DIAGNOSTIC [...] 03/06/25 1352 DD/ 1200 TD/TT: 03/06/25 1250 [place] Carpenter: Ingrid Wolfe MD IMG BI PROCEDURES Final Result * (ABNORMAL) POCT HGB A1C (02/21/2025 10:41 AM EDT) Hemoglobin A1C 8.2(A) 4.0 - 5.7 % QC Media Lot # [id number] Lot# Expiration Date ,973,466 Blood 02/21/2025 10:4 1 AM EDT Ingrid Wolfe MD POINT OF CARE TEST ENTER /EDIT ORDERABLES Final Result * (ABNORMAL) Lipid Panel with Reflex to Direct LDL (11/29/2024 8:21 AM EDT) Triglycerides 178(H) <150 mg/dL [facility] Comment:Desirable Triglyceri de: less than 150 mg/dLBorderline High Triglyceride 150-199 mg/dLHigh Triglyceride: 200-499 mg/dLVery High Triglyceride: greater than or equal to 5OO mg/dL Cholesterol 144 <200 mg/dL [facility] Comment:Desirable Cholestero l: less than 200 mg/dLBorderline High Cholesterol: 200-239 mg/dLHigh Cholesterol: greater than 239 mg/dL LDL Cholesterol Calculated 72 <100 mg/dL [facility] Comment:Desirable LDL: less than 100 mg/dLNear Optimal/Above Optimal LDL: 110- 129 mg/dLBorderline High LDL: 130-159 mg/dLHigh LDL: 160-189 mg/dLVery High LDL: greater than or equal to 190 mg/dL HDL Cholesterol 37(L) >40 mg/dL [facility] Comment:Desirable HDL: great er than 40 mg/dL Note: This HDL assay may give artificially low results in patients with liver disease. Blood 11/29/2024 8:21 AM EDT 11/29/2024 11:37 AM EDT us Ingrid Wolfe MD LAB BLOOD ORDERABLES Fin al Result [facility] [address] [place] [address] [phone] * Hepatitis Panel, General (10/04/2024 8:16 AM EST) Hepatitis A IgM Nonreactive Nonreactive [facility] Comment:IgM antibodies to GUILLORY V not detected; does not exclude earlyacute or recovered HAV infection. ~Hepatitis B Surface Antibody REACTIVE Nonreactive [facility] Comment:REACTIVE: > 11.99 mI U/mL Hepatitis B Core Antibody Nonreactive Nonreactive [facility] Hepatitis C Antibody Nonreactive Nonreactive [facility] Comment:Antibodies to HCV no t detected; does not exclude early acuteHCV infection. Hepatitis B Surface Ag Negative Negative [facility] Blood 10/04/2024 8:16 AM EST 10/04/2024 11:15 AM EST Ingrid Wolfe MD LAB BLOOD ORDERABLES Fin al Result Performing Organization Address City/[facility]/ZIP Co de Phone Number [facility] [address] [place] [phone] * HIV-1/2 Antigen and Antibodies, Fourth Generation, with Reflexes (10/04/2024 8:16 AM EST) HIV AB/AG Nonreactive Nonreactive [facility] Comment:HIV-1 p24 Ag and/or HIV-1/HIV-2 Ab not detected.A test result that is nonreactive does not exclude thepossibility of exposure to or infection with HIV-1 and/orHIV-2. Nonreactive results in this assay for individualswith prior exposure to HIV-1 and/or HIV-2 may be due toantigen and antibody levels that are below the limit ofdetection of this assay.The [employer] HIV Ag/Ab Combo assay result andsupplemental assay results should be interpreted inconjunction with the patient's clinical presentation,history and other laboratory results. If the results areinconsistent with clinical evidence, additional testing issuggested to confirm the result. Blood Venous blood specimen / Unknown 10/04/2024 8:16 AM EST 10/04/2024 11:15 AM EST us Ingrid Wolfe MD LAB BLOOD ORDERABLES Fin al Result Performing Organization Address City/[facility]/ZIP Co de Phone Number [facility] [address] [place] [phone] * Albumin, Random Urine W/Creatinine (08/31/2024 2:09 PM EST) Creatinine, Urine 31.14 mg/dL [facility] Microalbumin Urine <5.0 mg/L [facility] Microalbum Creatinine Ratio Ur TNP <30 ug/mg cr [facility] Comment:Unable to calculate albumin/creatinine ratio due to lowmicroalbumin or creatinine result. Urine (Urine, Random) 08/31/2024 2:09 PM EST 08/31/2024 4:00 PM EST us Ingrid Wolfe MD LAB URINE ORDERABLES Fin al Result [facility] [address] [place] [address] [phone] * Pap Smear (12/14/2023 11:23 AM EDT) Swab Cervix uteri structure / Unknown 12/14/2023 11:23 AM EDT 12/14/2023 2:20 PM EDT Narrative [facility] - 01/02/2024 11:54 AM EDT ----- ------- Name: Lizet Cash Age/Sex: 48/F : 1975 Unit#: [id number] Attend Dr: Ingrid Wolfe MD Re12/14/23 Status: DEP REF Location: [facility] Disch: ----- ------- SPEC : [id number] RECD: 12/14/23 STATUS: LATISHA VARELA NUM: [id number] JUANCARLOS: 12/14/23-3 [facility] DR: Ingrid Wolfe MD ENTERED: 12/14/232274 SP TYPE: Pap Smr OTHR DR: ORDERED: [...] CYTOLOGY ORDERABLES Final Result Performing Organization Address [facility]/ZIP Co de Phone Number [facility] [address] [place] [address] [phone] * (ABNORMAL) Hm Colonoscopy (04/27/2023) Colonoscopy Abnormal(A ) Normal [facility] Ingrid Wolfe MD HEALTH MAINTENANCE Final Result Performing Organization Address [facility] Co de Phone Number [facility] [address] [place] [address] [phone] * Image-Guided Pap with Age-Based Screening??with CT/NG,??Trichomonas (11/29/2022 10:52 AM EDT) Comment [employer] Comment: This order for age-based cervical cancer and STI screening follows ACOG guidelines(PB 168, 140, MEZ168). See individual assays for performing site location. Clinical Information: HISTORY OF HYST DUE YUSUF [employer] LMP: NONE GIVEN [employer] Prev. PAP: YES [employer] Prev. BX: NONE GIVEN [employer] SOURCE: None given [employer] Statement Of Adequacy: SATISFACTORY FOR EVALUATION [employer] Interpretation/Re sult: Negative for intraepithelial lesion or malignancy. [employer] COMMENT: This Pap test has been evaluated with computer assisted technology. [employer] Journeyman Carpenter: [employer] Comment: KF, CT(ASCP) CT screening location: [place] [address] Review Journeyman Carpenter: [employer] Comment: BLC,CT(ASCP) CT screening location: [place] [address] (Always Message) Que st Before the Call Comment: EXPLANATORY NOTE: The Pap is a [...] HPV nRNA E6/E7 Not Detected Not Detected [employer] Comment: Methodology: Low Vision Therapist-Mediated Amplification This assay detects E6/E7 viral messenger RNA (mRNA) from 14 high-risk HPV types (16,18,31,33,35,39,45,51,52,56,58,59,66,68). Cervical sources are required for HPV testing. If a vaginal source from a patient who has had a total hysterectomy with removal of cervix was submitted, please contact the testing laboratory for alternative testing options. For additional information, please refer to http://[email or web address]/faq/VST945k9 (This link if provided for information/ educational purposes only.) Chlamydia trachomatis RNA, TMA, Urogenital NOT DETECTED NOT DETECTED [employer] [place] [employer] Neisseria gonorrhoeae RNA, TMA, Urogenital NOT DETECTED NOT DETECTED [employer] [place] [employer] Comment [employer] [place] [employer] Comment: The analytical performance characteristics of this assay, when used to test SurePath(TM) specimens have been determined by [employer]. The modifications have not been cleared or approved by the FDA. This assay has been validated pursuant to the CLIA regulations and is used for clinical purposes. For additional information, please refer to https://[employer]/faq/MYS986 (This link is being provided for information/ educational purposes only.) Trichomonas vaginalis, QL, TMA, PAP Vial NOT DETECTED NOT DETECTED [employer] Comment: The analytical performance characteristics of this assay have been determined by [employer]. The modifications have not been cleared or approved by the FDA. This assay has been validated pursuant to the CLIA regulations and is used for clinical purposes. For additional information, please refer to [email or web address]/ faq/Trichomonastma (This link is being provided for information/ educational purposes only.) Cytology specimen container (physical object) 11/29/2022 10:52 AM EDT 11/30/2022 12:36 AM EDT us Leeann Wood [facility] CYTOLOGY ORDERABLES F inal Result [facility] [address], [place] [phone] [employer] [place] [employer] [address] [place] [phone] from Last 3 Months or Most Recently Relevant to Health Maintenance Additional Health Concerns Active Problems Noted Date [...] 07/11/2025 Patient has chronic kidney disease 07/11/2025 Insurance [facility] C3 HSN FULL DENTAL-[facility] MEDICAID STAND ADULT [address] [place] [address] Care Teams Tmr Teacher Relationship Specialty Start Date End Date Ingrid Wolfe MD [address] [place] [address] PCP - General Internal Medicine 09/10/22 Nick Castellanos FNP [address] [place] [address] Nurse Practitioner Family Medicine 07/04/23 Apolonia Mars health care aide [employer] Lead Consultant 11/16/23
--- OUTSIDE RECORDS SUMMARY | 2025-07-12 10:13 | XMS_ITS | Encounter Summary ---
Author Organization [employer] Address [address] [facility] 7t [place] [address] Care Team Providers Care Brain Surgeon Name Role Phone Cheryl Fitzpatrick MD Primary Care Provider + Nick Castellanos Unavailable Unavailable Reason for Visit * Reason Onset Date Comments Med Refill 07/09/2025 Encounter Details Date Type Department Care Team (Late st Contact Info) Description 07/09/2025 Telephone [facility] MEDICINE [address] [place], [place] [phone] Cheryl Fitzpatrick MD [address] [place], [place] [phone] Med Refill Social History Tobacco Use Types Packs/Day Years [...] with others, in a hotel, in [place], living outside on the street, on a [...] Telephone Encounter - Cheryl Fitzpatrick MD - 07/09/2025 9:37 AM EST Regarding clonazepam prescription, patient has been referred to psychiatry in September and seen by a provider at [facility]. As per the last note, patient was discharged to PCP for taper down off of medication that she could not taper (see encounter on 06/18/2025)? She mentioned a referral to inpatient treatment for 4 days, 10-day follow-up on this. It is unclear as of why the patient is referred back to me if there is still pending treatment to complete and patient does not seem to be otherwise stable from her depression and anxiety. Please reach out to behavioral health and see was the plan in this situation, patient still needs psychiatry to continue controlled substance prescription as long asshe needs them in such a high dose, should we consider referral to a new provider that can adjust patient's medication and lower benzo dose to decrease risk of falls and long-term side effects including memory impairment and increased anxiety? * Telephone Encounter - Richard Sagastume - 07/09/2025 8:26 AM EST TC from pt requesting medication refill. Medications needing refill : clonazePAM (KlonoPIN) 2 MG tablet To be sent to: [facility] - [place], [place] - [address] [place] [address] Pt states finished with lab head , and was advised pcp will prescribed med . documented in this encounter Plan of Treatment Upcoming Encounters Date Type Department Care Team (Late st Contact Info) Description 08/27/2025 10:30 AM EST Office Visit [facility] MEDICINE [address] [place] [address] Cheryl Fitzpatrick MD [address] [place] [address] documented as of this encounter Goals Goal Patient Goal Type Associated Problems Recent Progress Patient-Stated? Author Blood Pressure < 140/90 Blood Pressure 110/70(2024 9:50 AM EDT) No Kenzie Antunez, Merari Hemoglobin A1c < 7 Result Component 8.2( 10:41 AM EDT) No Kenzie Antunez PharmD Help patients manage their type 2 diabetes Care Plan Help patients manage their type 2 diabetes No Richard Sosa Weekly blood pressure task Care Plan Weekly blood pressure task No Richard Sosa Help patients manage their type 2 diabetes Care Plan Help patients manage their type 2 diabetes No Richard Sosa Patient has diabetic eye disease Care Plan Patient has diabetic eye disease No Richard Sosa Help patients manage their type 2 diabetes Care Plan Help patients manage their type 2 diabetes No ZullyuiRichard dumont Patient has chronic kidney disease Care Plan Patient has chronic kidney disease No Richard Sosa Weekly blood pressure task Care Plan Weekly blood pressure task No Richard Sosa Weekly blood pressure task Care Plan Weekly blood pressure task No Richard Sosa Patient has diabetic eye disease Care Plan Patient has diabetic eye disease No Richard Sosa Patient has diabetic eye disease Care Plan Patient has diabetic eye disease No ZullyuiRichard dumont Patient has chronic kidney disease Care Plan Patient has chronic kidney disease No ZullyuiRichard dumont Patient has chronic kidney disease Care Plan Patient has chronic kidney disease No Richard Sosa Weekly blood pressure task Care Plan Weekly [...] Plan Weekly blood pressure task No Court Codrova RN Weekly blood pressure task Care Plan [...] Plan Patient has chronic kidney disease No Tasha, Court, RN Patient has chronic kidney disease Care Plan Patient has chronic kidney disease Court Tran RN documented as of this encounter Visit Diagnoses Not on filedocumented in this encounter Additional Health Concerns Active [...] 07/09/2025 Patient has chronic kidney disease 07/09/2025 Assessment Noted Time PHQ-9 Depression Total Score: 12 025 10:40 AM EDT documented as of this encounter Care Teams Brain Surgeon Relationship Specialty Start Date End Date Cheryl Fitzpatrick MD [address] [place] [address] PCP - General Internal Medicine 09/10/22 Nick Castellanos FNP [address] [place] [address] Nurse Practitioner Family Medicine 07/04/23 Apolonia Mars physician assistant primary care Carver HandLion Trainer 11/16/23 documented as of this encounter
--- OUTSIDE RECORDS SUMMARY | 2025-07-12 10:13 | XMS_ITS | Encounter Summary ---
Author Organization [employer] Address 75 [facility] 7t [place] [address] Care Team Providers Care Competitive Intelligence Analyst Name Role Phone Cheryl Fitzpatrick MD Primary Care Provider + Nick Castellanos Unavailable Unavailable Reason for Visit * Reason Comments Med Refill Encounter Details Date Type Department Care Team (Late st Contact Info) Description 11/10/2023 Refill [facility] MEDICINE [address] [place] [address] Nick Castellanos FNP Type 2 diabetes mellitus with hyperglycemia, with long-term current use of insulin ([facility]) Social History Tobacco Use Types [...] Description 08/27/2025 10:30 AM EST Office Visit [facility] MEDICINE [address] [place] [phone] Cheryl Fitzpatrick MD [address] [place] [address] documented as of this encounter Goals Goal [...] documented as of this encounter Care Teams Competitive Intelligence Analyst Relationship Specialty Start Date End Date Cheryl Fitzpatrick MD [address] [place] [address] PCP - General Internal Medicine 09/10/22 Nick Castellanos FNP [address] [place] [address] Nurse Practitioner Family Medicine 07/04/23 [address] Shay Electrician Control Equipment 11/11/23 02/10/24 Apolonia Mars aged or disabled care worker Electrician Control EquipmentDial Polisher 11/16/23 documented as of this encounter
--- OUTSIDE RECORDS SUMMARY | 2025-07-12 10:13 | XMS_ITS | Encounter Summary ---
Author Organization [employer] Address 75 [facility] 7t [place] [address] Care Team Providers Care Hedis Manager Name Role Phone Cheryl Fitzpatrick MD Primary Care Provider + Nick Castellanos Unavailable Unavailable Reason for Visit * Reason Onset Date Comments cx scheduled appt 02/08/2025 Encounter Details Date Type Department Care Team (Late st Contact Info) Description 02/08/2025 Telephone [facility]AL [address] [place] [address] Hema Hill DDS [address] [place], [place] [phone] cx scheduled appt Social History Tobacco Use [...] adjustment due to pain. However, assistant front office manager C called that they were in [...] pin worsens and persists. Provided phone number [phone] documented in this encounter Plan of Treatment Upcoming Encounters Date Type Department Care Team (Late st Contact Info) Description 08/27/2025 10:30 AM EST Office Visit [facility] MEDICINE [address] [place] [address] Cheryl Fitzpatrick MD [address] [place] [address] documented as of this encounter Goals Goal [...] documented as of this encounter Care Teams Hedis Manager Relationship Specialty Start Date End Date Cheryl Fitzpatrick MD [address] [place] [address] PCP - General Internal Medicine 09/10/22 Nick Castellanos FNP [address] [place] [address] Nurse Practitioner Family Medicine 07/04/23 Apolonia Mars youth care professional Meter Record ClerkDirector Airport Operations 11/16/23 documented as of this encounter
--- OUTSIDE RECORDS SUMMARY | 2025-07-12 10:13 | XMS_ITS | Encounter Summary ---
Author Organization [employer] Address [address] [facility] 7t [place] [address] Care Team Providers Care Developer Analyst Name Role Phone Cheryl Fitzpatrick MD Primary Care Provider + Nick Castellanos Unavailable Unavailable Reason for Visit * Reason Onset Date Comments PT1 11/19/2024 Encounter Details Date Type Department Care Team (Late st Contact Info) Description 11/19/2024 Telephone [facility] MEDICINE [address] [place], [place] [phone] Cheryl Fitzpatrick MD [address] [place], [place] [phone] PT1 Social History Tobacco Use Types Packs/Day [...] Yes Provider name or facility name: [address] [place] [address]. [facility] Escort needed: Y/N: No Do you have a wheelchair: Y/N: No Cane If yes- Manual or electric: N/A Visits: (5x monthly) 2 of 4 Patient calling requesting PT1 Home Address verified: Y/N: Yes Provider name or facility name: [address] [place] [address] - [facility] Escort needed: Y/N: No Do you have a wheelchair: Y/N: No Cane If yes- Manual or electric: N/A Visits: (2x monthly) 3 of 4 Patient calling requesting PT1 Home Address verified: Y/N: Yes Provider name or facility name: [address] [place] [address] - [facility] Escort needed: Y/N: No Do you have a wheelchair: Y/N: No Cane If yes- Manual or electric: N/A Visits: (2x monthly) 4 of 4 Patient calling requesting PT1 Home Address verified: Y/N: Yes Provider name or facility name: [address] [facility] [place] [address] [facility] Escort needed: Y/N: No Do you have a wheelchair: Y/N: No Cane If yes- Manual or electric: N/A Visits: (7x monthly) documented in this encounter Plan of Treatment Upcoming Encounters Date Type Department Care Team (Late st Contact Info) Description 08/27/2025 10:30 AM EST Office Visit [facility] MEDICINE [address] [place] [address] Cheryl Fitzpatrick MD [address] [place] [address] documented as of this encounter Goals Goal Patient Goal Type Associated Problems Recent Progress Patient-Stated? Author Blood Pressure < 140/90 Blood Pressure 110/70(2024 9:50 AM EDT) No Yongs-Kenzie Malik, PharmD Hemoglobin A1c < 7 Result Component 8.2( 10:41 AM EDT) No Yongs-Kenzie Malik, PharmD documented as of this encounter Visit Diagnoses Not on filedocumented in this encounter Additional Health Concerns Assessment Noted Time PHQ-9 Depression Total Score: 10 2 024 10:01 AM EDT documented as of this encounter Care Teams Developer Analyst Relationship Specialty Start Date End Date Cheryl Fitzpatrick MD [address] [place] [address] PCP - General Internal Medicine 09/10/22 Nick Castellanos FNP [address] [place] [address] Nurse Practitioner Family Medicine 07/04/23 Apolonia Mars menagerie caretaker Gas Check Pad MakerMetal Fence Erector 11/16/23 documented as of this encounter
--- OUTSIDE RECORDS SUMMARY | 2025-07-12 10:13 | XMS_ITS | Encounter Summary ---
Author Organization [employer] Address [address] [facility] 7t [place] [address] Care Team Providers Care Stockbroker Name Role Phone Cheryl Fitzpatrick MD Primary Care Provider + Nick Castellanos Unavailable Unavailable Reason for Visit * Reason Comments Med Refill Encounter Details Date Type Department Care Team (Late st Contact Info) Description 07/07/2025 Refill [facility] MEDICINE [address] [place], [place] [phone] Cheryl Fitzpatrick MD [address] [place] [address] Type 2 diabetes mellitus with hyperglycemia, with long-term current use of insulin (HCC) Social History Tobacco Use Types Packs/Day Years [...] 08/27/2025 10:30 AM EST Office Visit [facility] MEDICINE [address] [place] [address] Cheryl Fitzpatrick MD [address] [place] [address] documented as of this encounter Goals Goal [...] documented as of this encounter Care Teams Stockbroker Relationship Specialty Start Date End Date Cheryl Fitzpatrick MD [address] [place] [address] PCP - General Internal Medicine 09/10/22 Nick Castellanos FNP [address] [place] [address] Nurse Practitioner Family Medicine 07/04/23 Apolonia Mars healthcare consultant Manager Talent ManagementVallez Filter Operator 11/16/23 documented as of this encounter
--- OUTSIDE RECORDS SUMMARY | 2025-07-12 10:13 | XMS_ITS | Encounter Summary ---
Author Organization [employer] Address 75 [facility] 7t [place] [address] Care Team Providers Care Fruit Distributor Name Role Phone Cheryl Fitzpatrick MD Primary Care Provider + Nick Castellanos Unavailable Unavailable Reason for Visit * Reason Comments Med Refill Encounter Details Date Type Department Care Team (Late st Contact Info) Description 09/13/[address] [facility] MEDICINE [address] [place], [place] [phone] Cheryl Fitzpatrick MD 230 [place] [address] Anxiety; Migraine with aura and without status [...] Description 08/27/2025 10:30 AM EST Office Visit [facility] MEDICINE [address] [place] [address] Cheryl Fitzpatrick MD [address] [place] [address] documented as of this encounter Goals Goal [...] documented as of this encounter Care Teams Fruit Distributor Relationship Specialty Start Date End Date Cheryl Fitzpatrick MD [address] [place] [address] PCP - General Internal Medicine 09/10/22 Nick Castellanos FNP [address] [place] [address] Nurse Practitioner Family Medicine 07/04/23 Apolonia Mars rn urgent care Hospitality Services ManagerElectrical Prospecting Engineer 11/16/23 documented as of this encounter
--- OUTSIDE RECORDS SUMMARY | 2025-07-12 10:13 | XMS_ITS | Encounter Summary ---
Author Organization [employer] Address [address] [facility] 7t [place] [address] Care Team Providers Care Outbound Sales Specialist Name Role Phone Cheryl Fitzpatrick MD Primary Care Provider + Nick Castellanos Unavailable Unavailable Reason for Visit * Reason Comments Care Coordination CHW outreach for SDO H PT-1 and food needs-referral completed Encounter Details Date Type Department Care Team (Latest Contact Info) Description 07/11/2025 Patient Outreach [facility] MEDICINE [address] [place] [phone] Cheryl Fitzpatrick MD [address] [place], [place] [phone] Care Coordination (CHW outreach for SDOH PT-1 and food needs-referral completed /) Social History Tobacco Use Types Packs/Day Years [...] as of this encounter Progress Notes * Dm Harris - 07/11/2025 11:06 AM EST CHW Dm Harris, placed outbound call to patient for assistance with SDOH as a referral was received by the provider. Patient's name and were confirmed. Patient screened positive for the following SDOH food insecurities. Patient states family in on SNAP program at this time. CHW referral patient to the local list of pantries in the area for help. PT-1 requested was send out in behalf of patient for futures appt. Patient verbalizes understanding, and able to agree with plan to follow up.Patient educated on extended clinic hours on Mondays through Wednesdays, and Walk-In Urgent Care Located in [facility]. Patient provided with after-hours line for [facility], , which offer night time triage service and option to transfer to chief engineer production provider if needed. documented in this encounter Plan of Treatment Upcoming Encounters Date Type Department Care Team (Late st Contact Info) Description 08/27/2025 10:30 AM EST Office Visit [facility] MEDICINE 230 [place], [place] [phone] Cheryl Fitzpatrick MD [address] [place], [place] [phone] documented as of this encounter Goals Goal [...] Care Plan Weekly blood pressure task No Kimberly, Dm Weekly blood pressure task Care Plan Weekly blood pressure task No Kimberly, Dm Weekly blood pressure task [...] Plan Patient has chronic kidney disease No Kimberly Dm Patient has chronic kidney disease Care Plan Patient has chronic kidney disease No Kimberly Dm Patient has chronic [...] has chronic kidney disease No Leslee Olivia documented as of this encounter Visit Diagnoses [...] documented as of this encounter Care Teams Outbound Sales Specialist Relationship Specialty Start Date End Date Cheryl Fitzpatrick MD [address] [place] [address] PCP - General Internal Medicine 09/10/22 Nick Castellanos FNP [address] [place] [address] Nurse Practitioner Family Medicine 07/04/23 Apolonia Mars respiratory care faculty Range MasterBank Advisor 11/16/23 documented as of this encounter
--- OUTSIDE RECORDS SUMMARY | 2025-07-12 10:13 | XMS_ITS | Encounter Summary ---
Author Organization [employer] Address [address] [facility] 7t [place] [address] Care Team Providers Care Commercial Tire Service Technician Name Role Phone Cheryl Fitzpatrick MD Primary Care Provider + Nick Castellanos Unavailable Unavailable Encounter Details Date Type Department Care Team (Late st Contact Info) Description 09/11/2024 Telephone [facility] MEDICINE [address] [place], [place] [phone] Cheryl Fitzpatrick MD [address] [place], [place] [phone] Social History Tobacco Use Types Packs/Day Years [...] Description 08/27/2025 10:30 AM EST Office Visit [facility] MEDICINE [address] [place] [address] Cheryl Fitzpatrick MD [address] [place] [address] documented as of this encounter Goals Goal [...] documented as of this encounter Care Teams Commercial Tire Service Technician Relationship Specialty Start Date End Date Cheryl Fitzpatrick MD [address] [place] [address] PCP - General Internal Medicine 09/10/22 Nick Castellanos FNP [address] [place] [address] Nurse Practitioner Family Medicine 07/04/23 Apolonia Mars resident care supervisor PlanisherTelevision Production Assistant 11/16/23 documented as of this encounter
--- OUTSIDE RECORDS SUMMARY | 2025-07-12 10:13 | XMS_ITS | Encounter Summary ---
Author Organization [employer] Address [address] [facility] 7t [place] [address] Care Team Providers Care Multimedia Designer Name Role Phone Cheryl Fitzpatrick MD Primary Care Provider + Nick Castellanos Unavailable Unavailable Reason for Visit * Reason Onset Date Comments pt1 06/19/2025 Encounter Details Date Type Department Care Team (Late st Contact Info) Description 06/19/2025 Telephone [facility] MEDICINE [address] [place], [place] [phone] Cheryl Fitzpatrick MD [address] [place], [place] [phone] pt1 Social History Tobacco Use Types Packs/Day Years [...] encounter Miscellaneous Notes * Telephone Encounter - Richard Sagastume - 06/19/2025 10:25 AM EDT Patient calling requesting PT1 Home Address verified: Y/N: Yes Provider name or facility name: [facility] [address] [place] [address] Escort needed: Y/N: No Do you have a wheelchair: Y/N: No If yes- Manual or electric: Visits: 5x Patient calling requesting PT1 Home Address verified: Y/N: Yes Provider name or facility name: [facility] [address] [facility] [address] Escort needed: No Do you have a wheelchair: Y/N: No If yes- Manual or electric: Visits: 6x Patient calling requesting PT1 Home Address verified: Y/N: Yes Provider name or facility name: [address] [place] [address] Escort needed: Y/N: No Do you have a wheelchair: Y/N: No If yes- Manual or electric: Visits: 3x documented in this encounter Plan of Treatment Upcoming Encounters Date Type Department Care Team (Late st Contact Info) Description 08/27/2025 10:30 AM EST Office Visit [facility] MEDICINE [address] [place] [address] Cheryl Fitzpatrick MD [address] [place] [address] documented as of this encounter Goals Goal [...] documented as of this encounter Care Teams Multimedia Designer Relationship Specialty Start Date End Date Cheryl Fitzpatrick MD [address] [place] [address] PCP - General Internal Medicine 09/10/22 Nick Castellanos FNP [address] [place] [address] Nurse Practitioner Family Medicine 07/04/23 Apolonia Mars home day care provider Climbing GuideProperty Worker 11/16/23 documented as of this encounter
--- OUTSIDE RECORDS SUMMARY | 2025-07-12 10:13 | XMS_ITS | Encounter Summary ---
Author Organization [employer] Address [address] [facility] 7t [place] [address] Care Team Providers Care Esl Instructional Assistant Name Role Phone Cheryl Fitzpatrick MD Primary Care Provider + Nick Castellanos Unavailable Unavailable Reason for Visit * Reason Onset Date Comments PT1 07/11/2025 Encounter Details Date Type Department Care Team (Late st Contact Info) Description 07/11/2025 Telephone [facility] MEDICINE [address] [place], [place] [phone] Cheryl Fitzpatrick MD [address] [place], [place] [phone] PT1 Social History Tobacco Use Types Packs/Day [...] encounter Miscellaneous Notes * Telephone Encounter - Selam Mars - 07/11/2025 10:24 AM EST Patient calling requesting PT1 Home Address verified: Y/N: Yes Provider name or facility name: [facility] [address], [place] [address] Escort needed: Y/N: No Do you have a wheelchair: Y/N: No If yes- Manual or electric: Visits: 3 monthly documented in this encounter Plan of Treatment Upcoming Encounters Date Type Department Care Team ([facility] st Contact Info) Description 08/27/2025 10:30 AM EST Office Visit [facility] MEDICINE [address] [place] [address] [place] [address] Cheryl Fitzpatrick MD [address] [place] [address] documented as of this encounter Goals Goal Patient Goal Type Associated Problems Recent Progress Patient-Stated? Author Blood Pressure < 140/90 Blood Pressure 110/70(2024 9:50 AM EDT) No Kenzie Antunez PharmMiguel Hemoglobin A1c < 7 Result Component [...] Plan Patient has diabetic eye disease No Selma Mars Patient has chronic kidney disease Care [...] Care Plan Weekly blood pressure task No mD Harris Weekly blood pressure task Care Plan Weekly blood pressure task No Dm Harris Patient has diabetic eye disease Care Plan Patient has diabetic eye disease No Dm Harris Patient has diabetic eye disease Care Plan Patient has diabetic eye disease No Dm Harris Patient has diabetic eye disease Care Plan Patient has diabetic eye disease No Dm Harris Patient has chronic [...] documented as of this encounter Care Teams Esl Instructional Assistant Relationship Specialty Start Date End Date Cheryl Fitzpatrick MD [address] [place] [address] PCP - General Internal Medicine 09/10/22 Nick Castellanos FNP [address] [place] [address] Nurse Practitioner Family Medicine 07/04/23 Apolonia Mars care transition mgr Contact Acid Plant Operator HelperSupervisor Air Conditioning Installer 11/16/23 documented as of this encounter
--- OUTSIDE RECORDS SUMMARY | 2025-07-12 10:13 | XMS_ITS | Encounter Summary ---
Author Organization [employer] Address 75 [facility] 7t [place] [address] Care Team Providers Care Pig Furnace Operator Name Role Phone Cheryl Fitzpatrick MD Primary Care Provider + Nick Castellanos Unavailable Unavailable Reason for Visit * Reason Onset Date Comments PT1 10/27/2023 Encounter Details Date Type Department Care Team (Late st Contact Info) Description 10/27/2023 Telephone [facility] MEDICINE [address] [place], [place] [phone] Cheryl Fitzpatrick MD 230 [place], [place] [phone] PT1 Social History Tobacco Use Types Packs/Day [...] - 11/09/2023 1:24 PM EDT PT-1 Request [id number] Pending for [address] [place] [address] * Telephone Encounter - Maria De Jesus Epstein - 11/09/2023 1:20 PM EDT PT-1 Request [id number] [place] for [facility] * Telephone Encounter - Maria De Jesus Epstein - 11/09/2023 1:17 PM EDT PT-1 Request [id number] Pending For [facility] * Telephone Encounter - Shireen Johns - 10/27/2023 9:28 AM EST PT1 renewals Date: 11/09/2023 Time: 1:30 Visits: n/a Address: [address] [facility] [address] Facility: [facility] Wheel Chair: No Frog Shaker Needed: No Date: n/a Time: n/a Visits: n/a Address: [address] [facility] [address] Facility: [facility] Multiple Specialties Wheel Chair: no Frog Shaker Needed: no Date: n/a Time: n/a Visits: n/a Address: [address] [facility] Facility: Billing Services Manager Wheel Chair: no Frog Shaker Needed: no documented in this encounter Plan of Treatment Upcoming Encounters Date Type Department Care Team (Late st Contact Info) Description 08/27/2025 10:30 AM EST Office Visit [facility] MEDICINE [address] [place] [address] Cheryl Fitzpatrick MD [address] [place] [phone] documented as of this encounter Goals Goal [...] Noted Time PHQ-9 Depression Total Score: 11 022 024 9:34 AM EST documented as of this encounter Care Teams Pig Furnace Operator Relationship Specialty Start Date End Date Cheryl Fitzpatrick MD 230 [place] [address] PCP - General Internal Medicine 09/10/22 Nick Castellanos FNP [address] [place] [address] Nurse Practitioner Family Medicine 07/04/23 Court Shay Hand Hose Cutter 11/11/23 02/10/24 Apolonia Mars care process manager Hand Hose CutterPatient Relations Director 11/16/23 documented as of this encounter
--- OUTSIDE RECORDS SUMMARY | 2025-07-12 10:13 | XMS_ITS | Encounter Summary ---
Author Organization [employer] Address 75 [facility] 7t [place] [address] Care Team Providers Care Drum Operator Name Role Phone Cheryl Fitzpatrick MD Primary Care Provider + Nick Castellanos Unavailable Unavailable Reason for Visit * Reason Onset Date Comments PT-1 10/22/2024 Encounter Details Date Type Department Care Team (Late st Contact Info) Description 10/22/2024 Telephone [facility] MEDICINE [address] [place] [address] [phone] Cheryl Fitzpatrick MD 230 [place], [place] [phone] PT-1 (/) Social History Tobacco Use Types [...] Y/N: Yes Provider name or facility name: [facility] Escort needed: Do you have a wheelchair: Y/N: No If yes- Manual or electric: Visits: (5 x Mothly) Patient calling requesting PT1 Home Address verified: Y/N: Yes Provider name or facility name: [facility], [address] [place] [address] Escort needed: Y/N: No Do you have a wheelchair: Y/N: No If yes- Manual or electric: Visits: (5 x Monthly) Patient calling requesting PT1 Home Address verified: Yes Provider name or facility name: [facility], [address] [facility] [address], [place] [address] Escort needed: Y/N: No Do you have a wheelchair: Y/N: No If yes- Manual or electric: Visits: (2 x Monthly) documented in this encounter Plan of Treatment Upcoming Encounters Date Type Department Care Team (Late st Contact Info) Description 08/27/2025 10:30 AM EST Office Visit [facility] MEDICINE 230 [place] [address] Cheryl Fitzpatrick MD [address] [place] [address] documented as of this encounter Goals Goal [...] documented as of this encounter Care Teams Drum Operator Relationship Specialty Start Date End Date Cheryl Fitzpatrick MD [address] [place] [address] PCP - General Internal Medicine 09/10/22 Nick Castellanos FNP [address] [place] [address] Nurse Practitioner Family Medicine 07/04/23 Apolonia Mars intensive care medicine specialist Sharepoint AnalystFloral Assistant 11/16/23 documented as of this encounter
--- OUTSIDE RECORDS SUMMARY | 2025-07-12 10:14 | XMS_ITS | Encounter Summary ---
Author Organization [employer] Address 75 [facility] 7t [place] [address] Care Team Providers Care Cable Spooler Name Role Phone Cheryl Fitzpatrick MD Primary Care Provider + Edu Leung PharmD Unavailable [phone] Nick Castlelanos NIGHT BAKER Unavailable Unavailable Reason for Visit * Reason Comments Med Refill Encounter Details Date Type Department Care Team (Late st Contact Info) Description 12/18/2022 Refill [facility] [address] [place] [address] Marybel Webster MD [address] [place], [place] [phone] Social History Tobacco Use Types Packs/Day Years [...] Description 08/27/2025 10:30 AM EST Office Visit [facility] MEDICINE [address] [place] [address] Cheryl Fitzpatrick MD 230 [place] [address] documented as of this encounter Visit Diagnoses Not on filedocumented in this encounter Additional Health Concerns Assessment Noted Time PHQ-9 Depression Total Score: 9 11/16/19 10:11 AM EDT documented as of this encounter Care Teams Cable Spooler Relationship Specialty Start Date End Date Cheryl Fitzpatrick MD [address] [place] [address] PCP - General Internal Medicine 09/10/22 Edu Leung, Merari [address] [place] [address] Pharmacist Internal Medicine 06/14/23 06/28/23 Nick Castellanos FNP [address] [place] [address] Nurse Practitioner Family Medicine 07/04/23 Court Shay Ethics Officer 11/11/23 02/10/24 Apolonia Mars child care associate Ethics OfficerSteeplechase Jockey 11/16/23 documented as of this encounter
--- OUTSIDE RECORDS SUMMARY | 2025-07-12 10:14 | XMS_ITS | Encounter Summary ---
Author Organization [employer] Address 75 [facility] 7t [place] [address] Care Team Providers Care Wheelchair Rental Clerk Name Role Phone Cheryl Fitzpatrick MD Primary Care Provider + Edu Leung PharmD Unavailable Nick Castellanos RECREATION ENGINEER Unavailable Unavailable Encounter Details Date Type Department Care Team (Late st Contact Info) Description 05/18/2023 Abstract [facility] D[facility]AL 230 [place] [address] Hema Hill DDS [address] [place], [place] [phone] Social History Tobacco Use Types Packs/Day Years [...] Description 08/27/2025 10:30 AM EST Office Visit [facility] MEDICINE 230 [place] [address] Cheryl Fitzpatrick MD 230 [place] [address] documented as of this encounter Goals Goal Patient Goal Type Associated Problems Recent Progress Patient-Stated? Author Blood Pressure < 140/90 Blood Pressure 110/70(2024 9:50 AM EDT) No Piers-Gambl Knezie diaz, PharmD Hemoglobin A1c < 7 Result Component 8.2( 10:41 AM EDT) No Piers-Gambl eKenzie, PharmD documented as of this encounter Visit Diagnoses Not on filedocumented in this encounter Additional Health Concerns Assessment Noted Time PHQ-9 Depression Total Score: 7 05/09/20 23 1:43 PM EDT documented as of this encounter Care Teams Wheelchair Rental Clerk Relationship Specialty Start Date End Date Cheryl Fitzpatrick MD [address] [place] [address] PCP - General Internal Medicine 09/10/22 Edu Leung PharmD [address] [place] [address] Pharmacist Internal Medicine 06/14/23 06/28/23 Nick Castellanos FNP [address] [place] [address] Nurse Practitioner Family Medicine 07/04/23 Court Sh[address] Meatcutter 11/11/23 02/10/24 Apolonia Mars career technology teacher MeatcutterSurveillance Analyst 11/16/23 documented as of this encounter
--- OUTSIDE RECORDS SUMMARY | 2025-07-12 10:14 | XMS_ITS | Encounter Summary ---
Author Organization [employer] Address 75 [facility] 7t [place] [address] Care Team Providers Care Electric Knife Operator Name Role Phone Cheryl Fitzpatrick MD Primary Care Provider + Nick Castellanos Unavailable Unavailable Reason for Visit * Reason Onset Date Comments PT-1 04/16/2024 Encounter Details Date Type Department Care Team (Late st Contact Info) Description 04/16/2024 Telephone [facility] MEDICINE [address] [place] [address] [phone] Cheryl Fitzpatrick MD 230 [place], [place] [phone] PT-1 Social History Tobacco Use Types Packs/Day [...] Y/N: Yes Provider name or facility name: [facility] Physical Therapy - SHEKHAR Mathews [address] Facility Address: [address] [place] [address] [facility] needed: Y/N: No Do you have a wheelchair: Y/N: No If yes- Manual or electric: no Visits 6 documented in this encounter Plan of Treatment Upcoming Encounters Date Type Department Care Team ([facility] st Contact Info) Description 08/27/2025 10:30 AM EST Office Visit [facility] MEDICINE 230 [place] [address] Cheryl Fitzpatrick MD 230 [place] [address] documented as of this encounter Goals Goal [...] documented as of this encounter Care Teams Electric Knife Operator Relationship Specialty Start Date End Date Cheryl Fitzpatrick MD 230 [place] [address] PCP - General Internal Medicine 09/10/22 Nick Castellanos FNP 230 [place] [address] Nurse Practitioner Family Medicine 07/04/23 Apolonia Mars health care attorney Crystal Growing TechnicianUpsetter Setter Up 11/16/23 documented as of this encounter
--- OUTSIDE RECORDS SUMMARY | 2025-07-12 10:14 | XMS_ITS | Encounter Summary ---
Author Organization [employer] Address 75 [facility] 7t [place] [address] Care Team Providers Care Eight Section Blower Name Role Phone Cheryl Fitzpatrick MD Primary Care Provider + Edu Leung PharmD Unavailable [phone] Nick Castellanos ORACLE PROGRAMMER Unavailable Unavailable Reason for Visit * Reason Comments Med Refill Encounter Details Date Type Department Care Team (Late st Contact Info) Description 12/09/2022 Refill [facility] MEDICINE 230 [place], [place] [phone] Cheryl Fitzpatrick MD 230 [place], [place] [phone] Type 2 diabetes mellitus with hyperglycemia, with long-term current use of insulin ([facility]); Anxiety Social History Tobacco Use [...] Description 08/27/2025 10:30 AM EST Office Visit [facility] MEDICINE [address] [place] [address] Cheryl Fitzpatrick MD [address] [place] [address] documented as of this encounter Visit Diagnoses Diagnosis Type 2 diabetes mellitus with hyperglycemia, with long-term current use of insulin ([facility]) Anxiety Anxiety state, unspecified documented in this encounter Additional Health Concerns Assessment Noted Time PHQ-9 Depression Total Score: 9 11/16/19 23 10:11 AM EDT documented as of this encounter Care Teams Eight Section Blower Relationship Specialty Start Date End Date Cheryl Fitzpatrick MD [address] [place] [address] PCP - General Internal Medicine 09/10/22 Edu Leung PharmD [address] [place] [address] Pharmacist Internal Medicine 06/14/23 06/28/23 Nick Castellanos FNP [address] [place] [address] Nurse Practitioner Family Medicine 07/04/23 Court Shay Assistant Account Manager 11/11/23 02/10/24 Apolonia Mars healthcare or medical Assistant Account ManagerTool And Die Maker 11/16/23 documented as of this encounter
--- OUTSIDE RECORDS SUMMARY | 2025-07-12 10:14 | XMS_ITS | Encounter Summary ---
Author Organization [employer] Address 75 [facility] 7t [place] [address] Care Team Providers Care Hardwood Floor Sander Name Role Phone Cheryl Fitzpatrick MD Primary Care Provider + Edu Leung PharmD Unavailable [phone] Nick Castellanos RETAIL STORE ASSISTANT Unavailable Unavailable Reason for Visit * Reason Comments Med Refill Encounter Details Date Type Department Care Team (Late st Contact Info) Description 10/05/2022 Refill [facility] [address] [place] [address] [phone] Name, MD Pradeep [address] [place] [address] [phone] Type 2 diabetes mellitus with hyperglycemia, with long-term current use of insulin ([facility]); Anxiety Social History Tobacco Use Types [...] EST Office Visit [facility] MEDICINE 230 [place] [address] Cheryl Fitzpatrick MD 230 [place] [address] documented as of this encounter Visit Diagnoses Diagnosis Type 2 diabetes mellitus with hyperglycemia, with long-term current use of insulin ([facility]) Anxiety Anxiety state, unspecified documented in this encounter Additional Health Concerns Assessment Noted Time PHQ-9 Depression Total Score: 19 023 9:39 AM EST documented as of this encounter Care Teams Hardwood Floor Sander Relationship Specialty Start Date End Date Cheryl Fitzpatrick MD [address] [place] [address] PCP - General Internal Medicine 09/10/22 Edu Leung PharmD [address] [place] [address] Pharmacist Internal Medicine 06/14/23 06/28/23 Nick Castellanos FNP [address] [place] [address] Nurse Practitioner Family Medicine 07/04/23 [address] Biofuels Processing Technician 11/11/23 02/10/24 Apolonia Mars manager respiratory care Biofuels Processing TechnicianPayroll Benefits Administrator 11/16/23 documented as of this encounter
--- OUTSIDE RECORDS SUMMARY | 2025-07-12 10:14 | XMS_ITS | Encounter Summary ---
Author Organization [employer] Address 75 [facility] 7t [place] [address] Care Team Providers Care Journeyman Mechanic Name Role Phone Cheryl Fitzpatrick MD Primary Care Provider + Edu Leung PharmD Unavailable Nick Castellanos CLIN NURSE Unavailable Unavailable Encounter Details Date Type Department Care Team (Late st Contact Info) Description 10/05/2022 Orders Only [facility] MEDICINE [address] [place] [address] [phone] Cheryl Fitzpatrick MD 230 [place], [place] [phone] Fibromyalgia (Primary Dx); Migraine with aura and [...] [facility] [address] [place] [address] Cheryl Fitzpatrick MD 230 [place] [address] documented as of this encounter Visit Diagnoses Diagnosis Fibromyalgia- Primary Unspecified myalgia and myositis Migraine with aura and without status migrainosus, not intractable documented in this encounter Additional Health Concerns Assessment Noted Time PHQ-9 Depression Total Score: 19 023 9:39 AM EST documented as of this encounter Care Teams Journeyman Mechanic Relationship Specialty Start Date End Date Cheryl Fitzpatrick MD 230 [place] [address] PCP - General Internal Medicine 09/10/22 Edu Leung, Merrai [address] [place] [address] Pharmacist Internal Medicine 06/14/23 06/28/23 Nick Castellanos FNP [address] [place] [address] Nurse Practitioner Family Medicine 07/04/23 [address] Estate Manager 11/11/23 02/10/24 Apolonia Mars wound care coordinator Estate ManagerDisability Insurance Claim Examiner 11/16/23 documented as of this encounter
--- OUTSIDE RECORDS SUMMARY | 2025-07-12 10:14 | XMS_ITS | Encounter Summary ---
Author Organization [employer] Address 75 [facility] 7t [place] [address] Care Team Providers Care Cruise Counselor Name Role Phone Cheryl Fitzpatrick MD Primary Care Provider + Nick Castellanos Unavailable Unavailable Reason for Visit * Reason Comments Med Refill Encounter Details Date Type Department Care Team (Late st Contact Info) Description 09/29/2023 Refill [facility] [address] [place] [address] Nick Castellanos FNP Type 2 diabetes mellitus with hyperglycemia, with long-term current use of insulin ([facility]) Social History Tobacco Use Types [...] with others, in a hotel, in a chcf, living outside on the street, on a [...] Description 08/27/2025 10:30 AM EST Office Visit [facility] MEDICINE 230 [place] [address] Cheryl Fitzpatrick MD 230 [place] [address] documented as of this encounter Goals Goal Patient Goal Type Associated Problems Recent Progress Patient-Stated? Author Blood Pressure < 140/90 Blood Pressure 110/70(2024 9:50 AM EDT) No Kenzie Tran, PharmMiguel Hemoglobin A1c < 7 Result Component 8.2( 10:41 AM EDT) No Kenzie Tran PharmD documented as of this encounter Visit Diagnoses Diagnosis Type 2 diabetes mellitus with hyperglycemia, with long-term current use of insulin (HCC) documented in this encounter Additional Health Concerns Assessment Noted Time PHQ-9 Depression Total Score: 8 08/23/19 24 11:27 AM EST documented as of this encounter Care Teams Cruise Counselor Relationship Specialty Start Date End Date Cheryl Fitzpatrick MD 230 [place] [address] PCP - General Internal Medicine 09/10/22 Nick Castellanos FNP 230 [place] [address] Nurse Practitioner Family Medicine 07/04/23 [address] Sh[address] Supervisor Vine Fruit Farming 11/11/23 02/10/24 Apolonia Mars managed care analyst Supervisor Vine Fruit FarmingLogging Tractor Operator 11/16/23 documented as of this encounter
--- OUTSIDE RECORDS SUMMARY | 2025-07-12 10:14 | XMS_ITS | Encounter Summary ---
Author Organization [employer] Address 75 [facility] 7t [place] [address] Care Team Providers Care Poultry Field Service Technician Name Role Phone Cheryl Fitzpatrick MD Primary Care Provider + Nick Castellanos Unavailable Unavailable Reason for Visit * Reason Comments Med Refill Encounter Details Date Type Department Care Team (Late st Contact Info) Description 09/29/2023 Refill [facility] MEDICINE [address] [place], [place] [phone] Cheryl Fitzpatrick MD 230 [place] [address] Anxiety; Migraine with aura and without status [...] Description 08/27/2025 10:30 AM EST Office Visit [facility] MEDICINE [address] [place] [address] Cheryl Fitzpatrick MD 230 [place] [address] documented as of this encounter Goals Goal Patient Goal Type Associated Problems Recent Progress Patient-Stated? Author Blood Pressure < 140/90 Blood Pressure 110/70(2024 9:50 AM EDT) No Kenzie Tran PharmD Hemoglobin A1c < 7 Result Component 8.2( 10:41 AM EDT) No Kenzie Tran, HudsonD documented as of this encounter Visit Diagnoses Diagnosis Anxiety Anxiety state, unspecified Migraine with aura and without status migrainosus, not intractable documented in this encounter Additional Health Concerns Assessment Noted Time PHQ-9 Depression Total Score: 8 08/23/19 24 11:27 AM EST documented as of this encounter Care Teams Poultry Field Service Technician Relationship Specialty Start Date End Date Cheryl Fitzpatrick MD 230 [place] [address] PCP - General Internal Medicine 09/10/22 Nick Castellanos FNP [address] [place] [address] Nurse Practitioner Family Medicine 07/04/23 [address] Sh[address] Central Services Tech 11/11/23 02/10/24 Apolonia Mars health care coordinator Central Services TechCorrugator Helper 11/16/23 documented as of this encounter
--- OUTSIDE RECORDS SUMMARY | 2025-07-12 10:14 | XMS_ITS | Encounter Summary ---
Author Organization [employer] Address 75 [facility] 7t [place] [address] Care Team Providers Care Logistics Research Engineer Name Role Phone Cheryl Fitzpatrick MD Primary Care Provider + Edu Leung PharmD Unavailable [phone] Nick Castellanos SENIOR BACK END JAVA DEVELOPER Unavailable Unavailable Reason for Visit * Reason Onset Date Comments call back 10/05/2022 Encounter Details Date Type Department Care Team (Late st Contact Info) Description 10/05/2022 Telephone [facility] MEDICINE [address] [place] [address] [phone] Cheryl Fitzpatrick MD 230 [place], [place] [phone] call back Social History Tobacco Use Types [...] 10:30 AM EST Office Visit [facility] MEDICINE [address] [place] [address] Cheryl Fitzpatrick MD [address] [place] [address] documented as of this encounter Visit Diagnoses Not on filedocumented in this encounter Additional Health Concerns Assessment Noted Time PHQ-9 Depression Total Score: 19 023 9:39 AM EST documented as of this encounter Care Teams Logistics Research Engineer Relationship Specialty Start Date End Date Cheryl Fitzpatrick MD [address] [place] [address] PCP - General Internal Medicine 09/10/22 Edu Leung, HudsonD [address] [place] [address] Pharmacist Internal Medicine 06/14/23 06/28/23 Nick Castellanos FNP [address] [place] [address] Nurse Practitioner Family Medicine 07/04/23 [address] Organ Builder 11/11/23 02/10/24 Apolonia Mars care trainer Organ BuilderStabilizer Operator 11/16/23 documented as of this encounter
--- OUTSIDE RECORDS SUMMARY | 2025-07-12 10:14 | XMS_ITS | Encounter Summary ---
Author Organization [employer] Address 75 [facility] 7t [place] [address] Care Team Providers Care Box Car Loader Name Role Phone Cheryl Fitzpatrick MD Primary Care Provider + Nick Castellanos Unavailable Unavailable Reason for Visit * Reason Onset Date Comments Paperwork/Forms 10/19/2023 Encounter Details Date Type Department Care Team (Late st Contact Info) Description 10/19/2023 Telephone [facility] MEDICINE [address] [place] [address] [phone] Cheryl Fitzpatrick MD [address] [place], [place] [phone] Paperwork/Forms Social History Tobacco Use Types Packs/Day [...] to welfare before they close her case. Store Administrative Assistant advised pt she has an appointment this Tuesday (10/19) with provider. Please contact pt at [phone] (Polish) documented in this encounter Plan of Treatment Upcoming Encounters Date Type Department Care Team (Late st Contact Info) Description 08/27/2025 10:30 AM EST Office Visit [facility] MEDICINE [address] [place] [address] Cheryl Fitzpatrick MD [address] [place] [address] documented as of this encounter Goals Goal [...] documented as of this encounter Care Teams Box Car Loader Relationship Specialty Start Date End Date Cheryl Fitzpatrick MD [address] [place] [address] PCP - General Internal Medicine 09/10/22 Nick Castellanos FNP [address] [place] [address] Nurse Practitioner Family Medicine 07/04/23 [address] Knifeman 11/11/23 02/10/24 Apolonia Mars specialist wound care KnifemanCan Labeler 11/16/23 documented as of this encounter
--- OUTSIDE RECORDS SUMMARY | 2025-07-12 10:14 | XMS_ITS | Encounter Summary ---
Author Organization [employer] Address [address] [facility] 7t [place] [address] Care Team Providers Care Top And Trim Worker Name Role Phone Cheryl Fitzpatrick MD Primary Care Provider + Nick Castellanos Unavailable Unavailable Reason for Visit * Reason Onset Date Comments Created in error 03/20/2024 Encounter Details Date Type Department Care Team (Late st Contact Info) Description 03/20/2024 Telephone [facility] [address] [place] [address] [phone] Cheryl Fitzpatrick MD [address] [place], [place] [phone] Created in error Social History Tobacco Use [...] 08/27/2025 10:30 AM EST Office Visit [facility] [address] [place] [address] Cheryl Fitzpatrick MD [address] [place] [address] documented as of this encounter Goals Goal [...] documented as of this encounter Care Teams Top And Trim Worker Relationship Specialty Start Date End Date Cheryl Fitzpatrick MD [address] [place] [address] PCP - General Internal Medicine 09/10/22 Nick Castellanos FNP [address] [place] [address] Nurse Practitioner Family Medicine 07/04/23 Apolonia Mars home health care provider Apparel DesignerLivestock Commission Agent 11/16/23 documented as of this encounter
--- OUTSIDE RECORDS SUMMARY | 2025-07-12 10:14 | XMS_ITS | Encounter Summary ---
Author Organization [employer] Address 75 [facility] 7t [place] [address] Care Team Providers Care Language Teacher Name Role Phone Cheryl Fitzpatrick MD Primary Care Provider + Edu Leung PharmD Unavailable [phone] Nick Castellanos CALENDERER Unavailable Unavailable Encounter Details Date Type Department Care Team (Late st Contact Info) Description 11/12/2022 Abstract [facility] [address] [place], [place] [phone] Cheryl Fitzpatrick MD [address] [place], [place] [phone] Social History Tobacco Use Types Packs/Day Years [...] Health Questionnaire-2 Score 4 11/15/2022 10:11 AM SRINIVAST Elham Aly [place] * Question Answer Date of Assessment Author Trouble falling or staying asleep, or sleeping too much Several days 11/15/2022 10:11 AM EDT Rosa Aly MA Feeling tired or having little energy Not at all 11/15/2022 10:11 AM SRINIVAST Rosa Aly [place] Poor appetite or overeating [...] Health Questionnaire-9 Score 9 11/15/2022 10:11 AM EDT Rosa Aly MA * How difficult have these problems made it for you to do your work, take care of things at home, or get along with other people? Answer Date of Assessment Author Not difficult at all 11/15/2022 10:11 AM EDT Rosa Brooks MA documented as of this encounter Plan of Treatment Upcoming Encounters Date Type Department Care Team (Late st Contact Info) Description 08/27/2025 10:30 AM EST Office Visit [facility] [address] [place] [address] Cheryl Fitzpatrick MD [address] [place] [address] documented as of this encounter Visit Diagnoses Not on filedocumented in this encounter Additional Health Concerns Assessment Noted Time PHQ-9 Depression Total Score: 19 023 9:39 AM EST documented as of this encounter Care Teams Language Teacher Relationship Specialty Start Date End Date Cheryl Fitzpatrick MD [address] [place] [address] PCP - General Internal Medicine 09/10/22 Edu Leung, HudsonD [address] [place] [address] Pharmacist Internal Medicine 06/14/23 06/28/23 Nick Castellanos FNP [address] [place] [address] Nurse Practitioner Family Medicine 07/04/23 [address] Gas Scrubber Operator 11/11/23 02/10/24 Apolonia Mars career portals teacher Gas Scrubber OperatorCar Cooper 11/16/23 documented as of this encounter
--- OUTSIDE RECORDS SUMMARY | 2025-07-12 10:14 | XMS_ITS | Encounter Summary ---
Author Organization [employer] Address 75 [facility] 7t [place] [address] Care Team Providers Care Doll Dresser Name Role Phone Cheryl Fitzpatrick MD Primary Care Provider + Nick Castellanos Unavailable Unavailable Reason for Visit * Reason Comments Med Refill Encounter Details Date Type Department Care Team (Late st Contact Info) Description 09/29/2023 Refill [facility] MED[facility]INE 230 [place], [place] [phone] Cheryl Fitzpatrick MD 230 [place] [address] Anxiety; Migraine with aura and without status [...] Description 08/27/2025 10:30 AM EST Office Visit [facility] [address] [place] [address] Cheryl Fitzpatrick MD [address] [place] [address] documented as of this encounter Goals Goal [...] documented as of this encounter Care Teams Doll Dresser Relationship Specialty Start Date End Date Cheryl Fitzpatrick MD [address] [place] [address] PCP - General Internal Medicine 09/10/22 Nick Castellanos FNP [address] [place] [address] Nurse Practitioner Family Medicine 07/04/23 Court Shay Technical Support Consultant 11/11/23 02/10/24 Apolonia Mars field care advocate Technical Support ConsultantProfessor Criminal Justice 11/16/23 documented as of this encounter
--- OUTSIDE RECORDS SUMMARY | 2025-07-12 10:14 | XMS_ITS | Encounter Summary ---
Author Organization [employer] Address 75 [facility] 7t [place] [address] Care Team Providers Care Ticketer Name Role Phone Cheryl Fitzpatrick MD Primary Care Provider + Edu Leung PharmD Unavailable [phone] Nick Castellanos BUSINESS SERVICES REPRESENTATIVE Unavailable Unavailable Reason for Visit * Reason Onset Date Comments cancelling appt with OS 04/19/2023 Encounter Details Date Type Department Care Team (Late st Contact Info) Description 04/19/2023 Telephone [facility] 230 [place], [place] [phone] Hema Hill DDS [address] [place], [place] [phone] cancelling appt with OS Social History Tobacco [...] Description 08/27/2025 10:30 AM EST Office Visit [facility] [address] [place] [address] Cheryl Fitzpatrick MD [address] [place] [address] documented as of this encounter Goals Goal [...] Noted Time PHQ-9 Depression Total Score: 12 04/07/ 023 10:04 AM EDT documented as of this encounter Care Teams Ticketer Relationship Specialty Start Date End Date Cheryl Fitzpatrick MD [address] [place] [address] PCP - General Internal Medicine 09/10/22 Edu Leung, HudsonD [address] [place] [address] Pharmacist Internal Medicine 06/14/23 06/28/23 Nick Castellanos FNP [address] [place] [address] Nurse Practitioner Family Medicine 07/04/23 [address] Sh[address] Warranty Clerk 11/11/23 02/10/24 Apolonia Mars home health care worker Warranty ClerkHeel Cementer Machine 11/16/23 documented as of this encounter
--- OUTSIDE RECORDS SUMMARY | 2025-07-12 10:14 | XMS_ITS | Encounter Summary ---
Author Organization [employer] Address 75 [facility] 7t [place] [address] Care Team Providers Care Supply Chain Planner Name Role Phone Cheryl Fitzpatrick MD Primary Care Provider + Nick Castellanos Unavailable Unavailable Reason for Visit * Reason Onset Date Comments PT1 03/15/2024 Encounter Details Date Type Department Care Team (Late st Contact Info) Description 03/15/2024 Telephone [facility] MEDICINE 230 [place], [place] [phone] Cheryl Fitzpatrick MD 230 [place], [place] [phone] PT1 Social History Tobacco Use Types Packs/Day [...] states is homeless and is currently at [address] [place] [address] Provider name or facility name: [facility] physical therapy Facility Address: [address] [place] [address] Escort needed: Y/N: No Do you have a wheelchair: Y/N: No If yes- Manual or electric: no Visits: 5-6 visit a month documented in this encounter Plan of Treatment Upcoming Encounters Date Type Department Care Team (Late st Contact Info) Description 08/27/2025 10:30 AM EST Office Visit [facility] [address] [place] [address] Cheryl Fitzpatrick MD [address] [place] [address] documented as of this encounter Goals Goal Patient Goal Type Associated Problems Recent Progress Patient-Stated? Author Blood Pressure < 140/90 Blood Pressure 110/70(2024 9:50 AM EDT) No Yongs-Gambl Fay diazsa, PharmD Hemoglobin A1c < 7 Result Component 8.2( 10:41 AM EDT) No Piers-Gambl eKenzie, PharmD documented as of this encounter Visit Diagnoses Not on filedocumented in this encounter Additional Health Concerns Assessment Noted Time PHQ-9 Depression Total Score: 10 024 10:01 AM EDT documented as of this encounter Care Teams Supply Chain Planner Relationship Specialty Start Date End Date Cheryl Fitzpatrick MD [address] [place] [address] PCP - General Internal Medicine 09/10/22 Nick Castellanos FNP [address] [place] [address] Nurse Practitioner Family Medicine 07/04/23 Apolonia Mars home child care provider High School Band DirectorInsurance And Financial Services Agent 11/16/23 documented as of this encounter
== END 2025-07-12 09:34 | disposition home or self-care (01) ==
LOC: HO.US 09:33
PROVIDERS: PCP Internal Medicine; Visit Provider Nurse Practitioner Family
DX: K76.0 Fatty (change of) liver, not elsewhere classified (principal)
CPT/HCPCS: 76705; 76981

== ENCOUNTER → 2025-07-12 09:38 | Outpatient (BNV) | payer MEDICAID, SELFPAY | PROVIDERS: PCP Internal Medicine; Visit Provider Radiology Diagnostic Radiology | DX: K76.0 Fatty (change of) liver, not elsewhere classified (principal) | CPT/HCPCS: 76705 ==

== ENCOUNTER 2025-07-31 14:14 | Outpatient (AMB) | payer MEDICAID, SELFPAY ==
--- NOTE | 2025-07-31 14:23 | A.OFFVIS_ITS ---
Intake Visit Reasons: Bilateral shoulder pain and weakness Intake Note: Lizet is a 49 year old female left hand dominant who presents with complaints of progressively worsening bilateral shoulder pains and weakness, right greater than left. The patient describes her right shoulder pain as sharp in nature. Most of the pain is along the lateral aspect of her shoulder. The patient states that her symptoms have gotten worse over the last year in spite of continued non operative treatments. She has failed the last 6 weeks of conservative treatment which has included Tylenol, anti-inflammatory medicines, physical therapy exercises and a home exercise program. Allergies dulaglutide (From Trulicity) Allergy (Verified 04/18/25 16:15) Unknown Sulfa (Sulfonamide Antibiotics) Allergy (Verified 04/18/25 16:15) Unknown Medication List - Last Reconciled 07/31/25 by Anthony Buckley MD acetaminophen (Tylenol Extra Strength) 1,000 mg (2 x 500 mg) PO Q8H PRN amitriptyline 75 mg PO DAILY aripiprazole (Abilify) 5 mg PO BEDTIME bisacodyl (Dulcolax (bisacodyl)) 10 mg (2 x 5 mg) PO BEDTIME clonazepam 2 mg PO TID cyclobenzaprine 10 mg PO TID PRN empagliflozin (Jardiance) 25 mg PO QAM gabapentin 800 mg PO TID ibuprofen 600 mg PO Q6H PRN insulin degludec (Tresiba FlexTouch U-100 insulin) 72 units subcut QPM insulin lispro protamin-lispro 100 unit/mL (50-50) (Humalog Mix 50-50 Insuln U- 100) 12 units subcut TID lidocaine 5% 1 patch topical DAILY losartan-hydrochlorothiazide 50-12.5 mg 1 tab PO DAILY nystatin 1 appl topical BID 14 days oxycodone-acetaminophen 5-325 mg 1 tab PO Q6H PRN pantoprazole 40 mg PO QAM topiramate 50 mg PO BID trazodone 150 mg PO BEDTIME PFSH Medical History Upper extremity weakness Myositis Chest pain Diabetes Asthma High cholesterol IDDM (insulin dependent diabetes mellitus) Surgical History History of esophagogastroduodenoscopy (EGD) Hx of colonoscopy H/O: hysterectomy H/O tubal ligation Social History Household Members: Family Are you a primary transitions rn care coordinator to a significant other at home: No Do you presently have visiting nurse or other home services: No Alcohol intake: never Patient Tobacco Use Status: Current someday Tobacco user Tobacco use type: Smokeless Tobacco Cigarettes Per Day: 1 Second Hand Smoke Exposure: No Physical Exam Const Other: Well-nourished well-developed very friendly female awake alert and oriented x3 in no acute distress Extrem Other: Right shoulder examination shows decreased range of motion when compared to her left shoulder, 4+ out of 5 strength with supraspinatus testing, positive impingement signs, tenderness over her acromioclavicular joint, no instability Results Reviewed Results Reviewed: X-rays of the patient's bilateral shoulder show severe acromioclavicular joint narrowing, type 3 acromion, no acute bony abnormalities Assessment & Plan Assessment & Plan (1) Rotator cuff insufficiency of right shoulder: Code(s): M25.311 - Other instability, right shoulder Category: Medical Plan Lizet presents with progressively worsening right shoulder pain and weakness due to impingement syndrome and possible rotator cuff tearing. Thus, I will send the patient for an MRI of her right shoulder for further evaluation. I will see her back following the MRI to discuss the findings and treatment options. She will continue with her [id number] exercises in the meantime. Feel free to call me at any time should questions regarding her orthopedic management arise. Thank you very much for asking me to see this very friendly patient. I spent 20 minutes in reviewing the patient's records and imaging studies, seeing the patient and documenting in the medical record. Orders: Orders MR shoulder RT wo con Today M25.311 - Other instability, right shoulder Medications: New methylprednisolone (Medrol (Iftikhar)) PO PER PKG DIR 21 ea 0RF Coding Level of Care Code New Pt Level 3 (68143) Add On Problem Visit Only Diagnoses Rotator cuff insufficiency of right shoulder M25.311
--- OUTSIDE RECORDS SUMMARY | 2025-07-31 22:15 | XMS_ITS | Encounter Summary ---
Author Organization [email or web address] Address 75 [facility] 7t [place] [address] Care Team Providers Care Spot Machine Operator Name Role Phone Cheryl Fitzpatrick MD Primary Care Provider + Nick Castellanos Unavailable Unavailable Encounter Details Date Type Department Care Team (Late st Contact Info) Description 09/11/2024 Telephone [facility] 230 [place], [place] [phone] Cheryl Fitzpatrick MD 230 [place], [place] [phone] Social History Tobacco Use Types Packs/Day Years [...] Description 08/27/2025 10:30 AM EST Office Visit [facility] 230 [place] [address] Cheryl Fitzpatrick MD [address] [place] [address] documented as of this encounter Goals Goal [...] documented as of this encounter Care Teams Spot Machine Operator Relationship Specialty Start Date End Date Cheryl Fitzpatrick MD 230 [place] [address] PCP - General Internal Medicine 09/10/22 Nick Castellanos FNP 230 [place] [address] Nurse Practitioner Family Medicine 07/04/23 Apolonia Mars rn intensive care unit Clerk CheckerCasino Cage Supervisor 11/16/23 documented as of this encounter
--- OUTSIDE RECORDS SUMMARY | 2025-07-31 22:15 | XMS_ITS | Encounter Summary ---
Author Organization [employer] Address 75 [facility] 7t [place] [address] Care Team Providers Care Salesperson Men'S Furnishings Name Role Phone Cheryl Fitzpatrick MD Primary Care Provider + Nick Castellanos Unavailable Unavailable Reason for Visit * Reason Comments Med Refill Encounter Details Date Type Department Care Team (Late st Contact Info) Description 09/13/2024 Refill [facility] MEDICINE 230 [place], [place] [phone] Cheryl Fitzpatrick MD [address] [place], [place] [phone] Anxiety; Migraine with aura and without status [...] Description 08/27/2025 10:30 AM EST Office Visit [facility] [address] [place] [address] Cheryl Fitzpatrick MD 230 [place] [address] documented as of this encounter Goals Goal [...] documented as of this encounter Care Teams Salesperson Men'S Furnishings Relationship Specialty Start Date End Date Cheryl Fitzpatrick MD [address] [place] [address] PCP - General Internal Medicine 09/10/22 Nick Castellanos FNP [address] [place] [address] Nurse Practitioner Family Medicine 07/04/23 Apolonia Mars long term care phlebotomist Branch ChiefForm Tamper 11/16/23 documented as of this encounter
--- OUTSIDE RECORDS SUMMARY | 2025-07-31 22:16 | XMS_ITS | Encounter Summary ---
Author Organization [employer] Address 75 [facility] 7t [place] [address] Care Team Providers Care Customs Officer Name Role Phone Chreyl Fitzpatrick MD Primary Care Provider + Nick Castellanos Unavailable Unavailable Reason for Visit * Reason Onset Date Comments PT1 10/27/2023 Encounter Details Date Type Department Care Team (Late st Contact Info) Description 10/27/[address] [facility] MEDICINE 230 [place], [place] [phone] Cheryl Fitzpatrick MD 230 [place], [place] [phone] PT1 Social History Tobacco Use Types Packs/Day [...] - 11/09/2023 1:24 PM EDT PT-1 Request [id number] Pending for [address] [place] [address] * Telephone Encounter - Maria De Jesus Epstein - 11/09/2023 1:20 PM EDT PT-1 Request [id number] [place] [facility] [place] Telephone Encounter - Maria De Jesus Epstein - 11/09/2023 1:17 PM EDT PT-1 Request [id number] Pending For [facility] * Telephone Encounter - Shireen Johns - 10/27/2023 9:28 AM EST PT1 renewals Date: 11/09/2023 Time: 1:30 Visits: n/a Address: [address] [facility] [address] Facility: [facility] Wheel Chair: No Mechanical Maintenance Worker Needed: No Date: n/a Time: n/a Visits: n/a Address: [address] [facility] [address] [place] [facility] [place] [facility] Wheel Chair: no Mechanical Maintenance Worker Needed: no Date: n/a Time: n/a Visits: n/a Address: [address] [facility] Facility: [employer] Wheel Chair: no Mechanical Maintenance Worker Needed: no documented in this encounter Plan of Treatment Upcoming Encounters Date Type Department Care Team (Late st Contact Info) Description 08/27/2025 10:30 AM EST Office Visit [facility] MEDICINE [address] [place] [address] Cheryl Fitzpatrick MD [address] [place] [address] documented as of this encounter Goals Goal [...] documented as of this encounter Care Teams Customs Officer Relationship Specialty Start Date End Date Cheryl Fitzpatrick MD 230 [place] [address] PCP - General Internal Medicine 09/10/22 Nick Castellanos FNP [address] [place] [address] Nurse Practitioner Family Medicine 07/04/23 [address] Web Applications Architect 11/11/23 02/10/24 Apolonia Mars geriatric personal care aide Web Applications ArchitectPublic Health Dietitian 11/16/23 documented as of this encounter
--- OUTSIDE RECORDS SUMMARY | 2025-07-31 22:16 | XMS_ITS | Encounter Summary ---
Author Organization [employer] Address 75 [facility] 7t [place] [address] Care Team Providers Care Histology Assistant Name Role Phone Cheryl Fitzpatrick MD Primary Care Provider + Nick Castellanos Unavailable Unavailable Reason for Visit * Reason Comments Med Refill Encounter Details Date Type Department Care Team (Late st Contact Info) Description 11/10/2023 Refill [facility] MEDICINE 230 [place] [address] Nick Castellanos FNP Type 2 diabetes mellitus with hyperglycemia, with long-term current use of insulin ([facility]) Social History Tobacco Use Types [...] 10:30 AM EST Office Visit [facility] MEDICINE [address] [place] [address] Cheryl Fitzpatrick MD 230 [place] [address] documented as of this encounter Goals Goal Patient Goal Type Associated Problems Recent Progress Patient-Stated? Author Blood Pressure < 140/90 Blood Pressure 110/70(2024 9:50 AM EDT) No Knezie Tran PharmD Hemoglobin A1c < 7 Result Component 8.2( 10:41 AM EDT) No Kenzie Tran PharmD documented as of this encounter Visit Diagnoses Diagnosis Type 2 diabetes mellitus with hyperglycemia, with long-term current use of insulin (HCC) documented in this encounter Additional Health Concerns Assessment Noted Time PHQ-9 Depression Total Score: 11 024 9:34 AM EST documented as of this encounter Care Teams Histology Assistant Relationship Specialty Start Date End Date Cheryl Fitzpatrick MD 230 [place] [address] PCP - General Internal Medicine 09/10/22 Nick Castellanos FNP 230 [place] [address] Nurse Practitioner Family Medicine 07/04/23 Court Shay Pest Control Operator 11/11/23 02/10/24 Apolonia Mars director day care center Pest Control OperatorAlteration Inspector 11/16/23 documented as of this encounter
--- OUTSIDE RECORDS SUMMARY | 2025-07-31 22:16 | XMS_ITS | Encounter Summary ---
Author Organization [employer] Address 75 [facility] [address] [place] [address] Care Team Providers Care Fixed Income Portfolio Manager Name Role Phone Cheryl Fitzpatrick MD Primary Care Provider + Nick Castellanos Unavailable Unavailable Reason for Visit * Reason Onset Date Comments PT-1 04/16/2024 Encounter Details Date Type Department Care Team (Late st Contact Info) Description 04/16/2024 Telephone [facility] [address] [place] [address] [phone] Cheryl Fitzpatrick MD 230 [place], [place] [phone] PT-1 Social History Tobacco Use Types Packs/Day [...] Y/N: Yes Provider name or facility name: [facility] Physical Therapy - SHEKHAR Mathews [address] Facility Address: [address] [place] [address] [facility]: Y/N: No Do you have a wheelchair: Y/N: No If yes- Manual or electric: no Visits 6 documented in this encounter Plan of Treatment Upcoming Encounters Date Type Department Care Team ([facility] st Contact Info) Description 08/27/2025 10:30 AM EST Office Visit [facility] 230 [place] [address] Cheryl Fitzpatrick MD 230 [place] [address] documented as of this encounter Goals Goal [...] documented as of this encounter Care Teams Fixed Income Portfolio Manager Relationship Specialty Start Date End Date Cheryl Fitzpatrick MD 230 [place] [address] PCP - General Internal Medicine 09/10/22 Nick Castellanos FNP 230 [place] [address] Nurse Practitioner Family Medicine 07/04/23 Apolonia Mars care clinician Corporate Accounting ManagerBusiness Management Consultant 11/16/23 documented as of this encounter
--- OUTSIDE RECORDS SUMMARY | 2025-07-31 22:16 | XMS_ITS | Encounter Summary ---
Author Organization [employer] Address 75 [facility] 7t [place] [address] Care Team Providers Care Business Area Director Name Role Phone Cheryl Fitzpatrick MD Primary Care Provider + Edu Leung PharmD Unavailable [phone] Nick Castellanos CUSTOMS MANAGER Unavailable Unavailable Encounter Details Date Type Department Care Team (Late st Contact Info) Description 10/05/2022 Orders Only [facility] [address] [place] [address] [phone] Cheryl Fitzpatrick MD 230 [place], [place] [phone] Fibromyalgia (Primary Dx); Migraine with aura and [...] Description 08/27/2025 10:30 AM EST Office Visit [facility] 230 [place] [address] Cheryl Fitzpatrick MD 230 [place] [address] documented as of this encounter Visit Diagnoses Diagnosis Fibromyalgia- Primary Unspecified myalgia and myositis Migraine with aura and without status migrainosus, not intractable documented in this encounter Additional Health Concerns Assessment Noted Time PHQ-9 Depression Total Score: 19 023 9:39 AM EST documented as of this encounter Care Teams Business Area Director Relationship Specialty Start Date End Date Cheryl Fitzpatrick MD 230 [place] [address] PCP - General Internal Medicine 09/10/22 Edu Leung, Merari [address] [place] [address] Pharmacist Internal Medicine 06/14/23 06/28/23 Nick Castellanos FNP [address] [place] [address] Nurse Practitioner Family Medicine 07/04/23 Court Shay Product Specialist 11/11/23 02/10/24 Apolonia Mars career and transition teacher Product SpecialistCode Enforcement Inspector 11/16/23 documented as of this encounter
--- OUTSIDE RECORDS SUMMARY | 2025-07-31 22:16 | XMS_ITS | Encounter Summary ---
Author Organization [employer] Address 75 [facility] 7t [place] [address] Care Team Providers Care Consultant Name Role Phone Cheryl Fitzpatrick MD Primary Care Provider + Nick Castellanos Unavailable Unavailable Reason for Visit * Reason Onset Date Comments PT1 07/11/2025 Encounter Details Date Type Department Care Team (Late st Contact Info) Description 07/11/2025 Telephone [facility] 230 [place], [place] [phone] Cheryl Fitzpatrick MD 230 [place], [place] [phone] PT1 Social History Tobacco Use Types Packs/Day [...] [facility] [address], [place] [address] Escort needed: Y/N: No Do you have a wheelchair: Y/N: No If yes- Manual or electric: Visits: 3 monthly documented in this encounter Plan of Treatment Upcoming Encounters Date Type Department Care Team ([facility] st Contact Info) Description 08/27/2025 10:30 AM EST Office Visit [facility] MED[facility]INE [address] [place] [address] [place] [address] Cheryl Fitzpatrick MD 230 [place] [address] documented as of this encounter Goals Goal [...] documented as of this encounter Care Teams Consultant Relationship Specialty Start Date End Date Cheryl Fitzpatrick MD [address] [place] [address] PCP - General Internal Medicine 09/10/22 Nick Castellanos FNP 230 [place] [address] Nurse Practitioner Family Medicine 07/04/23 Apolonia Mars care program director Fast Food AttendantRailroad Track Repair Supervisor 11/16/23 documented as of this encounter
--- OUTSIDE RECORDS SUMMARY | 2025-07-31 22:16 | XMS_ITS | Encounter Summary ---
Author Organization [employer] Address 75 [facility] 7t [place] [address] Care Team Providers Care Aerobics Instructor Name Role Phone Cheryl Fitzpatrick MD Primary Care Provider + Edu Leung PharmD Unavailable [phone] Nick Castellanos ANTHROPOLOGY LECTURER Unavailable Unavailable Reason for Visit * Reason Comments Med Refill Encounter Details Date Type Department Care Team (Late st Contact Info) Description 10/05/2022 Refill [facility] [address] [place] [address] [phone] Name, MD Pradeep [address] [place] [address] [phone] Type 2 diabetes mellitus with hyperglycemia, with long-term current use of insulin ([facility]); Anxiety Social History Tobacco Use [...] Description 08/27/2025 10:30 AM EST Office Visit [facility] 230 [place] [address] Cheryl Fitzpatrick MD 230 [place] [address] documented as of this encounter Visit Diagnoses Diagnosis Type 2 diabetes mellitus with hyperglycemia, with long-term current use of insulin ([facility]) Anxiety Anxiety state, unspecified documented in this encounter Additional Health Concerns Assessment Noted Time PHQ-9 Depression Total Score: 19 023 9:39 AM EST documented as of this encounter Care Teams Aerobics Instructor Relationship Specialty Start Date End Date Cheryl Fitzpatrick MD [address] [place] [address] PCP - General Internal Medicine 09/10/22 Edu Leung PharmD [address] [place] [address] Pharmacist Internal Medicine 06/14/23 06/28/23 Nick Castellanos FNP [address] [place] [address] Nurse Practitioner Family Medicine 07/04/23 [address] Coastal/Harbor Defense Officer 11/11/23 02/10/24 Apolonia Mars health care liaison Coastal/Harbor Defense OfficerSpecialty Trimmer 11/16/23 documented as of this encounter
--- OUTSIDE RECORDS SUMMARY | 2025-07-31 22:16 | XMS_ITS | Encounter Summary ---
Author Organization [employer] Address 75 [facility] 7t [place] [address] Care Team Providers Care Sweeper Cleaner Industrial Name Role Phone Cheryl Fitzpatrick MD Primary Care Provider + Nick Castellanos Unavailable Unavailable Reason for Visit * Reason Onset Date Comments cx scheduled appt 02/08/2025 Encounter Details Date Type Department Care Team (Late st Contact Info) Description 02/08/2025 Telephone [facility] D[facility]AL 230 [place] [address] Hema Hill DDS [address] [place], [place] [phone] cx scheduled appt Social History Tobacco Use [...] denture adjustment due to pain. However, front end ui developer C called that they were in the [...] pin worsens and persists. Provided phone number [phone] documented in this encounter Plan of Treatment Upcoming Encounters Date Type Department Care Team (Late st Contact Info) Description 08/27/2025 10:30 AM EST Office Visit [facility] MED[facility]INE 230 [place] [address] Cheryl Fitzpatrick MD 230 [place] [address] documented as of this encounter Goals Goal [...] documented as of this encounter Care Teams Sweeper Cleaner Industrial Relationship Specialty Start Date End Date Cheryl Fitzpatrick MD 230 [place] [address] PCP - General Internal Medicine 09/10/22 Nick Castellanos FNP [address] [place] [address] Nurse Practitioner Family Medicine 07/04/23 Apolonia Mars healthcare technician Fiberglass GrinderTransformer Stock Clerk 11/16/23 documented as of this encounter
--- OUTSIDE RECORDS SUMMARY | 2025-07-31 22:16 | XMS_ITS | Encounter Summary ---
Author Organization [employer] Address 75 [facility] 7t [place] [address] Care Team Providers Care Senior Geotechnical Engineer Name Role Phone Cheryl Fitzpatrick MD Primary Care Provider + Edu Leung PharmD Unavailable Nick Castellanos HOTEL VALET ATTENDANT Unavailable Unavailable Encounter Details Date Type Department Care Team (Late st Contact Info) Description 05/18/2023 Abstract [facility]AL 230 [place] [address] Hema Hill DDS 230 [place], [place] [phone] Social History Tobacco Use Types Packs/Day Years [...] 10:30 AM EST Office Visit [facility] 230 [place] [address] Cheryl Fitzpatrick MD 230 [place] [address] documented as of this encounter Goals Goal Patient Goal Type Associated Problems Recent Progress Patient-Stated? Author Blood Pressure < 140/90 Blood Pressure 110/70(2024 9:50 AM EDT) No Piers-Gambl Kenzie diaz, PharmD Hemoglobin A1c < 7 Result Component 8.2( 10:41 AM EDT) No Piers-Gambl eKenzie, PharmD documented as of this encounter Visit Diagnoses Not on filedocumented in this encounter Additional Health Concerns Assessment Noted Time PHQ-9 Depression Total Score: 7 05/09/20 23 1:43 PM EDT documented as of this encounter Care Teams Senior Geotechnical Engineer Relationship Specialty Start Date End Date Cheryl Fitzpatrick MD [address] [place] [address] PCP - General Internal Medicine 09/10/22 Edu Leung PharmD [address] [place] [address] Pharmacist Internal Medicine 06/14/23 06/28/23 Nick Castellanos FNP [address] [place] [address] Nurse Practitioner Family Medicine 07/04/23 Court Shay Underwriter 11/11/23 02/10/24 Apolonia Mars companion caregiver UnderwriterAbrasive Band Winder 11/16/23 documented as of this encounter
--- OUTSIDE RECORDS SUMMARY | 2025-07-31 22:16 | XMS_ITS | Encounter Summary ---
Author Organization [employer] Address 75 [facility] 7t [place] [address] Care Team Providers Care Oracle Brm Developer Name Role Phone Cheryl Fitzpatrick MD Primary Care Provider + Nick Castellanos Unavailable Unavailable Reason for Visit * Reason Onset Date Comments PT-1 10/22/2024 Encounter Details Date Type Department Care Team (Late st Contact Info) Description 10/22/2024 Telephone [facility] MEDICINE [address] [place] [address] [phone] Cheryl Fitzpatrick MD 230 [place], [place] [phone] PT-1 (/) Social History Tobacco Use Types [...] Y/N: Yes Provider name or facility name: [facility] Escort needed: Do you have a wheelchair: Y/N: No If yes- Manual or electric: Visits: (5 x Mothly) Patient calling requesting PT1 Home Address verified: Y/N: Yes Provider name or facility name: [facility], [address] [place] [address] Escort needed: Y/N: No Do you have a wheelchair: Y/N: No If yes- Manual or electric: Visits: (5 x Monthly) Patient calling requesting PT1 Home Address verified: Yes Provider name or facility name: [facility], [address] [facility], [place] [address] Escort needed: Y/N: No Do you have a wheelchair: Y/N: No If yes- Manual or electric: Visits: (2 x Monthly) documented in this encounter Plan of Treatment Upcoming Encounters Date Type Department Care Team (Late st Contact Info) Description 08/27/2025 10:30 AM EST Office Visit [facility] 230 [place] [address] Cheryl Fitzpatrick MD [address] [place] [address] documented as of this encounter Goals Goal [...] documented as of this encounter Care Teams Oracle Brm Developer Relationship Specialty Start Date End Date Cheryl Fitzpatrick MD [address] [place] [address] PCP - General Internal Medicine 09/10/22 Nick Castellanos FNP [address] [place] [address] Nurse Practitioner Family Medicine 07/04/23 Apolonia Mars career guidance counselor Travel AgentBoot Turner 11/16/23 documented as of this encounter
--- OUTSIDE RECORDS SUMMARY | 2025-07-31 22:16 | XMS_ITS | Encounter Summary ---
Author Organization [employer] Address 75 [facility] 7t [place] [address] Care Team Providers Care Pace Analyst Name Role Phone Cheryl Fitzpatrick MD Primary Care Provider + Nick Castellanos Unavailable Unavailable Reason for Visit * Reason Onset Date Comments PT1 11/19/2024 Encounter Details Date Type Department Care Team (Late st Contact Info) Description 11/19/2024 Telephone [facility] 230 [place], [place] [phone] Cheryl Fitzpatrick MD 230 [place], [place] [phone] PT1 Social History Tobacco Use Types Packs/Day [...] Yes Provider name or facility name: 230 [place] [address]. [facility] Escort needed: Y/N: No Do you have a wheelchair: Y/N: No Cane If yes- Manual or electric: N/A Visits: (5x monthly) 2 of 4 Patient calling requesting PT1 Home Address verified: Y/N: Yes Provider name or facility name: [address] [place] [address] - [facility] Escort needed: Y/N: No Do you have a wheelchair: Y/N: No Cane If yes- Manual or electric: N/A Visits: (2x monthly) 3 of 4 Patient calling requesting PT1 Home Address verified: Y/N: Yes Provider name or facility name: [address] [place] [address] - [facility] Escort needed: Y/N: No Do you have a wheelchair: Y/N: No Cane If yes- Manual or electric: N/A Visits: (2x monthly) 4 of 4 Patient calling requesting PT1 Home Address verified: Y/N: Yes Provider name or facility name: [address] [facility] [place] [address] [facility] Escort needed: Y/N: No Do you have a wheelchair: Y/N: No Cane If yes- Manual or electric: N/A Visits: (7x monthly) documented in this encounter Plan of Treatment Upcoming Encounters Date Type Department Care Team (Late st Contact Info) Description 08/27/2025 10:30 AM EST Office Visit [facility] 230 [place] [address] Cheryl Fitzpatrick MD 230 [place] [address] documented as of this encounter Goals Goal [...] documented as of this encounter Care Teams Pace Analyst Relationship Specialty Start Date End Date Cheryl Fitzpatrick MD [address] [place] [address] PCP - General Internal Medicine 09/10/22 Nick Castellanos FNP [address] [place] [address] Nurse Practitioner Family Medicine 07/04/23 Apolonia Mars career transition specialist Mammography SupervisorPricing Consultant 11/16/23 documented as of this encounter
--- OUTSIDE RECORDS SUMMARY | 2025-07-31 22:16 | XMS_ITS | Encounter Summary ---
Author Organization [employer] Address 75 [facility] 7t [place] [address] Care Team Providers Care Cooper Apprentice Name Role Phone Cheryl Fitzpatrick MD Primary Care Provider + Nick Castellanos Unavailable Unavailable Reason for Visit * Reason Onset Date Comments pt1 06/19/2025 Encounter Details Date Type Department Care Team (Late st Contact Info) Description 06/19/2025 Telephone [facility] MED[facility]INE 230 [place], [place] [phone] Cheryl Fitzpatrick MD 230 [place], [place] [phone] pt1 Social History Tobacco Use Types Packs/Day [...] Y/N: Yes Provider name or facility name: [facility] [address] [facility] [address] Escort needed: Y/N: No Do you have a wheelchair: Y/N: No If yes- Manual or electric: Visits: 5x Patient calling requesting PT1 Home Address verified: Y/N: Yes Provider name or facility name: [facility] [address] [facility] [address] Escort needed: No Do you have a wheelchair: Y/N: No If yes- Manual or electric: Visits: 6x Patient calling requesting PT1 Home Address verified: Y/N: Yes Provider name or facility name: [address] [place] [address] Escort needed: Y/N: No Do you have a wheelchair: Y/N: No If yes- Manual or electric: Visits: 3x documented in this encounter Plan of Treatment Upcoming Encounters Date Type Department Care Team (Late st Contact Info) Description 08/27/2025 10:30 AM EST Office Visit [facility] MED[facility]INE 230 [place] [address] Cheryl Fitzpatrick MD 230 [place] [address] documented as of this encounter Goals Goal [...] documented as of this encounter Care Teams Cooper Apprentice Relationship Specialty Start Date End Date Cheryl Fitzpatrick MD [address] [place] [address] PCP - General Internal Medicine 09/10/22 Nick Castellanos FNP [address] [place] [address] Nurse Practitioner Family Medicine 07/04/23 Apolonia Mars intensive care medicine specialist Four Slide Machine OperatorScraper Burrer 11/16/23 documented as of this encounter
--- OUTSIDE RECORDS SUMMARY | 2025-07-31 22:16 | XMS_ITS | Encounter Summary ---
Author Organization [employer] Address 75 [facility] 7t [place] [address] Care Team Providers Care Tile Grader Name Role Phone Cheryl Fitzpatrick MD Primary Care Provider + Nick Castellanos Unavailable Unavailable Reason for Visit * Reason Comments Med Refill Encounter Details Date Type Department Care Team (Late st Contact Info) Description 09/29/2023 Refill [facility] MEDICINE [address] [place], [place] [phone] Cheryl Fitzpatrick MD 230 [place] [address] Anxiety; Migraine with aura and without status [...] 08/27/2025 10:30 AM EST Office Visit [facility] MEDICINE [address] [place] [address] Cheryl Fitzpatrick MD 230 [place] [address] documented as of this encounter Goals Goal [...] documented as of this encounter Care Teams Tile Grader Relationship Specialty Start Date End Date Cheryl Fitzpatrick MD 230 [place] [address] PCP - General Internal Medicine 09/10/22 Nick Castellanos FNP [address] [place] [address] Nurse Practitioner Family Medicine 07/04/23 [address] Belly Packer 11/11/23 02/10/24 Apolonia Mars pet care technician Belly PackerTentering Machine Off Bearer 11/16/23 documented as of this encounter
--- OUTSIDE RECORDS SUMMARY | 2025-07-31 22:16 | XMS_ITS | Encounter Summary ---
Author Organization [employer] Address 75 [facility] 7t [place] [address] Care Team Providers Care Ground Surveillance Systems Operator Name Role Phone Cheryl Fitzpatrick MD Primary Care Provider + Nick Castellanos Unavailable Unavailable Reason for Visit * Reason Onset Date Comments Paperwork/Forms 10/19/2023 Encounter Details Date Type Department Care Team (Late st Contact Info) Description 10/19/2023 Telephone [facility] MEDICINE [address] [place] [address] [phone] Cheryl Fitzpatrick MD 230 [place], [place] [phone] Paperwork/Forms Social History Tobacco Use Types Packs/Day [...] to welfare before they close her case. Supervisor Refractory Products advised pt she has an appointment this Tuesday (10/19) with provider. Please contact pt at [phone] (Mosotho) documented in this encounter Plan of Treatment Upcoming Encounters Date Type Department Care Team (Late st Contact Info) Description 08/27/2025 10:30 AM EST Office Visit [facility] MED[facility]INE 230 [place] [address] Cheryl Fitzpatrick MD [address] [place] [address] documented as of this encounter Goals Goal [...] documented as of this encounter Care Teams Ground Surveillance Systems Operator Relationship Specialty Start Date End Date Cheryl Fitzpatrick MD [address] [place] [address] PCP - General Internal Medicine 09/10/22 Nick Castellanos FNP [address] [place] [address] Nurse Practitioner Family Medicine 07/04/23 [address] Gauger Delivery 11/11/23 02/10/24 Apolonia Mars rn progressive care unit Gauger DeliveryThermostat Machine Tender 11/16/23 documented as of this encounter
--- OUTSIDE RECORDS SUMMARY | 2025-07-31 22:16 | XMS_ITS | Encounter Summary ---
Author Organization [employer] Address 75 [facility] 7t [place] [address] Care Team Providers Care Animal Doctor Name Role Phone Cheryl Fitzpatrick MD Primary Care Provider + Nick Castellanos Unavailable Unavailable Reason for Visit * Reason Onset Date Comments PT1 03/15/2024 Encounter Details Date Type Department Care Team (Late st Contact Info) Description 03/15/2024 Telephone [facility] MEDICINE 230 [place], [place] [phone] Cheryl Fitzpatrick MD 230 [place], [place] [phone] PT1 Social History Tobacco Use Types Packs/Day [...] states is homeless and is currently at [address] [place] [address] Provider name or facility name: [facility] Facility Address: [address] [place] [address] Escort needed: Y/N: No Do you have a wheelchair: Y/N: No If yes- Manual or electric: no Visits: 5-6 visit a month documented in this encounter Plan of Treatment Upcoming Encounters Date Type Department Care Team (Late st Contact Info) Description 08/27/2025 10:30 AM EST Office Visit [facility] MEDICINE 230 [place] [address] Cheryl Fitzpatrick MD [address] [place] [address] documented as of this encounter Goals Goal [...] documented as of this encounter Care Teams Animal Doctor Relationship Specialty Start Date End Date Cheryl Fitzpatrick MD [address] [place] [address] PCP - General Internal Medicine 09/10/22 Nick Castellanos FNP [address] [place] [address] Nurse Practitioner Family Medicine 07/04/23 Apolonia Mars home health care case manager Material Handling Warehouse SupervisorResearch Environmental Scientist 11/16/23 documented as of this encounter
--- OUTSIDE RECORDS SUMMARY | 2025-07-31 22:16 | XMS_ITS | Encounter Summary ---
Author Organization [employer] Address [address] [facility] [address] [place] [address] Care Team Providers Care Contour Path Tape Mill Operator Name Role Phone Cheryl Fitzpatrick MD Primary Care Provider + Edu Leung PharmD Unavailable [phone] Nick Castellanos TELEMARKETING MANAGER Unavailable Unavailable Reason for Visit * Reason Onset Date Comments call back 10/05/2022 Encounter Details Date Type Department Care Team (Late st Contact Info) Description 10/05/2022 Telephone [facility] [address] [place] [address] [phone] Cheryl Fitzpatrick MD [address], [place] [phone] call back Social History Tobacco Use Types [...] [facility] [address] [place] [phone] Cheryl Fitzpatrick MD [address] [place] [phone] documented as of this encounter Visit Diagnoses Not on filedocumented in this encounter Additional Health Concerns Assessment Noted Time PHQ-9 Depression Total Score: 19 023 9:39 AM EST documented as of this encounter Care Teams Contour Path Tape Mill Operator Relationship Specialty Start Date End Date Cheryl Fitzpatrick MD [address] [place] [phone] PCP - General Internal Medicine 09/10/22 Edu Leung, HudsonD [address] [place] [address] Pharmacist Internal Medicine 06/14/23 06/28/23 Nick Castellanos FNP [address] [place] [id number] Nurse Practitioner Family Medicine 07/04/23 Court Shay Senior Software Analyst 11/11/23 02/10/24 Apolonia Mars district manager primary care sales Senior Software AnalystTransport Truck Driver 11/16/23 documented as of this encounter
--- OUTSIDE RECORDS SUMMARY | 2025-07-31 22:16 | XMS_ITS | Encounter Summary ---
Author Organization [employer] Address [address] [facility] [address] [place] [address] Care Team Providers Care Freelance Court Reporter Name Role Phone Cheryl Fitzpatrick MD Primary Care Provider + Nick Castellanos Unavailable Unavailable Reason for Visit * Reason Onset Date Comments Created in error 03/20/2024 Encounter Details Date Type Department Care Team (Late st Contact Info) Description 03/20/2024 Telephone [facility] [address] [place] [address] [phone] Cheryl Fitzpatrick MD [address] [place], [place] [phone] Created in error Social History Tobacco Use [...] Description 08/27/2025 10:30 AM EST Office Visit [facility] [address] [place] [address] Cheryl Fitzpatrick MD [address] [place] [address] documented as of this encounter Goals Goal [...] documented as of this encounter Care Teams Freelance Court Reporter Relationship Specialty Start Date End Date Cheryl Fitzpatrick MD [address] [place] [address] PCP - General Internal Medicine 09/10/22 Nick Castellanos FNP [address] [place] [address] Nurse Practitioner Family Medicine 07/04/23 Apolonia Mars career guidance technician Steam Meter ReaderManager Educational 11/16/23 documented as of this encounter
--- OUTSIDE RECORDS SUMMARY | 2025-07-31 22:16 | XMS_ITS | Encounter Summary ---
Author Organization [employer] Address [address] [facility] [address] [place] [address] Care Team Providers Care Rock Lather Name Role Phone Cheryl Fitzpatrick MD Primary Care Provider + Nick Castellanos Unavailable Unavailable Reason for Visit * Reason Comments Med Refill Encounter Details Date Type Department Care Team (Late st Contact Info) Description 09/29/2023 Refill [facility] [address] [place] [address] Nick Castellanos FNP Type 2 diabetes mellitus with hyperglycemia, with long-term current use of insulin ([facility]) Social History Tobacco Use Types Packs/Day [...] Office Visit [facility] [address] [place] [address] Cheryl Fitzpatrick MD [address] [place] [address] documented as of this encounter Goals Goal [...] documented as of this encounter Care Teams Rock Lather Relationship Specialty Start Date End Date Cheryl Fitzpatrick MD [address] [place] [address] PCP - General Internal Medicine 09/10/22 Nick Castellanos FNP [address] [place] [address] Nurse Practitioner Family Medicine 07/04/23 Court Shay Associate Property Manager 11/11/23 02/10/24 Apolonia Mars administrator health care facility Associate Property ManagerGraphic Art Technician 11/16/23 documented as of this encounter
--- OUTSIDE RECORDS SUMMARY | 2025-07-31 22:16 | XMS_ITS | Clinical Summary ---
Author Organization [employer] Address [address] [place] [address] Care Team Providers Care Systems Consultant Name Role Phone Ingrid Wolfe MD Primary Care Provider + Nick Castellanos AVIAN KEEPER Unavailable Unavailable Allergies Active Allergy Reactions Criticality [...] hyperglycemia, with long-term current use of insulin ([facility]),Anxiety Take 1 tablet (300 mg) by mouth in the morning. Do not crush, chew, or split. 90 tablet 3 024 Active clonazePAM (KlonoPIN) 2 MG tabletIndicatio ns:Type 2 diabetes mellitus with hyperglycemia, with long-term current use of insulin ([facility]) Take 1 tablet (2 mg) by mouth every 8 (eight) hours. 84 tablet 5 024 Active QUEtiapine (SEROquel) 300 MG tabletIndicatio ns:Type 2 diabetes mellitus with hyperglycemia, with long-term current use of insulin ([facility]) Take 0.5 tablets (150 mg) by mouth in the morning AND 2 tablets (600 mg) at bedtime. 225 tablet 3 024 Active traZODone (Desyrel) 100 MG tabletIndicatio ns:Type 2 diabetes mellitus with hyperglycemia, with long-term current use of insulin ([facility]),Anxiety TAKE 2 TABLET BY MOUTH QHS 180 [...] hyperglycemia, with long-term current use of insulin ([facility]) INJECT 72 UNITS SUBCUTANEOUSLY EVERY EVENING 30 mL 7 024 Active insulin lispro (HumaLOG) 100 UNIT/ML injectionIndica tions:Type 2 diabetes mellitus with hyperglycemia, with long-term current use of insulin ([facility]),Anxiety INJECT 10 UNITS SUBCUTANEOUSLY BEFORE MEALS 15 mL 7 Active TRUEplus Lancets 33G miscIndications :Type 2 diabetes mellitus with hyperglycemia, with long-term current use of insulin (HCC),Anxiety TEST BLOOD SUGAR BEFORE MEALS AND SNACKS AND BEFORE BEDTIME 100 each 11 Active Pentips Generic Pen Tatum 32G X 4 MM miscIndications :Type 2 diabetes mellitus with hyperglycemia, with long-term current use of insulin ([facility]),Anxiety USE FOUR TIMES DAILY 100 each 025 [...] Active Continuous Glucose Sensor (Dexcom G7 Sensor) [facility] Active cyclobenzaprine (Flexeril) 10 MG tablet Take [...] hyperglycemia, with long-term current use of insulin ([facility]) USE DIRECTED TO TEST BLOOD SUGAR [...] hyperglycemia, with long-term current use of insulin ([facility]) TAKE 1 TABLET BY MOUTH EVERY MORNING 30 tablet 3 025 Active lidocaine-prilo eloy (Emla) 2.5-2.5 % cream Apply topically every 12 (twelve) hours if needed for mild pain. 30 g 1 025 2024 Discontinued Jardiance 25 MGIndications:T ype 2 diabetes mellitus with hyperglycemia, with long-term current use of insulin ([facility]) TAKE 1 TABLET BY MOUTH EVERY MORNING 30 tablet 3 025 2024 Discontinued Active Problems Problem Noted [...] life style modifications, diet and referral to operations staff specialist security. Recommended to decrease soda and sugary beverage [...] life style modifications, diet and referral to operations staff specialist security. Recommended to decrease soda and sugary beverage [...] (10/21/2023 11:33 AM EST): Seen recently by joiners supervisor, fu every 6 m A1c is improving but not at goal, FU with vacuum drum drier operator (I gave pt phone number to schedule appointment, I will refer to case resource manager to support her to keep her appointment) No change in medication and fu with vacuum drum drier operator Papilloma 06/24/2023 Retained dental root 05/18/2023 Major [...] Psychiatric medications were [place] provider in [place], with high-dose Clonazepam. She previously experienced severe [...] will be referred to new [facility] pyschiatric prescriber. She gives verbal permission to [...] Any issues or concerns, contact [facility]. All her questions were answered and I [...] Psychiatric medications were started by provider in [place], with high-dose Clonazepam. She previously experienced severe [...] Psychiatric medications were started by provider in [place], with high-dose Clonazepam. She previously experienced severe [...] letters and forms, she should F/U with [facility] Medical Records. It is clear she would [...] Psychiatric medications were started by provider in [place], with high-dose Clonazepam. She previously experienced severe [...] Psychiatric medications were started by provider in [place], with high-dose Clonazepam. She previously experienced severe [...] her room will be given to the [id number], and pt anticipates becoming homeless. Has been [...] her room will be given to the [id number], and pt anticipates becoming homeless. Has been [...] difficult for her to access [facility] every week fu with neurology next month Housing instability, currently housed 02/17/2023 Assessment & Plan (05/06/2023 1:51 PM EDT): Has to leave her daughter's home in 30d Will refer to [facility] to help her in the process of finding a room or jail I suggested to place her cat with the [facility] shelters for cats, at least temporarily while [...] daughter's home in 30d Will refer to [facility] to help her in the process of finding a room or jail I suggested to place her cat with the [facility] shelters for cats, at least temporarily while [...] and arguments with her daughters I provided jail information and she will follow up with [...] clinician will complete referral for psychopharmacology at [facility]. Clinician educated patient on coping skills including [...] and supports PLAN: 1. Follow up with [facility]: Not recommended for follow-up 2. Patient goal is to established psychiatry service 3. Behavioral Recommendations a. Patient will continue to comply with medication b. Patient will utilze new coping skills c. Patient will reach out to a [facility], if needed Assessment & Plan (01/06/2023 12:01 [...] last pill. Pt to be seen by CONSULTING SERVICES PROJECT MANAGER nurse. Pt agreed to be referred to pill boxes. Assessment & Plan (12/21/2022 3:44 PM EDT): Patient has not received fu appt from counselor within the past month, she cant travel to [place], would like it all within the same area ([place] or [facility]) I will refer to our service and continue same meds. Assessment & Plan (11/15/2022 11:55 AM EDT): continue Wellbutrin and Seroquel for now continue to fu closely with psychotherapist she will tow picker prescription for clonazepam today and discussed with her about requesting refill through [employer]t at least 3 days prior to last [...] yet. Advised to continue to follow-up with vacuum drum drier operator in 2 weeks, she definitely would benefit [...] meals, avoid long periods of fasting. FU [facility] endocrinology next mo Assessment & Plan (10/09/2024 3:58 PM EST): Uncontrolled, she needs appointment with vacuum drum drier operator. Start Mounjaro 2.5 mg and FU in 4 weeks to assess tolerance, I told her she needs to r/s appointment with vacuum drum drier operator. Continue Tresiba 72 units + Humalog TID ac meals + Jardiance. I discuss with her the importance of having small infraction meals, avoid long periods of fasting. Assessment & Plan (07/17/2024 1:23 PM EST): Uncontrolled. Pt to FU with endocrinology in 3 days. Assessment & Plan (04/25/2024 3:30 PM EDT): A1c is improving, not at goal. Continue to follow up closely with vacuum drum drier operator team. No change in medications. Assessment & [...] and FU closely with DM educator an vacuum drum drier operator clinic Counseled re more frequent low calorie/carb meals. Encouraged physical activity as tolerated. FU in 3 months Coulsened to have Covid booster LULÚ Assessment & Plan (06/10/2023 11:36 AM EDT): Uncontrolled Counseled to use Humalog prior to each meal, she has sofia with endo scheduled on 06/22/23 at 1:30 at [facility] endo, information given to pt and reminded [...] finding adequate food, counseled to go to [employer] to use HIP program. Needs to rs endocrinology appt, info given Assessment & Plan (03/24/2023 1:42 PM EDT): A1C is uncontrolled, getting worse unclear if related to seroquel and poor adherence to diet increase tresiba to 55 units per day and continue humalog start jardiance 25 mg and fu in 4-6 weeks new referral to vacuum drum drier operator as local vacuum drum drier operator is not accepting new patients Counseled re [...] before breakfast and dinner and refer to vacuum drum drier operator Assessment & Plan (12/21/2022 10:23 AM EDT): [...] starts seeing psychiatrist Has an appointment with agricultural agent fu in 2 months Assessment & Plan [...] smoking, use nicotine gum prn Pituitary adenoma ([facility]/HCC) 10/17/2023 12/07/2024 Assessment & Plan (12/07/2024 2:45 [...] clinician will complete referral for psychopharmacology at [facility]. Clinician educated patient on coping skills including [...] and supports PLAN: 1. Follow up with [facility]: Not recommended for follow-up 2. Patient goal is to established psychiatry service 3. Behavioral Recommendations a. Patient will continue to comply with medication b. Patient will utilze new coping skills c. Patient will reach out to a [facility], if needed Left foot pain 10/01/2022 02/21/2025 [...] Wellbutrin and Seroquel daily Refer to [facility] Pt has crisis number and is able to contract for safety. Encounters * This document contains information received from the source organization and may not represent a complete record from that organization. Date Type Department Care Team Description 07/12/2025 Orders Only [facility] External Provider, [facility] 07/11/2025 Patient Outreach [facility] [address] [place] [address] Ingrid Wolfe MD Care Coordination ([facility] outreach for SDOH PT-1 and food needs-referral completed /) 07/11/2025 Telephone [facility] [address] [place] [phone] Ingrid Wolfe MD PT1 07/09/[address] [address] [address] Cordova RN Clonazepam request 07/09/[address] [address] Ingrid Wolfe MD Med Refill 07/07/2025 Refill [facility] [address] [place] [phone] Ingrid Wolfe MD Type 2 diabetes mellitus with hyperglycemia, with long-term current use of insulin (HCC) 07/05/2025 Refill [facility] [address] [place] [phone] Ingrid Wolfe MD 06/27/2025 9:00 AM EST Office Visit [facility] OPTOM[facility] [address] [place] [address] Salena Garcia, OD Type 2 diabetes mellitus without ophthalmic manifestations (HCC) (Primary Dx); Cyst of left lower eyelid; Combined forms of age-related cataract of both eyes; Strabismic amblyopia, left eye; Dry eyes; Regular astigmatism of both eyes with presbyopia 06/27/[address] [address] Ingrid Wolfe MD August06/27/2025 Travel 06/19/2025 Patient Outreach [address] [address] Ingrid Wolfe MD Care Coordination ([facility] outreach for SDOH PT-1 and food needs-referral completed /) 06/19/[address] [address] Ingrid Wolfe MD pt1 06/14/2025 Refill [facility] [address] [place] [phone] Ingrid Wolfe MD Migraine with aura and without status migrainosus, not intractable 06/08/2025 Refill [facility] [address] [facility] [place] [address] Ingrid Wolfe MD Mild intermittent asthma with exacerbation 05/20/2025 Orders Only GENERIC EXTERNAL DATA DEPARTMENT Provider, Generic External Data 05/14/2025 Refill [facility] [address] [facility] [place] [address] Ingrid Wolfe MD Primary hypertension from Last 3 Months Immunizations Immunization Administration [...] got money to buy more: Sometimes True 11/27/ 2024 Within the past 12 months,th e food [...] 10:30 AM EST Office Visit [facility] [address], [place] [phone] Ingrid Wolfe MD [address] [place] [address] Health Maintenance Due Date Last Done Comments [...] 8.2( 10:41 AM EDT) No Kenzie Antunez, Merari Help patients manage their type 2 diabetes [...] disease No Court Cordova, RN Patient has diabetic eye disease Care Plan Patient has diabetic eye disease No Court Cordova RN Patient has diabetic eye disease Care Plan Patient has diabetic eye disease No Court Cordova RN Patient has chronic kidney disease Care Plan Patient has chronic kidney disease No Court Cordova, RN Patient has [...] Plan Patient has chronic kidney disease No Mary Oliviaana Patient has chronic kidney disease Care Plan Patient has chronic kidney disease No Leslee Olivia Patient has chronic kidney disease Care Plan Patient has chronic kidney disease No Leslee Olivia Procedures Procedure Name Priority Date/Time Associated Diagnosis Comments US ABDOMEN BARAHONA W ELASTOGRAPHY Routine 07/12/2025 9:49 AM EST VITAMIN D 25-OH (D2 AND D3) Routine 05/20/2025 9:50 AM EDT TISSUE TRANSGLUTAMINASE AB, IGG Routine 05/20/2025 9:50 AM EDT VITAMIN B12/FOLATE, SERUM PANEL Routine 05/20/2025 9:50 AM EDT TSH W/REFLEX TO FT4 Routine 05/20/2025 9 :50 AM EDT BI MAMMOGRAM DIAGNOSTIC TOMOSYNTHESIS BILATERAL [...] Recently Relevant to Health Maintenance Results * US ABDOMEN BARAHONA W ELASTOGRAPHY (07/12/2025 9:49 AM EST) Anatomical Region Laterality Modality Abdomen Ultrasound 07/12/2025 9:49 AM EST Narrative 07/12/2025 10:17 AM EST [place] [address] Ultrasound Report Signed Patient: Lizet Cash MR# : [id number] : 1975 Acct:[id number] Age/Sex: 49 / F ADM Date: 07/12/25 Loc: HO.US Attending Dr: Rachel Gardner AVIAN KEEPER- Ordering Physician: Rachel Gardner [facility]- Date of Service: 07/12/25 Procedure(s): US abdomen barahona w elastography Accession Number(s): [id number] cc: Ingrid Wolfe MD; Rachel Gardner [facility]- Reason for Exam: K76.0 - Fatty (change of) liver, not elsewhere classified EXAMINATION: US ABDOMEN LIMITED WITH LIVER ELASTOGRAPHY HISTORY: K76.0 - Fatty (change of) liver, not elsewhere classified TECHNIQUE: Real-time grayscale ultrasound imaging of the right upper quadrant was performed and images were reviewed. COMPARISON: Comparison is made with the prior examination dated 02/04/2025. FINDINGS: Liver: The right lobe of the liver measures 15.8 cm in size. The left lobe of the liver measures 11.2 cm in size. The liver demonstrates increased echotexture, consistent with steatosis. Again seen is a 1.3 x 1.8 x 1.6 cm echogenic mass in the right lobe which likely represents a hemangioma. No intrahepatic biliary ductal dilatation is identified. There is normal hepatopedal flow in the portal vein. Ultrasound elastography of the liver was performed with 10 separate measurements of the liver parenchyma with the patient in the supine position. Measurements were obtained approximately 2 cm below Sherry's capsule and perpendicular to the capsule. The median shear wave velocity is 0.88 m/s. The interquartile range/median (IQR/median) is 0.15. Gallbladder and biliary tree: The gallbladder is unremarkable, without evidence of calculi, wall thickening, or pericholecystic fluid. There is no sonographic Vivar sign. The common bile duct is normal in caliber measuring 3 mm. Right Kidney: The right kidney measures 13.6 cm in length. There is mild fullness of the renal pelvis. No masses or calculi are identified. Pancreas: The pancreatic head, neck, and body are unremarkable. The pancreatic tail is obscured by bowel gas. Abdominal aorta and inferior vena cava: The visualized portions of the abdominal aorta and inferior vena cava are normal in caliber. There is no free fluid in the right upper quadrant. US/US abdomen barahona w elastography IMPRESSION: Hepatic steatosis. The median shear wave velocity in the liver is 0.88 m/s, corresponding to a median liver stiffness of 2.3 kPa. The IQR/median value is 0.15. This is indicative of a quality data set. Findings are indicative of a normal elastography value with a low likelihood of severe fibrosis or cirrhosis. REFERENCE: Society of Radiologists in Ultrasound Liver Stiffness Thresholds (2020): LIVER STIFFNESS THRESHOLDS: *Shear wave velocity less than 1.3 m/s (Liver Stiffness equal or less than 5 kPa): High probability of being normal. *Shear wave velocity less than 1.7 m/s (Liver Stiffness less than 9 kPa): In the absence of other known clinical signs, rules out compensated advanced chronic liver disease. *Shear wave velocity between 1.7-2.1 m/s (Liver Stiffness 9-13 kPa): Suggestive of compensated advanced chronic liver disease but need further test for confirmation. *Shear wave velocity between 2.1-2.4 m/s (Liver Stiffness 13-17 kPa): Rules in compensated advanced chronic liver disease. *Shear wave velocity greater than 2.4 m/s (Liver Stiffness over 17 kPa): Suggestive of clinically significant portal hypertension. QUALITY OF DATA SET: *IQR/Median value equal or less than 0.30 implies a quality data set. *IQR/Median value over 0.30 implies a poor quality data set. SIGNIFICANT CHANGE FROM PRIOR EXAM: Significant change if liver stiffness measurement is 10% or greater from prior exam. OTHER CONSIDERATIONS: The stage of liver fibrosis may be overestimated in the setting of acute hepatitis, liver inflammation, elevated liver function tests, hepatic vascular congestion, obstructive cholestasis, non-fasting state, and infiltrative diseases such as amyloidosis and lymphoma. In some patients with NAFLD, the liver stiffness thresholds for compensated advanced chronic liver disease may be lower. In causes other than viral hepatitis and NAFLD, liver stiffness thresholds are not well established. Electronically signed by: Marcus Guerra MD 07/12/2025 10:14 AM EST Dictated By: Marcus Guerra MD Signed By: <Electronically signed by Marcus Guerra MD in [place]> 07/12/25 1014 DD/ 0949 TD/TT: 07/12/25 1000 Lining Cutter: Procedure Note Donotuseinterpreter, Image - 07/12/2025 [place] [address] Ultrasound Report Signed Patient: Augusto Cash# : [id number] : 1975Acct:[id number] Age/Sex: 49 / FADM Date: 07/12/25 Loc: HO.US Attending Dr: Rachel BELL Ordering Physician: Rachel Gardner Date of Service: 07/12/25 Procedure(s): US abdomen barahona w elastography Accession Number(s): [id number] cc: Ingrid Wolfe MD; Rachel Gardner Reason for Exam: K76.0 - Fatty (change of) liver, not elsewhereclassified EXAMINATION: US ABDOMEN LIMITED WITH LIVER ELASTOGRAPHY HISTORY: K76.0 - Fatty (change of) liver, not elsewhere classified TECHNIQUE: Real-time grayscale ultrasound imaging of the right upper quadrant was performed and images were reviewed. COMPARISON: Comparison is made with the prior examination dated 02/04/2025. FINDINGS: Liver: The right lobe of the liver measures 15.8 cm in size. The left lobe of the liver measures 11.2 cm in size. The liver demonstrates increased echotexture, consistent with steatosis. Again seen is a 1.3 x 1.8 x 1.6 cm echogenic mass in the right lobe which likely represents a hemangioma. No intrahepatic biliary ductal dilatation is identified. There is normal hepatopedal flow in the portal vein. Ultrasound elastography of the liver was performed with 10 separate measurements of the liver parenchyma with the patient in the supine position. Measurements were obtained approximately 2 cm below Sherry's capsule and perpendicular to the capsule. The median shear wave velocity is 0.88 m/s. The interquartile range/median (IQR/median) is 0.15. Gallbladder and biliary tree: The gallbladder is unremarkable, without evidence of calculi, wall thickening, or pericholecystic fluid. There is no sonographic Vivar sign. The common bile duct is normal in caliber measuring 3 mm. Right Kidney: The right kidney measures 13.6 cm in length. There is mild fullness of the renal pelvis. No masses or calculi are identified. Pancreas: The pancreatic head, neck, and body are unremarkable. The pancreatic tail is obscured by bowel gas. Abdominal aorta and inferior vena cava: The visualized portions of the abdominal aorta and inferior vena cava are normal in caliber. There is no free fluid in the right upper quadrant. US/US abdomen barahona w elastography IMPRESSION: Hepatic steatosis. The median shear wave velocity in the liver is 0.88 m/s, corresponding to a median liver stiffness of 2.3 kPa. The IQR/median value is 0.15. This is indicative of a quality data set. Findings are indicative of a normal elastography value with a low likelihood of severe fibrosis or cirrhosis. REFERENCE: Society of Radiologists in Ultrasound Liver Stiffness Thresholds (2020): LIVER STIFFNESS THRESHOLDS: *Shear wave velocity less than 1.3 m/s (Liver Stiffness equal or less than 5 kPa): High probability of being normal. *Shear wave velocity less than 1.7 m/s (Liver Stiffness less than 9 kPa): In the absence of other known clinical signs, rules out compensated advanced chronic liver disease. *Shear wave velocity between 1.7-2.1 m/s (Liver Stiffness 9-13 kPa): Suggestive of compensated advanced chronic liver disease but need further test for confirmation. *Shear wave velocity between 2.1-2.4 m/s (Liver Stiffness 13-17 kPa): Rules in compensated advanced chronic liver disease. *Shear wave velocity greater than 2.4 m/s (Liver Stiffness over 17 kPa): Suggestive of clinically significant portal hypertension. QUALITY OF DATA SET: *IQR/Median value equal or less than 0.30 implies a quality data set. *IQR/Median value over 0.30 implies a poor quality data set. SIGNIFICANT CHANGE FROM PRIOR EXAM: Significant change if liver stiffness measurement is 10% or greater from prior exam. OTHER CONSIDERATIONS: The stage of liver fibrosis may be overestimated in the setting of acute hepatitis, liver inflammation, elevated liver function tests, hepatic vascular congestion, obstructive cholestasis, non-fasting state, and infiltrative diseases such as amyloidosis and lymphoma. In some patients with NAFLD, the liver stiffness thresholds for compensated advanced chronic liver disease may be lower. In causes other than viral hepatitis and NAFLD, liver stiffness thresholds are not well established. Electronically signed by: Marcus Guerra MD 07/12/2025 10:14 AM EST Dictated By: Marcus Guerra MD Signed By: <Electronically signed by Marcus Guerra MD in [place]> 07/12/25 1014 DD/ 0949 TD/TT: 07/12/25 1000 Lining Cutter: us [facility] External Provider IMG US PROCEDURES Final Result * VITAMIN D 25-OH (D2 AND D3) (05/20/2025 9:50 AM EDT) Vitamin D, 25-OH, D2 <4 ng/mL [facility] Comment:This test was devhiramo ped and its analytical performancecharacteristics have been determined by [employer] [place], [place]. It hasnot been cleared or approved by the U.S. Food and DrugAdministration. This assay has been validated pursuantto the CLIA regulations and is used for clinicalpurposes.THIS TEST WAS PERFORMED AT:[employer] [place] [address]TUXYXKPLIO GARZA MD,PHD Vitamin D, 25-OH, D3 33 ng/mL [facility] Comment:This test was develo ped and its analytical performancecharacteristics have been determined by [employer] [place], [place]. It hasnot been cleared or approved by the U.S. Food and DrugAdministration. This assay has been validated pursuantto the CLIA regulations and is used for clinicalpurposes. Vitamin D, 25-OH, Total 33 30 - 100 ng/mL [facility] Comment:Vitamin D, 25-Hydrox y reports [...] = 30 ng/mL.For additional information, please refer tohttp://education.360Learning/faq/QUK352(This link is being provided for informational/educational purposes only.) 05/20/2025 9:50 AM EDT 05/20/2025 9:50 AM EDT us Generic External Data Provider LAB BLOOD ORDERAB LES Final Result [facility] [address] [place] [phone] * Vitamin B12 (Cobalamin) and Folate Panel, Serum (05/20/2025 9:50 AM EDT) Vitamin B12 361 200 - 900 pg/mL [facility] Comment:NORMAL 200-900 PG/ML INDETERMINATE 160-199 PG/ML DEFICIENT < 160 PG/ML Folate 11.3 > or = 4.0 ng/mL [facility] Comment:Reference Values:> o r = 4.0 ng/mL< 4.0 ng/mL suggests folate deficiency Methotrexate, aminopterin and folinic acid(leucovorin) are chemotherapeutic agents whose molecularstructures are similar to folate; therefore, the Architectfolate assay cannot be used for patients using these drugs. 05/20/2025 9:50 AM EDT 05/20/2025 9:50 AM EDT Generic External Data Provider LAB BLOOD ORDERAB LES Final Result Performing Organization Address [facility]/ZIP Co de Phone Number [facility] [address] [place] [address] [phone] * TSH with Reflex to Free T4 (05/20/2025 9:50 AM EDT) TSH reflex Free T4 1.30 0.32 - 4.0 uIU/mL [facility] 05/20/2025 9:50 AM EDT 05/20/2025 9:50 AM EDT Generic External Data Provider LAB BLOOD ORDERAB LES Final Result Performing Organization Address [facility] de Phone Number [facility] [address] [place] [phone] * Tissue Transglutaminase (tTG) Antibody (IgG) (05/20/2025 9:50 AM EDT) Tissue Transglutaminase Antibody IgG <1.0 U/mL [facility] Comment:Value Interpretation ----- <15.0 Antibody not detected> or = 15.0 Antibody detectedTHIS TEST WAS PERFORMED AT:[facility] [place] [id number] KO MD 05/20/2025 9:50 AM EDT 05/20/2025 9:50 AM EDT us Generic External Data Provider LAB BLOOD ORDERAB LES Final Result [facility] [address] [facility] [place] [address] [phone] * BI Mammogram Diagnostic Tomosynthesis Bilateral (03/06/2025 12:00 PM EDT) Anatomical Region Laterality Modality Breast Bilateral Mammography 03/06/2025 12:0 0 PM EDT Narrative 03/06/2025 1:55 PM EDT [address] [place], [place] [address] Mammography Report Signed Patient: Lizet Cash MR# : [id number] : 1975 Acct:[id number] Age/Sex: 49 / F ADM Date: 03/06/25 Loc: HO.MAMMO Attending Dr: Ingrid Wolfe MD Ordering Physician: Ingrid Wolfe MD Results: 3.12MProbably Benign Finding - 12 month F/U Suggested Date of Service: 03/06/25 Follow Up: 12 month diagnos tic follow up Procedure(s): MM tomosynthesis diagnostic BI Accession Number(s): [id number] cc: Ingrid Wolfe MD EXAMINATION: MM DIAGNOSTIC [...] 03/06/25 1352 DD/ 1200 TD/TT: 03/06/25 1250 Lining Cutter: Procedure Note Donotuseinterpreter, Image - 03/06/2025 [facility] [address] [place] [address] Mammography Report Signed Patient: Augusto Cash# : [id number] : 1975Acct:[id number] Age/Sex: 49 / FADM Date: 03/06/25 Loc: HO.MAMMO Attending Dr: Ingrid Wolfe MD Ordering Physician: Ingrid Wolfe MD Results: 3.12MProbably Benign Finding - 12 month F/U Suggested Date of Service: 03/06/25Follow Up: 12 month diagnos tic follow up Procedure(s): MM tomosynthesis diagnostic BI Accession Number(s): [id number] cc: Ingrid Wolfe MD EXAMINATION: MM DIAGNOSTIC [...] Perez DO 03/06/2025 01:52 PM EDT RP Workstation: [employer] Dictated By: Winifred Perez DO Signed By: <Electronically signed by Winifred Perez DO in OV> 03/06/25 1352 DD/ 1200 TD/TT: 03/06/25 1250 Lining Cutter: Ingrid Wolfe MD IMG BI PROCEDURES Final Result * (ABNORMAL) POCT HGB A1C (02/21/2025 10:41 AM EDT) Hemoglobin A1C 8.2(A) 4.0 - 5.7 % QC Media Lot # [id number] Lot# Expiration Date ,[id number] Blood 02/21/2025 10:4 1 AM EDT Ingrid Wolfe MD POINT OF CARE TEST ENTER /EDIT ORDERABLES Final Result * (ABNORMAL) Lipid Panel with Reflex to Direct LDL (11/29/2024 8:21 AM EDT) Triglycerides 178(H) <150 mg/dL [facility] Comment:Desirable Triglyceri de: less than 150 mg/dLBorderline High Triglyceride 150-199 mg/dLHigh Triglyceride: 200-499 mg/dLVery High Triglyceride: greater than or equal to 5OO mg/dL Cholesterol 144 <200 mg/dL [facility] Comment:Desirable Cholestero l: less than 200 mg/dLBorderline High Cholesterol: 200-239 mg/dLHigh Cholesterol: greater than 239 mg/dL LDL Cholesterol Calculated 72 <100 mg/dL [facility] Comment:Desirable LDL: less than 100 mg/dLNear Optimal/Above Optimal LDL: 110- 129 mg/dLBorderline High LDL: 130-159 mg/dLHigh LDL: 160-189 mg/dLVery High LDL: greater than or equal to 190 mg/dL HDL Cholesterol 37(L) >40 mg/dL [facility] Comment:Desirable HDL: great er than 40 mg/dL Note: This HDL assay may give artificially low results in patients with liver disease. Blood 11/29/2024 8:21 AM EDT 11/29/2024 11:37 AM EDT us Ingrid Wolfe MD LAB BLOOD ORDERABLES Fin al Result Performing Organization Address [facility] de Phone Number [facility] [address] [place] [phone] * Hepatitis Panel, General (10/04/2024 8:16 AM EST) Hepatitis A IgM Nonreactive Nonreactive [facility] Comment:IgM antibodies to GUILLORY V not detected; does not exclude earlyacute or recovered HAV infection. ~Hepatitis B Surface Antibody REACTIVE Nonreactive [facility] Comment:REACTIVE: > 11.99 mI U/mL Hepatitis B Core Antibody Nonreactive Nonreactive [facility] Hepatitis C Antibody Nonreactive Nonreactive [facility] Comment:Antibodies to HCV no t detected; does not exclude early acuteHCV infection. Hepatitis B Surface Ag Negative Negative [facility] Blood 10/04/2024 8:16 AM EST 10/04/2024 11:15 AM EST Ingrid Wolfe MD LAB BLOOD ORDERABLES Fin al Result Performing Organization Address [facility] Co de Phone Number [facility] [address] [place] [phone] * HIV-1/2 Antigen and Antibodies, Fourth Generation, with Reflexes (10/04/2024 8:16 AM EST) HIV AB/AG Nonreactive Nonreactive [facility] Comment:HIV-1 p24 Ag and/or HIV-1/HIV-2 Ab not detected.A test result that is nonreactive does not exclude thepossibility of exposure to or infection with HIV-1 and/orHIV-2. Nonreactive results in this assay for individualswith prior exposure to HIV-1 and/or HIV-2 may be due toantigen and antibody levels that are below the limit ofdetection of this assay.The XtremeData HIV Ag/Ab Combo assay result andsupplemental assay results should be interpreted inconjunction with the patient's clinical presentation,history and other laboratory results. If the results areinconsistent with clinical evidence, additional testing issuggested to confirm the result. Blood Venous blood specimen / Unknown 10/04/2024 8:16 AM EST 10/04/2024 11:15 AM EST us Ingrid Wolfe MD LAB BLOOD ORDERABLES Fin al Result Performing Organization Address City/[facility]/ZIP Co de Phone Number [facility] [address] [place] [phone] * Albumin, Random Urine W/Creatinine (08/31/2024 2:09 PM EST) Creatinine, Urine 31.14 mg/dL [facility] Microalbumin Urine <5.0 mg/L [facility] Microalbum Creatinine Ratio Ur TNP <30 ug/mg cr [facility] Comment:Unable to calculate albumin/creatinine ratio due to lowmicroalbumin or creatinine result. Urine (Urine, Random) 08/31/2024 2:09 PM EST 08/31/2024 4:00 PM EST us Ingrid Wolfe MD LAB URINE ORDERABLES Fin al Result Performing Organization Address City/[facility]/ZIP Co de Phone Number [facility] [address] [place] [phone] * Pap Smear (12/14/2023 11:23 AM EDT) Swab Cervix uteri structure / Unknown 12/14/2023 11:23 AM EDT 12/14/2023 2:20 PM EDT [facility] - 01/02/2024 11:54 AM EDT ----- ------- Name: Lizet Cash Age/Sex: 48/F : 1975 Unit#: [id number] Attend Dr: Ingrid Wolfe MD Re12/14/23 Status: DEP REF Location: [facility] Disch: ----- ------- SPEC : [id number] RECD: 12/14/231420 STATUS: LATISHA VARELA NUM: [id number] JUANCARLOS: 12/14/23-[address] [facility] DR: Ingrid Wolfe MD ENTERED: 12/14/239767 SP TYPE: Pap Smr OT DR: ORDERED: Pap Smear Interpretation Satisfactory for evaluation. Negative for intraepithelial lesion or malignancy. Clinical Information LMP: Unknown date Previous PAP test: Unknown date/findings Other history: Hx cervical CA 5y ago Material Received ThinPrep-Vaginal/Cervical ----- ------- Signed (signature on file) CLARISA Lu ([facility]) 01/02/24 1154 ----- ------- END OF REPORT Ingrid Wolfe MD LAB CYTOLOGY ORDERABLES Final Result Performing Organization Address [facility]/ZIP Co de Phone Number [facility] [address] [place], [place] [phone] * (ABNORMAL) Hm Colonoscopy (04/27/2023) Colonoscopy Abnormal(A ) Normal [facility] Ingrid Wolfe MD HEALTH MAINTENANCE Final Result Performing Organization Address [facility] Co de Phone Number [facility] [address] [place] [phone] * Image-Guided Pap with Age-Based Screening??with CT/NG,??Trichomonas (11/29/2022 10:52 AM EDT) Comment [employer] Comment: This order for age-based cervical cancer and STI screening follows ACOG guidelines(PB 168, 140, FVE206). See individual assays for performing site location. Clinical Information: HISTORY OF HYST DUE YUSUF [facility] [employer] LMP: NONE GIVEN [facility] [employer] Prev. PAP: YES [facility] [place] [email or web address] Prev. BX: NONE GIVEN [facility] [place] [facility] SOURCE: None given [facility] [place] [email or web address] Statement Of Adequacy: SATISFACTORY FOR EVALUATION [facility] [place] [email or web address] Interpretation/Re sult: Negative for intraepithelial lesion or malignancy. [facility] [place] [email or web address] Comment: This Pap test has been evaluated with computer assisted technology. [facility] [place] [employer] Net Web Application Developer: [employer] [place] [email or web address] Comment: KF, CT(ASCP) CT screening location: [place] [address] Review Net Web Application Developer: [facility] [place] [employer] Comment: BLC,CT(ASCP) CT screening location: [place] [address] (Always Message) Que st [employer] Comment: EXPLANATORY NOTE: The Pap is a [...] HPV nRNA E6/E7 Not Detected Not Detected [employer] Comment: Methodology: Director Of Distance Learning-Mediated Amplification This assay detects E6/E7 viral messenger RNA (mRNA) from 14 high-risk HPV types (16,18,31,33,35,39,45,51,52,56,58,59,66,68). Cervical sources are required for HPV testing. If a vaginal source from a patient who has had a total hysterectomy with removal of cervix was submitted, please contact the testing laboratory for alternative testing options. For additional information, please refer to http://education.[employer]/faq/LBB916e7 (This link if provided for information/ educational purposes only.) Chlamydia trachomatis RNA, TMA, Urogenital NOT DETECTED NOT DETECTED [employer] Neisseria gonorrhoeae RNA, TMA, Urogenital NOT DETECTED NOT DETECTED [employer] Comment [employer] Comment: The analytical performance characteristics of this assay, when used to test SurePath(TM) specimens have been determined by [employer]. The modifications have not been cleared or approved by the FDA. This assay has been validated pursuant to the CLIA regulations and is used for clinical purposes. For additional information, please refer to https://[employer]/faq/RDX072 (This link is being provided for information/ educational purposes only.) Trichomonas vaginalis, QL, TMA, PAP Vial NOT DETECTED NOT DETECTED [employer] Comment: The analytical performance characteristics of this assay have been determined by [employer]. The modifications have not been cleared or approved by the FDA. This assay has been validated pursuant to the CLIA regulations and is used for clinical purposes. For additional information, please refer to http://[employer]/ faq/Trichomonastma (This link is being provided for information/ educational purposes only.) Cytology specimen container (physical object) 11/29/2022 10:52 AM EDT 11/30/2022 12:36 AM EDT Leeann Wood [facility] CYTOLOGY ORDERABLES F inal Result [facility] [address], [place] [address] [employer] [facility] [address] [place] [address] from Last 3 Months or Most Recently [...] Patient has chronic kidney disease 07/11/2025 Insurance [facility] C3 HSN FULL DENTAL-[facility] MEDICAID STAND ADULT Care Teams Systems Consultant Relationship Specialty Start Date End Date Ingrid Wolfe MD [address] [place] [address] PCP - General Internal Medicine 09/10/22 Nick Castellanos FNP [address] [place] [address] Nurse Practitioner Family Medicine 07/04/23 Apolonia Mars home care rn CaseworkerMarine Diver 11/16/23
--- OUTSIDE RECORDS SUMMARY | 2025-07-31 22:16 | XMS_ITS | Encounter Summary ---
Author Organization [employer] Address [address] [facility] 7t [place] [address] Care Team Providers Care Steel Burner Name Role Phone Cheryl Fitzpatrick MD Primary Care Provider + Nick Castellanos Unavailable Unavailable Reason for Visit * Reason Comments Med Refill Encounter Details Date Type Department Care Team (Late st Contact Info) Description 09/29/2023 Refill [facility] [address] [place], [place] [phone] Cheryl Fitzpatrick MD [address] [place] [address] Anxiety; Migraine with aura and without status [...] 10:30 AM EST Office Visit [facility] [address] [place] [address] Cheryl Fitzpatrick MD [address] [place] [address] documented as of this encounter Goals Goal [...] documented as of this encounter Care Teams Steel Burner Relationship Specialty Start Date End Date Cheryl Fitzpatrick MD [address] [place] [address] PCP - General Internal Medicine 09/10/22 Nick Castellanos FNP [address] [place] [address] Nurse Practitioner Family Medicine 07/04/23 Court Shay Area Mechanic 11/11/23 02/10/24 Apolonia Mars memory care program resident Area MechanicAxle Polisher 11/16/23 documented as of this encounter
--- OUTSIDE RECORDS SUMMARY | 2025-07-31 22:16 | XMS_ITS | Encounter Summary ---
Author Organization [employer] Address [address] [facility] 7t [place] [address] Care Team Providers Care Fishing Game Warden Name Role Phone Cheryl Fitzpatrick MD Primary Care Provider + Edu Leung PharmD Unavailable [phone] Nick Castellanos DINING ROOM HOST Unavailable Unavailable Encounter Details Date Type Department Care Team (Late st Contact Info) Description 11/12/2022 Abstract [facility] [address] [place], [place] [phone] Cheryl Fitzpatrick MD [address] [place], [place] [phone] Social History Tobacco Use Types Packs/Day Years [...] Not at all 11/15/2022 10:11 AM [facility] [place] Poor appetite or overeating More [...] 10:30 AM EST Office Visit [facility] [address] [place] [address] Cheryl Fitzpatrick MD [address] [place] [address] documented as of this encounter Visit Diagnoses Not on filedocumented in this encounter Additional Health Concerns Assessment Noted Time PHQ-9 Depression Total Score: 19 023 9:39 AM EST documented as of this encounter Care Teams Fishing Game Warden Relationship Specialty Start Date End Date Cheryl Fitzpatrick MD [address] [place] [address] PCP - General Internal Medicine 09/10/22 Edu Leung, HudsonD [address] [place] [phone] Pharmacist Internal Medicine 06/14/23 06/28/23 Nick Castellanos FNP [address] [place] [address] Nurse Practitioner Family Medicine 07/04/23 Court Shay Search Lead 11/11/23 02/10/24 Apolonia Mars college and career counselor Search LeadTable And Desk Finisher 11/16/23 documented as of this encounter
--- OUTSIDE RECORDS SUMMARY | 2025-07-31 22:16 | XMS_ITS | Encounter Summary ---
Author Organization [employer] Address [address] [facility] 7t [place] [address] Care Team Providers Care Janitor Helper Name Role Phone Cheryl Fitzpatrick MD Primary Care Provider + Edu Leung PharmD Unavailable [phone] Nick Castellanos PHARMACOLOGY TEACHER Unavailable Unavailable Reason for Visit * Reason Onset Date Comments cancelling appt with OS 04/19/2023 Encounter Details Date Type Department Care Team (Late st Contact Info) Description 04/19/2023 Telephone [facility] [address] [place], [place] [phone] Hema Hill DDS [address] [place], [place] [phone] cancelling appt with OS Social History Tobacco [...] to be cancelled. Reached out to oral scheduler conveyor but could not reach her DR documented in this encounter Plan of Treatment Upcoming Encounters Date Type Department Care Team (Late st Contact Info) Description 08/27/2025 10:30 AM EST Office Visit [facility] [address] [place] [address] Cheryl Fitzpatrick MD [address] [place] [address] documented as of this encounter Goals Goal [...] documented as of this encounter Care Teams Janitor Helper Relationship Specialty Start Date End Date Cheryl Fitzpatrick MD [address] [place] [address] PCP - General Internal Medicine 09/10/22 Edu Leung, HudsonD [address] [place] [address] Pharmacist Internal Medicine 06/14/23 06/28/23 Nick Castellanos FNP [address] [place] [address] Nurse Practitioner Family Medicine 07/04/23 [address] Cook Helper 11/11/23 02/10/24 Apolonia Mars wild animal caretaker Cook HelperPermastone Applicator 11/16/23 documented as of this encounter
--- OUTSIDE RECORDS SUMMARY | 2025-07-31 22:17 | XMS_ITS | Encounter Summary ---
Author Organization [employer] Address [address] [facility] 7t [place] [address] Care Team Providers Care Tongue Stitcher Name Role Phone Cheryl Fitzpatrick MD Primary Care Provider + Edu Leung PharmD Unavailable [phone] Nick Castellanos FRONT DESK ADMINISTRATOR Unavailable Unavailable Reason for Visit * Reason Comments Med Refill Encounter Details Date Type Department Care Team (Late st Contact Info) Description 12/09/2022 Refill [facility] [address] [place], [place] [phone] Cheryl Fitzpatrick MD [address] [place], [place] [phone] Type 2 diabetes mellitus with hyperglycemia, with long-term current use of insulin ([facility]); Anxiety Social History Tobacco Use [...] 10:30 AM EST Office Visit [facility] [address] [place] [address] Cheryl Fitzpatrick MD [address] [place] [address] documented as of this encounter Visit Diagnoses Diagnosis Type 2 diabetes mellitus with hyperglycemia, with long-term current use of insulin ([facility]) Anxiety Anxiety state, unspecified documented in this encounter Additional Health Concerns Assessment Noted Time PHQ-9 Depression Total Score: 9 11/16/19 23 10:11 AM EDT documented as of this encounter Care Teams Tongue Stitcher Relationship Specialty Start Date End Date Cheryl Fitzpatrick MD [address] [place] [address] PCP - General Internal Medicine 09/10/22 Edu Leung PharmD [address] [place] [address] Pharmacist Internal Medicine 06/14/23 06/28/23 Nick Castellanos FNP [address] [place] [address] Nurse Practitioner Family Medicine 07/04/23 Court Shay Sports Doctor 11/11/23 02/10/24 Apolonia Mars managed care coordinator Sports DoctorOccupational Therapy Supervisor 11/16/23 documented as of this encounter
--- OUTSIDE RECORDS SUMMARY | 2025-07-31 22:17 | XMS_ITS | Encounter Summary ---
Author Organization [employer] Address [address] [facility] 7t [place] [address] Care Team Providers Care Ore Roaster Name Role Phone Cheryl Fitzpatrick MD Primary Care Provider + Edu Leung PharmD Unavailable [phone] REFEREE Unavailable Unavailable Reason for Visit * Reason Comments Med Refill Encounter Details Date Type Department Care Team (Late st Contact Info) Description 12/18/2022 Refill [facility] [address] [place] [address] Marybel Webster MD [address] [place], [place] [phone] Social History Tobacco Use Types Packs/Day Years [...] Description 08/27/2025 10:30 AM EST Office Visit [facility] [address] [place] [address] Cheryl Fitzpatrick MD [address] [place] [address] documented as of this encounter Visit Diagnoses Not on filedocumented in this encounter Additional Health Concerns Assessment Noted Time PHQ-9 Depression Total Score: 9 11/16/19 10:11 AM EDT documented as of this encounter Care Teams Ore Roaster Relationship Specialty Start Date End Date Cheryl Fitzpatrick MD [address] [place] [phone] PCP - General Internal Medicine 09/10/22 Edu Leung, Merari [address] [place] [phone] Pharmacist Internal Medicine 06/14/23 06/28/23 Nick Castellanos FNP [address] [place] [address] Nurse Practitioner Family Medicine 07/04/23 [address] Cargo Operations Agent 11/11/23 02/10/24 Apolonia Mars pet caretaker Cargo Operations AgentOphthalmic Technologist 11/16/23 documented as of this encounter
== END 2025-07-31 14:34 | disposition home or self-care (01) ==
LOC: HO.HOS 14:15
PROVIDERS: PCP Internal Medicine; Visit Provider Orthopaedic Surgery
DX: M25.311 Other instability, right shoulder (principal)
CPT/HCPCS: 99203

== ENCOUNTER → 2025-07-31 14:14 | Outpatient (BNVA) | payer MEDICAID, SELFPAY | PROVIDERS: PCP Internal Medicine; Visit Provider Orthopaedic Surgery | DX: M25.311 Other instability, right shoulder (principal); M75.41 Impingement syndrome of right shoulder | CPT/HCPCS: 99202 ==

== ENCOUNTER 2025-08-19 10:09 | Outpatient (AMB) | payer MEDICAID, SELFPAY ==
--- NOTE | 2025-08-19 10:15 | A.OFFVIS_ITS ---
Vital Signs 08/19/25 10:24 Height 5 ft 6 in Weight 179 lb BMI 28.9 BP 128/60 Blood Pressure Location Rt brachial Position Sitting Pulse 92 Pulse Source Pulse Oximeter Pulse Oximetry (%) 94 Oxygen Delivery Method Room Air Intake Visit Reasons: 3m Intake Note: Est pt for mgmt of GERD + hepatic hemangioma. Imaging scheduled for September. CC: Pt denies any current GI changes or concerns. She confirms that she has been taking the GI rx as instructed and w/o complication. Breastfeeding Program Coordinator Required: Yes Breastfeeding Program Coordinator Services: Breastfeeding Program Coordinator Present Breastfeeding Program Coordinator Name: [facility] (Provider only) Information Interpreted: clinical only Accompanied by: Self / Same As Patient Allergies dulaglutide (From Trulicity) Allergy (Verified 08/19/25 10:15) Unknown Sulfa (Sulfonamide Antibiotics) Allergy (Verified 08/19/25 10:15) Unknown HPI HPI 3m: Details: LAST VISIT: Dysphagia Chronic GERD Bloating Constipation Postprandial epigastric pain Plan Will order liver elastography to assess fibrosis, upper GI barium swallow for GERD, as well as blood work today. Will order pantoprazole 40mg daily and dulcolax daily. Patient will try to follow a FODMAP diet to help with symptoms. Encourage patient to avoid dietary triggers and late night snacking. Staying upright for minimum 3 hours after meals discussed with patient. Follow up 3 months or sooner if needed.? Patient is agreeable to this plan and verbalizes understanding of instructions. She was given the opportunity to ask questions and all questions answered. ? Thank you for allowing me to participate in her care Orders FL upper GI w air w Ba Swallow Today K21.9 TSH reflex Free T4 Today K59.00 Vitamin B12 and Folate Today R19.7 Transglutaminase Ab IgG Today R10.9 Vitamin D 25-OH (D2 and D3) Today E55.9 US abdomen burnett w elastography Today K76.0 New bisacodyl (Dulcolax (bisacodyl)) 10 mg (2 x 5 mg) PO BEDTIME 180 tabs 4RF Refilled pantoprazole 40 mg PO QAM 30 tabs 3RF TODAY'S VISIT Patient is here today for follow-up and to discuss lab results as well as ultrasound results. Patient has upper GI series scheduled the for September. Patient reports that currently she has been doing better. She is taking pantoprazole in the morning and her symptoms of acid reflux are suppressed. Patient denies dyspepsia, dysphagia or odynophagia. Patient reports that she is moving her bowels better now that she is taking Dulcolax. If patient forgets to take Dulcolax she will not have a bowel movement. Patient reports that she feels like she empties her bowels completely. Patient denies melena, hematochezia, unintentional weight loss or ribbon like stools. Patient however reports that she continues to be bloated no matter what she eats. Patient does admit that she mostly Indonesian food. However patient is trying to avoid that is greasy or fatty. Patient denies eating late at night. Patient does admit to eat lots of carbs like rice, pasta and bread. [facility] Medical History Upper extremity weakness Myositis Chest pain Diabetes Asthma High cholesterol IDDM (insulin dependent diabetes mellitus) Surgical History History of esophagogastroduodenoscopy (EGD) Hx of colonoscopy H/O: hysterectomy H/O tubal ligation Social History Household Members: Family Are you a primary child care specialist to a significant other at home: No Do you presently have visiting nurse or other home services: No Alcohol intake: never Patient Tobacco Use Status: Current someday Tobacco user Tobacco use type: Smokeless Tobacco Cigarettes Per Day: 1 Second Hand Smoke Exposure: No Review of Systems Const Denies weight gain and Denies weight loss ENT Reports no additional complaints, Denies dysphagia and Denies odynophagia Card Reports no additional complaints Resp Reports no additional complaints GI Denies abdominal pain, Denies belching, Denies melena, Reports bloating, Denies change in bowel habits, Denies constipation, Denies dysphagia, Denies excessive flatus, Denies dyspepsia, Reports heartburn (Occasional), Denies diarrhea, Denies loose stools, Denies nausea, Denies odynophagia and Denies vomiting Reports no additional complaints Musc Reports no additional complaints Neuro Reports no additional complaints Psych Reports no additional complaints Endo Reports no additional complaints Physical Exam Vital Signs: Last Vital Signs Pulse 92 08/19/25 10:24 BP 128/60 08/19/25 10:24 Pulse Ox 94 08/19/25 10:24 Oxygen Delivery Method Room Air 08/19/25 10:24 BMI result Body Mass Index 28.9 Const General: healthy appearing, no acute distress and well developed Nutritional Appearance: well nourished Orientation/consciousness: patient oriented x3 Resp Effort & Inspection: normal respiratory effort, able to speak in complete sentences, no tracheal deviation and symmetric chest movement Auscultation: clear to auscultation bilaterally Cardio Rate: regular rate GI Inspection: Yes normal to inspection and No distended Palpation (GI): Soft to palpation, not firm, nontender and No hepatosplenomegaly present Auscultation: normal bowel sounds General: Yes no CVA tenderness Back/Spine/Pelvis Back: no CVA tenderness Skin General skin exam: elasticity normal, turgor normal and dry skin Neuro General: patient oriented x3 Psych Appearance: grossly normal Mental Status: mental status grossly normal Results Reviewed Results Reviewed: ABDOMINAL ULTRASOUND WITH ELASTOGRAPHY FINDINGS: Liver: The right lobe of the liver measures 15.8 cm in size. The left lobe of the liver measures 11.2 cm in size. The liver demonstrates increased echotexture, consistent with steatosis. Again seen is a 1.3 x 1.8 x 1.6 cm echogenic mass in the right lobe which likely represents a hemangioma. No intrahepatic biliary ductal dilatation is identified. There is normal hepatopedal flow in the portal vein. Ultrasound elastography of the liver was performed with 10 separate measurements of the liver parenchyma with the patient in the supine position. Measurements were obtained approximately 2 cm below Sherry's capsule and perpendicular to the capsule. The median shear wave velocity is 0.88 m/s. The interquartile range/median (IQR/median) is 0.15. Gallbladder and biliary tree: The gallbladder is unremarkable, without evidence of calculi, wall thickening, or pericholecystic fluid. There is no sonographic Vivar sign. The common bile duct is normal in caliber measuring 3 mm. Right Kidney: The right kidney measures 13.6 cm in length. There is mild fullness of the renal pelvis. No masses or calculi are identified. Pancreas: The pancreatic head, neck, and body are unremarkable. The pancreatic tail is obscured by bowel gas. Abdominal aorta and inferior vena cava: The visualized portions of the abdominal aorta and inferior vena cava are normal in caliber. There is no free fluid in the right upper quadrant. US/US abdomen burnett w elastography IMPRESSION: Hepatic steatosis. The median shear wave velocity in the liver is 0.88 m/s, corresponding to a median liver stiffness of 2.3 kPa. The IQR/median value is 0.15. This is indicative of a quality data set. Findings are indicative of a normal elastography value with a low likelihood of severe fibrosis or cirrhosis. Laboratory Tests 05/20/25 09:50 Vitamin B12 361 25-OH Vitamin D Total 33 Folate 11.3 TSH 1.30 Tiss Transglutamin IgG <1.0 Assessment & Plan Assessment & Plan (1) Bloating: Code(s): R14.0 - Abdominal distension (gaseous) Category: Medical (2) Dysphagia: Code(s): R13.10 - Dysphagia, unspecified Category: Medical Qualifiers: Dysphagia type: unspecified Qualified Code(s): R13.10 - Dysphagia, unspecified (3) Chronic GERD: Code(s): K21.9 - Gastro-esophageal reflux disease without esophagitis Category: Medical (4) Constipation: Code(s): K59.00 - Constipation, unspecified Qualifiers: Constipation type: slow transit constipation Qualified Code(s): K59.01 - Slow transit constipation (5) Postprandial epigastric pain: Code(s): R10.13 - Epigastric pain Plan Patient will continue taking pantoprazole daily. Avoid dietary triggers and late night snacking. Staying upright for minimum 3 hours after meals discussed with patient. Patient will continue taking Dulcolax. Increase fluid intake and activity to promote bowel motility. May take simethicone as needed for bloating. Discussed with patient low FODMAP diet. List of food recommended as well as list of food to avoid given to patient. Will recheck liver enzymes next visit. Ultrasound results discussed with patient. Patient was encouraged to keep her appointment for upper GI series in September Patient will return to the office in 3-4 months. She is agreeable to this plan and verbalizes understanding of instructions. She was given the opportunity to ask questions and all questions answered. Medications: New simethicone (Gas Relief (simethicone)) 125 mg PO BID-TID PRN 90 tabs 3RF abdominal distention Coding Level of Care Code Est Pt Level 4 (19155) Add On Problem Visit Only Diagnoses Bloating R14.0 Dysphagia, unspecified type R13.10 Dysphagia type: unspecified Chronic GERD K21.9 Slow transit constipation K59.01 Constipation type: slow transit constipation Postprandial epigastric pain R10.13 Time Spent (min) 40 Comment 25 minutes spent with patient and additional 15 minutes spent reviewing her records
[2025-08-19 10:24] VITALS: BP 128/60; PULSE 92; O2SAT 94; BMI 28.9
--- OUTSIDE RECORDS SUMMARY | 2025-08-19 11:23 | XMS_ITS | Encounter Summary ---
Author Organization [employer] Address [address] [facility] 7t [place] [address] Care Team Providers Care Spare Hand Name Role Phone Cheryl Fitzpatrick MD Primary Care Provider + Nick Castellanos Unavailable Unavailable Reason for Visit * Reason Onset Date Comments PT1 07/11/2025 Encounter Details Date Type Department Care Team (Late st Contact Info) Description 07/11/2025 Telephone [facility]INE [address] [place], [place] [phone] Cheryl Fitzpatrick MD [address] [place], [place] [phone] PT1 Social History Tobacco Use Types Packs/Day [...] [facility] [address], [place] [address] Escort needed: Y/N: No Do you have a wheelchair: Y/N: No If yes- Manual or electric: Visits: 3 monthly documented in this encounter Plan of Treatment Upcoming Encounters Date Type Department Care Team ([facility] st Contact Info) Description 08/27/2025 10:30 AM EST Office Visit [facility] [address] [place] [address] [place] [address] Cheryl Fitzpatrick MD [address] [place] [address] documented as of this encounter Goals Goal [...] documented as of this encounter Care Teams Spare Hand Relationship Specialty Start Date End Date Cheryl Fitzpatrick MD [address] [place] [address] PCP - General Internal Medicine 09/10/22 Nick Castellanos FNP [address] [place] [address] Nurse Practitioner Family Medicine 07/04/23 Apolonia Mars district manager primary care sales Epic Ambulatory AnalystToe Puller 11/16/23 documented as of this encounter
--- OUTSIDE RECORDS SUMMARY | 2025-08-19 11:23 | XMS_ITS | Encounter Summary ---
Author Organization [employer] Address [address] [facility] 7t [place] [address] Care Team Providers Care Dobby Looms Pegger Name Role Phone Cheryl Fitzpatrick MD Primary Care Provider + Nick Castellanos Unavailable Unavailable Reason for Visit * Reason Comments Med Refill Encounter Details Date Type Department Care Team (Late st Contact Info) Description 09/13/2024 Refill [facility] [address] [place], [place] [phone] Cheryl Fitzpatrick MD [address] [place], [place] [phone] Anxiety; Migraine with aura and without status [...] 10:30 AM EST Office Visit [facility] [address] [place] [address] Cheryl Fitzpatrick MD [address] [place] [address] documented as of this encounter Goals Goal [...] documented as of this encounter Care Teams Dobby Looms Pegger Relationship Specialty Start Date End Date Cheryl Fitzpatrick MD [address] [place] [address] PCP - General Internal Medicine 09/10/22 Nick Castellanos FNP [address] [place] [address] Nurse Practitioner Family Medicine 07/04/23 Apolonia Mars clinical manager home care Animal PathologistWord Processor 11/16/23 documented as of this encounter
--- OUTSIDE RECORDS SUMMARY | 2025-08-19 11:23 | XMS_ITS | Encounter Summary ---
Author Organization [employer] Address [address] [facility] 7t [place] [address] Care Team Providers Care Superintendent General Name Role Phone Cheryl Fitzpatrick MD Primary Care Provider + Nick Castellanos Unavailable Unavailable Encounter Details Date Type Department Care Team (Late st Contact Info) Description 09/11/2024 Telephone [facility] [address] [place], [place] [phone] Cheryl Fitzpatrick MD [address] [place], [place] [phone] Social History Tobacco Use Types Packs/Day Years [...] 10:30 AM EST Office Visit [facility] [address] [place] [address] Cheryl Fitzpatrick MD [address] [place] [address] documented as of this encounter Goals Goal [...] as of this encounter Care Teams Superintendent General Relationship Specialty Start Date End Date Cheryl Fitzpatrick MD [address] [place] [address] PCP - General Internal Medicine 09/10/22 Nick Castellanos FNP [address] [place] [address] Nurse Practitioner Family Medicine 07/04/23 Apolonia Mars physician assistant primary care Results EngineerStand Up Comedian 11/16/23 documented as of this encounter
--- OUTSIDE RECORDS SUMMARY | 2025-08-19 11:23 | XMS_ITS | Encounter Summary ---
Author Organization [employer] Address [address] [facility] 7t [place] [address] Care Team Providers Care Oracle Architect Name Role Phone Cheryl Fitzpatrick MD Primary Care Provider + Nick Castellanos Unavailable Unavailable Reason for Visit * Reason Onset Date Comments PT1 11/19/2024 Encounter Details Date Type Department Care Team (Late st Contact Info) Description 11/19/2024 Telephone [facility]INE [address] [place], [place] [phone] Cheryl Fitzpatrick MD [address] [place], [place] [phone] PT1 Social History Tobacco Use Types Packs/Day [...] Yes Provider name or facility name: [address] [place] [address]. [facility] Escort needed: Y/N: No Do you have a wheelchair: Y/N: No Cane If yes- Manual or electric: N/A Visits: (5x monthly) 2 of 4 Patient calling requesting PT1 Home Address verified: Y/N: Yes Provider name or facility name: [address] [place] [address] - [facility] Escort needed: Y/N: No Do you have a wheelchair: Y/N: No Cane If yes- Manual or electric: N/A Visits: (2x monthly) 3 of 4 Patient calling requesting PT1 Home Address verified: Y/N: Yes Provider name or facility name: [address] [place] [address] - [facility] Escort needed: Y/N: No Do you have a wheelchair: Y/N: No Cane If yes- Manual or electric: N/A Visits: (2x monthly) 4 of 4 Patient calling requesting PT1 Home Address verified: Y/N: Yes Provider name or facility name: [address] [facility] [place] [address] [facility] Escort needed: Y/N: No Do you have a wheelchair: Y/N: No Cane If yes- Manual or electric: N/A Visits: (7x monthly) documented in this encounter Plan of Treatment Upcoming Encounters Date Type Department Care Team (Late st Contact Info) Description 08/27/2025 10:30 AM EST Office Visit [facility] [address] [place] [address] Cheryl Fitzpatrick MD [address] [place] [address] documented as of this encounter Goals Goal [...] as of this encounter Care Teams Oracle Architect Relationship Specialty Start Date End Date Cheryl Fitzpatrick MD [address] [place] [address] PCP - General Internal Medicine 09/10/22 Nick Castellanos FNP [address] [place] [address] Nurse Practitioner Family Medicine 07/04/23 Apolonia Mars residential child care counselor Machine Tool DresserMarriage Counselor 11/16/23 documented as of this encounter
--- OUTSIDE RECORDS SUMMARY | 2025-08-19 11:24 | XMS_ITS | Encounter Summary ---
Author Organization [employer] Address [address] [facility] 7t [place] [address] Care Team Providers Care Pattern Drafter Name Role Phone Cheryl Fitzpatrick MD Primary Care Provider + Nick Castellanos Unavailable Unavailable Reason for Visit * Reason Comments Med Refill Encounter Details Date Type Department Care Team (Late st Contact Info) Description 09/29/2023 Refill [facility] [address] [place], [place] [phone] Cheryl Fitzpatrick MD [address] [place] [address] Anxiety; Migraine with aura and without status [...] Description 08/27/2025 10:30 AM EST Office Visit [facility] [address] [place] [address] Cheryl Fitzpatrick MD [address] [place] [address] documented as of this encounter Goals Goal [...] documented as of this encounter Care Teams Pattern Drafter Relationship Specialty Start Date End Date Cheryl Fitzpatrick MD [address] [place] [address] PCP - General Internal Medicine 09/10/22 Nick Castellanos FNP [address] [place] [address] Nurse Practitioner Family Medicine 07/04/23 [address] Business Technology Architect 11/11/23 02/10/24 Apolonia Mars home care aide Business Technology ArchitectData Officer 11/16/23 documented as of this encounter
--- OUTSIDE RECORDS SUMMARY | 2025-08-19 11:24 | XMS_ITS | Encounter Summary ---
Author Organization [employer] Address [address] [facility] 7t [place] [address] Care Team Providers Care Family Living Educator Name Role Phone Cheryl Fitzpatrick MD Primary Care Provider + Edu Leung PharmD Unavailable [phone] Nick Castellanos FAMILY MEDICINE RESIDENT Unavailable Unavailable Encounter Details Date Type Department Care Team (Late st Contact Info) Description 11/12/2022 Abstract [facility] [address] [place], [place] [phone] Cheryl Fitzpatrick MD [address] [place], [place] [phone] Social History Tobacco Use Types Packs/Day Years [...] Description 08/27/2025 10:30 AM EST Office Visit [facility] [address] [place] [address] Cheryl Fitzpatrick MD [address] [place] [address] documented as of this encounter Visit Diagnoses Not on filedocumented in this encounter Additional Health Concerns Assessment Noted Time PHQ-9 Depression Total Score: 19 023 9:39 AM EST documented as of this encounter Care Teams Family Living Educator Relationship Specialty Start Date End Date Cheryl Fitzpatrick MD [address] [place] [address] PCP - General Internal Medicine 09/10/22 Edu Leung, Merari [address] [place] [address] Pharmacist Internal Medicine 06/14/23 06/28/23 Nick Castellanos FNP [address] [place] [address] Nurse Practitioner Family Medicine 07/04/23 [address] Instrumentation Instructor 11/11/23 02/10/24 Apolonia Mars child care attendant Instrumentation InstructorDirector Of Oncology 11/16/23 documented as of this encounter
--- OUTSIDE RECORDS SUMMARY | 2025-08-19 11:24 | XMS_ITS | Encounter Summary ---
Author Organization [employer] Address [address] [facility] 7t [place] [address] Care Team Providers Care Soap Inspector Name Role Phone Cheryl Fitzpatrick MD Primary Care Provider + Edu Leung PharmD Unavailable Nick Castellanos PARKING METER ATTENDANT Unavailable Unavailable Encounter Details Date Type Department Care Team (Late st Contact Info) Description 05/18/2023 Abstract [facility] ADULT DENTAL [address] [place] [address] Hema Hill DDS [address] [place], [place] [phone] Social History Tobacco Use Types Packs/Day Years [...] 08/27/2025 10:30 AM EST Office Visit [facility] MEDICINE [address] [place] [address] Cheryl Fitzpatrick MD [address] [place] [address] documented as of this encounter Goals Goal [...] documented as of this encounter Care Teams Soap Inspector Relationship Specialty Start Date End Date Cheryl Fitzpatrick MD [address] [place] [address] PCP - General Internal Medicine 09/10/22 Edu Leung PharmD [address] [place] [address] Pharmacist Internal Medicine 06/14/23 06/28/23 Nick Castellanos FNP [address] [place] [address] Nurse Practitioner Family Medicine 07/04/23 [address] Market Master 11/11/23 02/10/24 Apolonia Mars care team assistant Market MasterVice President Research 11/16/23 documented as of this encounter
--- OUTSIDE RECORDS SUMMARY | 2025-08-19 11:24 | XMS_ITS | Encounter Summary ---
Author Organization [employer] Address [address] [facility] 7t [place] [address] Care Team Providers Care Grid Inspector Name Role Phone Cheryl Fitzpatrick MD Primary Care Provider + Edu Leung PharmD Unavailable [phone] Nick Castellanos FUR GLAZER Unavailable Unavailable Reason for Visit * Reason Comments Med Refill Encounter Details Date Type Department Care Team (Late st Contact Info) Description 12/09/2022 Refill [facility]INE [address] [place], [place] [phone] Cheryl Fitzpatrick MD [address] [place], [place] [phone] Type 2 diabetes mellitus with hyperglycemia, with long-term current use of insulin ([facility]); Anxiety Social History Tobacco Use Types [...] Description 08/27/2025 10:30 AM EST Office Visit [facility] [address] [place] [address] Cheryl Fitzpatrick MD [address] [place] [address] documented as of this encounter Visit Diagnoses Diagnosis Type 2 diabetes mellitus with hyperglycemia, with long-term current use of insulin ([facility]) Anxiety Anxiety state, unspecified documented in this encounter Additional Health Concerns Assessment Noted Time PHQ-9 Depression Total Score: 9 11/16/19 23 10:11 AM EDT documented as of this encounter Care Teams Grid Inspector Relationship Specialty Start Date End Date Cheryl Fitzpatrick MD [address] [place] [address] PCP - General Internal Medicine 09/10/22 Edu Leung PharmD [address] [place] [address] Pharmacist Internal Medicine 06/14/23 06/28/23 Nick Castellanos FNP [address] [place] [address] Nurse Practitioner Family Medicine 07/04/23 [address] Ferry Captain 11/11/23 02/10/24 Apolonia Mars residential child care counselor Ferry CaptainAlligator Shear Operator 11/16/23 documented as of this encounter
--- OUTSIDE RECORDS SUMMARY | 2025-08-19 11:24 | XMS_ITS | Encounter Summary ---
Author Organization [employer] Address [address] [facility] 7t [place] [address] Care Team Providers Care Center Director Name Role Phone Cheryl Fitzpatrick MD Primary Care Provider + Nick Castellanos Unavailable Unavailable Reason for Visit * Reason Onset Date Comments PT-1 04/16/2024 Encounter Details Date Type Department Care Team (Late st Contact Info) Description 04/16/2024 Telephone [facility] MEDICINE [address] [place] [phone] Cheryl Fitzpatrick MD [address] [place], [place] [phone] PT-1 Social History Tobacco Use Types Packs/Day [...] Y/N: Yes Provider name or facility name: [facility] Therapy - [place] [address] Facility Address: [address] [place] [address] [facility]: Y/N: No Do you have a wheelchair: Y/N: No If yes- Manual or electric: no Visits 6 documented in this encounter Plan of Treatment Upcoming Encounters Date Type Department Care Team ([facility] st Contact Info) Description 08/27/2025 10:30 AM EST Office Visit [facility] [address] [place] [address] Cheryl Fitzpatirck MD [address] [place] [address] documented as of this encounter Goals Goal [...] documented as of this encounter Care Teams Center Director Relationship Specialty Start Date End Date Cheryl Fitzpatrick MD [address] [place] [address] PCP - General Internal Medicine 09/10/22 Nick Castellanos FNP [address] [place] [address] Nurse Practitioner Family Medicine 07/04/23 Apolonia Mars primary care coordinator Clinical Social Work TherapistHardware Trainer 11/16/23 documented as of this encounter
--- OUTSIDE RECORDS SUMMARY | 2025-08-19 11:24 | XMS_ITS | Encounter Summary ---
Author Organization [employer] Address 75 [facility] 7t [place] [address] Care Team Providers Care Body Technician/Painter Name Role Phone Cheryl Fitzpatrick MD Primary Care Provider + Nick Castellanos Unavailable Unavailable Reason for Visit * Reason Onset Date Comments PT1 03/15/2024 Encounter Details Date Type Department Care Team (Late st Contact Info) Description 03/15/2024 Telephone [facility] [address] [place], [place] [phone] Cheryl Fitzpatrick MD 230 [place], [place] [phone] PT1 Social History Tobacco Use Types Packs/Day [...] states is homeless and is currently at [address] [place] [phone] Provider name or facility name: [facility] physical therapy Facility Address: [address] [place] [address] Escort needed: Y/N: No Do you have a wheelchair: Y/N: No If yes- Manual or electric: no Visits: 5-6 visit a month documented in this encounter Plan of Treatment Upcoming Encounters Date Type Department Care Team (Late st Contact Info) Description 08/27/2025 10:30 AM EST Office Visit [facility] [address] [place] [address] Cheryl Fitzpatrick MD [address] [place] [address] documented as of this encounter Goals Goal [...] documented as of this encounter Care Teams Body Technician/Painter Relationship Specialty Start Date End Date Cheryl Fitzpatrick MD [address] [place] [address] PCP - General Internal Medicine 09/10/22 Nick Castellanos FNP [address] [place] [address] Nurse Practitioner Family Medicine 07/04/23 Apolonia Mars acute care physical therapist Sap AnalystGravure Printing Machinist 11/16/23 documented as of this encounter
--- OUTSIDE RECORDS SUMMARY | 2025-08-19 11:24 | XMS_ITS | Encounter Summary ---
Author Organization [employer] Address 75 [facility] 7t [place] [address] Care Team Providers Care Heating And Ventilating Tender Name Role Phone Cheryl Fitzpatrick MD Primary Care Provider + Nick Castellanos Unavailable Unavailable Reason for Visit * Reason Comments Med Refill Encounter Details Date Type Department Care Team (Late st Contact Info) Description 09/29/2023 Refill [facility] 230 [place], [place] [phone] Cheryl Fitzpatrick MD 230 [place] [address] Anxiety; Migraine with aura and without status [...] 08/27/2025 10:30 AM EST Office Visit [facility] [address] [place] [address] Cheryl Fitzpatrick MD [address] [place] [address] documented as of this encounter Goals Goal [...] documented as of this encounter Care Teams Heating And Ventilating Tender Relationship Specialty Start Date End Date Cheryl Fitzpatrick MD [address] [place] [address] PCP - General Internal Medicine 09/10/22 Nick Castellanos FNP [address] [place] [address] Nurse Practitioner Family Medicine 07/04/23 Court Shay Marketing Administrative Assistant 11/11/23 02/10/24 Apolonia Mars pharmacy care coordinator Marketing Administrative AssistantRange Conservationist 11/16/23 documented as of this encounter
--- OUTSIDE RECORDS SUMMARY | 2025-08-19 11:24 | XMS_ITS | Encounter Summary ---
Author Organization [employer] Address 75 [facility] 7t [place] [address] Care Team Providers Care Corporate Quality Assurance Manager Name Role Phone Cheryl Fitzpatrick MD Primary Care Provider + Nick Castellanos Unavailable Unavailable Reason for Visit * Reason Onset Date Comments Created in error 03/20/2024 Encounter Details Date Type Department Care Team (Late st Contact Info) Description 03/20/2024 Telephone [facility] [address] [place] [address] [phone] Cheryl Fitzpatrick MD 230 [place], [place] [phone] Created in error Social History Tobacco Use [...] Description 08/27/2025 10:30 AM EST Office Visit [facility] 230 [place] [address] Cheryl Fitzpatrick MD 230 [place] [address] documented as of this encounter Goals Goal [...] as of this encounter Care Teams Corporate Quality Assurance Manager Relationship Specialty Start Date End Date Cheryl Fitzpatrick MD 230 [place] [address] PCP - General Internal Medicine 09/10/22 Nick Castellanos FNP 230 [place] [address] Nurse Practitioner Family Medicine 07/04/23 Apolonia Mars after school caregiver Soil Science Technical OfficerRadio Message Router 11/16/23 documented as of this encounter
--- OUTSIDE RECORDS SUMMARY | 2025-08-19 11:24 | XMS_ITS | Encounter Summary ---
Author Organization [employer] Address 75 [facility] 7t [place] [address] Care Team Providers Care Check Pilot Name Role Phone Cheryl Fitzpatrick MD Primary Care Provider + Edu Leung PharmD Unavailable [phone] Nick aCstellanos LEG BREAKER Unavailable Unavailable Reason for Visit * Reason Onset Date Comments cancelling appt with OS 04/19/2023 Encounter Details Date Type Department Care Team (Late st Contact Info) Description 04/19/2023 Telephone [facility] 230 [place], [place] [phone] Hema Hill DDS [address] [place], [place] [phone] cancelling appt with OS Social History Tobacco [...] to be cancelled. Reached out to oral recruiting scheduler but could not reach her DR documented in this encounter Plan of Treatment Upcoming Encounters Date Type Department Care Team (Late st Contact Info) Description 08/27/2025 10:30 AM EST Office Visit [facility] [address] [place] [address] Cheryl Fitzpatrick MD 230 [place] [address] documented as of this encounter Goals Goal [...] documented as of this encounter Care Teams Check Pilot Relationship Specialty Start Date End Date Cheryl Fitzpatrick MD 230 [place] [address] PCP - General Internal Medicine 09/10/22 Edu Leung, HudsonD 230 [place] [address] Pharmacist Internal Medicine 06/14/23 06/28/23 Nick Castellanos FNP [address] [place] [address] Nurse Practitioner Family Medicine 07/04/23 Court Shay Basketball Coach 11/11/23 02/10/24 Apolonia Mars post acute care registered nurse Basketball CoachElectroplating Sales Representative 11/16/23 documented as of this encounter
--- OUTSIDE RECORDS SUMMARY | 2025-08-19 11:24 | XMS_ITS | Encounter Summary ---
Author Organization [employer] Address 75 [facility] 7t [place] [address] Care Team Providers Care Semaphore Operator Name Role Phone Cheryl Fitzpatrick MD Primary Care Provider + Nick Castellanos Unavailable Unavailable Reason for Visit * Reason Onset Date Comments cx scheduled appt 02/08/2025 Encounter Details Date Type Department Care Team (Late st Contact Info) Description 02/08/2025 Telephone [facility] 230 [place] [address] Hema Hill DDS [address] [place], [place] [phone] cx scheduled appt Social History Tobacco Use [...] adjustment due to pain. However, front office java developer C called that they were in [...] pin worsens and persists. Provided phone number [phone] documented in this encounter Plan of Treatment Upcoming Encounters Date Type Department Care Team (Late st Contact Info) Description 08/27/2025 10:30 AM EST Office Visit [facility] [address] [place] [address] Cheryl Fitzpatrick MD 230 [place] [address] documented as of this encounter Goals Goal [...] documented as of this encounter Care Teams Semaphore Operator Relationship Specialty Start Date End Date Cheryl Fitzpatrick MD [address] [place] [address] PCP - General Internal Medicine 09/10/22 Nick Castellanos FNP [address] [place] [address] Nurse Practitioner Family Medicine 07/04/23 Apolonia Mars animal care service worker Charge Entry SpecialistWarp Worker 11/16/23 documented as of this encounter
--- OUTSIDE RECORDS SUMMARY | 2025-08-19 11:24 | XMS_ITS | Encounter Summary ---
Author Organization [employer] Address 75 [facility] 7t [place] [address] Care Team Providers Care Head Host/Hostess Name Role Phone Cheryl Fitzpatrick MD Primary Care Provider + Edu Leung PharmD Unavailable [phone] Nick Castellanos DISPLAY MANAGER Unavailable Unavailable Reason for Visit * Reason Onset Date Comments call back 10/05/2022 Encounter Details Date Type Department Care Team (Late st Contact Info) Description 10/05/2022 Telephone [facility] MEDICINE [address] [place] [address] [phone] Cheryl Fitzpatrick MD 230 [place], [place] [phone] call back Social History Tobacco Use Types [...] 10:30 AM EST Office Visit [facility]INE [address] [place] [address] Cheryl Fitzpatrick MD [address] [place] [address] documented as of this encounter Visit Diagnoses Not on filedocumented in this encounter Additional Health Concerns Assessment Noted Time PHQ-9 Depression Total Score: 19 023 9:39 AM EST documented as of this encounter Care Teams Head Host/Hostess Relationship Specialty Start Date End Date Cheryl Fitzpatrick MD [address] [place] [address] PCP - General Internal Medicine 09/10/22 Edu Leung, HudsonD [address] [place] [phone] Pharmacist Internal Medicine 06/14/23 06/28/23 Nick Castellanos FNP [address] [place] [address] Nurse Practitioner Family Medicine 07/04/23 [address] Shay Supervisor Webbing 11/11/23 02/10/24 Apolonia Mars animal care giver Supervisor WebbingRake Operator 11/16/23 documented as of this encounter
--- OUTSIDE RECORDS SUMMARY | 2025-08-19 11:24 | XMS_ITS | Encounter Summary ---
Author Organization [employer] Address 75 [facility] 7t [place] [address] Care Team Providers Care Batterboard Setter Name Role Phone Cheryl Fitzpatrick MD Primary Care Provider + Nick Castellanos Unavailable Unavailable Reason for Visit * Reason Onset Date Comments PT-1 10/22/2024 Encounter Details Date Type Department Care Team (Late st Contact Info) Description 10/22/2024 Telephone [facility] MED[facility]INE [address] [place] [address] [phone] Cheryl Fitzpatrick MD 230 [place], [place] [phone] PT-1 (/) Social History Tobacco Use Types [...] Y/N: Yes Provider name or facility name: [facility] Escort needed: Do you have a wheelchair: Y/N: No If yes- Manual or electric: Visits: (5 x Mothly) Patient calling requesting PT1 Home Address verified: Y/N: Yes Provider name or facility name: [facility], [address] [place] [address] Escort needed: Y/N: No Do you have a wheelchair: Y/N: No If yes- Manual or electric: Visits: (5 x Monthly) Patient calling requesting PT1 Home Address verified: Yes Provider name or facility name: [facility] [employer] [facility], [address] [facility] [address], [place] [address] Escort needed: Y/N: No Do you have a wheelchair: Y/N: No If yes- Manual or electric: Visits: (2 x Monthly) documented in this encounter Plan of Treatment Upcoming Encounters Date Type Department Care Team (Late st Contact Info) Description 08/27/2025 10:30 AM EST Office Visit [facility] 230 [place] [address] Cheryl Fitzpatrick MD [address] [place] [address] documented as of this encounter Goals Goal [...] documented as of this encounter Care Teams Batterboard Setter Relationship Specialty Start Date End Date Cheryl Fitzpatrick MD [address] [place] [address] PCP - General Internal Medicine 09/10/22 Nick Castellanos FNP [address] [place] [address] Nurse Practitioner Family Medicine 07/04/23 Apolonia Mars pet care technician DeblockerTraveling Crane Operator 11/16/23 documented as of this encounter
--- OUTSIDE RECORDS SUMMARY | 2025-08-19 11:24 | XMS_ITS | Encounter Summary ---
Author Organization [employer] Address 75 [facility] 7t [place] [address] Care Team Providers Care Billboard Erector Helper Name Role Phone Cheryl Fitzpatrick MD Primary Care Provider + Nick Castellanos Unavailable Unavailable Reason for Visit * Reason Onset Date Comments Paperwork/Forms 10/19/2023 Encounter Details Date Type Department Care Team (Late st Contact Info) Description 10/19/2023 Telephone [facility] MEDICINE [address] [place] [phone] Cheryl Fitzpatrick MD 230 [place], [place] [phone] Paperwork/Forms Social History Tobacco Use Types Packs/Day [...] to welfare before they close her case. Government Affairs Fellow advised pt she has an appointment this Tuesday (10/19) with provider. Please contact pt at [phone] (Belarusian) documented in this encounter Plan of Treatment Upcoming Encounters Date Type Department Care Team (Late st Contact Info) Description 08/27/2025 10:30 AM EST Office Visit [facility] 230 [place] [address] Cheryl Fitzpatrick MD [address] [place] [address] documented as of this encounter Goals Goal [...] documented as of this encounter Care Teams Billboard Erector Helper Relationship Specialty Start Date End Date Cheryl Fitzpatrick MD [address] [place] [address] PCP - General Internal Medicine 09/10/22 Nick Castellanos FNP [address] [place] [address] Nurse Practitioner Family Medicine 07/04/23 Court Shay Camp Director 11/11/23 02/10/24 Apolonia Mars healthcare educator Camp DirectorDry Yard Worker 11/16/23 documented as of this encounter
--- OUTSIDE RECORDS SUMMARY | 2025-08-19 11:24 | XMS_ITS | Encounter Summary ---
Author Organization [employer] Address 75 [facility] 7t [place] [address] Care Team Providers Care It Help Desk Technician Name Role Phone Cheryl Fitzpatrick MD Primary Care Provider + Nick Castellanos Unavailable Unavailable Reason for Visit * Reason Onset Date Comments PT1 10/27/2023 Encounter Details Date Type Department Care Team (Late st Contact Info) Description 10/27/2023 Telephone [facility] 230 [place], [place] [phone] Cheryl Fitzpatrick MD 230 [place], [place] [phone] PT1 Social History Tobacco Use Types Packs/Day [...] - 11/09/2023 1:24 PM EDT PT-1 Request [id number] Pending for [address] [place] [address] * Telephone Encounter - Maria De Jesus Epstein - 11/09/2023 1:20 PM EDT PT-1 Request [id number] Pending for [facility] * Telephone Encounter - Maria De Jesus Epstein - 11/09/2023 1:17 PM EDT PT-1 Request [id number] Pending For [facility] * Telephone Encounter - Shireen Johns - 10/27/2023 9:28 AM EST PT1 renewals Date: 11/09/2023 Time: 1:30 Visits: n/a Address: 230 [facility] [address] Facility: [facility] Wheel Chair: No Bariatric Nurse Needed: No Date: n/a Time: n/a Visits: n/a Address: [address] [facility] [address] Facility: [facility] Multiple Specialties Wheel Chair: no Bariatric Nurse Needed: no Date: n/a Time: n/a Visits: n/a Address: [address] [facility] Facility: [employer] Wheel Chair: no Bariatric Nurse Needed: no documented in this encounter Plan of Treatment Upcoming Encounters Date Type Department Care Team (Late st Contact Info) Description 08/27/2025 10:30 AM EST Office Visit [facility] MEDICINE [address] [place] [address] Cheryl Fitzpatrick MD [address] [place] [address] documented as of this encounter Goals Goal [...] documented as of this encounter Care Teams It Help Desk Technician Relationship Specialty Start Date End Date Cheryl Fitzpatrick MD 230 [place] [address] PCP - General Internal Medicine 09/10/22 Nick Castellanos FNP [address] [place] [address] Nurse Practitioner Family Medicine 07/04/23 [address] Sh[address] Rivet Flunky 11/11/23 02/10/24 Apolonia Mars wound care nurse Rivet FlunkyUniversal Banker 11/16/23 documented as of this encounter
--- OUTSIDE RECORDS SUMMARY | 2025-08-19 11:24 | XMS_ITS | Encounter Summary ---
Author Organization [email or web address] Address 75 [facility] 7t [place] [address] Care Team Providers Care Reformatory Attendant Name Role Phone Cheryl Fitzpatrick MD Primary Care Provider + Nick Castellanos Unavailable Unavailable Reason for Visit * Reason Comments Med Refill Encounter Details Date Type Department Care Team (Late st Contact Info) Description 09/29/2023 Refill [facility] [address] [place] [address] Nick Castellanos FNP Type 2 diabetes mellitus with hyperglycemia, with long-term current use of insulin ([facility]) Social History Tobacco Use Types Packs/Day Years [...] 10:30 AM EST Office Visit [facility] [address] [place] [address] Cheryl Fitzpatrick MD [address] [place] [address] documented as of this encounter Goals Goal [...] documented as of this encounter Care Teams Reformatory Attendant Relationship Specialty Start Date End Date Cheryl Fitzpatrick MD [address] [place] [address] PCP - General Internal Medicine 09/10/22 Nick Castellanos FNP [address] [place] [address] Nurse Practitioner Family Medicine 07/04/23 [address] Commercial Artist 11/11/23 02/10/24 Apolonia Mars multi care technician Commercial ArtistScroll Machine Operator 11/16/23 documented as of this encounter
--- OUTSIDE RECORDS SUMMARY | 2025-08-19 11:24 | XMS_ITS | Clinical Summary ---
Author Organization [employer] Address [address] [facility] [address] [place] [address] Care Team Providers Care Piling Setter Name Role Phone Ingrid Wolfe MD Primary Care Provider + Nick Castellanos JIG AND FIXTURE REPAIRER Unavailable Unavailable Allergies Active Allergy Reactions Criticality Noted Date Comments Sulfa Antibiotics Unknown,Anaphylaxis High 3 Other Reaction(s): Unknown Sulfadiazine 09/10/2022 Dulaglutide Diarrhea Medium 01/06/2023 Medications * This document contains information received from the source organization and may not represent a complete record from that organization. Blood Glucose Monitoring Suppl (FreeStyle Lite) deviceIndication s:Type 2 diabetes mellitus with hyperglycemia, with long-term current use of insulin (HCC),Anxiety Test daily before all meals/snacks and once before bedtime. 1 each 09/10/19 23 Active Blood Pressure Monitoring (Blood Pressure Kit) deviceIndication s:Elevated blood pressure reading Check BP 2x per week 1 each 10/01/19 23 Active albuterol 108 (90 Base) MCG/ACT inhaler inhale 2 puff by inhalation route every 4 - 6 hours as needed Active amitriptyline (Elavil) 100 MG tablet TAKE 1 TABLET BY MOUTH AT BEDTIME 04/04/20 23 Active pantoprazole (ProtoNix) 40 MG EC tablet TAKE 1 TABLET BY MOUTH EVERY MORNING 05/11/20 23 Active Clotrimazole Anti-Fungal 1 % creamIndications :Candidal vaginitis APPLY TO THE AFFECTED AREA(S) TOPICALLY TWICE DAILY 45 g 2 07/26/20 23 Active buPROPion XL (Wellbutrin XL) 300 MG 24 hr tabletIndication s:Type 2 diabetes mellitus with hyperglycemia, with long-term current use of insulin ([facility]),Anxiety Take 1 tablet (300 mg) by mouth in the morning. Do not crush, chew, or split. 90 tablet 3 01/31/20 24 Active clonazePAM (KlonoPIN) 2 MG tabletIndication s:Type 2 diabetes mellitus with hyperglycemia, with long-term current use of insulin ([facility]) Take 1 tablet (2 mg) by mouth every 8 (eight) hours. 84 tablet 5 01/31/20 24 Active QUEtiapine (SEROquel) 300 MG tabletIndication s:Type 2 diabetes mellitus with hyperglycemia, with long-term current use of insulin ([facility]) Take 0.5 tablets (150 mg) by mouth in the morning AND 2 tablets (600 mg) at bedtime. 225 tablet 3 01/31/20 24 Active traZODone (Desyrel) 100 MG tabletIndication s:Type 2 diabetes mellitus with hyperglycemia, with long-term current use of insulin ([facility]),Anxiety TAKE 2 TABLET BY MOUTH QHS 180 tablet 3 01/31/20 24 Active acetaminophen (Tylenol) 500 MG tablet Take 1 tablet (500 mg) by mouth every 6 (six) hours if needed for mild pain for up to 20 doses. 20 tablet 06/06/20 24 Active ibuprofen 600 MG tablet Take 1 tablet (600 mg) by mouth every 6 (six) hours if needed for mild pain for up to 20 doses. 20 tablet 06/06/20 24 Active insulin degludec (Tresiba FlexTouch) 100 UNIT/ML injectionIndicat ions:Type 2 diabetes mellitus with hyperglycemia, with long-term current use of insulin ([facility]) INJECT 72 UNITS SUBCUTANEOUSLY EVERY EVENING 30 mL 7 07/31/20 24 Active insulin lispro (HumaLOG) 100 UNIT/ML injectionIndicat ions:Type 2 diabetes mellitus with hyperglycemia, with long-term current use of insulin ([facility]),Anxiety INJECT 10 UNITS SUBCUTANEOUSLY BEFORE MEALS 15 mL 07/31/20 24 Active TRUEplus Lancets 33G miscIndications: Type 2 diabetes mellitus with hyperglycemia, with long-term current use of insulin (HCC),Anxiety TEST BLOOD SUGAR BEFORE MEALS AND SNACKS AND BEFORE BEDTIME 100 each 11 5 3:41 PM EST 08/14/20 24 Active Pentips Generic Pen Ohlman 32G X 4 MM miscIndications: Type 2 diabetes mellitus with hyperglycemia, with long-term current use of insulin (HCC),Anxiety USE FOUR TIMES DAILY 100 each 11 5 3:41 PM EST 09/11/19 25 Active rosuvastatin (Crestor) 20 MG tablet Take 1 tablet (20 mg) by mouth at bedtime. 90 tablet 3 10/09/19 25 026 Active triamcinolone (Kenalog) 0.1 % creamIndications :Flexural eczema Apply topically 2 times daily. 30 g 2 02/22/20 25 Active gabapentin (Neurontin) 800 MG tabletIndication s:Anxiety,Migrai ne with aura and without status migrainosus, not intractable TAKE 1 TABLET BY MOUTH THREE TIMES DAILY IN THE MORNING, AT NOON, AND AT BEDTIME 90 tablet 5 5 3:41 PM EST 03/15/20 25 Active ARIPiprazole (Abilify) 30 MG tablet Take 30 mg by mouth in the morning. Active busPIRone (Buspar) 5 MG tablet Take 1 tablet by mouth every 6 (six) hours during the day. 09/27/19 25 Active Continuous Glucose Sensor (Dexcom G7 Sensor) [facility] 03/26/20 25 Active cyclobenzaprine (Flexeril) 10 MG tablet Take 10 mg by mouth if needed in the morning, at noon, and at bedtime for muscle spasms. 05/01/20 24 Active lidocaine (Lidoderm) 5 % patch APPLY 1 PATCH TOPICALLY TO SKIN, LEAVE ON FOR 12 HOURS AND OFF FOR 12 HOURS DIRECTED 05/01/20 24 Active Ozempic, 0.25 or 0.5 MG/DOSE, 2 MG/3ML solution pen-injector INJECT 0.25 MG SUBCUTANEOUSLY ONCE A WEEK FOR 4 WEEKS, THEN INCREASE TO 0.5 MG ONCE A WEEK. ROTATE INJECTION SITES. Active solifenacin (VESIcare) 10 MG tablet Take 10 mg by mouth in the morning. 03/21/20 25 Active FreeStyle Precision Britton Test test stripIndications :Type 2 diabetes mellitus with hyperglycemia, with long-term current use of insulin (HCC) USE DIRECTED TO TEST BLOOD SUGAR NEEDED FOR HYPOGLYCEMIA 50 strip 5 5 3:41 PM EST 04/18/20 25 Active losartan-hydroCH LOROthiazide (Hyzaar) 50-12.5 MG tabletIndication s:Primary hypertension TAKE 1 TABLET BY MOUTH EVERY MORNING 90 tablet 1 05/15/20 25 Active Asmanex HFA 200 MCG/ACT aerosolIndicatio ns:Mild intermittent asthma with exacerbation INHALE 2 PUFFS BY MOUTH TWICE DAILY IN THE MORNING AND IN THE EVENING RINSE MOUTH AFTER USING. 13 g 3 5 3:41 PM EST 06/11/20 25 Active topiramate 50 MG tabletIndication s:Migraine with aura and without status migrainosus, not intractable Take 1 tablet (50 mg) by mouth at bedtime. 90 tablet 06/14/20 25 Active lidocaine-priloc milana (Emla) 2.5-2.5 % cream APPLY TOPICALLY TO THE AFFECTED AREA(S) EVERY TWELVE HOURS NEEDED FOR MILD PAIN 30 g 1 07/05/20 25 Active Jardiance 25 MGIndications:Ty pe 2 diabetes mellitus with hyperglycemia, with long-term current use of insulin (HCC) TAKE 1 TABLET BY MOUTH EVERY MORNING 30 tablet 3 07/08/20 25 Active Active Problems Problem Noted Date Diagnosed Date [...] life style modifications, diet and referral to docket specialist. Recommended to decrease soda and sugary [...] life style modifications, diet and referral to docket specialist. Recommended to decrease soda and sugary [...] (10/21/2023 11:33 AM EST): Seen recently by customer sales advisor, fu every 6 m A1c is improving but not at goal, FU with rehabilitation center manager (I gave pt phone number to schedule appointment, I will refer to bilingual case manager to support her to keep her appointment) No change in medication and fu with rehabilitation center manager Papilloma 06/24/2023 Retained dental root 05/18/2023 Major [...] Psychiatric medications were [place] provider [place], with high-dose Clonazepam. She previously experienced severe [...] but she will be referred to new [facility] pyschiatric prescriber. She gives verbal permission to [...] psychiatric symptoms. Any issues or concerns, contact [facility]. All her questions were answered and I [...] Psychiatric medications were started by provider [place], with high-dose Clonazepam. She previously experienced severe [...] Psychiatric medications were started by provider in [place], with high-dose Clonazepam. She previously experienced severe [...] letters and forms, she should F/U with [facility] Medical Records. It is clear she would [...] Psychiatric medications were started by provider [place], with high-dose Clonazepam. She previously experienced severe [...] Psychiatric medications were started by provider [place], with high-dose Clonazepam. She previously experienced severe [...] her room will be given to the [id number], and pt anticipates becoming homeless. Has been [...] her room will be given to the [id number], and pt anticipates becoming homeless. Has been [...] it is difficult for her to access [facility] every week fu with neurology next month Housing instability, currently housed 02/17/2023 Assessment & Plan (05/06/2023 1:51 PM EDT): Has to leave her daughter's home in 30d Will refer to [facility] to help her in the process of finding a room or [place] I suggested [facility] place [facility], at least temporarily while [...] home in 30d Will refer to [facility] to help her in the process of finding a room or [place] I suggested to place her [facility] with the [facility], at least temporarily while [...] and arguments with her daughters I provided [place] information and she will follow up with [...] clinician will complete referral for psychopharmacology at [facility]. Clinician educated patient on coping skills including [...] and supports PLAN: 1. Follow up with [facility]: Not recommended for follow-up 2. Patient goal is to established psychiatry service 3. Behavioral Recommendations a. Patient will continue to comply with medication b. Patient will utilze new coping skills c. Patient will reach out to a [facility], if needed Assessment & Plan [...] last pill. Pt to be seen by SHELLFISH BED WORKER nurse. Pt agreed to be referred to pill boxes. Assessment & Plan (12/21/2022 3:44 PM EDT): Patient has not received fu appt from counselor within the past month, she cant travel to [place], would like it all within the same area ([place] or [facility]) I will refer to our service and continue same meds. 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 Advised to continue to follow-up with rehabilitation center manager in 2 weeks, she definitely would benefit [...] meals, avoid long periods of fasting. FU [facility] endocrinology next mo Assessment & Plan (10/09/2024 3:58 PM EST): Uncontrolled, she needs appointment with rehabilitation center manager. Start Mounjaro 2.5 mg and FU in 4 weeks to assess tolerance, I told her she needs to r/s appointment with rehabilitation center manager. Continue Tresiba 72 units + Humalog TID ac meals + Jardiance. I discuss with her the importance of having small infraction meals, avoid long periods of fasting. Assessment & Plan (07/17/2024 1:23 PM EST): Uncontrolled. Pt to FU with endocrinology in 3 days. Assessment & Plan (04/25/2024 3:30 PM EDT): A1c is improving, not at goal. Continue to follow up closely with rehabilitation center manager team. No change in medications. Assessment & [...] and FU closely with DM educator an rehabilitation center manager clinic Counseled re more frequent low calorie/carb meals. Encouraged physical activity as tolerated. FU in 3 months Coulsened to have Covid booster LULÚ Assessment & Plan (06/10/2023 11:36 AM EDT): Uncontrolled Counseled to use Humalog prior to each meal, she has sofia with endo scheduled on 06/22/23 at 1:30 at [facility] endo, information given to pt and reminded [...] finding adequate food, counseled to go to [employer] to use HIP program. Needs to rs endocrinology appt, info given Assessment & Plan (03/24/2023 1:42 PM EDT): A1C is uncontrolled, getting worse unclear if related to seroquel and poor adherence to diet increase tresiba to 55 units per day and continue humalog start jardiance 25 mg and fu in 4-6 weeks new referral to rehabilitation center manager as local rehabilitation center manager is not accepting new patients Counseled re [...] before breakfast and dinner and refer to rehabilitation center manager Assessment & Plan (12/21/2022 10:23 AM EDT): [...] starts seeing psychiatrist Has an appointment with meat apprentice fu in 2 months Assessment & Plan [...] smoking, use nicotine gum prn Pituitary adenoma ([facility]) 10/17/2023 12/07/2024 Assessment & Plan (12/07/2024 2:45 [...] episode of recurren t major depressive disorder ([facility]) 01/20/2023 04/08/2023 Assessment & Plan (02/17/2023 11:56 [...] clinician will complete referral for psychopharmacology at [facility]. Clinician educated patient on coping skills including [...] and supports PLAN: 1. Follow up with [facility]: Not recommended for follow-up 2. Patient goal is to established psychiatry service 3. Behavioral Recommendations a. Patient will continue to comply with medication b. Patient will utilze new coping skills c. Patient will reach out to a [facility], if needed Left foot pain [...] take Wellbutrin and Seroquel daily Refer to [facility] Pt has crisis number and is able to contract for safety. Encounters * This document contains information received from the source organization and may not represent a complete record from that organization. Date Type Department Care Team Description 08/09/2025 Patient Outreach [facility] [address] [place] [phone] Ingrid Wolfe MD Pre-visit Planning (SDOH screening negative and tobacco screening negative) 07/12/2025 Orders Only [facility] External Provider, [facility] 07/11/2025 Patient Outreach [facility] [address] [place] [address] Ingrid Wolfe MD Care Coordination (CH[facility] outreach for SDOH PT-1 and food needs-referral completed /) 07/11/2025 Telephone [facility] [address] [place] [phone] Ingrid Wolfe MD PT1 07/09/2025 Telephone [facility] [address] [place] [phone] Cordova RN Clonazepam request 07/09/2025 Telephone [facility] [address] [place] [phone] Ingrid Wolfe MD Med Refill 07/07/2025 Refill [facility] [address] [place] [address] [phone] Ingrid Wolfe MD Type 2 diabetes mellitus with hyperglycemia, with long-term current use of insulin (HCC) 07/05/2025 Refill [facility] [address] [place] [phone] Ingrid Wolfe MD 06/27/2025 9:00 AM EST Office Visit [facility] [address] [place] [phone] Salena Garcia, ELLIS Type 2 diabetes mellitus without ophthalmic manifestations (HCC) (Primary Dx); Cyst of left lower eyelid; Combined forms of age-related cataract of both eyes; Strabismic amblyopia, left eye; Dry eyes; Regular astigmatism of both eyes with presbyopia 06/27/2025 Telephone [facility] [address] [place] [phone] Ingrid Wolfe MD August06/27/2025 Travel 06/19/2025 Patient Outreach [facility] [address] [place] [address] [phone] Ingrid Wolfe MD Care Coordination (CHW outreach for SDOH PT-1 and food needs-referral completed /) 06/19/2025 Telephone [facility] [address] [place] [address] [phone] Ingrid Wolfe MD pt1 06/14/2025 Refill [facility] [address] [place] [address] [phone] Ingrid Wolfe MD Migraine with aura and without status migrainosus, not intractable 06/08/2025 Refill [facility] [address] [place] [address] Ingrid Wolfe MD Mild intermittent asthma with [...] What is your housing situation today? I have lorena flanagan 08/09/[address] you li ve. Do you have problems with any of the following? None of the above 08/09/2025 Food Insecurity Answer Date Recorded Within the past 12 months, y ou worried that your food would run out before you got money to buy more: Never True 08/09/2025 Within the past 12 months,th e food you bought just didn't last and you didn't have enough money to get more: Never True Transportation Answer Date Recorded In the past 12 months, has l ack of transportation kept you from medical appts, meetings, work or from getting things needed for daily living? No 08/09/2025 Utilities Answer Date Recorded In the past 12 months, has t he electric, gas, oil or water company threatened to shut off services in your home? Yes 08/09/2025 Depression Answer Date Recorded Patient Health Questionnaire-2 Score 4 02/21/2025 Internet Access Answer Date Recorded Internet Access Q1 Yes 08/09/2025 Internet Access Q2 Not on file 08/09/2025 Comments No Sex and Gender Information Value [...] Office Visit [facility] [address] [place] [phone] Ingrid Wolfe MD [address] [place] [address] Health Maintenance Due Date Last Done Comments [...] 05/24/2025 025, 10/09/2024, 07/17/2024, Additional history exists Depression Monitoring 08/24/2025 02/21/2025, 025 Dental Oral [...] Additional history exists Tobacco Screening 06/27/2026 06/27/2025 SDOH Screening 08/09/2026 08/09/2025 Dental X-Ray: Full Mouth 07/28/2027 024, 02/08/2023, [...] Result Component 8.2( 10:41 AM EDT) Kenzie Alvarez PharmD Help patients manage their type 2 [...] has chronic kidney disease No Leslee Olivia Weekly blood pressure task Care Plan Weekly blood pressure task No Sheridan Berman Weekly blood pressure task Care Plan Weekly blood pressure task No Sheridan Berman Weekly blood pressure task Care Plan Weekly blood pressure task No Sheridan Berman Patient has diabetic eye disease Care Plan Patient has diabetic eye disease No Sheridan Berman Patient has diabetic eye disease Care Plan Patient has diabetic eye disease No Sheridan Berman Patient has diabetic eye disease Care Plan Patient has diabetic eye disease No Sheridan Berman Patient has chronic kidney disease Care Plan Patient has chronic kidney disease No Sheridan Berman Patient has chronic kidney disease Care Plan Patient has chronic kidney disease No Sheridan Berman Patient has chronic kidney disease Care Plan Patient has chronic kidney disease No Sheridan Berman Procedures Procedure Name Priority Date/Time Associated Diagnosis [...] hyperglycemia, with long-term current use of insulin ([facility]) LIPID PANEL WITH REFLEX TO [...] AM EST Narrative 07/12/2025 10:17 AM EST [place] [phone] Ultrasound Report Signed Patient: Lizet Cash MR# : [id number] : 1975 Acct:[id number] Age/Sex: 49 / F ADM Date: 07/12/25 Loc: HO.US Attending Dr: Rachel Gardner JIG AND FIXTURE REPAIRER- Ordering Physician: Rachel Gardner JIG AND FIXTURE REPAIRER- Date of Service: 07/12/25 Procedure(s): US abdomen barahona w elastography Accession Number(s): [id number] cc: Ingrid Wolfe MD; Rachel Gardner JIG AND FIXTURE REPAIRER- Reason for Exam: K76.0 - Fatty (change [...] of Radiologists in Ultrasound Liver Stiffness Thresholds (2019): LIVER STIFFNESS THRESHOLDS: *Shear wave velocity less [...] 07/12/25 1014 DD/ 0949 TD/TT: 07/12/25 1000 Piano Regulator Inspector: Procedure Note Donotuseinterpreter, Image - 07/12/[address] [address] Ultrasound Report Signed Patient: Augusto Cash# : [id number] : 1975Acct:[id number] Age/Sex: 49 / FADM Date: 07/12/25 Loc: HO.US Attending Dr: Rachel SMITH-PATRICIO Ordering Physician: Rachel Gardner Date of Service: 07/12/25 Procedure(s): US abdomen barahona w elastography Accession Number(s): [id number] cc: Ingrid Wolfe MD; Rachel Gardner [facility] Reason for Exam: K76.0 - Fatty (change [...] by: Marcus Guerra MD 07/12/2025 10:14 AM [facility] Dictated By: Marcus Guerra MD Signed By: <Electronically signed by Marcus Guerra MD in OV> 07/12/25 1014 DD/ 0949 TD/TT: 07/12/25 1000 Piano Regulator Inspector: us [facility] External Provider IMG US PROCEDURES Final Result * VITAMIN D 25-OH (D2 AND D3) (05/20/2025 9:50 AM EDT) Vitamin D, 25-OH, D2 <4 ng/mL [facility] Comment:This test was develo ped and its analytical performancecharacteristics have been determined by [employer] [place], [place]. It hasnot been cleared or approved by the U.S. Food and DrugAdministration. This assay has been validated pursuantto the CLIA regulations and is used for clinicalpurposes.THIS TEST WAS PERFORMED AT:[employer] [id number] [place] [phone] GARZA MD,PHD Vitamin D, 25-OH, D3 33 ng/mL [facility] Comment:This test was develo ped and its analytical performancecharacteristics have been determined by [employer] [place], [place]. It hasnot been cleared or approved by the U.S. Food and DrugAdministration. This assay has been validated pursuantto the CLIA regulations and is used for clinicalpurposes. Vitamin D, 25-OH, Total 33 30 - 100 ng/mL [facility] Comment:Vitamin D, 25-Hydrox y reports [...] = 30 ng/mL.For additional information, please refer tohttp://[email or web address]/faq/HDZ396(This link is being provided for informational/educational purposes only.) 05/20/2025 9:50 AM EDT 05/20/2025 9:50 AM EDT us Generic External Data Provider LAB BLOOD ORDERAB LES Final Result [facility] [address] [place] [phone] * Vitamin B12 (Cobalamin) and Folate Panel, Serum (05/20/2025 9:50 AM EDT) Pathologist [facility] Vitamin B12 361 200 - 900 pg/mL [facility] Comment:NORMAL 200-900 PG/ML INDETERMINATE 160-199 PG/ML DEFICIENT < 160 PG/ML Folate 11.3 > or = 4.0 ng/mL [facility] Comment:Reference Values:> o r = 4.0 ng/mL< 4.0 ng/mL suggests folate deficiency Methotrexate, aminopterin and folinic acid(leucovorin) are chemotherapeutic agents whose molecularstructures are similar to folate; therefore, the Architectfolate assay cannot be used for patients using these drugs. 05/20/2025 9:50 AM EDT 05/20/2025 9:50 AM EDT Generic External Data Provider LAB BLOOD ORDERAB LES Final Result Performing Organization Address [facility] Co de Phone Number [facility] [address] [place] [phone] * TSH with Reflex to Free T4 (05/20/2025 9:50 AM EDT) Pathologist [facility] TSH reflex Free T4 1.30 0.32 - 4.0 uIU/mL [facility] 05/20/2025 9:50 AM EDT 05/20/2025 9:50 AM EDT Generic External Data Provider LAB BLOOD ORDERAB LES Final Result Performing Organization Address City/[facility] Co de Phone Number [facility] [address] [place] [phone] * Tissue Transglutaminase (tTG) Antibody (IgG) (05/20/2025 9:50 AM EDT) [facility] Tissue Transglutaminase Antibody IgG <1.0 U/mL [facility] Comment:Value Interpretation ----- <15.0 Antibody not detected> or = 15.0 Antibody detectedTHIS TEST WAS PERFORMED AT:[employer] [place] [phone] KO MD 05/20/2025 9:50 AM EDT 05/20/2025 9:50 AM EDT us Generic External Data Provider LAB BLOOD ORDERAB LES Final Result [facility] [address] [place] [phone] [phone] * BI Mammogram Diagnostic Tomosynthesis Bilateral (03/06/2025 12:00 PM EDT) Anatomical Region Laterality Modality Breast Bilateral Mammography 03/06/2025 12:0 0 PM EDT Narrative 03/06/2025 1:55 PM EDT [address] [place] [id number] Mammography Report Signed Patient: Lizet Cash MR# : [id number] : 1975 Acct:[id number] Age/Sex: 49 / F ADM Date: 03/06/25 Loc: HO.MAMMO Attending Dr: Ingrid Wolfe MD Ordering Physician: Ingrid Wolfe MD Results: 3.12MProbably Benign Finding - 12 month F/U Suggested Date of Service: 03/06/25 Follow Up: 12 month diagnos tic follow up Procedure(s): MM tomosynthesis diagnostic BI Accession Number(s): [id number] cc: Ingrid Wolfe MD EXAMINATION: MM DIAGNOSTIC [...] DO 03/06/2025 01:52 PM EDT RP Workstation: [employer] Dictated By: Winifred Perez DO Signed By: <Electronically signed by Winifred Perez DO in OV> 03/06/25 1352 DD/ 1200 TD/TT: 03/06/25 1250 Piano Regulator Inspector: Procedure Note Donotuseinterpreter, Image - 03/06/2025 [facility] [address] [place] [id number] Mammography Report Signed Patient: Augusto Cash# : [id number] : 1975Acct:[id number] Age/Sex: 49 / FADM Date: 03/06/25 Loc: HO.MAMMO Attending Dr: Ingrid Wolfe MD Ordering Physician: Ingrid Wolfe MD Results: 3.12MProbably Benign Finding - 12 month F/U Suggested Date of Service: 03/06/25Follow Up: 12 month diagnos tic follow up Procedure(s): MM tomosynthesis diagnostic BI Accession Number(s): [id number] cc: Ingrid Wolfe MD EXAMINATION: MM DIAGNOSTIC [...] Winifred Perez DO 03/06/2025 01:52 PM EDT Workstation: [employer] Dictated By: Winifred Perez DO Signed By: <Electronically signed by Winifred Peerz DO in OV> 03/06/25 1352 DD/ 1200 TD/TT: 03/06/25 1250 Piano Regulator Inspector: Ingrid Wolfe MD IMG BI PROCEDURES Final Result * (ABNORMAL) POCT HGB A1C (02/21/2025 10:41 AM EDT) Hemoglobin A1C 8.2(A) 4.0 - 5.7 % QC Media Lot # [id number] Lot# Expiration Date ,[id number] Blood 02/21/2025 10:4 1 AM EDT Ingrid Wolfe MD POINT OF CARE TEST ENTER /EDIT ORDERABLES Final Result * (ABNORMAL) Lipid Panel with Reflex to Direct LDL (11/29/2024 8:21 AM EDT) Triglycerides 178(H) <150 mg/dL [facility] Comment:Desirable Triglyceri de: less than 150 mg/dLBorderline High Triglyceride 150-199 mg/dLHigh Triglyceride: 200-499 mg/dLVery High Triglyceride: greater than or equal to 5OO mg/dL Cholesterol 144 <200 mg/dL [facility] Comment:Desirable Cholestero l: less than 200 mg/dLBorderline High Cholesterol: 200-239 mg/dLHigh Cholesterol: greater than 239 mg/dL LDL Cholesterol Calculated 72 <100 mg/dL [facility] Comment:Desirable LDL: less than 100 mg/dLNear Optimal/Above Optimal LDL: 110- 129 mg/dLBorderline High LDL: 130-159 mg/dLHigh LDL: 160-189 mg/dLVery High LDL: greater than or equal to 190 mg/dL HDL Cholesterol 37(L) >40 mg/dL [facility] Comment:Desirable HDL: great er than 40 mg/dL Note: This HDL assay may give artificially low results in patients with liver disease. Blood 11/29/2024 8:21 AM EDT 11/29/2024 11:37 AM EDT us Ingrid Wolfe MD LAB BLOOD ORDERABLES Fin al Result [facility] [address] [place] [phone] * Hepatitis Panel, General (10/04/2024 8:16 AM EST) Hepatitis A IgM Nonreactive Nonreactive [facility] Comment:IgM antibodies to GUILLORY V not detected; does not exclude earlyacute or recovered HAV infection. ~Hepatitis B Surface Antibody REACTIVE Nonreactive [facility] Comment:REACTIVE: > 11.99 mI U/mL Hepatitis B Core Antibody Nonreactive Nonreactive [facility] Hepatitis C Antibody Nonreactive Nonreactive [facility] Comment:Antibodies to HCV no t detected; does not exclude early acuteHCV infection. Hepatitis B Surface Ag Negative Negative [facility] Blood 10/04/2024 8:16 AM EST 10/04/2024 11:15 AM EST us Ingrid Wolfe MD LAB BLOOD ORDERABLES Fin al Result Performing Organization Address City/[facility]/ZIP Co de Phone Number [facility] [address] [place] [phone] * HIV-1/2 Antigen and Antibodies, Fourth Generation, with Reflexes (10/04/2024 8:16 AM EST) HIV AB/AG Nonreactive Nonreactive [facility] Comment:HIV-1 p24 Ag and/or HIV-1/HIV-2 Ab not detected.A test result that is nonreactive does not exclude thepossibility of exposure to or infection with HIV-1 and/orHIV-2. Nonreactive results in this assay for individualswith prior exposure to HIV-1 and/or HIV-2 may be due toantigen and antibody levels that are below the limit ofdetection of this assay.The [employer] HIV Ag/Ab Combo assay result andsupplemental assay results should be interpreted inconjunction with the patient's clinical presentation,history and other laboratory results. If the results areinconsistent with clinical evidence, additional testing issuggested to confirm the result. Blood Venous blood specimen / Unknown 10/04/2024 8:16 AM EST 10/04/2024 11:15 AM EST us Ingrid Wolfe MD LAB BLOOD ORDERABLES Fin al Result Performing Organization Address City/[facility]/ZIP Co de Phone Number [facility] [address] [place] [phone] * Albumin, Random Urine W/Creatinine (08/31/2024 2:09 PM EST) Creatinine, Urine 31.14 mg/dL [facility] Microalbumin Urine <5.0 mg/L [facility] Microalbum Creatinine Ratio Ur TNP <30 ug/mg cr [facility] Comment:Unable to calculate albumin/creatinine ratio due to lowmicroalbumin or creatinine result. Urine (Urine, Random) 08/31/2024 2:09 PM EST 08/31/2024 4:00 PM EST us Ingrid Wolfe MD LAB URINE ORDERABLES Fin al Result [facility] [address] [place] [phone] * Pap Smear (12/14/2023 11:23 AM EDT) Swab Cervix uteri structure / Unknown 12/14/2023 11:23 AM EDT 12/14/2023 2:20 PM EDT Narrative [facility] - 01/02/2024 11:54 AM EDT ----- ------- Name: Lizet Cash Age/Sex: 48/F : 1975 Unit#: [id number] Attend Dr: Ingrid Wolfe MD Re12/14/23 Status: DEP REF Location: [facility] Disch: ----- ------- SPEC : [id number] RECD: 12/14/23 STATUS: LATISHA VARELA NUM: [id number] JUANCARLOS: 12/14/23-[address]: Ingrid Wolfe MD ENTERED: 12/14/236430 SP TYPE: Pap Smr OTHR DR: ORDERED: [...] CYTOLOGY ORDERABLES Final Result Performing Organization Address [facility] Co de Phone Number [facility] [address] [place], [place] [phone] * (ABNORMAL) Hm Colonoscopy (04/27/2023) Colonoscopy Abnormal(A ) Normal [facility] Ingrid Wolfe MD HEALTH MAINTENANCE Final Result Performing Organization Address [facility] Co de Phone Number [facility] [address] [place], [place] [phone] * Image-Guided Pap with Age-Based Screening??with CT/NG,??Trichomonas (11/29/2022 10:52 AM EDT) Comment [facility] Comment: This order for age-based cervical cancer and STI screening follows ACOG guidelines(PB 168, 140, BUM535). See individual assays for performing site location. Clinical Information: HISTORY OF HYST DUE YSUUF [facility] LMP: NONE GIVEN [facility] Prev. PAP: YES [facility] Prev. BX: NONE GIVEN [facility] SOURCE: None given [facility] Statement Of Adequacy: SATISFACTORY FOR EVALUATION [facility] Interpretation/Re sult: Negative for intraepithelial lesion or malignancy. [facility] Comment: This Pap test has been evaluated with computer assisted technology. [facility] Digital Computer Operator: Qu Autonomous Marine Systemst Comment: KF, CT(ASCP) CT screening location: [place] [address] Review Digital Computer Operator: Mailanat Comment: BLC,CT(ASCP) CT screening location: [place] [phone] (Always Message) Que st Environmental Support Solutionst Comment: EXPLANATORY NOTE: The Pap is a [...] HPV nRNA E6/E7 Not Detected Not Detected [facility] Comment: Methodology: Sander Portable Machine-Mediated Amplification This assay detects E6/E7 viral messenger RNA (mRNA) from 14 high-risk HPV types (16,18,31,33,35,39,45,51,52,56,58,59,66,68). Cervical sources are required for HPV testing. If a vaginal source from a patient who has had a total hysterectomy with removal of cervix was submitted, please contact the testing laboratory for alternative testing options. For additional information, please refer to http://education.Advantagene/faq/KOO921s5 (This link if provided for information/ educational purposes only.) Chlamydia trachomatis RNA, TMA, Urogenital NOT DETECTED NOT DETECTED [facility] Neisseria gonorrhoeae RNA, TMA, Urogenital NOT DETECTED NOT DETECTED [facility] Comment [facility] Comment: The analytical performance characteristics of this assay, when used to test SurePath(TM) specimens have been determined by [facility]. The modifications have not been cleared or approved by the FDA. This assay has been validated pursuant to the CLIA regulations and is used for clinical purposes. For additional information, please refer to https://Glimpse.com.Advantagene/faq/RZF835 (This link is being provided for information/ educational purposes only.) Trichomonas vaginalis, QL, TMA, PAP Vial NOT DETECTED NOT DETECTED [facility] Comment: The analytical performance characteristics of this assay have been determined by [facility]. The modifications have not been cleared or approved by the FDA. This assay has been validated pursuant to the CLIA regulations and is used for clinical purposes. For additional information, please refer to http://Glimpse.com.Advantagene/ faq/Trichomonastma (This link is being provided for information/ educational purposes only.) Cytology specimen container (physical object) 11/29/2022 10:52 AM EDT 11/30/2022 12:36 AM EDT Leeann Wood [facility] CYTOLOGY ORDERABLES F inal Result [facility] [address], [place] [phone] [facility] [address] [place] [phone] from Last 3 Months or Most Recently [...] kidney disease 07/11/2025 Weekly blood pressure task 08/09/2025 Weekly blood pressure task 08/09/2025 Weekly blood pressure task 08/09/2025 Patient has diabetic eye disease 08/09/2025 Patient has diabetic eye disease 08/09/2025 Patient has diabetic eye disease 08/09/2025 Patient has chronic kidney disease 08/09/2025 Patient has chronic kidney disease 08/09/2025 Patient has chronic kidney disease 08/09/2025 Insurance [facility] C3 HSN FULL DENTAL-[facility] MEDICAID STAND ADULT [address] [place] [address] Care Teams Piling Setter Relationship Specialty Start Date End Date Ingrid Wolfe MD [address] [place] [phone] PCP - General Internal Medicine 09/10/22 Nick Catsellanos FNP [address] [place] [address] Nurse Practitioner Family Medicine 07/04/23 Apolonia Mars patient care representative Meat Cutter ApprenticeMarket Consultant 11/16/23
--- OUTSIDE RECORDS SUMMARY | 2025-08-19 11:24 | XMS_ITS | Encounter Summary ---
Author Organization [employer] Address [address] [facility] 7t [place] [address] Care Team Providers Care Water Systems Designer Name Role Phone Cheryl Fitzpatrick MD Primary Care Provider + Edu Leung PharmD Unavailable [phone] Nick Castellanos COMPETITIVE SHOPPER Unavailable Unavailable Reason for Visit * Reason Comments Med Refill Encounter Details Date Type Department Care Team (Late st Contact Info) Description 10/05/2022 Refill [facility] [address] [place] [address] [phone] Name, MD Pradeep [address] [place] [address] [phone] Type 2 diabetes mellitus with hyperglycemia, with long-term current use of insulin ([facility]); Anxiety Social History Tobacco [...] 10:30 AM EST Office Visit [facility] [address] [place] [address] Cheryl Fitzpatrick MD [address] [place] [address] documented as of this encounter Visit Diagnoses Diagnosis Type 2 diabetes mellitus with hyperglycemia, with long-term current use of insulin ([facility]) Anxiety Anxiety state, unspecified documented in this encounter Additional Health Concerns Assessment Noted Time PHQ-9 Depression Total Score: 19 023 9:39 AM EST documented as of this encounter Care Teams Water Systems Designer Relationship Specialty Start Date End Date Cheryl Fitzpatrick MD [address] [place] [phone] PCP - General Internal Medicine 09/10/22 Edu Leung PharmD [address] [place] [phone] Pharmacist Internal Medicine 06/14/23 06/28/23 Nick Castellanos FNP [address] [place] [phone] Nurse Practitioner Family Medicine 07/04/23 Court Shay Mercerizer 11/11/23 02/10/24 Apolonia Mars care manager MercerizerData Examination Clerk 11/16/23 documented as of this encounter
--- OUTSIDE RECORDS SUMMARY | 2025-08-19 11:24 | XMS_ITS | Encounter Summary ---
Author Organization [employer] Address [address] [facility] [address]t [place] [address] Care Team Providers Care Exhibit Builder Name Role Phone Cheryl Fitzpatrick MD Primary Care Provider + Edu Leung PharmD Unavailable [phone] Nick Castellanos CRANBERRY SORTER Unavailable Unavailable Reason for Visit * Reason Comments Med Refill Encounter Details Date Type Department Care Team (Late st Contact Info) Description 12/18/2022 Refill [facility] [address] [place] [address] Marybel Webster MD [address] [place], [place] [phone] Social History Tobacco Use Types Packs/Day Years [...] 10:30 AM EST Office Visit [facility] [address] [place] [address] Cheryl Fitzpatrick MD [address] [place] [address] documented as of this encounter Visit Diagnoses Not on filedocumented in this encounter Additional Health Concerns Assessment Noted Time PHQ-9 Depression Total Score: 9 11/16/19 10:11 AM EDT documented as of this encounter Care Teams Exhibit Builder Relationship Specialty Start Date End Date Cheryl Fitzpatrick MD [address] [place] [phone] PCP - General Internal Medicine 09/10/22 Edu Leung, Merari [address] [place] [phone] Pharmacist Internal Medicine 06/14/23 06/28/23 Nick Castellanos FNP [address] [place] [phone] Nurse Practitioner Family Medicine 07/04/23 Court Shay Certified Recreational Therapist 11/11/23 02/10/24 Apolonia Mars care aid Certified Recreational TherapistSourcing Assistant 11/16/23 documented as of this encounter
--- OUTSIDE RECORDS SUMMARY | 2025-08-19 11:24 | XMS_ITS | Encounter Summary ---
Author Organization [employer] Address [address] [facility] 7t [place] [address] Care Team Providers Care Developer Advocate Name Role Phone Cheryl Fitzpatrick MD Primary Care Provider + Nick Castellanos Unavailable Unavailable Reason for Visit * Reason Comments Med Refill Encounter Details Date Type Department Care Team (Late st Contact Info) Description 11/10/2023 Refill [facility] [address] [place] [address] Nick Castellanos FNP Type 2 diabetes mellitus with hyperglycemia, with long-term current use of insulin ([facility]) Social History Tobacco Use Types [...] AM EST Office Visit [facility] [address] [place] [phone] Cheryl Fitzpatrick MD [address] [place] [address] documented as of this encounter Goals Goal [...] as of this encounter Care Teams Developer Advocate Relationship Specialty Start Date End Date Cheryl Fitzpatrick MD [address] [place] [address] PCP - General Internal Medicine 09/10/22 Nick Castellanos FNP [address] [place] [address] Nurse Practitioner Family Medicine 07/04/23 Court Shay Oil Furnace Installer 11/11/23 02/10/24 Apolonia Mars home care and home health aides teacher Oil Furnace InstallerDance Artist 11/16/23 documented as of this encounter
--- OUTSIDE RECORDS SUMMARY | 2025-08-19 11:24 | XMS_ITS | Encounter Summary ---
Author Organization [employer] Address [address] [facility] [address] [place] [address] Care Team Providers Care Warp Hauler Name Role Phone Cheryl Fitzpatrick MD Primary Care Provider + Edu Leung PharmD Unavailable [phone] Nick Castellanos HUMANITIES AND LANGUAGES PROFESSOR Unavailable Unavailable Encounter Details Date Type Department Care Team (Late st Contact Info) Description 10/05/2022 Orders Only [facility] [address] [place] [address] [phone] Cheryl Fitzpatrick MD [address] [place], [place] [phone] Fibromyalgia (Primary Dx); Migraine with aura and [...] Description 08/27/2025 10:30 AM EST Office Visit [facility] [address] [place] [address] Cheryl Fitzpatrick MD [address] [place] [address] documented as of this encounter Visit Diagnoses Diagnosis Fibromyalgia- Primary Unspecified myalgia and myositis Migraine with aura and without status migrainosus, not intractable documented in this encounter Additional Health Concerns Assessment Noted Time PHQ-9 Depression Total Score: 19 023 9:39 AM EST documented as of this encounter Care Teams Warp Hauler Relationship Specialty Start Date End Date Cheryl Fitzpatrick MD [address] [place] [address] PCP - General Internal Medicine 09/10/22 Edu Leung, Merari [address] [place] [phone] Pharmacist Internal Medicine 06/14/23 06/28/23 Nick Castellanos FNP [address] [place] [phone] Nurse Practitioner Family Medicine 07/04/23 [address] Shay Crane Follower 11/11/23 02/10/24 Apolonia Mars respiratory care assistant Crane FollowerPhysician Extender 11/16/23 documented as of this encounter
== END 2025-08-19 10:51 | disposition home or self-care (01) ==
LOC: HO.HGI 10:10
PROVIDERS: PCP Internal Medicine; Visit Provider Nurse Practitioner Family
DX: R14.0 Abdominal distension (gaseous) (principal); R13.10 Dysphagia, unspecified; K21.9 Gastro-esophageal reflux disease without esophagitis; K59.01 Slow transit constipation; R10.13 Epigastric pain
CPT/HCPCS: 99214

== ENCOUNTER → 2025-08-19 10:09 | Outpatient (BNVA) | payer MEDICAID, SELFPAY | PROVIDERS: PCP Internal Medicine; Visit Provider Nurse Practitioner Family | DX: K21.9 Gastro-esophageal reflux disease without esophagitis (principal); K59.01 Slow transit constipation; R14.0 Abdominal distension (gaseous); R13.10 Dysphagia, unspecified; R10.13 Epigastric pain; Z79.899 Other long term (current) drug therapy | CPT/HCPCS: 99212 ==